=== PATIENT | male | born 1955 | race Caucasian/White ===

== ENCOUNTER → 2022-05-05 14:32 | Outpatient (BNVA) | payer OTHER, SELFPAY | PROVIDERS: Absent Provider Family Medicine; PCP Family Medicine; Visit Provider Internal Medicine | DX: I50.9 Heart failure, unspecified (principal); I25.10 Atherosclerotic heart disease of native coronary artery without angina pectoris; E78.5 Hyperlipidemia, unspecified; I25.2 Old myocardial infarction | CPT/HCPCS: 93005; 99204 ==

== ENCOUNTER → 2022-07-13 14:24 | Outpatient (BNVA) | payer OTHER, SELFPAY | PROVIDERS: PCP Family Medicine; Visit Provider Internal Medicine Cardiovascular Disease | DX: Z95.0 Presence of cardiac pacemaker (principal); I25.10 Atherosclerotic heart disease of native coronary artery without angina pectoris; I25.5 Ischemic cardiomyopathy | CPT/HCPCS: 99214 ==

== ENCOUNTER 2022-07-20 11:15 | Outpatient (CLI) | payer OTHER, SELFPAY ==
[2022-07-20 11:49] VITALS: BMI 27.5
[2022-07-20 11:49] LABS: Basophils # 0.1 10^3/uL (0.0-0.1); Basophils % 0.9 %; Eosinophils # 0.2 10^3/uL (0.0-0.8); Hematocrit 41.3 % (42.0-52.0); Hemoglobin 12.7 g/dL (11.7-16.6); Lymphocytes # 1.5 10^3/uL (0.8-4.8); Lymphocytes % 21.8 %; Mean Corpuscular HGB Conc 30.8 g/dL (30.0-36.0); Mean Corpuscular Hemoglobin 31.4 pg (28.0-34.0); Mean Corpuscular Volume 102.2 fl (80-94); Mean Platelet Volume 10.1 fL (7.4-10.4); Monocytes # 0.5 10^3/uL (0.2-0.9); Monocytes % 7.7 %; Neutrophils # 4.42 10^3/uL (1.8-7.7); Neutrophils % 66.3 %; Nucleated Red Blood Cells % 0 %; Platelet Count 165 10^3/cmm (130-400); Red Blood Count 4.04 10^6/uL (4.1-5.3); Red Cell Distribution Width 13.2 % (12.1-15.1); White Blood Count 6.7 10^3/uL (4.0-10.0)
[2022-07-20 12:00] LABS: Partial Thromboplastin Time 29.4 SECONDS (23.9-36.7)
[2022-07-20 12:07] LABS: Anion Gap 9.6 (5-19); Blood Urea Nitrogen 12 mg/dL (8-23); Calcium 10.2 mg/dL (8.5-10.5); Carbon Dioxide 29 mmol/L (22-29); Chloride 102 mmol/L (98-107); Glomerular Filtration Rate 74.3 mL/min (90-130); Glucose 105 mg/dL (65-115); Osmolality Calculated 282 mOsm/kg (285-295); Potassium 4.6 mmol/L (3.5-5.1); Sodium 136 mmol/L (136-145)
[2022-07-20 12:41] LABS: INR 0.94 (0.8-1.2)
--- NOTE | 2022-07-20 12:42 | P.HPUD_ITS ---
Surgery/Procedure H&P Update DATE OF PROCEDURE: July 20, 2022 DATE H&P PERFORMED: 07/13/22 H&P UPDATE INFORMATION: I have reviewed H&P completed within last 30 days, I have examined patient prior to procedure and No changes to prior documentation PREOP DIAGNOSIS: FÁTIMA of the BANKING PARALEGAL-D PRIMARY INDICATION FOR PROCEDURE: As above PLANNED PROCEDURE: Operation Date: 07/20/22 12:30 Proposed Procedures p gen change out 3324,Z45.010(Not Applicable) - Narciso Frederick MD PATIENT REASSESSED PRIOR TO SEDATION, WITH NO CHANGE NOTED: Yes PHYSICAL EXAM: alert, oriented x 3 and clear to auscultation bilaterally AIRWAY EVAL/ANESTHESIA PLAN: normal airway, see other exam findings, ASA I, ASA III, Monitored Anesthesia, Local Anesthesia, Risks, benefits & alternatives of sedation and/or procedure discussed and Patient agrees to continue as planned
[2022-07-20 14:00] VITALS: PULSE 70
--- NOTE | 2022-07-20 14:03 | PM.OP ---
Operative Report Date of procedure: July 20, 2022 Pre-op diagnosis: Preop Diagnosis FÁTIMA of the LIFE MANAGEMENT TEACHER-D Procedure: PROCEDURE: ICD REVISION PREOPERATIVE DIAGNOSIS: LIFE MANAGEMENT TEACHER-D elective replacement indication. POSTOPERATIVE DIAGNOSIS: LIFE MANAGEMENT TEACHER-D elective replacement indication. ESTIMATED BLOOD LOSS: None COMPLICATIONS: None. BRIEF HISTORY: The patient is 66-year-old white male who had a LIFE MANAGEMENT TEACHER-D implantation for heart failure /primary prophylaxis . He also is known to have complete heart block. The patient was found to have elective replacement indication, during routine office followup evaluation. For further management of patient's condition and for the symptomatic bradycardia/complete heart block, the patient required an LIFE MANAGEMENT TEACHER-D revision. Patient has a history of atherosclerotic heart disease, myocardial infarction, congestive heart failure with severe LV systolic dysfunction and complete heart block. The procedure was explained to the patient and his in detail with the risks and benefits. The risks of bleeding, hematoma, vascular injury, infection and other concomitant complications were explained in detail, which the patient understood well and consented to proceed. PROCEDURES PERFORMED: 1. Explantation of the old LIFE MANAGEMENT TEACHER-D device . 2. Implantation of the new LIFE MANAGEMENT TEACHER-D device The patient brought to the Cardiac Informatics Physician Liaison. The left side of the neck and the subclavian area were cleaned and draped in a sterile fashion. 1% Xylocaine was used for local anesthetic agent. A 2 inch long incision was made just below the previous pacemaker scar. By sharp and blunt dissection, the ICD pocket was accessed. The old generator was delivered from the pocket. The generator was detached from the lead s. The new generator was attached to the leads. The ICD pocket was copiously irrigated with vancomycin solution. Complete hemostasis was achieved. The lead was positioned behind the generator and the generator was attached to the pectoralis fascia by suturing with 0 Surgilon. Sponge counts were confirmed. The LIFE MANAGEMENT TEACHER-D pocket was closed in layers. Skin was approximated using 4-0 Vicryl. EXPLANTED DEVICE: LIFE MANAGEMENT TEACHER-D device: Date of implant 01/11/2016 Brand: Medtronic. Model number: VIVA CRTD Serial number: [id number]. IMPLANTED DEVICES: Ventricular Lead: Date of implantation: 01/11/2016 Model number: [id number] Serial number: [id number] Make: Medtronic. Atrial Lead Date of implantation 10/24/2015 Model number satrox S Serial number-[id number] Make: Biotronik LV lead Date of implant: 10/24/2015 Model: Corox Serial number: [id number] Make: [employer]oy[employer]ronik Implanted Generator: Date of implantation: 07/20/2022 Brand: [employer] LIFE MANAGEMENT TEACHER-D [email or web address] Model number: [id number]. Serial number: [id number] Stimulation Threshold: Through the Device--the ventricular sensing was not updated because of the dependency Lead impedance was 342 ohms and the pacing threshold was 1.0 volts at 0.4 milliseconds. The atrial sensing was 2.3 millivolts. The lead impedance was 551 ohms and the pacing threshold was 0.75 volts at 0.4 ms. The LV lead impedance was 551 ohms with a pacing threshold of 1.75 and pulse width of 0.4 ms the HV lead impedance was 69 ohms The pacemaker was set for DDDR mode with an upper rate of 130 and a lower rate of 60. The DFT testing was not done Ventricular tachycardia detection rate was set at 171 bpm The ventricular fibrillation detection rate was set at 200 bpm A pressure dressing was applied over the ICD site. The patient was transferred back to medical floor in stable condition.
[2022-07-20 19:10] VITALS: BP 127/86; PULSE 66; RESP 15
[2022-07-20] MEDS: mirtazapine 15 mg Tablet PO (19:57)
[2022-07-20] MEDS: quetiapine 25 mg Tablet 75 MG PO (19:57)
[2022-07-20] MEDS: lithium carbonate 300 mg Capsule PO (19:58)
[2022-07-20] MEDS: ceFAZolin 2,000 MG in sodium chloride 0.9% (plus) 50 ML 100 MG IV (19:59)
[2022-07-20 22:00] VITALS: PULSE 70
[2022-07-20] MEDS: HYDROcodone-acetaminophen 5-325 mg Tablet 1 TAB PO (22:10)
[2022-07-21] MEDS: HYDROcodone-acetaminophen 5-325 mg Tablet 1 TAB PO ×2 (02:15→10:23)
[2022-07-21] MEDS: ceFAZolin 2,000 MG in sodium chloride 0.9% (plus) 50 ML 100 MG IV ×2 (04:16→10:27)
[2022-07-21 04:55] VITALS: PULSE 71
--- NOTE | 2022-07-21 05:19 | ECG_ITS ---
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 Measurements Intervals [place] Rate: 70 P: 64 [place]: 104 QRS: 248 QRSD: 203 T: 101 QT: 471 QTc: 509 Interpretive Statements ELECTRONIC VENTRICULAR PACEMAKER ABNORMAL RHYTHM ECG No previous ECG available for comparison Electronically Signed On 07-21-2022 22:27:33 BILLING AND INSURANCE COORDINATOR by Narciso Frederick M.D. [id number]
[2022-07-21 07:25] VITALS: BP 136/67; PULSE 66; RESP 12; TEMP 37.1; O2SAT 93
[2022-07-21 08:00] VITALS: PULSE 77; RESP 16; O2SAT 95
[2022-07-21] MEDS: FUROsemide 20 mg Tablet PO (08:30)
[2022-07-21] MEDS: atorvastatin 40 mg Tablet 80 MG PO (08:30)
[2022-07-21] MEDS: doxazosin 4 mg Tablet 8 MG PO (08:30)
[2022-07-21] MEDS: lamoTRIgine 100 mg Tablet 200 MG PO (08:30)
[2022-07-21] MEDS: pantoprazole DR 40 mg Tablet PO (08:31)
[2022-07-21] MEDS: aspirin 81 mg EC Tablet PO (08:31)
[2022-07-21] MEDS: carvedilol 12.5 mg Tablet PO (08:31)
[2022-07-21] MEDS: gabapentin 300 mg Capsule PO (08:36)
--- NOTE | 2022-07-21 09:49 | P.PN_ITS ---
Subjective Subjective: This patient was admitted to the hospital following the CUTTING MACHINE FIXER-D revision for IV antibiotics and monitoring. Patient has been remaining stable with no specific complaints. No hematoma bleeding at the device insertion site. Vital signs are stable. Medications: Medication Review Details: Current Medications Hydrocodone Bitart/Acetaminophen (Hydrocodone-Acetaminophen 5-325 Mg Tablet) 1 tab PO Q4H PRN PRN Reason: MODERATE PAIN Last Admin: 07/21/22 02:15 Dose: 1 tab Albuterol Sulfate (Albuterol 2.5 Mg/3 Ml Neb) 2.5 mg INHALATION Q4H PRN PRN Reason: SOB/WHEEZING Aspirin (Aspirin 81 Mg Ec Tablet) 81 mg PO DAILY [facility] Last Admin: 07/21/22 08:31 Dose: 81 mg Atorvastatin Calcium (Atorvastatin 40 Mg Tablet) 80 mg PO DAILY [facility] Last Admin: 07/21/22 08:30 Dose: 80 mg Carvedilol (Carvedilol 12.5 Mg Tablet) 12.5 mg PO DAILY [facility] Last Admin: 07/21/22 08:31 Dose: 12.5 mg Doxazosin Mesylate (Doxazosin 4 Mg Tablet) 8 mg PO DAILY [facility] Last Admin: 07/21/22 08:30 Dose: 8 mg Furosemide (Furosemide 20 Mg Tablet) 20 mg PO DAILY [facility] Last Admin: 07/21/22 08:30 Dose: 20 mg Gabapentin (Gabapentin 300 Mg Capsule) 300 mg PO DAILY [facility] Last Admin: 07/21/22 08:36 Dose: 300 mg Sodium Chloride (Sodium Chloride 0.9%) 1,000 mls @ 75 mls/hr IV .[id number] [facility] Last Admin: 07/21/22 02:08 Dose: Not Given Cefazolin Sodium 2,000 mg/ (Sodium Chloride) 50 mls @ 100 mls/hr IV Q8H [facility]; Protocol Stop: 07/21/22 11:59 Last Infusion: 07/21/22 04:55 Dose: Infused Lamotrigine (Lamotrigine 100 Mg Tablet) 200 mg PO DAILY [facility] Last Admin: 07/21/22 08:30 Dose: 200 mg Lisinopril (Lisinopril 20 Mg Tablet) 20 mg PO DAILY [facility] Caban Carbonate (Caban Carbonate 300 Mg Capsule) 300 mg PO BID@0900,2100 SC H Last Admin: 07/21/22 08:36 Dose: Not Given Methocarbamol (Methocarbamol 500 Mg Tablet) 500 mg PO DAILY [facility] Last Admin: 07/21/22 08:33 Dose: Not Given Mirtazapine (Mirtazapine 15 Mg Tablet) 15 mg PO BEDTIME [facility] Last Admin: 07/20/22 19:57 Dose: 15 mg Pantoprazole Sodium (Pantoprazole Dr 40 Mg Tablet) 40 mg PO DAILY [facility] Last Admin: 07/21/22 08:31 Dose: 40 mg Quetiapine Fumarate (Quetiapine 25 Mg Tablet) 75 mg PO BEDTIME [facility] Last Admin: 07/20/22 19:57 Dose: 75 mg Vitals/I&O/Wt Last Vital Signs Temp 98.7 F 07/21/22 07:25 Pulse 77 07/21/22 08:00 Resp 16 07/21/22 08:00 BP 136/67 07/21/22 07:25 Pulse Ox 95 07/21/22 08:00 O2 Del Method 07/21/22 08:00 07/20/22 07/21/22 07/21/22 22:59 06:59 14:59 Intake Total 530 / 530 50 / 580 480 / 480 Balance 530 / 530 50 / 580 480 / 480 Weight last 48 hrs Weight 181 lb Physical Exam Narrative: GENERAL: The patient is alert and oriented times three. Not in any acute distress. HEENT: No significant pallor, icterus or lymphadenopathy.Oral cavity: There are no mucous membrane lesions. NECK: Trachea appears to be central. No masses noted. No JVD or thyromegaly appreciated. RESPIRATORY: Chest is symmetrical. No intercostals muscle retraction or any accessory muscle activation. No hematoma or bleeding at the device insertion site. There is no chest wall tenderness. Breath sounds are heard bilaterally. No rales or rhonchi heard. No evidence of any consolidation. BREASTS: Deferred. HEART: The heart sounds are normal. No S3 or S4. No significant murmurs. No pericardial rub ABDOMEN: No vessel pulsations or distention. No tenderness. No organomegaly appreciated. Bowel sounds are normally heard. : Deferred. RECTAL: Deferred. LYMPHATIC: No lymphadenopathy noted in the neck. EXTREMITIES: No edema or cyanosis. No clubbing. MUSCULOSKELETAL: No acute joint deformities or swelling SKIN: There are no significant rashes or ecchymosis NEUROPSYCHIATRIC: The patient is alert and oriented x3. Appears to be in a good mood. No tremors or rigidity noted. Data 07/20/22 11:35 07/20/22 11:35 Other Labs: Laboratory Last Values WBC 6.7 10^3/uL (4.0-10.0) 07/20/22 11:35 RBC 4.04 10^6/uL (4.1-5.3) L 07/20/22 11:35 Hgb 12.7 g/dL (11.7-16.6) 07/20/22 11:35 Hct 41.3 % (42.0-52.0) L 07/20/22 11:35 MCV 102.2 fl (80-94) H 07/20/22 11:35 MCH 31.4 pg (28.0-34.0) 07/20/22 11:35 MCHC 30.8 g/dL (30.0-36.0) 07/20/22 11:35 RDW 13.2 % (12.1-15.1) 07/20/22 11:35 Plt Count 165 10^3/cmm (130-400) 07/20/22 11:35 MPV 10.1 fL (7.4-10.4) 07/20/22 11:35 Neut % (Auto) 66.3 % 07/20/22 11:35 Lymph % (Auto) 21.8 % 07/20/22 11:35 Ector % (Auto) 7.7 % 07/20/22 11:35 Eos % (Auto) 3.0 % 07/20/22 11:35 Baso % (Auto) 0.9 % 07/20/22 11:35 Neut # (Auto) 4.42 10^3/uL (1.8-7.7) 07/20/22 11:35 Lymph # (Auto) 1.5 10^3/uL (0.8-4.8) 07/20/22 11:35 Ector # (Auto) 0.5 10^3/uL (0.2-0.9) 07/20/22 11:35 Eos # (Auto) 0.2 10^3/uL (0.0-0.8) 07/20/22 11:35 Baso # (Auto) 0.1 10^3/uL (0.0-0.1) 07/20/22 11:35 Nucleated RBC % (auto) 0 % 07/20/22 11:35 Nucleated RBCs # 0.0 /100WBC 07/20/22 11:35 PT 12.80 SECONDS (12.1-14.9) 07/20/22 11:35 INR 0.94 (0.8-1.2) 07/20/22 11:35 APTT 29.4 SECONDS (23.9-36.7) 07/20/22 11:35 Sodium 136 mmol/L (136-145) 07/20/22 11:35 Potassium 4.6 mmol/L (3.5-5.1) 07/20/22 11:35 Chloride 102 mmol/L (98-107) 07/20/22 11:35 Carbon Dioxide 29 mmol/L (22-29) 07/20/22 11:35 Anion Gap 9.6 (5-19) 07/20/22 11:35 BUN 12 mg/dL (8-23) 07/20/22 11:35 Creatinine 1.0 mg/dL (0.7-1.2) 07/20/22 11:35 GFR Calculation 74.3 mL/min (90-130) L 07/20/22 11:35 Glucose 105 mg/dL (65-115) 07/20/22 11:35 Calculated Osmolality 282 mOsm/kg (285-295) L 07/20/22 11:35 Calcium 10.2 mg/dL (8.5-10.5) 07/20/22 11:35 A&P Assessment and plan (1) Pacemaker at end of battery life: Patient had the revision of the CUTTING MACHINE FIXER-D yesterday. Currently remaining stable. No postprocedure complications. Finished the course of IV antibiotics. (2) Ischemic cardiomyopathy: No evidence of decompensation. May continue on the current medication. (3) Atherosclerosis of coronary artery of [place] heart without angina pectoris: Patient has no specific symptoms of coronary insufficiency. We will continue on the current medications. (4) Hyperlipidemia, unspecified: Continue on the current treatment. Plan The patient remains stable with no new symptoms, he is being discharged home today. Will be going home with a p.o. antibiotic for 5 days. He also may take multivitamins daily for 2 weeks. Appointment at the [facility] next we ek for a wound check and device check. Attestations Medical Necessity Statement*: Patient is going home today Coding Level of Care Code Acute Code for Chg Fwd Diagnoses Pacemaker at end of battery life Z45.010 Ischemic cardiomyopathy I25.5 Atherosclerosis of coronary artery of [place] heart without angina pectoris I25.10 Hyperlipidemia, unspecified E78.5
[2022-07-21 11:43] VITALS: BP 126/82; PULSE 66; RESP 16; TEMP 36.9; O2SAT 95
== END 2022-07-21 12:15 | disposition home or self-care (01) ==
LOC: CCL 11:18 → CSU 15:46
PROVIDERS: PCP Family Medicine; Visit Provider Internal Medicine Cardiovascular Disease
DX: Z45.02 Encounter for adjustment and management of automatic implantable cardiac defibrillator (principal); I25.5 Ischemic cardiomyopathy; I25.10 Atherosclerotic heart disease of native coronary artery without angina pectoris; E78.5 Hyperlipidemia, unspecified
CPT/HCPCS: 33241; 33264; 36415; 80048; 85025; 85610; 85730; 93005; 96361; 96365; 96367; 97165; 99152; 99153; C1769; C1882; J0690; J1200; J2250; J3010; J3370; J7030; J7050

== ENCOUNTER → 2022-08-01 09:00 | Outpatient (BNVA) | payer OTHER, SELFPAY | PROVIDERS: PCP Family Medicine; Visit Provider Nurse Practitioner Family | DX: Z95.810 Presence of automatic (implantable) cardiac defibrillator (principal) | CPT/HCPCS: 93289; 99024; 99213 ==

== ENCOUNTER 2022-10-04 15:22 | Outpatient (CLI) | payer OTHER, SELFPAY ==
--- NOTE | 2022-10-04 14:45 | USCV_ITS ---
Jim Carney Age: 67 Gender: M : 1955 Exam Date: 10/04/2022 16:04 Ordering Phys: Narciso Frederick MD ([email or web address]) Technologist: CT Exam Location: [facility] [place] Indication: BP: 110 / 60 HR: 65 Rhythm: Sinus Technical Quality: Adequate MEASUREMENTS (Male / Female) Normal Values 2D ECHO LVOT Diameter 2.3 cm LV Ejection Fraction MOD 2C 48.7 % LV Ejection Fraction 2C AL 47.5 % LA Diameter 5.0 cm IVC Diameter 1.7 cm M-MODE Aortic Annulus Diameter 4.0 cm LA Ao Ratio MM 1.4 MV E Point Septal Separation 2.4 cm DOPPLER AV Peak Velocity 163.0 cm/s LVOT Peak Velocity 83.3 cm/s AV Area Cont Eq vti 2.5 cm squared AV Area Cont Eq pk 2.1 cm squared MV Peak Velocity 97.0 cm/s MV Area PHT 5.0 cm squared Mitral E to A Ratio 0.7 MV E' Velocity 27.0 cm/s Mitral E to MV E' Ratio 6.2 Mitral E to LV E' Lateral Ratio 4.5 Mitral E to LV E' Septal Ratio 10.1 TR Peak Velocity 370.4 cm/s TR Peak Gradient 54.9 mmHg TR Mean Velocity 307.0 cm/s TR Mean Gradient 43.3 mmHg TR Velocity Time Integral 180.4 cm TV Peak E Velocity 76.0 cm/s Right Atrial Pressure 3.0 mmHg Pulmonary Artery Systolic Pressu 57.9 mmHg PV Peak Velocity 108.0 cm/s FINDINGS Left Ventricle Diffuse hypokinesia of the left ventricular ejection fraction of 43%. Moderately dilated LV cavity Right Ventricle Normal right ventricular size and systolic function. Right Atrium The right atrium is normal in size. Left Atrium Mildly increased left atrial size. Mitral Valve Thickened mitral valve. Mild mitral valve regurgitation. Aortic Valve Thickened aortic valve. Tricuspid Valve No gross abnormalities noted Pulmonic Valve No gross abnormalities noted Pericardium Normal pericardium without effusion. Aorta Normal ascending aorta dimension. IVC The inferior vena cava appears normal. CONCLUSIONS Diffuse hypokinesia of the left ventricular ejection fraction of 43%. Moderately dilated LV cavity. Mildly increased left atrial size. Thickened mitral valve. Mild mitral valve regurgitation. Thickened aortic valve. There is no pericardial effusion. There are no intracardiac masses. No similar previous studies are available for comparison Dr Narciso Frederick MD [facility] (Electronically Signed) Final Date: 06 Oct 2022 09:49 S
== END 2022-10-04 15:23 | disposition home or self-care (01) ==
LOC: RAD 15:24
PROVIDERS: PCP Family Medicine; Visit Provider Internal Medicine Cardiovascular Disease
DX: I42.9 Cardiomyopathy, unspecified (principal)
CPT/HCPCS: 93306

== ENCOUNTER 2022-11-01 15:20 | Emergency (ER) | payer OTHER, SELFPAY ==
--- NOTE | 2022-11-01 15:24 | XRR_ITS ---
PROCEDURE INFORMATION: Exam: XR Chest Exam date and time: 11/01/2022 3:33 PM Age: 67 years old Clinical indication: Pain; Cough; Angina pectoris; Prior surgery; Surgery date: 6+ months; Surgery type: Pacemaker; Additional info: Chest pain TECHNIQUE: Imaging protocol: Radiologic exam of the chest. Views: 1 view. COMPARISON: No relevant prior studies available. FINDINGS: Lungs: There is patchy indistinct left basilar infiltrate possibly secondary to pneumonia. Remaining lung aguayo are clear. Pleural spaces: Unremarkable. No pleural effusion. No pneumothorax. Heart/Mediastinum: Heart is enlarged. There are pacemaker wires in ICD monitors extending to the right atrium and right ventricle. Bones/joints: Unremarkable for age. XR/XR chest 1V portable [id number] IMPRESSION: Cardiomegaly with patchy left basilar infiltrate, possible pneumonia.
--- NOTE | 2022-11-01 15:24 | ECG_ITS ---
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 Measurements Intervals [place] Rate: 78 P: -28 [place]: 186 QRS: -88 QRSD: 145 T: 87 QT: 392 QTc: 448 Interpretive Statements ELECTRONIC VENTRICULAR PACEMAKER ABNORMAL RHYTHM ECG Compared to ECG 07/21/2022 05:19:22 No significant changes Electronically Signed On 11-01-2022 16:52:13 CDT by Layla Shepherd M.D. [email or web address] centerYUPPTVoh[email or web address].[employer]/store/[id number]
[2022-11-01 15:52] LABS: Basophils % 0.5 %; Eosinophils # 0.1 10^3/uL (0.0-0.8); Eosinophils % 1.5 %; Hematocrit 42.5 % (42.0-52.0); Hemoglobin 12.9 g/dL (11.7-16.6); Lymphocytes # 1.1 10^3/uL (0.8-4.8); Lymphocytes % 14.8 %; Mean Corpuscular HGB Conc 30.4 g/dL (30.0-36.0); Mean Corpuscular Hemoglobin 31.8 pg (28.0-34.0); Mean Corpuscular Volume 104.7 fl (80-94); Mean Platelet Volume 10.1 fL (7.4-10.4); Monocytes # 0.6 10^3/uL (0.2-0.9); Monocytes % 7.7 %; Neutrophils # 5.58 10^3/uL (1.8-7.7); Neutrophils % 75.4 %; Nucleated Red Blood Cells % 0 %; Platelet Count 206 10^3/cmm (130-400); Red Blood Count 4.06 10^6/uL (4.1-5.3); Red Cell Distribution Width 13.9 % (12.1-15.1); White Blood Count 7.4 10^3/uL (4.0-10.0)
[2022-11-01 16:01] VITALS: BP 144/88; PULSE 78; RESP 18; TEMP 37.1; O2SAT 94; BMI 28.1
[2022-11-01 16:47] LABS: Troponin(5th) Baseline 81 ng/L (0-15)
[2022-11-01 16:57] LABS: Alanine Aminotransferase 11 U/L (0-41); Albumin Level 4.2 g/dL (3.5-5.2); Alkaline Phosphatase 104 U/L (40-130); Aspartate Amino Transferase 15 U/L (0-40); Blood Urea Nitrogen 8 mg/dL (8-23); Calcium 9.9 mg/dL (8.5-10.5); Carbon Dioxide 30 mmol/L (22-29); Chloride 104 mmol/L (98-107); Globulin 2.4 g/dL (1.3-4.6); Glomerular Filtration Rate 111.8 mL/min (90-130); Glucose 102 mg/dL (65-115); NT Pro B Type Natriuretic Pept 1017 pg/mL (0-125); Osmolality Calculated 289 mOsm/kg (285-295); Sodium 140 mmol/L (136-145); Total Bilirubin 0.4 mg/dL (0.15-1.2); Total Protein 6.6 g/dL (6.6-8.7)
[2022-11-01 16:59] LABS: Anion Gap 10.1 (5-19); Potassium 4.1 mmol/L (3.5-5.1)
--- NOTE | 2022-11-01 17:08 | ED_ITS ---
HPI - SOB/Dyspnea General: Chief Complaint: Shortness of Breath/Dyspnea Stated Complaint: fluid in chest, sent by Jessu Time Seen by Provider: 11/01/22 16:31 History of Present Illness: HPI Narrative: Patient presents to the ER with complaints of shortness of breath. Patient says he has CHF which has been worsening swelling is been worsening and he went to the [facility] yesterday where he had a chest x-ray that showed a pleural effusion and he was sent home on oxygen. Patient feels worse today. MD elicited complaint: shortness of breath Pertinent past history: congestive heart failure Onset (ago): week(s) (Going downhill for weeks) Timing: constant and progressively worsening Severity: mild Relieving factors: oxygen, bronchodilators and medication Known history of: congestive heart failure Associated symptoms: Reports cough Review of Systems General: Reports: 10 or more systems reviewed and unremarkable except in HPI and below PFSH ED PFSH: Medical History Abdominal aortic aneurysm (AAA) without rupture Cardiac resynchronization therapy defibrillator (HAIRSPRING VIBRATOR-D) in place Hyperlipidemia, unspecified Physical Exam Const: COMMON NORMALS: no acute distress, average body habitus, patient oriented x3, no limitations, healthy appearing, alert and well nourished HENMT: COMMON NORMALS: normocephalic, atraumatic, hearing grossly normal bilaterally, external ears normal, Normal external nose present and moist oral mucous membranes HEAD & SCALP: normocephalic and atraumatic NOSE: Normal external nose present EXTERNAL EAR: Yes external ears normal Eye: COMMON NORMALS: Equal, round and reactive pupils present, EOMs intact bilaterally, conjunctivae normal and no scleral icterus CONJUNCTIVA: Yes conjunctivae normal PUPIL: Yes Equal, round and reactive pupils present Neck/C-Spine: COMMON NORMALS: full ROM, no lymphadenopathy, supple, no meningeal signs, no JVD and Thyroid normal THYROID: Thyroid normal Lymph: LYMPHATIC: no lymphadenopathy noted Chest: COMMONS NORMALS: normal inspection of the chest and normal palpation of entire chest wall Resp: EFFORT & INSPECTION: Yes able to speak in complete sentences AUSCULTATION: diminished lung sounds bilateral and diffuse Cardio: COMMON NORMALS: no JVD, regular rate, regular rhythm, S1 normal heart sound present, S2 normal heart sound present, No gallops present (Cardio), No cl icks present (Cardio) and No murmurs present (Cardio) RATE: regular rate RHYTHM: regular rhythm HEART SOUNDS: S1 normal heart sound present and S2 normal heart sound present GI: COMMON NORMALS: Normal to inspection, nondistended, normoactive bowel sounds present, Soft to palpation, non-tender, No hepatosplenomegaly present and no masses PALPATION: Yes Soft to palpation and Yes No hepatosplenomegaly present : COMMON NORMALS: Yes no CVA tenderness BLADDER/KIDNEY EXAM: Yes no CVA tenderness Back/Pelvis: COMMON NORMALS: no CVA tenderness Extremity: NARRATIVE EXTREMITY EXAM: 1-2+ pitting edema bilateral lower extremities Neuro: COMMON NORMALS: patient oriented x3 SENSORIUM/ORIENTATION: Yes alert MENINGEAL SIGNS: Yes no meningeal signs Course Vital Signs: Vital signs: Vital Signs Temperature 98.8 F 11/01/22 16:01 Pulse Rate 78 11/01/22 16:01 Respiratory Rate 18 11/01/22 16:01 Blood Pressure 144/88 11/01/22 16:01 Pulse Oximetry 94 11/01/22 16:01 Oxygen Delivery Me thod Room Air 11/01/22 16:01 MDM - SOB/Dyspnea Medical Decision Making Patient presents to the ER with complaints of shortness of breath secondary to CHF. [facility] here for further work-up. Patient had labs drawn that showed is a had a normal white count of 7.4 normal hemoglobin hematocrit 12.9 42.5 and slightly elevated BNP of about 1000. Chest x-ray was performed which showed cardiomegaly with a patchy left basilar infiltrate possible pneumonia. Patient was given antibiotics of Rocephin 1 g in his IV. Patient remained on room air and continued to keep his O2 sats approximately 92 to 94% or better. Patient will be discharged on Augmentin 875 1 p.o. twice daily and Lasix an additional 20 mg a day for the next 5 days. Patient should follow back up with his PCP in approximately 1 week for further evaluation and work-up. Medical Records I reviewed the patient's medical records. Lab Data I reviewed the patient's lab results. 11/01/22 15:37 11/01/22 15:37 Labs/Radiology: Radiology Impressions Chest X-Ray 11/01/22 15:24 IMPRESSION: Cardiomegaly with patchy left basilar infiltrate, possible pneumonia. Laboratory Results WBC 7.4 10^3/uL (4.0-10.0) 11/01/22 15:37 RBC 4.06 10^6/uL (4.1-5.3) L 11/01/22 15:37 Hgb 12.9 g/dL (11.7-16.6) 11/01/22 15:37 Hct 42.5 % (42.0-52.0) 11/01/22 15:37 MCV 104.7 fl (80-94) H 11/01/22 15:37 MCH 31.8 pg (28.0-34.0) 11/01/22 15:37 MCHC 30.4 g/dL (30.0-36.0) 11/01/22 15:37 RDW 13.9 % (12.1-15.1) 11/01/22 15:37 Plt Count 206 10^3/cmm (130-400) 11/01/22 15:37 MPV 10.1 fL (7.4-10.4) 11/01/22 15:37 Neut % (Auto) 75.4 % 11/01/22 15:37 Lymph % (Auto) 14.8 % 11/01/22 15:37 [place] % (Auto) 7.7 % 11/01/22 15:37 Eos % (Auto) 1.5 % 11/01/22 15:37 Baso % (Auto) 0.5 % 11/01/22 15:37 Neut # (Auto) 5.58 10^3/uL (1.8-7.7) 11/01/22 15:37 Lymph # (Auto) 1.1 10^3/uL (0.8-4.8) 11/01/22 15:37 [place] # (Auto) 0.6 10^3/uL (0.2-0.9) 11/01/22 15:37 Eos # (Auto) 0.1 10^3/uL (0.0-0.8) 11/01/22 15:37 Baso # (Auto) 0.0 10^3/uL (0.0-0.1) 11/01/22 15:37 Nucleated RBC % (auto) 0 % 11/01/22 15:37 Nucleated RBCs # 0.0 /100WBC 11/01/22 15:37 Sodium 140 mmol/L (136-145) 11/01/22 15:37 Potassium 4.1 mmol/L (3.5-5.1) 11/01/22 15:37 Chloride 104 mmol/L (98-107) 11/01/22 15:37 Carbon Dioxide 30 mmol/L (22-29) H 11/01/22 15:37 Anion Gap 10.1 (5-19) 11/01/22 15:37 BUN 8 mg/dL (8-23) 11/01/22 15:37 Creatinine 0.7 mg/dL (0.7-1.2) 11/01/22 15:37 GFR Calculation 111.8 mL/min (90-130) 11/01/22 15:37 Glucose 102 mg/dL (65-115) 11/01/22 15:37 Calculated Osmolality 289 mOsm/kg (285-295) 11/01/22 15:37 Calcium 9.9 mg/dL (8.5-10.5) 11/01/22 15:37 Total Bilirubin 0.4 mg/dL (0.15-1.2) 11/01/22 15:37 AST 15 U/L (0-40) 11/01/22 15:37 ALT 11 U/L (0-41) 11/01/22 15:37 Alkaline Phosphatase 104 U/L (40-130) 11/01/22 15:37 Troponin T Baseline 81 ng/L (0-15) H 11/01/22 15:37 Troponin T 120 Minute 81.82 ng/L (0-15) H 11/01/22 16:46 Delta Troponin T 0.82 ABS# (0-10) 11/01/22 16:46 NT-Pro-B Natriuret Pep 1017 pg/mL (0-125) H 11/01/22 15:37 Total Protein 6.6 g/dL (6.6-8.7) 11/01/22 15:37 Albumin 4.2 g/dL (3.5-5.2) 11/01/22 15:37 Globulin 2.4 g/dL (1.3-4.6) 11/01/22 15:37 EKG Data EKG 1: I personally reviewed and interpreted this EKG as follows: EKG Interpretation Date: 11/01/22 EKG interpretation time: 15:24 Prior EKG tracings: not available for review Interpretation: EKG showed rate of 78 bpm, [place] interval 186, QRS 145, QTc 448, electronic ventricular pacemaker. EKG 2: I personally reviewed and interpreted this EKG as follows: EKG Interpretation Date: 11/01/22 EKG interpretation time: 17:35 Interpretation: EKG showed ventricular rate of 77 bpm, [place] interval 152, QRS duration 187, QTc 487, electrical ventricular pacemaker Discharge Plan Discharge Patient Disposition: Home Clinical Impression: Community acquired pneumonia Qualifiers: Laterality: left Lung location: lower lobe of lung Qualified Code(s): J18.9 - Pneumonia, unspecified organism Congestive heart failure Qualifiers: Heart failure type: unspecified Heart failure chronicity: acute on chronic Qualified Code(s): I50.9 - Heart failure, unspecified Condition: Stable Prescriptions: New amoxicillin-pot clavulanate 875-125 mg tablet 1 tab PO Q12H Qty: 20 0RF Lasix 20 mg tablet 20 mg PO DAILY Qty: 5 0RF No Action lamotrigine 200 mg tablet 200 mg PO DAILY mirtazapine 15 mg tablet 15 mg PO DAILY quetiapine 25 mg tablet 75 mg PO BEDTIME pantoprazole 40 mg tablet,delayed release (DR/EC) 40 mg PO DAILY albuterol 90 mcg/actuation aerosol 1 mcg inhalation DIRECTED doxazosin 8 mg tablet 8 mg PO DAILY lisinopril 20 mg tablet 5 mg PO QPM atorvastatin 80 mg tablet 80 mg PO DAILY gabapentin 300 mg capsule 300 mg PO DAILY furosemide 20 mg tablet 5 mg PO DAILY methocarbamol 500 mg tablet 500 mg PO DAILY aspirin [Adult Low Dose Aspirin] 81 mg tablet,delayed release (DR/EC) 81 mg PO DAILY Qty: 90 3RF carvedilol 25 mg tablet 12.5 mg PO DAILY Rx Instructions: must administer with a meal/food lithium carbonate 300 mg capsule 300 mg PO DAILY Discharge Orders: Discharge ED (Routine); Ordered 11/01/22 Ordered By: Chauncey Chaparro Referrals: Chanell Lee MD [Primary Care Provider] - 1 week Patient Instructions: Heart Failure (ED), Pneumonia (ED) Activity Restrictions/Additional Instructions: Please take all your medicine as directed this includes your new antibiotic for the next 10 days and the additional Lasix for the next 5 days. Please follow-up with your primary care doctor in the next 7 to 10 days as needed or return to the ER for further evaluation and treatment if your symptoms worsen. 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
--- NOTE | 2022-11-01 17:35 | ECG_ITS ---
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 Measurements Intervals [place] Rate: 77 P: 5 MD: 152 QRS: 137 QRSD: 197 T: -49 QT: 455 QTc: 517 Interpretive Statements ELECTRONIC VENTRICULAR PACEMAKER ABNORMAL RHYTHM ECG Compared to ECG 11/01/2022 15:57:43 No significant changes Electronically Signed On 11-02-2022 6:23:40 CDT by Layla Shepherd M.D. [email or web address]
[2022-11-01 17:41] LABS: Troponin 5 2HR 81.82 ng/L (0-15)
[2022-11-01 17:42] LABS: Troponin 5 2HR Delta 0.82 ABS# (0-10)
[2022-11-01] MEDS: cefTRIAXone 1,000 MG in sodium chloride 0.9% (plus) 50 ML 100 MG IV (18:00)
== END 2022-11-01 19:05 | disposition home or self-care (01) ==
PROVIDERS: Physician Assistant; Emergency Provider Emergency Medicine; PCP Family Medicine
DX: J18.9 Pneumonia, unspecified organism (principal); I50.9 Heart failure, unspecified
CPT/HCPCS: 36415; 71045; 80053; 83880; 84484; 85025; 87040; 93005; 96365; 99285; J0696

== ENCOUNTER → 2022-11-10 15:02 | Outpatient (BNVA) | payer OTHER, SELFPAY | PROVIDERS: PCP Family Medicine; Visit Provider Internal Medicine | DX: I50.9 Heart failure, unspecified (principal); I25.10 Atherosclerotic heart disease of native coronary artery without angina pectoris; I25.5 Ischemic cardiomyopathy; E78.5 Hyperlipidemia, unspecified | CPT/HCPCS: 80048; 83880; 99214 ==

== ENCOUNTER 2023-01-02 07:34 | Outpatient (CLI) | payer OTHER, SELFPAY ==
--- NOTE | 2023-01-02 07:43 | CT_ITS ---
WS: [id number] CT chest w con* [id number] HISTORY: Persistent LEFT PLEURAL EFFUSION TECHNIQUE: Axial imaging performed through the thorax. Coronal and sagittal reformats are submitted. All CT scans at [facility] use at least one of these dose optimization techniques: automated exposure control; mA and/or kV adjustment per patient size (includes targeted exams where dose is mat ched to clinical indication); or iterative reconstruction. CONTRAST: Omnipaque 350; 100 mL IV. DLP: 330.37 mGy.cm COMPARISON: Chest radiograph 11/01/2022 Lungs and central airway: Mild hyperinflation. Mild interstitial thickening along the superior RIGHT major fissure. Linear areas of consolidation at the lung bases. Pleura: Small layering LEFT pleural effusion. Throughout the LEFT thorax there is mild nodularity of the pleura. This is very minimal nodularity but is asymmetric to the RIGHT. Heart and pericardium: Marked enlargement of the heart. Greatest involvement of the LEFT heart chambe rs. Dual lead LEFT subclavian pacer. Mediastinum and minesh: No mediastinum or hilar adenopathy. Vessels: Mild diffuse atherosclerosis aorta. Pulmonary artery is top normal size. Chest wall and lower neck: No soft tissue masses. Upper abdomen: Suprarenal moderate atherosclerotic plaque in aorta. No adrenal mass. Small hiatal her anna. Osseous structures: Schmorl's nodes in the thoracic vertebral bodies at multiple levels. No destructi ve bone lesion. CT/CT chest w con* [id number] IMPRESSION: 1. Small LEFT pleural effusion. There is very mild LEFT pleural nodularity whi ch is asymmetric to the RIGHT. Suggest short-term chest CT follow-up. Recommend chest CT with IV contrast in 3 months to reevaluate the mildly pleural nodular ity. 2. Marked enlargement of the heart. 3. Bibasilar areas of atelectasis. 4. No pneumonia.
--- NOTE | 2023-01-02 07:43 | CT_ITS ---
WS: [id number] CT LUMBAR SPINE TECHNIQUE: Noncontrast CT of the lumbar spine with coronal and sagittal reformatted images. CLINICAL INFORMATION: LUMBAR RADICULOPATHY COMPARISON: None. DLP: 1175.[address] scans at [facility] use at least one of these dose optimization techniques: automated e xposure control; mA and/or kV adjustment per patient size (includes targeted exams where dose is matc hed to clinical indication); or iterative reconstruction. FINDINGS: Osteopenia. Slight anterolisthesis L3 on L4 and L4 on L5. Partially visualized aortic endograft with biiliac extension. Small LEFT pleural effusion. Tiny RIGHT pleural effusion. Adrenal glands are kaye l L1-L2: Mild disc bulging with osteophytic ridging. Mild facet arthropathy. Spinal canal and foramen a re patent. L2-L3: Mild disc osteophyte complex with endplate ridging. Moderate central canal stenosis. Narrowing of the subarticular recess bilaterally. Mild LEFT greater than RIGHT foraminal narrowing. Moderate f acet arthropathy. L3-L4: Slight anterolisthesis L3 on L4. Moderate central canal stenosis. Moderate bilateral foraminal narrowing RIGHT greater than LEFT. Moderate to advanced facet arthropathy. L4-L5: Slight anterolisthesis L4 on L5. Pedicle screw fixation L4-L5 with laminectomy defects interbo dy fusion. Spinal canal and foramen are patent. L5-S1: Slight retrolisthesis L5 on S1. Slight effacement of the ventral thecal sac with contact of th e traversing LEFT greater than RIGHT S1 nerve roots. Foramen are patent. Moderate facet arthropathy. Visualized pelvic bony structures: Normal. Paravertebral soft tissues: Normal. CT/CT lumbar spine wo con* [id number] IMPRESSION: 1. Prior postoperative changes pedicle screw fixation L4-L5 with interbody fus ion. No evidence of pedicle screw loosening. Hardware appears intact. 2. Moderate central canal stenosis L2-L3 due to disc bulging in combination wi th facet arthropathy and ligamentum flavum hypertrophy. Narrowing of the subart icular recess bilaterally. 3. Mild residual central canal stenosis L3-L4 with remote laminectomy defects. 4. Spinal canal and foramen are patent at the L4-L5 and L5-S1 fusion levels. 5. Mild disc bulging L5-S1 with slight contact of the LEFT greater than RIGHT S1 nerve roots. 6. Moderate bilateral L3-L4 foraminal narrowing. Mild bilateral L2-L3 foramina l narrowing. 7. Small LEFT pleural effusion. Tiny RIGHT pleural effusion. 8. Partially visualized aortic endograft with biiliac extension. This can be f urther evaluated with CTA. Excluded aneurysm sac only partially visualized
[2023-01-02] MEDS: iohexol 350 mg/mL 500 mL Btl (per mL) IV (08:07)
== END 2023-01-02 07:35 | disposition home or self-care (01) ==
LOC: RAD 07:37
PROVIDERS: PCP Family Medicine; Visit Provider Family Medicine
DX: J90 Pleural effusion, not elsewhere classified (principal); J98.11 Atelectasis; R91.8 Other nonspecific abnormal finding of lung field; M54.16 Radiculopathy, lumbar region; Z98.1 Arthrodesis status; M48.061 Spinal stenosis, lumbar region without neurogenic claudication; M51.37 Other intervertebral disc degeneration, lumbosacral region; M47.817 Spondylosis without myelopathy or radiculopathy, lumbosacral region
CPT/HCPCS: 71260; 72131; Q9967

== ENCOUNTER → 2023-05-02 11:23 | Outpatient (BNVA) | payer OTHER, SELFPAY | PROVIDERS: PCP Family Medicine; Visit Provider Anesthesiology Pain Medicine | DX: M51.16 Intervertebral disc disorders with radiculopathy, lumbar region; M47.816 Spondylosis without myelopathy or radiculopathy, lumbar region | CPT/HCPCS: 99204 ==

== ENCOUNTER → 2023-05-15 14:48 | Outpatient (BNVA) | payer OTHER, SELFPAY | PROVIDERS: PCP Family Medicine; Visit Provider Anesthesiology Pain Medicine | DX: M54.16 Radiculopathy, lumbar region (principal) | CPT/HCPCS: 62323; J1040 ==

== ENCOUNTER 2023-12-20 09:21 | Outpatient (CLI) | payer OTHER, SELFPAY ==
--- NOTE | 2023-12-20 09:44 | XR_ITS ---
WS: [id number] XR lumbar spine min 4V [id number] REASON FOR EXAM: DDD LUMBAR FINDINGS: Posterior decompression with pedicle screws and interconnecting rods L4-L5. Interbody fusion device L 4-L5. Surgical appliances are intact and in proper position and alignment. Mild dextroscoliosis. Mild exaggeration of the normal lordosis of the lumbar spine. No focal vertebral body abnormality. Mild to moderate narrowing of the disc spaces L1-L4. Significant narrowing of the disc space at L5-S1 . Aortoiliac vascular stents. XR/XR lumbar spine min 4V [id number] IMPRESSION: Posterior lumbar fusion L4-L5. Degenerative spondylosis as above.
== END 2023-12-20 09:22 | disposition home or self-care (01) ==
PROVIDERS: PCP Family Medicine
DX: M51.36 Other intervertebral disc degeneration, lumbar region (principal); M41.86 Other forms of scoliosis, lumbar region; M48.061 Spinal stenosis, lumbar region without neurogenic claudication; M48.07 Spinal stenosis, lumbosacral region
CPT/HCPCS: 72110

== ENCOUNTER 2024-02-15 09:48 | Outpatient (CLI) | payer OTHER, SELFPAY ==
--- NOTE | 2024-02-15 09:52 | CT_ITS ---
WS: [id number] CT THORACIC SPINE HISTORY: FAILED BACK SYNDROME OF LUMBAR SPINE TECHNIQUE: Contiguous 2.0 mm axial images are reviewed to thoracic spine. Images are reformatted in s agittal and coronal planes. All CT scans at [facility] use at least one of these dose optimiz ation techniques: automated exposure control; mA and/or kV adjustment per patient size (includes targ eted exams where dose is matched to clinical indication); or iterative reconstruction. DLP: 696.31 mGy.cm COMPARISON: Chest CT 01/02/2023 LEFT subclavian pacer/defibrillator. Fusion hardware in the lower lumbar spine. Bones are osteopenic. Mild increase in thoracic kyphosis with mild LEFT curvature of the spine. Disc spaces are all moderately narrowed. There are large RIGHT lateral clawlike bridging osteophytes begin deepa at T4-T12. Very mild anterior wedging of T6, T7 and T8. T1-2: Mild bilateral facet joint arthritis and foraminal narrowing. T2-3: Mild annular disc bulging. Mild foraminal narrowing. T3-4: Moderate facet joint arthritis with mild central and foraminal narrowing. T4-5: Facet joint arthritis with mild foraminal narrowing. T5-6: Facet joint arthritis with mild foraminal and central stenosis. T6-7: Facet joint arthritis with minimal foraminal narrowing. T7-8: Normal. T8-9: Facet joint arthritis with mild foraminal narrowing. T9-10: Mild annular disc bulging with mild central and moderate foraminal stenosis. T10-11: Mild annular disc bulging with facet arthritis. T11-12: Normal. Small to moderate layering LEFT pleural effusion is chronic and has been described on prior studies. There is a very tiny RIGHT pleural effusion. RIGHT basilar atelectasis. Mild atherosclerosis thoracic aorta. Mildly prominent pulmonary artery. CT/CT thoracic spin wo con* [id number] IMPRESSION: 1. Large clawlike osteophytes along the RIGHT lateral thoracic spine from T4-T 12. 2. Osteopenia with disc space narrowing and facet arthritis. 3. No high-grade central stenosis. Multilevel areas of facet and mild central stenosis throughout the thoracic spine. 4. Mild central with moderate bilateral foraminal stenosis at T9-10 is most si gnificant. 5. Chronic small to moderate LEFT pleural effusion and very small RIGHT pleura l effusion.
== END 2024-02-15 09:49 | disposition home or self-care (01) ==
LOC: RAD 09:49
PROVIDERS: PCP Family Medicine; Visit Provider General Practice
DX: M47.27 Other spondylosis with radiculopathy, lumbosacral region (principal); M96.1 Postlaminectomy syndrome, not elsewhere classified; M25.78 Osteophyte, vertebrae; M46.94 Unspecified inflammatory spondylopathy, thoracic region; M85.88 Other specified disorders of bone density and structure, other site; M99.62 Osseous and subluxation stenosis of intervertebral foramina of thoracic region; J90 Pleural effusion, not elsewhere classified; M43.26 Fusion of spine, lumbar region
CPT/HCPCS: 72128

== ENCOUNTER 2024-05-21 10:48 | Inpatient (IN) | payer OTHER, MEDICARE, SELFPAY ==
[2024-05-21] VITALS (15 sets, daily range): BP systolic 108–143; BP diastolic 65–94; PULSE 82–101; RESP 17–22; TEMP 37.1–37.4; O2SAT 92–96; BMI 30.4
--- NOTE | 2024-05-21 11:01 | XRR_ITS ---
PROCEDURE INFORMATION: Exam: XR Chest Exam date and time: 05/21/2024 11:09 AM Age: 68 years old Clinical indication: Cough; Prior surgery; Surgery date: 6+ months; Surgery type: Pacer; Additional info: Dyspnea/cough TECHNIQUE: Imaging protocol: Radiologic exam of the chest. Views: 1 view. COMPARISON: CT chest w con* [id number] 01/02/2023 8:05 AM FINDINGS: Tubes, catheters and devices: Multi lead electronic cardiac device projects over the left chest. Lungs: Focal hazy airspace opacity in the left lower lung. Pleural spaces: No distinct pneumothorax. Probable left pleural effusion. Heart/Mediastinum: Cardiomediastinal silhouette is midline and enlarged. Bones/joints: No distinct acute osseous findings. XR/XR chest 1V portable [id number] IMPRESSION: 1. Focal hazy airspace opacity in the left lower lung. This may represent infiltrate, atelectasis, edema, and/or effusion. 2. Probable left pleural effusion. 3. Cardiomediastinal silhouette is midline and enlarged.
[2024-05-21] MEDS: methylPREDNISolone sod succ 125 mg/2 mL INJ IVP (11:07)
[2024-05-21 11:08] LABS: Basophils % 0.1 %; Eosinophils % 0.1 %; Hematocrit 35.3 % (37-53); Lymphocytes % 9.6 %; Mean Corpuscular HGB Conc 31.4 g/dL (30-55); Mean Corpuscular Hemoglobin 32.4 pg (27-33); Mean Corpuscular Volume 102.9 fl (82-101); Mean Platelet Volume 10.3 fL (7.4-10.4); Monocytes # 1.1 10^3/uL (0.2-0.9); Monocytes % 9.8 %; Neutrophils # 8.69 10^3/uL (1.8-7.7); Neutrophils % 79.8 %; Nucleated Red Blood Cells % 0 %; Platelet Count 147 10^3/cmm (157-399); Red Blood Count 3.43 10^6/uL (3.85-5.65); Red Cell Distribution Width 13.3 % (12.1-15.1); White Blood Count 10.87 10^3/uL (3.29-11.43)
--- NOTE | 2024-05-21 11:19 | ECG_ITS ---
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 Measurements Intervals [place] Rate: 101 P: 62 [place]: 160 QRS: 249 QRSD: 187 T: 81 QT: 399 QTc: 518 Interpretive Statements ELECTRONIC VENTRICULAR PACEMAKER ABNORMAL RHYTHM ECG Compared to ECG 11/01/2022 17:35:14 No significant changes Electronically Signed On 05-21-2024 21:43:11 DIRECTOR WORKFORCE MANAGEMENT by Narciso Frederick M.D. [email or web address]
[2024-05-21 11:24] LABS: Alanine Aminotransferase 9 U/L (0-41); Alkaline Phosphatase 91 U/L (40-130); Anion Gap 11.7 (5-19); Aspartate Amino Transferase 14 U/L (0-40); Blood Urea Nitrogen 31 mg/dL (8-23); Calcium 10.2 mg/dL (8.5-10.5); Carbon Dioxide 38 mmol/L (22-29); Chloride 95 mmol/L (98-107); Creatinine Clr Calc Pharmacy 41.7662; Globulin 2.3 g/dL (1.3-4.6); Glomerular Filtration Rate 37.5 mL/min (90-130); Glucose 100 mg/dL (65-115); Osmolality Calculated 297 mOsm/kg (285-295); Potassium 4.7 mmol/L (3.5-5.1); Sodium 140 mmol/L (136-145); Total Bilirubin 0.6 mg/dL (0.15-1.2); Total Protein 6.3 g/dL (6.6-8.7)
--- NOTE | 2024-05-21 11:27 | W.ED.SOB ---
HPI - SOB/Dyspnea General: Chief Complaint: Shortness of Breath/Dyspnea Stated Complaint: SOB, COPD Time Seen by Provider: 05/21/24 11:00 History of Present Illness: HPI Narrative: 68-year-old male presents emergency room complaining of shortness of breath began overnight. He usually is on 3 L of oxygen stated reported overnight his oxygen saturations were low they kept titrating him up after several hours reported his sats dropped 94% he has had a nonproductive cough no chest pain. Some mild myalgias and headache no vomiting or diarrhea. Associated symptoms: Deny abdominal pain, chest pain or fever(s) Related Data Home Medications Medication Instructions Recorded Confirmed atorvastatin 80 mg tablet 80 mg PO DAILY 05/05/22 05/21/24 doxazosin 8 mg tablet 4 mg PO DAILY 05/05/22 05/21/24 gabapentin 300 mg capsule 300 mg PO TID 05/05/22 05/21/24 lamotrigine 200 mg tablet 200 mg PO DAILY 05/05/22 05/21/24 mirtazapine 15 mg tablet 15 mg PO BEDTIME 05/05/22 05/21/24 pantoprazole 40 mg tablet,delayed 40 mg PO DAILY 05/05/22 05/21/24 release quetiapine 25 mg tablet 25 - 72 mg PO BEDTIME 05/05/22 05/21/24 carvedilol 25 mg tablet 12.5 mg PO DAILY 07/13/22 05/21/24 lithium carbonate 300 mg capsule 300 mg PO DAILY 08/01/22 05/21/24 guaifenesin 600 mg tablet, 600 mg PO BID 05/21/24 05/21/24 extended release 12 hr (Mucinex) methocarbamol 500 mg tablet 500 mg PO Q12H PRN muscle spasms 05/21/24 05/21/24 Previous Rx's Medication Instructions Recorded aspirin 81 mg tablet,delayed 81 mg PO DAILY #90 tabs 05/05/22 release (Adult Low Dose Aspirin) albuterol sulfate 90 mcg/actuation 2 puff inhalation Q6H PRN 05/24/24 aerosol inhaler Shortness Of Breath 30 days #30 grams furosemide 40 mg tablet 40 mg PO DAILY 30 days #30 tabs 05/24/24 pantoprazole 40 mg tablet,delayed 40 mg PO DAILY 30 days #30 tabs 05/24/24 release sacubitril 24 mg-valsartan 26 mg 1 tab PO BID 30 days #60 tabs 05/24/24 tablet (Entresto) Allergies Allergy/AdvReac Type Severity Reaction Status Date / Time No Known Allergies Allergy Verified 05/15/23 15:22 Review of Systems Const: Denies: fever(s) or chills Card: Denies: chest pain Resp: Denies: dyspnea GI: Denies: abdominal pain : Denies: dysuria, urinary frequency or urinary urgency Musc: Denies: neck pain or back pain Skin/Breast: Denies: rash PFSH ED PFSH: Medical History Abdominal aortic aneurysm (AAA) without rupture Cardiac resynchronization therapy defibrillator ([employer]-D) in place Hyperlipidemia, unspecified Physical Exam Const: GENERAL APPEARANCE: cooperative ORIENTATION/CONSCIOUSNESS: Yes awake, Yes oriented to person, Yes oriented to place and Yes oriented to time HENMT: COMMON NORMALS: normocephalic, atraumatic and hearing grossly normal bilaterally HEAD & SCALP: normocephalic and atraumatic Resp: EFFORT & INSPECTION: Yes tachypneic AUSCULTATION: wheezes Cardio: COMMON NORMALS: regular rate, regular rhythm and No murmurs present (Cardio) RATE: regular rate RHYTHM: regular rhythm GI: COMMON NORMALS: Soft to palpation and No hepatosplenomegaly present AUSCULTATION: Yes normoactive bowel sounds PALPATION: Yes Soft to palpation, No Tenderness to palpation present (GI), No Guarding due to palpation present (GI) and Yes No hepatosplenomegaly present Extremity: COMMON NORMALS: normal to inspection, capillary refill normal, no clubbing, cyanosis or edema, no calf tenderness and no pedal edema Neuro: SENSORIUM/ORIENTATION: Yes oriented to person, Yes oriented to place and Yes oriented to time Skin: COMMON NORMALS: no rashes or lesions noted GENERAL SKIN EXAM: no rashes or lesions noted Course Vital Signs: Vital signs: Vital Signs Temperature 98.3 F 05/24/24 16:00 Pulse Rate 60 05/24/24 16:44 Respiratory Rate 15 05/24/24 16:00 Blood Pressure 123/81 05/24/24 16:44 Pulse Oximetry 95 05/24/24 16:44 Oxygen Delivery Me thod Nasal Cannula 05/24/24 16:00 Oxygen Flow Rate 3 05/24/24 13:22 MDM - SOB/Dyspnea Medical Decision Making Initial troponin 137 with elevated BNP at 5000 discussed with hospitalist will admit history of ischemic cardiomyopathy. Now requiring oxygen supplementation. His lactic acid is 4.4. Suspect this is more from his heart failure he has no leukocytosis. There is a questionable infiltrate at the left lower base we did start antibiotics. Given his ischemic cardiomyopathy and concern for heart failure did not bolus any fluids. Patient did not have significant hypotension. Discussed with hospitalist Dr. Rosa hollingsworth orders written Lab Data 05/24/24 05:00 05/24/24 05:00 Labs/Radiology: Radiology Impressions Chest X-Ray 05/21/24 11:01 IMPRESSION: 1. Focal hazy airspace opacity in the left lower lung. This may represent infiltrate, atelectasis, edema, and/or effusion. 2. Probable left pleural effusion. 3. Cardiomediastinal silhouette is midline and enlarged. Venous Duplex 05/22/24 10:32 IMPRESSION: No evidence of deep vein thrombosis in the lower extremities bilaterally. Laboratory Results WBC 10.87 10^3/uL (3.29-11.43) 05/21/24 11:01 RBC 3.43 10^6/uL (3.85-5.65) L 05/21/24 11:01 Hgb 11.10 g/dL (11.27-16.99) L 05/21/24 11:01 Hct 35.3 % (37-53) L 05/21/24 11:01 MCV 102.9 fl (82-101) H 05/21/24 11:01 MCH 32.4 pg (27-33) 05/21/24 11:01 MCHC 31.4 g/dL (30-55) 05/21/24 11:01 RDW 13.3 % (12.1-15.1) 05/21/24 11:01 Plt Count 147 10^3/cmm (157-399) L 05/21/24 11:01 MPV 10.3 fL (7.4-10.4) 05/21/24 11:01 Neut % (Auto) 79.8 % 05/21/24 11:01 Lymph % (Auto) 9.6 % 05/21/24 11:01 [place] % (Auto) 9.8 % 05/21/24 11:01 Eos % (Auto) 0.1 % 05/21/24 11:01 Baso % (Auto) 0.1 % 05/21/24 11:01 Neut # (Auto) 8.69 10^3/uL (1.8-7.7) H 05/21/24 11:01 Lymph # (Auto) 1.0 10^3/uL (0.8-4.8) 05/21/24 11:01 [place] # (Auto) 1.1 10^3/uL (0.2-0.9) H 05/21/24 11:01 Eos # (Auto) 0.0 10^3/uL (0.0-0.8) 05/21/24 11:01 Baso # (Auto) 0.0 10^3/uL (0.0-0.1) 05/21/24 11:01 Nucleated RBC % (auto) 0 % 05/21/24 11:01 Nucleated RBCs # 0.0 /100WBC 05/21/24 11:01 D-Dimer 2.25 ug/mLFEU (0-0.59) H 05/21/24 11:01 Specimen Type Arterial 05/21/24 12:15 Sample Site Radial, right 05/21/24 12:15 ABG pH 7.45 (7.35-7.45) 05/21/24 12:15 ABG pCO2 55.9 mmHg (35-45) H 05/21/24 12:15 ABG pO2 65.7 mmHg (80.0-100.0) L 05/21/24 12:15 ABG PO2/FiO2 Ratio 182 05/21/24 12:15 ABG HCO3 38.7 mmol/L (22-26) H 05/21/24 12:15 ABG O2 Saturation 95.9 05/21/24 12:15 ABG Base Excess 12.6 mmol/L (-2.0-2.0) H 05/21/24 12:15 Obed Test Pos 05/21/24 12:15 A-a O2 Gradient 16.2 mmHg (5-10) H 05/21/24 12:15 Hematocrit 36.0 % (42-52) L 05/21/24 12:15 Hgb O2 Saturation 93.4 % (95-100) L 05/21/24 12:15 Carboxyhemoglobin 1.7 %THgb (0.4-20.1) 05/21/24 12:15 Methemoglobin 1.0 % (0.4-1.5) 05/21/24 12:15 Total Hemoglobin 11.8 g/dL (14-18) L 05/21/24 12:15 Sodium 141.0 mmol/L (131-143) 05/21/24 12:15 Potassium 4.6 mmol/L (3.5-5.0) 05/21/24 12:15 Glucose 113.0 mg/dL (70-115) 05/21/24 12:15 Ionized Calcium 1.3 mmol/L (1.1-1.4) 05/21/24 12:15 O2 Delivery Device Nc 05/21/24 12:15 O2 Liters/Min 4.0 % 05/21/24 12:15 FiO2 36.0 % 05/21/24 12:15 Human Resources Team Member ID Ah 05/21/24 12:15 Sodium 140 mmol/L (136-145) 05/21/24 11:01 Potassium 4.7 mmol/L (3.5-5.1) 05/21/24 11:01 Chloride 95 mmol/L (98-107) L 05/21/24 11:01 Carbon Dioxide 38 mmol/L (22-29) H 05/21/24 11:01 Anion Gap 11.7 (5-19) 05/21/24 11:01 BUN 31 mg/dL (8-23) H 05/21/24 11:01 Creatinine 1.8 mg/dL (0.7-1.2) H 05/21/24 11:01 GFR Calculation 37.5 mL/min (90-130) L 05/21/24 11:01 Glucose 100 mg/dL (65-115) 05/21/24 11:01 Calculated Osmolality 297 mOsm/kg (285-295) H 05/21/24 11:01 Lactic Acid 2.8 mmol/L (0.5-2.2) H 05/21/24 13:35 Lactic Acid (Sepsis) 4.4 mmol/L (0.5-2.2) H* 05/21/24 16:02 Calcium 10.2 mg/dL (8.5-10.5) 05/21/24 11:01 Total Bilirubin 0.6 mg/dL (0.15-1.2) 05/21/24 11:01 AST 14 U/L (0-40) 05/21/24 11:01 ALT 9 U/L (0-41) 05/21/24 11:01 Alkaline Phosphatase 91 U/L (40-130) 05/21/24 11:01 Troponin T Baseline 137 ng/L (0-15) H* 05/21/24 11:01 NT-Pro-B Natriuret Pep 5023 pg/mL (0-125) H 05/21/24 11:01 Total Protein 6.3 g/dL (6.6-8.7) L 05/21/24 11:01 Albumin 4.0 g/dL (3.5-5.2) 05/21/24 11:01 Globulin 2.3 g/dL (1.3-4.6) 05/21/24 11:01 [place] 0.8 mmol/L (0.6-1.2) 05/21/24 11:01 Coronavirus (PCR) Negative (Negative) 05/21/24 13:30 Influenza A (PCR) Negative (Negative) 05/21/24 13:30 Influenza Type B (PCR) Negative (Negative) 05/21/24 13:30 RSV (PCR) Negative (Negative) 05/21/24 13:30 All radiology interpretation(s) finalized by discharge Discharge Plan Discharge Patient Disposition: Admitted As Inpatient Admit Provider: Nitza Lee Clinical Impression: Ischemic cardiomyopathy, Elevated troponin, Pneumonia Condition: Stable Discharge Diet: Usual diet Discharge Activity: Limit activity as instructed Coding Level of Care Code ED 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
[2024-05-21] MEDS: ipratropium-albuterol 3 mL Neb INHALATION ×3 (11:35→22:04)
--- NOTE | 2024-05-21 12:01 | PC.PHAR ---
Pt is [facility] today but spouse can verify pt medications.
[2024-05-21 12:30] LABS: ABG PCO2 55.9 mmHg (35-45); ABG PH Result 7.45 (7.35-7.45); Alveolar-Arterial Oxygen Gradi 16.2 mmHg (5-10); Base Excess ABG 12.6 mmol/L (-2.0-2.0); Blood Gas Allen Test Pos; Blood Gas Operator Identificat AH; Blood Gas Sample Site Radial, right; Blood Gas Sample Type Arterial; Carboxyhemoglobin 1.7 %THgb (0.4-20.1); HCO3 ABG 38.7 mmol/L (22-26); HGB O2 Sat 93.4 % (95-100); Ionized Calcium Level - ABG 1.3 mmol/L (1.1-1.4); Oxygen Device NC; Oxygen Saturation ABG 95.9; PO2 ABG 65.7 mmHg (80.0-100.0); PO2 FiO2 Ratio Arterial Blood 182; Potassium Level - ABG 4.6 mmol/L (3.5-5.0); Total Hemoglobin 11.8 g/dL (14-18)
[2024-05-21] MEDS: levofloxacin-dextrose 5 % 500 MG/100 ML PREMIX 100 MG IV (14:08)
[2024-05-21 14:09] LABS: Lactic Sepsis W/Reflex 2.8 mmol/L (0.5-2.2)
[2024-05-21 14:13] LABS: Covid PCR NEGATIVE (Negative); Influenza A NEGATIVE (Negative); Influenza B NEGATIVE (Negative); Respiratory Syncytial Virus Ce NEGATIVE (Negative)
[2024-05-21 15:35] LABS: Reflex Lactate Order REFLEX LACTIC ORDERD
--- NOTE | 2024-05-21 16:04 | PM.HP ---
Providers/Chief Complaint Admitting Physician: Nitza Lee MD Primary Care Provider: Chanell Lee MD Chief Complaint: SOB, COPD History of Present Illness Jim Carney is a 68 year old male with past medical history of CAD with NM in 2016, congestive heart failure defibrillator in place, presenting to the hospital today with worsening shortness of breath. Patient states he was feeling poorly for the last 2 to 3 days, just some generalized weakness, some relatives have been sick around him. Last night his noted that he was hypoxic on his usual 3 L/min chronic O2. Turned up the oxygen to 4 L/min. Today he felt very weak and came into the emergency room. Chest x-ray here is showing left lower lobe effusion versus atelectasis versus infiltrate. He denies any cough, expectoration. Denies any chest pain. He has lower extremity edema which she states has been increasing recently. No fever. Review of Systems General: Reports: 10 or more systems reviewed and unremarkable except in HPI and below Const: Denies: fever(s), chills or body aches Eyes: Denies: change in vision, blurry vision or photophobia ENMT: Reports: hoarseness; Denies: throat pain, enlarged tonsils, odynophagia or nasal congestion Card: Denies: chest pain, palpitations, irregular heart rhythm, edema, swelling of feet/ankles, lightheadedness, pre-syncope, dyspnea on exertion or orthopnea Resp: Denies: dyspnea, productive cough, non-productive cough, wheezing, stridor, pain on inspiration, change in phlegm color, hemoptysis or chest congestion GI: Denies: abdominal pain, nausea, vomiting, hematemesis, coffee ground emesis, dysphagia, heartburn, diarrhea, constipation, GI cramping, change in stool character, hematochezia or melena : Denies: flank pain, dysuria, urinary frequency, urinary urgency, urinary hesitancy or hematuria Musc: Denies: neck pain, back pain, extremity pain, joint swelling, joint warmth or deformity Neuro: Denies: headache(s), numbness in extremities, weakness in extremities, sensory changes, difficulty walking, frequent falls, dizziness, vertigo, behavioral changes, Slurred speech present or seizure-like activity Psych: Denies: anxiety, depression, suicidal ideation or homicidal ideation Endo: Denies: polyuria, polydipsia, tired all the time, cold intolerance or hot flashes Sukhi/Lymph: Denies: easy bruising or easy bleeding Medications/Allergies Home Medications Medication Instructions Recorded Confirmed Last Taken Type aspirin 81 mg tablet,delayed 81 mg PO DAILY #90 tabs 05/05/22 05/21/24 05/20/24 Rx release (Adult Low Dose Aspirin) atorvastatin 80 mg tablet 80 mg PO DAILY 05/05/22 05/21/24 05/20/24 History doxazosin 8 mg tablet 4 mg PO DAILY 05/05/22 05/21/24 05/20/24 History gabapentin 300 mg capsule 300 mg PO TID 05/05/22 05/21/24 05/20/24 History lamotrigine 200 mg tablet 200 mg PO DAILY 05/05/22 05/21/24 05/20/24 History mirtazapine 15 mg tablet 15 mg PO BEDTIME 05/05/22 05/21/24 05/20/24 History pantoprazole 40 mg tablet,delayed 40 mg PO DAILY 05/05/22 05/21/24 05/20/24 History release quetiapine 25 mg tablet 25 - 72 mg PO BEDTIME 05/05/22 05/21/24 05/20/24 History carvedilol 25 mg tablet 12.5 mg PO DAILY 07/13/22 05/21/24 05/20/24 History lithium carbonate 300 mg capsule 300 mg PO DAILY 08/01/22 05/21/24 05/20/24 History albuterol sulfate 90 mcg/actuation 2 puff inhalation Q6H PRN 05/21/24 05/21/24 Unknown History aerosol inhaler Shortness Of Breath furosemide 20 mg tablet 20 mg PO DAILY 05/21/24 05/21/24 05/21/24 History guaifenesin 600 mg tablet, 600 mg PO BID 05/21/24 05/21/24 05/21/24 History extended release 12 hr (Mucinex) lisinopril 10 mg tablet 5 mg PO DAILY 05/21/24 05/21/24 05/20/24 History methocarbamol 500 mg tablet 500 mg PO Q12H PRN muscle spasms 05/21/24 05/21/24 Unknown History Allergies Allergy/AdvReac Type Severity Reaction Status Date / Time No Known Allergies Allergy Verified 05/15/23 15:22 PFSH Acute PFSH: Medical History Abdominal aortic aneurysm (AAA) without rupture Cardiac resynchronization therapy defibrillator ([employer]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 Hyperlipidemia, unspecified Vitals/I&O/Wt Last Vital Signs Temp 99.4 F 05/21/24 10:49 Pulse 86 05/21/24 15:00 Resp 20 H 05/21/24 14:04 BP 141/94 05/21/24 13:30 Pulse Ox 94 05/21/24 15:00 O2 Del Method Nasal Cannula 05/21/24 15:00 O2 Flow Rate 4 05/21/24 15:00 05/21/24 05/21/24 05/21/24 06:59 14:59 22:59 Intake Total 0 / 0 Balance 0 / 0 Weight last 48 hrs Weight 90.718 kg Physical Exam Narrative: General: No acute distress, AO x3 HEENT: PERRLA, pupils bilaterally equal and reactive, pallors not present Chest: Normal vesicular breath sounds, no added sounds, equal good air entry bilaterally CVS: S1-S2 regular, no murmurs, no tachycardia, no gallops, no rubs Abdomen: Soft, nontender, no organomegaly, bowel sounds present Neuro: No focal deficits, no facial deformity, AO x3, power 5/5 in all limbs Extremities: LE pitting edema 3+ Data 05/21/24 11:01 05/21/24 11:01 Micro: Microbiology 05/21/24 13:39 Blood Culture - Preliminary Blood SPECIMEN COLLECTED 05/21/24 13:35 Blood Culture - Preliminary Blood SPECIMEN COLLECTED A&P Assessment and plan (1) Acute on chronic hypoxic respiratory failure: Acute on chronic hypoxic respiratory failure likely related to CHF exacerbation and possible pneumonia. screen ing d dimer (2) Acute on chronic systolic CHF (congestive heart failure), NYHA class 4: Acute on chronic systolic CHF exacerbation patient has bilateral lower extremity 3+ pitting edema. Typically takes Lasix every day. Last echocardiogram from September 2022 with diffuse hypokinesia of the left ventricle, ejection fraction of 43%. Moderately dilated LV cavity. Start Lasix 40 mg IV every 12 hours Cunningham catheter Closely monitor I&O and kidney function with diuresis. check trop and EKG series (3) Ischemic cardiomyopathy: (4) Pneumonia: LLL infiltrate, possible pneumonia versus atelectasis versus pleural effusion Start ceftriaxone 1 g IV every 24 hours and azithromycin 500 mg p.o. daily for 3 days. Respiratory panel negative for COVID influenza RSV. Plan h/o COPD: DuoNeb every 6 hour and budesonide 0.5 mg twice daily Attestations Medical Necessity Statement*: Reason 2 midnight stay is anticipated Coding Level of Care Code Acute Code for [facility] Diagnoses Acute on chronic hypoxic respiratory failure J96.21 Acute on chronic systolic CHF (congestive heart failure), NYHA class 4 I50.23 Ischemic cardiomyopathy I25.5 Pneumonia J18.9
--- NOTE | 2024-05-21 16:07 | ECG_ITS ---
[facility] Test Date: 2024-05-21 Pat Name: Jim Carney Department: Room: 276 Gender: Male [place]: : 1955 Requested By: Nitza Lee Order Number: [id number] Estelita MD: Narciso Frederick M.D. Measurements Intervals [place] Rate: 103 P: 66 ND: 139 QRS: 249 QRSD: 191 T: 84 QT: 427 QTc: 560 Interpretive Statements ELECTRONIC VENTRICULAR PACEMAKER ABNORMAL RHYTHM ECG Compared to ECG 05/21/2024 11:19:38 No significant changes Electronically Signed On 05-21-2024 21:43:15 CRUSHER by Narciso Frederick M.D. [email or web address]
[2024-05-21 16:26] LABS: Lactic Acid level (Lactate) 4.4 mmol/L (0.5-2.2)
--- NOTE | 2024-05-21 16:29 | PC.NURSE ---
report called to [place] [facility] at 1628.
[2024-05-21 16:39] LABS: D Dimer 2.25 ug/mLFEU (0-0.59)
[2024-05-21 17:28] LABS: Troponin(5th) Baseline 137 ng/L (0-15)
[2024-05-21 17:36] LABS: NT Pro B Type Natriuretic Pept 5023 pg/mL (0-125)
[2024-05-21] MEDS: FUROsemide 10 mg/mL SDV 2mL 40 MG IVP (17:40)
[2024-05-21] MEDS: heparin 5,000 unit/mL INJ 1 mL 5000 UNIT SUBCUT (17:48)
[2024-05-21] MEDS: cefTRIAXone 1,000 mg SDV 1000 MG IVP (17:48)
[2024-05-21 17:55] LABS: Troponin 5 6HR 99.77 ng/L (0-15); Troponin 5 6HR Delta -37.23 ng/L (0-12)
[2024-05-21 19:21] LABS: Lithium 0.8 mmol/L (0.6-1.2)
[2024-05-21] MEDS: gabapentin 300 mg Capsule PO (20:35)
[2024-05-21] MEDS: mirtazapine 15 mg Tablet PO (20:35)
[2024-05-21] MEDS: quetiapine 25 mg Tablet PO (20:35)
--- NOTE | 2024-05-21 22:02 | ECG_ITS ---
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 Measurements Intervals [place] Rate: 99 P: 80 CT: 112 QRS: -85 QRSD: 190 T: 119 QT: 430 QTc: 554 Interpretive Statements ELECTRONIC VENTRICULAR PACEMAKER ABNORMAL RHYTHM ECG Compared to ECG 05/21/2024 16:07:27 No significant changes Electronically Signed On 05-21-2024 22:09:26 R D INTERN by Narciso Frederick M.D. [email or web address]
[2024-05-21] MEDS: budesonide 0.5 mg/2 mL Neb INHALATION (22:04)
[2024-05-22] VITALS (12 sets, daily range): BP systolic 131–145; BP diastolic 83–100; PULSE 86–107; RESP 17–22; TEMP 36.8–37.6; O2SAT 93–97
[2024-05-22] MEDS: ipratropium-albuterol 3 mL Neb INHALATION ×3 (03:17→13:35)
[2024-05-22] MEDS: FUROsemide 10 mg/mL SDV 2mL 40 MG IVP ×2 (04:44→16:07)
[2024-05-22] MEDS: heparin 5,000 unit/mL INJ 1 mL 5000 UNIT SUBCUT (04:44)
[2024-05-22 05:41] LABS: Basophils % 0.1 %; Hematocrit 38.4 % (37-53); Lymphocytes # 0.5 10^3/uL (0.8-4.8); Lymphocytes % 5.4 %; Mean Corpuscular HGB Conc 30.5 g/dL (30-55); Mean Corpuscular Hemoglobin 31.4 pg (27-33); Mean Corpuscular Volume 102.9 fl (82-101); Mean Platelet Volume 10.7 fL (7.4-10.4); Monocytes # 0.4 10^3/uL (0.2-0.9); Monocytes % 4.1 %; Neutrophils # 7.92 10^3/uL (1.8-7.7); Neutrophils % 89.6 %; Nucleated Red Blood Cells % 0 %; Platelet Count 154 10^3/cmm (157-399); Red Blood Count 3.73 10^6/uL (3.85-5.65); Red Cell Distribution Width 13.3 % (12.1-15.1); White Blood Count 8.84 10^3/uL (3.29-11.43)
[2024-05-22 06:07] LABS: Alanine Aminotransferase 10 U/L (0-41); Albumin Level 4.1 g/dL (3.5-5.2); Alkaline Phosphatase 94 U/L (40-130); Anion Gap 12.4 (5-19); Aspartate Amino Transferase 16 U/L (0-40); Blood Urea Nitrogen 29 mg/dL (8-23); Calcium 10.4 mg/dL (8.5-10.5); Carbon Dioxide 38 mmol/L (22-29); Chloride 95 mmol/L (98-107); Creatinine Clr Calc Pharmacy 61.7924; Globulin 2.3 g/dL (1.3-4.6); Glomerular Filtration Rate 54.6 mL/min (90-130); Glucose 203 mg/dL (65-115); Osmolality Calculated 304 mOsm/kg (285-295); Potassium 4.4 mmol/L (3.5-5.1); Sodium 141 mmol/L (136-145); Total Bilirubin 0.5 mg/dL (0.15-1.2); Total Protein 6.4 g/dL (6.6-8.7)
[2024-05-22] MEDS: budesonide 0.5 mg/2 mL Neb INHALATION (08:14)
[2024-05-22] MEDS: carvedilol 25 mg Tablet 12.5 MG PO (08:44)
[2024-05-22] MEDS: atorvastatin 40 mg Tablet 80 MG PO (08:44)
[2024-05-22] MEDS: aspirin 81 mg EC Tablet PO (08:45)
[2024-05-22] MEDS: lamoTRIgine 100 mg Tablet 200 MG PO (08:45)
[2024-05-22] MEDS: gabapentin 300 mg Capsule PO ×3 (08:45→20:26)
[2024-05-22] MEDS: lithium carbonate 300 mg Capsule PO (08:45)
[2024-05-22] MEDS: pantoprazole DR 40 mg Tablet PO (08:45)
--- NOTE | 2024-05-22 09:37 | PC.CHAP ---
Pastoral Care Encounter/Spiritual Assessment Type of Contact [] Declined elevators inspector visit [] Patient/Family/Request visit [] Outpatient visit [] Follow-up visit [] Physician referral [] Code/Alert [x] Routine visit [] Staff referral [] Actively dying [] Patient sleeping [] Family support [] [] Out of room [] Palliative care [] [] Receiving care in room [] Pre-surgical visit [] Trauma [] Long length of stay [] ICU visit [] Other: Relational/Emotional Strength [x] Patient feels connected with others/family/visitors/staff [] Distress [] Loneliness/isolation [] Abandonment Spirituality of Patient [] Person of Xiomy [] Attends Buddhism of their Xiomy [] Believes in Prayer [] Reads Bible or Latter-Day materials [x] There are Spiritual issues to be addressed Adaptive Physical Education Teacher Interventions [] Prayer [] Active listening [x] Non-anxious presence [x] Spiritual/emotional support [] Crisis/trauma care [] Spiritual counseling [] Bereavement support [] Provided bereavement packet [] Provided Bible/devotional materials [] Provided toy/stuffed animal, coloring book to patient or family member [] Provided Communion [] Anointing/Viola [] Salvation [x] Completed spiritual assessment [] Other: Impact on Illness or Injury [] Angry [] Fearful [] Anxious [] Often cries [] Exhaustion [] Unable to work [] Unable to attend restorationism [] Unable to walk/stand [] Unable to read [] Unable to drive [] Unable to eat/drink [] Unable to sleep [] Unable to be with family [] Patient intubated [] Other: Summary Time spent with patient 5 min
--- NOTE | 2024-05-22 10:32 | USCV_ITS ---
Jim Carney Age: 68 Gender: M : 1955 Exam Date: 05/22/2024 16:40 Ordering Phys: Nitza Lee MD Technologist: Hemanth Colón [place]am Location[place] [facility] [place]ication: NSTEMI BP: 145 / 83 HR: 84 Rhythm: Sinus Technical Quality: Adequate MEASUREMENTS (Male / Female) Normal Values 2D ECHO LVOT Diameter 2.0 cm LV Ejection Fraction MOD 4C 25.0 % LV Ejection Fraction MOD 2C 22.1 % LV Ejection Fraction 2C AL 21.3 % LA Diameter 4.9 cm RA Systolic Volume 4C AL 88.9 ml RA Systolic Volume 4C MOD 86.3 ml LA Sys Volume AL 77.3 cm cubed LA Sys Volume Index AL 34.0 cm cubed/m squared Aorta at Sinotubular Diameter 2.2 cm IVC Diameter 1.9 cm M-MODE LA Ao Ratio MM 1.3 AV Cusp Separation MM 1.3 cm DOPPLER AV Peak Velocity 146.0 cm/s LVOT Peak Velocity 70.0 cm/s AV Area Cont Eq vti 1.2 cm squared AV Area Cont Eq pk 1.5 cm squared MV Peak Velocity 111.0 cm/s TV Peak Velocity 203.0 cm/s TR Peak Velocity 203.0 cm/s TR Peak Gradient 16.5 mmHg TR Mean Velocity 164.0 cm/s TR Mean Gradient 11.3 mmHg TR Velocity Time Integral 71.6 cm FINDINGS Left Ventricle Technically limited quality echocardiogram because of very poor ultrasonic windows. Grossly LV systolic function appears severely reduced. Right Ventricle Grossly normal Right Atrium Normal in size Left Atrium Normal in size Mitral Valve Grossly normal. Mild mitral regurgitation Aortic Valve Grossly normal. No significant stenosis Tricuspid Valve Insufficient TR jet to calculate RVSP Pulmonic Valve Not well visualized Pericardium Normal Aorta Not well visualized IVC Grossly normal CONCLUSIONS Technically limited quality echocardiogram because of poor ultrasonic windows Grossly LV systolic function is severely reduced Mild mitral regurgitation Accurate comparison with prior echocardiogram not possible because of poor ultrasonic windows. Terry Jean MD (Electronically Signed) Final Date: 22 May 2024 19:13 S
--- NOTE | 2024-05-22 10:32 | USR_ITS ---
PROCEDURE INFORMATION: Exam: US Duplex Lower Extremity Veins, Bilateral Exam date and time: 05/22/2024 4:11 PM Age: 68 years old Clinical indication: Screening exam; Assess for dvt; Additional info: Assess for dvt, elevated d dimer, le edema TECHNIQUE: Imaging protocol: Real-time duplex ultrasound of the bilateral extremities with 2-D estes scale, color Doppler flow and spectral waveform analysis including responses to compression and other maneuvers (when performed) with image documentation. Complete exam focused on the lower extremity veins. COMPARISON: l spine FINDINGS: Right deep veins: The right common femoral, femoral, proximal profunda femoral, popliteal, peroneal and posterior tibial veins are patent without thrombus. Normal Doppler waveforms. Normal compressibility and/or augmentation response. Left deep veins: The left common femoral, femoral, proximal profunda femoral, popliteal, peroneal and posterior tibial veins are patent without thrombus. Normal Doppler waveforms. Normal compressibility and/or augmentation response. Superficial veins: Greater saphenous veins at the saphenofemoral junctions are patent bilaterally without thrombus. Soft tissues: Unremarkable. US/CV venous duplex [facility] [id number] IMPRESSION: No evidence of deep vein thrombosis in the lower extremities bilaterally.
[2024-05-22 11:40] LABS: Procalcitonin 0.09 ng/mL (0-0.5)
[2024-05-22] MEDS: enoxaparin 100 mg/mL Syringe SUBCUT (16:06)
[2024-05-22] MEDS: cefTRIAXone 1,000 mg SDV 1000 MG IVP (16:06)
--- NOTE | 2024-05-22 16:19 | P.PN_ITS ---
Subjective 2 Subjective: urine output not charted, patient urinating in bedside commode. states he feels better. reports that he has brendan out of lasix for the past 5 days and has had a 12 pound weight gain Medications: Reviewed: Yes Vitals/I&O/Wt Last Vital Signs Temp 99.7 F H 05/22/24 11:03 Pulse 88 05/22/24 14:00 Resp 18 05/22/24 13:35 BP 142/91 05/22/24 11:03 Pulse Ox 93 05/22/24 13:35 O2 Del Method Nasal Cannula 05/22/24 13:35 O2 Flow Rate 3 05/22/24 13:35 Weight last 48 hrs Weight 103.963 kg Weight 90.718 kg Weight 90.718 kg Physical Exam 2 Narrative: General: No acute distress, AO x3 HEENT: PERRLA, pupils bilaterally equal and reactive, pallors not present Chest: Normal vesicular breath sounds, no added sounds, equal good air entry bilaterally CVS: S1-S2 regular, no murmurs, no tachycardia, no gallops, no rubs Abdomen: Soft, nontender, no organomegaly, bowel sounds present Neuro: No focal deficits, no facial deformity, AO x3, power 5/5 in all limbs Extremities: LE pitting edema 3+ Data 05/22/24 05:14 05/22/24 05:14 Micro: Microbiology 05/21/24 13:39 Blood Culture - Preliminary Blood NEGATIVE TO DATE 05/21/24 13:35 Blood Culture - Preliminary Blood NEGATIVE TO DATE A&P Assessment and plan (1) Acute on chronic hypoxic respiratory failure: Acute on chronic hypoxic respiratory failure likely related to CHF exacerbation and possible pneumonia. screen ing d dimer (2) Acute on chronic systolic CHF (congestive heart failure), NYHA class 4: Acute on chronic systolic CHF exacerbation patient has bilateral lower extremity 3+ pitting edema. Typically takes Lasix every day. Last echocardiogram from September 2022 with diffuse hypokinesia of the left ventricle, ejection fraction of 43%. Moderately dilated LV cavity. Start Lasix 40 mg IV every 12 hours Cunningham catheter Closely monitor I&O and kidney function with diuresis. check trop and EKG series (3) Ischemic cardiomyopathy: (4) Pneumonia: LLL infiltrate, possible pneumonia versus atelectasis versus pleural effusion Start ceftriaxone 1 g IV every 24 hours and azithromycin 500 mg p.o. daily for 3 days. Respiratory panel negative for COVID influenza RSV. Plan h/o COPD: DuoNeb every 6 hour and budesonide 0.5 mg twice daily 05/22/24: elevated bnp, d dimer and troponin. trop 103>> 99, negative delta, paced rhythm on ekg. may be related to chf vs type 2 mi. echo ordered to assess for new rwmas, ef. continue lasix 40mg iv q12h. monitor I/o and renal fxn closely. elevated d dimer , cannot get cta right now due to sujit. cr better at 1.3, if improves more, then cta chest to assess for PE. in the interim start lovenox 1mg/kg sc bid for possible nstemi, possible pe. LE doppler to assess for dvt Attestations 2 Medical Necessity Statement*: chf exacerbation, need for iv diuresis, echo Coding Level of Care Code Acute Code for Chg Fwd Diagnoses Acute on chronic hypoxic respiratory failure J96.21 Acute on chronic systolic CHF (congestive heart failure), NYHA class 4 I50.23 Ischemic cardiomyopathy I25.5 Pneumonia J18.9
[2024-05-22] MEDS: quetiapine 25 mg Tablet PO (20:26)
[2024-05-22] MEDS: mirtazapine 15 mg Tablet PO (20:26)
[2024-05-23] VITALS (12 sets, daily range): BP systolic 115–142; BP diastolic 67–100; PULSE 60–89; RESP 16–20; TEMP 36.6–36.9; O2SAT 94–98
[2024-05-23] MEDS: hyDRALAzine 20 mg/mL INJ 1 mL 5 MG IVP (01:21)
[2024-05-23] MEDS: ipratropium-albuterol 3 mL Neb INHALATION ×4 (02:26→20:36)
[2024-05-23] MEDS: FUROsemide 10 mg/mL SDV 2mL 40 MG IVP ×2 (04:40→16:57)
[2024-05-23] MEDS: enoxaparin 100 mg/mL Syringe SUBCUT ×2 (04:41→16:56)
[2024-05-23] MEDS: budesonide 0.5 mg/2 mL Neb INHALATION ×2 (08:03→20:36)
[2024-05-23] MEDS: aspirin 81 mg EC Tablet PO (08:31)
[2024-05-23] MEDS: lithium carbonate 300 mg Capsule PO (08:31)
[2024-05-23] MEDS: atorvastatin 40 mg Tablet 80 MG PO (08:31)
[2024-05-23] MEDS: pantoprazole DR 40 mg Tablet PO (08:32)
[2024-05-23] MEDS: carvedilol 25 mg Tablet 12.5 MG PO (08:32)
[2024-05-23] MEDS: lamoTRIgine 100 mg Tablet 200 MG PO (08:32)
[2024-05-23] MEDS: gabapentin 300 mg Capsule PO ×3 (08:33→20:48)
[2024-05-23 12:27] LABS: Basophils % 0.1 %; Eosinophils % 0.2 %; Hematocrit 43.3 % (37-53); Lymphocytes # 1.7 10^3/uL (0.8-4.8); Lymphocytes % 12.1 %; Mean Corpuscular HGB Conc 30.3 g/dL (30-55); Mean Corpuscular Hemoglobin 32.1 pg (27-33); Mean Corpuscular Volume 106.1 fl (82-101); Mean Platelet Volume 10.7 fL (7.4-10.4); Monocytes # 1.3 10^3/uL (0.2-0.9); Monocytes % 9.3 %; Neutrophils # 10.65 10^3/uL (1.8-7.7); Neutrophils % 77.9 %; Nucleated Red Blood Cells % 0 %; Platelet Count 154 10^3/cmm (157-399); Red Blood Count 4.08 10^6/uL (3.85-5.65); Red Cell Distribution Width 13.4 % (12.1-15.1); White Blood Count 13.69 10^3/uL (3.29-11.43)
[2024-05-23 13:45] LABS: Alanine Aminotransferase 17 U/L (0-41); Alkaline Phosphatase 94 U/L (40-130); Aspartate Amino Transferase 22 U/L (0-40); Blood Urea Nitrogen 25 mg/dL (8-23); Calcium 10.7 mg/dL (8.5-10.5); Chloride 92 mmol/L (98-107); Creatinine Clr Calc Pharmacy 66.6919; Globulin 2.4 g/dL (1.3-4.6); Glomerular Filtration Rate 59.9 mL/min (90-130); Glucose 169 mg/dL (65-115); Osmolality Calculated 296 mOsm/kg (285-295); Sodium 139 mmol/L (136-145); Total Bilirubin 0.6 mg/dL (0.15-1.2); Total Protein 6.4 g/dL (6.6-8.7)
[2024-05-23 13:49] LABS: Anion Gap 9.7 (5-19); Carbon Dioxide 41 mmol/L (22-29); Potassium 3.7 mmol/L (3.5-5.1)
[2024-05-23] MEDS: cefTRIAXone 1,000 mg SDV 1000 MG IVP (16:24)
--- NOTE | 2024-05-23 17:43 | P.PN_ITS ---
Subjective 2 Subjective: Patient states his breathing is much better today. Lower extremity edema is additionally improving. He is net -3.7 L last 24 hours. Medications: Reviewed: Yes Vitals/I&O/Wt Last Vital Signs Temp 98.1 F 05/23/24 15:39 Pulse 61 05/23/24 15:39 Resp 17 05/23/24 15:39 BP 115/70 05/23/24 15:39 Pulse Ox 97 05/23/24 15:39 O2 Del Method Nasal Cannula 05/23/24 15:39 O2 Flow Rate 3 05/23/24 15:39 05/23/24 05/23/24 05/23/24 06:59 14:59 22:59 Intake Total 480 / 700 Output Total 300 / 2400 1999 Balance 180 / -1700 -1999 Weight last 48 hrs Weight 103.192 kg Weight 103.963 kg Physical Exam 2 Narrative: General: No acute distress, AO x3 HEENT: PERRLA, pupils bilaterally equal and reactive, pallors not present Chest: Normal vesicular breath sounds, no added sounds, equal good air entry bilaterally CVS: S1-S2 regular, no murmurs, no tachycardia, no gallops, no rubs Abdomen: Soft, nontender, no organomegaly, bowel sounds present Neuro: No focal deficits, no facial deformity, AO x3, power 5/5 in all limbs Extremities: LE pitting edema improved compared to yesterday's exam. Data 05/23/24 12:15 05/23/24 13:21 Micro: Microbiology 05/21/24 13:39 Blood Culture - Preliminary Blood NEGATIVE TO DATE 05/21/24 13:35 Blood Culture - Preliminary Blood NEGATIVE TO DATE A&P Assessment and plan (1) Acute on chronic hypoxic respiratory failure: Acute on chronic hypoxic respiratory failure likely related to CHF exacerbation and possible pneumonia. screen ing d dimer (2) Acute on chronic systolic CHF (congestive heart failure), NYHA class 4: Acute on chronic systolic CHF exacerbation patient has bilateral lower extremity 3+ pitting edema. Typically takes Lasix every day. Last echocardiogram from September 2022 with diffuse hypokinesia of the left ventricle, ejection fraction of 43%. Moderately dilated LV cavity. Start Lasix 40 mg IV every 12 hours Cunningham catheter Closely monitor I&O and kidney function with diuresis. check trop and EKG series (3) Ischemic cardiomyopathy: (4) Pneumonia: LLL infiltrate, possible pneumonia versus atelectasis versus pleural effusion Start ceftriaxone 1 g IV every 24 hours and azithromycin 500 mg p.o. daily for 3 days. Respiratory panel negative for COVID influenza RSV. Plan h/o COPD: DuoNeb every 6 hour and budesonide 0.5 mg twice daily 05/22/24: elevated bnp, d dimer and troponin. trop 103>> 99, negative delta, paced rhythm on ekg. may be related to chf vs type 2 mi. echo ordered to assess for new rwmas, ef. continue lasix 40mg iv q12h. monitor I/o and renal fxn closely. elevated d dimer , cannot get cta right now due to rocky. cr better at 1.3, if improves more, then cta chest to assess for PE. in the interim start lovenox 1mg/kg sc bid for possible nstemi, possible pe. LE doppler to assess for dvt 05/23/2024 Patient is feeling significantly better today. He is net -3.7 L since yesterday. Lower extremity swelling is improving. Echocardiogram with poor ultrasonic windows therefore limited quality. Grossly LV systolic function was noted to be severely reduced. Comparison with prior echocardiogram was not possible due to poor windows. Previously from September 2022 EF was at 43%. Per patient and his the 43% was an improvement over 15% previously. Will plan to do stress test tomorrow. Renal function is improving, creatinine down down to 1.2. Robust urine output. Likely cardiorenal syndrome that led to ROCKY upon admission.change lasix from 40mg iv q12h to po lasix 40mg BID. Attestations 2 Medical Necessity Statement*: planned stress test Coding Level of Care Code Acute Code for Chg Fwd High MDM includes number and complexity of problems actively addressed during encounter, amount and/or complexity of data reviewed/ordered and described risk of complication, morbidity or mortality of management as documented Diagnoses Acute on chronic hypoxic respiratory failure J96.21 Acute on chronic systolic CHF (congestive heart failure), NYHA class 4 I50.23 Ischemic cardiomyopathy I25.5 Pneumonia J18.9
[2024-05-23] MEDS: mirtazapine 15 mg Tablet PO (20:48)
[2024-05-23] MEDS: quetiapine 25 mg Tablet PO (20:48)
[2024-05-24] VITALS (7 sets, daily range): BP systolic 123–149; BP diastolic 67–92; PULSE 60–82; RESP 15–18; TEMP 36.7–36.9; O2SAT 94–96
[2024-05-24] MEDS: enoxaparin 100 mg/mL Syringe SUBCUT (04:33)
[2024-05-24 05:28] LABS: Basophils % 0.3 %; Eosinophils # 0.1 10^3/uL (0.0-0.8); Eosinophils % 0.6 %; Hematocrit 42.9 % (37-53); Lymphocytes # 2.2 10^3/uL (0.8-4.8); Lymphocytes % 17.7 %; Mean Corpuscular Hemoglobin 31.6 pg (27-33); Mean Corpuscular Volume 101.9 fl (82-101); Mean Platelet Volume 10.4 fL (7.4-10.4); Monocytes # 1.1 10^3/uL (0.2-0.9); Monocytes % 9.1 %; Neutrophils # 8.73 10^3/uL (1.8-7.7); Neutrophils % 71.8 %; Nucleated Red Blood Cells % 0 %; Platelet Count 191 10^3/cmm (157-399); Red Blood Count 4.21 10^6/uL (3.85-5.65); Red Cell Distribution Width 13.2 % (12.1-15.1); White Blood Count 12.15 10^3/uL (3.29-11.43)
[2024-05-24 05:55] LABS: Alanine Aminotransferase 17 U/L (0-41); Alkaline Phosphatase 105 U/L (40-130); Aspartate Amino Transferase 18 U/L (0-40); Blood Urea Nitrogen 24 mg/dL (8-23); Calcium 10.6 mg/dL (8.5-10.5); Carbon Dioxide 38 mmol/L (22-29); Chloride 93 mmol/L (98-107); Creatinine Clr Calc Pharmacy 72.7547; Globulin 2.5 g/dL (1.3-4.6); Glomerular Filtration Rate 66.2 mL/min (90-130); Glucose 163 mg/dL (65-115); Osmolality Calculated 298 mOsm/kg (285-295); Sodium 140 mmol/L (136-145); Total Bilirubin 0.5 mg/dL (0.15-1.2); Total Protein 6.5 g/dL (6.6-8.7)
[2024-05-24 05:58] LABS: Anion Gap 12.4 (5-19); Potassium 3.4 mmol/L (3.5-5.1)
[2024-05-24] MEDS: regadenoson 0.4 Mg/5 ml Syringe IVP (07:30)
[2024-05-24] MEDS: atorvastatin 40 mg Tablet 80 MG PO (08:52)
[2024-05-24] MEDS: pantoprazole DR 40 mg Tablet PO (08:52)
[2024-05-24] MEDS: carvedilol 25 mg Tablet 12.5 MG PO (08:52)
[2024-05-24] MEDS: lithium carbonate 300 mg Capsule PO (08:53)
[2024-05-24] MEDS: gabapentin 300 mg Capsule PO ×2 (08:53→14:56)
[2024-05-24] MEDS: FUROsemide 40 mg Tablet PO (08:53)
[2024-05-24] MEDS: aspirin 81 mg EC Tablet PO (08:53)
[2024-05-24] MEDS: lamoTRIgine 100 mg Tablet 200 MG PO (08:53)
[2024-05-24] MEDS: azithromycin 250 mg Tablet 500 MG PO (09:14)
--- NOTE | 2024-05-24 09:14 | PC.SOCIAL ---
IMM Update Pg. 2 of IMM updated and reviewed with patient, who verbalized understanding. Copy provided.
[2024-05-24] MEDS: ipratropium-albuterol 3 mL Neb INHALATION (13:22)
--- NOTE | 2024-05-24 14:27 | PM.DCS ---
Discharge Providers Date of Admission: 05/21/24 16:02 Date of Discharge: May 24, 2024 Attending Provider at Admission: Nitza Lee MD Attending Provider at Discharge: Nitza Lee MD Primary Care Provider: Chanell Lee MD Diagnoses at Discharge Discharge Diagnosis (1) Acute on chronic hypoxic respiratory failure: Status: Acute (2) Acute on chronic systolic CHF (congestive heart failure), NYHA class 4: Status: Acute (3) Ischemic cardiomyopathy: Status: Acute (4) Pneumonia: Status: Acute Reason for Visit Reason for Visit: SOB, COPD Hospital Course Hospital Course Jim Carney is a 68 year old male with past medical history of CAD with MA in 2016, congestive heart failure last known EF 40%, defibrillator in place, presenting to the hospital with worsening shortness of breath. He had been out of his lasix for the past 4-5 days, had gained 12 pounds and developed LE edema. Typically patient wears 3 L/min supplemental O2, however needed to go up to 4 L/min. He had reported some weight URI type symptoms and generalized weakness additionally. He underwent chest x-ray which showed focal hazy opacities in the left lower lung manufacturer representative of edema versus atelectasis. Per personal interpretation patient had hazy bilateral opacities most compatible with pulmonary edema. Additionally had lower extremity swelling and elevated BNP are compatible with acute on chronic systolic CHF exacerbation. An echocardiogram was attempted to be obtained however had poor ultrasonic windows therefore limited rate. Patient had elevated troponins, baseline at 137, trending down to 99 with a negative delta. He had no active chest pain. EKG was with a paced rhythm. He underwent a stress test which showed fixed perfusion defects in apical anterior inferior and apical lateral ortiz consistent with prior infarct in all 3 coronary artery distributions. No evidence of significant current ischemia. Patient has a history of ischemic cardiomyopathy with his EF being 15% several years ago. Last year it had improved to 40%, however based on the annual stress test his EF is estimated to be 17%. Heart failure medications were optimized. Carvedilol was continued. Lisinopril was discontinued. 48 hours after discontinuation of lisinopril patient has been instructed to start Entresto 1 tab p.o. twice daily with aim to uptitrate as outpatient. Patient and are instructed to keep a blood pressure chart at home and bring it to cardiology appointment in 7 to 10 days. Patient had ROCKY upon admission with creatinine at 1.8. Suspecting cardiorenal syndrome. He received IV diuresis with Lasix during course of the admission and creatinine improved to 1.1. He is being discharged with Lasix 40 mg p.o. daily with instructions to titrate to 40 mg p.o. twice daily if he gains more than 5 pounds in 3 days. Patient and acknowledged understanding of all instructions and will be coming back further follow-ups as instructed. Patient is an established patient with Dr. Frederick previously. He already has an AICD in place Patient feels significantly better since day of admission. His lower extremity edema is nearly resolved. He has diuresed well and is net negative 5L at time of discharge Physical Exam Narrative: General: No acute distress, AO x3 HEENT: PERRLA, pupils bilaterally equal and reactive, pallors not present Chest: Normal vesicular breath sounds, no added sounds, equal good air entry bilaterally CVS: S1-S2 regular, no murmurs, no tachycardia, no gallops, no rubs Abdomen: Soft, nontender, no organomegaly, bowel sounds present Neuro: No focal deficits, no facial deformity, AO x3, power 5/5 in all limbs Discharge Data Studies Completed and Pending Completed Studies During Hospitalization Category Date Time Status XR chest 1V portable [id number] Stat Exams 05/21/24 11:01 Completed NM john perf SPECT r/s* [id number] Routine Nuc Med 05/24/24 17:42 [place] [id number] Routine Ultrasound 05/22/24 10:32 Completed CV. echo complete* [id number] Routine Ultrasound 05/22/24 10:32 Completed Pending at discharge Category Date Time Status Cardiac Stress Test MIBI [Sestamibi Stress Test Request Exams 05/23/24 17:41 Ordered ] Routine Blood Culture Stat Lab 05/21/24 13:39 Results Radiology Impressions Chest X-Ray 05/21/24 11:01 IMPRESSION: 1. Focal hazy airspace opacity in the left lower lung. This may represent infiltrate, atelectasis, edema, and/or effusion. 2. Probable left pleural effusion. 3. Cardiomediastinal silhouette is midline and enlarged. Venous Duplex 05/22/24 10:32 IMPRESSION: No evidence of deep vein thrombosis in the lower extremities bilaterally. Laboratory Results WBC 12.15 10^3/uL (3.29-11.43) H 05/24/24 05:00 RBC 4.21 10^6/uL (3.85-5.65) 05/24/24 05:00 Hgb 13.30 g/dL (11.27-16.99) 05/24/24 05:00 Hct 42.9 % (37-53) 05/24/24 05:00 MCV 101.9 fl (82-101) H 05/24/24 05:00 MCH 31.6 pg (27-33) 05/24/24 05:00 MCHC 31.0 g/dL (30-55) 05/24/24 05:00 RDW 13.2 % (12.1-15.1) 05/24/24 05:00 Plt Count 191 10^3/cmm (157-399) 05/24/24 05:00 MPV 10.4 fL (7.4-10.4) 05/24/24 05:00 Neut % (Auto) 71.8 % 05/24/24 05:00 Lymph % (Auto) 17.7 % 05/24/24 05:00 Wolfe % (Auto) 9.1 % 05/24/24 05:00 Eos % (Auto) 0.6 % 05/24/24 05:00 Baso % (Auto) 0.3 % 05/24/24 05:00 Neut # (Auto) 8.73 10^3/uL (1.8-7.7) H 05/24/24 05:00 Lymph # (Auto) 2.2 10^3/uL (0.8-4.8) 05/24/24 05:00 Wolfe # (Auto) 1.1 10^3/uL (0.2-0.9) H 05/24/24 05:00 Eos # (Auto) 0.1 10^3/uL (0.0-0.8) 05/24/24 05:00 Baso # (Auto) 0.0 10^3/uL (0.0-0.1) 05/24/24 05:00 Nucleated RBC % (auto) 0 % 05/24/24 05:00 Nucleated RBCs # 0.0 /100WBC 05/24/24 05:00 D-Dimer 2.25 ug/mLFEU (0-0.59) H 05/21/24 11:01 Specimen Type Arterial 05/21/24 12:15 Sample Site Radial, right 05/21/24 12:15 ABG pH 7.45 (7.35-7.45) 05/21/24 12:15 ABG pCO2 55.9 mmHg (35-45) H 05/21/24 12:15 ABG pO2 65.7 mmHg (80.0-100.0) L 05/21/24 12:15 ABG PO2/FiO2 Ratio 182 05/21/24 12:15 ABG HCO3 38.7 mmol/L (22-26) H 05/21/24 12:15 ABG O2 Saturation 95.9 05/21/24 12:15 ABG Base Excess 12.6 mmol/L (-2.0-2.0) H 05/21/24 12:15 Obed Test Pos 05/21/24 12:15 A-a O2 Gradient 16.2 mmHg (5-10) H 05/21/24 12:15 Hematocrit 36.0 % (42-52) L 05/21/24 12:15 Hgb O2 Saturation 93.4 % (95-100) L 05/21/24 12:15 Carboxyhemoglobin 1.7 %THgb (0.4-20.1) 05/21/24 12:15 Methemoglobin 1.0 % (0.4-1.5) 05/21/24 12:15 Total Hemoglobin 11.8 g/dL (14-18) L 05/21/24 12:15 Sodium 141.0 mmol/L (131-143) 05/21/24 12:15 Potassium 4.6 mmol/L (3.5-5.0) 05/21/24 12:15 Glucose 113.0 mg/dL (70-115) 05/21/24 12:15 Ionized Calcium 1.3 mmol/L (1.1-1.4) 05/21/24 12:15 O2 Delivery Device Nc 05/21/24 12:15 O2 Liters/Min 4.0 % 05/21/24 12:15 FiO2 36.0 % 05/21/24 12:15 Asphalt Surface Heater Operator ID Ah 05/21/24 12:15 Sodium 140 mmol/L (136-145) 05/24/24 05:00 Potassium 3.4 mmol/L (3.5-5.1) L 05/24/24 05:00 Chloride 93 mmol/L (98-107) L 05/24/24 05:00 Carbon Dioxide 38 mmol/L (22-29) H 05/24/24 05:00 Anion Gap 12.4 (5-19) 05/24/24 05:00 BUN 24 mg/dL (8-23) H 05/24/24 05:00 Creatinine 1.1 mg/dL (0.7-1.2) 05/24/24 05:00 GFR Calculation 66.2 mL/min (90-130) L 05/24/24 05:00 Glucose 163 mg/dL (65-115) H 05/24/24 05:00 Calculated Osmolality 298 mOsm/kg (285-295) H 05/24/24 05:00 Lactic Acid 2.8 mmol/L (0.5-2.2) H 05/21/24 13:35 Lactic Acid (Sepsis) 4.4 mmol/L (0.5-2.2) H* 05/21/24 16:02 Calcium 10.6 mg/dL (8.5-10.5) H 05/24/24 05:00 Total Bilirubin 0.5 mg/dL (0.15-1.2) 05/24/24 05:00 AST 18 U/L (0-40) 05/24/24 05:00 ALT 17 U/L (0-41) 05/24/24 05:00 Alkaline Phosphatase 105 U/L (40-130) 05/24/24 05:00 Troponin T Baseline 137 ng/L (0-15) H* 05/21/24 11:01 Troponin T Hi Sens 6Hr 99.77 ng/L (0-15) H 05/21/24 17:15 Troponin T Hi Sens 6Hr Delta -37.23 ng/L (0-12) L 05/21/24 17:15 NT-Pro-B Natriuret Pep 5023 pg/mL (0-125) H 05/21/24 11:01 Total Protein 6.5 g/dL (6.6-8.7) L 05/24/24 05:00 Albumin 4.0 g/dL (3.5-5.2) 05/24/24 05:00 Globulin 2.5 g/dL (1.3-4.6) 05/24/24 05:00 Procalcitonin 0.09 ng/mL (0-0.5) 05/22/24 05:15 [place] 0.8 mmol/L (0.6-1.2) 05/21/24 11:01 Coronavirus (PCR) Negative (Negative) 05/21/24 13:30 Influenza A (PCR) Negative (Negative) 05/21/24 13:30 Influenza Type B (PCR) Negative (Negative) 05/21/24 13:30 RSV (PCR) Negative (Negative) 05/21/24 13:30 Vitals Last Vital Signs Temp 98.4 F 05/24/24 12:00 Pulse 82 05/24/24 13:22 Resp 18 05/24/24 13:22 BP 149/67 05/24/24 12:00 Pulse Ox 96 05/24/24 13:22 O2 Del Method Nasal Cannula 05/24/24 13:22 O2 Flow Rate 3 05/24/24 13:22 Discharge Plan Discharge Patient Disposition: Home Condition: Stable Prescriptions: New furosemide 40 mg Tablet 40 mg PO DAILY 30 Days Qty: 30 0RF pantoprazole 40 mg Tablet,Delayed Release (Dr/Ec) 40 mg PO DAILY 30 Days Qty: 30 0RF sacubitril-valsartan [Entresto] 24-26 mg tablet 1 tab PO BID 30 Days Qty: 60 0RF Continued lamotrigine 200 mg tablet 200 mg PO DAILY mirtazapine 15 mg tablet 15 mg PO BEDTIME quetiapine 25 mg tablet 25 - 72 mg PO BEDTIME pantoprazole 40 mg tablet,delayed release (DR/EC) 40 mg PO DAILY doxazosin 8 mg tablet 4 mg PO DAILY atorvastatin 80 mg tablet 80 mg PO DAILY gabapentin 300 mg capsule 300 mg PO TID aspirin [Adult Low Dose Aspirin] 81 mg tablet,delayed release (DR/EC) 81 mg PO DAILY Qty: 90 3RF carvedilol 25 mg tablet 12.5 mg PO DAILY Rx Instructions: must administer with a meal/food lithium carbonate 300 mg capsule 300 mg PO DAILY methocarbamol 500 mg Tablet 500 mg PO Q12H PRN (Reason: muscle spasms) guaifenesin [Mucinex] 600 mg Tablet Extended Release 12hr 600 mg PO BID albuterol sulfate 90 mcg/actuation HFA aerosol inhaler 2 puff INHALATION Q6H PRN (Reason: Shortness Of Breath) 30 Days Qty: 30 0RF Discontinued lisinopril 10 mg tablet 5 mg PO DAILY furosemide 20 mg tablet 20 mg PO DAILY Discharge Orders: Discharge Order (Routine); Ordered 05/24/24 Ordered By: Nitza Lee Other Ambulatory Orders: Comprehensive Metabolic Panel (Routine) Timeframe: 20240530 Facility: [facility] - Location: Lab - Main Lab Ordered By: Nitza Lee Referrals: Chanell Lee MD [Primary Care Provider] - 4-7 days (starting entresto , check CMP in one week ) Narciso Frederick MD [Physician] - 2 weeks Laila Armando FNP [Nurse Practitioner] - 7-10 days (worsening heart failure ) Discharge Diet: Usual diet Discharge Activity: Limit activity as instructed Patient Instructions: Opioid Safety, Pain Management Activity Restrictions/Additional Instructions: Thank you for choosing [facility] for your healthcare needs today. It is very important that you follow up as instructed or that you return to the Emergency Department should you have concerns or if your condition changes or worsens in any way. Stop lisinopril. Wait 2 days. Start Entresto after waiting for 2 days. Please maintain a blood pressure chart by checking your blood pressure twice a day every day. From the chart to your next cardiology appointment for review as doses need to be adjusted. Take Lasix 40 mg p.o. daily every day. If you notice that your weight has increased by more than 5 pounds in 2 days, increase the dose of Lasix to 40 mg p.o. twice daily and alert your last dipper with primary care doctor. Discharge Attestations Time Spent in Discharge Care*: greater than 30 min Quality Metrics Clinical Quality Measures [ No reported AMI, CVA or VTE this stay] Coding Level of Care Code Acute Code for [facility] Fwd Diagnoses Acute on chronic hypoxic respiratory failure J96.21 Acute on chronic systolic CHF (congestive heart failure), NYHA class 4 I50.23 Ischemic cardiomyopathy I25.5 Pneumonia J18.9
[2024-05-24] MEDS: potassium chloride ER 20 mEq Tablet PO (14:56)
--- NOTE | 2024-05-24 16:38 | PC.NURSE ---
Patient sitting on edge of bed with visitors at bedside. IV already removed. Belongings gathered. This nurse went over discharge paperwork with patient and . All questions were answered.
--- NOTE | 2024-05-24 16:41 | PC.NURSE ---
Patient exited facility via wheelchair, escorted by CEASAR Mera, at [id number].
--- NOTE | 2024-05-24 17:42 | NMCV_ITS ---
NM john perf SPECT r/s* [id number] Jim Carney Age: 68 Gender: M : 1955 Exam Date: 05/24/2024 07:05 Ordering Phys: Nitza Lee MD Technologist: PADMAJA Foote Exam Location: [facility] Indications: CP STRESS TEST [facility] IMAGE PROTOCOL Rest/Stress 1 Lexiscan Day Radiopharmaceutical Dose (mCi) Administration Site Administered by Rest: Tc-99m 11 IV Barbie Arellano, CHESTNUT TANNER Sestamibi Stress:Tc-99m 33 IV Barbie Teegle, CHESTNUT TANNER Sestamibi Rest: 24-May-2024 60 Discovery 630 Stress: 24-May-2024 30 Discovery 630 0.4mg Lexiscan. Supine position only as patient was unable to lay prone. SPECT RESULTS Technical Quality: Good Raw Data Analysis: Normal Image Corrections: No attenuation or motion correction applied Summed Stress Score: 41 Summed Rest Score: 40 Summed Difference Score: 1 PERFUSION FINDINGS Large sized areas of fixed perfusion defects seen in apical, anterior, inferior and apical lateral ortiz. This is consistent with large sized area of prior infarct in all 3 coronary artery distributions with no significant ischemia FUNCTIONAL RESULTS (calculated via Gated SPECT) Stress Image LV EF (%): 17 Stress EDV (mL):383 TID: 1.13 Stress ESV (mL):317 FUNCTIONAL FINDINGS: LV systolic function is severely reduced with EF of 17% IMPRESSIONS 1. Abnormal myocardial perfusion imaging with large areas of prior infarcts seen in the distribution of all 3 coronary arteries. No significant ischemia. LV systolic function is severely reduced with EF of 17%. Terry Jean MD (Electronically Signed) Final Date: 24 May 2024 11:09 S
== END 2024-05-24 16:45 | disposition home or self-care (01) | DRG 291 ==
LOC: ER 13:19 → MEDSURG 16:02
PROVIDERS: Admitting Provider Student in an Organized Health Care Education/Training Program; Emergency Provider Family Medicine; PCP Family Medicine; Visit Provider Student in an Organized Health Care Education/Training Program
DX: I50.23 Acute on chronic systolic (congestive) heart failure (principal); J96.21 Acute and chronic respiratory failure with hypoxia; N17.9 Acute kidney failure, unspecified; I25.5 Ischemic cardiomyopathy; I25.10 Atherosclerotic heart disease of native coronary artery without angina pectoris; T50.1X6A Underdosing of loop [high-ceiling] diuretics, initial encounter; R79.89 Other specified abnormal findings of blood chemistry; E78.5 Hyperlipidemia, unspecified; I25.2 Old myocardial infarction; Z95.810 Presence of automatic (implantable) cardiac defibrillator; Z99.81 Dependence on supplemental oxygen; Z79.82 Long term (current) use of aspirin
CPT/HCPCS: 0241U; 36415; 36600; 71045; 78452; 80051; 80053; 80178; 82330; 82805; 83605; 83880; 84145; 84484; 85025; 85378; 87040; 93005; 93017; 93306; 93970; 94640; 96372; 96375; A9500; J0360; J0696; J1644; J1650; J1940; J1956; J2785; J2919; J7626; Q0144

== ENCOUNTER → 2024-06-18 13:30 | Outpatient (BNVA) | payer OTHER, SELFPAY | PROVIDERS: PCP Family Medicine; Visit Provider Internal Medicine | DX: I25.10 Atherosclerotic heart disease of native coronary artery without angina pectoris (principal); E78.5 Hyperlipidemia, unspecified; I25.5 Ischemic cardiomyopathy; Z95.810 Presence of automatic (implantable) cardiac defibrillator; I50.23 Acute on chronic systolic (congestive) heart failure; Z87.891 Personal history of nicotine dependence | CPT/HCPCS: 99214 ==

== ENCOUNTER 2024-06-23 21:42 | Inpatient (IN) | payer OTHER, SELFPAY ==
[2024-06-23 21:44] VITALS: BP 124/66; PULSE 78; RESP 18; TEMP 36.4; O2SAT 97; BMI 38.0
--- NOTE | 2024-06-23 21:53 | CTR_ITS ---
PROCEDURE INFORMATION: Exam: CT Head Without Contrast Exam date and time: 06/23/2024 10:12 PM Age: 68 years old Clinical indication: Altered mental status/memory loss; Patient HX: EMS arrival from home for worsening confusion over last three weeks. ; Additional info: AMS TECHNIQUE: Imaging protocol: Computed tomography of the head without contrast. Radiation optimization: All CT scans at this facility use at least one of these dose optimization techniques: automated exposure control; mA and/or kV adjustment per patient size (includes targeted exams where dose is matched to clinical indication); or iterative reconstruction. COMPARISON: No relevant prior studies available. RADIATION DOSE METRICS: Total DLP (mGy-cm): 814.68 FINDINGS: Brain: Age-related chronic ischemic microvascular change. Subtle foci of possible hypodensity left more than right frontal lobe and right lateral cerebellum possibly related to remote ischemic events. No definite acute or subacute infarction. Cerebral ventricles: No ventriculomegaly. Paranasal sinuses: Visualized sinuses are unremarkable. No fluid levels. Mastoid air cells: Visualized mastoid air cells are well aerated. Bones: Unremarkable. No acute fracture. Soft tissues: Unremarkable. CT/CT head wo con* [id number] IMPRESSION: Chronic findings as described.
--- NOTE | 2024-06-23 21:53 | XRR_ITS ---
PROCEDURE INFORMATION: Exam: XR Chest Exam date and time: 06/23/2024 10:02 PM Age: 68 years old Clinical indication: Shortness of breath; Prior surgery; Surgery date: 6+ months; Surgery type: Defibrillator; Patient HX: EMS arrival from home for worsening confusion over last three weeks. History of chf. TECHNIQUE: Imaging protocol: Radiologic exam of the chest. Views: 1 view. COMPARISON: CR XR chest 1V portable [id number] 05/21/2024 11:09 AM FINDINGS: Tubes, catheters and devices: Left subclavian pacemaker. Lungs: Infiltrate left lung base versus layering effusion. Heart/Mediastinum: Cardiomegaly. Bones/joints: Unremarkable. Other findings: XR/XR chest 1V portable [id number] IMPRESSION: Stable examination compared to 05/21/2024 with suspected subtle infiltrate left lung base versus layering effusion.
--- NOTE | 2024-06-23 21:54 | W.ED.AMS ---
Documented by User: NAJMA Laguna 06/23/24 23:44 HPI - Altered Mental Status General: Chief Complaint: ER Hold Stated Complaint: AMS Time Seen by Provider: 06/23/24 21:49 History of Present Illness: 68-year-old male patient was brought in by EMS for concerns of altered mental status. It was reported patient has been having some worsening symptoms of mentation. Patient has known history of coronary artery disease, end-stage CHF, patient has a pacemaker and defibrillator in place. Review of the record noted a recent discharge from hospital at the end of April. Patient is a very poor historian. Patient stated that his wanted him to come to the emergency department. Patient has some mild shortness of breath but is able to speak in full sentences. Related Data Home Medications Medication Instructions Recorded Confirmed atorvastatin 80 mg tablet 80 mg PO DAILY 05/05/22 06/18/24 doxazosin 8 mg tablet 4 mg PO DAILY 05/05/22 06/18/24 gabapentin 300 mg capsule 300 mg PO TID 05/05/22 06/18/24 lamotrigine 200 mg tablet 200 mg PO DAILY 05/05/22 06/18/24 mirtazapine 15 mg tablet 15 mg PO BEDTIME 05/05/22 06/18/24 pantoprazole 40 mg tablet,delayed 40 mg PO DAILY 05/05/22 06/18/24 release quetiapine 25 mg tablet 25 - 72 mg PO BEDTIME 05/05/22 06/18/24 carvedilol 25 mg tablet 12.5 mg PO DAILY 07/13/22 06/18/24 lithium carbonate 300 mg capsule 300 mg PO DAILY 08/01/22 06/18/24 guaifenesin 600 mg tablet, 600 mg PO BID 05/21/24 06/18/24 extended release 12 hr (Mucinex) methocarbamol 500 mg tablet 500 mg PO Q12H PRN muscle spasms 05/21/24 06/18/24 cholecalciferol (vitamin D3) 50 50 mcg PO DAILY 06/18/24 06/18/24 mcg (2,000 unit) capsule mecobalamin (vitamin B12) 1,000 1,000 mcg PO DAILY 06/18/24 06/18/24 mcg chewable tablet melatonin 10 mg capsule 10 mg PO DAILY 06/18/24 06/18/24 Previous Rx's Medication Instructions Recorded aspirin 81 mg tablet,delayed 81 mg PO DAILY #90 tabs 05/05/22 release (Adult Low Dose Aspirin) albuterol sulfate 90 mcg/actuation 2 puff inhalation Q6H PRN 05/24/24 aerosol inhaler Shortness Of Breath 30 days #30 grams furosemide 40 mg tablet 40 mg PO DIRECTED #135 tabs 06/18/24 Allergies Allergy/AdvReac Type Severity Reaction Status Date / Time No Known Allergies Allergy Verified 06/23/24 21:48 Review of Systems General: Reports: 10 or more systems reviewed and unremarkable except in HPI and below Neuro: Reports: confusion [facility] ED PFSH: Medical History Abdominal aortic aneurysm (AAA) without rupture Cardiac resynchronization therapy defibrillator (HOTEL ASSOCIATE-D) in place Hyperlipidemia, unspecified Social History Smoking and tobacco/nicotine status: former use of tobacco/nicotine Physical Exam Const: COMMON NORMALS: alert HENMT: COMMON NORMALS: normocephalic HEAD & SCALP: normocephalic Neck/C-Spine: COMMON NORMALS: full ROM Resp: COMMON NORMALS: normal respiratory effort AUSCULTATION: diminished lung sounds Cardio: COMMON NORMALS: regular rate and regular rhythm RATE: regular rate RHYTHM: regular rhythm GI: OTHER: Rotund abdomen Extremity: NARRATIVE EXTREMITY EXAM: +2 pitting edema lower bilateral lower extremities Neuro: SENSORIUM/ORIENTATION: Yes alert Skin: COMMON NORMALS: turgor normal GENERAL SKIN EXAM: turgor normal Course Vital Signs: Vital signs: Vital Signs Temperature 97.6 F 06/23/24 21:44 Pulse Rate 98 06/24/24 00:07 Respiratory Rate 24 H 06/24/24 00:07 Blood Pressure 114/82 06/24/24 00:07 Pulse Oximetry 92 06/24/24 00:07 Oxygen Delivery Me thod BiPAP 06/24/24 00:07 Oxygen Flow Rate 3 06/23/24 23:01 Fraction of Inspir ed Oxygen 28 06/24/24 00:07 MDM - Altered Mental Status Medical Decision Making Patient comes in today for worsening confusion. Patient has CHF and is chronic. Patient's ejection fraction was last done was in the hospital last month was 17% but has been as low as 13%. Patient had medications adjusted at that time. Patient appears in mild shortness of breath but is able to complete sentences. Patient has oxygen in place and has saturation 97%. Patient has +2 pitting lower extremity edema. Patient has diminished lung sounds. Vital signs are normal. Differential diagnosis includes but not limited to exacerbation of CHF, electrolyte imbalance, ROCKY, dementia, UTI, CVA unlikely. 2255, spouse arrived to the ER. Talk with spouse about the reasoning for her to have the patient be brought to the emergency department. Spouse reports that patient went to bed last night and seemed normal for self. But throughout the day he has been drowsy and confused most of the day. This has been abnormal for patient. Patient does also have a history of COPD and patient utilizes oxygen 3 LPM at home. 2330. Patient was found to have a CO2 level of 102 on the ABG. Patient was acidotic at 7.16. Patient was placed on BiPAP and to titrate as needed. We will admit patient for monitoring and further evaluation. Talked with Dr. Lai who graciously accepted patient for admit to ICU. We will plan for recheck of ABG in 2 hours and may need to intubate if no significant improvement is noted. Lab Data 06/23/24 22:04 06/23/24 22:04 Radiology Impressions Chest X-Ray 06/23/24:53 IMPRESSION: Stable examination compared to 05/21/2024 with suspected subtle infiltrate left lung base versus layering effusion. Head CT 06/23/24 21:53 IMPRESSION: Chronic findings as described. Laboratory Results WBC 7.38 10^3/uL (3.29-11.43) 06/23/24 22:04 RBC 3.80 10^6/uL (3.85-5.65) L 06/23/24 22:04 Hgb 11.80 g/dL (11.27-16.99) 06/23/24 22:04 Hct 41.0 % (37-53) 06/23/24 22:04 MCV 107.9 fl (82-101) H 06/23/24 22:04 MCH 31.1 pg (27-33) 06/23/24 22:04 MCHC 28.8 g/dL (30-55) L 06/23/24 22:04 RDW 13.3 % (12.1-15.1) 06/23/24 22:04 Plt Count 148 10^3/cmm (157-399) L 06/23/24 22:04 MPV 10.9 fL (7.4-10.4) H 06/23/24 22:04 Neut % (Auto) 79.0 % 06/23/24 22:04 Lymph % (Auto) 13.3 % 06/23/24 22:04 Mobile % (Auto) 5.8 % 06/23/24 22:04 Eos % (Auto) 1.1 % 06/23/24 22:04 Baso % (Auto) 0.3 % 06/23/24 22:04 Neut # (Auto) 5.83 10^3/uL (1.8-7.7) 06/23/24 22:04 Lymph # (Auto) 1.0 10^3/uL (0.8-4.8) 06/23/24 22:04 Mobile # (Auto) 0.4 10^3/uL (0.2-0.9) 06/23/24 22:04 Eos # (Auto) 0.1 10^3/uL (0.0-0.8) 06/23/24 22:04 Baso # (Auto) 0.0 10^3/uL (0.0-0.1) 06/23/24 22:04 Nucleated RBC % (auto) 0 % 06/23/24 22:04 Nucleated RBCs # 0.0 /100WBC 06/23/24 22:04 Specimen Type Arterial 06/23/24 23:03 Sample Site Brachial, left 06/23/24 23:03 ABG pH 7.16 (7.35-7.45) L* 06/23/24 23:03 ABG pCO2 > 102.0 mmHg (35-45) H* 06/23/24 23:03 ABG pO2 91.8 mmHg (80.0-100.0) 06/23/24 23:03 ABG HCO3 44.0 mmol/L (22-26) H 06/23/24 23:03 ABG Base Excess 11.3 mmol/L (-2.0-2.0) H 06/23/24 23:03 Obed Test N/a 06/23/24 23:03 Hematocrit 35.1 % (42-52) L 06/23/24 23:03 O2 Delivery Device Nc 06/23/24 23:03 O2 Liters/Min 2.0 % 06/23/24 23:03 Certified Medical Technician ID Jag 06/23/24 23:03 Sodium 139 mmol/L (136-145) 06/23/24 22:04 Potassium 4.5 mmol/L (3.5-5.1) 06/23/24 22:04 Chloride 93 mmol/L (98-107) L 06/23/24 22:04 Carbon Dioxide 41 mmol/L (22-29) H 06/23/24 22:04 Anion Gap 9.5 (5-19) 06/23/24 22:04 BUN 30 mg/dL (8-23) H 06/23/24 22:04 Creatinine 2.2 mg/dL (0.7-1.2) H 06/23/24 22:04 GFR Calculation 29.7 mL/min (90-130) L 06/23/24 22:04 Glucose 146 mg/dL (65-115) H 06/23/24 22:04 Calculated Osmolality 297 mOsm/kg (285-295) H 06/23/24 22:04 Lactic Acid 0.6 mmol/L (0.5-2.2) 06/23/24 22:04 Calcium 10.6 mg/dL (8.5-10.5) H 06/23/24 22:04 Phosphorus 4.5 mg/dL (2.5-4.5) 06/23/24 22:04 Magnesium 2.1 mg/dL (1.7-2.3) 06/23/24 22:04 Total Bilirubin 0.3 mg/dL (0.15-1.2) 06/23/24 22:04 AST 16 U/L (0-40) 06/23/24 22:04 ALT 8 U/L (0-41) 06/23/24 22:04 Alkaline Phosphatase 103 U/L (40-130) 06/23/24 22:04 NT-Pro-B Natriuret Pep 1225 pg/mL (0-125) H 06/23/24 22:04 Total Protein 6.7 g/dL (6.6-8.7) 06/23/24 22:04 Albumin 3.9 g/dL (3.5-5.2) 06/23/24 22:04 Globulin 2.8 g/dL (1.3-4.6) 06/23/24 22:04 TSH 0.93 uIU/mL (0.27-4.20) 06/23/24 22:04 Urine Color Yellow (Yellow) 06/23/24 22:36 Urine Appearance Clear (CLEAR) 06/23/24 22:36 Urine pH 5.0 (5-7) 06/23/24 22:36 Ur Specific [place] 1.019 (1.005-1.030) 06/23/24 22:36 Urine Protein Trace (Negative) A 06/23/24 22:36 Urine Glucose (UA) Negative (Normal) 06/23/24 22:36 Urine Ketones Negative (Negative) 06/23/24 22:36 Urine Blood Negative (Negative) 06/23/24 22:36 Urine Nitrate Negative (Negative) 06/23/24 22:36 Urine Bilirubin Negative (Negative) 06/23/24 22:36 Urine Urobilinogen 0.2 mg/dL (Negative) 06/23/24 22:36 Ur Leukocyte Esterase Trace (Negative) A 06/23/24 22:36 Urine RBC 0-2 /hpf (0-2) 06/23/24 22:36 Urine WBC 0-5 /hpf (0-5) 06/23/24 22:36 Ur Squamous Epith Cells 0-5 /hpf (0-5) 06/23/24 22:36 Amorphous Sediment Not Reportable 06/23/24 22:36 Urine Bacteria None seen /hpf (NONE) 06/23/24 22:36 Hyaline Casts 36.80 /lpf 06/23/24 22:36 All radiology interpretation(s) finalized by discharge Discharge Plan Discharge Patient Disposition: Admitted As Inpatient Admit Provider: Sophie Marks Clinical Impression: Hypercapnia, Delirium due to general medical condition Condition: Stable 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[employer] Documented by User: Kyle Doty, 06/24/24 00:32 HPI - Altered Mental Status General: Chief Complaint: ER Hold Stated Complaint: AMS Time Seen by Provider: 06/23/24 21:49 Related Data Home Medications Medication Instructions Recorded Confirmed atorvastatin 80 mg tablet 80 mg PO DAILY 05/05/22 06/18/24 doxazosin 8 mg tablet 4 mg PO DAILY 05/05/22 06/18/24 gabapentin 300 mg capsule 300 mg PO TID 05/05/22 06/18/24 lamotrigine 200 mg tablet 200 mg PO DAILY 05/05/22 06/18/24 mirtazapine 15 mg tablet 15 mg PO BEDTIME 05/05/22 06/18/24 pantoprazole 40 mg tablet,delayed 40 mg PO DAILY 05/05/22 06/18/24 release quetiapine 25 mg tablet 25 - 72 mg PO BEDTIME 05/05/22 06/18/24 carvedilol 25 mg tablet 12.5 mg PO DAILY 07/13/22 06/18/24 lithium carbonate 300 mg capsule 300 mg PO DAILY 08/01/22 06/18/24 guaifenesin 600 mg tablet, 600 mg PO BID 05/21/24 06/18/24 extended release 12 hr (Mucinex) methocarbamol 500 mg tablet 500 mg PO Q12H PRN muscle spasms 05/21/24 06/18/24 cholecalciferol (vitamin D3) 50 50 mcg PO DAILY 06/18/24 06/18/24 mcg (2,000 unit) capsule mecobalamin (vitamin B12) 1,000 1,000 mcg PO DAILY 06/18/24 06/18/24 mcg chewable tablet melatonin 10 mg capsule 10 mg PO DAILY 06/18/24 06/18/24 Previous Rx's Medication Instructions Recorded aspirin 81 mg tablet,delayed 81 mg PO DAILY #90 tabs 05/05/22 release (Adult Low Dose Aspirin) albuterol sulfate 90 mcg/actuation 2 puff inhalation Q6H PRN 05/24/24 aerosol inhaler Shortness Of Breath 30 days #30 grams furosemide 40 mg tablet 40 mg PO DIRECTED #135 tabs 06/18/24 Allergies Allergy/AdvReac Type Severity Reaction Status Date / Time No Known Allergies Allergy Verified 06/23/24 21:48 [facility] ED PFS: Medical History Abdominal aortic aneurysm (AAA) without rupture Cardiac resynchronization therapy defibrillator (HOTEL ASSOCIATE-D) in place Hyperlipidemia, unspecified Social History Smoking and tobacco/nicotine status: former use of tobacco/nicotine Course Vital Signs: Vital signs: Vital Signs Temperature 97.6 F 06/23/24 21:44 Pulse Rate 98 06/24/24 00:07 Respiratory Rate 24 H 06/24/24 00:07 Blood Pressure 114/82 06/24/24 00:07 Pulse Oximetry 92 06/24/24 00:07 Oxygen Delivery Me thod BiPAP 06/24/24 00:07 Oxygen Flow Rate 3 06/23/24 23:01 Fraction of Inspir ed Oxygen 28 06/24/24 00:07 MDM - Altered Mental Status Medical Decision Making Patient comes in today for worsening confusion. Patient has CHF and is chronic. Patient's ejection fraction was last done was in the hospital last month was 17% but has been as low as 13%. Patient had medications adjusted at that time. Patient appears in mild shortness of breath but is able to complete sentences. Patient has oxygen in place and has saturation 97%. Patient has +2 pitting lower extremity edema. Patient has diminished lung sounds. Vital signs are normal. Differential diagnosis includes but not limited to exacerbation of CHF, electrolyte imbalance, ROCKY, dementia, UTI, CVA unlikely. 2254, spouse arrived to the ER. Talk with spouse about the reasoning for her to have the patient be brought to the emergency department. Spouse reports that patient went to bed last night and seemed normal for self. But throughout the day he has been drowsy and confused most of the day. This has been abnormal for patient. Patient does also have a history of COPD and patient utilizes oxygen 3 LPM at home. 2330. Patient was found to have a CO2 level of 102 on the ABG. Patient was acidotic at 7.16. Patient was placed on BiPAP and to titrate as needed. We will admit patient for monitoring and further evaluation. Talked with Dr. Lai who graciously accepted patient for admit to ICU. We will plan for recheck of ABG in 2 hours and may need to intubate if no significant improvement is noted. This patient was originally seen by NAJMA Higginbotham.? I agree with his history, evaluation, and treatment. Lab Data 06/23/24 22:04 06/23/24 22:04 Radiology Impressions Chest X-Ray 06/23/24:53 IMPRESSION: Stable examination compared to 05/21/2024 with suspected subtle infiltrate left lung base versus layering effusion. Head CT 06/23/24:53 IMPRESSION: Chronic findings as described. Laboratory Results WBC 7.38 10^3/uL (3.29-11.43) 06/23/24 22:04 RBC 3.80 10^6/uL (3.85-5.65) L 06/23/24 22:04 Hgb 11.80 g/dL (11.27-16.99) 06/23/24 22:04 Hct 41.0 % (37-53) 06/23/24 22:04 MCV 107.9 fl (82-101) H 06/23/24 22:04 MCH 31.1 pg (27-33) 06/23/24 22:04 MCHC 28.8 g/dL (30-55) L 06/23/24 22:04 RDW 13.3 % (12.1-15.1) 06/23/24 22:04 Plt Count 148 10^3/cmm (157-399) L 06/23/24 22:04 MPV 10.9 fL (7.4-10.4) H 06/23/24 22:04 Neut % (Auto) 79.0 % 06/23/24 22:04 Lymph % (Auto) 13.3 % 06/23/24 22:04 Mobile % (Auto) 5.8 % 06/23/24 22:04 Eos % (Auto) 1.1 % 06/23/24 22:04 Baso % (Auto) 0.3 % 06/23/24 22:04 Neut # (Auto) 5.83 10^3/uL (1.8-7.7) 06/23/24 22:04 Lymph # (Auto) 1.0 10^3/uL (0.8-4.8) 06/23/24 22:04 Mobile # (Auto) 0.4 10^3/uL (0.2-0.9) 06/23/24 22:04 Eos # (Auto) 0.1 10^3/uL (0.0-0.8) 06/23/24 22:04 Baso # (Auto) 0.0 10^3/uL (0.0-0.1) 06/23/24 22:04 Nucleated RBC % (auto) 0 % 06/23/24 22:04 Nucleated RBCs # 0.0 /100WBC 06/23/24 22:04 Specimen Type Arterial 06/23/24 23:03 Sample Site Brachial, left 06/23/24 23:03 ABG pH 7.16 (7.35-7.45) L* 06/23/24 23:03 ABG pCO2 > 102.0 mmHg (35-45) H* 06/23/24 23:03 ABG pO2 91.8 mmHg (80.0-100.0) 06/23/24 23:03 ABG HCO3 44.0 mmol/L (22-26) H 06/23/24 23:03 ABG Base Excess 11.3 mmol/L (-2.0-2.0) H 06/23/24 23:03 Obed Test N/a 06/23/24 23:03 Hematocrit 35.1 % (42-52) L 06/23/24 23:03 O2 Delivery Device Nc 06/23/24 23:03 O2 Liters/Min 2.0 % 06/23/24 23:03 Certified Medical Technician ID Jag 06/23/24 23:03 Sodium 139 mmol/L (136-145) 06/23/24 22:04 Potassium 4.5 mmol/L (3.5-5.1) 06/23/24 22:04 Chloride 93 mmol/L (98-107) L 06/23/24 22:04 Carbon Dioxide 41 mmol/L (22-29) H 06/23/24 22:04 Anion Gap 9.5 (5-19) 06/23/24 22:04 BUN 30 mg/dL (8-23) H 06/23/24 22:04 Creatinine 2.2 mg/dL (0.7-1.2) H 06/23/24 22:04 GFR Calculation 29.7 mL/min (90-130) L 06/23/24 22:04 Glucose 146 mg/dL (65-115) H 06/23/24 22:04 Calculated Osmolality 297 mOsm/kg (285-295) H 06/23/24 22:04 Lactic Acid 0.6 mmol/L (0.5-2.2) 06/23/24 22:04 Calcium 10.6 mg/dL (8.5-10.5) H 06/23/24 22:04 Phosphorus 4.5 mg/dL (2.5-4.5) 06/23/24 22:04 Magnesium 2.1 mg/dL (1.7-2.3) 06/23/24 22:04 Total Bilirubin 0.3 mg/dL (0.15-1.2) 06/23/24 22:04 AST 16 U/L (0-40) 06/23/24 22:04 ALT 8 U/L (0-41) 06/23/24 22:04 Alkaline Phosphatase 103 U/L (40-130) 06/23/24 22:04 NT-Pro-B Natriuret Pep 1225 pg/mL (0-125) H 06/23/24 22:04 Total Protein 6.7 g/dL (6.6-8.7) 06/23/24 22:04 Albumin 3.9 g/dL (3.5-5.2) 06/23/24 22:04 Globulin 2.8 g/dL (1.3-4.6) 06/23/24 22:04 TSH 0.93 uIU/mL (0.27-4.20) 06/23/24 22:04 Urine Color Yellow (Yellow) 06/23/24:36 Urine Appearance Clear (CLEAR) 06/23/24 22:36 Urine pH 5.0 (5-7) 06/23/24 22:36 Ur Specific [place] 1.019 (1.005-1.030) 06/23/24 22:36 Urine Protein Trace (Negative) A 06/23/24:36 Urine Glucose (UA) Negative (Normal) 06/23/24 22:36 Urine Ketones Negative (Negative) 06/23/24 22:36 Urine Blood Negative (Negative) 06/23/24: Urine Nitrate Negative (Negative) 06/23/24 22: Urine Bilirubin Negative (Negative) 06/23/24 22:36 Urine Urobilinogen 0.2 mg/dL (Negative) 06/23/24 22:36 Ur Leukocyte Esterase Trace (Negative) A 06/23/24 22:36 Urine RBC 0-2 /hpf (0-2) 06/23/24 22:36 Urine WBC 0-5 /hpf (0-5) 06/23/24 22:36 Ur Squamous Epith Cells 0-5 /hpf (0-5) 06/23/24 22:36 Amorphous Sediment Not Reportable 06/23/24 22:36 Urine Bacteria None seen /hpf (NONE) 06/23/24 22:36 Hyaline Casts 36.80 /lpf 06/23/24 22:36 Discharge Plan Discharge Patient Disposition: Admitted As Inpatient Admit Provider: Sophie Marks Clinical Impression: Hypercapnia, Delirium due to general medical condition Condition: Stable 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
[2024-06-23 22:17] LABS: Basophils % 0.3 %; Eosinophils # 0.1 10^3/uL (0.0-0.8); Eosinophils % 1.1 %; Lymphocytes % 13.3 %; Mean Corpuscular HGB Conc 28.8 g/dL (30-55); Mean Corpuscular Hemoglobin 31.1 pg (27-33); Mean Corpuscular Volume 107.9 fl (82-101); Mean Platelet Volume 10.9 fL (7.4-10.4); Monocytes # 0.4 10^3/uL (0.2-0.9); Monocytes % 5.8 %; Neutrophils # 5.83 10^3/uL (1.8-7.7); Nucleated Red Blood Cells % 0 %; Platelet Count 148 10^3/cmm (157-399); Red Cell Distribution Width 13.3 % (12.1-15.1); White Blood Count 7.38 10^3/uL (3.29-11.43)
[2024-06-23 22:21] VITALS: BP 122/58; PULSE 66; RESP 18; O2SAT 100
[2024-06-23 22:36] LABS: Lactic Sepsis W/Reflex 0.6 mmol/L (0.5-2.2)
[2024-06-23 22:41] LABS: Bilirubin Urine Negative (Negative); Blood Urine Negative (Negative); Glucose Urine UA Negative (Normal); Ketones Urine Negative (Negative); Leukocyte Esterase Urine Trace (Negative); Nitrate Urine Negative (Negative); Protein Urine Trace (Negative); Specific Gravity, Urine 1.019 (1.005-1.030); Urine Appearance Clear (CLEAR); Urine Color Yellow (Yellow); Urobilinogen Urine 0.2 mg/dL (Negative)
[2024-06-23 22:45] LABS: Alanine Aminotransferase 8 U/L (0-41); Albumin Level 3.9 g/dL (3.5-5.2); Alkaline Phosphatase 103 U/L (40-130); Anion Gap 9.5 (5-19); Aspartate Amino Transferase 16 U/L (0-40); Blood Urea Nitrogen 30 mg/dL (8-23); Calcium 10.6 mg/dL (8.5-10.5); Chloride 93 mmol/L (98-107); Creatinine Clr Calc Pharmacy 38.1815; Globulin 2.8 g/dL (1.3-4.6); Glomerular Filtration Rate 29.7 mL/min (90-130); Glucose 146 mg/dL (65-115); Magnesium 2.1 mg/dL (1.7-2.3); NT Pro B Type Natriuretic Pept 1225 pg/mL (0-125); Osmolality Calculated 297 mOsm/kg (285-295); Phosphorus 4.5 mg/dL (2.5-4.5); Potassium 4.5 mmol/L (3.5-5.1); Sodium 139 mmol/L (136-145); Thyroid Stimulating Hormone 0.93 uIU/mL (0.27-4.20); Total Bilirubin 0.3 mg/dL (0.15-1.2); Total Protein 6.7 g/dL (6.6-8.7)
[2024-06-23 22:46] LABS: Add Urine Microscopic? YES; Bacteria Urine None Seen /hpf; RBC Urine 0-2 /hpf (0-2); Squamous Epithelial Cell Urine 0-5 /hpf (0-5); Universal Test for UA Present (0); WBC Urine 0-5 /hpf (0-5)
[2024-06-23 22:55] LABS: Carbon Dioxide 41 mmol/L (22-29)
[2024-06-23 23:01] VITALS: BP 94/63; PULSE 64; RESP 22; O2SAT 96
[2024-06-23 23:15] LABS: Arterial Blood Gas Hematocrit 35.1 % (42-52); Base Excess ABG 11.3 mmol/L (-2.0-2.0); Blood Gas Operator Identificat SAM; Blood Gas Sample Site Brachial, left; Blood Gas Sample Type Arterial; Oxygen Device NC; PO2 ABG 91.8 mmHg (80.0-100.0)
[2024-06-23 23:16] LABS: ABG PCO2 > 102.0 mmHg (35-45); ABG PH Result 7.16 (7.35-7.45)
--- NOTE | 2024-06-23 23:18 | ECG_ITS ---
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 Measurements Intervals [place] Rate: 60 P: 0 TX: 0 QRS: -75 QRSD: 215 T: 118 QT: 495 QTc: 495 Interpretive Statements ELECTRONIC VENTRICULAR PACEMAKER Compared to ECG 05/21/2024 17:55:37 No significant changes Electronically Signed On 06-29-2024 13:22:47 [employer] by Terry Jean M.D. [email or web address]
--- NOTE | 2024-06-23 23:25 | PM.HP ---
Providers/Chief Complaint Admitting Physician: William Marks MD Primary Care Provider: Chanell Lee MD Chief Complaint: AMS History of Present Illness The patient's was at bedside and provided the history. The patient was able to answer the review of system questions. Jim Carney is a 68yo, [place], with CAD, [place] in 2016, ischemic Cardiomyopathy, chronic HFrEF (EF <30%) s/p PPM/ICD, chronic hypoxic respiratory failure on continuous 3L, COPD, Bipolar I disorder, who presented to the ED on 06/23/2024 w/ Altered Mental Status. The states that he went to the ED on Monday, for his f/u post hospitalization visit and th fact that he has been having increasing pedal edema. The [facility] recommended adding Lasix 20mg in the afternoon to his daily Lasix 40mg po taken in the morning. According to the , the patient was tired all day long. He woke up around 2am and said that he did not have good balance. He ate and then slept all day long. WHen she woke him up at 8pm, he was very confused and kept asking about the daughter, who was in front of him. According to the , he seemed more sedated, so she called EMS. Per , when he went to the [facility], they said that he had a temp of 100F. He denies fever or chills, but has been very cold lately. In the ED, his vitals were significant for episodes of tachypnea. He has no leukocytosis, but his labs are significant for ROCKY Cr of 1.2 (baseline Cr of 06/23/2024). His ABG was ABG 7.16/>102/60.4. He was placed on BiPAP and admitted. B/c there were limited beds, he remained in the ED under hospitalist service. After about 2.5hr of BiPAP, ABG was repeated, and it showed 7.33/83/60.4. BiPAP was d/c'ed and he was placed on 3-4LNC. Review of Systems Const: Reports: change in appetite (poor), fatigue and change in sleep pattern (very sleepy); Denies: fever(s) or chills Eyes: Denies: change in vision ENMT: Reports: nasal discharge (chronic ) and nasal congestion (chronic ); Denies: odynophagia, ear or mastoid pain or ear discharge Card: Reports: edema and swelling of feet/ankles; Denies: chest pain, palpitations or lightheadedness Resp: Denies: dyspnea or wheezing GI: Denies: abdominal pain, nausea, vomiting, diarrhea, constipation, hematochezia or melena : Reports: urinary frequency (chronic ) and urinary urgency (chronic ); Denies: difficulty urinating, dysuria or hematuria Musc: Denies: joint pain Skin/Breast: Denies: rash or new lesions Neuro: Reports: other (no syncope); Denies: headache(s) Psych: Denies: depression, suicidal ideation or homicidal ideation Endo: Reports: cold intolerance; Denies: heat intolerance Sukhi/Lymph: Reports: easy bruising and easy bleeding Medications/Allergies Home Medications Medication Instructions Recorded Confirmed Last Taken Type aspirin 81 mg tablet,delayed 81 mg PO DAILY #90 tabs 05/05/22 06/18/24 05/20/24 Rx release (Adult Low Dose Aspirin) atorvastatin 80 mg tablet 80 mg PO DAILY 05/05/22 06/18/24 05/20/24 History doxazosin 8 mg tablet 4 mg PO DAILY 05/05/22 06/18/24 05/20/24 History gabapentin 300 mg capsule 300 mg PO TID 05/05/22 06/18/24 05/20/24 History lamotrigine 200 mg tablet 200 mg PO DAILY 05/05/22 06/18/24 05/20/24 History mirtazapine 15 mg tablet 15 mg PO BEDTIME 05/05/22 06/18/24 05/20/24 History pantoprazole 40 mg tablet,delayed 40 mg PO DAILY 05/05/22 06/18/24 05/20/24 History release quetiapine 25 mg tablet 25 - 72 mg PO BEDTIME 05/05/22 06/18/24 05/20/24 History carvedilol 25 mg tablet 12.5 mg PO DAILY 07/13/22 06/18/24 05/20/24 History lithium carbonate 300 mg capsule 300 mg PO DAILY 08/01/22 06/18/24 05/20/24 History guaifenesin 600 mg tablet, 600 mg PO BID 1206/18/24 05/21/24 History extended release 12 hr (Mucinex) methocarbamol 500 mg tablet 500 mg PO Q12H PRN muscle spasms 05/21/24 06/18/24 Unknown History albuterol sulfate 90 mcg/actuation 2 puff inhalation Q6H PRN 05/24/24 06/18/24 Unknown Rx aerosol inhaler Shortness Of Breath 30 days #30 grams cholecalciferol (vitamin D3) 50 50 mcg PO DAILY 06/18/24 06/18/24 Unknown History mcg (2,000 unit) capsule furosemide 40 mg tablet 40 mg PO DIRECTED #135 tabs 06/18/24 06/18/24 Unknown Rx mecobalamin (vitamin B12) 1,000 1,000 mcg PO DAILY 06/18/24 06/18/24 Unknown History mcg chewable tablet melatonin 10 mg capsule 10 mg PO DAILY 06/18/24 06/18/24 Unknown History Allergies Allergy/AdvReac Type Severity Reaction Status Date / Time No Known Allergies Allergy Verified 06/23/24 21:48 PFSH Acute PFSH: Medical History (Updated 06/24/24 @ 08:13 by Sophie Marks MD) Hyperparathyroidism s/p parathyroid tumor removal Depression Bipolar 1 disorder Gastrointestinal stromal tumor s/p surgery in 2019 in [place]. No chemo or radiation needed. Hypertension Ischemic cardiomyopathy CAD (coronary artery disease) s/p 1 stent in 2015 Cardiac resynchronization therapy defibrillator ([employer]D) in place Hyperlipidemia, unspecified Surgical History (Updated 06/24/24 @ 06:47 by Sophie Marks MD) History of lumbar laminectomy in 2013 in [place] Abdominal aortic aneurysm (AAA) without rupture s/p surgery in 2018 or 2019 in [place] Family History (Updated 06/24/24 @ 06:48 by Sophie Marks MD) Father Heart attack Social History (Updated 06/24/24 @ 06:47 by Sophie Marks MD) Smoking and tobacco/nicotine status: former use of tobacco/nicotine Alcohol intake: never Substance/Drug Use: current Substance/Drug use type: Marijuana Vitals/I&O/Wt Last Vital Signs Temp 97.6 F 06/23/24 21:44 Pulse 64 06/23/24 23:01 Resp 22 H 06/23/24 23:01 BP 94/63 06/23/24 23:01 Pulse Ox 96 06/23/24 23:01 O2 Del Method Nasal Cannula 06/23/24 23:01 O2 Flow Rate 3 06/23/24 23:01 06/23/24 06/23/24 06/24/24 14:59 22:59 06:59 Intake Total 0 / 0 Balance 0 / 0 Weight last 48 hrs Weight 113.398 kg Physical Exam Const: GENERAL APPEARANCE: cooperative and comfortable ORIENTATION/CONSCIOUSNESS: Yes awake, Yes oriented to person, Yes oriented to place and Yes oriented to time HENMT: HEAD & SCALP: normal to inspection, normocephalic and atraumatic NOSE: Normal external nose present EXTERNAL EAR: Yes external ears normal MOUTH: Normal oral and palatal mucosa present THROAT: posterior oropharynx normal Eye: OTHER: PERRL, EOMI, normal conjunctiva bilaterally Neck/C-Spine: GENERAL: Yes normal visual inspection and Yes trachea midline THYROID: Thyroid normal CAROTIDS: No bruit CERVICAL SPINE: Yes cervical ROM normal Lymph: OTHER: No cervical or supraclavicular LAD Resp: OTHER: Crackles and diminishing breath sounds from the bilateral middle to lower lung aguayo. Cardio: OTHER: RRR, no m/r/g or clicks. 2+ DP and radial pulses. No carotid bruits. GI: OTHER: BS+, NT, ND, no guarding, no rigidity, no rebound tenderness, no hepatosplenomegaly. Extremity: GENERAL: No clubbing, No cyanosis and No edema Neuro: SENSORIUM/ORIENTATION: Yes alert, Yes oriented to person, Yes oriented to place and Yes oriented to time CRANIAL NERVES: Yes CN normal except as noted SPEECH: speech normal SENSORY EXAM: No sensory level loss detected MOTOR EXAM: 5/5 motor strength present throughout Psych: APPEARANCE: Yes grossly normal ATTITUDE: Yes calm and Yes engaged ACTIVITY/MOTOR BEHAVIOR: Yes appropriate eye contact SPEECH: Yes normal speech MOOD & AFFECT: Yes euthymic mood THOUGHT PROCESS: Normal thought process present THOUGHT CONTENT: Yes Normal thought content present ATTENTION/CONCENTRATION: Yes attention grossly intact MEMORY/COGNITION: Yes memory grossly intact Skin: GENERAL SKIN EXAM: no rashes or lesions noted Data 06/23/24 22:04 06/23/24 22:04 A&P Assessment and plan (1) Encephalopathy acute: (2) Acute on chronic respiratory failure with hypoxia and hypercapnia: Plan Jim Carney is a 68yo, [place], with CAD, [place] in 2016, ischemic Cardiomyopathy, chronic HFrEF (EF <30%) s/p PPM/ICD, chronic hypoxic respiratory failure on continuous 3L, COPD, Bipolar I disorder, who presented to the ED on 06/23/2024 w/ altered mental status. He was admitted for #AMS: due to #Hypoxic/Hypercapneic encephalopathy -F/u COVID/flu AB/RSV pcr -Continue to monitor. #Acute on chronic hypoxic hypercapneic respiratory failure #Acute on chronic HFrEF #Moderate L. pleural effusion and small R. pleural effusion - Started Midodrine scheduled. Lasix q12h + daily acetazolamide. Gave albumin w/ Lasix this AM. Strict Is & Os. - Kept NPO except for important meds and ordered thoracentesis. #Ischemic Cardiomyopathy s/p PPM/ICD - Continue Telemetry monitoring. #ROCKY: As suspected in last hospitalization, this may be #Cardiorenal syndrome - Will start diuresis, monitor renal function and strict I's and O's. #COPD: not in exacerbation. Duonebs prn. #CAD, [place] in 2016 #HLD - Held other meds #GERD - IV PPI #Bipolar I disorder - Resumed Lamictal and [place]. #Depression - Held meds. DVT ppx: Lovenox ordered to start tonight. GI ppx: PPI IV Attestations Medical Necessity Statement*: Patient needs to be hospitalized for greater than 2 midnights for his hypoxic/hypercapnic encephalopathy, acute on chronic hypoxic/hypercapnic respiratory failure, acute on chronic HFrEF, pleural effusions and ROCKY. Time Spent in Patient Care: >70mins was spent on patient and his interview/patient physical exam, lab/image review, formulation of plan and coordination of care. Coding Level of Care Code 21655 Other Coding Information Focused coding review requested Diagnoses Encephalopathy acute G93.40 Acute on chronic respiratory failure with hypoxia and hypercapnia J96.21; J96.22
[2024-06-23 23:34] VITALS: PULSE 63; RESP 22; O2SAT 93
[2024-06-24] VITALS (28 sets, daily range): BP systolic 84–138; BP diastolic 49–82; PULSE 60–99; RESP 10–26; TEMP 36.9–37.1; O2SAT 90–99
--- NOTE | 2024-06-24 00:31 | CTR_ITS ---
PROCEDURE INFORMATION: Exam: CT Chest Without Contrast; Diagnostic Exam date and time: 06/24/2024 12:45 AM Age: 68 years old Clinical indication: Shortness of breath; Patient HX: SOB with hypoxia; Additional info: Evaluate cxr infiltrate vs pleural effusion TECHNIQUE: Imaging protocol: Diagnostic computed tomography of the chest without contrast. Radiation optimization: All CT scans at this facility use at least one of these dose optimization techniques: automated exposure control; mA and/or kV adjustment per patient size (includes targeted exams where dose is matched to clinical indication); or iterative reconstruction. COMPARISON: CT chest w con* [id number] 01/02/2023 8:05 AM RADIATION DOSE METRICS: Total DLP (mGy-cm): 471.66 FINDINGS: Lungs: Mild bilateral scarring lungs. Pleural spaces: Moderate left effusion. Small right effusion. Heart: Prominent cardiomegaly. Pacemaker. Lymph nodes: Unremarkable. No enlarged lymph nodes. Vasculature: Unremarkable. No aortic aneurysm. Bones/joints: Unremarkable. No acute fracture. Soft tissues: Unremarkable. CT/CT chest con [id number] IMPRESSION: Moderate left effusion. Small right effusion.
[2024-06-24 00:44] LABS: Amphetamines Screen Urine Negative (Negative); Barbiturates Screen Urine Negative (Negative); Benzodiazepines Screen Urine Negative (Negative); Cocaine Screen Urine Negative (Negative); Opiate Screen Urine Negative (Negative); PCP Screen Urine Negative (Negative); THC Screen Urine Positive (Negative)
[2024-06-24 02:06] LABS: ABG PH Result 7.33 (7.35-7.45); Arterial Blood Gas Hematocrit 33.4 % (42-52); Base Excess ABG 14.5 mmol/L (-2.0-2.0); Blood Gas Allen Test Pos; Blood Gas Sample Site Radial, right; Blood Gas Sample Type Arterial; HCO3 ABG 43.6 mmol/L (22-26); PO2 ABG 60.4 mmHg (80.0-100.0)
[2024-06-24 02:07] LABS: Blood Gas Operator Identificat jlb; Oxygen Device BIPAP; PO2 FiO2 Ratio Arterial Blood 215
--- NOTE | 2024-06-24 04:41 | PC.NURSE ---
ER NURSE COMPLETED ASSESSMENT TO THE BEST OF HER ABILITY. NURSE RELAYED MESSAGE TO ICU NURSES.
[2024-06-24] MEDS: HYDROcodone-acetaminophen 5-325 mg Tablet 1 TAB PO (05:37)
[2024-06-24] MEDS: pantoprazole 40 mg SDV IVP (05:40)
[2024-06-24 08:26] LABS: Glucose Point of Care 119 mg/dL (70-110)
[2024-06-24 08:31] LABS: Alanine Aminotransferase 7 U/L (0-41); Albumin Level 3.4 g/dL (3.5-5.2); Alkaline Phosphatase 82 U/L (40-130); Anion Gap 6.2 (5-19); Aspartate Amino Transferase 15 U/L (0-40); Blood Urea Nitrogen 31 mg/dL (8-23); Calcium 10.3 mg/dL (8.5-10.5); Chloride 95 mmol/L (98-107); Creatinine Clr Calc Pharmacy 46.6662; Globulin 2.4 g/dL (1.3-4.6); Glomerular Filtration Rate 37.5 mL/min (90-130); Glucose 99 mg/dL (65-115); Magnesium 1.9 mg/dL (1.7-2.3); Osmolality Calculated 297 mOsm/kg (285-295); Potassium 4.2 mmol/L (3.5-5.1); Sodium 140 mmol/L (136-145); Total Bilirubin 0.3 mg/dL (0.15-1.2); Total Protein 5.8 g/dL (6.6-8.7)
[2024-06-24 08:32] LABS: Lactate Dehydrogenase 149 U/L (135-225)
[2024-06-24] MEDS: albumin 25 G/100 ML BAG 60 G IV (08:37)
[2024-06-24] MEDS: acetaZOLAMIDE 250 mg Tablet 500 MG PO (08:37)
[2024-06-24] MEDS: midodrine 5 mg TABLET 10 MG PO ×3 (08:38→20:24)
[2024-06-24] MEDS: ipratropium-albuterol 3 mL Neb INHALATION ×3 (08:42→19:44)
[2024-06-24] MEDS: budesonide 0.5 mg/2 mL Neb INHALATION ×2 (08:42→19:44)
[2024-06-24 08:43] LABS: INR 0.94 (0.8-1.2)
[2024-06-24] MEDS: lamoTRIgine 100 mg Tablet 200 MG PO (08:43)
[2024-06-24] MEDS: docusate sodium 100 mg Capsule 200 MG PO (08:43)
[2024-06-24] MEDS: lithium carbonate 300 mg Capsule PO (08:43)
[2024-06-24] MEDS: sennosides 8.6 mg Tablet 17.2 MG PO (08:43)
[2024-06-24 08:44] LABS: Partial Thromboplastin Time 25.9 SECONDS (23.9-36.7)
[2024-06-24 08:47] LABS: Carbon Dioxide 43 mmol/L (22-29)
--- NOTE | 2024-06-24 09:02 | P.PN_ITS ---
Subjective 2 Subjective: He is overall feeling better. He does not have cough, no phlegm production. He is now awake and alert. Lucid. He is hungry and requests to eat. Vitals/I&O/Wt Last Vital Signs Temp 97.6 F 06/23/24 21:44 Pulse 60 06/24/24 08:42 Resp 18 06/24/24 08:42 BP 92/65 06/24/24 06:30 Pulse Ox 95 06/24/24 08:42 O2 Del Method Nasal Cannula 06/24/24 08:42 O2 Flow Rate 3 06/24/24 08:42 FiO2 28 06/24/24 02:26 06/23/24 06/24/24 06/24/24 22:59 06:59 14:59 Intake Total 0 / 0 0 / 0 Balance 0 / 0 0 / 0 Weight last 48 hrs Weight 113.398 kg Weight 113.398 kg Weight 113.398 kg Physical Exam 2 Narrative: Accompanied by his Const: COMMON NORMALS: patient oriented x3 and alert GENERAL APPEARANCE: c ooperative ORIENTATION/CONSCIOUSNESS: Yes awake HENMT: COMMON NORMALS: oropharynx normal Neck/C-Spine: COMMON NORMALS: no JVD Resp: AUSCULTATION: wheezes and diminished lung sounds Cardio: COMMON NORMALS: no JVD, regular rhythm, S1 normal heart sound present, S2 normal heart sound present and No murmurs present (Cardio) RHYTHM: regular rhythm HEART SOUNDS: S1 normal heart sound present and S2 normal heart sound present GI: COMMON NORMALS: Normal to inspection, nondistended, normoactive bowel sounds present, Soft to palpation and non-tender PALPATION: Yes Soft to palpation Extremity: COMMON NORMALS: no joint enlargement and no pedal edema Neuro: COMMON NORMALS: patient oriented x3 and moves all extremities S ENSORIUM/ORIENTATION: Yes alert Skin: COMMON NORMALS: no rashes or lesions noted GENERAL SKIN EXAM: no rashes or lesions noted Data 06/23/24 22:04 06/24/24 07:49 Micro: Microbiology 06/23/24 00:00 Blood Culture - Preliminary Blood SPECIMEN COLLECTED 06/23/24 00:00 Blood Culture - Preliminary Blood SPECIMEN COLLECTED A&P Assessment and plan (1) Acute on chronic respiratory failure with hypoxia and hypercapnia: Reviewed repeat ABG, reviewed vitals, CBC, chemistry. He is not awake and alert. On nasal cannula. Undergoing breathing treatment with respiratory therapy. As per discussion, he is not having cough or sputum production. Still wheezing with diminished air entry. He is also having lower extremity edema. As per discussion with nursing, flu/COVID/RSV swab collected. Continue oxygen support. Continue breathing treatments and add IV steroid with Solu-Medrol 30 mg every 8 hours. Monitor for risk of hypertension, hyperglycemia, return/worsening encephalopathy, gastritis. Continue PPI. Reviewed blood glucose. Additionally continue with IV Lasix, albumin, for treatment of acutely decompensated diastolic CHF. Will require continued hospitalization for diuresis with IV diuretics over the next couple of days. Discussed with assistant case manager. Transfer out of ICU. Discussed with nursing. (2) Encephalopathy acute: With improvement with improvement of hypercapnic respiratory acidosis. Weaned off BiPAP. BiPAP onset but as needed. Continue treatment of respiratory failure as above. He awake and alert and reports that he is hungry. Resume oral diet. Plan Jim Carney is a 68yo, [place], with CAD, [place] in 2016, ischemic Cardiomyopathy, chronic HFrEF (EF <30%) s/p PPM/ICD, chronic hypoxic respiratory failure on continuous 3L, COPD, Bipolar I disorder, who presented to the ED on 06/23/2024 w/ altered mental status. He was admitted for #Acute on chronic hypoxic hypercapneic respiratory failure #Acute on chronic HFrEF #Moderate L. pleural effusion and small R. pleural effusion - Started Midodrine scheduled. Lasix q12h + daily acetazolamide. Gave albumin w/ Lasix this AM. Strict Is & Os. Discussed with him and his . He does have significant lower extremity edema, pleural effusion, with decompensated CHF. Treated with IV Lasix, for now would like to proceed with diuresis. Holding off on thoracentesis. With acetazolamide. Monitor for risk of electrolyte imbalance, significant hypokalemia, arrhythmia. Monitor on telemetry. Reassess chemistry. Resume oral diet. #Ischemic Cardiomyopathy s/p PPM/ICD. With decompensated CHF, as above. - Continue Telemetry monitoring. #ROCKY: As suspected in last hospitalization, this may be #Cardiorenal syndrome - Will start diuresis, monitor renal function and strict I's and O's. #COPD: not in exacerbation. Duonebs prn. #CAD, [place] in 2016 #HLD - Held other meds #GERD - IV PPI #Bipolar I disorder - Resumed Lamictal and [place]. #Depression - Held meds. DVT ppx: Lovenox ordered to start tonight. GI ppx: PPI IV Attestations 2 Medical Necessity Statement*: Continue admission for assessment and management of respiratory failure with hypoxia, decompensated diastolic CHF with edema and pleural effusion. and High MDM includes amount and/or complexity of data reviewed/ordered [ resulted lab(s)/test(s), ordered lab(s)/test(s) and other healthcare professional discussion] and described risk of complication, morbidity or mortality of management as documented Diagnoses Acute on chronic respiratory failure with hypoxia and hypercapnia J96.21; J96.22 Encephalopathy acute G93.40
[2024-06-24 10:32] LABS: Basophils % 0.3 %; Eosinophils # 0.1 10^3/uL (0.0-0.8); Hematocrit 34.2 % (37-53); Lymphocytes % 14.9 %; Mean Corpuscular HGB Conc 29.5 g/dL (30-55); Mean Corpuscular Hemoglobin 31.5 pg (27-33); Mean Corpuscular Volume 106.5 fl (82-101); Mean Platelet Volume 11.8 fL (7.4-10.4); Monocytes # 0.6 10^3/uL (0.2-0.9); Monocytes % 8.2 %; Neutrophils # 5.04 10^3/uL (1.8-7.7); Neutrophils % 75.2 %; Nucleated Red Blood Cells % 0 %; Platelet Count 133 10^3/cmm (157-399); Red Blood Count 3.21 10^6/uL (3.85-5.65); Red Cell Distribution Width 13.2 % (12.1-15.1); White Blood Count 6.71 10^3/uL (3.29-11.43)
[2024-06-24 10:58] LABS: Influenza A NEGATIVE (Negative); Influenza B NEGATIVE (Negative); Respiratory Syncytial Virus Ce NEGATIVE (Negative); SARS-CoV-2 PCR NEGATIVE (Negative)
[2024-06-24] MEDS: methylPREDNISolone sod succ 40 mg/mL INJ 30 MG IVP ×2 (11:23→16:26)
[2024-06-24] MEDS: aspirin 81 mg EC Tablet PO (11:24)
--- NOTE | 2024-06-24 18:16 | PC.NURSE ---
Pt unsure if he has had the pneumonia vaccine in the last 5 years. will look at her records this evening and let staff know prior to discharge.
[2024-06-24] MEDS: mirtazapine 30 mg Tablet PO (20:24)
[2024-06-24] MEDS: enoxaparin 40 mg/0.4 mL Syringe SUBCUT (20:25)
[2024-06-24] MEDS: FUROsemide 10 mg/mL SDV 10mL 60 MG IVP (20:25)
[2024-06-25] VITALS (32 sets, daily range): BP systolic 94–143; BP diastolic 63–78; PULSE 59–95; RESP 17–31; TEMP 36.6–36.9; O2SAT 90–98
[2024-06-25] MEDS: ipratropium-albuterol 3 mL Neb INHALATION ×4 (01:42→19:57)
[2024-06-25] MEDS: methylPREDNISolone sod succ 40 mg/mL INJ 30 MG IVP ×2 (03:35→09:10)
--- NOTE | 2024-06-25 03:48 | PC.NURSE ---
Urine output Unable to accurately measure urine output. Patient's emptied urinal once, patient emptied urinal once.
[2024-06-25 04:16] LABS: Hematocrit 34.4 % (37-53); Lymphocytes # 0.5 10^3/uL (0.8-4.8); Lymphocytes % 8.8 %; Mean Corpuscular HGB Conc 29.9 g/dL (30-55); Mean Corpuscular Hemoglobin 31.6 pg (27-33); Mean Corpuscular Volume 105.5 fl (82-101); Mean Platelet Volume 11.5 fL (7.4-10.4); Monocytes # 0.1 10^3/uL (0.2-0.9); Monocytes % 2.3 %; Neutrophils # 5.03 10^3/uL (1.8-7.7); Neutrophils % 88.5 %; Nucleated Red Blood Cells % 0 %; Platelet Count 145 10^3/cmm (157-399); Red Blood Count 3.26 10^6/uL (3.85-5.65); Red Cell Distribution Width 13.2 % (12.1-15.1); White Blood Count 5.68 10^3/uL (3.29-11.43)
[2024-06-25 04:34] LABS: Anion Gap 8.3 (5-19); Blood Urea Nitrogen 32 mg/dL (8-23); Calcium 10.6 mg/dL (8.5-10.5); Chloride 96 mmol/L (98-107); Creatinine Clr Calc Pharmacy 55.9995; Glomerular Filtration Rate 46.3 mL/min (90-130); Glucose 231 mg/dL (65-115); Osmolality Calculated 306 mOsm/kg (285-295); Potassium 4.3 mmol/L (3.5-5.1); Sodium 141 mmol/L (136-145)
[2024-06-25 04:43] LABS: Magnesium 1.8 mg/dL (1.7-2.3)
[2024-06-25 04:49] LABS: Carbon Dioxide 41 mmol/L (22-29)
[2024-06-25] MEDS: pantoprazole 40 mg SDV IVP (06:03)
[2024-06-25] MEDS: budesonide 0.5 mg/2 mL Neb INHALATION ×2 (08:58→19:57)
[2024-06-25] MEDS: FUROsemide 10 mg/mL SDV 10mL 60 MG IVP ×2 (09:10→21:04)
[2024-06-25] MEDS: acetaZOLAMIDE 250 mg Tablet 500 MG PO (09:11)
[2024-06-25] MEDS: aspirin 81 mg EC Tablet PO (09:11)
[2024-06-25] MEDS: atorvastatin 40 mg Tablet PO (09:11)
[2024-06-25] MEDS: doxazosin 4 mg Tablet PO (09:11)
[2024-06-25] MEDS: midodrine 5 mg TABLET 10 MG PO ×3 (09:11→21:03)
[2024-06-25] MEDS: lamoTRIgine 100 mg Tablet 200 MG PO (09:11)
[2024-06-25] MEDS: lithium carbonate 300 mg Capsule PO (09:11)
[2024-06-25] MEDS: sennosides 8.6 mg Tablet 17.2 MG PO (09:11)
[2024-06-25] MEDS: docusate sodium 100 mg Capsule 200 MG PO (09:11)
--- NOTE | 2024-06-25 16:00 | P.PN_ITS ---
Subjective 2 Subjective: He is overall gradually improving. Edema lower extremities is gradually subsiding. Vitals/I&O/Wt Last Vital Signs Temp 98.4 F 06/25/24 10:00 Pulse 63 06/25/24 14:00 Resp 25 H 06/25/24 14:00 BP 116/66 06/25/24 14:00 Pulse Ox 90 06/25/24 14:00 O2 Del Method Nasal Cannula 06/25/24 14:00 O2 Flow Rate 3 06/25/24 14:00 FiO2 28 06/24/24 02:26 06/25/24 06/25/24 06/25/24 06:59 14:59 22:59 Output Total 200 / 1900 700 / 700 Balance -200 / -1500 -700 / -700 Weight last 48 hrs Weight 105.551 kg Weight 113.398 kg Weight 113.398 kg Weight 113.398 kg Physical Exam 2 Narrative: Accompanied by his Const: COMMON NORMALS: patient oriented x3 and alert GENERAL APPEARANCE: c ooperative ORIENTATION/CONSCIOUSNESS: Yes awake HENMT: COMMON NORMALS: oropharynx normal Neck/C-Spine: COMMON NORMALS: no JVD Resp: AUSCULTATION: wheezes and diminished lung sounds Cardio: COMMON NORMALS: no JVD, regular rhythm, S1 normal heart sound present, S2 normal heart sound present and No murmurs present (Cardio) RHYTHM: regular rhythm HEART SOUNDS: S1 normal heart sound present and S2 normal heart sound present GI: COMMON NORMALS: Normal to inspection, nondistended, normoactive bowel sounds present, Soft to palpation and non-tender PALPATION: Yes Soft to palpation Extremity: COMMON NORMALS: no joint enlargement and no pedal edema Neuro: COMMON NORMALS: patient oriented x3 and moves all extremities S ENSORIUM/ORIENTATION: Yes alert Skin: COMMON NORMALS: no rashes or lesions noted GENERAL SKIN EXAM: no rashes or lesions noted Data 06/25/24 03:23 06/25/24 03:23 Micro: Microbiology 06/23/24 00:00 Blood Culture - Preliminary Blood NEGATIVE TO DATE 06/23/24 00:00 Blood Culture - Preliminary Blood NEGATIVE TO DATE A&P Assessment and plan (1) Acute on chronic respiratory failure with hypoxia and hypercapnia: He is gradually improving. He is becoming less dyspneic. Edema is gradually improving. Reviewed vitals, intake and output, he is in negative balance. Reviewed chemistry, potassium, BUN, creatinine, bicarb. Renal function showing improvement. He is maintaining potassium. Magnesium soft at 1.8, requested replacement. Continue diuresis for decompensated CHF. Decrease IV steroid to 15 mg. Continue breathing treatments. Continue oxygen support, wean down as tolerating. Transferred to CCU. Discussed with watch case polisher. He already has oxygen at home. Nursing Review flu/COVID/RSV swab collected. Continue oxygen support. Continue breathing treatments and add IV steroid with Solu-Medrol 30 mg every 8 hours. Monitor for risk of hypertension, hyperglycemia, return/worsening encephalopathy, gastritis. Continue PPI. Reviewed blood glucose. Additionally continue with IV Lasix, albumin, for treatment of acutely decompensated diastolic CHF. Will require continued hospitalization for diuresis with IV diuretics over the next 1-2 days. Discussed with watch case polisher. Transfer out of ICU. (2) Encephalopathy acute: Encephalopathy resolved. With improvement with improvement of hypercapnic respiratory acidosis. Weaned off BiPAP. BiPAP onset but as needed. Continue treatment of respiratory failure as above. He awake and alert and reports that he is hungry. Resume oral diet. Plan Jim Carney is a 68yo, [place], with CAD, [place] in 2016, ischemic Cardiomyopathy, chronic HFrEF (EF <30%) s/p PPM/ICD, chronic hypoxic respiratory failure on continuous 3L, COPD, Bipolar I disorder, who presented to the ED on 06/23/2024 w/ altered mental status. He was admitted for #Acute on chronic hypoxic hypercapneic respiratory failure #Acute on chronic HFrEF #Moderate L. pleural effusion and small R. pleural effusion Reassess chest x-ray in 1-2 days. Continue IV diuresis. Monitor for risk of electro deficiency, ROCKY, volume depletion with IV diuretic. Reassess chemistry. Midodrine scheduled. Lasix q12h + daily acetazolamide. I & Os. Discussed with him and his . He does have significant lower extremity edema, pleural effusion, with decompensated CHF. Treated with IV Lasix, for now would like to proceed with diuresis. Holding off on thoracentesis. With acetazolamide. Monitor for risk of electrolyte imbalance, significant hypokalemia, arrhythmia. Monitor on telemetry. Reassess chemistry. #Ischemic Cardiomyopathy s/p PPM/ICD. With decompensated CHF, as above. - Continue Telemetry monitoring. #ROCKY: As suspected in last hospitalization, this may be #Cardiorenal syndrome - Will start diuresis, monitor renal function and strict I's and O's. #COPD: not in exacerbation. Duonebs prn. #CAD, [place] in 2016 #HLD - Held other meds #GERD - IV PPI #Bipolar I disorder - Resumed Lamictal and [place]. #Depression - Held meds. DVT ppx: Lovenox ordered to start tonight. GI ppx: PPI IV Attestations 2 Medical Necessity Statement*: Continue admission for assessment management of decompensated CHF. and High MDM includes amount and/or complexity of data reviewed/ordered [ resulted lab(s)/test(s), ordered lab(s)/test(s) and other healthcare professional discussion] and described risk of complication, morbidity or mortality of management as documented Diagnoses Acute on chronic respiratory failure with hypoxia and hypercapnia J96.21; J96.22 Encephalopathy acute G93.40
[2024-06-25] MEDS: methylPREDNISolone sod succ 40 mg/mL INJ 15 MG IVP (16:55)
[2024-06-25] MEDS: magnesium sulfate premix 1 GM/100 ML PIGGYBACK IV (16:55)
[2024-06-25] MEDS: zolpidem 5 mg Tablet PO (21:02)
[2024-06-25] MEDS: mirtazapine 30 mg Tablet PO (21:03)
[2024-06-25] MEDS: enoxaparin 40 mg/0.4 mL Syringe SUBCUT (21:04)
--- NOTE | 2024-06-25 23:28 | PC.NURSE ---
Bed alarm Patient provided with education to use his call light if he needs to stand and use the urinal. Patient continues to stand on his own and remove monitoring equipment. Bed alarm placed on patient so that nursing staff can better assist him.
--- NOTE | 2024-06-25 23:29 | PC.NURSE ---
Urine output Patient attempted to use urinal by himself. When trying to place urinal back on bedside table, patient spilled the contents on the floor and cleaned it up with blankets. Unable to accurately measure urine output due to this.
[2024-06-26] VITALS (44 sets, daily range): BP systolic 121–160; BP diastolic 66–93; PULSE 60–117; RESP 16–31; TEMP 36.7–37.7; O2SAT 91–97
[2024-06-26] MEDS: methylPREDNISolone sod succ 40 mg/mL INJ 15 MG IVP ×3 (01:14→17:10)
[2024-06-26 05:55] LABS: Hematocrit 34.8 % (37-53); Lymphocytes # 0.5 10^3/uL (0.8-4.8); Lymphocytes % 5.1 %; Mean Corpuscular HGB Conc 30.2 g/dL (30-55); Mean Corpuscular Hemoglobin 31.8 pg (27-33); Mean Corpuscular Volume 105.5 fl (82-101); Mean Platelet Volume 11.5 fL (7.4-10.4); Monocytes # 0.4 10^3/uL (0.2-0.9); Monocytes % 4.8 %; Neutrophils # 8.17 10^3/uL (1.8-7.7); Neutrophils % 89.4 %; Nucleated Red Blood Cells % 0 %; Platelet Count 166 10^3/cmm (157-399); Red Cell Distribution Width 13.2 % (12.1-15.1); White Blood Count 9.14 10^3/uL (3.29-11.43)
[2024-06-26 06:10] LABS: Anion Gap 7.9 (5-19); Blood Urea Nitrogen 29 mg/dL (8-23); Calcium 10.7 mg/dL (8.5-10.5); Carbon Dioxide 39 mmol/L (22-29); Chloride 96 mmol/L (98-107); Creatinine Clr Calc Pharmacy 62.2674; Glomerular Filtration Rate 54.6 mL/min (90-130); Glucose 207 mg/dL (65-115); Osmolality Calculated 300 mOsm/kg (285-295); Potassium 3.9 mmol/L (3.5-5.1); Sodium 139 mmol/L (136-145)
[2024-06-26] MEDS: pantoprazole 40 mg SDV IVP (06:19)
[2024-06-26 06:22] LABS: Magnesium 2.1 mg/dL (1.7-2.3)
[2024-06-26] MEDS: budesonide 0.5 mg/2 mL Neb INHALATION ×2 (08:18→19:50)
[2024-06-26] MEDS: ipratropium-albuterol 3 mL Neb INHALATION ×3 (08:18→19:50)
[2024-06-26] MEDS: aspirin 81 mg EC Tablet PO (08:50)
[2024-06-26] MEDS: atorvastatin 40 mg Tablet PO (08:50)
[2024-06-26] MEDS: docusate sodium 100 mg Capsule 200 MG PO (08:50)
[2024-06-26] MEDS: sennosides 8.6 mg Tablet 17.2 MG PO (08:50)
[2024-06-26] MEDS: FUROsemide 10 mg/mL SDV 10mL 60 MG IVP ×2 (08:51→20:03)
[2024-06-26] MEDS: lamoTRIgine 100 mg Tablet 200 MG PO (08:51)
[2024-06-26] MEDS: lithium carbonate 300 mg Capsule PO (08:51)
[2024-06-26] MEDS: midodrine 5 mg TABLET 10 MG PO ×2 (08:51→14:05)
[2024-06-26] MEDS: doxazosin 4 mg Tablet PO (08:51)
[2024-06-26] MEDS: acetaZOLAMIDE 250 mg Tablet 500 MG PO (08:51)
--- NOTE | 2024-06-26 08:53 | XR_ITS ---
WS: [id number] Exam: XR chest 1V portable [id number] Date/Time of Exam: 06/26/2024 9:54 AM Reason For Exam: reassess pleural effusions Comparison 06/23/2024. Again noted is mild infiltrate in the LEFT lung base and small LEFT pleural effusion. Very little wayne nge. The heart remains enlarged but unchanged in size. The lungs are fully expanded. Remaining lung f ields are clear. Permanent cardiac pacer superimposes the LEFT chest. The mediastinum is normal in co ntour. Degenerative changes in both shoulders. XR/XR chest 1V portable [id number] IMPRESSION: 1. Mild infiltrate in the LEFT lower lung zone and small LEFT pleural effusion. Very little change since last exam. 2. Cardiac enlargement.
--- NOTE | 2024-06-26 12:35 | PC.SOCIAL ---
IMM Updated Updated pt on IMM. No questions voiced. Provided pt a copy. Initialed, dated, & timed a copy & placed in chart.
[2024-06-26] MEDS: metOLazone 5 MG Tablet PO ×2 (12:45→19:13)
--- NOTE | 2024-06-26 13:11 | P.PN_ITS ---
Documented by User: HERON Cm [email or web address] 06/26/24 15:31 Subjective 2 Subjective: Examined patient at bedside this morning. No acute events overnight. On my exam this morning he is A&O x 4, was moved to a chair. Vitals have been stable. Fasting blood glucose overnight mildly elevated at 207. He is currently on 3 L O2 which is his baseline. Net negative fluid balance 1.0 L. Vitals/I&O/Wt Last Vital Signs Temp 99.6 F 06/26/24 08:00 Pulse 60 06/26/24 12:00 Resp 16 06/26/24 12:00 BP 137/72 06/26/24 12:00 Pulse Ox 94 06/26/24 12:00 O2 Del Method Nasal Cannula 06/26/24 12:00 O2 Flow Rate 3 06/26/24 12:00 FiO2 28 06/24/24 02:26 06/25/24 06/26/24 06/26/24 22:59 06:59 14:59 Intake Total 100 / 100 Output Total 200 / 1325 425 / 1325 1150 / 1150 Balance -100 / -1225 -425 / -1225 -1150 / -1150 Weight last 48 hrs Weight 105.551 kg Weight 105.551 kg Physical Exam 2 Const: COMMON NORMALS: no acute distress and patient oriented x3 Chest: CHEST: Yes Symmetrical chest wall rise Resp: COMMON NORMALS: normal respiratory effort EFFORT & INSPECTION: Yes able to speak in complete sentences AUSCULTATION: crackles Laterality: bilateral and no wheezes Cardio: COMMON NORMALS: regular rate, regular rhythm, S1 normal heart sound present and S2 normal heart sound present RATE: regular rate RHYTHM: r egular rhythm HEART SOUNDS: S1 normal heart sound present and S2 normal heart sound present GI: COMMON NORMALS: Soft to palpation and non-tender INSPECTION: Yes abdominal distension (mild distention ) PALPATION: Yes Soft to palpation Extremity: NARRATIVE EXTREMITY EXAM: 1+ pitting edema over lower extremities up to knees Neuro: COMMON NORMALS: patient oriented x3 Data 06/27/24 04:14 06/27/24 04:14 A&P Assessment and plan (1) Acute on chronic systolic CHF (congestive heart failure), NYHA class 4: Plan #Acute on chronic hypoxic hypercapnic respiratory failure #Ischemic Cardiomyopathy s/p PPM/ICD. With decompensated CHF, as above Today pt is improving but continues to be fluid overloaded with net negative fluid balance of 1L, although suspect less than this given amount of PO fluids at bedside - flu/covid/RSV negative - Continue Lasix 60mg q12 and acetazolamide 500mg daily - Start metolazone 5mg daily - Start 1L fluid restriction - Discontinue midodrine - Cont. solu-medrol 15mg q8 - Will continue to hold off on thoracentesis pending further diuresis - resume entresto at 1/2 tab BID today - consider restarting carvedilol in future, consider Jardiance for GDMT Will monitor for risk of electrolyte imbalance, significant hypokalemia, arrhythmia. Monitor on telemetry. Reassess chemistry. #Moderate L. pleural effusion and small R. pleural effusion - Repeat CXR today without significant improvement. Will continue aggressive diuresis and repeat chest x-ray tomorrow #Acute encephalopathy secondary to hypercapnic respiratory acidosis - resolved - cont. oral diet - continue to monitor #ROCKY - improving - Continue diuresis, monitor renal function and strict I's and O's. #COPD: not in exacerbation. Duonebs prn. #CAD, [place] in 2016 #HLD - Held other meds #GERD - IV PPI #Bipolar I disorder - Resumed Lamictal and [place]. #Depression - Held meds. DVT ppx: Lovenox GI ppx: PPI IV Coding Level of Care Code 37160 Diagnoses Acute on chronic systolic CHF (congestive heart failure), NYHA class 4 I50.23 Documented by User: Garrison Sierra MD 06/27/24 10:53 Data 06/27/24 04:14 06/27/24 04:14 A&P Assessment and plan (1) Acute on chronic systolic CHF (congestive heart failure), NYHA class 4: Attestations 2 Medical Necessity Statement*: Continue admission for assessment and management of decompensated systolic CHF. Other Attestations: Patient independently seen and examined. Agree with findings, assessment and plan as found by Dr. Perera. He is diuresing and gradually losing water weight. In negative balance about 1.7 L last 24 hours. Reviewed vitals, CBC, BMP, magnesium, intake and output. Potassium supplementation as requested. Renal function has shown gradual improvement. Discussed with him we will intensify diuresis at metolazone 2 Lasix. Monitor for risk of electro deficiency, risk of renal dysfunction, hypovolemia. Reassess chemistry, monitor in telemetry. Reassess volume status. Resume Entresto at lower dose, monitor for risk of worsening ROCKY, reassess renal function. As overflow in ICU, continue care on [facility] when bed is available. Discussed with wrapper caser. Discussed with nursing. Additionally reviewed chest x-ray, there is persistence of small left pleural effusion with some reported infiltrate, although he remains without leukocytosis, subjectively feeling well. Afebrile. Will reassess CBC, vitals. Add incentive spirometer. In case of fever, leukocytosis or other suggestions of pneumonia consider addition of antibiotic, thoracentesis. Due to insomnia he request to increase his Ambien dose, increase to 10 mg. Monitor for risk of encephalopathy. and High MDM includes amount and/or complexity of data reviewed/ordered [ resulted lab(s)/test(s), ordered lab(s)/test(s) and other healthcare professional discussion] and described risk of complication, morbidity or mortality of management as documented Diagnoses Acute on chronic systolic CHF (congestive heart failure), NYHA class 4 I50.23
--- NOTE | 2024-06-26 16:58 | SUR.OPER ---
Patient asked this nurse if the doctor could increase their ambien since they could not sleep at night. Doctor was notified.
[2024-06-26] MEDS: sacubitril/valsartan 24-26 mg Tablet 0.5 EACH PO (17:10)
[2024-06-26] MEDS: potassium chloride ER 20 mEq Tablet PO (19:13)
[2024-06-26] MEDS: zolpidem 5 mg Tablet 10 MG PO (20:03)
[2024-06-26] MEDS: mirtazapine 30 mg Tablet PO (20:03)
[2024-06-26] MEDS: enoxaparin 40 mg/0.4 mL Syringe SUBCUT (20:03)
[2024-06-27] VITALS (33 sets, daily range): BP systolic 104–152; BP diastolic 59–94; PULSE 60–97; RESP 6–34; TEMP 36.2–36.7; O2SAT 90–96; BMI 34.0
[2024-06-27 04:41] LABS: Basophils % 0.1 %; Hematocrit 39.2 % (37-53); Lymphocytes # 0.8 10^3/uL (0.8-4.8); Lymphocytes % 7.6 %; Mean Corpuscular HGB Conc 30.4 g/dL (30-55); Mean Corpuscular Hemoglobin 31.1 pg (27-33); Mean Corpuscular Volume 102.3 fl (82-101); Mean Platelet Volume 10.8 fL (7.4-10.4); Monocytes # 1.1 10^3/uL (0.2-0.9); Neutrophils # 8.76 10^3/uL (1.8-7.7); Neutrophils % 81.6 %; Nucleated Red Blood Cells % 0 %; Platelet Count 193 10^3/cmm (157-399); Red Blood Count 3.83 10^6/uL (3.85-5.65); Red Cell Distribution Width 13.2 % (12.1-15.1); White Blood Count 10.73 10^3/uL (3.29-11.43)
[2024-06-27 05:13] LABS: Anion Gap 8.9 (5-19); Blood Urea Nitrogen 30 mg/dL (8-23); Calcium 11.7 mg/dL (8.5-10.5); Carbon Dioxide 40 mmol/L (22-29); Chloride 94 mmol/L (98-107); Creatinine Clr Calc Pharmacy 52.8684; Glomerular Filtration Rate 46.3 mL/min (90-130); Glucose 176 mg/dL (65-115); Magnesium 2.1 mg/dL (1.7-2.3); Osmolality Calculated 298 mOsm/kg (285-295); Potassium 3.9 mmol/L (3.5-5.1); Sodium 139 mmol/L (136-145)
[2024-06-27] MEDS: pantoprazole 40 mg SDV IVP (05:28)
--- NOTE | 2024-06-27 05:30 | PC.NURSE ---
Inaccurate I&Os: Patient was advised to ask nursing staff for assistance when using urinal, patient continued to use urinal on his own resulting in urine on the floor and inaccurate measurement of I&Os.
[2024-06-27] MEDS: metOLazone 5 MG Tablet PO (07:55)
[2024-06-27] MEDS: ipratropium-albuterol 3 mL Neb INHALATION ×2 (07:59→13:21)
[2024-06-27] MEDS: budesonide 0.5 mg/2 mL Neb INHALATION (07:59)
[2024-06-27] MEDS: aspirin 81 mg EC Tablet PO (08:10)
[2024-06-27] MEDS: sacubitril/valsartan 24-26 mg Tablet 0.5 EACH PO ×2 (08:10→17:43)
[2024-06-27] MEDS: docusate sodium 100 mg Capsule 200 MG PO (08:10)
[2024-06-27] MEDS: acetaZOLAMIDE 250 mg Tablet 500 MG PO (08:10)
[2024-06-27] MEDS: FUROsemide 10 mg/mL SDV 10mL 60 MG IVP ×2 (08:10→21:29)
[2024-06-27] MEDS: atorvastatin 40 mg Tablet PO (08:10)
[2024-06-27] MEDS: lamoTRIgine 100 mg Tablet 200 MG PO (08:10)
[2024-06-27] MEDS: sennosides 8.6 mg Tablet 17.2 MG PO (08:10)
[2024-06-27] MEDS: doxazosin 4 mg Tablet PO (08:10)
[2024-06-27] MEDS: lithium carbonate 300 mg Capsule PO (08:10)
--- NOTE | 2024-06-27 14:12 | P.PN_ITS ---
Documented by User: HERON Cm [email or web address] 06/27/24 14:37 Subjective 2 Subjective: No acute events overnight. Negative fluid balance 3.2 L. Currently on baseline O2. Telemetry reviewed and unremarkable. Did did have 3 bowel movements yesterday per patient report. He does not have any concerns today. Vitals/I&O/Wt Last Vital Signs Temp 98.0 F 06/27/24 04:00 Pulse 61 06/27/24 14:00 Resp 29 H 06/27/24 14:00 BP 104/59 06/27/24 14:00 Pulse Ox 95 06/27/24 14:00 O2 Del Method Nasal Cannula 06/27/24 14:00 O2 Flow Rate 3 06/27/24 14:00 FiO2 28 06/24/24 02:26 06/26/24 06/27/24 06/27/24 22:59 06:59 14:59 Intake Total 600 / 600 720 / 720 Output Total 950 / 3825 1375 / 3825 1200 / 1200 Balance -950 / -3225 -775 / -3225 -480 / -480 Weight last 48 hrs Weight 101.321 kg Weight 105.551 kg Physical Exam 2 Const: COMMON NORMALS: no acute distress and patient oriented x3 HENMT: COMMON NORMALS: atraumatic HEAD & SCALP: atraumatic Eye: COMMON NORMALS: EOMs intact bilaterally and conjunctivae normal C ONJUNCTIVA: Yes conjunctivae normal Resp: COMMON NORMALS: normal respiratory effort AUSCULTATION: wheezes (Right sided ) Cardio: COMMON NORMALS: regular rate, regular rhythm, S1 normal heart sound present, S2 normal heart sound present and No murmurs present (Cardio) RATE: regular rate RHYTHM: regular rhythm HEART SOUNDS: S1 normal heart sound present, S2 normal heart sound present and no murmurs GI: COMMON NORMALS: Normal to inspection, nondistended, normoactive bowel sounds present, Soft to palpation and non-tender PALPATION: Yes Soft to palpation and No Tenderness to palpation present (GI) OTHER: Distention improved today Extremity: NARRATIVE EXTREMITY EXAM: Lower extremity edema improved, 1+ pitting edema to mid-calf Neuro: COMMON NORMALS: patient oriented x3 Data 06/27/24 04:14 06/27/24 04:14 A&P Assessment and plan (1) Acute on chronic systolic CHF (congestive heart failure), NYHA class 4: Plan Assessment Patient doing well and achieving good diuresis over the past day, net -3.2 L. Will continue to monitor given his pleural effusions and repeat imaging tomorrow to see if they have improved with diuresis. Okay to move to floor status. Plan #Acute on chronic hypoxic hypercapnic respiratory failure #Ischemic Cardiomyopathy s/p PPM/ICD. With decompensated CHF, as above - flu/covid/RSV negative - Continue Lasix 60mg q12 and acetazolamide 500mg daily -Continue metolazone 5mg daily -Continue 1L fluid restriction - solu-medrol discontinued, respiratory status improving, currently on baseline O2 - Will continue to hold off on thoracentesis pending further diuresis -Continue entresto at 1/2 tab BID today - consider restarting carvedilol in future, consider Jardiance for GDMT Will monitor for risk of electrolyte imbalance, significant hypokalemia, arrhythmia. Monitor on telemetry. Reassess chemistry. #Moderate L. pleural effusion and small R. pleural effusion - Repeat CXR on 06/26 without significant improvement. Will continue aggressive diuresis and repeat chest x-ray tomorrow #Acute encephalopathy secondary to hypercapnic respiratory acidosis - resolved - cont. oral diet - continue to monitor #ROCKY - improving - Continue diuresis, monitor renal function and strict I's and O's. #COPD: not in exacerbation. Duonebs prn. #CAD, [place] in 2016 #HLD - Held other meds #GERD - IV PPI #Bipolar I disorder - Resumed Lamictal and [place]. #Depression - Held meds. DVT ppx: Lovenox GI ppx: PPI IV Coding Level of Care Code 68701 Diagnoses Acute on chronic systolic CHF (congestive heart failure), NYHA class 4 I50.23 Documented by User: Garrison Sierra MD 06/27/24 15:16 Data 06/27/24 04:14 06/27/24 04:14 A&P Assessment and plan (1) Acute on chronic systolic CHF (congestive heart failure), NYHA class 4: Attestations 2 Medical Necessity Statement*: Continue admission for assessment and management of decompensated systolic CHF. Other Attestations: Patient seen and examined by myself, we discussed his condition and plan of care. Findings will assessment and plan by Dr. Perera. He is overall gradually improving with treatment from acutely decompensated systolic CHF. Reviewed vitals, intake and output, CBC, BMP, magnesium. He is in negative balance and had a good response to diuresis with addition of metolazone. Discussed with him he did have slight worsening of renal function today, BUN up to 30, creatinine up to 1.5. Magnesium is doing okay. Will supplement additional potassium. He still has significant bilateral lower extremity diuresis. On review of x-ray history of still persistent pleural effusion. He remains afebrile and without leukocytosis. As per discussion with him we will continue with IV diuresis today, reassess renal function, electrolytes in the morning repeat chemistry monitor for risk of electro depletion, ROCKY. Repeat magnesium. Reassess volume status. Continue to monitor oxygenation. Monitor vitals for any occurrence of fever. Reassess CBC. Will repeat chest x-ray in morning, as per discussion with him in case of still persistent pleural effusion we will pursue thoracentesis. Discussed with disability case manager. Transfer pending out of ICU, as overflow in the unit with lack of beds on [facility]. Nursing. and High MDM includes amount and/or complexity of data reviewed/ordered [ resulted lab(s)/test(s), ordered lab(s)/test(s) and other healthcare professional discussion] and described risk of complication, morbidity or mortality of management as documented Diagnoses Acute on chronic systolic CHF (congestive heart failure), NYHA class 4 I50.23
--- NOTE | 2024-06-27 14:53 | PC.NURSE ---
Report was called to VAISHALI Garcia in C[facility]. Patient was transferred successfully with all belongings.
--- NOTE | 2024-06-27 15:21 | PC.NURSE ---
received from icu at 1445 in to room 108.report received.pt is alert and awake and oriented x 4.denies pain at present.v-paced on monitor.no edema noted.large ascitic abd noted.o2 2l/nc on.vss.oriented to room environment.instructed to notify staff for any pain,sob,or for any concerns at all.pt verb understanding of instructions.
[2024-06-27] MEDS: potassium chloride ER 20 mEq Tablet PO (16:45)
[2024-06-27] MEDS: HYDROcodone-acetaminophen 5-325 mg Tablet 1 TAB PO (19:58)
[2024-06-27] MEDS: enoxaparin 40 mg/0.4 mL Syringe SUBCUT (21:28)
[2024-06-27] MEDS: mirtazapine 30 mg Tablet PO (21:29)
[2024-06-27] MEDS: zolpidem 5 mg Tablet 10 MG PO (21:29)
[2024-06-28] VITALS (81 sets, daily range): BP systolic 62–127; BP diastolic 33–88; PULSE 60–91; RESP 0–34; TEMP 36.4–37; O2SAT 73–98
--- NOTE | 2024-06-28 04:30 | PC.NURSE ---
Educated patient numerous time on importance of using urinal to measure output. Patient is still voiding in toilet or flushes urinal after using it. Educated patient again on voiding in urinal and letting nurse know so that this nurse can measure output as he his getting diuretics and needs to be monitored. Also educated patient numerous times to not pull of telemtry monitor and SPo2 cables but patient is still taking them off frequently.
[2024-06-28 05:40] LABS: Basophils % 0.1 %; Eosinophils # 0.1 10^3/uL (0.0-0.8); Eosinophils % 0.5 %; Hematocrit 43.2 % (37-53); Lymphocytes # 1.7 10^3/uL (0.8-4.8); Lymphocytes % 15.4 %; Mean Corpuscular Hemoglobin 31.5 pg (27-33); Mean Corpuscular Volume 101.6 fl (82-101); Mean Platelet Volume 11.1 fL (7.4-10.4); Monocytes # 1.4 10^3/uL (0.2-0.9); Monocytes % 12.4 %; Neutrophils # 7.76 10^3/uL (1.8-7.7); Neutrophils % 71.1 %; Nucleated Red Blood Cells % 0 %; Platelet Count 221 10^3/cmm (157-399); Red Blood Count 4.25 10^6/uL (3.85-5.65); Red Cell Distribution Width 13.3 % (12.1-15.1); White Blood Count 10.91 10^3/uL (3.29-11.43)
--- NOTE | 2024-06-28 06:00 | XRR_ITS ---
PROCEDURE INFORMATION: Exam: XR Chest Exam date and time: 06/28/2024 4:08 AM Age: 68 years old Clinical indication: Cough and shortness of breath; Prior surgery; Surgery date: 6+ months; Surgery type: Pacemaker; Additional info: Reassess effusion TECHNIQUE: Imaging protocol: Radiologic exam of the chest. Views: 1 view. COMPARISON: CR XR chest 1V portable [id number] 06/26/2024 9:57 AM FINDINGS: Tubes, catheters and devices: Three lead cardiac pacer device is seen, stable. Lungs: Interval improvement in the bilateral lung base aeration with residual left basilar atelectasis. Pleural spaces: Stable to slightly improved left pleural effusion. Heart/Mediastinum: Cardiomegaly. Bones/joints: Diffuse degenerative change of the visualized osseous structures. XR/XR chest 1V portable [id number] IMPRESSION: Interval improvement in aeration of the bilateral lung bases with residual yet slightly improved left pleural effusion and left basilar atelectasis.
[2024-06-28] MEDS: pantoprazole 40 mg SDV IVP (06:47)
--- NOTE | 2024-06-28 07:34 | US_ITS ---
WS: [id number] Ultrasound chest, bilateral. HISTORY: Evaluate for pleural effusions. HISTORY: Possible pleural effusions. Both pleural spaces are evaluated by ultrasound. No pleural fluid is identified on either side. US/US chest [id number] IMPRESSION: No bilateral pleural effusions.
[2024-06-28] MEDS: budesonide 0.5 mg/2 mL Neb INHALATION ×2 (07:57→20:32)
[2024-06-28] MEDS: ipratropium-albuterol 3 mL Neb INHALATION ×2 (07:57→20:32)
[2024-06-28] MEDS: doxazosin 4 mg Tablet PO (08:07)
[2024-06-28] MEDS: sennosides 8.6 mg Tablet 17.2 MG PO (08:07)
[2024-06-28] MEDS: acetaZOLAMIDE 250 mg Tablet 500 MG PO (08:07)
[2024-06-28] MEDS: metOLazone 5 MG Tablet PO (08:07)
[2024-06-28] MEDS: atorvastatin 40 mg Tablet PO (08:07)
[2024-06-28] MEDS: lamoTRIgine 100 mg Tablet 200 MG PO (08:07)
[2024-06-28] MEDS: aspirin 81 mg EC Tablet PO (08:07)
[2024-06-28] MEDS: sacubitril/valsartan 24-26 mg Tablet 0.5 EACH PO (08:07)
[2024-06-28] MEDS: lithium carbonate 300 mg Capsule PO (08:07)
[2024-06-28] MEDS: docusate sodium 100 mg Capsule 200 MG PO (08:08)
[2024-06-28] MEDS: FUROsemide 10 mg/mL SDV 10mL 60 MG IVP (08:08)
[2024-06-28] MEDS: ondansetron 4 MG Tablet PO (09:50)
--- NOTE | 2024-06-28 10:46 | PM.DCS ---
Discharge Providers Date of Admission: 06/24/24 00:09 Date of Discharge: June 28, 2024 Attending Provider at Admission: Sophie Marks MD Attending Provider at Discharge: Garrison Sierra Primary Care Provider: Chanell Lee MD Diagnoses at Discharge Discharge Diagnosis (1) Acute on chronic systolic CHF (congestive heart failure), NYHA class 4: Status: Acute Reason for Visit Reason for Visit: AMS Hospital Course Hospital Course Jim Carney is a 68yo, [place], with CAD, [place] in 2016, ischemic Cardiomyopathy, chronic HFrEF (EF <30%) s/p PPM/ICD, chronic hypoxic respiratory failure on continuous 3L, COPD, Bipolar I disorder, who presented to the ED on 06/23/2024 w/ altered mental status. He was admitted for acute on chronic hypoxic hypercapneic respiratory failure, acute on chronic HFrEF, and moderate L. pleural effusion and small R. pleural effusion.Patient was diuresed with IV Lasix and metolazone with good urine output and resolution of his respiratory symptoms. He is now back to his baseline O2 requirement of 3 L. Discharge Data Studies Completed and Pending Completed Studies During Hospitalization Category Date Time Status CT chest wo con [id number] Stat Cat Scan 06/24/24 00:[address] head wo con* [id number] Stat Cat Scan 06/23/24 21:53 Completed XR chest 1V portable [id number] Routine Exams 06/26/24 08:53 Completed XR chest 1V portable [id number] Routine Exams 06/28/24 06:00 Completed XR chest 1V portable [id number] Stat Exams 06/23/24 21:53 [place] chest [id number] Routine Ultrasound 06/28/24 07:34 Completed Pending at discharge Category Date Time Status Blood Culture Stat Lab 06/23/24 23:27 Results Complete Blood Count w/Auto AM LABS Lab 06/29/24 04:00 Ordered Radiology Impressions Head CT 06/23/24 21:53 IMPRESSION: Chronic findings as described. Chest CT 06/24/24 00:31 IMPRESSION: Moderate left effusion. Small right effusion. Chest X-Ray 06/28/24 06:00 IMPRESSION: Interval improvement in aeration of the bilateral lung bases with residual yet slightly improved left pleural effusion and left basilar atelectasis. Chest Ultrasound 06/28/24 07:34 IMPRESSION: No bilateral pleural effusions. Laboratory Results WBC 10.91 10^3/uL (3.29-11.43) 06/28/24 04:22 RBC 4.25 10^6/uL (3.85-5.65) 06/28/24 04:22 Hgb 13.40 g/dL (11.27-16.99) 06/28/24 04:22 Hct 43.2 % (37-53) 06/28/24 04:22 MCV 101.6 fl (82-101) H 06/28/24 04:22 MCH 31.5 pg (27-33) 06/28/24 04:22 MCHC 31.0 g/dL (30-55) 06/28/24 04:22 RDW 13.3 % (12.1-15.1) 06/28/24 04:22 Plt Count 221 10^3/cmm (157-399) 06/28/24 04:22 MPV 11.1 fL (7.4-10.4) H 06/28/24 04:22 Neut % (Auto) 71.1 % 06/28/24 04:22 Lymph % (Auto) 15.4 % 06/28/24 04:22 [place] % (Auto) 12.4 % 06/28/24 04:22 Eos % (Auto) 0.5 % 06/28/24 04:22 Baso % (Auto) 0.1 % 06/28/24 04:22 Neut # (Auto) 7.76 10^3/uL (1.8-7.7) H 06/28/24 04:22 Lymph # (Auto) 1.7 10^3/uL (0.8-4.8) 06/28/24 04:22 [place] # (Auto) 1.4 10^3/uL (0.2-0.9) H 06/28/24 04:22 Eos # (Auto) 0.1 10^3/uL (0.0-0.8) 06/28/24 04:22 Baso # (Auto) 0.0 10^3/uL (0.0-0.1) 06/28/24 04:22 Nucleated RBC % (auto) 0 % 06/28/24 04:22 Nucleated RBCs # 0.0 /100WBC 06/28/24 04:22 PT 13.30 SECONDS (12.1-14.9) 06/24/24 07:49 INR 0.94 (0.8-1.2) 06/24/24 07:49 APTT 25.9 SECONDS (23.9-36.7) 06/24/24 07:49 Specimen Type Arterial 06/24/24 02:00 Sample Site Radial, right 06/24/24 02:00 ABG pH 7.33 (7.35-7.45) L 06/24/24 02:00 ABG pCO2 83.0 mmHg (35-45) H* 06/24/24 02:00 ABG pO2 60.4 mmHg (80.0-100.0) L 06/24/24 02:00 ABG PO2/FiO2 Ratio 215 06/24/24 02:00 ABG HCO3 43.6 mmol/L (22-26) H 06/24/24 02:00 ABG Base Excess 14.5 mmol/L (-2.0-2.0) H 06/24/24 02:00 Obed Test Pos 06/24/24 02:00 Hematocrit 33.4 % (42-52) L 06/24/24 02:00 O2 Delivery Device Bipap 06/24/24 02:00 O2 Liters/Min 2.0 % 06/23/24 23:03 FiO2 28.0 % 06/24/24 02:00 Consumer Insights Intern ID [email or web address] 06/24/24 02:00 Sodium 139 mmol/L (136-145) 06/27/24 04:14 Potassium 3.9 mmol/L (3.5-5.1) 06/27/24 04:14 Chloride 94 mmol/L (98-107) L 06/27/24 04:14 Carbon Dioxide 40 mmol/L (22-29) H 06/27/24 04:14 Anion Gap 8.9 (5-19) 06/27/24 04:14 BUN 30 mg/dL (8-23) H 06/27/24 04:14 Creatinine 1.5 mg/dL (0.7-1.2) H 06/27/24 04:14 GFR Calculation 46.3 mL/min (90-130) L 06/27/24 04:14 Glucose 176 mg/dL (65-115) H 06/27/24 04:14 POC Glucose 119 mg/dL (70-110) H 06/24/24 07:57 Calculated Osmolality 298 mOsm/kg (285-295) H 06/27/24 04:14 Lactic Acid 0.6 mmol/L (0.5-2.2) 06/23/24 22:04 Calcium 11.7 mg/dL (8.5-10.5) H 06/27/24 04:14 Phosphorus 4.5 mg/dL (2.5-4.5) 06/23/24 22:04 Magnesium 2.1 mg/dL (1.7-2.3) 06/27/24 04:14 Total Bilirubin 0.3 mg/dL (0.15-1.2) 06/24/24 07:49 AST 15 U/L (0-40) 06/24/24 07:49 ALT 7 U/L (0-41) 06/24/24 07:49 Alkaline Phosphatase 82 U/L (40-130) 06/24/24 07:49 Lactate Dehydrogenase 149 U/L (135-225) 06/24/24 07:49 NT-Pro-B Natriuret Pep 1225 pg/mL (0-125) H 06/23/24 22:04 Total Protein 5.8 g/dL (6.6-8.7) L 06/24/24 07:49 Albumin 3.4 g/dL (3.5-5.2) L 06/24/24 07:49 Globulin 2.4 g/dL (1.3-4.6) 06/24/24 07:49 TSH 0.93 uIU/mL (0.27-4.20) 06/23/24 22:04 Urine Color Yellow (Yellow) 06/23/24 22:36 Urine Appearance Clear (CLEAR) 06/23/24 22:36 Urine pH 5.0 (5-7) 06/23/24 22:36 Ur Specific [place] 1.019 (1.005-1.030) 06/23/24 22:36 Urine Protein Trace (Negative) A 06/23/24 22:36 Urine Glucose (UA) Negative (Normal) 06/23/24 22:36 Urine Ketones Negative (Negative) 06/23/24 22:36 Urine Blood Negative (Negative) 06/23/24 22:36 Urine Nitrate Negative (Negative) 06/23/24 22:36 Urine Bilirubin Negative (Negative) 06/23/24 22:36 Urine Urobilinogen 0.2 mg/dL (Negative) 06/23/24 22:36 Ur Leukocyte Esterase Trace (Negative) A 06/23/24 22:36 Urine RBC 0-2 /hpf (0-2) 06/23/24 22:36 Urine WBC 0-5 /hpf (0-5) 06/23/24 22:36 Ur Squamous Epith Cells 0-5 /hpf (0-5) 06/23/24 22:36 Amorphous Sediment Not Reportable 06/23/24 22:36 Urine Bacteria None seen /hpf (NONE) 06/23/24 22:36 Hyaline Casts 36.80 /lpf 06/23/24 22:36 Urine Opiates Screen Negative ng/mL (Negative) 06/23/24 22:36 Ur Barbiturates Screen Negative ng/mL (Negative) 06/23/24 22:36 Ur Phencyclidine Scrn Negative ng/mL (Negative) 06/23/24 22:36 Ur Amphetamines Screen Negative ng/mL (Negative) 06/23/24 22:36 U Benzodiazepines Scrn Negative ng/mL (Negative) 06/23/24 22:36 Urine Cocaine Screen Negative ng/mL (Negative) 06/23/24 22:36 U Marijuana (THC) Screen Positive ng/mL (Negative) H 06/23/24 22:36 Coronavirus (PCR) Negative (Negative) 06/24/24 08:30 Influenza A (PCR) Negative (Negative) 06/24/24 08:30 Influenza Type B (PCR) Negative (Negative) 06/24/24 08:30 RSV (PCR) Negative (Negative) 06/24/24 08:30 Vitals Last Vital Signs Temp 97.7 F 06/28/24 07:46 Pulse 60 06/28/24 08:00 Resp 16 06/28/24 08:00 BP 102/70 06/28/24 07:46 Pulse Ox 96 06/28/24 07:59 O2 Del Method Nasal Cannula 06/28/24 07:59 O2 Flow Rate 3 06/28/24 07:59 FiO2 28 06/24/24 02:26 Discharge Plan Discharge Patient Disposition: Home Condition: Stable Prescriptions: Continued lamotrigine 200 mg tablet 200 mg PO DAILY pantoprazole 40 mg tablet,delayed release (DR/EC) 40 mg PO DAILY doxazosin 8 mg tablet 4 mg PO DAILY atorvastatin 80 mg tablet 80 mg PO DAILY gabapentin 300 mg capsule 300 mg PO TID aspirin [Adult Low Dose Aspirin] 81 mg tablet,delayed release (DR/EC) 81 mg PO DAILY Qty: 90 3RF carvedilol 25 mg tablet 12.5 mg PO DAILY Rx Instructions: must administer with a meal/food lithium carbonate 300 mg capsule 300 mg PO DAILY mecobalamin (vitamin B12) 1,000 mcg tablet,chewable 1,000 mcg PO DAILY cholecalciferol (vitamin D3) 50 mcg (2,000 unit) capsule 50 mcg PO DAILY melatonin 10 mg capsule 10 mg PO DAILY furosemide 40 mg tablet 40 mg PO DIRECTED Qty: 135 3RF Rx Instructions: Take 40mg (1tab) in the AM and 20mg (1/2 tab) in the afternoon methocarbamol 500 mg Tablet 500 mg PO Q12H PRN (Reason: muscle spasms) guaifenesin [Mucinex] 600 mg Tablet Extended Release 12hr 600 mg PO BID albuterol sulfate 90 mcg/actuation HFA aerosol inhaler 2 puff INHALATION Q6H PRN (Reason: Shortness Of Breath) 30 Days Qty: 30 0RF sacubitril-valsartan [Entresto] 24-26 mg tablet 1 tab PO BID acetaminophen [Tylenol Extra Strength] 500 mg Tablet 1,000 mg PO Q6H PRN (Reason: Fever Or Pain) quetiapine 100 mg Tablet 50 - 100 mg PO BEDTIME PRN (Reason: DEPRESSION) mirtazapine 30 mg Tablet 30 mg PO BEDTIME Discontinued ibuprofen [Advil] 200 mg Tablet 800 mg PO Q6H PRN (Reason: Fever Or Pain) Discharge Orders: Discharge Order (Routine); Ordered 06/28/24 Ordered By: Garrison Sierra Referrals: Chanell Lee MD [Primary Care Provider] - 07/02/24 9:30 am Laila Armando FNP [Nurse Practitioner] - 07/08/24 2:30 pm (CHF) Discharge Diet: Usual diet Discharge Activity: Resume usual activity and Oxygen as instructed Patient Instructions: Altered Mental Status (ED), Chronic Respiratory Failure (DC), CHF Stoplight, Opioid Safety Activity Restrictions/Additional Instructions: Please follow up with your primary care doctor in 4-7 days to make sure your breathing and fluid in your lungs are still stable. Coding Level of Care Code Acute Code for Chg Fwd Diagnoses Acute on chronic systolic CHF (congestive heart failure), NYHA class 4 I50.23
[2024-06-28] MEDS: albumin 50 G/200 ML BAG 60 G IV ×2 (12:03→16:04)
[2024-06-28] MEDS: sodium chloride 0.9% 500 ML 999 ML IV (15:28)
--- NOTE | 2024-06-28 15:55 | PC.SOCIAL ---
IMM updated IMM dated and initialed and placed in chart and copy given to patient
--- NOTE | 2024-06-28 16:16 | P.PN_ITS ---
Documented by User: Traci Donaldjose manuelHERON STDNT 06/28/24 16:21 Subjective 2 Subjective: No acute events overnight. Net -1.2 L. 1 bowel movement. Vitals have been stable until he developed hypotension this afternoon. He does not have any concerns and has been asymptomatic. Denies pain, lightheadedness. Eager to go home. Vitals/I&O/Wt Last Vital Signs Temp 97.5 F L 06/28/24 12:00 Pulse 72 06/28/24 12:00 Resp 16 06/28/24 08:00 BP 76/52 06/28/24 12:00 Pulse Ox 96 06/28/24 07:59 O2 Del Method Nasal Cannula 06/28/24 07:59 O2 Flow Rate 3 06/28/24 07:59 FiO2 28 06/24/24 02:26 06/28/24 06/28/24 06/28/24 06:59 14:59 22:59 Intake Total 250 / 1210 120 / 820 700 / 820 Output Total 150 / 2425 Balance 100 / -1215 120 / 820 700 / 820 Weight last 48 hrs Weight 97.5 kg Weight 101.321 kg Physical Exam 2 Const: COMMON NORMALS: no acute distress, patient oriented x3 and alert G ENERAL APPEARANCE: cooperative and comfortable HENMT: COMMON NORMALS: normocephalic and atraumatic HEAD & SCALP: n ormocephalic and atraumatic Eye: COMMON NORMALS: EOMs intact bilaterally and conjunctivae normal C ONJUNCTIVA: Yes conjunctivae normal Resp: COMMON NORMALS: normal respiratory effort and clear to auscultation bilaterally EFFORT & INSPECTION: Yes able to speak in complete sentences A USCULTATION: clear to auscultation bilaterally, no crackles, no wheezes and lung sounds not diminished Cardio: COMMON NORMALS: regular rate, regular rhythm, S1 normal heart sound present, S2 normal heart sound present and No murmurs present (Cardio) RATE: regular rate RHYTHM: regular rhythm HEART SOUNDS: S1 normal heart sound present and S2 normal heart sound present OTHER: Trace edema present over the lower extremities. Neuro: COMMON NORMALS: patient oriented x3 SENSORIUM/ORIENTATION: Yes alert Data 06/28/24 04:22 06/27/24 04:14 A&P Assessment and plan (1) Acute on chronic systolic CHF (congestive heart failure), NYHA class 4: (2) Shock: Plan Assessment Patient with excellent diuresis over the past day. However the patient developed hypotension this afternoon after receiving his medications including Entresto. Patient given 2 doses of albumin and 500 cc bolus with persistently low BPs with MAPs in 50s so he was moved back to the ICU for closer monitoring. Most likely secondary to his diuresis and intolerance to his GDMT. Lung ultrasound completed today showed no pleural effusions. Plan #Acute on chronic hypoxic hypercapnic respiratory failure #Ischemic Cardiomyopathy s/p PPM/ICD. With decompensated CHF, as above - flu/covid/RSV negative - solu-medrol discontinued, respiratory status improving, currently on baseline O2 ?Holding diuresis and Entresto Will monitor for risk of electrolyte imbalance, significant hypokalemia, arrhythmia. Monitor on telemetry. Reassess chemistry. #Moderate L. pleural effusion and small R. pleural effusion?now resolved #Acute encephalopathy secondary to hypercapnic respiratory acidosis - resolved - cont. oral diet - continue to monitor #ROCKY - improving -Will continue to monitor renal function and strict I's and O's. #COPD: not in exacerbation. Duonebs prn. #CAD, CT in 2016 #HLD - Held other meds #GERD - IV PPI #Bipolar I disorder - Resumed Lamictal and Milfay. #Depression - Held meds. DVT ppx: Lovenox GI ppx: PPI IV Coding Level of Care Code 15339 Diagnoses Acute on chronic systolic CHF (congestive heart failure), NYHA class 4 I50.23 Shock R57.9 Documented by User: Garrison Sierra MD 06/28/24 17:04 Data 06/28/24 04:22 06/27/24 04:14 A&P Assessment and plan (1) Acute on chronic systolic CHF (congestive heart failure), NYHA class 4: (2) Shock: Attestations 2 Medical Necessity Statement*: Continue admission for assessment management of CHF, shock initially with underlying severe cardiomyopathy. Other Attestations: Patient seen and examined independently and findings and assessment and plan also discussed with medical program specialist Dr. Perera. This morning he was doing well, feeling much better, maintaining oxygenation at or slightly below baseline oxygen requirement, with significant improvement in lower extremity edema. In negative balance. Chest ultrasound obtained and pleural effusion reported resolved. Feeling ready to return home. Discharge was being prepared, however, in the afternoon blood pressure is noted decreasing, with MAP dipping down to the 50s. Otherwise asymptomatic, without chest pain pressure, shortness of breath, or other new developments. Given albumin 25%, 50 g, small bolus 500 mL NS for hypovolemic shock. Albumin repeated with response on reassessment. Reassessed for risk of fluid overload. But blood pressure still with fluctuation, currently MAP 63, although just before blood pressure down as low as 60/40. Transfer placed to intensive care unit. Completing additional albumin infusion, requesting Levophed and NICOM assessment to assess responsiveness to further fluid resuscitation. Reviewed vitals, intake, CBC. Repeat chemistry and blood counts. Received half dose Entresto earlier today. Holding medication entirely at current time. Also hold doxazosin, diuretics. Diagnoses Acute on chronic systolic CHF (congestive heart failure), NYHA class 4 I50.23 Shock R57.9
[2024-06-28] MEDS: norepinephrine 4 MG/250 ML BAG 7.5 MG IV (17:05)
--- NOTE | 2024-06-28 17:08 | PC.NURSE ---
Patient was ready for discharge. Blood pressure was checked and patient was found to be hypotensive, asymptomatic. Physician notified. Orders received. Patient continued to remain hypotensive despite albumin 50g and 500cc fluid bolus. Patient has become more lethargic throughout the day. Still arousable but very tired. Physician aware. Patient will be transferred to ICU pending bed assignment. Orders received to initiate Levophed, orders completed nurse will continue to monitor patient until transferred.
--- NOTE | 2024-06-28 20:29 | PC.NURSE ---
2020- Report given to Romy TOM and patient transfered to ICU on levophed drip at 14 mcg/min. All belongings sent with patient and .
[2024-06-28] MEDS: zolpidem 5 mg Tablet 10 MG PO (21:34)
[2024-06-28] MEDS: enoxaparin 40 mg/0.4 mL Syringe SUBCUT (21:34)
[2024-06-28] MEDS: mirtazapine 30 mg Tablet PO (21:34)
[2024-06-28] MEDS: norepinephrine 4 MG/250 ML BAG 52.5 MG IV (22:45)
[2024-06-29] VITALS (105 sets, daily range): BP systolic 74–136; BP diastolic 37–93; PULSE 59–105; RESP 0–66; TEMP 36.3–37.2; O2SAT 87–100
[2024-06-29] MEDS: norepinephrine 4 MG/250 ML BAG 67.5 MG IV ×4 (02:31→13:03)
[2024-06-29] MEDS: ipratropium-albuterol 3 mL Neb INHALATION ×4 (03:10→20:17)
[2024-06-29] MEDS: pantoprazole 40 mg SDV IVP (05:16)
[2024-06-29 05:37] LABS: Basophils % 0.2 %; Eosinophils # 0.2 10^3/uL (0.0-0.8); Eosinophils % 1.6 %; Hematocrit 43.1 % (37-53); Lymphocytes # 1.7 10^3/uL (0.8-4.8); Lymphocytes % 14.7 %; Mean Corpuscular HGB Conc 29.9 g/dL (30-55); Mean Corpuscular Hemoglobin 31.9 pg (27-33); Mean Corpuscular Volume 106.7 fl (82-101); Mean Platelet Volume 10.4 fL (7.4-10.4); Monocytes # 1.2 10^3/uL (0.2-0.9); Monocytes % 10.6 %; Neutrophils # 8.27 10^3/uL (1.8-7.7); Neutrophils % 72.3 %; Nucleated Red Blood Cells % 0 %; Platelet Count 224 10^3/cmm (157-399); Red Blood Count 4.04 10^6/uL (3.85-5.65); Red Cell Distribution Width 13.4 % (12.1-15.1); White Blood Count 11.43 10^3/uL (3.29-11.43)
[2024-06-29 05:51] LABS: Alanine Aminotransferase 10 U/L (0-41); Albumin Level 4.5 g/dL (3.5-5.2); Alkaline Phosphatase 78 U/L (40-130); Anion Gap 9.4 (5-19); Aspartate Amino Transferase 12 U/L (0-40); Blood Urea Nitrogen 41 mg/dL (8-23); Calcium 10.7 mg/dL (8.5-10.5); Carbon Dioxide 39 mmol/L (22-29); Chloride 87 mmol/L (98-107); Creatinine Clr Calc Pharmacy 25.1022; Globulin 1.9 g/dL (1.3-4.6); Glucose 222 mg/dL (65-115); Osmolality Calculated 291 mOsm/kg (285-295); Potassium 3.4 mmol/L (3.5-5.1); Sodium 132 mmol/L (136-145); Total Bilirubin 0.8 mg/dL (0.15-1.2); Total Protein 6.4 g/dL (6.6-8.7)
[2024-06-29] MEDS: budesonide 0.5 mg/2 mL Neb INHALATION ×2 (08:57→20:17)
--- NOTE | 2024-06-29 09:13 | USR_ITS ---
PROCEDURE INFORMATION: Exam: US Retroperitoneal, Complete, Kidneys and Bladder Exam date and time: 06/29/2024 4:36 PM Age: 68 years old Clinical indication: Condition or disease; Other: Jass TECHNIQUE: Imaging protocol: Real-time ultrasound of the retroperitoneum with image documentation. Complete exam focused on the bilateral kidneys and urinary bladder. COMPARISON[place] [id number] 06/29/2024 11:33 AM FINDINGS: Right kidney: Normal. No stones. No hydronephrosis. Simple 1.6 centimeters anechoic inter pole cyst. Left kidney: Normal. No stones. No hydronephrosis. Urinary bladder: A balloon bladder catheter is present. US/US renal BI* [id number] IMPRESSION: 1. Bilateral kidney cysts. 2. No hydronephrosis.
[2024-06-29] MEDS: atorvastatin 40 mg Tablet PO (09:22)
[2024-06-29] MEDS: aspirin 81 mg EC Tablet PO (09:22)
[2024-06-29] MEDS: lithium carbonate 300 mg Capsule PO (09:22)
[2024-06-29] MEDS: lamoTRIgine 100 mg Tablet 200 MG PO (09:22)
[2024-06-29] MEDS: docusate sodium 100 mg Capsule 200 MG PO (09:22)
[2024-06-29] MEDS: sennosides 8.6 mg Tablet 17.2 MG PO (09:22)
--- NOTE | 2024-06-29 09:59 | ECG_ITS ---
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 Measurements Intervals [place] Rate: 59 P: 0 [place]: 0 QRS: 218 QRSD: 213 T: 85 QT: 465 QTc: 464 Interpretive Statements ELECTRONIC VENTRICULAR PACEMAKER Compared to ECG 06/23/2024 23:18:38 No significant changes Electronically Signed On 06-29-2024 13:16:39 CENTRAL OFFICE REPAIRER by Terry Jean M.D. [email or web address]
--- NOTE | 2024-06-29 10:08 | USCV_ITS ---
Jim Carney Age: 68 Gender: M : 1955 Exam Date: 06/29/2024 16:50 Ordering Phys: Neptali Dsouza MD Technologist: Hemanth Colón Exam Location: [facility] [place] Indication: nstemi BP: 114 / 62 HR: 60 Rhythm: Sinus Technical Quality: Adequate MEASUREMENTS (Male / Female) Normal Values 2D ECHO LV Diastolic Diameter PLAX 6.9 cm 4.2 - 5.9 / 3.9 - 5.3 cm IVS Diastolic Thickness 1.1 cm 0.6 - 1.0 / 0.6 - 0.9 cm IVS Systolic Thickness 1.3 cm LVPW Diastolic Thickness 1.7 cm 0.6 - 1.0 / 0.6 - 0.9 cm LVPW Systolic Thickness 1.8 cm LVOT Diameter 2.1 cm LV Ejection Fraction 2D Teich 28.9 % LV Ejection Fraction MOD 4C 31.4 % LV Ejection Fraction MOD 2C 31.0 % LV Ejection Fraction 2C AL 29.4 % LA Diameter 4.6 cm RA Systolic Volume 4C AL 47.9 ml RA Systolic Volume 4C MOD 49.4 ml LA Sys Volume AL 89.9 cm cubed LA Sys Volume Index AL 41.0 cm cubed/m squared Aorta at Sinotubular Diameter 2.3 cm IVC Diameter 1.6 cm M-MODE LA Ao Ratio MM 1.4 AV Cusp Separation MM 2.0 cm DOPPLER AV Peak Velocity 227.7 cm/s LVOT Peak Velocity 90.0 cm/s AV Area Cont Eq vti 1.1 cm squared AV Area Cont Eq pk 1.3 cm squared MV Peak Velocity 104.0 cm/s MV Area PHT 3.9 cm squared Mitral E to A Ratio 1.4 TV Peak Velocity 241.5 cm/s TR Peak Velocity 321.0 cm/s TR Peak Gradient 41.2 mmHg TR Mean Velocity 264.0 cm/s TR Mean Gradient 29.9 mmHg TR Velocity Time Integral 57.6 cm PV Peak Velocity 153.0 cm/s RV Ejection Time 0.2 s FINDINGS Left Ventricle Left ventricle is severely dilated. LV systolic function is severely reduced with EF of 25-30%. Severe global hypokinesis. Right Ventricle Normal in size and function Right Atrium Normal in size Left Atrium Normal in size Mitral Valve Mild mitral annular calcification. Mild mitral regurgitation. Aortic Valve Grossly normal. Mild aortic stenosis with BELEN of 1.15 cm2 and maen gradient across valve of 9mmHg Tricuspid Valve Mild tricuspid regurgitation. RVSP is 40-45mmHg. This is consistent with mild pulmonic hypertension Pulmonic Valve Not well visualized Pericardium Normal Aorta Normal in size IVC Appears to be normal CONCLUSIONS LV systolic function is severely reduced with EF of 25-30%. Mild mitral regurgitation. Mild aortic stenosis Mild tricuspid regurgitation. Mild pulmonic hypertension Terry Jean MD (Electronically Signed) Final Date: 29 June 2024 22:03 S
--- NOTE | 2024-06-29 10:12 | CTR_ITS ---
PROCEDURE INFORMATION: Exam: CT Chest Without Contrast; Diagnostic Exam date and time: 06/29/2024 11:33 AM Age: 68 years old Clinical indication: Other: Shock TECHNIQUE: Imaging protocol: Diagnostic computed tomography of the chest without contrast. Radiation optimization: All CT scans at this facility use at least one of these dose optimization techniques: automated exposure control; mA and/or kV adjustment per patient size (includes targeted exams where dose is matched to clinical indication); or iterative reconstruction. COMPARISON: CT chest [facility] [id number] 06/24/2024 12:45 AM RADIATION DOSE METRICS: Total DLP (mGy-cm): 1208.28 FINDINGS: Tubes, catheters and devices: Left anterior chest wall pacemaker. Lungs: Moderate left-sided pleural effusion with compressive atelectasis of the left lower lung. Pleural spaces: Small right-sided pleural effusion with mild compressive atelectasis of the right lower lobe. Heart: Cardiomegaly. Trace of pericardial effusion. Lymph nodes: Unremarkable. No enlarged lymph nodes. Vasculature: Unremarkable. No aortic aneurysm. Bones/joints: Unremarkable. No acute fracture. Soft tissues: Unremarkable. PROCEDURE INFORMATION: Exam: CT Abdomen And Pelvis Without Contrast Exam date and time: 06/29/2024 11:33 AM Age: 68 years old Clinical indication: Other: Shock TECHNIQUE: Imaging protocol: Computed tomography of the abdomen and pelvis without contrast. Radiation optimization: All CT scans at this facility use at least one of these dose optimization techniques: automated exposure control; mA and/or kV adjustment per patient size (includes targeted exams where dose is matched to clinical indication); or iterative reconstruction. COMPARISON: CT chest [facility] [id number] 06/24/2024 12:45 AM RADIATION DOSE METRICS: Total DLP (mGy-cm): 1208.28 FINDINGS: Liver: Normal. No mass. Gallbladder and biliary ducts: Normal. No calcified stones. No ductal dilation. Pancreas: Normal. No ductal dilation. Spleen: Normal. No splenomegaly. Adrenal glands: Normal. No mass. Kidneys and ureters: No hydronephrosis or nephrolithiasis. Ureters are normal. Bilateral renal low attenuating renal cysts. Stomach and bowel: Stomach, small bowel, and large bowel are nondilated. Scattered colonic diverticula without any evidence of acute diverticulitis. Appendix: No evidence of appendicitis. Intraperitoneal space: Unremarkable. No free air. No significant fluid collection. Vasculature: Aorto bi-iliac stent is present. Lymph nodes: Unremarkable. No enlarged lymph nodes. Urinary bladder: Unremarkable as visualized. Reproductive: Prostatic calcifications. Enlarged prostate with nodular indentation of the bladder base. Bones/joints: L5-S1 posterior lumbar fusion. Soft tissues: Ventral abdominal hernia that contains several loops of small bowel, no mechanical bowel obstruction. CT/[place] [id number] IMPRESSION: 1. Bilateral pleural effusions with compressive atelectasis moderate on the left lower lung, small on the right lower lung. 2. Marked cardiomegaly and trace of pericardial effusion. IMPRESSION: 1. No acute intra-abdominal findings. 2. Diverticulosis without any evidence of acute diverticulitis. 3. Prostatomegaly with nodular indentation of the bladder base. Defer to clinical and laboratory assessment/PSA levels. COMMENTS: Consistent with the [employer]'s Incidental Findings Committee white paper (J Am Elvis Radiol 2018): Any incidental renal lesion less than 1 cm or classified as too small to characterize, or any incidental cystic renal lesion characterized as simple-appearing, is likely benign. No follow-up imaging is recommended for these lesions per consensus recommendations based on imaging criteria.
[2024-06-29] MEDS: DOPamine drip 400 MG/250 ML PREMIX 18.24 MG IV ×2 (10:47→23:32)
[2024-06-29] MEDS: albumin 25 G/100 ML BAG 60 G IV (10:49)
[2024-06-29 11:19] LABS: ABG PH Result 7.23 (7.35-7.45); Arterial Blood Gas Hematocrit 39.2 % (42-52); Base Excess ABG 7.3 mmol/L (-2.0-2.0); Blood Gas Allen Test Pos; Blood Gas Operator Identificat GD; Blood Gas Sample Site Radial, right; Blood Gas Sample Type Arterial; Oxygen Device NC; PO2 ABG 53.9 mmHg (80.0-100.0); PO2 FiO2 Ratio Arterial Blood 149
--- NOTE | 2024-06-29 11:19 | PHA.VACGOAL ---
Vancomycin Goal - Goal Vancomycin Goal:: 15-20 mg/L Vancomycin Indication:: Pneumonia - Therapy Day of therpy:: Day []of [] . Actual body weight (kg): 214 lb 8 oz - Data Labs: WBC 11.43 10^3/uL (3.29-11.43) 06/29/24 05:25 RBC 4.04 10^6/uL (3.85-5.65) 06/29/24 05:25 Hgb 12.90 g/dL (11.27-16.99) 06/29/24 05:25 Hct 43.1 % (37-53) 06/29/24 05:25 MCV 106.7 fl (82-101) H 06/29/24 05:25 MCH 31.9 pg (27-33) 06/29/24 05:25 MCHC 29.9 g/dL (30-55) L 06/29/24 05:25 RDW 13.4 % (12.1-15.1) 06/29/24 05:25 Sodium 132 mmol/L (136-145) L 06/29/24 05:25 Potassium 3.4 mmol/L (3.5-5.1) L 06/29/24 05:25 Chloride 87 mmol/L (98-107) L 06/29/24 05:25 Carbon Dioxide 39 mmol/L (22-29) H 06/29/24 05:25 Anion Gap 9.4 (5-19) 06/29/24 05:25 BUN 41 mg/dL (8-23) H 06/29/24 05:25 Creatinine 3.1 mg/dL (0.7-1.2) H 06/29/24 05:25 GFR Calculation 20.0 mL/min (90-130) L 06/29/24 05:25 Treatment plan:: new consult Regimen:: 1500 mg now followed by PULSE DOSING TROUGH IN 24 HOURS TO DETERMINE NEXT DOSE
--- NOTE | 2024-06-29 11:47 | XRR_ITS ---
PROCEDURE INFORMATION: Exam: XR Chest Exam date and time: 06/29/2024 12:22 PM Age: 68 years old Clinical indication: Device placement; Picc; Additional info: Picc confirmation TECHNIQUE: Imaging protocol: Radiologic exam of the chest. Views: 1 view. COMPARISON: CT chest [place] [id number] 06/29/2024 11:33 AM FINDINGS: Tubes, catheters and devices: Dual-chamber AICD. Right upper extremity central line with its tip overlying the right atrium. Lungs: Blunting of the left costophrenic angle and compressive atelectasis of the left lower lung. Pleural spaces: Cardiomegaly. No pleural effusion. No pneumothorax. Heart/Mediastinum: Enlarged cardiac silhouette. Bones/joints: Unremarkable. XR/XR chest 1V portable [id number] IMPRESSION: 1. Right upper extremity central line with its tip overlying the right atrium. No pneumothorax. 2. Marked cardiomegaly 3. Left pleural effusion with compressive atelectasis.
[2024-06-29] MEDS: vancomycin 1,500 MG/300 ML PIGGYBACK 200 MG IV (11:57)
--- NOTE | 2024-06-29 12:09 | PM.CONSULT ---
Providers/Reason For Consult Consulting Physician/Specialty*: Terry Jean MD/ Cardiology Reason for Consult*: Shock Requesting Physician: Dr Dsouza Attending Physician: Neptali Dsouza MD Primary Care Provider: Chanell Lee MD History of Present Illness History of Present Illness Jim Carney is a 68 year old male with past medical history of coronary artery disease, HFrEF, ICD in place who was admitted to hospital several days ago with altered mental status. He was also found with volume overload. Cardiology was consulted as patient developed hypotension and is requiring pressor support. Denies chest pain. Troponin is mildly elevated but no significant uptrend. EKG shows paced rhythm. Currently on BiPAP. Has some shortness of breath. Creatinine is elevated. Review of Systems General: Reports: 10 or more systems reviewed and unremarkable except in HPI and below Card: Reports: swelling of feet/ankles and dyspnea on exertion; Denies: chest pain, palpitations, irregular heart rhythm, edema, syncope or leg pain with exertion Resp: Denies: dyspnea, productive cough or non-productive cough Musc: Denies: extremity pain or extremity swelling Medications/Allergies Home Medications Medication Instructions Recorded Confirmed Last Taken Type aspirin 81 mg tablet,delayed 81 mg PO DAILY #90 tabs 05/05/22 06/24/24 06/22/24 19:00 Rx release (Adult Low Dose Aspirin) atorvastatin 80 mg tablet 80 mg PO DAILY 05/05/22 06/24/24 06/22/24 20:00 History doxazosin 8 mg tablet 4 mg PO DAILY 05/05/22 06/24/24 06/22/24 18:00 History gabapentin 300 mg capsule 300 mg PO TID 05/05/22 06/24/24 06/22/24 20:00 History lamotrigine 200 mg tablet 200 mg PO DAILY 05/05/22 06/24/24 06/22/24 20:00 History pantoprazole 40 mg tablet,delayed 40 mg PO DAILY 05/05/22 06/24/24 06/23/24 08:00 History release carvedilol 25 mg tablet 12.5 mg PO DAILY 07/13/22 06/24/24 06/22/24 17:00 History lithium carbonate 300 mg capsule 300 mg PO DAILY 08/01/22 06/24/24 05/20/24 History guaifenesin 600 mg tablet, 600 mg PO BID 05/21/24 06/24/24 05/21/24 History extended release 12 hr (Mucinex) methocarbamol 500 mg tablet 500 mg PO Q12H PRN muscle spasms 05/21/24 06/24/24 Unknown History albuterol sulfate 90 mcg/actuation 2 puff inhalation Q6H PRN 05/24/24 06/24/24 Unknown Rx aerosol inhaler Shortness Of Breath 30 days #30 grams cholecalciferol (vitamin D3) 50 50 mcg PO DAILY 06/18/24 06/24/24 06/22/24 18:00 History mcg (2,000 unit) capsule furosemide 40 mg tablet 40 mg PO DIRECTED #135 tabs 06/18/24 06/24/24 06/23/24 Rx mecobalamin (vitamin B12) 1,000 1,000 mcg PO DAILY 06/18/24 06/24/24 06/22/24 19:00 History mcg chewable tablet melatonin 10 mg capsule 10 mg PO DAILY 06/18/24 06/24/24 06/22/24 20:00 History acetaminophen 500 mg tablet 1,000 mg PO Q6H PRN Fever Or Pain 06/24/24 06/24/24 Unknown History (Tylenol Extra Strength) mirtazapine 30 mg tablet 30 mg PO BEDTIME 06/24/24 06/24/24 06/22/24 20:00 History quetiapine 100 mg tablet 50 - 100 mg PO BEDTIME PRN 06/24/24 06/24/24 Unknown History DEPRESSION sacubitril 24 mg-valsartan 26 mg 1 tab PO BID 06/24/24 06/24/24 06/23/24 07:00 History tablet (Entresto) Allergies Allergy/AdvReac Type Severity Reaction Status Date / Time No Known Allergies Allergy Verified 06/23/24 21:48 Current Medications Generic Name Dose Route Start Last Admin Trade Name Freq PRN Reason Stop Dose Admin Hydrocodone Bitart/Acetaminophen 1 tab 06/24/24 05:25 06/27/24 19:58 Hydrocodone-Acetaminophen 5-325 Mg Tablet PO 1 tab Q4H PRN Administration MODERATE PAIN Albuterol/Ipratropium 3 ml 06/24/24 08:00 06/29/24 08:57 Ipratropium-Albuterol 3 Ml Neb INHALATION 3 ml Q6H.RESP MARYANN Administration Aspirin 81 mg 06/24/24 09:45 06/29/24 09:22 Aspirin 81 Mg Ec Tablet PO 81 mg DAILY MARYANN Administration Atorvastatin Calcium 40 mg 06/25/24 09:00 06/29/24 09:22 Atorvastatin 40 Mg Tablet PO 40 mg DAILY MARYANN Administration Budesonide 0.5 mg 06/24/24 08:00 06/29/24 08:57 Budesonide 0.5 Mg/2 Ml Neb INHALATION 0.5 mg BID.RESPIRATORY MARYANN Administration Docusate Sodium 200 mg 06/24/24 09:00 06/29/24 09:22 Docusate Sodium 100 Mg Capsule PO 200 mg DAILY MARYANN Administration Doxazosin Mesylate 4 mg 06/25/24 09:00 06/28/24 08:07 Doxazosin 4 Mg Tablet PO 4 mg DAILY MARYANN Administration Enoxaparin Sodium 40 mg 06/24/24 21:00 06/28/24 21:34 Enoxaparin 40 Mg/0.4 Ml Syringe SUBCUT 40 mg Q24H MARYANN Administration Norepinephrine Bitartrate 4 mg in 250 mls @ 0 mls/hr 06/28/24 17:00 06/29/24 09:21 Levophed IV 18 mcg/min .Q0M MARYANN 67.5 mls/hr Administration Protocol Per Protocol Dopamine HCl/Dextrose 400 mg in 250 mls @ 18.243 mls/hr 06/29/24 10:15 06/29/24 10:47 Intropin Drip IV 5 mcg/kg/min CONT MARYANN 18.24 mls/hr Administration Protocol 5 MCG/KG/MIN Albumin Human 25 g in 100 mls @ 60 mls/hr 06/29/24 10:15 06/29/24 10:49 Albumin IV 60 mls/hr Q8H MARYANN Administration Lamotrigine 200 mg 06/24/24 09:00 06/29/24 09:22 Lamotrigine 100 Mg Tablet PO 200 mg DAILY MARYANN Administration [place] Carbonate 300 mg 06/24/24 09:00 06/29/24 09:22 [place] Carbonate 300 Mg Capsule PO 300 mg DAILY MARYANN Administration Mirtazapine 30 mg 06/24/24 21:00 06/28/24 21:34 Mirtazapine 30 Mg Tablet PO 30 mg BEDTIME MARYANN Administration Ondansetron HCl 4 mg 06/24/24 00:05 06/28/24 09:50 Ondansetron 4 Mg Tablet PO 4 mg Q6H PRN Administration NAUSEA Pantoprazole Sodium 40 mg 06/24/24 06:00 06/29/24 05:16 Pantoprazole 40 Mg Sdv IVP 40 mg Q24H MARYANN Administration Senna 17.2 mg 06/24/24 09:00 06/29/24 09:22 Sennosides 8.6 Mg Tablet PO 17.2 mg DAILY MARYANN Administration Zolpidem Tartrate 10 mg 06/26/24 12:50 06/28/24 21:34 Zolpidem 5 Mg Tablet PO 10 mg BEDTIME PRN Administration INSOMNIA PFSH Acute PFSH: Medical History Osteoporosis without pathological fracture Bipolar disorder, unspecified Benign prostatic hyperplasia without lower urinary tract symptoms Gastritis, unspecified, without bleeding Gastrointestinal stromal tumor of stomach Low back pain, unspecified Umbilical hernia without obstruction or gangrene Hyperparathyroidism s/p parathyroid tumor removal Depression Bipolar 1 disorder Gastrointestinal stromal tumor s/p surgery in 2019 in [place]. No chemo or radiation needed. Hypertension Ischemic cardiomyopathy CAD (coronary artery disease) s/p 1 stent in 2015 Cardiac resynchronization therapy defibrillator (FLEXIBLE MACHINING SYSTEM MACHINIST-D) in place Hyperlipidemia, unspecified Surgical History History of lumbar laminectomy in 2013 in [place] Abdominal aortic aneurysm (AAA) without rupture s/p surgery in 2018 or 2019 in [place] Family History Father Heart attack Social History Smoking and tobacco/nicotine status: former use of tobacco/nicotine Alcohol intake: never Substance/Drug Use: current Vitals/I&O/Wt Last Vital Signs Temp 98.6 F 06/29/24 09:15 Pulse 64 06/29/24 12:00 Resp 12 06/29/24 12:00 BP 86/68 06/29/24 12:00 Pulse Ox 93 06/29/24 12:00 O2 Del Method BiPAP 06/29/24 12:00 O2 Flow Rate 3 06/29/24 09:15 FiO2 40 06/29/24 11:48 06/28/24 06/29/24 06/29/24 22:59 06:59 14:59 Intake Total 1237.500 / 1357.500 433.875 / 7724.353 1372.625 / 1361.625 Output Total 200 / 200 150 / 350 Balance 1037.500 / 1157.500 283.875 / 8301.290 5275.625 / 1361.625 Weight last 48 hrs Weight 214 lb 8 oz Weight 214 lb 15.211 oz Physical Exam Narrative: GENERAL: Patient is alert, awake . On bipap NECK: No jugular vein distension. [] HEENT: No cyanosis. No icterus. No pallor. [] HEART: Regular S1 and S2. Grade 2/6 systolic murmur LUNGS: Diminished air entry bilaterally CENTRAL NERVOUS SYSTEM: Grossly nonfocal. []Pulses palpable in the lower extremities, both dorsalis pedis and posterior tibial. [] Data 06/30/24 03:20 06/30/24 03:20 Micro: Microbiology 06/23/24 00:00 Blood Culture - Final Blood NO GROWTH AFTER 5 DAYS 06/23/24 00:00 Blood Culture - Final Blood NO GROWTH AFTER 5 DAYS A&P Assessment and plan (1) Shock: (2) Elevated troponin: (3) Hyperlipidemia, unspecified: (4) Cardiac resynchronization therapy defibrillator (FLEXIBLE MACHINING SYSTEM MACHINIST-D) in place: Plan Possible cardiac shock however extremities are warm. Continue pressor support for now. Obtain echocardiogram. May require dobutamine drip if shows worsening shock. Lactic acid level obtained and is normal. Supportive therapy for now Monitor renal function and close I and Os. Gentle diuresis Thank you for involving us with care of this patient. We will continue to follow. Please call with questions. Consult Attestations Medical Necessity Statement: Care expected to cross 2 midnights. Coding Level of Care Code Acute Code for Chg Fwd Diagnoses Shock R57.9 Elevated troponin R79.89 Hyperlipidemia, unspecified E78.5 Cardiac resynchronization therapy defibrillator (FLEXIBLE MACHINING SYSTEM MACHINIST-D) in place Z95.810
[2024-06-29] MEDS: piperacillin-tazobactam 3.375 GM in sodium chloride 0.9% (plus) 50 ML IV ×2 (13:04→20:33)
--- NOTE | 2024-06-29 13:06 | XRR_ITS ---
PROCEDURE INFORMATION: Exam: XR Chest Exam date and time: 06/29/2024 1:09 PM Age: 68 years old Clinical indication: Device placement; Prior surgery; Surgery date: 6+ months; Surgery type: Picc line placement TECHNIQUE: Imaging protocol: Radiologic exam of the chest. Views: 1 view. COMPARISON: CR XR chest 1V portable [id number] 06/29/2024 12:22 PM FINDINGS: Tubes, catheters and devices: Left anterior chest wall transvenous biventricular ICD with leads overlying the right atrium, right ventricle and left ventricle/coronary sinus. Right upper extremity PICC line with its tip overlying the superior SVC. Lungs: Unremarkable. No consolidation. Pleural spaces: Unremarkable. No pleural effusion. No pneumothorax. Heart/Mediastinum: Enlarged cardiac silhouette, unchanged. Bones/joints: Unremarkable. XR/XR chest 1V portable [id number] IMPRESSION: 1. No acute findings. 2. Right upper extremity PICC line with its tip overlying the superior SVC. No pneumothorax.
[2024-06-29 13:07] LABS: Erythrocyte Sedimentation Rate < 1 mm/hr (0-10)
[2024-06-29 13:08] LABS: Glucose Point of Care 227 mg/dL (70-110)
[2024-06-29] MEDS: insulin lispro 100 unit/1 mL SUBCUT (13:08)
[2024-06-29 13:17] LABS: Lactic Sepsis W/Reflex 0.7 mmol/L (0.5-2.2)
[2024-06-29 13:21] LABS: Troponin(5th) Baseline 186 ng/L (0-15)
[2024-06-29 13:24] LABS: Estmated Average Glucose 128; Hemoglobin A1C 6.1 % (4.0-6.0)
[2024-06-29 13:25] LABS: Cortisol Random 19.08 ug/dL (2.47-19.5); NT Pro B Type Natriuretic Pept 1840 pg/mL (0-125)
[2024-06-29 13:27] LABS: NT Pro B Type Natriuretic Pept 1837 pg/mL (0-125); Procalcitonin 0.31 ng/mL (0-0.5)
[2024-06-29 13:38] LABS: C Reactive Protein 3.3 mg/L (0.0-4.9)
[2024-06-29 14:11] LABS: Creatine Phosphokinase 58 U/L (39-308)
[2024-06-29] MEDS: heparin 5,000 unit/mL INJ 1 mL IVP ×2 (14:14→21:32)
[2024-06-29] MEDS: heparin drip 25,000 UNIT/500 ML PREMIX 22 UNIT IV (14:14)
[2024-06-29 14:33] LABS: ABG PCO2 90.4 mmHg (35-45)
[2024-06-29 14:41] LABS: Bilirubin Urine 1+ (Negative); Blood Urine Negative (Negative); Glucose Urine UA Negative (Normal); Ketones Urine Trace (Negative); Leukocyte Esterase Urine Trace (Negative); Nitrate Urine Negative (Negative); Protein Urine 2+ (Negative); Specific Gravity, Urine 1.019 (1.005-1.030); Urine Appearance Clear (CLEAR); Urine Color Dark Yellow (Yellow)
[2024-06-29 14:45] LABS: Add Urine Microscopic? YES; Hyaline Casts Urine 20.27 /lpf; RBC Urine 0-2 /hpf (0-2); Squamous Epithelial Cell Urine 0-5 /hpf (0-5); WBC Urine 0-5 /hpf (0-5)
[2024-06-29 15:03] LABS: Bacteria Urine 1+ /hpf; UA Slide Review UA Slide Review Perf
--- NOTE | 2024-06-29 15:33 | P.PN_ITS ---
Subjective 2 Subjective: -Overnight events noted - Patient was examined this morning, he is alert to person, to place, not to time he follows commands he is quite drowsy this morning he denies any chest pain, palpitations, shortness of breath no abdominal pain, no fevers, no chills, no lightheadedness, no dizziness -We discussed his shock, currently he is on 18 of Levophed, urine output 350 cc, maps at 65, currently on 3 L -Discussed that he is in shock, likely c ardiogenic shock, but will have to do an other investigation in terms of causes -Discussed morbidity and mortality assoc polanco with his cardiogenic shock now with his acute renal failure, will consult cardiology, nephrology -CT chest abdomen pelvis ordered to find infectious cause lactic acid ordered CRP, Pro-Kye for now placed patient on broad-spectrum antibiotic therapy -ABG ordered -Troponin series ordered -Repeat cardiac echo, venous ultrasound -Discussed with the nursing staff place patient on dopamine -Order for PICC line placed -Patient was monitored throughout the mo rning -Held off on diuresis due to shock -Obtained blood cultures -CT chest abdomen pelvis, no significant infectious source found however does have bilateral pleural effusions with compressive atelectasis, could be underlying pneumonia continue IV antibiotics -No evidence hemorrhagic shock on CT imer st abdomen pelvis, hemoglobin stable -Troponin series ordered baseline tropon in 185 started on heparin drip -ABG shows hypercarbic respiratory failu re with a pH of 7.32, pCO2 over 90, started on BiPAP therapy -PICC line placed -IV antibiotics vancomycin, Zosyn -Spoke to cardiology about concerns for cardiogenic shock concerns, will consult -Consulted nephrology about acute renal failure -Spoke to cardiology, plan on continuing pressor therapy, will consider dobutamine consider diuresis -Patient was reexamined this afternoon, is at bedside he is resting comfortably on BiPAP, can follow commands, discussed concerns for cardiogenic shock, cardiology consulted with acute renal failure nephrology consulted will watch him closely currently on 2 pressors, work currently requiring BiPAP, discussed status is critical, prognosis guarded, will monitor him closely Vitals/I&O/Wt Last Vital Signs Temp 98.6 F 06/29/24 09:15 Pulse 60 06/29/24 15:08 Resp 18 06/29/24 15:00 BP 114/62 06/29/24 15:00 Pulse Ox 98 06/29/24 15:00 O2 Del Method BiPAP 06/29/24 15:00 O2 Flow Rate 3 06/29/24 09:15 FiO2 40 06/29/24 14:49 06/29/24 06/29/24 06/29/24 06:59 14:59 22:59 Intake Total 433.875 / 9530.114 3183.125 / 2135.125 39 / 2174.125 Output Total 150 / 350 Balance 283.875 / 8734.657 7959.125 / 2135.125 39 / 2174.125 Weight last 48 hrs Weight 97.296 kg Weight 97.5 kg Physical Exam 2 Const: COMMON NORMALS: no acute distress ORIENTATION/CONSCIOUSNESS: Yes awake, Yes oriented to person and Yes oriented to place Eye: COMMON NORMALS: Equal, round and reactive pupils present PUPIL: Yes Equal, round and reactive pupils present Resp: COMMON NORMALS: normal respiratory effort, No retractions and No use of accessory muscles OTHER: Crackles bilateral lung bases Cardio: COMMON NORMALS: regular rate, regular rhythm, S1 normal heart sound present and S2 normal heart sound present RATE: regular rate RHYTHM: r egular rhythm HEART SOUNDS: S1 normal heart sound present and S2 normal heart sound present GI: OTHER: Abdomen soft, distended, good bowel sounds, no guarding, rebound, rigidity Neuro: SENSORIUM/ORIENTATION: Yes oriented to person and Yes oriented to place Psych: COMMON NORMALS: mental status grossly normal Urinary Catheter Management: Cunningham: Cath Placed During This Visit: yes Urinary Catheter Date of Insertion: 06/29/24 Urinary Catheter Time of Insertion: 13:59 Sepsis: Is patient septic: Yes Focused sepsis exam performed: Yes F ocused sepsis exam: DP PT pulses palpable, cap refill greater than 2 seconds, mild mottling bilateral extremity Date exam was performed: 06/29/24 Time exam was performed: 09:00 Data 06/29/24 05:25 06/29/24 05:25 Micro: Microbiology 06/29/24 13:42 Blood Culture - Preliminary Blood SPECIMEN COLLECTED 06/29/24 13:40 Blood Culture - Preliminary Blood SPECIMEN COLLECTED 06/23/24 00:00 Blood Culture - Final Blood NO GROWTH AFTER 5 DAYS 06/23/24 00:00 Blood Culture - Final Blood NO GROWTH AFTER 5 DAYS A&P Assessment and plan (1) Shock: (2) Cardiogenic shock: (3) NSTEMI (non-ST elevated myocardial infarction): (4) Acute hypoxic on chronic hypercapnic respiratory failure: (5) Acute renal failure: (6) Encephalopathy acute: (7) Acute on chronic systolic CHF (congestive heart failure), NYHA class 4: (8) Sepsis: Plan Acute hypoxic hypercarbic respiratory failure -Likely secondary to bilateral pleural effusions -Acute on chronic systolic CHF -Possibility of pneumonia Plan -Continue BiPAP therapy -Monitor in the ICU closely -Will consider diuresis based on clinical progress -Vancomycin -Zosyn -Blood cultures -Sputum cultures Shock -Likely cardiogenic shock -Concerns for possible septic shock Plan -Maintain MAP in 65 -Levophed currently at 10 -On dopamine -Will consider dopamine based on clinical progress -Follow clinical status closely Acute on chronic systolic CHF -History of ischemic cardiomyopathy, -CAD with [place] 2015 -History of EF less than 15% -Defibrillator in place -Plan -Cardiology consulted -IV diuresis on hold -On pressors as above -Cardiac echo as above -Aspirin, statin Acute renal failure -Could be from diuresis, shock -Component of cardiorenal syndrome -Component of sepsis Plan -CT scan no obstructive uropathy -Renal ultrasound -Nephrology consulted -Stopped IV fluids due to concerns for fluid overload -Patient might require dialysis -Will consider Lasix therapy based on clinical progress NSTEMI -No chest pain complaints -Type I versus type II -Troponins, serial EKGs, telemetry monitoring -Cardiac echo -Heparin drip -Aspirin, statin Sepsis -Sepsis features met, given shock, respiratory failure, as above Acute encephalopathy -Neurochecks -Aspiration precautions -NIH stroke scale Hyperglycemia, A1c 6.1, low-dose sliding scale Full code Heparin drip for DVT prophylaxis Status critical, prognosis guarded Attestations 2 Medical Necessity Statement*: Patient requires hospitalization, for acute shock, likely cardiogenic shock, concern for sepsis, acute renal failure, acute encephalopathy acute hypoxic hypercarbic respiratory failure fluid overload, CHF, possible pneumonia Coding Level of Care Code Critical Care >/= 30 minutes Critical care time (in minutes): 55 The high probability of a clinically significant, sudden or life threatening deterioration, as referenced in this documentation, required my full and direct attention, intervention and personal management. The critical care time shown is in addition to time spent performing any reported separately billable procedures and includes the following: [x] Data and vital sign review and interpretation [x ] Patient assessment, examination and intervention [x] Medication orders and management [x] Patient/Family updates as able [x] Care Coordination and Documentation. Diagnoses Shock R57.9 Cardiogenic shock R57.0 NSTEMI (non-ST elevated myocardial infarction) I21.4 Acute hypoxic on chronic hypercapnic respiratory failure J96.01; J96.12 Acute renal failure N17.9 Encephalopathy acute G93.40 Acute on chronic systolic CHF (congestive heart failure), NYHA class 4 I50.23 Sepsis A41.9
--- NOTE | 2024-06-29 15:35 | PC.NURSE ---
Educated patient and Family on not using electric blanket due to risk of spark and oxygen use. Patient to take electric blanket home. Patient provided with warm blankets from blanket warmer.
[2024-06-29 16:07] LABS: ABG PCO2 47.8 mmHg (35-45); ABG PH Result 7.47 (7.35-7.45); Arterial Blood Gas Hematocrit 37.5 % (42-52); Base Excess ABG 9.5 mmol/L (-2.0-2.0); Blood Gas Allen Test Pos; Blood Gas Operator Identificat GD; Blood Gas Sample Site Radial, right; Blood Gas Sample Type Arterial; Carboxyhemoglobin 1.4 %THgb (0.4-20.1); HCO3 ABG 34.5 mmol/L (22-26); HGB O2 Sat 92.5 % (95-100); Ionized Calcium Level - ABG 1.3 mmol/L (1.1-1.4); Oxygen Device BIPAP; Oxygen Saturation ABG 94.7; PO2 ABG 55.9 mmHg (80.0-100.0); PO2 FiO2 Ratio Arterial Blood 186; Potassium Level - ABG 3.3 mmol/L (3.5-5.0); Total Hemoglobin 12.2 g/dL (14-18)
--- NOTE | 2024-06-29 16:33 | PM.CONSULT ---
Providers/Reason For Consult Consulting Physician/Specialty*: [facility]/NEPHROLOGY Reason for Consult*: ROCKY Attending Physician: Neptali Dsouza MD Primary Care Provider: Chanell Lee MD History of Present Illness History of Present Illness Jim Carney is a 68 year old male Patient is a 68-year-old male with past medical history of coronary artery disease with ischemic cardiomyopathy and ejection fraction less than 30%, history of pacemaker chronic hypoxic respiratory failure on 3 L O2 continuously, bipolar disorder was admitted to the hospital on 06/23/2024 due to altered mental status. Creatinine was 1.2 was placed on BiPAP. Patient currently admitted to ICU. Patient's blood pressures remained low and currently patient is on 18 mcg of LevophedPatientRemained low and currently patient is on 18Micrograms of Luciano, during the course patient's renal function has further gotten worse patient is oliguric currentlyCome on during the course patient's renal function has further got worse patient is all good currently, on 3 L O2 currently., 3 L Review of Systems Narrative: negative Medications/Allergies Home Medications Medication Instructions Recorded Confirmed Last Taken Type aspirin 81 mg tablet,delayed 81 mg PO DAILY #90 tabs 05/05/22 06/24/24 06/22/24 19:00 Rx release (Adult Low Dose Aspirin) atorvastatin 80 mg tablet 80 mg PO DAILY 05/05/22 06/24/24 06/22/24 20:00 History doxazosin 8 mg tablet 4 mg PO DAILY 05/05/22 06/24/24 06/22/24 18:00 History gabapentin 300 mg capsule 300 mg PO TID 05/05/22 06/24/24 06/22/24 20:00 History lamotrigine 200 mg tablet 200 mg PO DAILY 05/05/22 06/24/24 06/22/24 20:00 History pantoprazole 40 mg tablet,delayed 40 mg PO DAILY 05/05/22 06/24/24 06/23/24 08:00 History release carvedilol 25 mg tablet 12.5 mg PO DAILY 07/13/22 06/24/24 06/22/24 17:00 History lithium carbonate 300 mg capsule 300 mg PO DAILY 08/01/22 06/24/24 05/20/24 History guaifenesin 600 mg tablet, 600 mg PO BID 05/21/24 06/24/2424 History extended release 12 hr (Mucinex) methocarbamol 500 mg tablet 500 mg PO Q12H PRN muscle spasms 05/21/24 06/24/24 Unknown History albuterol sulfate 90 mcg/actuation 2 puff inhalation Q6H PRN 05/24/24 06/24/24 Unknown Rx aerosol inhaler Shortness Of Breath 30 days #30 grams cholecalciferol (vitamin D3) 50 50 mcg PO DAILY 06/18/24 06/24/24 06/22/24 18:00 History mcg (2,000 unit) capsule furosemide 40 mg tablet 40 mg PO DIRECTED #135 tabs 06/18/24 06/24/24 06/23/24 Rx mecobalamin (vitamin B12) 1,000 1,000 mcg PO DAILY 06/18/24 06/24/24 06/22/24 19:00 History mcg chewable tablet melatonin 10 mg capsule 10 mg PO DAILY 06/18/24 06/24/24 06/22/24 20:00 History acetaminophen 500 mg tablet 1,000 mg PO Q6H PRN Fever Or Pain 06/24/24 06/24/24 Unknown History (Tylenol Extra Strength) mirtazapine 30 mg tablet 30 mg PO BEDTIME 06/24/24 06/24/24 06/22/24 20:00 History quetiapine 100 mg tablet 50 - 100 mg PO BEDTIME PRN 06/24/24 06/24/24 Unknown History DEPRESSION sacubitril 24 mg-valsartan 26 mg 1 tab PO BID 06/24/24 06/24/24 06/23/24 07:00 History tablet (Entresto) Allergies Allergy/AdvReac Type Severity Reaction Status Date / Time No Known Allergies Allergy Verified 06/23/24 21:48 Current Medications Generic Name Dose Route Start Last Admin Trade Name Freq PRN Reason Stop Dose Admin Hydrocodone Bitart/Acetaminophen 1 tab 06/24/24 05:25 06/27/24 19:58 Hydrocodone-Acetaminophen 5-325 Mg Tablet PO 1 tab Q4H PRN Administration MODERATE PAIN Albuterol/Ipratropium 3 ml 06/24/24 08:00 06/29/24 14:46 Ipratropium-Albuterol 3 Ml Neb INHALATION 3 ml Q6H.RESP MARYANN Administration Aspirin 81 mg 06/24/24 09:45 06/29/24 09:22 Aspirin 81 Mg Ec Tablet PO 81 mg DAILY MARYANN Administration Atorvastatin Calcium 40 mg 06/25/24 09:00 06/29/24 09:22 Atorvastatin 40 Mg Tablet PO 40 mg DAILY MARYANN Administration Budesonide 0.5 mg 06/24/24 08:00 06/29/24 08:57 Budesonide 0.5 Mg/2 Ml Neb INHALATION 0.5 mg BID.RESPIRATORY MARYANN Administration Docusate Sodium 200 mg 06/24/24 09:00 06/29/24 09:22 Docusate Sodium 100 Mg Capsule PO 200 mg DAILY MARYANN Administration Doxazosin Mesylate 4 mg 06/25/24 09:00 06/28/24 08:07 Doxazosin 4 Mg Tablet PO 4 mg DAILY MARYANN Administration Heparin Sodium (Porcine) 0 unit 06/29/24 13:32 06/29/24 14:14 Heparin 5,000 Unit/Ml Inj 1 Ml IVP 4,000 unit PRN PRN Administration Heparin Weight Based Protocol -Subsequent Bolus Protocol Norepinephrine Bitartrate 4 mg in 250 mls @ 0 mls/hr 06/28/24 17:00 06/29/24 16:03 Levophed IV 12 mcg/min .Q0M MARYANN 45 mls/hr Titration Protocol Per Protocol Dopamine HCl/Dextrose 400 mg in 250 mls @ 18.243 mls/hr 06/29/24 10:15 06/29/24 10:47 Intropin Drip IV 5 mcg/kg/min CONT MARYANN 18.24 mls/hr Administration Protocol 5 MCG/KG/MIN Piperacillin Sod/Tazobactam 50 mls @ 12.5 mls/hr 06/29/24 12:30 06/29/24 13:04 Sod 3.375 gm/ Sodium Chloride IV 12.5 mls/hr Q8H [facility] Administration Protocol Heparin Sodium/Sodium Chloride 25,000 unit in 500 mls @ 0 mls/hr 06/29/24 13:45 06/29/24 14:14 Heparin Drip IV 11.31 unit/kg/hr CONT MARYANN 22 mls/hr Administration Protocol Per Protocol Insulin Human Lispro 0 unit 06/29/24 12:00 06/29/24 13:08 Insulin Lispro 100 Unit/1 Ml SUBCUT 8 unit TIDWM [facility] Administration Protocol Lamotrigine 200 mg 06/24/24 09:00 06/29/24 09:22 Lamotrigine 100 Mg Tablet PO 200 mg DAILY MARYANN Administration [place] Carbonate 300 mg 06/24/24 09:00 06/29/24 09:22 [place] Carbonate 300 Mg Capsule PO 300 mg DAILY MARYANN Administration Mirtazapine 30 mg 06/24/24 21:00 06/28/24 21:34 Mirtazapine 30 Mg Tablet PO 30 mg BEDTIME MARYANN Administration Pantoprazole Sodium 40 mg 06/24/24 06:00 06/29/24 05:16 Pantoprazole 40 Mg Sdv IVP 40 mg Q24H MARYANN Administration Senna 17.2 mg 06/24/24 09:00 06/29/24 09:22 Sennosides 8.6 Mg Tablet PO 17.2 mg DAILY MARYANN Administration Zolpidem Tartrate 10 mg 06/26/24 12:50 06/28/24 21:34 Zolpidem 5 Mg Tablet PO 10 mg BEDTIME PRN Administration INSOMNIA PFSH Acute PFSH: Medical History (Updated 06/29/24 @ 15:43 by Neptali Dsouza MD) Osteoporosis without pathological fracture Bipolar disorder, unspecified Benign prostatic hyperplasia without lower urinary tract symptoms Gastritis, unspecified, without bleeding Gastrointestinal stromal tumor of stomach Low back pain, unspecified Umbilical hernia without obstruction or gangrene Hyperparathyroidism s/p parathyroid tumor removal Depression Bipolar 1 disorder Gastrointestinal stromal tumor s/p surgery in 2019 in [place]. No chemo or radiation needed. Hypertension Ischemic cardiomyopathy CAD (coronary artery disease) s/p 1 stent in 2015 Cardiac resynchronization therapy defibrillator ([employer] CONSULTANT-D) in place Hyperlipidemia, unspecified Surgical History (Updated 06/24/24 @ 06:47 by Sophie Marks MD) History of lumbar laminectomy in 2013 in [place] Abdominal aortic aneurysm (AAA) without rupture s/p surgery in 2018 or 2019 in [place] Family History (Updated 06/24/24 @ 06:48 by Sophie Marks MD) Father Heart attack Social History (Updated 06/24/24 @ 06:47 by Sophie Marks MD) Smoking and tobacco/nicotine status: former use of tobacco/nicotine Alcohol intake: never Substance/Drug Use: current Vitals/I&O/Wt Last Vital Signs Temp 99.0 F 06/29/24 15:35 Pulse 69 06/29/24 16:00 Resp 18 06/29/24 16:00 BP 129/72 06/29/24 16:00 Pulse Ox 95 06/29/24 16:00 O2 Del Method BiPAP 06/29/24 16:00 O2 Flow Rate 3 06/29/24 09:15 FiO2 30 06/29/24 15:49 06/29/24 06/29/24 06/29/24 06:59 14:59 22:59 Intake Total 433.875 / 1027.544 5045.125 / 2135.125 66.125 / 2201.250 Output Total 150 / 350 Balance 283.875 / 1704.875 9062.125 / 2135.125 66.125 / 2201.250 Weight last 48 hrs Weight 97.296 kg Weight 97.5 kg Physical Exam Narrative: No distress Decreased BS joseph per report S1S2 RRR per report + LE edema Urinary Catheter Management: Cunningham: Cath Placed During This Visit: yes Urinary Catheter Date of Insertion: 06/29/24 Urinary Catheter Time of Insertion: 13:59 Data 06/30/24 03:20 06/30/24 03:20 Micro: Microbiology 06/29/24 13:42 Blood Culture - Preliminary Blood SPECIMEN COLLECTED 06/29/24 13:40 Blood Culture - Preliminary Blood SPECIMEN COLLECTED 06/23/24 00:00 Blood Culture - Final Blood NO GROWTH AFTER 5 DAYS 06/23/24 00:00 Blood Culture - Final Blood NO GROWTH AFTER 5 DAYS A&P Assessment and plan (1) Acute renal failure: 1. Acute kidney injury: In the setting of possibly cardiogenic shock, hypotension patient currently on dopamine and Levophed. Baseline creatinine was 1.1 in April 2024., Patient now has a creatinine of 3.1, oliguric. Watch closely for another 24 hours, if no improvement will attempt CRRT. 2. Shock, likely cardiogenic, on Levophed and dopamine currently 3. Coronary previous disease with NSTEMI, on heparin drip 4. Acute on chronic respiratory failure patient evaluated using audiovisual cart. Time spent 40 minutes. Consult Attestations Medical Necessity Statement: per [facility] team Coding Level of Care Code Acute Code for [facility] Fwd Diagnoses Acute renal failure N17.9
[2024-06-29 16:55] LABS: Glucose Point of Care 109 mg/dL (70-110)
[2024-06-29 17:15] LABS: Troponin 5 2HR 167.9 ng/L (0-15); Troponin 5 2HR Delta -18.1 ABS# (0-10)
[2024-06-29] MEDS: norepinephrine 4 MG/250 ML BAG 45 MG IV (17:35)
[2024-06-29 20:30] LABS: Troponin 5 6HR Delta -15.5 ng/L (0-12)
[2024-06-29 20:32] LABS: Troponin 5 6HR 170.5 ng/L (0-15)
[2024-06-29] MEDS: mirtazapine 30 mg Tablet PO (20:34)
[2024-06-29] MEDS: zolpidem 5 mg Tablet 10 MG PO (20:36)
[2024-06-29 21:12] LABS: Partial Thromboplastin Time 36.1 SECONDS (23.9-36.7)
[2024-06-29] MEDS: norepinephrine 4 MG/250 ML BAG 52.5 MG IV (21:59)
[2024-06-29 23:02] LABS: Glucose Point of Care 190 mg/dL (70-110)
[2024-06-30] VITALS (108 sets, daily range): BP systolic 62–148; BP diastolic 40–87; PULSE 57–138; RESP 0–73; TEMP 36.6–37.2; O2SAT 83–100
[2024-06-30] MEDS: ipratropium-albuterol 3 mL Neb INHALATION ×4 (02:10→20:37)
[2024-06-30] MEDS: norepinephrine 4 MG/250 ML BAG 52.5 MG IV ×2 (02:56→07:26)
[2024-06-30 03:49] LABS: Basophils % 0.2 %; Eosinophils # 0.2 10^3/uL (0.0-0.8); Eosinophils % 1.4 %; Hematocrit 33.8 % (37-53); Lymphocytes # 1.3 10^3/uL (0.8-4.8); Lymphocytes % 11.8 %; Mean Corpuscular HGB Conc 30.8 g/dL (30-55); Mean Corpuscular Hemoglobin 31.5 pg (27-33); Mean Corpuscular Volume 102.4 fl (82-101); Mean Platelet Volume 10.7 fL (7.4-10.4); Monocytes # 1.1 10^3/uL (0.2-0.9); Monocytes % 9.7 %; Neutrophils # 8.49 10^3/uL (1.8-7.7); Neutrophils % 76.4 %; Nucleated Red Blood Cells % 0 %; Platelet Count 159 10^3/cmm (157-399); Red Cell Distribution Width 13.3 % (12.1-15.1); White Blood Count 11.11 10^3/uL (3.29-11.43)
[2024-06-30 04:13] LABS: Lactate (Lactic Acid level) 0.5 mmol/L (0.5-2.2)
[2024-06-30 04:20] LABS: NT Pro B Type Natriuretic Pept 1055 pg/mL (0-125); Procalcitonin 0.24 ng/mL (0-0.5)
[2024-06-30 04:32] LABS: Creatine Phosphokinase 38 U/L (39-308)
[2024-06-30 04:44] LABS: INR 1.09 (0.8-1.2)
[2024-06-30 04:45] LABS: Partial Thromboplastin Time 59.9 SECONDS (23.9-36.7)
[2024-06-30 04:46] LABS: Albumin Level 3.8 g/dL (3.5-5.2); Alkaline Phosphatase 62 U/L (40-130); Blood Urea Nitrogen 41 mg/dL (8-23); C Reactive Protein 11.8 mg/L (0.0-4.9); Calcium 9.7 mg/dL (8.5-10.5); Carbon Dioxide 30 mmol/L (22-29); Chloride 92 mmol/L (98-107); Creatinine Clr Calc Pharmacy 32.3906; Globulin 1.3 g/dL (1.3-4.6); Glomerular Filtration Rate 26.9 mL/min (90-130); Glucose 214 mg/dL (65-115); Magnesium 1.7 mg/dL (1.7-2.3); Osmolality Calculated 293 mOsm/kg (285-295); Phosphorus 2.4 mg/dL (2.5-4.5); Sodium 133 mmol/L (136-145); Total Bilirubin 0.9 mg/dL (0.15-1.2); Total Protein 5.1 g/dL (6.6-8.7)
[2024-06-30 04:48] LABS: Anion Gap 14.5 (5-19); Potassium 3.5 mmol/L (3.5-5.1)
[2024-06-30 04:49] LABS: Alanine Aminotransferase 7 U/L (0-41); Aspartate Amino Transferase 11 U/L (0-40)
[2024-06-30] MEDS: piperacillin-tazobactam 3.375 GM in sodium chloride 0.9% (plus) 50 ML IV ×3 (05:13→19:51)
[2024-06-30] MEDS: pantoprazole 40 mg SDV IVP (05:25)
[2024-06-30 05:44] LABS: ABG PH Result 7.33 (7.35-7.45); Arterial Blood Gas Hematocrit 38.5 % (42-52); Base Excess ABG 5.8 mmol/L (-2.0-2.0); Blood Gas Allen Test Pos; Blood Gas Operator Identificat JDB; Blood Gas Sample Site Radial, right; Blood Gas Sample Type Arterial; HCO3 ABG 33.5 mmol/L (22-26); Oxygen Device NC; PO2 ABG 97.3 mmHg (80.0-100.0)
[2024-06-30 05:55] LABS: ABG PCO2 63.1 mmHg (35-45)
--- NOTE | 2024-06-30 07:00 | XRR_ITS ---
PROCEDURE INFORMATION: Exam: XR Chest Exam date and time: 06/30/2024 11:43 AM Age: 68 years old Clinical indication: Shortness of breath; Additional info: SOB TECHNIQUE: Imaging protocol: Radiologic exam of the chest. Views: 1 view. COMPARISON: CR (CHEST, ) 06/29/2024 1:09 PM FINDINGS: Tubes, catheters and devices: PICC line is seen on the right with its tip overlying the proximal SVC. Multi lead AICD device is noted on the left. Lungs: There is opacity at the left lung base obscuring the left hemidiaphragm. This may be related to layering pleural fluid, atelectasis, or a combination. Pleural spaces: Suspect pleural effusion on the left. No definite pneumothorax is identified. Heart/Mediastinum: The heart is enlarged. Bones/joints: Unremarkable. XR/XR chest 1V portable [id number] IMPRESSION: 1. Cardiomegaly. 2. Left basilar opacity not significantly changed.
[2024-06-30] MEDS: iohexol 350 mg/mL 500 mL Btl (per mL) IV (07:03)
[2024-06-30 07:46] LABS: Glucose Point of Care 181 mg/dL (70-110)
[2024-06-30] MEDS: budesonide 0.5 mg/2 mL Neb INHALATION ×2 (08:15→20:37)
[2024-06-30] MEDS: atorvastatin 40 mg Tablet PO (08:34)
[2024-06-30] MEDS: lamoTRIgine 100 mg Tablet 200 MG PO (08:34)
[2024-06-30] MEDS: aspirin 81 mg EC Tablet PO (08:34)
[2024-06-30] MEDS: docusate sodium 100 mg Capsule 200 MG PO (08:34)
[2024-06-30] MEDS: sennosides 8.6 mg Tablet 17.2 MG PO (08:34)
[2024-06-30] MEDS: lithium carbonate 300 mg Capsule PO (08:34)
[2024-06-30] MEDS: insulin lispro 100 unit/1 mL SUBCUT ×3 (08:35→18:14)
--- NOTE | 2024-06-30 08:39 | PM.PN ---
Subjective Subjective: Patient appears comfortable. No chest pain. Vitals/I&O/Wt Last Vital Signs Temp 98.6 F 06/30/24 07:45 Pulse 64 06/30/24 08:15 Resp 15 06/30/24 08:15 BP 115/54 06/30/24 07:45 Pulse Ox 96 06/30/24 08:15 O2 Del Method Nasal Cannula 06/30/24 08:15 O2 Flow Rate 4 06/30/24 08:15 FiO2 30 06/30/24 02:11 06/29/24 06/30/24 06/30/24 22:59 06:59 14:59 Intake Total 744.742 / 2879.867 728.427 / 3608.294 430.358 / 430.358 Output Total 100 / 100 2200 / 2300 Balance 644.742 / 2779.867 -1471.573 / 1308.294 430.358 / 430.358 Weight last 48 hrs Weight 220 lb 7.396 oz Weight 214 lb 8 oz Physical Exam Narrative: GENERAL: Patient is alert, awake . NECK: No jugular vein distension. [] HEENT: No cyanosis. No icterus. No pallor. [] HEART: Regular S1 and S2. Grade 2/6 systolic murmur LUNGS: Diminished air entry bilaterally CENTRAL NERVOUS SYSTEM: Grossly nonfocal. EXTREMITIES: 1+ edema Urinary Catheter Management: Cunningham: Cath Placed During This Visit: yes Reason for Continuing Indwelling Catheter: Accurate Measurement of Urinary Output in Critically Ill Patients Urinary Catheter Date of Insertion: 06/29/24 Urinary Catheter Time of Insertion: 13:59 Data 07/01/24 04:34 07/01/24 04:34 Micro: Microbiology 06/29/24 13:42 Blood Culture - Preliminary Blood SPECIMEN COLLECTED 06/29/24 13:40 Blood Culture - Preliminary Blood SPECIMEN COLLECTED A&P Assessment and plan (1) Shock: (2) Elevated troponin: (3) Hyperlipidemia, unspecified: (4) Cardiac resynchronization therapy defibrillator ([employer] A[employer]LYST-D) in place: Plan LV systolic function on echo appears slightly improved from before. IVC was not dilated on echocardiogram. Likely was over diuresed and developed hypotension secondary to that in setting of low LV systolic function. Pressor requirement is coming down. Lactate is normal. Creatinine improving. Monitor renal function and close I and Os. Thank you for involving us with care of this patient. We will continue to follow. Please call with questions. Attestations Medical Necessity Statement*: Care expected to cross 2 midnights. Coding Level of Care Code Acute Code for [facility] Fwd Diagnoses Shock R57.9 Elevated troponin R79.89 Hyperlipidemia, unspecified E78.5 Cardiac resynchronization therapy defibrillator ([employer] FIN[employer]CIAL ANALYST-D) in place Z95.810
[2024-06-30 10:34] LABS: Partial Thromboplastin Time 37.6 SECONDS (23.9-36.7)
[2024-06-30 10:42] LABS: Vancomycin Trough 10.4 ug/mL (10-15)
[2024-06-30] MEDS: DOPamine drip 400 MG/250 ML PREMIX 27.37 MG IV ×2 (11:38→20:33)
[2024-06-30 12:40] LABS: Glucose Point of Care 192 mg/dL (70-110)
--- NOTE | 2024-06-30 13:47 | P.PN_ITS ---
Subjective 2 Subjective: Patient was seen this morning, he is resting comfortably, alert oriented x 3, following all commands, no nausea, vomiting, chest pain no abdominal pain remains on 10 of Levophed, remains on dopamine, urine output has improved, spoke to cardiology, spoke to nursing staff Vitals/I&O/Wt Last Vital Signs Temp 98.9 F 06/30/24 13:00 Pulse 60 06/30/24 13:44 Resp 18 06/30/24 13:27 BP 124/78 06/30/24 13:00 Pulse Ox 98 06/30/24 13:29 O2 Del Method BiPAP 06/30/24 13:27 O2 Flow Rate 4 06/30/24 13:00 FiO2 30 06/30/24 13:29 06/29/24 06/30/24 06/30/24 22:59 06:59 14:59 Intake Total 744.742 / 2879.867 728.427 / 3608.294 1095.942 / 1095.942 Output Total 100 / 100 2200 / 2300 Balance 644.742 / 2779.867 -1471.573 / 9786.279 5029.942 / 1095.942 Weight last 48 hrs Weight 100 kg Weight 97.296 kg Physical Exam 2 Const: COMMON NORMALS: no acute distress and patient oriented x3 Resp: COMMON NORMALS: normal respiratory effort, No retractions, No use of accessory muscles and clear to auscultation bilaterally AUSCULTATION: clear to auscultation bilaterally Cardio: COMMON NORMALS: regular rate, regular rhythm, S1 normal heart sound present and S2 normal heart sound present RATE: regular rate RHYTHM: r egular rhythm HEART SOUNDS: S1 normal heart sound present and S2 normal heart sound present GI: COMMON NORMALS: Normal to inspection, nondistended, normoactive bowel sounds present and non-tender Extremity: COMMON NORMALS: no pedal edema Neuro: COMMON NORMALS: patient oriented x3 Psych: COMMON NORMALS: mental status grossly normal Urinary Catheter Management: Cunningham: Cath Placed During This Visit: yes Reason for Continuing Indwelling Catheter: Accurate Measurement of Urinary Output in Critically Ill Patients Urinary Catheter Date of Insertion: 06/29/24 Urinary Catheter Time of Insertion: 13:59 Sepsis: Is patient septic: Yes Focused sepsis exam performed: Yes F ocused sepsis exam: Cap refill less than 2 seconds, DP PT pulses palpable, warm bilateral extremities no mottling Date exam was performed: 06/30/24 Time exam was performed: 09:30 Data 06/30/24 03:20 06/30/24 03:20 Micro: Microbiology 06/29/24 13:42 Blood Culture - Preliminary Blood SPECIMEN COLLECTED 06/29/24 13:40 Blood Culture - Preliminary Blood SPECIMEN COLLECTED A&P Assessment and plan (1) Shock: (2) Cardiogenic shock: (3) NSTEMI (non-ST elevated myocardial infarction): (4) Acute hypoxic on chronic hypercapnic respiratory failure: (5) Acute renal failure: (6) Encephalopathy acute: (7) Acute on chronic systolic CHF (congestive heart failure), NYHA class 4: (8) Sepsis: Plan Acute hypoxic hypercarbic respiratory failure -Likely secondary to bilateral pleural effusions -Acute on chronic systolic CHF -Possibility of pneumonia Plan -Continue BiPAP therapy -Monitor in the ICU closely -Will consider diuresis based on clinical progress -Vancomycin -Zosyn -Blood cultures -Sputum cultures Shock -Likely cardiogenic shock -Concerns for possible septic shock Plan -Maintain MAP in 65 -Levophed currently at 10 -On dopamine -Will consider dopamine based on clinical progress -Follow clinical status closely Acute on chronic systolic CHF -History of ischemic cardiomyopathy, -CAD with NH 2016 -History of EF less than 15% -Defibrillator in place -Plan -Cardiology consulted -IV diuresis on hold -On pressors as above -Cardiac echo as above -Aspirin, statin Acute renal failure -Could be from diuresis, shock -Component of cardiorenal syndrome -Component of sepsis Plan -CT scan no obstructive uropathy -Renal ultrasound -Nephrology consulted -Stopped IV fluids due to concerns for fluid overload -Patient might require dialysis -Will consider Lasix therapy based on clinical progress NSTEMI -No chest pain complaints -Type I versus type II -Troponins, serial EKGs, telemetry monitoring -Cardiac echo -Heparin drip -Aspirin, statin Sepsis -Sepsis features met, given shock, respiratory failure, as above Acute encephalopathy -Neurochecks -Aspiration precautions -NIH stroke scale Hyperglycemia, A1c 6.1, low-dose sliding scale Full code Heparin drip for DVT prophylaxis Plan for today, continue to monitor respiratory status continue BiPAP currently on 10 of Levophed on dopamine drip, continue to monitor urine output improving spoke to cardiology spoke to nursing staff Attestations 2 Medical Necessity Statement*: Patient requires hospitalization for shock, multifactorial, NSTEMI, CHF, respiratory failure Coding Level of Care Code Critical Care >/= 30 minutes Critical care time (in minutes): 35 The high probability of a clinically significant, sudden or life threatening deterioration, as referenced in this documentation, required my full and direct attention, intervention and personal management. The critical care time shown is in addition to time spent performing any reported separately billable procedures and includes the following: [x] Data and vital sign review and interpretation [x ] Patient assessment, examination and intervention [x] Medication orders and management [x] Patient/Family updates as able [x] Care Coordination and Documentation. Diagnoses Shock R57.9 Cardiogenic shock R57.0 NSTEMI (non-ST elevated myocardial infarction) I21.4 Acute hypoxic on chronic hypercapnic respiratory failure J96.01; J96.12 Acute renal failure N17.9 Encephalopathy acute G93.40 Acute on chronic systolic CHF (congestive heart failure), NYHA class 4 I50.23 Sepsis A41.9
[2024-06-30] MEDS: norepinephrine 4 MG/250 ML BAG 22.5 MG IV (13:58)
[2024-06-30] MEDS: vancomycin 1,500 MG/300 ML PIGGYBACK 200 MG IV (14:46)
--- NOTE | 2024-06-30 15:27 | P.PN_ITS ---
Subjective 2 Subjective: no new c/o uop PICKED UP Medications: Reviewed: Yes Vitals/I&O/Wt Last Vital Signs Temp 98.0 F 06/30/24 15:15 Pulse 61 06/30/24 15:15 Resp 15 06/30/24 15:15 BP 113/67 06/30/24 15:00 Pulse Ox 95 06/30/24 15:15 O2 Del Method BiPAP 06/30/24 15:15 O2 Flow Rate 4 06/30/24 13:00 FiO2 30 06/30/24 13:29 06/30/24 06/30/24 06/30/24 06:59 14:59 22:59 Intake Total 728.427 / 3608.294 1340.442 / 1340.442 Output Total 2200 / 2300 1100 / 1100 Balance -1471.573 / 1308.294 240.442 / 240.442 Weight last 48 hrs Weight 100 kg Weight 97.296 kg Physical Exam 2 Narrative: No distress Decreased BS joseph per report S1S2 RRR per report + LE edema Urinary Catheter Management: Cunningham: Cath Placed During This Visit: yes Reason for Continuing Indwelling Catheter: Accurate Measurement of Urinary Output in Critically Ill Patients Urinary Catheter Date of Insertion: 06/29/24 Urinary Catheter Time of Insertion: 13:59 Data 06/30/24 03:20 06/30/24 03:20 Micro: Microbiology 06/29/24 13:42 Blood Culture - Preliminary Blood NEGATIVE TO DATE 06/29/24 13:40 Blood Culture - Preliminary Blood NEGATIVE TO DATE A&P Assessment and plan (1) Acute renal failure: 1. Acute kidney injury: In the setting of possibly cardiogenic shock, hypotension patient currently on dopamine and Levophed. Baseline creatinine was 1.1 in April 2024., cR peaked @ 3.1, improved to 2.4 today UOP picked up 2. Shock, likely cardiogenic, on Levophed and dopamine currently 3. Coronary previous disease with NSTEMI, on heparin drip 4. Acute on chronic respiratory failure patient evaluated using audiovisual cart. Time spent 40 minutes. Attestations 2 Medical Necessity Statement*: per medicne Coding Level of Care Code Acute Code for [facility] Fwd Diagnoses Acute renal failure N17.9
[2024-06-30 18:17] LABS: Glucose Point of Care 219 mg/dL (70-110)
[2024-06-30] MEDS: zolpidem 5 mg Tablet 10 MG PO (20:16)
[2024-06-30] MEDS: heparin 5,000 unit/mL INJ 1 mL 5000 UNIT SUBCUT (21:28)
[2024-06-30] MEDS: mirtazapine 30 mg Tablet PO (21:28)
[2024-06-30 21:35] LABS: Glucose Point of Care 159 mg/dL (70-110)
[2024-07-01] VITALS (87 sets, daily range): BP systolic 95–160; BP diastolic 48–102; PULSE 60–95; RESP 12–31; TEMP 36.6–36.9; O2SAT 82–100; BMI 33.2
[2024-07-01] MEDS: ipratropium-albuterol 3 mL Neb INHALATION ×4 (03:14→20:52)
[2024-07-01 03:42] LABS: ABG PCO2 53.6 mmHg (35-45); Arterial Blood Gas Hematocrit 34.1 % (42-52); Base Excess ABG 6.8 mmol/L (-2.0-2.0); Blood Gas Allen Test Pos; Blood Gas Operator Identificat SAM; Blood Gas Sample Site Radial, right; Blood Gas Sample Type Arterial; HCO3 ABG 32.9 mmol/L (22-26); Oxygen Device BIPAP; PO2 ABG 67.6 mmHg (80.0-100.0); PO2 FiO2 Ratio Arterial Blood 225
[2024-07-01 05:08] LABS: Basophils % 0.2 %; Eosinophils # 0.1 10^3/uL (0.0-0.8); Eosinophils % 1.5 %; Hematocrit 33.6 % (37-53); Lymphocytes # 1.2 10^3/uL (0.8-4.8); Lymphocytes % 13.6 %; Mean Corpuscular Hemoglobin 31.1 pg (27-33); Mean Corpuscular Volume 100.6 fl (82-101); Mean Platelet Volume 10.6 fL (7.4-10.4); Monocytes # 0.8 10^3/uL (0.2-0.9); Monocytes % 8.9 %; Neutrophils # 6.84 10^3/uL (1.8-7.7); Neutrophils % 75.4 %; Nucleated Red Blood Cells % 0 %; Platelet Count 141 10^3/cmm (157-399); Red Blood Count 3.34 10^6/uL (3.85-5.65); Red Cell Distribution Width 13.4 % (12.1-15.1); White Blood Count 9.09 10^3/uL (3.29-11.43)
[2024-07-01] MEDS: piperacillin-tazobactam 3.375 GM in sodium chloride 0.9% (plus) 50 ML IV ×3 (05:20→20:13)
[2024-07-01] MEDS: pantoprazole 40 mg SDV IVP (05:21)
[2024-07-01 05:26] LABS: INR 0.97 (0.8-1.2)
[2024-07-01 05:37] LABS: Albumin Level 3.9 g/dL (3.5-5.2); Alkaline Phosphatase 69 U/L (40-130); Blood Urea Nitrogen 32 mg/dL (8-23); C Reactive Protein 17.4 mg/L (0.0-4.9); Calcium 11.1 mg/dL (8.5-10.5); Carbon Dioxide 31 mmol/L (22-29); Chloride 96 mmol/L (98-107); Creatinine Clr Calc Pharmacy 60.6068; Globulin 1.9 g/dL (1.3-4.6); Glomerular Filtration Rate 54.6 mL/min (90-130); Glucose 155 mg/dL (65-115); Magnesium 1.8 mg/dL (1.7-2.3); Osmolality Calculated 292 mOsm/kg (285-295); Phosphorus 1.9 mg/dL (2.5-4.5); Sodium 136 mmol/L (136-145); Total Bilirubin 0.8 mg/dL (0.15-1.2); Total Protein 5.8 g/dL (6.6-8.7)
[2024-07-01 05:38] LABS: Alanine Aminotransferase 8 U/L (0-41); Aspartate Amino Transferase 13 U/L (0-40)
[2024-07-01 05:45] LABS: NT Pro B Type Natriuretic Pept 811 pg/mL (0-125); Procalcitonin 0.15 ng/mL (0-0.5)
[2024-07-01 05:56] LABS: Creatine Phosphokinase 35 U/L (39-308)
--- NOTE | 2024-07-01 07:17 | P.PN_ITS ---
Subjective 2 Subjective: uop PICKED UP Cr better Medications: Reviewed: Yes Vitals/I&O/Wt Last Vital Signs Temp 98.5 F 07/01/24 05:00 Pulse 67 07/01/24 07:00 Resp 24 H 07/01/24 07:00 BP 106/61 07/01/24 07:00 Pulse Ox 96 07/01/24 07:00 O2 Del Method Nasal Cannula 07/01/24 05:30 O2 Flow Rate 3 07/01/24 05:30 FiO2 30 07/01/24 03:15 06/30/24 07/01/24 07/01/24 22:59 06:59 14:59 Intake Total 995.331 / 2335.773 437.625 / 2773.398 Output Total 700 / 1800 1200 / 3000 Balance 295.331 / 535.773 -762.375 / -226.602 Weight last 48 hrs Weight 99 kg Weight 100 kg Physical Exam 2 Narrative: No distress , on 4L nc Decreased BS joseph per report S1S2 RRR per report + LE edema Urinary Catheter Management: Cunningham: Cath Placed During This Visit: yes Reason for Continuing Indwelling Catheter: Accurate Measurement of Urinary Output in Critically Ill Patients Urinary Catheter Date of Insertion: 06/29/24 Urinary Catheter Time of Insertion: 13:59 Data 07/01/24 04:34 07/01/24 04:34 Micro: Microbiology 06/29/24 13:42 Blood Culture - Preliminary Blood NEGATIVE TO DATE 06/29/24 13:40 Blood Culture - Preliminary Blood NEGATIVE TO DATE A&P Assessment and plan (1) Acute renal failure: 1. Acute kidney injury: In the setting of possibly cardiogenic shock, hypotension patient currently on dopamine and Levophed. Baseline creatinine was 1.1 in April 2024., cR peaked @ 3.1, improved to 2.3 today UOP picked up Monitor 2. Shock, likely cardiogenic, on Levophed and dopamine currently 3. Coronary previous disease with NSTEMI, on heparin drip 4. Acute on chronic respiratory failure patient evaluated using audiovisual cart. Time spent 40 minutes. Attestations 2 Medical Necessity Statement*: per medicine team Coding Level of Care Code Acute Code for [facility] Fwd Diagnoses Acute renal failure N17.9
[2024-07-01] MEDS: budesonide 0.5 mg/2 mL Neb INHALATION ×2 (07:49→20:52)
[2024-07-01 07:51] LABS: Glucose Point of Care 147 mg/dL (70-110)
[2024-07-01] MEDS: sennosides 8.6 mg Tablet 17.2 MG PO (08:41)
[2024-07-01] MEDS: VANCOMYCIN ADD-Vantage 1,000 MG in 0.9% NaCl ADD-Vantage 250 ML 250 MG IV ×2 (08:41→20:10)
[2024-07-01] MEDS: aspirin 81 mg EC Tablet PO (08:41)
[2024-07-01] MEDS: docusate sodium 100 mg Capsule 200 MG PO (08:41)
[2024-07-01] MEDS: lamoTRIgine 100 mg Tablet 200 MG PO (08:41)
[2024-07-01] MEDS: lithium carbonate 300 mg Capsule PO (08:41)
[2024-07-01] MEDS: atorvastatin 40 mg Tablet PO (08:42)
[2024-07-01] MEDS: insulin lispro 100 unit/1 mL SUBCUT ×3 (08:42→17:48)
[2024-07-01] MEDS: heparin 5,000 unit/mL INJ 1 mL 5000 UNIT SUBCUT ×2 (10:07→21:00)
--- NOTE | 2024-07-01 11:09 | P.PN_ITS ---
<Statement entered by Terry Jean M.D - 07/02/24 00:28> Patient was evaluated and cared for in conjunction with an advanced practice practitioner. I personally examined the patient and reviewed the chart and all pertinent data including imaging, telemetry, and laboratory results. I discussed the patient in detail with the advanced practice practitioner. Please see their note for complete progress note, results and agreed upon plan of care for the patient. Patient is feeling well. No chest pain. GENERAL: Patient is alert and oriented x 3. HEART: Regular S1 and S2 LUNGS: Diminished air entry bilaterally EXTREMITIES: Lower extremities with no edema Patient's pressor requirement is minimal now. Likely developed hypotension secondary to overdiuresis and low EF. Improving overall. Thank you for involving us with care of this patient. Please call with questions. Subjective 2 Subjective: This is a very pleasant gentleman who we are treating for cardiogenic shock. Currently he is off of Levophed and on dopamine and this is getting weaned. Blood pressure stable 116/76 heart rate of send 67. He appears euvolemic. Creatinine is stable at 1.3. EF is 25 to 30% which is improved from previous echo. EKG shows paced rhythm. Overall he has no complaints. He states he has no difficulty breathing as well at this time Vitals/I&O/Wt Last Vital Signs Temp 98.3 F 07/01/24 07:45 Pulse 67 07/01/24 11:00 Resp 28 H 07/01/24 11:00 BP 116/76 07/01/24 11:00 Pulse Ox 98 07/01/24 11:00 O2 Del Method Nasal Cannula 07/01/24 11:00 O2 Flow Rate 3 07/01/24 07:49 FiO2 30 07/01/24 03:15 06/30/24 07/01/24 07/01/24 22:59 06:59 14:59 Intake Total 995.331 / 2335.773 437.625 / 2773.398 746.419 / 746.419 Output Total 700 / 1800 1200 / 3000 Balance 295.331 / 535.773 -762.375 / -226.602 746.419 / 746.419 Weight last 48 hrs Weight 218 lb 4.122 oz Weight 220 lb 7.396 oz Physical Exam 2 Narrative: General: No apparent distress, healthy appearing, well nourished HENMT: normoceophalic Muskuloskeletal: Full ROM Lymphatic: no lymphedema noted Respiratory: Normal respiratory effort, clear to auscultation bilaterally throughout all lung aguayo, no use of accessory muscles Cardio: No JVD, regular rate, regular rhythm, S1 S2 normal, no murmurs, peripheral pulses 2+ radial palpated bilaterally GI: Normal to inspection, nondistended Extremities: Full ROM, normal, normal capillary refill, no cyanosis or edema Neuro: Alert and oriented x4, no focal motor deficits Psych: Affect normal, denies suicidal ideation, mental status grossly normal Skin: No rashes or lesions noted, no wounds Urinary Catheter Management: Cunningham: Cath Placed During This Visit: yes Reason for Continuing Indwelling Catheter: Accurate Measurement of Urinary Output in Critically Ill Patients Urinary Catheter Date of Insertion: 06/29/24 Urinary Catheter Time of Insertion: 13:59 Data 07/01/24 04:34 07/01/24 04:34 Micro: Microbiology 06/29/24 13:42 Blood Culture - Preliminary Blood NEGATIVE TO DATE 06/29/24 13:40 Blood Culture - Preliminary Blood NEGATIVE TO DATE A&P Assessment and plan (1) Shock: (2) Elevated troponin: (3) Hyperlipidemia, unspecified: (4) Cardiac resynchronization therapy defibrillator (ARRT TECHNOLOGIST-D) in place: Plan The plan for this gentleman is to continue weaning off of dopamine. Patient has been off of Levophed. Creatinine has improved to 1.3. Continue aspirin 81 mg. Continue atorvastatin 40 mg. In the future will add goal-directed medical therapy as blood pressure and creatinine allows. For now patient still requiring some pressure support, but overall improving. Attestations 2 Medical Necessity Statement*: Patient's stay expected to cross 2 midnights due to acute CHF exacerbation requiring diuresis and pressure support. Coding Level of Care Code Acute Code for Chg Fwd Diagnoses Shock R57.9 Elevated troponin R79.89 Hyperlipidemia, unspecified E78.5 Cardiac resynchronization therapy defibrillator (ARRT TECHNOLOGIST-D) in place Z95.810
[2024-07-01 12:43] LABS: Glucose Point of Care 151 mg/dL (70-110)
--- NOTE | 2024-07-01 14:01 | PC.SOCIAL ---
IMM Updated Updated pt on IMM. No questions voiced. Provided pt a copy. Initialed, dated, & timed copy in chart.
--- NOTE | 2024-07-01 14:54 | P.PN_ITS ---
Vitals/I&O/Wt Last Vital Signs Temp 98.3 F 07/01/24 07:45 Pulse 64 07/01/24 14:00 Resp 18 07/01/24 13:48 BP 128/79 07/01/24 14:00 Pulse Ox 99 07/01/24 14:00 O2 Del Method Nasal Cannula 07/01/24 14:00 O2 Flow Rate 3 07/01/24 13:48 FiO2 30 07/01/24 03:15 06/30/24 07/01/24 07/01/24 22:59 06:59 14:59 Intake Total 995.331 / 2335.773 437.625 / 2773.398 968.419 / 968.419 Output Total 700 / 1800 1200 / 3000 800 / 800 Balance 295.331 / 535.773 -762.375 / -226.602 168.419 / 168.419 Weight last 48 hrs Weight 99 kg Weight 100 kg Physical Exam 2 Const: COMMON NORMALS: no acute distress and patient oriented x3 Resp: COMMON NORMALS: normal respiratory effort, No retractions, No use of accessory muscles and clear to auscultation bilaterally AUSCULTATION: clear to auscultation bilaterally Cardio: COMMON NORMALS: regular rate, regular rhythm, S1 normal heart sound present and S2 normal heart sound present RATE: regular rate RHYTHM: r egular rhythm HEART SOUNDS: S1 normal heart sound present and S2 normal heart sound present GI: COMMON NORMALS: Normal to inspection, nondistended, normoactive bowel sounds present and non-tender Extremity: COMMON NORMALS: no pedal edema Neuro: COMMON NORMALS: patient oriented x3 Psych: COMMON NORMALS: mental status grossly normal Urinary Catheter Management: Cunningham: Cath Placed During This Visit: yes Reason for Continuing Indwelling Catheter: Accurate Measurement of Urinary Output in Critically Ill Patients Urinary Catheter Date of Insertion: 06/29/24 Urinary Catheter Time of Insertion: 13:59 Data 07/01/24 04:34 07/01/24 04:34 Micro: Microbiology 06/29/24 13:42 Blood Culture - Preliminary Blood NEGATIVE TO DATE 06/29/24 13:40 Blood Culture - Preliminary Blood NEGATIVE TO DATE A&P Assessment and plan (1) Shock: (2) Cardiogenic shock: (3) NSTEMI (non-ST elevated myocardial infarction): (4) Acute hypoxic on chronic hypercapnic respiratory failure: (5) Acute renal failure: (6) Encephalopathy acute: (7) Acute on chronic systolic CHF (congestive heart failure), NYHA class 4: (8) Sepsis: Plan Acute hypoxic hypercarbic respiratory failure -Likely secondary to bilateral pleural effusions -Acute on chronic systolic CHF -Possibility of pneumonia? Plan -Continue BiPAP therapy -Monitor in the ICU closely -Will consider diuresis based on clinical progress -Vancomycin -Zosyn -Blood cultures -Sputum cultures Shock -Likely cardiogenic shock -Concerns for possible septic shock Plan -Maintain MAP in 65 -Levophed currently at 10 -On dopamine -Will consider dopamine based on clinical progress -Follow clinical status closely Acute on chronic systolic CHF -History of ischemic cardiomyopathy, -CAD with LA 2015 -History of EF less than 15% -Defibrillator in place -Plan -Cardiology consulted -IV diuresis on hold -On pressors as above -Cardiac echo as above -Aspirin, statin Acute renal failure -Could be from diuresis, shock -Component of cardiorenal syndrome -Component of sepsis Plan -CT scan no obstructive uropathy -Renal ultrasound -Nephrology consulted -Stopped IV fluids due to concerns for fluid overload -Patient might require dialysis -Will consider Lasix therapy based on clinical progress NSTEMI -No chest pain complaints -Type I versus type II -Troponins, serial EKGs, telemetry monitoring -Cardiac echo -Heparin drip discontinued currently on subcu heparin -Aspirin, statin Sepsis, resolving -Sepsis features met, given shock, respiratory failure, as above Acute encephalopathy -Neurochecks -Aspiration precautions -NIH stroke scale Hyperglycemia, A1c 6.1, low-dose sliding scale Full code Heparin drip for DVT prophylaxis Plan for today, patient remains on dopamine at 5, wean off dopamine, will have patient get up to the side of the bed with physical therapy, check orthostats, continue to monitor closely, Attestations 2 Medical Necessity Statement*: Patient requires hospitalization for shock, likely cardiogenic shock, NSTEMI, Diagnoses Shock R57.9 Cardiogenic shock R57.0 NSTEMI (non-ST elevated myocardial infarction) I21.4 Acute hypoxic on chronic hypercapnic respiratory failure J96.01; J96.12 Acute renal failure N17.9 Encephalopathy acute G93.40 Acute on chronic systolic CHF (congestive heart failure), NYHA class 4 I50.23 Sepsis A41.9
[2024-07-01 17:43] LABS: Glucose Point of Care 156 mg/dL (70-110)
[2024-07-01 20:38] LABS: Glucose Point of Care 148 mg/dL (70-110)
[2024-07-01] MEDS: zolpidem 5 mg Tablet 10 MG PO (20:59)
[2024-07-01] MEDS: mirtazapine 30 mg Tablet PO (20:59)
[2024-07-02] VITALS (25 sets, daily range): BP systolic 97–163; BP diastolic 68–94; PULSE 60–96; RESP 14–28; TEMP 36.6–36.9; O2SAT 95–99
[2024-07-02] MEDS: ipratropium-albuterol 3 mL Neb INHALATION ×3 (02:17→14:16)
[2024-07-02] MEDS: piperacillin-tazobactam 3.375 GM in sodium chloride 0.9% (plus) 50 ML IV ×3 (04:30→19:52)
[2024-07-02 05:28] LABS: Basophils % 0.3 %; Eosinophils # 0.1 10^3/uL (0.0-0.8); Eosinophils % 1.3 %; Hematocrit 33.7 % (37-53); Lymphocytes # 1.4 10^3/uL (0.8-4.8); Lymphocytes % 14.6 %; Mean Corpuscular HGB Conc 31.2 g/dL (30-55); Mean Corpuscular Hemoglobin 31.9 pg (27-33); Mean Corpuscular Volume 102.4 fl (82-101); Mean Platelet Volume 11.2 fL (7.4-10.4); Monocytes # 0.9 10^3/uL (0.2-0.9); Monocytes % 9.3 %; Neutrophils # 6.86 10^3/uL (1.8-7.7); Nucleated Red Blood Cells % 0 %; Platelet Count 144 10^3/cmm (157-399); Red Blood Count 3.29 10^6/uL (3.85-5.65); Red Cell Distribution Width 13.5 % (12.1-15.1); White Blood Count 9.27 10^3/uL (3.29-11.43)
--- OUTSIDE RECORDS SUMMARY | 2024-07-02 05:37 | XMS_ITS | Continuity of Care Document ---
Author Organization [facility] Address [address] [place] [address] Phone Care Team Providers Care Tester Compressed Gases Name Role Phone SANDOVAL ORDONEZ PA-C Unavailable Unavailable Allergies, Adverse Reactions, Alerts Substance Reaction Status Criticality No Known Allergies Active No Inform ation Medications Medication Instructions Dosage Effective Dates (start - stop) Status Comments lisinopril 10 mg tablet take 1 tablet by oral route every day 10 MG - Active atorvastatin 80 mg tablet take 1 tablet by oral route every day 80 MG - Active omeprazole 20 mg tablet,delayed release take 1 by Oral route once 1 - Active Vitamin D3 1,000 unit capsule - Active divalproex 500 mg tablet,delayed release take 1 tablet by oral route 2 times every day 500 MG - Active lithium carbonate 300 mg tablet take 1 tablet by oral route 3 times every day 300 MG - Active ibuprofen 800 mg tablet take 1 tablet by oral route 3 times every day with food 800 MG - Active Robaxin 500 mg tablet take 1 Tablet by o ral route 2 times every day 500 MG - Active [place] 5 mg-325 mg tablet take 1 tablet by oral route every 4 - 6 hours as needed for pain - Active Problems Condition Type Effective Dates (start - stop) Clini kes[facility]wn Status Comments No Known Problems Procedures Procedure Date OFFICE/OUTPATIENT VISIT, NEW Advance Directives Directive Yes / No Effective Date File Name No Information Encounters Encounter Description Practice Location Reason(s) For Visit Diagnoses Date Provider Providers Copied on Encounter [facility] , [address], [place], [place], [id number], [place] tel:[phone] [place] No Information JOSÉ LUIS NICK. [address], [place], [id number], [place]. tel:[phone] OFFICE/OUTPAT IENT VISIT, [facility] , [address] [place] [address], [place], [place], [id number], [place] tel:[phone] [place] back pain (chief complaint) Chronic pain No Information Family History Family Member Type Diagnosis Age At Onset No Information Payers Payer name Insurance type Covered alliance party ID Rola harris(s) [employer] CI [id number] [facility] Medicare Complete CI [id number] Social History Type Description Quantity Date Captured Comments Alcohol Use Details Unknown Caffeine Use Details Unknown Tobacco Use Status No Information Smoking Status No Information Sex Male Chief Complaint And Reason For Visit No Information Reason For Referral Reason For Referral No Information History Of Present Illness Encounter Date Complaint History Of Prese nt Illness back pain (comments) NPT HERE TO EST WITH CHRONIC PAIN, WAS SEEING PAIN [facility] BUT WAS TOLD NO LONGER ACCEPT HIS INSUR. BEEN OUT OF PAIN MED FOR OVER A MONTH AND HERE BASICALLY WANT TO GET PAIN MED. CUT ME OFF IN THE MIDDLE OF INTRODUCTION AND ASK STRAIGHT UP FOR PAIN MED. I ADVICE I DO NOT DO PAIN [facility], ESPECIALLY ON FIRST VISIT. WILL NEED EVAL AND EXAM AND IF NEEDED, REFER TO PAIN [facility]. HE GOT STAND UP AND WALKED OUT. NO EXAM WAS DONE. back pain Onset: 20 years ago. Severity level is 10. The problem is fluctuating. It occurs persistently. Location of pain is lower back. Pain is radiated to the right arm and RIGHT HIP. Functional Status Date Functional Assessmen t No Information Instructions Date Instruction Additional Infor mation No Information Assessments Type Assessment Date No Information Patient Care Teams Name Effective Dates (start - stop) Status Members No Information
--- OUTSIDE RECORDS SUMMARY | 2024-07-02 05:38 | XMS_ITS | Data Portability ---
Author Organization [place] - [employer], [facility] Address [address] [place] [address] Assessment No assessment recorded. Plan of Treatment Reminders Order Date Submit Date Provider Last Modified By Organization Details Last Modified Time Details Appointments None recorded. Lab None recorded. Referral None recorded. Procedures None recorded. Surgeries None recorded. Imaging None recorded. Medication Orders Roseville 10 mg-325 mg tablet 2019 020 [facility] #[id number], [address] [place], [place], [id number], 0 15:52:16 gabapentin 600 mg tablet 2019 020 [facility] #[id number], [address] [place], [place], [id number], 0 15:51:52 Roseville 10 mg-325 mg tablet 2019 020 [facility] #[id number], [address] [place], [place], [id number], 0 03:04:05 gabapentin 600 mg tablet 2019 020 [facility] #[id number], [address] [place], [place], [id number], 0 12:24:29 Patient TargetsNo targets recorded. Patient Instructions Encounter Date Encounter Id Patient Instructions Last Modified By Organization Details Last Modified Time 10/01/2019 [id number] CHRONIC PAIN SYNDROME: Treatment and management discussed, natural progression and history of disease discussed with patient. Patient is aware of rationale of pain management plan, discussed clinic policy on controlled substance. Opioid medication Medication management as discussed with patient. Risks of medication have been discussed which includes but not limited to medication dependance, hyperalgesia (increased pain due to opioid medication) tolerance, discussed how tolerance can limit the effectiveness of opioids for skilled nursing pain management. Other side effects may include but not limited to nausea/vomiting, rash, pruritus, dry mouth, respiratory depression, sedation, depression, accidental overdose, suicide, confusion, changes in cognition, hormonal imbalance. Specific risks discussed with the patient including not to operate vehicle while taking opioids while driving because of increased risks of accidents. They have been told not to drink Alcohol while using the medications. I advised patient to discuss side effects, contraindications and interactions with their pharmacist as well. Patient in agreement with the contract. Pain contract reiterated and reviewed, all questions and concerns were answered to patient's full satisfaction. Patient advised not to drive while on medications and not to use alcohol while on the above medications. The patient has been informed that [facility] Pain management conforms to all the bylaws of [place] medical board. Patient understands that they will not receive any pain related medication from any other source/provider. [place] WORKPLACE RELATIONS ADVISER/ Pharmacy profile was reviewed. No aberrant behavior or sign of abuse noted. Patient will follow up with her PCP for all symptoms that are not related to pain. Non pharmacological measures such as heat, ice, interventional procedures, physical therapy, patient care representative, deep tissue massage, acupuncture, TENS units and exercise and rest have all been strongly encouraged. I had a long discussion with the patient that the therapeutic activities services worker use of opioid medications will only decrease the body? s tolerance for and natural ability to fight pain. These medications eventually lead to opioid-induced hyperalgesia in which the pain experienced is severely worse than that which a normal body would perceive. To alleviate pain we must work on weaning down on these medications in order to slowly re-establish the body? s tolerance for pain and decrease reliance. I also explained that a combination of benzodiazepines and opioids is dangerous and can lead to accidental overdose. Patient was also advised that if they are taking any kind of benzodiazepines, sleeping aids or any kind of central nervous system depressant drugs that can cause drowsiness they should talk to their prescribing physicians to start tapering them off those as there is reported increased incidence of accidental overdose and when these medications are combined with opioids. At this time I would like to get the x-ray of his lumbar spine to see his the hardware position and see if he might be a candidate for lumbar facet denervation. At this time we will continue with the medication management but will increase his gabapentin to 600 mg twice a day and increase it up to three times a day as tolerated. Will continue with his Roseville 10/325 Q6 hours PRN severe pain. Medication management: 1) Rose[place] 10/325 to be used on a PRN basis for severe pain. 2) Gabapentin 600 mg twice a day and increase it up to three times a day as tolerated. Follow up in 1 month. ntung Not available 10/07/2019 19:22:05 10/30/2019 [id number] CHRONIC PAIN SYNDROME: Treatment and management discussed, natural progression and history of disease discussed with patient. Patient is aware of rationale of pain management plan, discussed clinic policy on controlled substance. Opioid medication Medication management as discussed with patient. Risks of medication have been discussed which includes but not limited to medication dependance, hyperalgesia (increased pain due to opioid medication) tolerance, discussed how tolerance can limit the effectiveness of opioids for therapeutic activities services worker pain management. Other side effects may include but not limited to nausea/vomiting, rash, pruritus, dry mouth, respiratory depression, sedation, depression, accidental overdose, suicide, confusion, changes in cognition, hormonal imbalance. Specific risks discussed with the patient including not to operate vehicle while taking opioids while driving because of increased risks of accidents. They have been told not to drink Alcohol while using the medications. I advised patient to discuss side effects, contraindications and interactions with their pharmacist as well. Patient in agreement with the contract. Pain contract reiterated and reviewed, all questions and concerns were answered to patient's full satisfaction. Patient advised not to drive while on medications and not to use alcohol while on the above medications. The patient has been informed that [facility] conforms to all the bylaws of [place] medical board. Patient understands that they will not receive any pain related medication from any other source/provider. [place] WORKPLACE RELATIONS ADVISER/ Pharmacy profile was reviewed. No aberrant behavior or sign of abuse noted. Patient will follow up with her PCP for all symptoms that are not related to pain. Non pharmacological measures such as heat, ice, interventional procedures, physical therapy, patient care representative, deep tissue massage, acupuncture, TENS units and exercise and rest have all been strongly encouraged. I had a long discussion with the patient that the therapeutic activities services worker use of opioid medications will only decrease the body? s tolerance for and natural ability to fight pain. These medications eventually lead to opioid-induced hyperalgesia in which the pain experienced is severely worse than that which a normal body would perceive. To alleviate pain we must work on weaning down on these medications in order to slowly re-establish the body? s tolerance for pain and decrease reliance. I also explained that a combination of benzodiazepines and opioids is dangerous and can lead to accidental overdose. Patient was also advised that if they are taking any kind of benzodiazepines, sleeping aids or any kind of central nervous system depressant drugs that can cause drowsiness they should talk to their prescribing physicians to start tapering them off those as there is reported increased incidence of accidental overdose and when these medications are combined with opioids. Patient's urine drug screen was the discussed with him. Explain to the patient that his urine drug screen was positive for fentanyl, oxycodone and marijuana. Patient states that he has a marijuana card. Explain to the patient that he did not mention that at his the intake paperwork that he had a marijuana card otherwise I would have told him at that very time that I will not be able to prescribe him opioids. Explain to the patient that as he is using marijuana at this time I will not be able to prescribe him any opioids at this time but we can continue with the other treatment plans like doing interventional procedures. Patient was given the option that if he wants to continue with the other treatment plan he can make a follow up appointment otherwise he will have to go back to his primary care physician for further management. Medication management: 1) One last prescription for Roseville 10 325 was given to the patient. 2) Gabapentin 600 mg twice a day and increase it up to three times a day as tolerated. Follow up PRN. Total time spent about 15 minutes on encounter including review of previous records, H&P, Pharmacy profile and talking to patient and counseling and coordination of care and addressing concerns. Counseling included low impact exercise and stretching techniques, healthy diet, conservative treatment for chronic pain, and appropriate use and side effects of medication. ntung Not available 10/30/2019 12:28:11 Reason for Referral None Reported. Results Created Date Observation Date Name Description Value Unit Range Abnormal Flag Note LastModifiedBy Organization Detail LastModifiedTime Result Notes None recorded. Procedures Surgical History Date Name Laterality Status Provider Name and Address Organization Details Recorded Time 05/08/2014 Anes hrna rpr lmbr&vnt&/ dehs completed Not Available [facility] 01/30/2018 11:41:10 Imaging Results None recorded. Procedure Notes None recorded. Medical Equipment None Reported. Medications Name Sig Start Date Stop Date Status Note LastModified by Organization Details LastModified Time hydroco/apap tab 10-325mg active Not Available Not Available Not Available gabapentin 600 mg tabs active Not Available Not Available Not Available atorvastatin calcium 80 mg tabs active Not Available Not Available Not Available gabapentin 600 mg tablet TAKE 1 TABLET BY MOUTH THREE TIMES DAILY DIRECTED active Not Available Not Available No t Available pantoprazole 40 mg tablet,delayed release active Not Available Not Available Not Available lisinopril 10 mg tablet active Not Available Not Available No t Available gabapentin 300 mg capsule active Not Available Not Available N ot Available doxazosin 4 mg tablet active Not Available Not Available Not Available Roseville 10 mg-325 mg tablet Take 1 tablet every 8 hours by oral route as needed for 30 days. 2019 active Not Available Not Available Not Avai lable Vitals None Recorded Social History Question Answer Notes LastModified by Organizat ion Details LastModified Time Tobacco Smoking Status Current Every Day Smoker Not Available Critical [facility] hospital 02/02/2018 13:38:54 What Was The Date Of Your Most Recent Tobacco Screening? 02/02/2018 Information n ot available 12/20/2018 Sex: Unknown Functional Status None recorded. Mental Status None recorded. Family History Relationship Description Onset Age of this Age Resolved Age Notes LastModified by Organization Details LastModified Time Father Family history of Myocardial infarction [email or web address] Not available 10/2017 02:12:52 Father Family history of diabetes mellitus [email or web address] Not available 10/2017 02:12:52 Mother Family history of Depression [email or web address] Not available 10/2017 02:12:52 Mother Family history of Arthritis [email or web address] Not available 10/2017 02:12:52 Mother Family history of malignant neoplasm [email or web address] Not available 10/2017 02:12:52 Medical History No medical history recorded. Past Encounters Encounter ID Performer Location Encounter Start Date Encounter Closed Date Diagnosis/Indication Diagnosis SNOMED-CT Code Diagnosis ICD10 Code Diagnosis Note [id number] Areli Gomez MD [facility] [address] [place] [address] 10/01/2019 13:58:19 10/01/2019 14:59:05 Lumbar spondylosis 910865455 M47.896 Degenerati on of lumbar intervertebral disc 58340323 M51.36 History of lumbar fusion 0709936472 9106 Z98.1 Chronic low back pain 27 6138403 M54.5 [id number] MD [facility] [address],[place] [id number] [place] [address] 10/30/2019 11:50:50 10/30/2019 14:41:25 Lumbar spondylosis 932759302 M47.896 Degenerati on of lumbar intervertebral disc 30372153 M51.36 History of lumbar fusion 0174503306 9106 Z98.1 Chronic low back pain 27 4698151 M54.5 Health Concerns Section Related Observation LastModified by Organization Detai ls LastModified Time None Recorded Concern Status LastModified by Organization Details LastModified Time None Recorded Advance Directives Directive None Recorded Payers Encounter Date Sequence Insurance Name Policy Number Policy Ferro Covered Member ID Ferro Member ID Guarantor Name 10/01/2019 1 [facility] [place] - MEDICARE COMPLETE (MEDICARE REPLACEMENT HMO[id number] Estefan[facility] [id number] Jim Estefanía 10/30/2019 1 [facility] [place] - MEDICARE COMPLETE (MEDICARE REPLACEMENT HMO) [facility] Jim Le [id number] Jim Le Notes Date Note Type Note Provider Name and Address Organization Details Recorded Time 10/01/2019 text/html This is a 63 yea r old Gentlemen who presents to the office for evaluation of the above symptoms which are chronic low back pain with radiation to legs and chronic neck pain. Patient is accompanied by his . Patient states that he has been having these symptoms for many years and over time they have been getting worse. Denies any history of injury or trauma. Patient gives a history of lumbar fusion in 2015. Patient states that the surgery did help with his pain but he still has pain in his lower back. Patient states that pain is worse in the Lower back and he does C/O pain mid back and neck also. Patient rates their symptoms as 8/10 Patient states that the pain is present all the time and describes the pain as Sharp dull aching throbbing and burning in nature.. Other associated symptoms include Numbness and tingling, locking stiffness instability and weakness. Patient states that Pain is worse at night time. Coughing and sneezing does make the symptoms worse. Walking for long distance can make the pain worse and she can walk more than 3 blocks before her pain gets worse. Resting the legs or bending forward has no effect on her symptoms. Patient denies any bowel or bladder incontinence problem. None of the activities including sitting, standing, walking, laying down, raising from chair or physical activity makes any changes in his symptoms. Patient has tried some injections in the past without any improvement. Patients lumbar spine surgery was done by Dr. Patsy Gomez MD [address], [place], [address], [facility] - [employer] 10/07/2019 19:22:16 10/30/2019 text/html This is a 63 yea r old Gentlemen who presents to the office for followup evaluation of the above symptoms which are chronic low back pain with radiation to legs and chronic neck pain. Patient states that he's doing pretty well with the medication management. Patient denies any side effects or complications from the medication management. Patient did not get his x-ray done. INITIAL HPI: Patient states that he has been having these symptoms for many years and over time they have been getting worse. Denies any history of injury or trauma. Patient gives a history of lumbar fusion in 2015. Patient states that the surgery did help with his pain but he still has pain in his lower back. Patient states that pain is worse in the Lower back and he does C/O pain mid back and neck also. Patient rates their symptoms as 8/10 Patient states that the pain is present all the time and describes the pain as Sharp dull aching throbbing and burning in nature.. Other associated symptoms include Numbness and tingling, locking stiffness instability and weakness. Patient states that Pain is worse at night time. Coughing and sneezing does make the symptoms worse. Walking for long distance can make the pain worse and she can walk more than 3 blocks before her pain gets worse. Resting the legs or bending forward has no effect on her symptoms. Patient denies any bowel or bladder incontinence problem. None of the activities including sitting, standing, walking, laying down, raising from chair or physical activity makes any changes in his symptoms. Patient has tried some injections in the past without any improvement. Patients lumbar spine surgery was done by Dr. Patsy Gomez MD [address], [place], [address], [facility] - [facility] 10/30/2019 12:28:31
--- OUTSIDE RECORDS SUMMARY | 2024-07-02 05:38 | XMS_ITS | Continuity of Care Document ---
Author Name [facility] Organization [facility] Care Team Providers [employer] Sc[employer] Coordinator Name Role Phone [facility] Unavailable Unavailable Problems Combined list of problems from Department of Defense and Veterans Affairs facilities. It does not include entries that were removed or entered in error. Problem Status Onset Date Problem Type Date of Resolution Comments Source Abdominal aortic aneurysm Active Condition May 04, 2018 Entered By: ODALYS GAMBLE Comment: 5.8cm pending surgery 04/2018 [facility] Abdominal aortic aneurysm Active Condition Nov 03, 2021 Entered By: CHERRY GRAY Comment: s/p stent placement [place] [facility] Benign essential hypertension (SNOMED CT 6479243) Active Condition [facility] Benign prostatic hyperplasia Active Condition [place] [facility] Bipolar disorder Active Condition [place] [facility] Bipolar disorder (SNOMED CT 13628458) Active Condition [facility] CAD - Coronary Artery Disease ([facility] 01413295) Active Condition [place] [facility] CHF - Congestive Heart Failure ([facility] 19733913) Active Condition Nov 03, 2021 Entered By: CHERRY GRAY Comment: pacemaker/def implantJun 2022 Entered By: CHERRY GRAY Comment: EF 45% with markedly dilated LV on echocardiogram 09/2022 [place] [facility] Chronic hypoxemic respiratory failure Active Condition [place] [facility] Chronic low back pain Active Condition [place] [facility] Chronic low back pain (SNOMED CT 386271691) [facility] Chronic obstructive lung disease Active Condition [place] [facility] Colonic Polyps (ICD-9-CM 211.3) Active Condition Aug 17 3 Entered By: EFRAIN ALVARADO Comment: c-scope done 07/2011, repeat due in 5 years. [facility] Exposure to potentially hazardous substance Active Condition [facility] Gastritis Active Condition [place] [facility] Gastrointestinal stromal tumor Active Condition [place] [facility] GERD - Gastro-esophageal reflux disease Active Condition [facility] H/O: attempted suicide Active Condition [facility] Hematuria * (ICD-9-CM 599.7) Active Condition [facility] HLD - Hyperlipidemia (SNOMED CT 24378419) Active Condition [facility] Hypercalcemia * (ICD-9-CM 275.42) Active Condition [facility] Hyperlipidemia (SCT 53671518) Active Condition [place] [facility] Hyperparathyroidism Active Condition [place] [facility] Neck pain Active Condition [facility] Obesity * (ICD-9-CM 278.00) Active Condition [facility] Osteopenia * (ICD-9-CM 733.90) Active Condition [facility] Osteoporosis Active Condition [place] [facility] Osteoporosis (SNOMED CT 16211896) Active Condition [facility] Primary HYPERPARATHYROIDISM (ICD-9-CM 252.01) Active Condition [facility] Suicidal behavior Active Condition [facility] Tobacco use (SNOMED CT 084210995) Active Condition [facility] Umbilical hernia Active Condition [place] [facility] Umbilical hernia * (ICD-9-CM 553.1) Active Condition [facility] Major Depressive Disorder, Single Episode (ICD-9-CM 296.20) Inactive Condition 02/28/2011 [facility] Diagnosis: ICD-10-CM J44.9 Chronic obstructive pulmonary disease, unspecified Active Diagnosis [facility] Diagnosis: ICD-10-CM F31.76 Bipolar disorder, in full remis, most recent episode depress Active Diagnosis [facility] Diagnosis: ICD-10-CM F31.9 Bipolar disorder, unspecified Active Diagnosis [place] [facility] Diagnosis: ICD-10-CM H25.13 Age-related nuclear cataract, bilateral Active Diagnosis [place] [facility] Diagnosis: ICD-10-CM J44.89 Other specified chronic obstructive pulmonary disease Active Diagnosis [place] [facility] Diagnosis: ICD-10-CM J18.8 Other pneumonia, unspecified organism Active Diagnosis [facility] Diagnosis: ICD-10-CM I50.9 Heart failure, unspecified Active Diagnosis [facility] Diagnosis: ICD-10-CM I50.30 Unspecified diastolic (congestive) heart failure Active Diagnosis [place] [facility] Diagnosis: ICD-10-CM R93.89 Abnormal findings on dx imaging of oth body structures Active Diagnosis [facility] Diagnosis: ICD-10-CM R06.00 Dyspnea, unspecified Active Diagnosis [facility] Diagnosis: ICD-10-CM T16.1XXA Foreign body in right ear, initial encounter Active Diagnosis [facility] Diagnosis: ICD-10-CM Z46.1 Encounter for fitting and adjustment of hearing aid Active Diagnosis [facility] Medications Combined list of outpatient medications from Department of Defense and Veterans Affairs facilities.Medications provided include 1) outpatient medications from the last 15 months, and 2) patient-reported medications. Medication Details Route Status Patient Instructions Prescription Expires Prescription Number Last Dispense Date Ordering Provider Order Date Order Qty Source ALBUTEROL SO4 3MG/IPRATRO PIUM BR 0.5MG/3ML INHL,3ML INHALE 1 VIAL (3ML) BY NEBULIZA TION EVERY 4 HOURS NEEDED FOR COPD NEBULI ZATION DISCONT INUED 05/24/2024 [id number] 3 [facility] 2022 540 [facility] ALBUTEROL SO4 90MCG/ACTUA T (CFC-F) INHL,ORAL,8 .5GM INHALE 2 PUFFS ORAL INHALATI ON EVERY 4 HOURS NEEDED FOR COPD SHAKE WELL. RINSE MOUTHPIE CE FREQUENT LY TO PREVENT CLOGGING . RESPIR ATORY (INHAL ATION) ACTIVE 09/18/2024 [id number] 4 [facility] 2023 3 [facility] ALBUTEROL SO4 90MCG/ACTUA T (CFC-F) INHL,ORAL,8 .5GM INHALE 2 PUFFS ORAL INHALATI ON EVERY 4 HOURS NEEDED FOR COPD SHAKE WELL. RINSE MOUTHPIE CE FREQUENT LY TO PREVENT CLOGGING . RESPIR ATORY (INHAL ATION) DISCONT INUED 06/23/2024 [id number] 4 [facility] 2023 3 [facility] ATORVASTATI N CA 80MG TAB TAKE ONE TABLET BY MOUTH EVERY EVENING FOR HIGH CHOLESTE ROL ORAL 05/24/2024 [id number] 4 CHERRY GRAY 2022 90 [facility] CARVEDILOL 25MG TAB TAKE ONE-HALF TABLET BY MOUTH TWICE A DAY FOR HIGH BLOOD PRESSURE TAKE WITH FOOD. ORAL 05/24/2024 [id number] 4 CHERRY GRAY 2022 90 [facility] CHOLECALCIF JOHNNY 50MCG (2,000UNIT) TAB TAKE TWO TABLETS BY MOUTH ONCE A DAY FOR VITAMIN D DEFICIEN CY ORAL 05/26/2024 [id number] 4 CHERRY GRAY 2022 200 [facility] CYANOCOBALA MIN 1000MCG TAB TAKE ONE TABLET BY MOUTH ONCE A DAY FOR VITAMIN B12 SUPPLEME NTATION ORAL 05/26/2024 [id number] 4 CHERRY GRAY 2022 100 [facility] DOXAZOSIN MESYLATE 8MG TAB TAKE ONE-HALF TABLET BY MOUTH AT BEDTIME FOR BENIGN PROSTATI C HYPERPLA JAILYN ORAL 05/24/2024 [id number] 3 CHERRY GRAY 2022 45 [facility] FUROSEMIDE 20MG TAB TAKE ONE TABLET BY MOUTH EVERY MORNING ORAL DISCONT INUED BY PROVIDE R 05/24/2024 [id number] 4 CHERRY GRAY [address] [place] [address] [facility] FUROSEMIDE 40MG TAB TAKE ONE TABLET BY MOUTH EVERY DAY FOR FLUID RETENTIO N (EDEMA) MAY TAKE 2 TABLETS IF INCREASE D EDEMA OR GREATER THAN 2 POUND WEIGHT GAIN ORAL ACTIVE 06/04/2025 [id number] 5 CHERRY GRAY 2024 90 [facility] GABAPENTIN 300MG CAP TAKE THREE CAPSULES BY MOUTH AT BEDTIME FOR NERVE PAIN ORAL 05/25/2024 [id number] 4 CHERRY GRAY 2022 270 [facility] GUAIFENESIN /EPHEDRINE TAB TAKE 10MG BY MOUTH AT BEDTIME NEEDED ORAL ACTIVE CHERRY GRAY 2021 [facility] LAMOTRIGINE 200MG TAB TAKE ONE TABLET BY MOUTH AT BEDTIME FOR BIPOLAR DISORDER ORAL 05/24/2024 [id number] 4 ISAAC CHERRY 2022 90 [facility] LISINOPRIL 20MG TAB TAKE ONE-HALF TABLET BY MOUTH ONCE A DAY FOR HEART FAILURE ORAL DISCONT INUED BY PROVIDE R 05/24/2024 [id number] 3 ISAAC CHERRY 2022 45 [facility] LITHIUM CARBONATE 300MG CAP TAKE ONE CAPSULE BY MOUTH TWICE A DAY FOR BIPOLAR DISORDER ORAL 05/24/2024 [id number] 4 ISAAC, CHERRY 2022 180 [facility] MIRTAZAPINE 30MG TAB TAKE ONE TABLET BY MOUTH AT BEDTIME FOR DEPRESSI ON ORAL ACTIVE 05/11/2025 [id number] 4 RADHA BARNEY 2023 90 [facility] MIRTAZAPINE 30MG TAB TAKE ONE-HALF TABLET BY MOUTH AT BEDTIME FOR DEPRESSI ON ORAL DISCONT INUED (EDIT) 05/24/2024 [id number] 4 ISAAC CHERRY 2022 45 [facility] OLODATEROL 2.5MCG/TIOT ROPIUM 2.5MCG/ACTU AT INHL,ORAL,6 0D,4GM INHALE 2 PUFFS BY ORAL INHALATI ON ONCE A DAY FOR COPD ADMINIST ER AT SAME TIME EACH DAY RESPIR ATORY (INHAL ATION) ACTIVE 12/07/2024 [id number] 4 ISAAC CHERRY 2023 3 [facility] OLODATEROL 2.5MCG/TIOT ROPIUM 2.5MCG/ACTU AT INHL,ORAL,6 0D,4GM INHALE 2 PUFFS BY ORAL INHALATI ON ONCE A DAY FOR COPD ADMINIST ER AT SAME TIME EACH DAY RESPIR ATORY (INHAL ATION) DISCONT INUED 11/11/2023 [id number] 4 ISAAC CHERRY 2022 3 [facility] PANTOPRAZOL E NA 40MG TAB,EC TAKE ONE TABLET BY MOUTH EVERY MORNING BEFORE A MEAL FOR GASTROES OPHAGEAL REFLUX DISEASE TAKE 30 MINUTES BEFORE MEAL(S) ORAL 05/24/2024 [id number] 4 ISAAC, CHERRY 2022 90 [facility] PANTOPRAZOL E NA 40MG TAB,EC TAKE ONE TABLET BY MOUTH EVERY MORNING ORAL ACTIVE ODALYS POND 2017 [facility] QUETIAPINE FUMARATE 100MG TAB TAKE ONE-HALF TABLET BY MOUTH AT BEDTIME NEEDED ORAL ACTIVE ISAAC, CHERRY 2022 [facility] SACUBITRIL 24MG/VALSAR FOX 26MG TAB TAKE 1 TABLET BY MOUTH TWICE A DAY FOR HEART FAILURE ORAL ACTIVE 06/04/2025 [id number] 5 ISAAC, CHERRY 2024 180 [facility] SUCRALFATE 1GM TAB TAKE ONE TABLET BY MOUTH FOUR TIMES A DAY ORAL ACTIVE ODALYS POND 2017 [facility] Allergies, Adverse Reactions, Alerts Combined list of allergies from Department of Defense and Veterans Affairs facilities. It does not include entries that were removed or entered in error. Substance Category Reaction Severity Reaction type Status Date Reported Comments Source ALENDRONATE Propensity to adverse reactions to drug (finding) Abdominal pain active 1 [facility] Immunizations Combined list of available immunizations from the Department of Defense and Veterans Affairs facilities. Immunization Series Date Given Administered By Site Reaction Lot Number CVX Code Drug [place] Reo Status Comments Source INFLUENZA, HIGH-DOSE, TRIVALENT, PF 2024 MARCIA GIL LEFT DELTO ID [id number] 135 complet ed [facility] INFLUENZA, INJECTABLE, QUADRIVALENT, PRESERVATIVE FREE 2022 BRITTANEY AWAN R RIGHT DELTO ID [id number] A 150 complet ed [facility] PNEUMOCOCCAL CONJUGATE PCV20, POLYSACCHARID E [id number] CONJUGATE, ADJUVANT, PF 2022 BRITTANEY AWAN R LEFT DELTO ID [id number] 216 complet ed [facility] TDAP 2021 115 complet ed [place] [facility] ZOSTER RECOMBINANT 1 2021 187 complet ed [facility] COVID-19 (PFIZER), MRNA, LNP-S, PF, 30 MCG/0.3 ML DOSE 2 2020 208 complet ed PFR; [id number]; 1 [facility] COVID-19 (PFIZER), MRNA, LNP-S, PF, 30 MCG/0.3 ML DOSE 1 2020 208 complet ed PFR; [id number]; 1 [facility] INFLUENZA, UNSPECIFIED FORMULATION 2015 88 complet ed [facility] PNEUMOCOCCAL POLYSACCHARID E PPV23 2015 33 complet ed y [facility] INFLUENZA, UNSPECIFIED FORMULATION 2011 88 complet ed [facility] INFLUENZA, UNSPECIFIED FORMULATION 2011 NONE 88 complet ed SANOFI PASTEUR/U [id number] NE30,2011 [facility] TD(ADULT) UNSPECIFIED FORMULATION 2010 139 complet ed [facility] INFLUENZA, UNSPECIFIED FORMULATION 2009 88 complet ed [facility] NOVEL INFLUENZA-H1N 1-09, ALL FORMULATIONS 2009 128 complet ed Sanofi Pasteur,e xp. [facility] INFLUENZA, UNSPECIFIED FORMULATION 2008 NONE 88 complet ed Fluvirin/ Novartis, [id number],exp .jn.2008 [facility] TD(ADULT) UNSPECIFIED FORMULATION 2002 139 complet ed [facility] Results Combined list of recent chemistry, hematology and other laboratory results from Department of Defense and Veterans Affairs, ranging from 15 months to all on record, depending upon the facility. Order Name Results Value Reference Range Date Interpretation Specimen Comments Source COMPREHENSI VE METABOLIC PANEL CREATININE [MASS/VOLUME] IN SERUM OR PLASMA 1.13 mg/dL 0.7 - 1.3 06/03 Specimen Type: PLASMA No comment entered. Ordering Provider: CHERRY GRAY Report Released Date/Time : May 24, 2023 02:19 PM Reporting Lab: [place] [facility] [address] [place] [id number] Performin g Lab: [place] [facility] [address] [place] [address] [place] [facility] COMPREHENSI VE METABOLIC PANEL UREA NITROGEN [MASS/VOLUME] IN SERUM OR PLASMA 15 mg/dL 9 - 25 06/03 Specimen Type: PLASMA No comment entered. Ordering Provider: CHERRY GRAY Report Released Date/Time : May 24, 2023 02:19 PM Reporting Lab: [place] [facility] [address] [place] [address] Performin g Lab: [place] [facility] [address] [place] [address] [facility] COMPREHENSI VE METABOLIC PANEL GLUCOSE [MASS/VOLUME] IN SERUM OR PLASMA 158 mg/dL 72 - 99 06/03 H Specimen Type: PLASMA No comment entered. Ordering Provider: CHERRY GRAY Report Released Date/Time : May 24, 2023 02:19 PM Reporting Lab: [place] [facility] [address] [place] [address] Performin g Lab: [place] [facility] [address] [place] [address] [facility] COMPREHENSI VE METABOLIC PANEL SODIUM [MOLES/VOLUME ] IN SERUM OR PLASMA 143 meq/L 136 - 145 06/03 Specimen Type: PLASMA No comment entered. Ordering Provider: CHERRY GRAY Report Released Date/Time : May 24, 2023 02:19 PM Reporting Lab: [place] [facility] [address] [place] [address] Performin g Lab: [place] [facility] [address] [place] [address] [facility] COMPREHENSI VE METABOLIC PANEL POTASSIUM [MOLES/VOLUME ] IN SERUM OR PLASMA 3.9 meq/L 3.5 - 5 06/03 Specimen Type: PLASMA No comment entered. Ordering Provider: CHERRY GRAY Report Released Date/Time : May 24, 2023 02:19 PM Reporting Lab: [place] [facility] [address] [place] [address] Performin g Lab: [place] [facility] [address] [place] [address] [facility] COMPREHENSI VE METABOLIC PANEL CHLORIDE [MOLES/VOLUME ] IN SERUM OR PLASMA 95 meq/L 98 - 107 06/03 L Specimen Type: PLASMA No comment entered. Ordering Provider: CHERRY GRAY Report Released Date/Time : May 24, 2023 02:19 PM Reporting Lab: [place] [facility] [address] [place] [address] Performin g Lab: [place] [facility] [address] [place] [address] [facility] COMPREHENSI VE METABOLIC PANEL CARBON DIOXIDE, TOTAL [MOLES/VOLUME ] IN SERUM OR PLASMA 37 meq/L 22 - 31 06/03 H Specimen Type: PLASMA No comment entered. Ordering Provider: CHERRY GRAY Report Released Date/Time : May 24, 2023 02:19 PM Reporting Lab: [place] [facility] [address] [place] [address] Performin g Lab: [place] [facility] [address] [place] [address] [facility] COMPREHENSI VE METABOLIC PANEL CALCIUM [MASS/VOLUME] IN SERUM OR PLASMA 11.0 mg/dL 8.4 - 10.4 06/03 H Specimen Type: PLASMA No comment entered. Ordering Provider: CHERRY GRAY Report Released Date/Time : May 24, 2023 02:19 PM Reporting Lab: [place] [facility] [address] [place] [address] Performin g Lab: [place] [facility] [address] [place] [address] 8 [facility] COMPREHENSI VE METABOLIC PANEL PROTEIN [MASS/VOLUME] IN SERUM OR PLASMA 6.9 g/dL 6 - 8.6 06/03 Specimen Type: PLASMA No comment entered. Ordering Provider: CHERRY GRAY Report Released Date/Time : May 24, 2023 02:19 PM Reporting Lab: [place] [facility] [address] [place] [address] Performin g Lab: [place] [facility] [address] [place] [address] [facility] COMPREHENSI VE METABOLIC PANEL ALBUMIN [MASS/VOLUME] IN SERUM OR PLASMA 4.1 g/dL 3.4 - 5 06/03 Specimen Type: PLASMA No comment entered. Ordering Provider: CHERRY GRAY Report Released Date/Time : May 24, 2023 02:19 PM Reporting Lab: [place] [facility] [address] [place] [address] Performin g Lab: [place] [facility] [address] [place] [address] [facility] COMPREHENSI VE METABOLIC PANEL BILIRUBIN.TOT AL [MASS/VOLUME] IN SERUM OR PLASMA 0.5 mg/dL 0.2 - 1.2 06/03 Specimen Type: PLASMA No comment entered. Ordering Provider: CHERRY GRAY Report Released Date/Time : May 24, 2023 02:19 PM Reporting Lab: [place] [facility] [address] [place] [address] Performin g Lab: [place] [facility] [address] [place] [address] [facility] COMPREHENSI VE METABOLIC PANEL ALKALINE PHOSPHATASE [ENZYMATIC ACTIVITY/VOLU ME] IN SERUM OR PLASMA 81 U/L 40 - 150 06/03 Specimen Type: PLASMA No comment entered. Ordering Provider: CHERRY GRAY Report Released Date/Time : May 24, 2023 02:19 PM Reporting Lab: [place] [facility] [address] [place] [address] Performin g Lab: [place] [facility] [address] [place] [address] [facility] COMPREHENSI VE METABOLIC PANEL ASPARTATE AMINOTRANSFER ASE [ENZYMATIC ACTIVITY/VOLU ME] IN SERUM OR PLASMA 16 U/L 5 - 34 06/03 Specimen Type: PLASMA No comment entered. Ordering Provider: CHERRY GRAY Report Released Date/Time : May 24, 2023 02:19 PM Reporting Lab: [place] [facility] [address] [place] [address] Performin g Lab: [place] [facility] [address] [place] [address] [facility] COMPREHENSI VE METABOLIC PANEL ALANINE AMINOTRANSFER ASE [ENZYMATIC ACTIVITY/VOLU ME] IN SERUM OR PLASMA 13 U/L 8 - 40 06/03 Specimen Type: PLASMA No comment entered. Ordering Provider: CHERRY GRAY Report Released Date/Time : May 24, 2023 02:19 PM Reporting Lab: [place] [facility] [address] [place] [address] 8 Performin g Lab: [place] [facility] [address] [place] [address] [facility] COMPREHENSI VE METABOLIC PANEL GLOMERULAR FILTRATION RATE/1.73 SQ M.PREDICTED [VOLUME RATE/AREA] IN SERUM, PLASMA OR BLOOD BY CREATININE-BA SED FORMULA (CKD-EPI 2020) 70 06/03 Specimen Type: PLASMA No comment entered. Ordering Provider: CHERRY GRAY Report Released Date/Time : May 24, 2023 02:19 PM Reporting Lab: [place] [facility] [address] [place] [address] Performin g Lab: [place] [facility] [address] [place] [address] [facility] HGA1C HEMOGLOBIN A1C/HEMOGLOBI N.TOTAL IN BLOOD 5.9 4.0 - 6.0 06/03 Specimen Type: BLOOD No comment entered. Ordering Provider: CHERRY GRAY Report Released Date/Time : May 24, 2023 02:19 PM Reporting Lab: [place] [facility] [address] [place] [address] Performin g Lab: [place] [facility] [address] [place] [address] [facility] CHOLESTEROL PANEL (PB) CHOLESTEROL [MASS/VOLUME] IN SERUM OR PLASMA 205 mg/dL 0 - 200 06/03 H Specimen Type: PLASMA No comment entered. Ordering Provider: CHERRY GRAY Report Released Date/Time : May 24, 2023 02:19 PM Reporting Lab: [place] [facility] [address] [place] [address] Performin g Lab: [place] [facility] [address] [place] [address] [facility] CHOLESTEROL PANEL (PB) TRIGLYCERIDE [MASS/VOLUME] IN SERUM OR PLASMA 235 mg/dL 0 - 150 06/03 H Specimen Type: PLASMA No comment entered. Ordering Provider: CHERRY GRAY Report Released Date/Time : May 24, 2023 02:19 PM Reporting Lab: [place] [facility] [address] [place] [address] 8 Performin g Lab: [place] [facility] [address] [place] [address] [facility] CHOLESTEROL PANEL (PB) CHOLESTEROL IN LDL [MASS/VOLUME] IN SERUM OR PLASMA BY CALCULATION 104.8 mg/dL 06/03 Specimen Type: PLASMA No comment entered. Ordering Provider: CHERRY GRAY Report Released Date/Time : May 24, 2023 02:19 PM Reporting Lab: [place] [facility] [address] [place] [address] Performin g Lab: [place] [facility] [address] [place] [address] [facility] CHOLESTEROL PANEL (PB) CHOLESTEROL IN HDL [MASS/VOLUME] IN SERUM OR PLASMA 53.2 mg/dL 40 06/03 H Specimen Type: PLASMA No comment entered. Ordering Provider: CHERRY GRAY Report Released Date/Time : May 24, 2023 02:19 PM Reporting Lab: [place] [facility] [address] [place] [address] Performin g Lab: [place] [facility] [address] [place] [address] 8 [facility] CHOLESTEROL PANEL (PB) CHOLESTEROL IN HDL/CHOLESTER OL.TOTAL [MASS RATIO] IN SERUM OR PLASMA 26.0 25 06/03 Specimen Type: PLASMA No comment entered. Ordering Provider: CHERRY GRAY Report Released Date/Time : May 24, 2023 02:19 PM Reporting Lab: [place] [facility] [address] [place] [address] Performin g Lab: [place] [facility] [address] [place] [address] [facility] TSH (MA-PB) THYROTROPIN [UNITS/VOLUME ] IN SERUM OR PLASMA 1.672 u[IU]/ mL 0.47 - 5 06/03 Specimen Type: SERUM No comment entered. Ordering Provider: CHERRY GRAY Report Released Date/Time : May 24, 2023 02:19 PM Reporting Lab: [place] [facility] [address] [place] [address] Performin g Lab: [place] [facility] [address] [place] [address] [facility] PROST. SPECIFIC AG.(PB-STL) PROSTATE SPECIFIC AG [MASS/VOLUME] IN SERUM OR PLASMA 2.55 ng/mL 0 - 4 06/03 Specimen Type: SERUM No comment entered. Ordering Provider: CHERRY GRAY Report Released Date/Time : May 24, 2023 02:19 PM Reporting Lab: [place] [facility] [address] [place] [id number] Performin g Lab: [place] [facility] [address] [place] [id number] [facility] CBC LEUKOCYTES [#/VOLUME] IN BLOOD BY AUTOMATED COUNT 6.9 10*3/u L 3.6 - 11.2 06/03 Specimen Type: BLOOD No comment entered. Ordering Provider: CHERRY GRAY Report Released Date/Time : May 24, 2023 02:19 PM Reporting Lab: [place] [facility] [address] [place] [id number] Performin g Lab: [place] [facility] [address] [place] [id number] [facility] CBC ERYTHROCYTES [#/VOLUME] IN BLOOD BY AUTOMATED COUNT 4.03 10*6/u L 4.10 - 5.70 06/03 L Specimen Type: BLOOD No comment entered. Ordering Provider: CHERRY GRAY Report Released Date/Time : May 24, 2023 02:19 PM Reporting Lab: [place] [facility] [address] [place] [address] Performin g Lab: [place] [facility] [address] [place] [address] [facility] CBC HEMOGLOBIN [MASS/VOLUME] IN BLOOD 12.7 g/dL 13.1 - 16.8 06/03 L Specimen Type: BLOOD No comment entered. Ordering Provider: CHERRY GRAY Report Released Date/Time : May 24, 2023 02:19 PM Reporting Lab: [place] [facility] [address] [place] [address] 8 Performin g Lab: [place] [facility] [address] [place] [address] 8 [facility] CBC HEMATOCRIT [VOLUME FRACTION] OF BLOOD 41.6 38.2 - 48.4 06/03 Specimen Type: BLOOD No comment entered. Ordering Provider: CHERRY GRAY Report Released Date/Time : May 24, 2023 02:19 PM Reporting Lab: [place] [facility] [address] [place] [address] 8 Performin g Lab: [place] [facility] [address] [place] [id number] 8 [facility] CBC MCV [ENTITIC VOLUME] BY AUTOMATED COUNT 103.2 fL 80.0 - 100.0 06/03 H Specimen Type: BLOOD No comment entered. Ordering Provider: CHERRY GRAY Report Released Date/Time : May 24, 2023 02:19 PM Reporting Lab: [place] [facility] [address] [place] [address] Performin g Lab: [place] [facility] [address] [place] [address] 8 [facility] CBC MCH [ENTITIC MASS] BY AUTOMATED COUNT 31.5 pg 27.0 - 34.0 06/03 Specimen Type: BLOOD No comment entered. Ordering Provider: CHERRY GRAY Report Released Date/Time : May 24, 2023 02:19 PM Reporting Lab: [place] [facility] [address] [place] [address] Performin g Lab: [place] [facility] [address] [place] [address] 8 [facility] CBC MCHC [MASS/VOLUME] BY AUTOMATED COUNT 30.5 g/dL 33.0 - 36.0 06/03 L Specimen Type: BLOOD No comment entered. Ordering Provider: CHERRY GRAY Report Released Date/Time : May 24, 2023 02:19 PM Reporting Lab: [place] [facility] [address] [place] [address] 8 Performin g Lab: [place] [facility] [address] [place] [address] 8 [facility] CBC PLATELETS [#/VOLUME] IN BLOOD BY AUTOMATED COUNT 193 10*3/u L 150 - 400 06/03 Specimen Type: BLOOD No comment entered. Ordering Provider: CHERRY GRAY Report Released Date/Time : May 24, 2023 02:19 PM Reporting Lab: [place] [facility] [address] [place] [address] 8 Performin g Lab: [place] [facility] [address] [place] [address] 8 [facility] CBC PLATELET MEAN VOLUME [ENTITIC VOLUME] IN BLOOD BY AUTOMATED COUNT 11.2 fL 7.5 - 11.2 06/03 Specimen Type: BLOOD No comment entered. Ordering Provider: CHERRY GRAY Report Released Date/Time : May 24, 2023 02:19 PM Reporting Lab: [place] [facility] [address] [place] [address] 8 Performin g Lab: [place] [facility] [address] [place] [address] 8 [facility] CBC ERYTHROCYTE DISTRIBUTION WIDTH [RATIO] BY AUTOMATED COUNT 13.1 11.8 - 15.1 06/03 Specimen Type: BLOOD No comment entered. Ordering Provider: CHERRY GRAY Report Released Date/Time : May 24, 2023 02:19 PM Reporting Lab: [place] [facility] [address] [place] [address] 8 Performin g Lab: [place] [facility] [address] [place] [address] 8 [facility] CBC LYMPHOCYTES/1 00 LEUKOCYTES IN BLOOD BY AUTOMATED COUNT 18.3 06/03 Specimen Type: BLOOD No comment entered. Ordering Provider: CHERRY GRAY Report Released Date/Time : May 24, 2023 02:19 PM Reporting Lab: [place] [facility] [address] [place] [address] 8 Performin g Lab: [place] [facility] [address] [place] [address] 8 [facility] CBC MONOCYTES/100 LEUKOCYTES IN BLOOD BY AUTOMATED COUNT 6.3 06/03 Specimen Type: BLOOD No comment entered. Ordering Provider: CHERRY GRAY Report Released Date/Time : May 24, 2023 02:19 PM Reporting Lab: [place] [facility] [address] [place] [address] 8 Performin g Lab: [place] [facility] [address] [place] [address] 8 [facility] CBC NEUTROPHILS/1 00 LEUKOCYTES IN BLOOD BY AUTOMATED COUNT 74.3 06/03 Specimen Type: BLOOD No comment entered. Ordering Provider: CHERRY GRAY Report Released Date/Time : May 24, 2023 02:19 PM Reporting Lab: [place] [facility] [address] [place] [address] 8 Performin g Lab: [place] [facility] [address] [place] [address] 8 [facility] CBC EOSINOPHILS/1 00 LEUKOCYTES IN BLOOD BY AUTOMATED COUNT 0.4 06/03 Specimen Type: BLOOD No comment entered. Ordering Provider: CHERRY GRAY Report Released Date/Time : May 24, 2023 02:19 PM Reporting Lab: [place] [facility] [address] [place] [address] 8 Performin g Lab: [place] [facility] [address] [place] [address] 8 [facility] CBC BASOPHILS/100 LEUKOCYTES IN BLOOD BY AUTOMATED COUNT 0.4 06/03 Specimen Type: BLOOD No comment entered. Ordering Provider: CHERRY GRAY Report Released Date/Time : May 24, 2023 02:19 PM Reporting Lab: [place] [facility] [address] [place] [address] 8 Performin g Lab: [place] [facility] [address] [place] [address] 8 [facility] CBC LYMPHOCYTES [#/VOLUME] IN BLOOD BY AUTOMATED COUNT 1.27 10*3/u L 0.77 - 4.50 06/03 Specimen Type: BLOOD No comment entered. Ordering Provider: CHERRY GRAY Report Released Date/Time : May 24, 2023 02:19 PM Reporting Lab: [place] [facility] [address] [place] [address] 8 Performin g Lab: [place] [facility] [address] [place] [address] 8 [facility] CBC MONOCYTES [#/VOLUME] IN BLOOD BY AUTOMATED COUNT 0.44 10*3/u L 0.19 - 0.8 06/03 Specimen Type: BLOOD No comment entered. Ordering Provider: CHERRY GRAY Report Released Date/Time : May 24, 2023 02:19 PM Reporting Lab: [place] [facility] [address] [place] [address] 8 Performin g Lab: [place] [facility] [address] [place] [address] 8 [facility] CBC NEUTROPHILS [#/VOLUME] IN BLOOD BY AUTOMATED COUNT 5.14 10*3/u L 2.10 - 8.00 06/03 Specimen Type: BLOOD No comment entered. Ordering Provider: CHERRY GRAY Report Released Date/Time : May 24, 2023 02:19 PM Reporting Lab: [place] [facility] [address] [place] [address] 8 Performin g Lab: [place] [facility] [address] [place] [address] 8 [facility] CBC EOSINOPHILS [#/VOLUME] IN BLOOD BY AUTOMATED COUNT 0.03 10*3/u L 0.00 - 0.60 06/03 Specimen Type: BLOOD No comment entered. Ordering Provider: CHERRY GRAY Report Released Date/Time : May 24, 2023 02:19 PM Reporting Lab: [place] [facility] [address] [place] [address] 8 Performin g Lab: [place] [facility] [address] [place] [address] 8 [facility] CBC BASOPHILS [#/VOLUME] IN BLOOD BY AUTOMATED COUNT 0.03 10*3/u L 0.00 - 0.20 06/03 Specimen Type: BLOOD No comment entered. Ordering Provider: CHERRY GRAY Report Released Date/Time : May 24, 2023 02:19 PM Reporting Lab: [place] [facility] [address] [place] [address] 8 Performin g Lab: [place] [facility] [address] [place] [address] [facility] CBC IMMATURE GRANULOCYTES/ 100 LEUKOCYTES IN BLOOD BY AUTOMATED COUNT 0.3 06/03 Specimen Type: BLOOD No comment entered. Ordering Provider: CHERRY GRAY Report Released Date/Time : May 24, 2023 02:19 PM Reporting Lab: [place] [facility] [address] [place] [address] Performin g Lab: [place] [facility] [address] [place] [address] 8 [facility] CBC IMMATURE GRANULOCYTES [#/VOLUME] IN BLOOD BY AUTOMATED COUNT 0.02 10*3/u L 0.00 - 0.05 06/03 Specimen Type: BLOOD No comment entered. Ordering Provider: CHERRY GRAY Report Released Date/Time : May 24, 2023 02:19 PM Reporting Lab: [place] [facility] [address] [place] [address] 8 Performin g Lab: [place] [facility] [address] [place] [address] 8 [facility] LITHIUM LITHIUM [MOLES/VOLUME ] IN SERUM OR PLASMA 0.90 meq/L 0.6 - 1.2 06/03 Specimen Type: SERUM No comment entered. Ordering Provider: CHERRY GRAY Report Released Date/Time : May 24, 2023 02:19 PM Reporting Lab: [place] [facility] [address] [place] [address] 8 Performin g Lab: [place] [facility] [address] [place] [address] 8 [facility] B12 COBALAMIN (VITAMIN B12) [MASS/VOLUME] IN SERUM OR PLASMA 811 pg/mL 213 - 816 11/07 Specimen Type: SERUM No comment entered. Ordering Provider: CHERRY GRAY Report Released Date/Time : October 19, 2023 12:45 PM Reporting Lab: [place] [facility] [address] [place] [address] 8 Performin g Lab: [place] [facility] [address] [place] [address] [facility] MAGNESIUM MAGNESIUM [MASS/VOLUME] IN SERUM OR PLASMA 1.66 mg/dL 1.6 - 2.6 11/07 Specimen Type: PLASMA No comment entered. Ordering Provider: CHERRY GRAY Report Released Date/Time : October 19, 2023 12:45 PM Reporting Lab: [place] [facility] [address] [place] [address] Performin g Lab: [place] [facility] [address] [place] [address] [facility] VITAMIN D, 25-HYDROXY 25-HYDROXYVIT DIAZ D3 [MASS/VOLUME] IN SERUM OR PLASMA 36.6 ng/mL 30 - 96 11/07 Specimen Type: SERUM No comment entered. Ordering Provider: CHERRY GRAY Report Released Date/Time : October 19, 2023 12:45 PM Reporting Lab: [place] [facility] [address] [place] [address] Performin g Lab: [place] [facility] [address] [place] [address] [facility] Vital Signs Combined list of inpatient and outpatient Vital Signs from Department of Defense and Veterans Affairs, ranging from 12 months to all on record, depending upon the facility. Vital Sign Value Date Comments Source SYSTOLIC BLOOD PRESSURE 113 06/03/2024 11:51:00 [facility] DIASTOLIC BLOOD PRESSURE 72 06/03/2024 11:51:00 [place] [facility] PULSE OXIMETRY 92 06/03/2024 11:51:00 [facility] [place] [facility] WEIGHT 225.0 06/03/2024 11:51:00 [place] [facility] BMI 34kg/m2 06/03/2024 11:51:00 [place] [facility] HEIGHT 68.0 06/03/2024 11:51:00 [place] [facility] TEMPERATURE 97.9 06/03/2024 11:51:00 [place] [facility] PULSE 71 06/03/2024 11:51:00 [place] [facility] RESPIRATION 20 06/03/2024 11:51:00 [place] [facility] SYSTOLIC BLOOD PRESSURE 112 11/08/2023 11:45:00 [facility] DIASTOLIC BLOOD PRESSURE 71 11/08/2023 11:45:00 [facility] PULSE OXIMETRY 91 11/08/2023 11:45:00 [facility] TEMPERATURE 98.8 11/08/2023 11:45:00 [facility] PULSE 84 11/08/2023 11:45:00 [facility] RESPIRATION 20 11/08/2023 11:45:00 [facility] SYSTOLIC BLOOD PRESSURE 118 08/15/2023 13:22:04 [place] [facility] DIASTOLIC BLOOD PRESSURE 80 08/15/2023 13:22:04 [place] [facility] PULSE OXIMETRY 96 08/15/2023 13:22:04 [facility] [place] [facility] WEIGHT 197.3 08/15/2023 13:22:04 [place] [facility] BMI 30kg/m2 08/15/2023 13:22:04 [place] [facility] PAIN 8 08/15/2023 13:22:04 [place] [facility] HEIGHT 68 08/15/2023 13:22:04 [place] [facility] TEMPERATURE 98.1 08/15/2023 13:22:04 [place] [facility] PULSE 74 08/15/2023 13:22:04 [place] [facility] RESPIRATION 18 08/15/2023 13:22:04 [place] [facility] Encounters Combined list of: 1) Encounters from Department of Veterans Affairs facilities going back up to thelast 18 months. 2) Encounters from the Department of Defense facilities going back up to 280 months. Location Location Details Encounter Type Encounter Number Reason For Visit Attending Provider ADM Date DC Date Status Disposition Source [facility] Outpatient Encounter [id number] 01/02 [facility] Outpatient Encounter [id number] 01/07 [facility] CONFORMITY EVALUATION [id number] Diagnos is: ICD-10- CM Z46.1 Encount er for fitting and adjustm ent of hearing aid<br/ > DARYA ELISE 01/09 [facility] FAC[facility] FEE [id number] Diagnos is: ICD-10- CM Z46.1 Encount er for fitting and adjustm ent of hearing aid<br/ > ARIS OMER 01/09 [facility] CLEAR OUTER EAR CANAL [id number] Diagnos is: ICD-10- CM T16.1XX A Foreign body in right ear, initial encount er
Arleen GRAY 01/09 [facility] Outpatient Encounter [id number] 01/11 [facility] Outpatient Encounter [id number] 01[facility]12 [facility] X REQ PHY/QHP [id number] Diagnos is: ICD-10- CM R06.00 Dyspnea , unspeci fied
BRADEN AWAN 01/16 [facility] HC PRO PHONE CALL 5-10 MIN [id number] Diagnos is: ICD-10- CM R93.89 Abnorma l finding s on dx imaging of oth body structu res<br/ > BRADEN AWAN 01/19 [facility] Outpatient Encounter [id number] 01/23 [facility] Outpatient Encounter [id number] 02/03 [facility] Outpatient Encounter [id number] 03/01 [facility] Outpatient Encounter [id number] 03/[address] [facility] PT EVAL LOW COMPLEX 20 MIN [id number] Diagnos is: ICD-10- CM I50.30 Unspeci fied diastol ic (conges tive) heart failure
ENRRIQUE ERICKSON IE L 03/23 [facility] Outpatient Encounter [id number] 03/23 [facility] Outpatient Encounter [id number] 05/02 [facility] Outpatient Encounter [id number] 05/15 [facility] Outpatient Encounter [id number] 05/15 [facility] Outpatient Encounter [id number] 05/17 [facility] [place] [facility] Outpatient Encounter [id number] 05/18 [place] [facility] Outpatient Encounter [id number] 05/24 [facility] OFFICE O/P EST MOD 30-39 MIN [id number] Diagnos is: ICD-10- CM I50.9 Heart failure , unspeci fied
Arleen GRAY 05/24 [facility] Outpatient Encounter [id number] 05/26 [facility] Outpatient Encounter [id number] 06/02 [facility] [place] [facility] Outpatient Encounter [id number] 06/22 [place] [facility] [place] [facility] Outpatient Encounter [id number] 06/28 [place] [facility] Outpatient Encounter [id number] 06/28 [facility] Outpatient Encounter [id number] 06/30 [facility] [place] [facility] Outpatient Encounter [id number] 07/26 [place] [facility] Outpatient Encounter [id number] 07/27 [facility] [place] [facility] Outpatient Encounter [id number] 08/01 [place] [facility] [place] [facility] Outpatient Encounter [id number] 08/13 [place] [facility] [place] [facility] Outpatient Encounter [id number] NEEL,ANNALISA AMELIA A 08/13 [place] [facility] OFFICE O/P EST MOD 30 MIN [id number] Diagnos is: ICD-10- CM J18.8 Other pneumon ia, unspeci fied organis m
Arleen GRAY 08/14 [facility] Outpatient Encounter [id number] 08/24 [facility] [place] [facility] Outpatient Encounter [id number] 09/12 [place] [facility] [place] [facility] Outpatient Encounter [id number] 10/16 [place] [facility] Outpatient Encounter [id number] 10/25 [facility] Outpatient Encounter [id number] IBIS MCKEON 11/07 [facility] OFF/OP EST MAY X REQ PHY/QHP [id number] Diagnos is: ICD-10- CM J44.89 Other specifi ed chronic obstruc tive pulmona ry disease
BRADEN AWAN 11/07 [facility] Outpatient Encounter [id number] 11/23 [facility] [place] [facility] Outpatient Encounter [id number] 11/26 [place] [facility] [place] [facility] MEASURE BLOOD OXYGEN LEVEL [id number] Diagnos is: ICD-10- CM J44.89 Other specifi ed chronic obstruc tive pulmona ry disease
POYNOR,LISA HELLE B 12/13 [place] [facility] [place] [facility] SELF-MGMT EDUC & TRAIN 1 [place] [id number] Diagnos is: ICD-10- CM J44.89 Other specifi ed chronic obstruc tive pulmona ry disease
POYNOR,LISA HELLE B 12/13 [place] [facility] Outpatient Encounter [id number] 12/19 [facility] [place] [facility] Outpatient Encounter [id number] 01/10 [place] [facility] Outpatient Encounter [id number] BRADEN AWAN 01/14 [facility] Outpatient Encounter [id number] 01/16 [facility] Outpatient Encounter [id number] 01/16 [facility] Outpatient Encounter [id number] 01/18 [facility] [place] [facility] COMPRE OPH EXAM NEW PT 1/> [id number] Diagnos is: ICD-10- CM H25.13 Age-rel ated nuclear catarac t, bilater al
PAN GARNER LA S 01/21 [facility] Outpatient Encounter [id number] 01/22 [facility] Outpatient Encounter [id number] 01/30 [facility] [id number] Diagnos is: ICD-10- CM F31.9 Bipolar disorde r, unspeci fied
Ifrah MAHAJAN 02/04 [facility] DIAGNOSTIC EVALUATION [id number] Diagnos is: ICD-10- CM F31.9 Bipolar disorde r, unspeci fied
Ifrah MAHAJAN 02/04 [facility] Outpatient Encounter [id number] 02[facility]05 [facility] En[facility] [id number] 02/06 [facility] Out[facility] Encounter [id number] 02/13 [facility] Outpatient Encounter [id number] 02/14 [facility] N [facility] Outpatient Encounter [id number] 02/14 [facility] N [facility] Outpatient Encounter [id number] 02[facility]22 [facility] [place] [facility] Outpatient Encounter [id number] 02/25 [place] [facility] Outpatient Encounter [id number] 02/26 [facility] Outpatient Encounter [id number] 03/13 [facility] OFFICE O/P NEW LOW 30 MIN [id number] Diagnos is: ICD-10- CM F31.76 Bipolar disorde r, in full remis, most recent episode depress
MYKE BARNEY 03/14 [facility] [place] [facility] Outpatient Encounter [id number] 04/29 [place] [facility] Outpatient Encounter [id number] 05/01 [facility] [place] [facility] Outpatient Encounter [id number] 05/01 [place] [facility] Outpatient Encounter [id number] 05/09 [facility] [place] [facility] Outpatient Encounter [id number] 05/14 [place] [facility] Outpatient Encounter [id number] 05/16 [facility] [place] [facility] Outpatient Encounter [id number] 05/16 [place] [facility] [place] [facility] Outpatient Encounter [id number] 05/21 [place] [facility] Outpatient Encounter [id number] MELANIE ANDERSON FERNY Ling 05/23 [facility] [place] [facility] Outpatient Encounter [id number] 05/24 [place] [facility] Outpatient Encounter [id number] 06/03 [facility] OFFICE O/P EST MOD 30 MIN [id number] Diagnos is: ICD-10- CM J44.9 Chronic obstruc tive pulmona ry disease , unspeci fied
Arleen GRAY 06/03 [facility] Outpatient Encounter [id number] 06/05 [facility] Outpatient Encounter [id number] 06/07 [facility] [place] [facility] Outpatient Encounter [id number] 06/10 [place] [facility] [place] [facility] Outpatient Encounter [id number] 06/10 [place] [facility] [place] [facility] Outpatient Encounter [id number] 06/10 [place] [facility] Outpatient Encounter [id number] 06/12 [facility] Outpatient Encounter [id number] 06/12 [facility] [place] [facility] Outpatient Encounter [id number] 06/12 [place] [facility] Outpatient Encounter [id number] 06/14 [facility] [place] [facility] Outpatient Encounter [id number] 06/23 [place] [facility] En[facility] [id number] [place],AP RIL L 06/24 [facility] Out[facility] Encounter [id number] 06/26 [facility] Outpatient Encounter [id number] 06/28 [facility] Social History Combined list of available smoking, tobacco, and other social history from Department of Defense and Veterans Affairs facilities. Social History Type Response Date Comment Source Tobacco smoking status [facility] FORMER USER 03/14/2024 [facility] History of tobacco use [place]-TOBACCO QUIT 5 TO < 15 YRS 03/14/2024 [facility] History of tobacco use [place]-TOBACCO FORMER USER 10/31/2022 [facility] of [facility] 5 [facility]/03/2021 [facility] History of tobacco use [place]-TOBACCO FORMER USER 04/27/2018 [facility] History of tobacco use LIFETIME NON-USER OF TOBACCO 11/08/2016 QUIT SMOKING @ ONE YEAR. [facility] History of tobacco use CURRENT TOBACCO USER 09/09/2015 [facility] History of tobacco use CURRENT TOBACCO USER 12/29/2014 [facility] History of tobacco use CURRENT TOBACCO USER 01/14/2014 [facility] History of tobacco use CURRENT TOBACCO USER 08/17/2012 [facility] History of tobacco use CURRENT NON-SMOKER 05/16/2011 [facility] History of tobacco use CURRENT TOBACCO USER 06/01/2010 [facility] History of tobacco use CURRENT TOBACCO USER 05/12/2009 [facility] History of tobacco use CURRENT TOBACCO USER 06/04/2008 [facility] History of tobacco use TOBACCO QUESTIONNAIRE COMPLETED 07/18/2007 [facility] History of tobacco use CURRENT TOBACCO USER 01/02/2007 Pt states one pack per day. [facility] History of tobacco use SMOKING CESSATION REFUSED 03/16/2004 [facility] History of tobacco use SMOKING CESSATION REFUSED 02/11/2004 [facility] History of tobacco use SMOKING CESSATION REFUSED 01/31/2003 [facility] Plan of Care List of future care activities from Department of [facility] facilities. Additional future care activities may be listed in the Assessment and Plan section. Date/Time Care Activity Care Activity Detail Facili ty 07/03/2024 AMBULATORY - MEDICINE AMBULATORY - [facility]ICI [facility] 07/05/2024 AMBULATORY - MEDICINE AM[facility]ULATORY - MEDICI [facility] 07/05/2024 AMBULATORY - MEDICINE AMBULATORY - MEDICI [facility] 07/05/2024 AMBULATORY - MEDICINE AMBULATORY - MEDICI [facility] 05/28/2024 Consult Order [facility] [id number] [facility] 06/07/2024 Consult Order [facility] AIN [id number] [facility]
[2024-07-02] MEDS: pantoprazole 40 mg SDV IVP (05:50)
[2024-07-02 07:37] LABS: Lactate (Lactic Acid level) 0.8 mmol/L (0.5-2.2)
[2024-07-02 07:47] LABS: NT Pro B Type Natriuretic Pept 1283 pg/mL (0-125)
[2024-07-02 07:58] LABS: Alanine Aminotransferase 9 U/L (0-41); Alkaline Phosphatase 59 U/L (40-130); Anion Gap 12.8 (5-19); Aspartate Amino Transferase 11 U/L (0-40); Blood Urea Nitrogen 19 mg/dL (8-23); C Reactive Protein 9.1 mg/L (0.0-4.9); Calcium 11.9 mg/dL (8.5-10.5); Carbon Dioxide 27 mmol/L (22-29); Chloride 102 mmol/L (98-107); Creatinine Clr Calc Pharmacy 78.1783; Globulin 2.3 g/dL (1.3-4.6); Glomerular Filtration Rate 73.9 mL/min (90-130); Glucose 124 mg/dL (65-115); Magnesium 1.6 mg/dL (1.7-2.3); Osmolality Calculated 290 mOsm/kg (285-295); Phosphorus 1.4 mg/dL (2.5-4.5); Potassium 3.8 mmol/L (3.5-5.1); Sodium 138 mmol/L (136-145); Total Protein 6.3 g/dL (6.6-8.7)
[2024-07-02 08:00] LABS: Glucose Point of Care 140 mg/dL (70-110)
[2024-07-02] MEDS: budesonide 0.5 mg/2 mL Neb INHALATION (08:04)
[2024-07-02] MEDS: VANCOMYCIN ADD-Vantage 1,000 MG in 0.9% NaCl ADD-Vantage 250 ML 250 MG IV (08:18)
[2024-07-02] MEDS: lithium carbonate 300 mg Capsule PO (08:19)
[2024-07-02] MEDS: docusate sodium 100 mg Capsule 200 MG PO (08:19)
[2024-07-02] MEDS: atorvastatin 40 mg Tablet PO (08:19)
[2024-07-02] MEDS: sennosides 8.6 mg Tablet 17.2 MG PO (08:19)
[2024-07-02] MEDS: aspirin 81 mg EC Tablet PO (08:19)
[2024-07-02] MEDS: lamoTRIgine 100 mg Tablet 200 MG PO (08:19)
--- NOTE | 2024-07-02 08:36 | XRR_ITS ---
PROCEDURE INFORMATION: Exam: XR Chest Exam date and time: 07/02/2024 9:09 AM Age: 68 years old Clinical indication: Shortness of breath; Additional info: SOB TECHNIQUE: Imaging protocol: Radiologic exam of the chest. Views: 1 view. COMPARISON: CR (CHEST, ) 06/30/2024 11:43 AM FINDINGS: Tubes, catheters and devices: A cardiac pacer/defibrillator device is again noted entering via a left subclavian approach. A right PICC line remains in place with its tip overlying the proximal superior vena cava. Lungs: There is unchanged left retrocardiac consolidation. Pleural spaces: There is a small left pleural effusion. No pneumothorax. Heart/Mediastinum: There is unchanged cardiomegaly. Bones/joints: Unremarkable. XR/XR chest 1V portable [id number] IMPRESSION: Unchanged small left pleural effusion and left lower lobe consolidation which may reflect pneumonia versus atelectasis
--- NOTE | 2024-07-02 10:53 | P.PN_ITS ---
Subjective 2 Subjective: no new complaints Medications: Reviewed: Yes Vitals/I&O/Wt Last Vital Signs Temp 97.8 F 07/02/24 04:00 Pulse 88 07/02/24 09:00 Resp 16 07/02/24 08:00 BP 141/68 07/02/24 10:00 Pulse Ox 98 07/02/24 10:00 O2 Del Method Nasal Cannula 07/02/24 08:00 O2 Flow Rate 3 07/02/24 08:00 FiO2 30 07/02/24 02:52 07/01/24 07/02/24 07/02/24 22:59 06:59 14:59 Intake Total 722 / 1690.419 250 / 1940.419 120 / 120 Output Total 1350 / 2150 800 / 2950 Balance -628 / -459.581 -550 / -1009.581 120 / 120 Weight last 48 hrs Weight 98.43 kg Weight 99 kg Physical Exam 2 Narrative: No distress , on RA Decreased BS joseph per report S1S2 RRR per report + LE edema Urinary Catheter Management: Cunningham: Cath Placed During This Visit: yes Reason for Continuing Indwelling Catheter: Accurate Measurement of Urinary Output in Critically Ill Patients Urinary Catheter Date of Insertion: 06/29/24 Urinary Catheter Time of Insertion: 13:59 Data 07/02/24 04:06 07/02/24 07:05 A&P Assessment and plan (1) Acute renal failure: 1. Acute kidney injury: In the setting of possibly cardiogenic shock, hypotension patient currently on dopamine and Levophed. Baseline creatinine was 1.1 in April 2024., cR peaked @ 3.1, improved to 1.0 today UOP picked up Monitor 2. Shock, likely cardiogenic, on Levophed and dopamine currently 3. Coronary previous disease with NSTEMI, on heparin drip 4. Acute on chronic respiratory failure patient evaluated using audiovisual cart. Time spent 40 minutes. PDMP PDMP Reviewed: Not Reviewed Attestations 2 Medical Necessity Statement*: per palma Coding Level of Care Code Acute Code for Chg Fwd Diagnoses Acute renal failure N17.9
--- NOTE | 2024-07-02 11:00 | P.PN_ITS ---
<Statement entered by Remington Pringle MD - 07/02/24 21:58> Patient was evaluated and cared for in conjunction with an advanced practice practitioner. I personally examined the patient and reviewed the chart and all pertinent data including imaging, telemetry, and laboratory results. I discussed the patient in detail with the advanced practice practitioner. Please see their note for complete H&P testing result and agreed upon plan of care for the patient. Patient feeling well and sitting on the chair heart rate is under GENERAL: Patient is alert, awake and oriented x3. HEART: Regular S1 and S2. No murmur, rub or gallop. LUNGS: Decreased breath bilaterally. CENTRAL NERVOUS SYSTEM: Grossly nonfocal. EXTREMITIES: Lower extremities with out edema bilaterally. Assessment and plan Acute decompensated systolic heart failure Cardiogenic shock Elevated troponin Atrial fibrillation Patient appeared to be near euvolemia Will switch to p.o. Lasix Will add Entresto May can move out of the room Subjective 2 Subjective: Patient is doing well today. He has been weaned off of his dopamine drip. Currently off all pressors. Blood pressures in the 140s currently. Rate is controlled. Overall appears euvolemic. No signs of fluid overload. Creatinine stable at 1. Vitals/I&O/Wt Last Vital Signs Temp 97.8 F 07/02/24 04:00 Pulse 88 07/02/24 09:00 Resp 16 07/02/24 08:00 BP 141/68 07/02/24 10:00 Pulse Ox 98 07/02/24 10:00 O2 Del Method Nasal Cannula 07/02/24 08:00 O2 Flow Rate 3 07/02/24 08:00 FiO2 30 07/02/24 02:52 07/01/24 07/02/24 07/02/24 22:59 06:59 14:59 Intake Total 722 / 1690.419 250 / 1940.419 120 / 120 Output Total 1350 / 2150 800 / 2950 Balance -628 / -459.581 -550 / -1009.581 120 / 120 Weight last 48 hrs Weight 217 lb Weight 218 lb 4.122 oz Physical Exam 2 Narrative: General: No apparent distress, healthy appearing, well nourished HENMT: normoceophalic Neck: No carotid bruit bilaterally Muskuloskeletal: Full ROM Lymphatic: no lymphedema noted Respiratory: Normal respiratory effort, clear to auscultation bilaterally throughout all lung aguayo, no use of accessory muscles Cardio: No JVD, regular rate, regular rhythm, S1 S2 normal, no murmurs, peripheral pulses 2+ radial palpated bilaterally GI: Normal to inspection, nondistended Extremities: Full ROM, normal, normal capillary refill, no cyanosis or edema Neuro: Alert and oriented x4, no focal motor deficits Psych: Affect normal, denies suicidal ideation, mental status grossly normal Skin: No rashes or lesions noted, no wounds Urinary Catheter Management: Cunningham: Cath Placed During This Visit: yes Reason for Continuing Indwelling Catheter: Accurate Measurement of Urinary Output in Critically Ill Patients Urinary Catheter Date of Insertion: 06/29/24 Urinary Catheter Time of Insertion: 13:59 Data 07/02/24 04:06 07/02/24 07:05 A&P Assessment and plan (1) Shock: (2) Elevated troponin: (3) Hyperlipidemia, unspecified: (4) Cardiac resynchronization therapy defibrillator (ROSS FURNACE OPERATOR-D) in place: Plan The plan for this gentleman is to start Entresto and see how his blood pressure tolerates. Patient has been off of Levophed and dopamine. Creatinine has improved to 1. Continue aspirin 81 mg. Continue atorvastatin 40 mg. In the future will add goal-directed medical therapy as blood pressure and creatinine allows. Possibly home tomorrow. May be transferred to stepdown from cardiology standpoint. PDMP PDMP Reviewed: Not Reviewed Attestations 2 Medical Necessity Statement*: deferred to primary Coding Level of Care Code Acute Code for Chg Fwd Diagnoses Shock R57.9 Elevated troponin R79.89 Hyperlipidemia, unspecified E78.5 Cardiac resynchronization therapy defibrillator (ROSS FURNACE OPERATOR-D) in place Z95.810
[2024-07-02 11:22] LABS: Glucose Point of Care 217 mg/dL (70-110)
[2024-07-02] MEDS: heparin 5,000 unit/mL INJ 1 mL 5000 UNIT SUBCUT ×2 (11:24→21:08)
[2024-07-02] MEDS: insulin lispro 100 unit/1 mL SUBCUT (11:25)
[2024-07-02 17:00] LABS: Glucose Point of Care 135 mg/dL (70-110)
[2024-07-02] MEDS: sacubitril/valsartan 24-26 mg Tablet 1 EACH PO (17:15)
--- NOTE | 2024-07-02 18:16 | P.PN_ITS ---
Subjective 2 Subjective: Patient was seen this morning he remains off dopamine, Levophed, sitting up to the side of the bed, was able to sit in a chair, denies any chest pain, no palpitation, no lightheadedness, no dizziness Vitals/I&O/Wt Last Vital Signs Temp 98.5 F 07/02/24 18:00 Pulse 76 07/02/24 18:00 Resp 22 H 07/02/24 14:16 BP 163/94 07/02/24 18:00 Pulse Ox 95 07/02/24 18:00 O2 Del Method Nasal Cannula 07/02/24 14:16 O2 Flow Rate 3 07/02/24 14:16 FiO2 30 07/02/24 02:52 07/02/24 07/02/24 07/02/24 06:59 14:59 22:59 Intake Total 250 / 1940.419 170 / 170 Output Total 800 / 2950 900 / 900 Balance -550 / -1009.581 170 / 170 -900 / -730 Weight last 48 hrs Weight 98.43 kg Weight 99 kg Physical Exam 2 Const: COMMON NORMALS: no acute distress and patient oriented x3 Resp: COMMON NORMALS: normal respiratory effort, No retractions, No use of accessory muscles and clear to auscultation bilaterally AUSCULTATION: clear to auscultation bilaterally Cardio: COMMON NORMALS: regular rate, regular rhythm, S1 normal heart sound present and S2 normal heart sound present RATE: regular rate RHYTHM: r egular rhythm HEART SOUNDS: S1 normal heart sound present and S2 normal heart sound present GI: COMMON NORMALS: Normal to inspection, nondistended, normoactive bowel sounds present and non-tender Extremity: COMMON NORMALS: no pedal edema Neuro: COMMON NORMALS: patient oriented x3 Psych: COMMON NORMALS: mental status grossly normal Urinary Catheter Management: Cunningham: Cath Placed During This Visit: yes Reason for Continuing Indwelling Catheter: Accurate Measurement of Urinary Output in Critically Ill Patients Urinary Catheter Date of Insertion: 06/29/24 Urinary Catheter Time of Insertion: 13:59 Data 07/02/24 04:06 07/02/24 07:05 A&P Assessment and plan (1) Shock: (2) Cardiogenic shock: (3) NSTEMI (non-ST elevated myocardial infarction): (4) Acute hypoxic on chronic hypercapnic respiratory failure: (5) Acute renal failure: (6) Encephalopathy acute: (7) Acute on chronic systolic CHF (congestive heart failure), NYHA class 4: (8) Sepsis: Plan Acute hypoxic hypercarbic respiratory failure -Likely secondary to bilateral pleural effusions -Acute on chronic systolic CHF -Possibility of pneumonia? Plan -Continue BiPAP therapy -Can moved to CSU -Will consider diuresis based on clinical progress -Vancomycin, discontinued -Zosyn -Blood cultures -Sputum cultures Shock, resolved -Likely cardiogenic shock -Concerns for possible septic shock Plan -Maintain MAP in 65 -Levophed currently at 10 -On dopamine -Will consider dopamine based on clinical progress -Follow clinical status closely Acute on chronic systolic CHF -History of ischemic cardiomyopathy, -CAD with [facility] 2016 -History of EF less than 15% -Defibrillator in place -Plan -Cardiology consulted -IV diuresis on hold -off pressors as above -Cardiac echo as above -Aspirin, statin Acute renal failure -Could be from diuresis, shock -Component of cardiorenal syndrome -Component of sepsis Plan -CT scan no obstructive uropathy -Renal ultrasound -Nephrology consulted -Stopped IV fluids due to concerns for fluid overload -Patient might require dialysis -Will consider Lasix therapy based on clinical progress NSTEMI -No chest pain complaints -Type I versus type II -Troponins, serial EKGs, telemetry monitoring -Cardiac echo -Heparin drip discontinued currently on subcu heparin -Aspirin, statin Sepsis, resolving -Sepsis features met, given shock, respiratory failure, as above Acute encephalopathy -Neurochecks -Aspiration precautions -NIH stroke scale Hyperglycemia, A1c 6.1, low-dose sliding scale Full code Heparin drip for DVT prophylaxis Plan for today, off pressors, PT OT, starting on Entresto PDMP PDMP Reviewed: Not Reviewed Attestations 2 Medical Necessity Statement*: Patient requires hospitalization for, CHF, acute renal failure, NSTEMI Diagnoses Shock R57.9 Cardiogenic shock R57.0 NSTEMI (non-ST elevated myocardial infarction) I21.4 Acute hypoxic on chronic hypercapnic respiratory failure J96.01; J96.12 Acute renal failure N17.9 Encephalopathy acute G93.40 Acute on chronic systolic CHF (congestive heart failure), NYHA class 4 I50.23 Sepsis A41.9
--- NOTE | 2024-07-02 20:47 | PC.NURSE ---
Addendum entered by Romy London RN 07/02/24 20:48: Moved to new room at 1915 Original Note: Report given to Norman, patient transported via bed to room 105.
[2024-07-02] MEDS: zolpidem 5 mg Tablet 10 MG PO (20:51)
[2024-07-02] MEDS: mirtazapine 30 mg Tablet PO (20:52)
[2024-07-02] MEDS: HYDROcodone-acetaminophen 5-325 mg Tablet 1 TAB PO (20:52)
[2024-07-02 21:13] LABS: Glucose Point of Care 216 mg/dL (70-110)
[2024-07-03] VITALS (13 sets, daily range): BP systolic 116–122; BP diastolic 65–78; PULSE 60–76; RESP 16–28; TEMP 36.7–37.1; O2SAT 92–99
[2024-07-03] MEDS: ipratropium-albuterol 3 mL Neb INHALATION ×3 (01:44→14:27)
[2024-07-03] MEDS: piperacillin-tazobactam 3.375 GM in sodium chloride 0.9% (plus) 50 ML IV ×2 (03:34→12:18)
[2024-07-03 03:44] LABS: Basophils % 0.4 %; Eosinophils # 0.1 10^3/uL (0.0-0.8); Hematocrit 35.5 % (37-53); Lymphocytes # 1.7 10^3/uL (0.8-4.8); Lymphocytes % 18.6 %; Mean Corpuscular Hemoglobin 32.1 pg (27-33); Mean Corpuscular Volume 103.5 fl (82-101); Mean Platelet Volume 11.4 fL (7.4-10.4); Monocytes # 0.8 10^3/uL (0.2-0.9); Monocytes % 8.9 %; Neutrophils # 6.55 10^3/uL (1.8-7.7); Neutrophils % 70.6 %; Nucleated Red Blood Cells % 0 %; Platelet Count 149 10^3/cmm (157-399); Red Blood Count 3.43 10^6/uL (3.85-5.65); Red Cell Distribution Width 13.7 % (12.1-15.1); White Blood Count 9.29 10^3/uL (3.29-11.43)
[2024-07-03] MEDS: pantoprazole 40 mg SDV IVP (05:01)
[2024-07-03 06:25] LABS: Glucose Point of Care 127 mg/dL (70-110)
[2024-07-03 07:13] LABS: Alanine Aminotransferase 10 U/L (0-41); Albumin Level 3.9 g/dL (3.5-5.2); Alkaline Phosphatase 65 U/L (40-130); Blood Urea Nitrogen 15 mg/dL (8-23); C Reactive Protein 4.6 mg/L (0.0-4.9); Calcium 11.7 mg/dL (8.5-10.5); Carbon Dioxide 28 mmol/L (22-29); Chloride 102 mmol/L (98-107); Creatinine Clr Calc Pharmacy 97.7229; Globulin 2.1 g/dL (1.3-4.6); Glomerular Filtration Rate 95.6 mL/min (90-130); Glucose 128 mg/dL (65-115); Magnesium 1.5 mg/dL (1.7-2.3); NT Pro B Type Natriuretic Pept 2025 pg/mL (0-125); Osmolality Calculated 286 mOsm/kg (285-295); Phosphorus 2.2 mg/dL (2.5-4.5); Sodium 137 mmol/L (136-145); Total Bilirubin 0.7 mg/dL (0.15-1.2)
[2024-07-03 07:15] LABS: Anion Gap 11.3 (5-19); Aspartate Amino Transferase 16 U/L (0-40); Potassium 4.3 mmol/L (3.5-5.1)
[2024-07-03] MEDS: budesonide 0.5 mg/2 mL Neb INHALATION (08:10)
[2024-07-03] MEDS: sacubitril/valsartan 24-26 mg Tablet 1 EACH PO (08:34)
[2024-07-03] MEDS: aspirin 81 mg EC Tablet PO (08:34)
[2024-07-03] MEDS: lithium carbonate 300 mg Capsule PO (08:35)
[2024-07-03] MEDS: lamoTRIgine 100 mg Tablet 200 MG PO (08:35)
[2024-07-03] MEDS: HYDROcodone-acetaminophen 5-325 mg Tablet 1 TAB PO (08:35)
[2024-07-03] MEDS: atorvastatin 40 mg Tablet PO (08:35)
[2024-07-03] MEDS: heparin 5,000 unit/mL INJ 1 mL 5000 UNIT SUBCUT (08:37)
--- NOTE | 2024-07-03 09:58 | P.PN_ITS ---
Subjective 2 Subjective: no complaints Medications: Reviewed: Yes Vitals/I&O/Wt Last Vital Signs Temp 98.2 F 07/03/24 07:55 Pulse 67 07/03/24 08:22 Resp 18 07/03/24 08:10 BP 118/78 07/03/24 07:55 Pulse Ox 99 07/03/24 08:12 O2 Del Method Nasal Cannula 07/03/24 08:12 O2 Flow Rate 3 07/03/24 08:12 FiO2 30 07/02/24 02:52 07/02/24 07/03/24 07/03/24 22:59 06:59 14:59 Intake Total 250 / 420 640 / 1060 120 / 120 Output Total 900 / 900 1200 / 2100 Balance -650 / -480 -560 / -1040 120 / 120 Weight last 48 hrs Weight 98.43 kg Weight 98.43 kg Physical Exam 2 Narrative: No distress , on RA Decreased BS joseph per report S1S2 RRR per report + LE edema Urinary Catheter Management: Cunningham: Cath Placed During This Visit: yes Reason for Continuing Indwelling Catheter: Accurate Measurement of Urinary Output in Critically Ill Patients Urinary Catheter Date of Insertion: 06/29/24 Urinary Catheter Time of Insertion: 13:59 Data 07/03/24 03:00 07/03/24 06:39 A&P Assessment and plan (1) Acute renal failure: 1. Acute kidney injury: In the setting of possibly cardiogenic shock, hypotension patient currently on dopamine and Levophed. Baseline creatinine was 1.1 in April 2024., cR peaked @ 3.1, improved to 1.0 today UOP picked up Monitor 2. Shock, likely cardiogenic, on Levophed and dopamine currently 3. Coronary previous disease with NSTEMI, on heparin drip 4. Acute on chronic respiratory failure will sign off , pls call with questions patient evaluated using audiovisual cart. Time spent 40 minutes. PDMP PDMP Reviewed: Not Reviewed Attestations 2 Medical Necessity Statement*: per palma Coding Level of Care Code Acute Code for Chg Fwd Diagnoses Acute renal failure N17.9
--- NOTE | 2024-07-03 11:28 | P.DS_ITS ---
Discharge Providers Date of Admission: 06/24/24 00:09 Date of Discharge: July 03, 2024 Attending Provider at Admission: Sophie Marks MD Attending Provider at Discharge: Neptali Dsouza MD Primary Care Provider: Chanell Lee MD Diagnoses at Discharge Discharge Diagnosis (1) Acute renal failure: Status: Acute Reason for Visit Reason for Visit: AMS Hospital Course Hospital Course Jim Carney is a 68yo, [place], with CAD, [place] in 2016, ischemic Cardiomyopathy, chronic HFrEF (EF <30%) s/p PPM/ICD, chronic hypoxic respiratory failure on continuous 3L, COPD, Bipolar I disorder, who presented to the ED on 06/23/2024 w/ altered mental status, acute on chronic hypoxic hypercapneic respiratory failure, Patient had a prolonged hospitalization please look at my last progress note for further detail Patient was admitted to [facility] for acute on chronic hypoxic hypercapnic respiratory failure secondary to ischemic cardiomyopathy and systolic CHF, received IV diuresis, overall respiratory status improved Acute encephalopathy secondary to hypercapnic respiratory failure, resolved with BiPAP therapy, diuresis Patient hospitalization was complicated by shock, multifactorial from cardiogenic shock, possible septic shock received broad-spectrum diuretic therapy, managed on multiple pressors, requiring ICU admission, cardiology consultation, acute renal failure, NSTEMI, nephrology consultation. Overall patient's clinical condition improved, weaned off pressors, renal function improved, urine output improved, respiratory status improved, ambulating without significant symptomatology or hypotension. Overall he is -6.5 L, on 3 L nasal cannula, normotensive, no recurrent episodes of hypotension. patient will be discharged with a close follow-up with cardiology as outpatient, discharged on Entresto, diuretic therapy with close follow-up primary care and cardiology Physical Exam Const: COMMON NORMALS: no acute distress and patient oriented x3 Resp: COMMON NORMALS: normal respiratory effort, No retractions, No use of accessory muscles and clear to auscultation bilaterally AUSCULTATION: clear to auscultation bilaterally Cardio: COMMON NORMALS: regular rate, regular rhythm, S1 normal heart sound present and S2 normal heart sound present RATE: regular rate RHYTHM: regular rhythm HEART SOUNDS: S1 normal heart sound present and S2 normal heart sound present GI: COMMON NORMALS: Normal to inspection, nondistended, normoactive bowel sounds present and non-tender Extremity: COMMON NORMALS: no pedal edema Neuro: COMMON NORMALS: patient oriented x3 Psych: COMMON NORMALS: mental status grossly normal Urinary Catheter Management: Cunningham: Cath Placed During This Visit: yes Reason for Continuing Indwelling Catheter: Accurate Measurement of Urinary Output in Critically Ill Patients Urinary Catheter Date of Insertion: 06/29/24 Urinary Catheter Time of Insertion: 13:59 Discharge Data Studies Completed and Pending Completed Studies During Hospitalization Category Date Time Status CT chest abdomen pelvis [[place] [id number] Cat Scan 06/29/24 10:12 Completed ] Routine CT chest wo con [id number] Stat Cat Scan 06/24/24 00:[address] head wo con* [id number] Stat Cat Scan 06/23/24 21:53 Completed CXRP [XR chest 1V portable [id number]] Routine Exams 06/29/24 11:47 Completed XR chest 1V portable [id number] Routine Exams 06/26/24 08:53 Completed XR chest 1V portable [id number] Routine Exams 06/28/24 06:00 Completed XR chest 1V portable [id number] Routine Exams 06/30/24 07:00 Completed XR chest 1V portable [id number] Stat Exams 06/23/24 21:53 Completed XR chest 1V portable [id number] Stat Exams 06/29/24 13:06 Completed XR chest 1V portable [id number] Stat Exams 07/02/24 08:36 Completed CV. echo complete* [id number] Routine Ultrasound 06/29/24 10:08 [place] chest [id number] Routine Ultrasound 06/28/24 07:34 Completed US renal BI* [id number] Routine Ultrasound 06/29/24 09:13 Completed Pending at discharge Category Date Time Status Blood Culture Stat Lab 06/29/24 13:42 Results C Reactive Protein AM LABS Lab 07/04/24 04:00 Ordered C Reactive Protein AM LABS Lab 07/05/24 04:00 Ordered Complete Blood Count w/Auto AM LABS Lab 07/04/24 04:00 Ordered Complete Blood Count w/Auto AM LABS Lab 07/05/24 04:00 Ordered Comprehensive Metabolic Panel AM LABS Lab 07/04/24 04:00 Ordered Comprehensive Metabolic Panel AM LABS Lab 07/05/24 04:00 Ordered Magnesium AM LABS Lab 07/04/24 04:00 Ordered Magnesium AM LABS Lab 07/05/24 04:00 Ordered NT Pro B Type Natriuretic Pept QAM Lab 07/04/24 06:00 Ordered NT Pro B Type Natriuretic Pept QAM Lab 07/05/24 06:00 Ordered Phosphorus AM LABS Lab 07/04/24 04:00 Ordered Phosphorus AM LABS Lab 07/05/24 04:00 Ordered Sputum Culture and Gram Stain Stat Lab 06/29/24 09:15 Uncollected Radiology Impressions Head CT 06/23/24 21:53 IMPRESSION: Chronic findings as described. Chest CT 06/24/24 00:31 IMPRESSION: Moderate left effusion. Small right effusion. Chest Ultrasound 06/28/24 07:34 IMPRESSION: No bilateral pleural effusions. Renal Ultrasound 06/29/24 09:13 IMPRESSION: 1. Bilateral kidney cysts. 2. No hydronephrosis. Chest/Abdomen/Pelvis CT 06/29/24 10:12 IMPRESSION: 1. Bilateral pleural effusions with compressive atelectasis moderate on the left lower lung, small on the right lower lung. 2. Marked cardiomegaly and trace of pericardial effusion. IMPRESSION: 1. No acute intra-abdominal findings. 2. Diverticulosis without any evidence of acute diverticulitis. 3. Prostatomegaly with nodular indentation of the bladder base. Defer to clinical and laboratory assessment/PSA levels. COMMENTS: Consistent with the [employer]'s Incidental Findings Committee white paper (J Am Elvis Radiol 2018): Any incidental renal lesion less than 1 cm or classified as too small to characterize, or any incidental cystic renal lesion characterized as simple-appearing, is likely benign. No follow-up imaging is recommended for these lesions per consensus recommendations based on imaging criteria. Chest X-Ray 07/02/24 08:36 IMPRESSION: Unchanged small left pleural effusion and left lower lobe consolidation which may reflect pneumonia versus atelectasis Laboratory Results WBC 9.29 10^3/uL (3.29-11.43) 07/03/24 03:00 RBC 3.43 10^6/uL (3.85-5.65) L 07/03/24 03:00 Hgb 11.00 g/dL (11.27-16.99) L 07/03/24 03:00 Hct 35.5 % (37-53) L 07/03/24 03:00 MCV 103.5 fl (82-101) H 07/03/24 03:00 MCH 32.1 pg (27-33) 07/03/24 03:00 MCHC 31.0 g/dL (30-55) 07/03/24 03:00 RDW 13.7 % (12.1-15.1) 07/03/24 03:00 Plt Count 149 10^3/cmm (157-399) L 07/03/24 03:00 MPV 11.4 fL (7.4-10.4) H 07/03/24 03:00 Neut % (Auto) 70.6 % 07/03/24 03:00 Lymph % (Auto) 18.6 % 07/03/24 03:00 [place] % (Auto) 8.9 % 07/03/24 03:00 Eos % (Auto) 1.0 % 07/03/24 03:00 Baso % (Auto) 0.4 % 07/03/24 03:00 Neut # (Auto) 6.55 10^3/uL (1.8-7.7) 07/03/24 03:00 Lymph # (Auto) 1.7 10^3/uL (0.8-4.8) 07/03/24 03:00 [place] # (Auto) 0.8 10^3/uL (0.2-0.9) 07/03/24 03:00 Eos # (Auto) 0.1 10^3/uL (0.0-0.8) 07/03/24 03:00 Baso # (Auto) 0.0 10^3/uL (0.0-0.1) 07/03/24 03:00 Nucleated RBC % (auto) 0 % 07/03/24 03:00 Nucleated RBCs # 0.0 /100WBC 07/03/24 03:00 ESR < 1 mm/hr (0-10) 06/29/24 12:42 PT 13.60 SECONDS (12.1-14.9) 07/01/24 04:34 INR 0.97 (0.8-1.2) 07/01/24 04:34 APTT 37.6 SECONDS (23.9-36.7) H 06/30/24 10:05 Specimen Type Arterial 07/01/24 03:31 Sample Site Radial, right 07/01/24 03:31 ABG pH 7.40 (7.35-7.45) 07/01/24 03:31 ABG pCO2 53.6 mmHg (35-45) H 07/01/24 03:31 ABG pO2 67.6 mmHg (80.0-100.0) L 07/01/24 03:31 ABG PO2/FiO2 Ratio 225 07/01/24 03:31 ABG HCO3 32.9 mmol/L (22-26) H 07/01/24 03:31 ABG O2 Saturation 94.7 06/29/24 15:53 ABG Base Excess 6.8 mmol/L (-2.0-2.0) H 07/01/24 03:31 Obed Test Pos 07/01/24 03:31 A-a O2 Gradient 13.0 mmHg (5-10) H 06/29/24 15:53 Hematocrit 34.1 % (42-52) L 07/01/24 03:31 Hgb O2 Saturation 92.5 % (95-100) L 06/29/24 15:53 Carboxyhemoglobin 1.4 %THgb (0.4-20.1) 06/29/24 15:53 Methemoglobin 1.0 % (0.4-1.5) 06/29/24 15:53 Total Hemoglobin 12.2 g/dL (14-18) L 06/29/24 15:53 Sodium 135.0 mmol/L (131-143) 06/29/24 15:53 Potassium 3.3 mmol/L (3.5-5.0) L 06/29/24 15:53 Glucose 123.0 mg/dL (70-115) H 06/29/24 15:53 Ionized Calcium 1.3 mmol/L (1.1-1.4) 06/29/24 15:53 O2 Delivery Device Bipap 07/01/24 03:31 O2 Liters/Min 4.0 % 06/30/24 05:10 FiO2 30.0 % 07/01/24 03:31 Waste Transportation Technician ID Jag 07/01/24 03:31 Sodium 137 mmol/L (136-145) 07/03/24 06:39 Potassium 4.3 mmol/L (3.5-5.1) 07/03/24 06:39 Chloride 102 mmol/L (98-107) 07/03/24 06:39 Carbon Dioxide 28 mmol/L (22-29) 07/03/24 06:39 Anion Gap 11.3 (5-19) 07/03/24 06:39 BUN 15 mg/dL (8-23) 07/03/24 06:39 Creatinine 0.8 mg/dL (0.7-1.2) 07/03/24 06:39 GFR Calculation 95.6 mL/min (90-130) 07/03/24 06:39 Glucose 128 mg/dL (65-115) H 07/03/24 06:39 POC Glucose 127 mg/dL (70-110) H 07/03/24 06:17 Estimat Average Glucose 128 06/29/24 12:42 Hemoglobin A1c 6.1 % (4.0-6.0) H 06/29/24 12:42 Calculated Osmolality 286 mOsm/kg (285-295) 07/03/24 06:39 Lactic Acid 0.7 mmol/L (0.5-2.2) 06/29/24 12:42 Lactate 0.8 mmol/L (0.5-2.2) 07/02/24 07:05 Calcium 11.7 mg/dL (8.5-10.5) H 07/03/24 06:39 Phosphorus 2.2 mg/dL (2.5-4.5) L D 07/03/24 06:39 Magnesium 1.5 mg/dL (1.7-2.3) L 07/03/24 06:39 Total Bilirubin 0.7 mg/dL (0.15-1.2) 07/03/24 06:39 AST 16 U/L (0-40) 07/03/24 06:39 ALT 10 U/L (0-41) 07/03/24 06:39 Alkaline Phosphatase 65 U/L (40-130) 07/03/24 06:39 Lactate Dehydrogenase 149 U/L (135-225) 06/24/24 07:49 Creatine Kinase 35 U/L (39-308) L 07/01/24 04:34 Troponin T Baseline 186 ng/L (0-15) H* 06/29/24 12:42 Troponin T 120 Minute 167.9 ng/L (0-15) H 06/29/24 15:21 Delta Troponin T -18.1 ABS# (0-10) L 06/29/24 15:21 Troponin T Hi Sens 6Hr 170.5 ng/L (0-15) H 06/29/24 18:50 Troponin T Hi Sens 6Hr Delta -15.5 ng/L (0-12) L 06/29/24 18:50 C-Reactive Protein 4.6 mg/L (0.0-4.9) 07/03/24 06:39 NT-Pro-B Natriuret Pep 2025 pg/mL (0-125) H 07/03/24 06:39 Total Protein 6.0 g/dL (6.6-8.7) L 07/03/24 06:39 Albumin 3.9 g/dL (3.5-5.2) 07/03/24 06:39 Globulin 2.1 g/dL (1.3-4.6) 07/03/24 06:39 Procalcitonin 0.10 ng/mL (0-0.5) 07/02/24 07:05 TSH 0.93 uIU/mL (0.27-4.20) 06/23/24 22:04 Random Cortisol 19.08 ug/dL (2.47-19.5) 06/29/24 12:42 Urine Color Dark yellow (Yellow) A 06/29/24 14:28 Urine Appearance Clear (CLEAR) 06/29/24 14:28 Urine pH 5.0 (5-7) 06/29/24 14:28 Ur Specific [place] 1.019 (1.005-1.030) 06/29/24 14:28 Urine Protein 2+ (Negative) A 06/29/24 14:28 Urine Glucose (UA) Negative (Normal) 06/29/24 14:28 Urine Ketones Trace (Negative) 06/29/24 14:28 Urine Blood Negative (Negative) 06/29/24 14:28 Urine Nitrate Negative (Negative) 06/29/24 14:28 Urine Bilirubin 1+ (Negative) H 06/29/24 14:28 Urine Urobilinogen 1.0 mg/dL (Negative) 06/29/24 14:28 Ur Leukocyte Esterase Trace (Negative) A 06/29/24 14:28 Urine RBC 0-2 /hpf (0-2) 06/29/24 14:28 Urine WBC 0-5 /hpf (0-5) 06/29/24 14:28 Ur Squamous Epith Cells 0-5 /hpf (0-5) 06/29/24 14:28 Amorphous Sediment Not Reportable 06/29/24 14:28 Urine Bacteria 1+ /hpf (NONE) H 06/29/24 14:28 Hyaline Casts 20.27 /lpf 06/29/24 14:28 Vancomycin Trough 10.4 ug/mL (10-15) 06/30/24 10:05 Urine Opiates Screen Negative ng/mL (Negative) 06/23/24 22:36 Ur Barbiturates Screen Negative ng/mL (Negative) 06/23/24 22:36 Ur Phencyclidine Scrn Negative ng/mL (Negative) 06/23/24 22:36 Ur Amphetamines Screen Negative ng/mL (Negative) 06/23/24 22:36 U Benzodiazepines Scrn Negative ng/mL (Negative) 06/23/24 22:36 Urine Cocaine Screen Negative ng/mL (Negative) 06/23/24 22:36 U Marijuana (THC) Screen Positive ng/mL (Negative) H 06/23/24 22:36 Coronavirus (PCR) Negative (Negative) 06/24/24 08:30 Influenza A (PCR) Negative (Negative) 06/24/24 08:30 Influenza Type B (PCR) Negative (Negative) 06/24/24 08:30 RSV (PCR) Negative (Negative) 06/24/24 08:30 Vitals Last Vital Signs Temp 98.2 F 07/03/24 07:55 Pulse 67 07/03/24 08:22 Resp 18 07/03/24 08:10 BP 118/78 07/03/24 07:55 Pulse Ox 99 07/03/24 08:12 O2 Del Method Nasal Cannula 07/03/24 08:12 O2 Flow Rate 3 07/03/24 08:12 FiO2 30 07/02/24 02:52 Discharge Plan Discharge Patient Disposition: Home Health Service Condition: Stable Prescriptions: New amoxicillin-pot clavulanate 875-125 mg tablet 1 tab PO BID 3 Days Qty: 6 0RF Continued lamotrigine 200 mg tablet 200 mg PO DAILY pantoprazole 40 mg tablet,delayed release (DR/EC) 40 mg PO DAILY atorvastatin 80 mg tablet 80 mg PO DAILY gabapentin 300 mg capsule 300 mg PO TID aspirin [Adult Low Dose Aspirin] 81 mg tablet,delayed release (DR/EC) 81 mg PO DAILY Qty: 90 3RF lithium carbonate 300 mg capsule 300 mg PO DAILY mecobalamin (vitamin B12) 1,000 mcg tablet,chewable 1,000 mcg PO DAILY cholecalciferol (vitamin D3) 50 mcg (2,000 unit) capsule 50 mcg PO DAILY melatonin 10 mg capsule 10 mg PO DAILY methocarbamol 500 mg Tablet 500 mg PO Q12H PRN (Reason: muscle spasms) guaifenesin [Mucinex] 600 mg Tablet Extended Release 12hr 600 mg PO BID albuterol sulfate 90 mcg/actuation HFA aerosol inhaler 2 puff INHALATION Q6H PRN (Reason: Shortness Of Breath) 30 Days Qty: 30 0RF sacubitril-valsartan [Entresto] 24-26 mg tablet 1 tab PO BID acetaminophen [Tylenol Extra Strength] 500 mg Tablet 1,000 mg PO Q6H PRN (Reason: Fever Or Pain) quetiapine 100 mg Tablet 50 - 100 mg PO BEDTIME PRN (Reason: DEPRESSION) mirtazapine 30 mg Tablet 30 mg PO BEDTIME Held furosemide 40 mg tablet 40 mg PO DIRECTED Qty: 135 3RF Hold Instructions: Resume on 07/10/24. Rx Instructions: Take 40mg (1tab) in the AM and 20mg (1/2 tab) in the afternoon Discontinued doxazosin 8 mg tablet 4 mg PO DAILY carvedilol 25 mg tablet 12.5 mg PO DAILY Rx Instructions: must administer with a meal/food ibuprofen [Advil] 200 mg Tablet 800 mg PO Q6H PRN (Reason: Fever Or Pain) Discharge Orders: Discharge Order (Routine); Ordered 07/03/24 Ordered By: Neptali Dsouza Referrals: [facility] [Outside] Chanell Lee MD [Primary Care Provider] - 07/10/24 2:30 pm Laila Armando FNP [Nurse Practitioner] - 07/08/24 2:30 pm (CHF) Discharge Diet: Usual diet Discharge Activity: Resume usual activity and Oxygen as instructed Patient Instructions: Amoxicillin/Clavulanate Potassium (By mouth) (Augmentin, Augmentin..., Altered Mental Status (ED), Chronic Respiratory Failure (DC), CHF Stoplight, Opioid Safety Activity Restrictions/Additional Instructions: Please follow up with your primary care doctor in 4-7 days to make sure your breathing and fluid in your lungs are still stable. Discharge Attestations Time Spent in Discharge Care*: greater than 30 min Quality Metrics Clinical Quality Measures [ No reported AMI, CVA or VTE this stay] Coding Level of Care Code 67065 Total time (in minutes) for Discharge: 45 Diagnoses Acute renal failure N17.9
[2024-07-03 11:38] LABS: Glucose Point of Care 419 mg/dL (70-110)
--- NOTE | 2024-07-03 11:50 | PC.SOCIAL ---
IMM Updated Updated pt on IMM. No questions voiced. Provided pt a copy. Initialed, dated, & timed copy in chart.
[2024-07-03] MEDS: insulin lispro 100 unit/1 mL SUBCUT (12:19)
--- NOTE | 2024-07-03 14:53 | P.PN_ITS ---
<Statement entered by Remington Pringle MD - 07/04/24 00:30> Patient was evaluated and cared for in conjunction with an advanced practice practitioner. I personally examined the patient and reviewed the chart and all pertinent data including imaging, telemetry, and laboratory results. I discussed the patient in detail with the advanced practice practitioner. Please see their note for complete H&P testing result and agreed upon plan of care for the patient. Denies any complaint GENERAL: Patient is alert, awake and oriented x3. HEART: Regular S1 and S2. No murmur, rub or gallop. LUNGS: Clear to auscultate bilaterally. CENTRAL NERVOUS SYSTEM: Grossly nonfocal. EXTREMITIES: Lower extremities with out edema bilaterally. Assessment and plan Systolic heart failure now compensated Cardiomyopathy Appear to be euvolemic Continue plan as below Subjective 2 Subjective: Patient doing well overall with no complaints. Lung sounds are clear throughout. He appears euvolemic. He was started on Entresto yesterday and he has tolerated this well. Vitals/I&O/Wt Last Vital Signs Temp 98.8 F 07/03/24 12:00 Pulse 60 07/03/24 14:27 Resp 20 H 07/03/24 14:27 BP 121/77 07/03/24 12:00 Pulse Ox 97 07/03/24 14:27 O2 Del Method Nasal Cannula 07/03/24 14:27 O2 Flow Rate 3 07/03/24 14:27 FiO2 30 07/02/24 02:52 07/02/24 07/03/24 07/03/24 22:59 06:59 14:59 Intake Total 250 / 420 640 / 1060 170 / 170 Output Total 900 / 900 1200 / 2100 700 / 700 Balance -650 / -480 -560 / -1040 -530 / -530 Weight last 48 hrs Weight 217 lb Weight 217 lb Physical Exam 2 Narrative: General: No apparent distress, healthy appearing, well nourished HENMT: normoceophalic Neck: No carotid bruit bilaterally Muskuloskeletal: Full ROM Lymphatic: no lymphedema noted Respiratory: Normal respiratory effort, clear to auscultation bilaterally throughout all lung aguayo, no use of accessory muscles Cardio: No JVD, regular rate, regular rhythm, S1 S2 normal, no murmurs, peripheral pulses 2+ radial palpated bilaterally GI: Normal to inspection, nondistended Extremities: Full ROM, normal, normal capillary refill, no cyanosis or edema Neuro: Alert and oriented x4, no focal motor deficits Psych: Affect normal, denies suicidal ideation, mental status grossly normal Skin: No rashes or lesions noted, no wounds Urinary Catheter Management: Cunningham: Cath Placed During This Visit: yes, but has since been removed by the nurse Reason for Continuing Indwelling Catheter: Accurate Measurement of Urinary Output in Critically Ill Patients Urinary Catheter Date of Insertion: 06/29/24 Urinary Catheter Time of Insertion: 13:59 Date Urinary Catheter Removed: 07/03/24 Time Urinary Catheter Discontinued: 13:00 Data 07/03/24 03:00 07/03/24 06:39 A&P Assessment and plan (1) Shock: (2) Elevated troponin: (3) Hyperlipidemia, unspecified: (4) Cardiac resynchronization therapy 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 Patient may increase and take extra as needed weight gain of 3 pounds in a day or 5 pounds in a week or worsening edema. From a cardiology standpoint he may be discharged. We will see him on an outpatient basis PDMP PDMP Reviewed: Not Reviewed Attestations 2 Medical Necessity Statement*: From a cardiology standpoint patient may be discharged Coding Level of Care Code Acute Code for Chg Fwd Diagnoses Shock R57.9 Elevated troponin R79.89 Hyperlipidemia, unspecified E78.5 Cardiac resynchronization therapy defibrillator (MANAGER DISH-D) in place Z95.810
--- NOTE | 2024-07-03 16:53 | PC.NURSE ---
discharge instructions given and explained.pt and spouse verb understanding of instructions.discharged via w/c to exit at this time.spouse to drive pt home
[2024-07-03 17:05] LABS: Glucose Point of Care 98 mg/dL (70-110)
--- NOTE | 2024-07-04 18:20 | PC.NURSE ---
Patient's called today saying that [facility] pharmacy only had one of the medications that were called in. The other two medications were sent to the hospital pharmacy. [facility] pharmacy is called with the coreg and potassium per patient's .
== END 2024-07-03 16:55 | disposition home health service (06) | DRG 280 ==
LOC: ER 23:34 → ER IP 06-24 00:22 → ICU 06-24 07:23 → ER IP 06-24 10:09 → CSU 06-27 14:28 → ICU 06-28 20:18 → CSU 07-02 19:34
PROVIDERS: Internal Medicine; Admitting Provider Internal Medicine; Emergency Provider Nurse Practitioner Family; PCP Family Medicine; Visit Provider Family Medicine
DX: I50.23 Acute on chronic systolic (congestive) heart failure (principal); A41.9 Sepsis, unspecified organism; I21.4 Non-ST elevation (NSTEMI) myocardial infarction; J96.21 Acute and chronic respiratory failure with hypoxia; J96.22 Acute and chronic respiratory failure with hypercapnia; R57.0 Cardiogenic shock; R65.20 Severe sepsis without septic shock; N17.9 Acute kidney failure, unspecified; G93.40 Encephalopathy, unspecified; I25.10 Atherosclerotic heart disease of native coronary artery without angina pectoris; J44.9 Chronic obstructive pulmonary disease, unspecified; F31.9 Bipolar disorder, unspecified; I25.5 Ischemic cardiomyopathy; E78.5 Hyperlipidemia, unspecified; K21.9 Gastro-esophageal reflux disease without esophagitis; N40.0 Benign prostatic hyperplasia without lower urinary tract symptoms; R73.9 Hyperglycemia, unspecified; I25.2 Old myocardial infarction; Z95.0 Presence of cardiac pacemaker; Z99.81 Dependence on supplemental oxygen; Z87.891 Personal history of nicotine dependence; Z79.82 Long term (current) use of aspirin; Z79.02 Long term (current) use of antithrombotics/antiplatelets
CPT/HCPCS: 36415; 36416; 36573; 36592; 36600; 51702; 70450; 71045; 71250; 74176; 76604; 76770; 80048; 80051; 80053; 80202; 80306; 81001; 82330; 82533; 82550; 82803; 82805; 82962; 83036; 83605; 83615; 83735; 83880; 84100; 84145; 84443; 84484; 85025; 85610; 85651; 85730; 86140; 87040; 87637; 93005; 93306; 94640; 94660; 94664; 96372; 96376; 97110; 97116; 97161; 97165; 99291; C1751; J1265; J1644; J1650; J1815; J1940; J2470; J2543; J2919; J3370; J3475; J7030; J7040; J7050; J7626; P9046; Q0162; Q3014

== ENCOUNTER → 2024-07-08 14:43 | Outpatient (BNVA) | payer OTHER, SELFPAY | PROVIDERS: PCP Family Medicine; Visit Provider Nurse Practitioner Family | DX: I11.0 Hypertensive heart disease with heart failure (principal); I50.9 Heart failure, unspecified; R06.83 Snoring; J96.21 Acute and chronic respiratory failure with hypoxia; I50.23 Acute on chronic systolic (congestive) heart failure; I25.2 Old myocardial infarction; N28.9 Disorder of kidney and ureter, unspecified; E87.70 Fluid overload, unspecified; E87.29 Other acidosis; G47.30 Sleep apnea, unspecified; Z87.891 Personal history of nicotine dependence | CPT/HCPCS: 36415; 80048; 83880; 99214 ==

== ENCOUNTER 2024-08-21 08:34 | Inpatient (IN) | payer OTHER, SELFPAY ==
[2024-08-21] VITALS (72 sets, daily range): BP systolic 62–165; BP diastolic 41–110; PULSE 14–98; RESP 12–60; TEMP 36.3–37.6; O2SAT 84–100; BMI 39.5; BMI 35.2
[2024-08-21] MEDS: midazolam hcl 100 MG/100 ML BAG IV (08:40)
[2024-08-21] MEDS: fentaNYL 1,000 MCG/100 ML BAG 2.5 MCG IV (08:40)
[2024-08-21] MEDS: succinylcholine 20 mg/mL SDV 10mL 100 MG IVP (08:43)
[2024-08-21] MEDS: etomidate 2 mg/mL INJ SDV 10 mL 20 MG IVP (08:43)
--- NOTE | 2024-08-21 08:47 | XR_ITS ---
WS: [id number] Exam: XR chest 1V portable [id number] Date/Time of Exam: 08/21/2024 8:57 AM Reason For Exam: dyspnea/cough Comparison 07/02/2024. ET tube in satisfactory position ending about 6 cm above the severo. An enteric tube is noted in the midline and the tip is out of the [id number] however the sideport of the tube is probably at the gastroesophageal junction. Permanent cardiac pacer overlies the LEFT chest. There is consolidation in the LEFT lower lobe. Increasing left-sided pleural effusion since the last exam. The RIGHT lung is clear and fully inflated. The heart is enlarged but unchanged in size. The mediastinum is normal in contour. Bony structures are intact. XR/XR chest 1V portable [id number] IMPRESSION: 1. LEFT lower lobe consolidation and increasing LEFT pleural effusion since the prior study. 2. Cardiac enlargement unchanged. 3. ET tube in satisfactory location. 4. Enteric tube in place with the sideport of the tube probably at the GE junct ion. The tip of the tube is out of the [id number].
--- NOTE | 2024-08-21 08:50 | W.ED.GENADLT ---
HPI - General Adult General: Chief complaint: Shortness of Breath/Dyspnea Stated complaint: SOB, COPD, CHF Time Seen by Provider: 08/21/24 08:47 History of Present Illness: 68-year-old male with a history of known coronary disease and a severe ischemic cardiomyopathy presents emergency room via EMS and is pending respiratory failure respiratory rate approaching 40 he is nonresponsive his sats however are maintaining good at 98 to 99% on 15 L by nonrebreather. Only history is per the medics the family had noticed he was having worsening difficulty with breathing beginning last night. They were unable to convince him to come to the emergency room. They have a pulse oximeter at home and had checked his oxygen at home found to be 60 and 70% per the report so they can call 911. Patient was in enough respiratory distress when EMS first encountered and they applied oxygen immediately did not have a baseline O2 sat from the scene. He did respond to the oxygen on arrival here his sats were 98 to 99% on the nonrebreather as above. Reviewing the chart he had a stress test in late April that showed an ejection fraction of 17% global hypokinesis but there was no reversible ischemic areas. Related Data Home Medications ?Medication ?Instructions ?Recorded ?Confirmed gabapentin 300 mg capsule 900 mg PO BEDTIME 05/05/22 08/21/24 lamotrigine 200 mg tablet 200 mg PO BEDTIME 05/05/22 08/21/24 pantoprazole 40 mg tablet,delayed 40 mg PO QAM 05/05/22 08/21/24 release guaifenesin 600 mg tablet, 600 mg PO BID 05/21/24 08/21/24 extended release 12 hr (Mucinex) methocarbamol 500 mg tablet 500 mg PO Q12H PRN muscle spasms 05/21/24 08/21/24 mecobalamin (vitamin B12) 1,000 1,000 mcg PO DAILY 06/18/24 08/21/24 mcg chewable tablet melatonin 10 mg capsule 10 mg PO DAILY 06/18/24 08/21/24 acetaminophen 500 mg tablet 1,000 mg PO Q6H PRN Fever Or Pain 06/24/24 08/21/24 (Tylenol Extra Strength) mirtazapine 30 mg tablet 30 mg PO BEDTIME 06/24/24 08/21/24 quetiapine 100 mg tablet 100 mg PO BEDTIME PRN DEPRESSION 06/24/24 08/21/24 sacubitril 24 mg-valsartan 26 mg 1 tab PO BID 06/24/24 08/21/24 tablet (Entresto) albuterol sulfate 90 mcg/actuation 2 puff inhalation QID PRN copd 08/21/24 08/21/24 aerosol inhaler atorvastatin 80 mg tablet 80 mg PO QPM 08/21/24 08/21/24 carvedilol 6.25 mg tablet 3.125 mg PO BID 08/21/24 08/21/24 chlorthalidone 25 mg tablet 25 mg PO DAILY 08/21/24 08/21/24 cholecalciferol (vitamin D3) 50 50 mcg PO DAILY 08/21/24 08/21/24 mcg (2,000 unit) tablet (Vitamin D3) cyanocobalamin (vitamin B-12) 1,000 mcg PO DAILY 08/21/24 08/21/24 1,000 mcg tablet fluticasone 250 mcg-salmeterol 50 1 inh inhalation BID 08/21/24 08/21/24 mcg/dose blistr powdr for inhalation (Advair Diskus) lisinopril 10 mg tablet 10 mg PO DAILY 08/21/24 08/21/24 lithium carbonate 300 mg capsule 300 mg PO BID 08/21/24 08/21/24 metformin 500 mg tablet,extended 500 mg PO DAILY 08/21/24 08/21/24 release 24 hr montelukast 10 mg tablet 10 mg PO QPM 08/21/24 08/21/24 (Singulair) potassium chloride 10 mEq 10 meq PO DAILY 08/21/24 08/21/24 tablet,extended release(part/cryst) tiotropium 2.5 mcg-olodaterol 2.5 2 inh inhalation DAILY 08/21/24 08/21/24 mcg/actuation mist for inhalation (Stiolto Respimat) Previous Rx's ?Medication ?Instructions ?Recorded aspirin 81 mg tablet,delayed 81 mg PO DAILY #90 tabs 05/05/22 release (Adult Low Dose Aspirin) furosemide 40 mg tablet 40 mg PO DAILY 30 days #30 tabs 07/03/24 Allergies Allergy/AdvReac Type Severity Reaction Status Date / Time No Known Allergies Allergy Verified 07/08/24 15:01 Review of Systems General: Reports: ROS unobtainable due to endotracheal tube PFSH ED PFSH: Medical History Osteoporosis without pathological fracture Bipolar disorder, unspecified Benign prostatic hyperplasia without lower urinary tract symptoms Gastritis, unspecified, without bleeding Gastrointestinal stromal tumor of stomach Low back pain, unspecified Umbilical hernia without obstruction or gangrene Hyperparathyroidism s/p parathyroid tumor removal Depression Bipolar 1 disorder Gastrointestinal stromal tumor s/p surgery in 2019 in [place]. No chemo or radiation needed. Hypertension Ischemic cardiomyopathy CAD (coronary artery disease) s/p 1 stent in 2016 Cardiac resynchronization therapy defibrillator (GEOGRAPHIC INFORMATION SYSTEMS ANALYST-D) in place Hyperlipidemia, unspecified Surgical History History of lumbar laminectomy in 2013 in [place] Abdominal aortic aneurysm (AAA) without rupture s/p surgery in 2018 or 2019 in [place] Family History Father Heart attack Social History Smoking and tobacco/nicotine status: former use of tobacco/nicotine (2022) Alcohol intake: never Substance/Drug Use: current Physical Exam HENMT: COMMON NORMALS: normocephalic, atraumatic and hearing grossly normal bilaterally HEAD & SCALP: normocephalic and atraumatic Cardio: COMMON NORMALS: regular rate, regular rhythm and No murmurs present (Cardio) RATE: regular rate RHYTHM: regular rhythm GI: COMMON NORMALS: Soft to palpation and No hepatosplenomegaly present AUSCULTATION: Yes normoactive bowel sounds PALPATION: Yes Soft to palpation, No Tenderness to palpation present (GI), No Guarding due to palpation present (GI) and Yes No hepatosplenomegaly present Extremity: COMMON NORMALS: normal to inspection, capillary refill normal and no calf tenderness Skin: COMMON NORMALS: no rashes or lesions noted GENERAL SKIN EXAM: no rashes or lesions noted Procedures Intubation sedative: Etomidate Mg Given: 20 paralytic: Succinylcholine Mg Given: 100 Laryngoscope: fiber optic video scope ET Tube Size: 8 ET Tube Uncuffed: No Tube Secured Depth (cm): 22 Tube Secured Location: teeth Tube Placement Confirmation: visualized tube passing through cords, equal breath sounds bilaterally, no breath sounds over epigastrium and confirmation by capnometry Patient Tolerated Procedure: well Intubation Complications: none Course Vital Signs: Vital signs: Vital Signs Temperature 98.2 F 08/21/24 16:44 Pulse Rate 60 08/21/24 16:44 Respiratory Rate 14 08/21/24 16:44 Blood Pressure 109/60 08/21/24 16:44 Pulse Oximetry 96 08/21/24 16:44 Oxygen Delivery Me thod Mechanical Ventil ation 08/21/24 16:44 Oxygen Flow Rate 15 08/21/24 08:45 Fraction of Inspir ed Oxygen 35 08/21/24 15:40 MDM - General Adult Medical Decision Making Initial troponin 82-hour troponin did not show significant delta patient is an EF of 17%. There is also question of pneumonia with a pleural effusion on the left. Cover with antibiotics. His hypercapnia began to improve after he was intubated. Discussed with she said he is actually been sick for several days. Discussed with hospitalist orders written for ICU. Medical Records I reviewed the patient's medical records. Lab Data I reviewed the patient's lab results. 08/21/24 07:40 08/21/24 09:17 Radiology Impressions Chest Ultrasound 08/21/24 10:28 IMPRESSION: Moderate LEFT pleural effusion. Thoracentesis Ultrasound 08/21/24 10:30 IMPRESSION: 1. LEFT thoracentesis yielding 1000 cc of fluid. 2. Chest radiograph to follow to evaluate for pneumothorax. Chest X-Ray 08/21/24 14:33 IMPRESSION: 1. No pneumothorax status post LEFT thoracentesis. Laboratory Results WBC 14.05 10^3/uL (3.29-11.43) H 08/21/24 07:40 RBC 4.22 10^6/uL (3.85-5.65) 08/21/24 07:40 Hgb 13.00 g/dL (11.27-16.99) 08/21/24 07:40 Hct 43.6 % (37-53) 08/21/24 07:40 MCV 103.3 fl (82-101) H 08/21/24 07:40 MCH 30.8 pg (27-33) 08/21/24 07:40 MCHC 29.8 g/dL (30-55) L 08/21/24 07:40 RDW 13.3 % (12.1-15.1) 08/21/24 07:40 Plt Count 314 10^3/cmm (157-399) 08/21/24 07:40 MPV 11.0 fL (7.4-10.4) H 08/21/24 07:40 Neut % (Auto) 79.4 % 08/21/24 07:40 Lymph % (Auto) 12.8 % 08/21/24 07:40 [place] % (Auto) 6.5 % 08/21/24 07:40 Eos % (Auto) 0.0 % 08/21/24 07:40 Baso % (Auto) 0.6 % 08/21/24 07:40 Neut # (Auto) 11.16 10^3/uL (1.8-7.7) H 08/21/24 07:40 Lymph # (Auto) 1.8 10^3/uL (0.8-4.8) 08/21/24 07:40 [place] # (Auto) 0.9 10^3/uL (0.2-0.9) 08/21/24 07:40 Eos # (Auto) 0.0 10^3/uL (0.0-0.8) 08/21/24 07:40 Baso # (Auto) 0.1 10^3/uL (0.0-0.1) 08/21/24 07:40 Nucleated RBC % (auto) 0 % 08/21/24 07:40 Nucleated RBCs # 0.0 /100WBC 08/21/24 07:40 Specimen Type Arterial 08/21/24 10:12 Sample Site Brachial, right 08/21/24 10:12 ABG pH 7.46 (7.35-7.45) H 08/21/24 10:12 ABG pCO2 62.4 mmHg (35-45) H* 08/21/24 10:12 ABG pO2 136.0 mmHg (80.0-100.0) H 08/21/24 10:12 ABG PO2/FiO2 Ratio 272 08/21/24 10:12 ABG HCO3 44.3 mmol/L (22-26) H 08/21/24 10:12 ABG O2 Saturation > 99.1 08/21/24 10:12 ABG Base Excess 17.6 mmol/L (-2.0-2.0) H 08/21/24 10:12 Obed Test N/a 08/21/24 10:12 A-a O2 Gradient 19.2 mmHg (5-10) H 08/21/24 10:12 Hematocrit 34.4 % (42-52) L 08/21/24 10:12 Hgb O2 Saturation 98.1 % (95-100) 08/21/24 10:12 Carboxyhemoglobin 1.7 %THgb (0.4-20.1) 08/21/24 10:12 Methemoglobin 0.3 % (0.4-1.5) L 08/21/24 10:12 Total Hemoglobin 11.2 g/dL (14-18) L 08/21/24 10:12 Sodium 138.0 mmol/L (131-143) 08/21/24 10:12 Potassium 3.8 mmol/L (3.5-5.0) 08/21/24 10:12 Glucose 217.0 mg/dL (70-115) H 08/21/24 10:12 Ionized Calcium 1.4 mmol/L (1.1-1.4) 08/21/24 10:12 O2 Delivery Device Vent 08/21/24 10:12 FiO2 50.0 % 08/21/24 10:12 Tidal Volume 0.50 08/21/24 10:12 PEEP 8.0 cmH20 08/21/24 10:12 Lawyer Criminal ID [place] 08/21/24 10:12 Sodium 137 mmol/L (136-145) 08/21/24 09:17 Potassium 4.6 mmol/L (3.5-5.1) 08/21/24 09:17 Chloride 92 mmol/L (98-107) L 08/21/24 09:17 Carbon Dioxide 41 mmol/L (22-29) H 08/21/24 09:17 Anion Gap 8.6 (5-19) 08/21/24 09:17 BUN 12 mg/dL (8-23) 08/21/24 09:17 Creatinine 0.9 mg/dL (0.7-1.2) 08/21/24 09:17 GFR Calculation 83.4 mL/min (90-130) L 08/21/24 09:17 Glucose 245 mg/dL (65-115) H 08/21/24 09:17 Calculated Osmolality 292 mOsm/kg (285-295) 08/21/24 09:17 Lactic Acid 0.9 mmol/L (0.5-2.2) 08/21/24 07:40 Calcium 11.1 mg/dL (8.5-10.5) H 08/21/24 09:17 Magnesium 1.8 mg/dL (1.7-2.3) 08/21/24 09:17 Total Bilirubin 0.5 mg/dL (0.15-1.2) 08/21/24 09:17 AST 13 U/L (0-40) 08/21/24 09:17 ALT 7 U/L (0-41) 08/21/24 09:17 Alkaline Phosphatase 104 U/L (40-130) 08/21/24 09:17 Creatine Kinase 65 U/L (39-308) 08/21/24 09:17 Troponin T Baseline 83 ng/L (0-15) H 08/21/24 07:40 Troponin T 120 Minute 83.25 ng/L (0-15) H 08/21/24 09:17 Delta Troponin T 0.25 ABS# (0-10) 08/21/24 09:17 NT-Pro-B Natriuret Pep 3184 pg/mL (0-125) H 08/21/24 09:17 Total Protein 6.3 g/dL (6.6-8.7) L 08/21/24 09:17 Albumin 4.1 g/dL (3.5-5.2) 08/21/24 09:17 Globulin 2.2 g/dL (1.3-4.6) 08/21/24 09:17 Lipase 13 U/L (13-60) 08/21/24 09:17 Urine Color Yellow (Yellow) 08/21/24 09:23 Urine Appearance Clear (CLEAR) 08/21/24 09:23 Urine pH 5.5 (5-7) 08/21/24 09:23 Ur Specific [place] 1.021 (1.005-1.030) 08/21/24 09:23 Urine Protein 4+ (Negative) A 08/21/24 09:23 Urine Glucose (UA) Trace (Normal) H 08/21/24 09:23 Urine Ketones Negative (Negative) 08/21/24 09:23 Urine Blood 1+ (Negative) A 08/21/24 09:23 Urine Nitrate Negative (Negative) 08/21/24 09:23 Urine Bilirubin Negative (Negative) 08/21/24 09:23 Urine Urobilinogen 0.2 mg/dL (Negative) 08/21/24 09:23 Ur Leukocyte Esterase Negative (Negative) 08/21/24 09:23 Urine RBC 3-5 /hpf (0-2) 08/21/24 09:23 Urine WBC 0-5 /hpf (0-5) 08/21/24 09:23 Ur Squamous Epith Cells 0-5 /hpf (0-5) 08/21/24 09:23 Amorphous Sediment Not Reportable 08/21/24 09:23 Urine Bacteria None seen /hpf (NONE) 08/21/24 09:23 Hyaline Casts 11.97 /lpf 08/21/24 09:23 [place] 0.8 mmol/L (0.6-1.2) 08/21/24 09:17 Serum Ketones Negative (Negative) 08/21/24 09:17 Influenza A (PCR) Negative (Negative) 08/21/24 09:19 Influenza Type B (PCR) Negative (Negative) 08/21/24 09:19 RSV (PCR) Negative (Negative) 08/21/24 09:19 SARS-CoV-2 (PCR) Negative (Negative) 08/21/24 09:19 All radiology interpretation(s) finalized by discharge Critical Care Time Critical Care Time: Critical Care Time: Yes Total Critical Care Time: 40 Attestation: The high probability of a clinically significant, sudden or life threatening deterioration of the patient's cardiovascular respiratory system(s) required my full and direct attention, intervention and personal management. The critical care time is as shown. This time is in addition to time spent performing any reported procedures but includes the following: [x] Data and vital sign review and interpretation [x] Patient assessment, examination and intervention [x] Documentation [x] Medication orders and management Discharge Plan Discharge Patient Disposition: Admitted As Inpatient Admit Provider: Garrison Sierra Clinical Impression: Acute and chronic respiratory failure with hypercapnia, Acute on chronic systolic CHF (congestive heart failure), NYHA class 4, Pneumonia, Acute on chronic hypoxic respiratory failure, Cardiac resynchronization therapy defibrillator (GEOGRAPHIC INFORMATION SYSTEMS ANALYST-D) in place Condition: Stable Coding Level of Care Code ED 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
[2024-08-21 08:57] LABS: Basophils # 0.1 10^3/uL (0.0-0.1); Basophils % 0.6 %; Hematocrit 43.6 % (37-53); Lymphocytes # 1.8 10^3/uL (0.8-4.8); Lymphocytes % 12.8 %; Mean Corpuscular HGB Conc 29.8 g/dL (30-55); Mean Corpuscular Hemoglobin 30.8 pg (27-33); Mean Corpuscular Volume 103.3 fl (82-101); Monocytes # 0.9 10^3/uL (0.2-0.9); Monocytes % 6.5 %; Neutrophils # 11.16 10^3/uL (1.8-7.7); Neutrophils % 79.4 %; Nucleated Red Blood Cells % 0 %; Platelet Count 314 10^3/cmm (157-399); Red Blood Count 4.22 10^6/uL (3.85-5.65); Red Cell Distribution Width 13.3 % (12.1-15.1); White Blood Count 14.05 10^3/uL (3.29-11.43)
[2024-08-21] MEDS: ketamine 100 mg/mL Inj 5 mL 200 MG IVP ×2 (09:00→12:41)
[2024-08-21] MEDS: ipratropium-albuterol 3 mL Neb INHALATION ×5 (09:02→20:08)
[2024-08-21 09:06] LABS: ABG PH Result 7.28 (7.35-7.45); Alveolar-Arterial Oxygen Gradi 36.1 mmHg (5-10); Arterial Blood Gas Hematocrit 38.3 % (42-52); Base Excess ABG 14.3 mmol/L (-2.0-2.0); Blood Gas Allen Test Pos; Blood Gas Operator Identificat CAK; Blood Gas Sample Site Radial, left; Blood Gas Sample Type Arterial; Carboxyhemoglobin 1.6 %THgb (0.4-20.1); HGB O2 Sat 97.8 % (95-100); Ionized Calcium Level - ABG 1.5 mmol/L (1.1-1.4); Oxygen Device VENT; Oxygen Saturation ABG > 99.1; PO2 FiO2 Ratio Arterial Blood 328; Potassium Level - ABG 4.6 mmol/L (3.5-5.0); Total Hemoglobin 12.5 g/dL (14-18)
[2024-08-21 09:14] LABS: Lactic Sepsis W/Reflex 0.9 mmol/L (0.5-2.2)
--- NOTE | 2024-08-21 09:14 | ECG_ITS ---
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 Measurements Intervals [place] Rate: 66 P: 0 [place]: 0 QRS: 256 QRSD: 193 T: 90 QT: 512 QTc: 539 Interpretive Statements ELECTRONIC VENTRICULAR PACEMAKER ABNORMAL RHYTHM ECG INTERPRETATION BASED ON A DEFAULT AGE OF 40 YEARS Compared to ECG 06/29/2024 09:59:12 No significant changes Electronically Signed On 08-21-2024 12:29:06 CDT by Narciso Frederick M.D. [email or web address]
[2024-08-21 09:19] LABS: Troponin(5th) Baseline 83 ng/L (0-15)
--- NOTE | 2024-08-21 09:35 | PC.PHAR ---
[facility] is [facility] 08/21/24 9:30am
[2024-08-21] MEDS: aspirin 81 mg Chew Tablet 324 MG OG-TUBE (09:36)
--- NOTE | 2024-08-21 09:39 | PC.NURSE ---
PATIENT INTUBATED AT 0845, TUBE 22 AT TEETH. WASTED 100 MG SUCC AND 200 MG PROPOFOL WITH DAYAN Mcmahan RN.
--- NOTE | 2024-08-21 09:43 | PC.NURSE ---
PATIENT INTUBATED AT 0845, TUBE 22 AT TEETH. WASTED 100 MG SUCC AND 150 MG PROPOFOL WITH DAYAN Mcmahan RN.
[2024-08-21] MEDS: propofol 10 mg/mL SDV 20 mL 50 MG IVP (09:45)
[2024-08-21 09:46] LABS: Ketone (Acetest) Serum Negative (Negative)
[2024-08-21 09:49] LABS: Bilirubin Urine Negative (Negative); Blood Urine 1+ (Negative); Glucose Urine UA Trace (Normal); Ketones Urine Negative (Negative); Leukocyte Esterase Urine Negative (Negative); Nitrate Urine Negative (Negative); Protein Urine 4+ (Negative); Specific Gravity, Urine 1.021 (1.005-1.030); Urine Appearance Clear (CLEAR); Urine Color Yellow (Yellow); Urobilinogen Urine 0.2 mg/dL (Negative); pH Urine 5.5 (5-7)
[2024-08-21 09:51] LABS: Add Urine Microscopic? YES; Bacteria Urine None Seen /hpf; Hyaline Casts Urine 11.97 /lpf; Squamous Epithelial Cell Urine 0-5 /hpf (0-5); WBC Urine 0-5 /hpf (0-5)
[2024-08-21 09:54] LABS: Troponin 5 2HR 83.25 ng/L (0-15); Troponin 5 2HR Delta 0.25 ABS# (0-10)
[2024-08-21 09:55] LABS: Lithium 0.8 mmol/L (0.6-1.2)
[2024-08-21 10:01] LABS: Alanine Aminotransferase 7 U/L (0-41); Albumin Level 4.1 g/dL (3.5-5.2); Alkaline Phosphatase 104 U/L (40-130); Aspartate Amino Transferase 13 U/L (0-40); Blood Urea Nitrogen 12 mg/dL (8-23); Calcium 11.1 mg/dL (8.5-10.5); Chloride 92 mmol/L (98-107); Creatine Phosphokinase 65 U/L (39-308); Creatinine Clr Calc Pharmacy 95.2925; Globulin 2.2 g/dL (1.3-4.6); Glomerular Filtration Rate 83.4 mL/min (90-130); Glucose 245 mg/dL (65-115); Lipase 13 U/L (13-60); Magnesium 1.8 mg/dL (1.7-2.3); NT Pro B Type Natriuretic Pept 3184 pg/mL (0-125); Osmolality Calculated 292 mOsm/kg (285-295); Sodium 137 mmol/L (136-145); Total Bilirubin 0.5 mg/dL (0.15-1.2); Total Protein 6.3 g/dL (6.6-8.7)
[2024-08-21] MEDS: methylPREDNISolone sod succ 125 mg/2 mL INJ IVP (10:11)
[2024-08-21] MEDS: piperacillin-tazobactam 3.375 GM in sodium chloride 0.9% (plus) 50 ML IV ×2 (10:16→17:47)
[2024-08-21 10:22] LABS: ABG PH Result 7.46 (7.35-7.45); Arterial Blood Gas Hematocrit 34.4 % (42-52); Base Excess ABG 17.6 mmol/L (-2.0-2.0); Blood Gas Sample Type Arterial; Carboxyhemoglobin 1.7 %THgb (0.4-20.1); HCO3 ABG 44.3 mmol/L (22-26); HGB O2 Sat 98.1 % (95-100); Ionized Calcium Level - ABG 1.4 mmol/L (1.1-1.4); Methemoglobin 0.3 % (0.4-1.5); Oxygen Saturation ABG > 99.1; Potassium Level - ABG 3.8 mmol/L (3.5-5.0); Total Hemoglobin 11.2 g/dL (14-18)
[2024-08-21 10:22] LABS: Carbon Dioxide 41 mmol/L (22-29)
[2024-08-21 10:23] LABS: Anion Gap 8.6 (5-19); Potassium 4.6 mmol/L (3.5-5.1)
[2024-08-21 10:25] LABS: UA Slide Review UA Slide Review Perf
[2024-08-21 10:25] LABS: Influenza A NEGATIVE (Negative); Influenza B NEGATIVE (Negative); Respiratory Syncytial Virus Ce NEGATIVE (Negative); SARS-CoV-2 PCR NEGATIVE (Negative)
[2024-08-21 10:25] LABS: ABG PCO2 62.4 mmHg (35-45); Alveolar-Arterial Oxygen Gradi 19.2 mmHg (5-10); Blood Gas Operator Identificat MONRO; Blood Gas Sample Site Brachial, right; Oxygen Device VENT; PO2 FiO2 Ratio Arterial Blood 272
--- NOTE | 2024-08-21 10:26 | ECG_ITS ---
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 Measurements Intervals [place] Rate: 60 P: 0 NM: 0 QRS: 263 QRSD: 212 T: 103 QT: 498 QTc: 498 Interpretive Statements ELECTRONIC VENTRICULAR PACEMAKER ABNORMAL RHYTHM ECG Compared to ECG 08/21/2024 09:14:32 No significant changes Electronically Signed On 08-21-2024 19:31:28 CDT by Narciso Frederick M.D. [email or web address]
[2024-08-21 10:27] LABS: Add Urine Culture? No
--- NOTE | 2024-08-21 10:28 | US_ITS ---
WS: [id number] Ultrasound chest, limited. HISTORY: Evaluate for effusion. Limited ultrasound of the LEFT chest demonstrates a moderate pleural effusion. No loculations are evident. US/US chest [id number] IMPRESSION: Moderate LEFT pleural effusion.
--- NOTE | 2024-08-21 10:30 | US_ITS ---
WS: [id number] ULTRASOUND-GUIDED THORACENTESIS, LEFT HISTORY: diagnostic, LLL Procedure, risks, and complications were explained to the patient. With the patient in an upright position, the skin over the LEFT posterior thorax was cleansed with ChloraPrep and anesthetized with 1% buffered lidocaine. A 5 Uzbek Yueh needle is inserted into the pleural fluid without complication. A pproximately 1000 cc of clear pleural fluid is removed without difficulty. / thoracentesis [id number] IMPRESSION: 1. LEFT thoracentesis yielding 1000 cc of fluid. 2. Chest radiograph to follow to evaluate for pneumothorax.
[2024-08-21] MEDS: DOBUTamine drip 500 MG/250 ML PREMIX 17.69 MG IV (10:58)
--- NOTE | 2024-08-21 11:15 | PC.PHAR ---
Addendum entered by Olive Acharya 08/21/24 11:43: Second updated list faxed and changes were made to pt chart. 08/21/24 Original Note: [facility]ts[facility] is [facility]. We also used pts' hospital and pharmacy med list.
--- NOTE | 2024-08-21 13:04 | PM.HP ---
Providers/Chief Complaint Admitting Physician: Garrison Sierra Primary Care Provider: Chanell Lee MD Chief Complaint: SOB, COPD, CHF History of Present Illness 68-year-old gentleman with history of chronic congestive heart failure with reduced ejection fraction, ischemic cardiomyopathy, status post PPM/ICD, chronic hypoxic respiratory failure, normally on 3 L nasal cannula, COPD, bipolar disorder recently hospitalized, discharged 07/03/2024 after acute on chronic hypoxic and hypercapnic respiratory failure, ischemic cardiomyopathy, CHF, acute encephalopathy, has not been feeling well over the last week, last night was feeling significantly worse, with tachypnea, generally weak, recently has been having progressive swelling in his legs, yesterday also having cough. He was initially reluctant coming to the hospital, as he said he would be kept for treatment , however, his family have found that his oxygen saturations were down into the 60s and 70s, and called EMS at which point he did not protest coming into the hospital. Upon arrival in ER he was found with altered mental status, lethargic, hypoxic, and respiratory failure, with acute on chronic hypoxic respiratory failure. Intubated in ER and placed on mechanical ventilatory support. Chest x-ray with finding of left lower lobe consolidation and increasing left pleural effusion since prior study. Cardiac enlargement unchanged. There is a suspicion of pneumonia in the left lung. Mr. Carney has a history of congestive heart failure with a low EF and a defibrillator in place. He is prone to fluid retention and exacerbation of heart failure. He has been experiencing fast breathing for about four days and has had trouble sleeping for a month, often sleeping only four hours a night upright in a chair. He started coughing last night and has been nauseous but has not vomited. He denies fever, chest pain, abdominal pain, diarrhea, or blood in the stool. He has been experiencing swelling in his legs, which has worsened, and he takes diuretics once a day. Review of Systems General: Reports: ROS unobtainable due to medical condition (Limited ROS obtained from his ) Const: Reports: malaise Card: Reports: edema and swelling of feet/ankles; Denies: chest pain Resp: Reports: dyspnea and productive cough GI: Reports: nausea; Denies: abdominal pain, vomiting, diarrhea, hematochezia or melena : Denies: difficulty urinating Medications/Allergies Home Medications ?Medication ?Instructions ?Recorded ?Confirmed ?Last Taken ?Type aspirin 81 mg tablet,delayed 81 mg PO DAILY #90 tabs 05/05/22 08/21/24 06/22/24 19:00 Rx release (Adult Low Dose Aspirin) gabapentin 300 mg capsule 900 mg PO BEDTIME 05/05/22 08/21/24 06/22/24 20:00 History lamotrigine 200 mg tablet 200 mg PO BEDTIME 05/05/22 08/21/24 06/22/24 20:00 History pantoprazole 40 mg tablet,delayed 40 mg PO QAM 05/05/22 08/21/24 06/23/24 08:00 History release guaifenesin 600 mg tablet, 600 mg PO BID 05/21/24 08/21/24 05/21/24 History extended release 12 hr (Mucinex) methocarbamol 500 mg tablet 500 mg PO Q12H PRN muscle spasms 05/21/24 08/21/24 Unknown History mecobalamin (vitamin B12) 1,000 1,000 mcg PO DAILY 06/18/24 08/21/24 08/21/24 History mcg chewable tablet melatonin 10 mg capsule 10 mg PO DAILY 06/18/24 08/21/24 06/22/24 20:00 History acetaminophen 500 mg tablet 1,000 mg PO Q6H PRN Fever Or Pain 06/24/24 08/21/24 Unknown History (Tylenol Extra Strength) mirtazapine 30 mg tablet 30 mg PO BEDTIME 06/24/24 08/21/24 06/22/24 20:00 History quetiapine 100 mg tablet 100 mg PO BEDTIME PRN DEPRESSION 06/24/24 08/21/24 Unknown History sacubitril 24 mg-valsartan 26 mg 1 tab PO BID 06/24/24 08/21/24 06/23/24 07:00 History tablet (Entresto) furosemide 40 mg tablet 40 mg PO DAILY 30 days #30 tabs 07/03/24 08/21/24 06/23/24 Rx albuterol sulfate 90 mcg/actuation 2 puff inhalation QID PRN copd 08/21/24 08/21/24 Unknown History aerosol inhaler atorvastatin 80 mg tablet 80 mg PO QPM 08/21/24 08/21/24 Unknown History carvedilol 6.25 mg tablet 3.125 mg PO BID 08/21/24 08/21/24 Unknown History chlorthalidone 25 mg tablet 25 mg PO DAILY 08/21/24 08/21/24 Unknown History cholecalciferol (vitamin D3) 50 50 mcg PO DAILY 08/21/24 08/21/24 Unknown History mcg (2,000 unit) tablet (Vitamin D3) cyanocobalamin (vitamin B-12) 1,000 mcg PO DAILY 08/21/24 08/21/24 Unknown History 1,000 mcg tablet fluticasone 250 mcg-salmeterol 50 1 inh inhalation BID 08/21/24 08/21/24 Unknown History mcg/dose blistr powdr for inhalation (Advair Diskus) lisinopril 10 mg tablet 10 mg PO DAILY 08/21/24 08/21/24 Unknown History lithium carbonate 300 mg capsule 300 mg PO BID 08/21/24 08/21/24 Unknown History metformin 500 mg tablet,extended 500 mg PO DAILY 08/21/24 08/21/24 Unknown History release 24 hr montelukast 10 mg tablet 10 mg PO QPM 08/21/24 08/21/24 Unknown History (Singulair) potassium chloride 10 mEq 10 meq PO DAILY 08/21/24 08/21/24 Unknown History tablet,extended release(part/cryst) tiotropium 2.5 mcg-olodaterol 2.5 2 inh inhalation DAILY 08/21/24 08/21/24 Unknown History mcg/actuation mist for inhalation (Stiolto Respimat) Allergies Allergy/AdvReac Type Severity Reaction Status Date / Time No Known Allergies Allergy Verified 07/08/24 15:01 PFSH Acute PFSH: Medical History Osteoporosis without pathological fracture Bipolar disorder, unspecified Benign prostatic hyperplasia without lower urinary tract symptoms Gastritis, unspecified, without bleeding Gastrointestinal stromal tumor of stomach Low back pain, unspecified Umbilical hernia without obstruction or gangrene Hyperparathyroidism s/p parathyroid tumor removal Depression Bipolar 1 disorder Gastrointestinal stromal tumor s/p surgery in 2019 in [place]. No chemo or radiation needed. Hypertension Ischemic cardiomyopathy CAD (coronary artery disease) s/p 1 stent in 2015 Cardiac resynchronization therapy defibrillator ([employer]-D) in place Hyperlipidemia, unspecified Surgical History History of lumbar laminectomy in 2014 in [place] Abdominal aortic aneurysm (AAA) without rupture s/p surgery in 2018 or 2019 in [place] Family History Father Heart attack Social History Smoking and tobacco/nicotine status: former use of tobacco/nicotine (2022) Alcohol intake: never Substance/Drug Use: current Vitals/I&O/Wt Last Vital Signs Temp 98.0 F 08/21/24 08:45 Pulse 60 08/21/24 13:01 Resp 14 08/21/24 12:30 BP 109/60 08/21/24 13:01 Pulse Ox 98 08/21/24 13:01 O2 Del Method Mechanical Ventilation 08/21/24 12:54 O2 Flow Rate 15 08/21/24 08:45 FiO2 35 08/21/24 11:23 08/20/24 08/21/24 08/21/24 22:59 06:59 14:59 Intake Total 86.550 / 86.550 Balance 86.550 / 86.550 Weight last 48 hrs Weight 102 kg Weight 117.934 kg Physical Exam Narrative: Accompanied by his . HENMT: COMMON NORMALS: oropharynx normal Neck/C-Spine: COMMON NORMALS: no JVD Resp: COMMON NORMALS: normal respiratory effort and clear to auscultation bilaterally AUSCULTATION: crackles Laterality: left (lower) and diminished lung sounds on the left in the lower lung aguayo Cardio: COMMON NORMALS: no JVD, regular rhythm, S1 normal heart sound present, S2 normal heart sound present and No murmurs present (Cardio) RHYTHM: regular rhythm HEART SOUNDS: S1 normal heart sound present and S2 normal heart sound present GI: COMMON NORMALS: Normal to inspection, nondistended, normoactive bowel sounds present, Soft to palpation and non-tender PALPATION: Yes Soft to palpation Extremity: COMMON NORMALS: no joint enlargement GENERAL: Yes edema Urinary Catheter Management: Cunningham: Cath Placed During This Visit: yes Urinary Catheter Date of Insertion: 08/21/24 Urinary Catheter Time of Insertion: 09:46 Data 08/21/24 07:40 08/21/24 09:17 Micro: Microbiology 08/21/24 08:05 Gram Stain - Final Sputum - Endotracheal Tube Aspirate 08/21/24 09:22 Blood Culture - Preliminary Blood SPECIMEN COLLECTED 08/21/24 09:17 Blood Culture - Preliminary Blood SPECIMEN COLLECTED A&P Assessment and plan (1) Acute on chronic hypoxic respiratory failure: Acute on chronic hypoxic respiratory failure, with hypoxemia on ABG, hypoxia on saturation down to 60s to 70s found at home by his family on pulse oximetry. Initially reluctant to come to hospital, but not objective subsequently, condition progressively deteriorating, require intubation mechanical ventilation to be started in ER. Suspected secondary to underlying pneumonia superimposed also on acute systolic congestive heart failure with progressive decompensation, as well as underlying COPD. Normally on 3 L of nasal cannula oxygen. Reviewed vitals, CBC,, CMP, lactic acid, baseline interval troponin, NT proBNP, UA, influenza, RSV, COVID PCR, chest x-ray, ER provider note, discussed with ER provider. Received Zosyn on presentation. Will broaden with Linezolid for now with possible hospital-acquired pneumonia. Obtain MRSA PCR. Obtain sputum culture. Continue mechanical ventilatory sedation. Weaning trial in the morning, wean sedation reassessment of status, breathing trial. For now sedation with fentanyl, was started on Versed as well, although currently maintaining blood pressure better. Systolic blood pressure 115, will stop Versed, give trial of propofol as hopefully he will not stay on the ventilator for too long. However, as discussed with nursing staff in case becoming hypotensive with propofol may have to stop propofol and go back to Versed. (2) Pneumonia: Left lower lobe consolidation on chest x-ray. With pleural effusion, assess for possible parapneumonic effusion, although does have full effusions on prior CT. With presentation with respiratory failure, leukocytosis, hypotension, assess for possible empyema, discussed with patient's , ER provider, radiology. Requested chest ultrasound, diagnostic thoracentesis. Requested lab work including body fluid analysis, Gram stain culture, pH, LDH, albumin. Follow-up. Antibiotic treatment as above for pneumonia. Check MRSA PCR with recent hospitalization with possible hospital-acquired pneumonia. (3) Acute on chronic systolic CHF (congestive heart failure), NYHA class 4: Acute systolic congestive heart failure with respiratory failure, lower extremity edema, underlying low ejection fraction, 25-30%. Status post AICD. Has been getting progressively dyspneic at home, unable to sleep at night, and sleep in the chair, able to sleep only for few hours. Does not have a CPAP at. Has not missed any of his diuretic doses at home. Transition to IV diuretics for now. Monitor intake and output, monitor for risk of electrolyte deficiency, renal dysfunction, ROCKY. Reassess chemistry. Replace hypomagnesemia. Complete troponin EKG series. Monitor telemetry. Plan Acute metabolic encephalopathy with hypoxic respiratory failure on presentation with hypoxemia on presentation. Reviewed lithium level. Hypomagnesemia: Replace, recheck magnesium level. Chronic respiratory failure: Chronically on 3 L nasal cannula oxygen, with underlying congestive heart failure, COPD. COPD: Will give IV Solu-Medrol currently, monitor for risk of hyperglycemia, hypertension, encephalopathy with IV steroid. Antibiotic coverage as above. Anxiety: Consider benzodiazepine as needed for anxiety/air hunger. History of gastritis: PPI CAD: Continue aspirin, statin, hold beta-carol for now due to hypotension PDMP PDMP Reviewed: Not Reviewed Attestations Medical Necessity Statement*: Admission over 2 midnights anticipated for assessment management of acute on chronic respiratory failure with hypoxia, pneumonia, assessment of possible complicated pneumonia, acute systolic congestive heart failure, and a gentleman with underlying heart failure with low ejection fraction, COPD, additional colitides as above. Coding Level of Care Code Critical Care >/= 30 minutes Critical care time (in minutes): 50 The high probability of a clinically significant, sudden or life threatening deterioration, as referenced in this documentation, required my full and direct attention, intervention and personal management. The critical care time shown is in addition to time spent performing any reported separately billable procedures and includes the following: [x] Data and vital sign review and interpretation [x] Patient assessment, examination and intervention [x] Medication orders and management [x] Patient/Family updates as able [x] Care Coordination and Documentation. Diagnoses Acute on chronic hypoxic respiratory failure J96.21 Pneumonia J18.9 Acute on chronic systolic CHF (congestive heart failure), NYHA class 4 I50.23
--- NOTE | 2024-08-21 13:24 | XR_ITS ---
WS: [id number] Exam: XR chest 1V portable [id number] Date/Time of Exam: 08/21/2024 1:24 PM Reason For Exam: Post PICC insertion Comparison the previous exam performed on the same day at 9:03 a.m. A right-sided PICC line has been placed and ends in the lower one third of the SVC. The heart remains enlarged. Again noted is prominent left-sided pleural effusion. ET tube remains in good position. NG tube extends below the diaphragm but the tip is not visible. Left-sided cardiac pacer again noted. The RIGHT lung is clear and fully expanded. XR/XR chest 1V portable [id number] IMPRESSION: 1. Right-sided PICC line appearing to end in the lower one third of the SVC. 2. Cardiac enlargement, prominent LEFT basal pleural effusion. 3. ET tube remaining in satisfactory location. Enteric tube extending below the diaphragm but the tip is not visible.
--- NOTE | 2024-08-21 13:55 | PICC.NOTE ---
Triple lumen PICC placed to right basilic vein. Referred to vascular access nurse for PICC placement due to dobutamine gtt. Risks and benefits discussed and informed consent obtained from pt , Ch[place]. Right arm assessed with right basilic vein measuring 4.1 mm, straight, and apparent best choice for placement. Using sterile technique and MST, right basilic vein accessed x 1 stick. Mid-arm circumference measured 10 cm from right AC 31 cm. Trimmed cath 42 cm with 0 cm external length noted. CXR shows tip in distal SVC, in good position for use per radiologist. Line secured with stat-lock. Insertion site covered with Biopatch and TSM. Report given to bedside nurse, VAISHALI Winter.
[2024-08-21] MEDS: pantoprazole 40 mg SDV IVP (14:14)
[2024-08-21] MEDS: enoxaparin 40 mg/0.4 mL Syringe SUBCUT (14:14)
--- NOTE | 2024-08-21 14:20 | PC.NURSE ---
Dr. Perdue at bedside to perform left thoracentesis. Time out performed. VSS. Approx 1000 mL clear shadi fluid removed. Thora fluid sent to lab. Bandaid applied to left flank following procedure. Pt tolerated well.
--- NOTE | 2024-08-21 14:33 | XR_ITS ---
WS: [id number] PORTABLE CHEST HISTORY: Post thoracentesis, LEFT COMPARISON: 08/21/2024 Endotracheal tube and nasogastric tubes are identified. Patient has a right- sided PICC line in good position. LEFT subclavian pacer/defibrillator. No pneumothorax status post LEFT thoracentesis. Much better aeration of the LEFT lung. No pleural effusion or pneumothorax. Cardiac size: Mildly enlarged cardiac silhouette. Mediastinum/Aorta: Mild widening the mediastinum due to ectasia of the aorta. No osseous abnormality seen. XR/XR chest 1V portable [id number] IMPRESSION: 1. No pneumothorax status post LEFT thoracentesis.
--- NOTE | 2024-08-21 14:38 | PC.NURSE ---
Patient arrived to ICU 11 at 1242. Patient belongings sent with as his clothing had been cut in ED. Patient on a vent.
--- NOTE | 2024-08-21 14:48 | ECG_ITS ---
[employer] Test Date: 2024-08-21 Pat Name: Jim Carney Department: Room: ICU11 Gender: Male Client Business Manager: : 1955 Requested By: Dawson Ling Order Number: [id number] Estelita MD: Narciso Frederick M.D. Measurements Intervals [place] Rate: 60 P: 0 LA: 0 QRS: 206 QRSD: 189 T: 62 QT: 496 QTc: 496 Interpretive Statements ELECTRONIC VENTRICULAR PACEMAKER ABNORMAL RHYTHM ECG Compared to ECG 08/21/2024 10:26:13 No significant changes Electronically Signed On 08-21-2024 19:29:11 CDT by Narciso Frederick M.D. [email or web address]
[2024-08-21 14:52] LABS: Troponin 5 6HR 110.2 ng/L (0-15); Troponin 5 6HR Delta 27.2 ng/L (0-12)
[2024-08-21 15:11] LABS: Body Fluid Polynuclear #Cells 0.034; Body Fluid WBC 464 /uL
[2024-08-21 15:14] LABS: Apprearance, Body Fluid CLOUDY; Color, Body Fluid PALE YELLOW; Cyto Order Verification Order Verified
[2024-08-21 15:15] LABS: Fluid Laterality LEFT PLEURAL FLUID; PATH Referral YES
[2024-08-21] MEDS: fentaNYL 1,000 MCG/100 ML BAG 15 MCG IV (15:31)
[2024-08-21] MEDS: propofol 1,000 MG/100 ML INJ 3.06 MG IV (15:38)
[2024-08-21 15:48] LABS: Albumin Body Fluid 2.1 g/dL; LDH Body Fluid 188 U/L; Total Protein Pleural Fluid 2.8 g/dL
[2024-08-21] MEDS: methylPREDNISolone sod succ 40 mg/mL INJ 30 MG IVP ×2 (15:48→23:46)
[2024-08-21] MEDS: magnesium sulfate premix 1 GM/100 ML PIGGYBACK IV (15:49)
[2024-08-21] MEDS: linezolid premix 600 MG/300 ML PREMIX 300 MG IV (15:50)
--- NOTE | 2024-08-21 18:30 | PC.NURSE ---
During thoracentesis patient became vent non complaint due to positioning, received verbal order from Dr. Perdue for 2mg Versed.
[2024-08-21 20:11] LABS: Glucose Point of Care 253 mg/dL (70-110)
--- NOTE | 2024-08-21 20:15 | PC.NURSE ---
Insulin/D-Dimer Upon assessment, patient's right leg more edematous than left leg. Additionally, patient's glucose level 253. Dr. Hobbs contacted; orders received to check a d-dimer and to start medium sliding scale insulin Q6H subq.
[2024-08-21] MEDS: insulin lispro 100 unit/1 mL SUBCUT (20:34)
[2024-08-21 21:36] LABS: D Dimer 1.81 ug/mLFEU (0-0.59)
[2024-08-21] MEDS: fentaNYL 1,000 MCG/100 ML BAG 17.5 MCG IV (21:59)
[2024-08-21 22:36] LABS: MRSA PCR OZH (swab) NOT DETECTED (Negative)
[2024-08-21] MEDS: DOBUTamine drip 500 MG/250 ML PREMIX 53.07 MG IV (22:43)
--- NOTE | 2024-08-21 23:00 | PC.NURSE ---
Versed Patient's blood pressure staying low, propofol titrated down. As propofol administration decreases, patient becomes restless and agitated. Dr. Hobbs contacted; order received for versed.
[2024-08-22] VITALS (105 sets, daily range): BP systolic 80–152; BP diastolic 43–81; PULSE 60–115; RESP 14–21; TEMP 36.7–37.4; O2SAT 87–98
--- NOTE | 2024-08-22 00:18 | USCV_ITS ---
Jim Carney Age: 68 Gender: M : 1955 Exam Date: 08/22/2024 00:46 Ordering Phys: Remington Hobbs MD Technologist: MICAH Exam Location: [facility] [place] Indication: leg edema Patient is on ventilator in ICU-11 HISTORY: leg edema Patient is on ventilator in ICU-11 PROCEDURES: Venous duplex imaging was performed in only the right lower extremity. The following venous structures were evaluated: common femoral vein, profunda vein, proximal portion of the greater saphenous vein, superficial femoral vein, and the popliteal vein. In addition, the posterior tibial veins were evaluated. Serial compression, augmentation maneuvers, and spectral Doppler flow evaluation were performed, which were normal. CONCLUSIONS No evidence of right lower extremity DVT. Km Marie MD (Electronically Signed) Final Date: 22 August 2024 10:22 Amended: 23 August 2024 14:53 C
--- NOTE | 2024-08-22 00:20 | PC.NURSE ---
Venous Doppler Dr. Hobbs notified of elevated d-dimer and larger right leg than left. Order received for venous doppler scan.
[2024-08-22] MEDS: ipratropium-albuterol 3 mL Neb INHALATION ×6 (00:52→20:43)
[2024-08-22] MEDS: pantoprazole 40 mg SDV IVP ×2 (01:37→13:32)
[2024-08-22] MEDS: piperacillin-tazobactam 3.375 GM in sodium chloride 0.9% (plus) 50 ML IV ×3 (01:37→17:16)
[2024-08-22] MEDS: DOBUTamine drip 500 MG/250 ML PREMIX 70.76 MG IV ×3 (02:23→10:08)
[2024-08-22] MEDS: insulin lispro 100 unit/1 mL SUBCUT ×3 (02:31→21:26)
[2024-08-22] MEDS: linezolid premix 600 MG/300 ML PREMIX 300 MG IV ×2 (02:32→15:14)
--- NOTE | 2024-08-22 03:00 | PC.NURSE ---
Levophed Patient's blood pressure remaining low despite decreased titrations of sedation and dobutamine remaining at maximum infusion rate. Dr. Hobbs notified; order received for levophed drip.
[2024-08-22] MEDS: norepinephrine 4 MG/250 ML BAG 7.5 MG IV (03:03)
[2024-08-22 03:50] LABS: Basophils % 0.2 %; Hematocrit 33.4 % (37-53); Lymphocytes # 0.5 10^3/uL (0.8-4.8); Lymphocytes % 4.5 %; Mean Corpuscular HGB Conc 30.8 g/dL (30-55); Mean Corpuscular Hemoglobin 30.9 pg (27-33); Mean Corpuscular Volume 100.3 fl (82-101); Mean Platelet Volume 11.7 fL (7.4-10.4); Monocytes # 0.4 10^3/uL (0.2-0.9); Monocytes % 3.9 %; Neutrophils # 9.89 10^3/uL (1.8-7.7); Neutrophils % 90.9 %; Nucleated Red Blood Cells % 0 %; Platelet Count 168 10^3/cmm (157-399); Red Blood Count 3.33 10^6/uL (3.85-5.65); Red Cell Distribution Width 12.9 % (12.1-15.1); White Blood Count 10.87 10^3/uL (3.29-11.43)
[2024-08-22 04:16] LABS: Alanine Aminotransferase 6 U/L (0-41); Albumin Level 3.4 g/dL (3.5-5.2); Alkaline Phosphatase 78 U/L (40-130); Aspartate Amino Transferase 15 U/L (0-40); Blood Urea Nitrogen 22 mg/dL (8-23); Calcium 10.7 mg/dL (8.5-10.5); Carbon Dioxide 37 mmol/L (22-29); Chloride 90 mmol/L (98-107); Creatinine Clr Calc Pharmacy 46.0147; Glucose 237 mg/dL (65-115); Osmolality Calculated 293 mOsm/kg (285-295); Sodium 136 mmol/L (136-145); Total Bilirubin 0.9 mg/dL (0.15-1.2); Total Protein 5.4 g/dL (6.6-8.7)
[2024-08-22 04:17] LABS: Magnesium 1.9 mg/dL (1.7-2.3)
[2024-08-22] MEDS: fentaNYL 1,000 MCG/100 ML BAG 10 MCG IV (05:00)
[2024-08-22] MEDS: FUROsemide 10 mg/mL SDV 4mL 40 MG IVP ×2 (05:40→17:15)
[2024-08-22 08:03] LABS: Glucose Point of Care 203 mg/dL (70-110)
--- NOTE | 2024-08-22 10:01 | PM.PN ---
Subjective Subjective: Intubated, sedated, overnight restless. Hypotensive, had to be switched off of propofol, Levophed to be started. Vitals/I&O/Wt Last Vital Signs Temp 99.4 F 08/22/24 04:45 Pulse 63 08/22/24 07:59 Resp 14 08/22/24 09:58 BP 122/57 08/22/24 07:30 Pulse Ox 96 08/22/24 09:58 O2 Del Method Mechanical Ventilation 08/22/24 07:41 O2 Flow Rate 15 08/21/24 08:45 FiO2 35 08/22/24 09:58 08/21/24 08/22/24 08/22/24 22:59 06:59 14:59 Intake Total 929.778 / 1016.328 687.523 / 1703.851 Output Total 300 / 1300 Balance 929.778 / 16.328 387.523 / 403.851 Weight last 48 hrs Weight 103 kg Weight 102 kg Weight 117.934 kg Physical Exam Const: GENERAL APPEARANCE: patient mechanically ventilated HENMT: COMMON NORMALS: oropharynx normal Neck/C-Spine: COMMON NORMALS: no JVD Resp: COMMON NORMALS: normal respiratory effort and clear to auscultation bilaterally AUSCULTATION: clear to auscultation bilaterally, crackles Laterality: left (lower) and diminished lung sounds on the left in the lower lung aguayo Cardio: COMMON NORMALS: no JVD, regular rhythm, S1 normal heart sound present, S2 normal heart sound present and No murmurs present (Cardio) RHYTHM: regular rhythm HEART SOUNDS: S1 normal heart sound present and S2 normal heart sound present GI: COMMON NORMALS: Normal to inspection, nondistended, normoactive bowel sounds present, Soft to palpation and non-tender PALPATION: Yes Soft to palpation Extremity: COMMON NORMALS: no joint enlargement GENERAL: Yes edema (2+ BLLE) Urinary Catheter Management: Cunningham: Cath Placed During This Visit: yes Reason for Continuing Indwelling Catheter: Accurate Measurement of Urinary Output in Critically Ill Patients Urinary Catheter Date of Insertion: 08/21/24 Urinary Catheter Time of Insertion: 09:46 Data 08/22/24 03:00 08/22/24 03:00 Micro: Microbiology 08/21/24 09:22 Blood Culture - Preliminary Blood NEGATIVE TO DATE 08/21/24 09:17 Blood Culture - Preliminary Blood NEGATIVE TO DATE 08/21/24 08:05 Gram Stain - Final Sputum - Endotracheal Tube Aspirate A&P Assessment and plan (1) Acute on chronic hypoxic respiratory failure: Overnight restless, hypotensive, to be switched off of propofol, Versed had to be started. Levophed had to be started. Continues with mechanical ventilatory support. Continue sedation. Acute on chronic hypoxic respiratory failure, with hypoxemia on ABG, hypoxia on saturation down to 60s to 70s found at home by his family on pulse oximetry. Initially reluctant to come to hospital, but not objective subsequently, condition progressively deteriorating, require intubation mechanical ventilation to be started in ER. Suspected secondary to underlying pneumonia superimposed also on acute systolic congestive heart failure with progressive decompensation, as well as underlying COPD. Normally on 3 L of nasal cannula oxygen. Reviewed vitals, CBC,, CMP, lactic acid, baseline interval troponin, NT proBNP, UA, influenza, RSV, COVID PCR, chest x-ray, ER provider note, discussed with ER provider. Received Zosyn on presentation. Will broaden with Linezolid for now with possible hospital-acquired pneumonia. Obtain MRSA PCR. Obtain sputum culture. Continue mechanical ventilatory support and sedation. Reviewed ventilator settings. Chest x-ray. Weaning trial in the morning, wean sedation reassessment of status, breathing trial. For now sedation with fentanyl, was started on Versed as well, although currently maintaining blood pressure better. Systolic blood pressure 115, will stop Versed, give trial of propofol as hopefully he will not stay on the ventilator for too long. However, as discussed with nursing staff in case becoming hypotensive with propofol may have to stop propofol and go back to Versed. (2) Pneumonia: With parapneumonic effusion, reviewed pleural studies, pH is 7.2, LDH is below 200, cloudy solution. Try to reach his on the phone but could not get in touch with her to discuss possible empyema. Without appearance of empyema, additionally requested glucose analysis. He does appear to have had mostly drained with 1 L drained by thoracentesis yesterday. Pleural fluid glucose 220. Overall not suggestive of empyema although it is a complicated pneumonia with parapneumonic effusion. Continue IV antibiotic treatment. Consider reassessment of imaging in 1-2 days or sooner in case of worsening condition. Continue hemodynamic support. Very restless overnight, required additional sedation. Will reassess in the morning with breathing trial. Discussed with nursing, respiratory therapist. Discussed with human services case manager. Left lower lobe consolidation on chest x-ray. With pleural effusion, assess for possible parapneumonic effusion, although does have full effusions on prior CT. With presentation with respiratory failure, leukocytosis, hypotension, assess for possible empyema, discussed with patient's , ER provider, radiology. Requested chest ultrasound, diagnostic thoracentesis. Requested lab work including body fluid analysis, Gram stain culture, pH, LDH, albumin. Follow-up. Antibiotic treatment as above for pneumonia. Check MRSA PCR with recent hospitalization with possible hospital-acquired pneumonia. (3) Acute on chronic systolic CHF (congestive heart failure), NYHA class 4: Noted worsening renal function with ROCKY, creatinine 1.7. Did have some hypotension overnight. Will give diuretic challenge, reassess renal function. Reassess electrolytes. Monitor oxygenation. Acute systolic congestive heart failure with respiratory failure, lower extremity edema, underlying low ejection fraction, 25-30%. Status post AICD. Has been getting progressively dyspneic at home, unable to sleep at night, and sleep in the chair, able to sleep only for few hours. Does not have a CPAP at. Has not missed any of his diuretic doses at home. Transition to IV diuretics for now. Monitor intake and output, monitor for risk of electrolyte deficiency, renal dysfunction, ROCKY. Reassess chemistry. Replace hypomagnesemia. Complete troponin EKG series. Monitor telemetry. Plan ROCKY: BUN 22, creatinine noted up to 1.7. Will obtain kidney ultrasound. Obtain urine urea, creatinine. Elevated D-dimer: Mildly elevated 1.81. Venous duplex reviewed, negative for DVT. May be secondary to ROCKY, creatinine noted with rise up to 1.7. Not tachycardic, although has been also maintained off of beta-carol, may become tachycardic in case of withdrawal. Maintaining oxygenation on minimal ventilator settings. Acute metabolic encephalopathy with hypoxic respiratory failure on presentation with hypoxemia on presentation. Reviewed lithium level. Hypomagnesemia: Replace, recheck magnesium level. Chronic respiratory failure: Chronically on 3 L nasal cannula oxygen, with underlying congestive heart failure, COPD. COPD: Will give IV Solu-Medrol currently, monitor for risk of hyperglycemia, hypertension, encephalopathy with IV steroid. Antibiotic coverage as above. Anxiety: Consider benzodiazepine as needed for anxiety/air hunger. History of gastritis: PPI CAD: Continue aspirin, statin, hold beta-carol for now due to hypotension PDMP PDMP Reviewed: Not Reviewed Attestations Medical Necessity Statement*: Continue admission for assessment management of acute on chronic hypoxic respiratory failure, complicated pneumonia, decompensated congestive heart failure, ROCKY Coding Level of Care Code Critical Care >/= 30 minutes Critical care time (in minutes): 45 The high probability of a clinically significant, sudden or life threatening deterioration, as referenced in this documentation, required my full and direct attention, intervention and personal management. The critical care time shown is in addition to time spent performing any reported separately billable procedures and includes the following: [x] Data and vital sign review and interpretation [x] Patient assessment, examination and intervention [x] Medication orders and management [x] Patient/Family updates as able [x] Care Coordination and Documentation. Diagnoses Acute on chronic hypoxic respiratory failure J96.21 Pneumonia J18.9 Acute on chronic systolic CHF (congestive heart failure), NYHA class 4 I50.23
[2024-08-22] MEDS: methylPREDNISolone sod succ 40 mg/mL INJ 30 MG IVP ×2 (10:21→15:14)
--- NOTE | 2024-08-22 10:40 | PC.NURSE ---
Pt sat straight up in bed attempting to grab ETT with left had. Medical restraints retied. Pt reassured about his saftey and please relax. Fentanyl and versed gtt increased for his comfort.
[2024-08-22] MEDS: fentaNYL 2,500 MCG/250 ML BAG 15 MCG IV (11:18)
[2024-08-22] MEDS: midazolam hcl 100 MG/100 ML BAG IV (11:20)
[2024-08-22 12:43] LABS: Glucose Point of Care 241 mg/dL (70-110)
[2024-08-22 12:43] LABS: Glucose Point of Care 259 mg/dL (70-110)
[2024-08-22 12:51] LABS: Glucose Point of Care 237 mg/dL (70-110)
[2024-08-22] MEDS: enoxaparin 40 mg/0.4 mL Syringe SUBCUT (13:51)
[2024-08-22] MEDS: DOBUTamine drip 500 MG/250 ML PREMIX 53.07 MG IV (13:56)
[2024-08-22] MEDS: norepinephrine 4 MG/250 ML BAG 22.5 MG IV (15:14)
--- NOTE | 2024-08-22 15:40 | US_ITS ---
WS: [id number] RENAL ULTRASOUND HISTORY: ROCKY, assess for obstructive uropathy COMPARISON: 06/29/2024 TECHNIQUE: 2-D and color Doppler imaging of the kidney submitted. Right kidney: 10.4 cm x 5.1 cm x 5.1 cm. Cortex: 1.2 cm Normal size kidney with no hydronephrosis. Cortical cyst mid kidney measures 1.9 x 1.7 x 1.8 cm. Left kidney: 11.2 cm x 5.1 cm x 5.2 cm. Cortex: 1.4 cm Normal size kidney with normal echogenicity. No mass. Aorta: Normal. Urinary Bladder: Cunningham catheter present in a nondistended urinary bladder. US/US renal BI* [id number] IMPRESSION: 1. No interval change renal ultrasound since 06/29/2024. 2. No hydronephrosis. 3. RIGHT renal cyst.
[2024-08-22 18:30] LABS: Urine Creatinine 61 mg/dL (39-259)
--- NOTE | 2024-08-22 19:20 | PC.NURSE ---
Shift summary: Pt remains intubated and sedated. Attempted to wean sedation this am, pt starting /trembling bouncing in the bed with agitation. Pt unable to respond command appropriately. Sedation restarted/increased. Versed at 4 mg/Hr and Fentanyl at 150mcg/hr. Dobutamine gtt decreased from 20 to 10 mcg/kg/min and and Levophed from 6 to 5mcg/min this shift. No changes in vent settings, he remains on FIO2 at 35% with a peep of 8. V paced rhythm noted on monitor. Afebrile. Urine output of 500ml this sift. NO Bm noted. provided updates via phone and in evening when she was at bedside.
[2024-08-22] MEDS: DOBUTamine drip 500 MG/250 ML PREMIX 35.38 MG IV (19:41)
[2024-08-22 19:49] LABS: Urea Nitrogen,Urine Random 267 mg/dL
[2024-08-22] MEDS: dexmedeTOMIDine 0.9 % NaCL 400 MCG/100 ML PREMIX IV (20:55)
--- NOTE | 2024-08-22 21:00 | PC.NURSE ---
Precedex Patient very anxious, arms and legs noted to be shaking while patient attempting to reach ET tube. Dr. Hobbs contacted; order received for precedex drip.
[2024-08-22 21:38] LABS: Glucose Point of Care 211 mg/dL (70-110)
[2024-08-23] VITALS (99 sets, daily range): BP systolic 103–176; BP diastolic 66–137; PULSE 60–102; RESP 1–29; TEMP 36.2–37; O2SAT 87–100
[2024-08-23] MEDS: methylPREDNISolone sod succ 40 mg/mL INJ 30 MG IVP ×4 (00:03→23:10)
[2024-08-23] MEDS: piperacillin-tazobactam 3.375 GM in sodium chloride 0.9% (plus) 50 ML IV ×3 (00:59→17:15)
[2024-08-23] MEDS: pantoprazole 40 mg SDV IVP ×2 (00:59→13:32)
[2024-08-23] MEDS: ipratropium-albuterol 3 mL Neb INHALATION ×7 (01:08→23:13)
[2024-08-23] MEDS: chlorhexidine gluconate 4% Btl 118 mL 1 APPLIC TOPICAL (01:49)
[2024-08-23] MEDS: fentaNYL 2,500 MCG/250 ML BAG 20 MCG IV (01:52)
[2024-08-23 02:42] LABS: Glucose Point of Care 178 mg/dL (70-110)
[2024-08-23] MEDS: insulin lispro 100 unit/1 mL SUBCUT ×4 (02:45→20:48)
[2024-08-23] MEDS: linezolid premix 600 MG/300 ML PREMIX 300 MG IV ×2 (03:00→15:26)
[2024-08-23] MEDS: FUROsemide 10 mg/mL SDV 4mL 40 MG IVP ×2 (03:22→15:28)
[2024-08-23] MEDS: dexmedeTOMIDine 0.9 % NaCL 400 MCG/100 ML PREMIX 10.3 MCG IV (03:52)
[2024-08-23 03:59] LABS: Basophils % 0.1 %; Lymphocytes # 0.4 10^3/uL (0.8-4.8); Lymphocytes % 3.5 %; Mean Corpuscular HGB Conc 31.8 g/dL (30-55); Mean Corpuscular Hemoglobin 31.5 pg (27-33); Mean Corpuscular Volume 99.1 fl (82-101); Mean Platelet Volume 10.9 fL (7.4-10.4); Monocytes # 0.5 10^3/uL (0.2-0.9); Monocytes % 4.5 %; Neutrophils # 9.74 10^3/uL (1.8-7.7); Neutrophils % 91.5 %; Nucleated Red Blood Cells % 0 %; Platelet Count 151 10^3/cmm (157-399); Red Blood Count 3.43 10^6/uL (3.85-5.65); Red Cell Distribution Width 13.2 % (12.1-15.1); White Blood Count 10.64 10^3/uL (3.29-11.43)
[2024-08-23 04:22] LABS: Alanine Aminotransferase < 5 U/L (0-41); Albumin Level 3.5 g/dL (3.5-5.2); Alkaline Phosphatase 69 U/L (40-130); Anion Gap 12.6 (5-19); Aspartate Amino Transferase 10 U/L (0-40); Blood Urea Nitrogen 28 mg/dL (8-23); Calcium 10.5 mg/dL (8.5-10.5); Carbon Dioxide 37 mmol/L (22-29); Chloride 90 mmol/L (98-107); Creatinine Clr Calc Pharmacy 46.2435; Globulin 2.1 g/dL (1.3-4.6); Glucose 213 mg/dL (65-115); Osmolality Calculated 294 mOsm/kg (285-295); Potassium 3.6 mmol/L (3.5-5.1); Sodium 136 mmol/L (136-145); Total Bilirubin 0.6 mg/dL (0.15-1.2); Total Protein 5.6 g/dL (6.6-8.7)
[2024-08-23 08:13] LABS: Glucose Point of Care 199 mg/dL (70-110)
--- NOTE | 2024-08-23 09:00 | PC.NURSE ---
Weaned down sedation medication for spontaneous breathing trial. Pt, at first, was able to nod head yes/no to questions. Then he started refusing to answer. He then went wild thrashing in the bed and aiming his kicking at staff. Precedex gtt increased, Versed back on at 1mg/mg, Fentanyl back on at 200mcg/hr. Dr Tripp notified. Discussed starting Propofol to wean off Versed. Dr Sierra approved. Propofol started.
[2024-08-23] MEDS: dexmedeTOMIDine 0.9 % NaCL 400 MCG/100 ML PREMIX 30.9 MCG IV ×4 (09:21→23:13)
--- NOTE | 2024-08-23 09:47 | PC.SOCIAL ---
IMM Update pg 2 of IMM Updated and reviewed w/ patients via phone. Copy provided and copy dated, initialed and placed in chart.
[2024-08-23] MEDS: propofol 1,000 MG/100 ML INJ 3.06 MG IV (10:11)
--- NOTE | 2024-08-23 12:00 | PC.NURSE ---
Propofol titrated up to 45/kg/hr. Versed gtt off . Fentanyl gtt at 100mcg/hr. PRecedex maxed at 1.2. Pt calm. Resp even, no vent alarms.
[2024-08-23 13:15] LABS: Glucose Point of Care 203 mg/dL (70-110)
[2024-08-23] MEDS: enoxaparin 40 mg/0.4 mL Syringe SUBCUT (13:31)
--- NOTE | 2024-08-23 15:09 | P.PN_ITS ---
Subjective 2 Subjective: Intubated, sedated this morning. Vitals/I&O/Wt Last Vital Signs Temp 98.6 F 08/23/24 12:45 Pulse 63 08/23/24 14:00 Resp 14 08/23/24 14:00 BP 146/91 08/23/24 14:00 Pulse Ox 100 08/23/24 13:45 O2 Del Method Mechanical Ventilation 08/23/24 14:00 O2 Flow Rate 15 08/21/24 08:45 FiO2 35 08/23/24 14:00 08/23/24 08/23/24 08/23/24 06:59 14:59 22:59 Intake Total 757.071 / 2777.297 410.213 / 410.213 Output Total 1650 / 3150 Balance -892.929 / -372.703 410.213 / 410.213 Weight last 48 hrs Weight 102.5 kg Weight 103 kg Physical Exam 2 Const: GENERAL APPEARANCE: patient mechanically ventilated HENMT: COMMON NORMALS: oropharynx normal Neck/C-Spine: COMMON NORMALS: no JVD Resp: COMMON NORMALS: normal respiratory effort and clear to auscultation bilaterally AUSCULTATION: clear to auscultation bilaterally, crackles Laterality: left (lower) and diminished lung sounds on the left in the lower lung aguayo Cardio: COMMON NORMALS: no JVD, regular rhythm, S1 normal heart sound present, S2 normal heart sound present and No murmurs present (Cardio) RHYTHM: regular rhythm HEART SOUNDS: S1 normal heart sound present and S2 normal heart sound present GI: COMMON NORMALS: Normal to inspection, nondistended, normoactive bowel sounds present, Soft to palpation and non-tender PALPATION: Yes Soft to palpation Extremity: COMMON NORMALS: no joint enlargement and no pedal edema GENERAL: Yes edema (2+ BLLE) Urinary Catheter Management: Cunningham: Cath Placed During This Visit: yes Reason for Continuing Indwelling Catheter: Accurate Measurement of Urinary Output in Critically Ill Patients Urinary Catheter Date of Insertion: 08/21/24 Urinary Catheter Time of Insertion: 09:46 Data 08/23/24 03:36 08/23/24 03:36 Micro: Microbiology 08/21/24 14:30 Fungal Smear - Preliminary Pleural Fluid 08/21/24 14:30 Gram Stain - Final Pleural Fluid Anaerobic Culture - Preliminary Body Fluid Culture - Preliminary 08/21/24 08:05 Gram Stain - Final Sputum - Endotracheal Tube Aspirate Sputum Culture - Preliminary A&P Assessment and plan (1) Acute on chronic hypoxic respiratory failure: Overnight started on Precedex, sedation attempted to be weaned, but he became very anxious, had to be turned back on on Versed and fentanyl. Subsequently lethargic, could not wake up enough in the morning to reassess for possible extubation. Discussed with nurse, respiratory therapy. Discussed with his . With further weaning of sedation, wake up. did do well with breathing trial, subsequently waking up, extubated to nasal cannula. Acute on chronic hypoxic respiratory failure, with hypoxemia on ABG, hypoxia on saturation down to 60s to 70s found at home by his family on pulse oximetry. Initially reluctant to come to hospital, but not objective subsequently, condition progressively deteriorating, require intubation mechanical ventilation to be started in ER. Suspected secondary to underlying pneumonia superimposed also on acute systolic congestive heart failure with progressive decompensation, as well as underlying COPD. Normally on 3 L of nasal cannula oxygen. Reviewed vitals, CBC,, CMP, lactic acid, baseline interval troponin, NT proBNP, UA, influenza, RSV, COVID PCR, chest x-ray, ER provider note, discussed with ER provider. Received Zosyn on presentation. Will broaden with Linezolid for now with possible hospital-acquired pneumonia. Obtain MRSA PCR. Obtain sputum culture. Continue mechanical ventilatory support and sedation. Reviewed ventilator settings. Chest x-ray. Weaning trial in the morning, wean sedation reassessment of status, breathing trial. For now sedation with fentanyl, was started on Versed as well, although currently maintaining blood pressure better. Systolic blood pressure 115, will stop Versed, give trial of propofol as hopefully he will not stay on the ventilator for too long. However, as discussed with nursing staff in case becoming hypotensive with propofol may have to stop propofol and go back to Versed. (2) Encephalopathy acute: Becoming very anxious, restless with weaning sedation over the prior 2 nights, was [place] subsequently in the afternoon today with weaning sedation, waking up, extubated to nasal cannula, continuing on Precedex for now. Resumed his home medications including lamotrigine, gabapentin, reduced gabapentin dose with ROCKY. Resume lithium, will check lithium level. Seroquel at bedtime. Methocarbamol as needed. (3) Pneumonia: Continue oxygen support, continue IV antibiotics, wean down as tolerating. Leukocytosis has resolved. Remaining afebrile. Reviewed CBC, chemistry, reviewed pleural aspirate culture, so far without growth. Heavy normal antolin in sputum culture. With parapneumonic effusion, reviewed pleural studies, pH is 7.2, LDH is below 200, cloudy solution. Try to reach his on the phone but could not get in touch with her to discuss possible empyema. Without appearance of empyema, additionally requested glucose analysis. He does appear to have had mostly drained with 1 L drained by thoracentesis yesterday. Pleural fluid glucose 220. Overall not suggestive of empyema although it is a complicated pneumonia with parapneumonic effusion. Continue IV antibiotic treatment. Consider reassessment of imaging in 1-2 days or sooner in case of worsening condition. Continue hemodynamic support. Very restless overnight, required additional sedation. Will reassess in the morning with breathing trial. Discussed with nursing, respiratory therapist. Discussed with case management manager. Left lower lobe consolidation on chest x-ray. With pleural effusion, assess for possible parapneumonic effusion, although does have full effusions on prior CT. With presentation with respiratory failure, leukocytosis, hypotension, assess for possible empyema, discussed with patient's , ER provider, radiology. Requested chest ultrasound, diagnostic thoracentesis. Requested lab work including body fluid analysis, Gram stain culture, pH, LDH, albumin. Follow-up. Antibiotic treatment as above for pneumonia. Check MRSA PCR with recent hospitalization with possible hospital-acquired pneumonia. (4) Acute on chronic systolic CHF (congestive heart failure), NYHA class 4: With persistent ROKCY, appears to be prerenal, will hold off further diuretic for now pending reassessment of renal function and volume status. Noted worsening renal function with ROCKY, creatinine 1.7. Did have some hypotension overnight. Reassess electrolytes. Monitor oxygenation. Acute systolic congestive heart failure with respiratory failure, lower extremity edema, underlying low ejection fraction, 25-30%. Status post AICD. Has been getting progressively dyspneic at home, unable to sleep at night, and sleep in the chair, able to sleep only for few hours. Does not have a CPAP at. Has not missed any of his diuretic doses at home. Transition to IV diuretics for now. Monitor intake and output, monitor for risk of electrolyte deficiency, renal dysfunction, ROCKY. Reassess chemistry. Replace hypomagnesemia. Complete troponin EKG series. Monitor telemetry. Plan ROCKY: Reviewed BUN, creatinine, BUN 28, creatinine noted up to 1.7. Based on FE urea appears to be prerenal ROCKY. Will hold further diuretics. Consider resumption depending on reassessment of renal function, volume status. He is producing urine. Edematous in lower extremities on presentation. In negative balance. Reviewed kidney ultrasound. No hydronephrosis. Elevated D-dimer: Mildly elevated 1.81. Venous duplex reviewed, negative for DVT. May be secondary to ROCKY, creatinine noted with rise up to 1.7. Not tachycardic, although has been also maintained off of beta-carol, may become tachycardic in case of withdrawal. Maintaining oxygenation on minimal ventilator settings. Acute metabolic encephalopathy with hypoxic respiratory failure on presentation with hypoxemia on presentation. Reviewed lithium level. Hypomagnesemia: Replace, recheck magnesium level. Chronic respiratory failure: Chronically on 3 L nasal cannula oxygen, with underlying congestive heart failure, COPD. COPD: Will give IV Solu-Medrol currently, monitor for risk of hyperglycemia, hypertension, encephalopathy with IV steroid. Antibiotic coverage as above. Anxiety: Consider benzodiazepine as needed for anxiety/air hunger. History of gastritis: PPI CAD: Continue aspirin, statin, hold beta-carol for now due to hypotension PDMP PDMP Reviewed: Not Reviewed Attestations 2 Medical Necessity Statement*: Continue admission for assessment and management of respiratory failure, pneumonia, acute encephalopathy, ROCKY, CHF. Coding Level of Care Code Critical Care >/= 30 minutes Critical care time (in minutes): 50 The high probability of a clinically significant, sudden or life threatening deterioration, as referenced in this documentation, required my full and direct attention, intervention and personal management. The critical care time shown is in addition to time spent performing any reported separately billable procedures and includes the following: [x] Data and vital sign review and interpretation [x ] Patient assessment, examination and intervention [x] Medication orders and management [x] Patient/Family updates as able [x] Care Coordination and Documentation. Diagnoses Acute on chronic hypoxic respiratory failure J96.21 Encephalopathy acute G93.40 Pneumonia J18.9 Acute on chronic systolic CHF (congestive heart failure), NYHA class 4 I50.23
--- NOTE | 2024-08-23 16:03 | PC.NURSE ---
Pt extubated. OG removed. OXygen at 4lpm/NC applied. Restraints off. PRecedex gtt decreased. His , Chata, notified via telephone of extubation. Dr Sierra aware.
--- NOTE | 2024-08-23 16:25 | PC.NURSE ---
Addendum entered by Rehana Hsieh RN 08/23/24 17:43: witnessed waste Original Note: Wasted Fentanyl, propofol and versed. See MAR for exact amounts. Witnessed by Rehana Hsieh RN, CCRN.
--- NOTE | 2024-08-23 19:01 | PC.NURSE ---
Shift summary: Sedation medications titrated to optimize reduction of anxiety this am. Pt was calm and follow commands enough to extubated shortly before 1600. He is utilizing oxygen at 4lpm/NC at this time. Pt is still slightly confused and impulsive. He keeps trying to quickly get out of bed to urinate, he has been reminded and shown he has a mcclelland repeatedly. He will lay his bed back and start resting with his eyes closed then he just jerks awake and sits straight up in the bed. Pt has been reassured repeatedly that he is breathing well and is safe, we are making sure of it. Precedex remains infusing at 0.8mcg/kg/hr. He had only 450 ml of dark yellow urine output. He stated he needed to BM, was assisted onto bedpan, then he promptly fell asleep. at bedside at tis time.
[2024-08-23] MEDS: dexmedeTOMIDine 0.9 % NaCL 400 MCG/100 ML PREMIX 20.6 MCG IV (19:54)
--- NOTE | 2024-08-23 19:54 | PC.NURSE ---
Precedex running at 0.8 upon patient report
[2024-08-23] MEDS: ondansetron 2 mg/ML SDV 2 mL 4 MG IVP (20:11)
[2024-08-23 20:45] LABS: Glucose Point of Care 153 mg/dL (70-110)
[2024-08-23] MEDS: mirtazapine 30 mg Tablet PO (20:48)
[2024-08-23] MEDS: lamoTRIgine 100 mg Tablet 200 MG PO (20:48)
[2024-08-23] MEDS: gabapentin 300 mg Capsule 600 MG PO (20:48)
--- NOTE | 2024-08-23 22:14 | XRR_ITS ---
PROCEDURE INFORMATION: Exam: XR Chest Exam date and time: 08/23/2024 9:36 PM Age: 68 years old Clinical indication: Shortness of breath; Prior surgery; Surgery date: <1 month; Surgery type: Pacer; Worsening hypoxia and mentation since extubation at 1600 hours yesterday. ; Additional info: Worsening mental status post extubation TECHNIQUE: Imaging protocol: Radiologic exam of the chest. Views: 1 view. COMPARISON: CR XR chest 1V portable [id number] 08/21/2024 2:04 PM FINDINGS: Tubes, catheters and devices: Right PICC line is in place with its tip in the superior vena cava. There is transvenous AICD in place with leads in appropriate position. Lungs: Visualized portions of the lungs are clear. There is no pulmonary venous congestion. Pleural spaces: Unremarkable. No pleural effusion. No pneumothorax. Heart/Mediastinum: The heart is mildly enlarged. Bones/joints: Unremarkable. XR/XR chest 1V portable [id number] IMPRESSION: 1. Cardiomegaly unchanged. 2. No acute infiltrate.
[2024-08-23 22:31] LABS: ABG PH Result 7.33 (7.35-7.45); Arterial Blood Gas Hematocrit 36.3 % (42-52); Base Excess ABG 12.3 mmol/L (-2.0-2.0); Blood Gas Allen Test Pos; Blood Gas Operator Identificat SAM; Blood Gas Sample Site Brachial, left; Blood Gas Sample Type Arterial; Carboxyhemoglobin 1.2 %THgb (0.4-20.1); HCO3 ABG 41.4 mmol/L (22-26); HGB O2 Sat 85.3 % (95-100); Ionized Calcium Level - ABG 1.4 mmol/L (1.1-1.4); Methemoglobin 0.4 % (0.4-1.5); Oxygen Device NC; Oxygen Saturation ABG 86.8; PO2 ABG 58.1 mmHg (80.0-100.0); Potassium Level - ABG 3.5 mmol/L (3.5-5.0); Total Hemoglobin 11.8 g/dL (14-18)
[2024-08-23 22:32] LABS: ABG PCO2 78.8 mmHg (35-45)
[2024-08-23 22:56] LABS: Lithium 0.1 mmol/L (0.6-1.2)
[2024-08-23 23:01] LABS: Lactate (Lactic Acid level) 1.7 mmol/L (0.5-2.2)
[2024-08-23] MEDS: FUROsemide 10 mg/mL SDV 10mL 80 MG IVP (23:09)
[2024-08-23] MEDS: albumin 25 G/100 ML BAG 60 G IV (23:09)
--- NOTE | 2024-08-23 23:09 | P.MISC_ITS ---
Miscellaneous Note Note: Was called by the patient's ICU night nurse that the patient was combative and confused, such that security was required. Per the night ICU nurse, the patient was extubated around 4pm to 4L NC. Since extubation, his O2 requirements kept increasing. His O2 sat levels this evening was as low as 79%, so he was placed on 15L hiflo, with improvement 89-90%. He then desatted back to 81%. An ABG was done on the L. wrist that showed 7.33/79/58. A CXR was ordered and pending. On exam, he is confused and keeps trying to sit up and get out of bed. He has b/l expiratory wheezes and inspiratory crackles from the b/l mid to lower lung aguayo. Although there is concern for an ROCKY, will give a dose of 50g of albumin x1, 80mg Furosemide x 1, and 500mg Acetazolamide x 1, in addition to continuing duoneb treatment in an attempt to diminish his chances of re- intubation. Will increase his Methylprednisolone to 60mg IV q12h from 30mg q8h. Will schedule daily acetazolamide.
[2024-08-23] MEDS: budesonide 0.5 mg/2 mL Neb INHALATION (23:13)
[2024-08-23] MEDS: acetaZOLAMIDE 250 mg Tablet 500 MG PO (23:35)
[2024-08-24] VITALS (63 sets, daily range): BP systolic 93–162; BP diastolic 54–94; PULSE 60–83; RESP 0–22; TEMP 36.1; O2SAT 92–100
[2024-08-24] MEDS: piperacillin-tazobactam 3.375 GM in sodium chloride 0.9% (plus) 50 ML IV ×3 (00:58→17:21)
[2024-08-24] MEDS: albumin 25 G/100 ML BAG 60 G IV (00:59)
[2024-08-24] MEDS: pantoprazole 40 mg SDV IVP ×2 (00:59→13:10)
[2024-08-24] MEDS: dexmedeTOMIDine 0.9 % NaCL 400 MCG/100 ML PREMIX 30.9 MCG IV ×2 (02:16→05:09)
[2024-08-24 02:54] LABS: Glucose Point of Care 113 mg/dL (70-110)
[2024-08-24] MEDS: ipratropium-albuterol 3 mL Neb INHALATION ×6 (03:14→23:21)
[2024-08-24 03:31] LABS: ABG PH Result 7.42 (7.35-7.45); Alveolar-Arterial Oxygen Gradi 9.4 mmHg (5-10); Arterial Blood Gas Hematocrit 35.5 % (42-52); Base Excess ABG 12.6 mmol/L (-2.0-2.0); Blood Gas Allen Test Pos; Blood Gas Operator Identificat SAM; Blood Gas Sample Site Brachial, left; Blood Gas Sample Type Arterial; HCO3 ABG 39.4 mmol/L (22-26); HGB O2 Sat 98.2 % (95-100); Ionized Calcium Level - ABG 1.3 mmol/L (1.1-1.4); Methemoglobin 0.4 % (0.4-1.5); Oxygen Device BIPAP; Oxygen Saturation ABG > 99.1; PO2 FiO2 Ratio Arterial Blood 342; Potassium Level - ABG 3.6 mmol/L (3.5-5.0); Total Hemoglobin 11.6 g/dL (14-18)
[2024-08-24 03:32] LABS: ABG PCO2 60.5 mmHg (35-45)
[2024-08-24] MEDS: linezolid premix 600 MG/300 ML PREMIX 300 MG IV ×2 (03:38→15:31)
[2024-08-24 04:50] LABS: Basophils % 0.1 %; Hematocrit 34.6 % (37-53); Lymphocytes # 0.4 10^3/uL (0.8-4.8); Lymphocytes % 3.5 %; Mean Corpuscular HGB Conc 31.2 g/dL (30-55); Mean Corpuscular Hemoglobin 31.2 pg (27-33); Monocytes # 0.5 10^3/uL (0.2-0.9); Monocytes % 4.7 %; Neutrophils # 8.99 10^3/uL (1.8-7.7); Neutrophils % 91.2 %; Nucleated Red Blood Cells % 0 %; Platelet Count 150 10^3/cmm (157-399); Red Blood Count 3.46 10^6/uL (3.85-5.65); Red Cell Distribution Width 13.2 % (12.1-15.1); White Blood Count 9.86 10^3/uL (3.29-11.43)
[2024-08-24 05:09] LABS: Alanine Aminotransferase < 5 U/L (0-41); Albumin Level 4.1 g/dL (3.5-5.2); Alkaline Phosphatase 58 U/L (40-130); Anion Gap 11.6 (5-19); Aspartate Amino Transferase 10 U/L (0-40); Blood Urea Nitrogen 41 mg/dL (8-23); Calcium 10.3 mg/dL (8.5-10.5); Carbon Dioxide 38 mmol/L (22-29); Chloride 92 mmol/L (98-107); Creatinine Clr Calc Pharmacy 52.2796; Globulin 1.9 g/dL (1.3-4.6); Glomerular Filtration Rate 46.3 mL/min (90-130); Glucose 109 mg/dL (65-115); Osmolality Calculated 297 mOsm/kg (285-295); Potassium 3.6 mmol/L (3.5-5.1); Sodium 138 mmol/L (136-145); Total Bilirubin 0.7 mg/dL (0.15-1.2)
--- NOTE | 2024-08-24 05:49 | PC.NURSE ---
Patient became very agitated and combative during shift. Very altered mentally. Security called and doctor notified. Patients oxygen saturation kept lowering. Doctor also notified and ordered ABG's.Determined patient needed to be placed on BiPap and gave precedex on board to keep patient comfortable and non combative.
[2024-08-24] MEDS: budesonide 0.5 mg/2 mL Neb INHALATION ×2 (07:20→19:34)
[2024-08-24 07:32] LABS: Glucose Point of Care 172 mg/dL (70-110)
[2024-08-24] MEDS: methylPREDNISolone sod succ 40 mg/mL INJ 30 MG IVP ×3 (07:40→23:19)
[2024-08-24] MEDS: insulin lispro 100 unit/1 mL SUBCUT ×2 (07:41→13:10)
[2024-08-24] MEDS: dexmedeTOMIDine 0.9 % NaCL 400 MCG/100 ML PREMIX 25.75 MCG IV (08:48)
--- NOTE | 2024-08-24 08:54 | XRR_ITS ---
PROCEDURE INFORMATION: Exam: XR Chest Exam date and time: 08/24/2024 9:00 AM Age: 68 years old Clinical indication: Shortness of breath; Additional info: SOB TECHNIQUE: Imaging protocol: Radiologic exam of the chest. Views: 1 view. COMPARISON: CR (CHEST, ) 08/23/2024 9:36 PM FINDINGS: Tubes, catheters and devices: Stable intact pacemaker/AICD hardware. Unchanged PICC. Lungs: Unremarkable. No consolidation. Pleural spaces: Unremarkable. No pleural effusion. No pneumothorax. Heart/Mediastinum: Stable cardiomegaly. Bones/joints: No acute findings. XR/XR chest 1V portable [id number] IMPRESSION: Unchanged chest x-ray. No acute findings.
[2024-08-24 09:18] LABS: NT Pro B Type Natriuretic Pept 6523 pg/mL (0-125); Procalcitonin 0.12 ng/mL (0-0.5)
[2024-08-24] MEDS: FUROsemide 10 mg/mL SDV 4mL 40 MG IVP ×2 (11:31→20:08)
[2024-08-24] MEDS: lithium carbonate 300 mg Capsule PO ×2 (11:59→17:22)
[2024-08-24] MEDS: aspirin 81 mg EC Tablet PO (11:59)
[2024-08-24] MEDS: carvedilol 6.25 mg Tablet 3.125 MG PO ×2 (12:00→17:22)
[2024-08-24] MEDS: guaiFENesin 600 mg Tablet PO ×2 (12:00→17:21)
[2024-08-24] MEDS: enoxaparin 40 mg/0.4 mL Syringe SUBCUT (13:10)
--- NOTE | 2024-08-24 13:43 | PC.NURSE ---
more awake weaned down precedex at this time off bipap and to o2 nc at this time weaned down to 4l assisted up in chair with assist of 2 noon meal served with good appititie no difficultly swallowing at this time
--- NOTE | 2024-08-24 15:28 | P.PN_ITS ---
Subjective 2 Subjective: Patient was seen this morning, currently on BiPAP, he does awaken, but easily falls back asleep, currently on BiPAP therapy, resting comfortably, does report feeling short of breath, Vitals/I&O/Wt Last Vital Signs Temp 97 F L 08/24/24 10:00 Pulse 65 08/24/24 15:10 Resp 18 08/24/24 15:10 BP 113/68 08/24/24 13:00 Pulse Ox 100 08/24/24 15:10 O2 Del Method Nasal Cannula 08/24/24 15:10 O2 Flow Rate 2 08/23/24 20:00 FiO2 4 08/24/24 15:10 08/24/24 08/24/24 08/24/24 06:59 14:59 22:59 Intake Total 878.745 / 2121.162 652.959 / 652.959 8.931 / 661.890 Output Total 1000 / 1000 Balance 878.745 / 1271.162 652.959 / 652.959 -991.069 / -338.110 Weight last 48 hrs Weight 99 kg Weight 102.5 kg Physical Exam 2 Const: COMMON NORMALS: no acute distress ORIENTATION/CONSCIOUSNESS: Yes awake and Yes oriented to person Eye: COMMON NORMALS: Equal, round and reactive pupils present PUPIL: Yes Equal, round and reactive pupils present Resp: COMMON NORMALS: normal respiratory effort, No retractions and No use of accessory muscles AUSCULTATION: crackles and wheezes Cardio: COMMON NORMALS: regular rate, regular rhythm, S1 normal heart sound present and S2 normal heart sound present RATE: regular rate RHYTHM: r egular rhythm HEART SOUNDS: S1 normal heart sound present and S2 normal heart sound present GI: COMMON NORMALS: Normal to inspection, nondistended, normoactive bowel sounds present and non-tender OTHER: Umbilical hernia Extremity: COMMON NORMALS: no pedal edema Neuro: SENSORIUM/ORIENTATION: Yes oriented to person Urinary Catheter Management: Cunningham: Cath Placed During This Visit: yes Reason for Continuing Indwelling Catheter: Accurate Measurement of Urinary Output in Critically Ill Patients Urinary Catheter Date of Insertion: 08/21/24 Urinary Catheter Time of Insertion: 09:46 Data 08/24/24 03:42 08/24/24 03:42 Micro: Microbiology 08/21/24 14:30 Gram Stain - Final Pleural Fluid Anaerobic Culture - Preliminary Body Fluid Culture - Preliminary 08/21/24 08:05 Gram Stain - Final Sputum - Endotracheal Tube Aspirate Sputum Culture - Final A&P Assessment and plan (1) Acute on chronic hypoxic respiratory failure: -Secondary to healthcare associated pneumonia with parapneumonic effusion -Systolic CHF, fluid overload -COPD exacerbation -Extubated 08/23/2024 -Currently on BiPAP Plan -Continued BiPAP during the day, can switch to as needed during the day, scheduled during the night -Lasix 40 IV twice daily -Continue Zyvox -Continue Zosyn -Continue Solu-Medrol 30 mg IV every 8 hours -Monitor respiratory status closely -DuoNeb -Budesonide -Full code -Lovenox for DVT prophylaxis (2) Encephalopathy acute: - Monitor mentation closely -Currently on Precedex (3) Pneumonia: -Parapneumonic effusion -1 L drained by thoracentesis -Culture or so far no growth -Gram stain no organisms, no white blood cells -Blood cultures so far negative -Pathology so far showing histiocytes, reactive mesothelial cells -pH 7.2, LDH is 200, glucose is 220 -Overall not suggestive of empyema -Will consider repeat imaging based on clinical progress (4) Acute on chronic systolic CHF (congestive heart failure), NYHA class 4: -History of EF 25 to 30% Plan ROCKY: Monitor creatinine Hypomagnesemia: Monitor Chronic respiratory failure: Chronically on 3 L nasal cannula oxygen, with underlying congestive heart failure, COPD. COPD: As above Anxiety: Consider benzodiazepine as needed for anxiety/air hunger. History of gastritis: PPI CAD: Continue aspirin, statin, hold beta-carol for now due to hypotension PDMP PDMP Reviewed: Not Reviewed Attestations 2 Medical Necessity Statement*: Patient requires hospitalization for acute hypoxic respiratory failure secondary to pneumonia, healthcare associated pneumonia, parapneumonic effusion, CHF, COPD Diagnoses Acute on chronic hypoxic respiratory failure J96.21 Encephalopathy acute G93.40 Pneumonia J18.9 Acute on chronic systolic CHF (congestive heart failure), NYHA class 4 I50.23
[2024-08-24] MEDS: montelukast sodium 10 mg Tablet PO (17:21)
[2024-08-24 17:28] LABS: Glucose Point of Care 170 mg/dL (70-110)
[2024-08-24 20:00] LABS: Glucose Point of Care 89 mg/dL (70-110)
[2024-08-24] MEDS: lamoTRIgine 100 mg Tablet 200 MG PO (20:08)
[2024-08-24] MEDS: gabapentin 300 mg Capsule 600 MG PO (20:08)
[2024-08-24] MEDS: mirtazapine 30 mg Tablet PO ×2 (20:09→20:27)
[2024-08-25] VITALS (33 sets, daily range): BP systolic 104–140; BP diastolic 55–77; PULSE 60–78; RESP 12–25; TEMP 37; O2SAT 86–100
[2024-08-25] MEDS: piperacillin-tazobactam 3.375 GM in sodium chloride 0.9% (plus) 50 ML IV ×3 (02:05→17:20)
[2024-08-25] MEDS: pantoprazole 40 mg SDV IVP ×2 (02:06→13:21)
[2024-08-25 02:14] LABS: Glucose Point of Care 200 mg/dL (70-110)
[2024-08-25] MEDS: linezolid premix 600 MG/300 ML PREMIX 300 MG IV ×2 (02:17→13:21)
[2024-08-25] MEDS: insulin lispro 100 unit/1 mL SUBCUT ×4 (02:17→21:17)
[2024-08-25] MEDS: ipratropium-albuterol 3 mL Neb INHALATION ×6 (03:36→23:10)
[2024-08-25 04:21] LABS: Basophils % 0.1 %; Hematocrit 38.5 % (37-53); Lymphocytes # 0.5 10^3/uL (0.8-4.8); Lymphocytes % 3.9 %; Mean Corpuscular HGB Conc 30.9 g/dL (30-55); Mean Corpuscular Hemoglobin 32.1 pg (27-33); Mean Corpuscular Volume 103.8 fl (82-101); Mean Platelet Volume 11.5 fL (7.4-10.4); Monocytes # 0.3 10^3/uL (0.2-0.9); Monocytes % 2.5 %; Neutrophils # 12.74 10^3/uL (1.8-7.7); Neutrophils % 92.8 %; Nucleated Red Blood Cells % 0 %; Platelet Count 180 10^3/cmm (157-399); Red Blood Count 3.71 10^6/uL (3.85-5.65); Red Cell Distribution Width 13.3 % (12.1-15.1); White Blood Count 13.71 10^3/uL (3.29-11.43)
[2024-08-25 04:42] LABS: Alanine Aminotransferase 8 U/L (0-41); Albumin Level 3.9 g/dL (3.5-5.2); Alkaline Phosphatase 60 U/L (40-130); Blood Urea Nitrogen 50 mg/dL (8-23); C Reactive Protein 5.4 mg/L (0.0-4.9); Calcium 9.7 mg/dL (8.5-10.5); Carbon Dioxide 37 mmol/L (22-29); Chloride 91 mmol/L (98-107); Creatinine Clr Calc Pharmacy 45.3284; Globulin 2.2 g/dL (1.3-4.6); Glucose 216 mg/dL (65-115); Osmolality Calculated 304 mOsm/kg (285-295); Phosphorus 5.4 mg/dL (2.5-4.5); Sodium 137 mmol/L (136-145); Total Bilirubin 0.5 mg/dL (0.15-1.2); Total Protein 6.1 g/dL (6.6-8.7)
[2024-08-25 05:05] LABS: Anion Gap 12.6 (5-19); Aspartate Amino Transferase 12 U/L (0-40); Potassium 3.6 mmol/L (3.5-5.1)
[2024-08-25 05:25] LABS: NT Pro B Type Natriuretic Pept 6809 pg/mL (0-125); Procalcitonin 0.17 ng/mL (0-0.5)
[2024-08-25] MEDS: pantoprazole DR 40 mg Tablet PO (06:12)
--- NOTE | 2024-08-25 07:00 | XRR_ITS ---
PROCEDURE INFORMATION: Exam: XR Chest Exam date and time: 08/25/2024 7:58 AM Age: 68 years old Clinical indication: Shortness of breath; Additional info: SOB TECHNIQUE: Imaging protocol: Radiologic exam of the chest. Views: 1 view. COMPARISON: CR (CHEST, ) 08/24/2024 9:00 AM FINDINGS: Tubes, catheters and devices: A defibrillator device is present, and its leads are in appropriate position. Tip of the right upper extremity PICC is at the superior cavoatrial junction. Lungs: Left lower lobe atelectasis. There is no evidence of focal pulmonary consolidation. Pleural spaces: Unremarkable. No pleural effusion. No pneumothorax. Heart/Mediastinum: The heart is enlarged. Bones/joints: Mild degenerative disease of bilateral acromioclavicular joints. There are mild degenerative changes of the glenohumeral joint. The thoracic spine demonstrates moderate degenerative changes at multiple levels. XR/XR chest 1V portable [id number] IMPRESSION: Similar retrocardiac atelectasis.
[2024-08-25] MEDS: budesonide 0.5 mg/2 mL Neb INHALATION ×2 (07:50→20:51)
[2024-08-25 07:52] LABS: Glucose Point of Care 153 mg/dL (70-110)
--- NOTE | 2024-08-25 08:44 | CTR_ITS ---
PROCEDURE INFORMATION: Exam: CT Chest Without Contrast; Diagnostic Exam date and time: 08/25/2024 9:12 AM Age: 68 years old Clinical indication: Shortness of breath; Prior surgery; Surgery date: 6+ months; Surgery type: Pacer; Additional info: Pleural effusion TECHNIQUE: Imaging protocol: Diagnostic computed tomography of the chest without contrast. Radiation optimization: All CT scans at this facility use at least one of these dose optimization techniques: automated exposure control; mA and/or kV adjustment per patient size (includes targeted exams where dose is matched to clinical indication); or iterative reconstruction. COMPARISON[place] [id number] 06/29/2024 11:33 AM RADIATION DOSE METRICS: Total DLP (mGy-cm): 613.94 FINDINGS: Tubes, catheters and devices: A defibrillator device is present, and its leads are in appropriate position. Right upper extremity PICC tip is at the superior cavoatrial junction. Lungs: Bilateral lower lobe atelectasis. Pleural spaces: Small bilateral pleural effusions. Heart: The heart is enlarged. Coronary arteries: There is moderate atherosclerotic calcification of the coronary arteries. Lymph nodes: Unremarkable. No enlarged lymph nodes. Vasculature: Unremarkable. No aortic aneurysm. Intraperitoneal space: There is a small amount of free intraperitoneal fluid present. Bones/joints: The thoracic spine demonstrates mild degenerative changes at multiple levels. Mild curvature of the thoracic spine convex to the left. Soft tissues: Unremarkable. CT/CT chest wo con [id number] IMPRESSION: Bilateral pleural effusions with lower lobe atelectasis.
[2024-08-25] MEDS: methylPREDNISolone sod succ 40 mg/mL INJ 30 MG IVP (08:49)
[2024-08-25] MEDS: FUROsemide 10 mg/mL SDV 4mL 40 MG IVP ×2 (08:50→20:22)
[2024-08-25] MEDS: acetaZOLAMIDE 250 mg Tablet 500 MG PO (08:50)
[2024-08-25] MEDS: aspirin 81 mg EC Tablet PO (08:50)
[2024-08-25] MEDS: carvedilol 6.25 mg Tablet 3.125 MG PO ×2 (08:51→17:20)
[2024-08-25] MEDS: guaiFENesin 600 mg Tablet PO ×2 (08:51→17:21)
[2024-08-25] MEDS: lithium carbonate 300 mg Capsule PO ×2 (08:51→17:21)
--- NOTE | 2024-08-25 13:06 | P.PN_ITS ---
Subjective 2 Subjective: Patient was seen this morning, he is alert oriented x 3, following all commands, sitting up in a chair, enjoying his breakfast, currently on 3 L, does report shortness of breath, although improved, no chest pain, no palpitations, discussed doing a CT of his chest, continue IV diuresis, he is in agreement, Vitals/I&O/Wt Last Vital Signs Temp 97 F L 08/24/24 16:00 Pulse 68 08/25/24 12:00 Resp 15 08/25/24 12:00 BP 111/60 08/25/24 12:00 Pulse Ox 91 08/25/24 12:00 O2 Del Method Nasal Cannula 08/25/24 11:49 O2 Flow Rate 3 08/25/24 11:49 FiO2 40 08/24/24 23:27 08/24/24 08/25/24 08/25/24 22:59 06:59 14:59 Intake Total 1038.931 / 1691.890 530 / 2221.890 1200 / 1200 Output Total 1000 / 1000 600 / 1600 2600 / 2600 Balance 38.931 / 691.890 -70 / 621.890 -1400 / -1400 Weight last 48 hrs Weight 99 kg Weight 99 kg Physical Exam 2 Const: COMMON NORMALS: no acute distress and patient oriented x3 Resp: COMMON NORMALS: normal respiratory effort, No retractions and No use of accessory muscles OTHER: Crackles in all lung aguayo Cardio: COMMON NORMALS: regular rate, regular rhythm, S1 normal heart sound present and S2 normal heart sound present RATE: regular rate RHYTHM: r egular rhythm HEART SOUNDS: S1 normal heart sound present and S2 normal heart sound present GI: COMMON NORMALS: Normal to inspection, nondistended, normoactive bowel sounds present and non-tender Extremity: NARRATIVE EXTREMITY EXAM: Nonpitting edema, anasarca Neuro: COMMON NORMALS: patient oriented x3 Psych: COMMON NORMALS: mental status grossly normal Urinary Catheter Management: Cunningham: Cath Placed During This Visit: yes Reason for Continuing Indwelling Catheter: Accurate Measurement of Urinary Output in Critically Ill Patients Urinary Catheter Date of Insertion: 08/21/24 Urinary Catheter Time of Insertion: 09:46 Data 08/25/24 03:55 08/25/24 03:55 Micro: Microbiology 08/21/24 14:30 Gram Stain - Final Pleural Fluid Anaerobic Culture - Preliminary Body Fluid Culture - Final A&P Assessment and plan (1) Acute on chronic hypoxic respiratory failure: -Secondary to healthcare associated pneumonia with parapneumonic effusion -Systolic CHF, fluid overload -COPD exacerbation -Extubated 08/23/2024 -Currently on BiPAP Plan -Continued BiPAP during the day, can switch to as needed during the day, scheduled during the night -Lasix 40 IV twice daily, 1 dose metolazone today -Continue Zyvox -Continue Zosyn -Continue Solu-Medrol 30 mg IV every 8 hours, de-escalate to prednisone 40 mg daily -Monitor respiratory status closely -DuoNeb -Budesonide -Full code -Lovenox for DVT prophylaxis (2) Encephalopathy acute: - Monitor mentation closely -Currently on Precedex (3) Pneumonia: -Parapneumonic effusion -1 L drained by thoracentesis -Culture or so far no growth -Gram stain no organisms, no white blood cells -Blood cultures so far negative -Pathology so far showing histiocytes, reactive mesothelial cells -pH 7.2, LDH is 200, glucose is 220 -Overall not suggestive of empyema -Will consider repeat imaging based on clinical progress (4) Acute on chronic systolic CHF (congestive heart failure), NYHA class 4: -History of EF 25 to 30% Plan ROCKY: Monitor creatinine Hypomagnesemia: Monitor Chronic respiratory failure: Chronically on 3 L nasal cannula oxygen, with underlying congestive heart failure, COPD. COPD: As above Anxiety: Consider benzodiazepine as needed for anxiety/air hunger. History of gastritis: PPI CAD: Continue aspirin, statin, hold beta-carol for now due to hypotension Plan for today IV diuresis, CT chest, continue IV antibiotics, PDMP PDMP Reviewed: Not Reviewed Attestations 2 Medical Necessity Statement*: Patient requires hospitalization for acute hypoxic respiratory failure, acute CHF Diagnoses Acute on chronic hypoxic respiratory failure J96.21 Encephalopathy acute G93.40 Pneumonia J18.9 Acute on chronic systolic CHF (congestive heart failure), NYHA class 4 I50.23
[2024-08-25 13:19] LABS: Glucose Point of Care 198 mg/dL (70-110)
[2024-08-25] MEDS: enoxaparin 40 mg/0.4 mL Syringe SUBCUT (13:21)
[2024-08-25] MEDS: montelukast sodium 10 mg Tablet PO (17:21)
[2024-08-25] MEDS: gabapentin 300 mg Capsule 600 MG PO (20:22)
[2024-08-25] MEDS: mirtazapine 30 mg Tablet PO (20:22)
[2024-08-25] MEDS: lamoTRIgine 100 mg Tablet 200 MG PO (20:22)
[2024-08-25 20:28] LABS: Glucose Point of Care 206 mg/dL (70-110)
[2024-08-26] VITALS (21 sets, daily range): BP systolic 77–113; BP diastolic 49–83; PULSE 59–84; RESP 14–23; TEMP 36.6–37.2; O2SAT 78–100
[2024-08-26] MEDS: pantoprazole 40 mg SDV IVP ×2 (02:07→13:19)
[2024-08-26] MEDS: piperacillin-tazobactam 3.375 GM in sodium chloride 0.9% (plus) 50 ML IV ×3 (02:08→17:26)
[2024-08-26] MEDS: ipratropium-albuterol 3 mL Neb INHALATION ×5 (03:50→20:28)
[2024-08-26] MEDS: linezolid premix 600 MG/300 ML PREMIX 300 MG IV ×2 (04:13→14:30)
[2024-08-26 05:25] LABS: Basophils % 0.1 %; Hematocrit 38.4 % (37-53); Lymphocytes # 0.8 10^3/uL (0.8-4.8); Lymphocytes % 8.4 %; Mean Corpuscular HGB Conc 30.5 g/dL (30-55); Mean Corpuscular Hemoglobin 31.6 pg (27-33); Mean Corpuscular Volume 103.8 fl (82-101); Mean Platelet Volume 11.5 fL (7.4-10.4); Monocytes # 0.6 10^3/uL (0.2-0.9); Monocytes % 6.4 %; Neutrophils # 7.76 10^3/uL (1.8-7.7); Neutrophils % 84.3 %; Nucleated Red Blood Cells % 0 %; Platelet Count 149 10^3/cmm (157-399); Red Cell Distribution Width 13.2 % (12.1-15.1)
[2024-08-26 05:44] LABS: Alanine Aminotransferase 9 U/L (0-41); Albumin Level 3.5 g/dL (3.5-5.2); Alkaline Phosphatase 54 U/L (40-130); Anion Gap 10.3 (5-19); Aspartate Amino Transferase 8 U/L (0-40); Blood Urea Nitrogen 54 mg/dL (8-23); Calcium 9.7 mg/dL (8.5-10.5); Carbon Dioxide 40 mmol/L (22-29); Chloride 92 mmol/L (98-107); Creatinine Clr Calc Pharmacy 42.8102; Globulin 1.8 g/dL (1.3-4.6); Glomerular Filtration Rate 37.5 mL/min (90-130); Glucose 127 mg/dL (65-115); Magnesium 2.1 mg/dL (1.7-2.3); Osmolality Calculated 304 mOsm/kg (285-295); Phosphorus 3.8 mg/dL (2.5-4.5); Potassium 3.3 mmol/L (3.5-5.1); Sodium 139 mmol/L (136-145); Total Bilirubin 0.5 mg/dL (0.15-1.2); Total Protein 5.3 g/dL (6.6-8.7)
[2024-08-26 05:56] LABS: NT Pro B Type Natriuretic Pept 4979 pg/mL (0-125); Procalcitonin 0.17 ng/mL (0-0.5)
[2024-08-26] MEDS: pantoprazole DR 40 mg Tablet PO (06:20)
--- NOTE | 2024-08-26 06:25 | PC.NURSE ---
At beginning of shift noted that pt blood sugars and insulin was q 6 hours, but pt was eating regularly scheduled meals. Discussed same with Dr. Marks, new order received to change SS insulin and blood sugars to QID ACHS.
[2024-08-26 07:53] LABS: Glucose Point of Care 206 mg/dL (70-110)
[2024-08-26] MEDS: budesonide 0.5 mg/2 mL Neb INHALATION ×2 (08:05→20:28)
[2024-08-26] MEDS: aspirin 81 mg EC Tablet PO (08:19)
[2024-08-26] MEDS: FUROsemide 10 mg/mL SDV 4mL 40 MG IVP (08:19)
[2024-08-26] MEDS: carvedilol 6.25 mg Tablet 3.125 MG PO ×2 (08:20→17:26)
[2024-08-26] MEDS: guaiFENesin 600 mg Tablet PO ×2 (08:21→17:27)
[2024-08-26] MEDS: lithium carbonate 300 mg Capsule PO ×2 (08:21→17:27)
[2024-08-26] MEDS: acetaZOLAMIDE 250 mg Tablet 500 MG PO (08:21)
[2024-08-26] MEDS: insulin lispro 100 unit/1 mL SUBCUT ×2 (08:24→20:40)
--- NOTE | 2024-08-26 09:42 | PC.NURSE ---
Dr Dsouza gave verbal orders for 40mEq Potassium PO daily as well as PT evaluation. Orders placed
[2024-08-26 11:15] LABS: Glucose Point of Care 136 mg/dL (70-110)
--- NOTE | 2024-08-26 12:59 | PC.SOCIAL ---
IMM Update pg 2 of IMM updated and reviewed w/ patient. Copy provided and copy dated, initialed and placed in chart.
[2024-08-26] MEDS: enoxaparin 40 mg/0.4 mL Syringe SUBCUT (13:19)
[2024-08-26] MEDS: potassium chloride ER 20 mEq Tablet 40 MEQ PO (13:19)
--- NOTE | 2024-08-26 15:17 | P.PN_ITS ---
Subjective 2 Subjective: Patient was examined this morning, he is sitting up in a chair, alert oriented x 3, following all commands, denies any fevers, chills, has a mild cough shortness of breath is improving, Vitals/I&O/Wt Last Vital Signs Temp 98.4 F 08/26/24 12:01 Pulse 64 08/26/24 14:00 Resp 23 H 08/26/24 14:00 BP 110/60 08/26/24 14:00 Pulse Ox 95 08/26/24 14:00 O2 Del Method Nasal Cannula 08/26/24 14:00 O2 Flow Rate 2 08/26/24 14:00 FiO2 40 08/26/24 03:51 08/26/24 08/26/24 08/26/24 06:59 14:59 22:59 Intake Total 880 / 2550 650 / 650 Output Total 2100 / 5100 Balance -1220 / -2550 650 / 650 Weight last 48 hrs Weight 99 kg Weight 99 kg Physical Exam 2 Const: COMMON NORMALS: no acute distress and patient oriented x3 Resp: COMMON NORMALS: normal respiratory effort, No retractions and No use of accessory muscles AUSCULTATION: crackles and wheezes Cardio: COMMON NORMALS: regular rate, regular rhythm, S1 normal heart sound present and S2 normal heart sound present RATE: regular rate RHYTHM: r egular rhythm HEART SOUNDS: S1 normal heart sound present and S2 normal heart sound present GI: COMMON NORMALS: Normal to inspection, nondistended, normoactive bowel sounds present and non-tender Extremity: COMMON NORMALS: no pedal edema Neuro: COMMON NORMALS: patient oriented x3 Psych: COMMON NORMALS: mental status grossly normal Urinary Catheter Management: Cunningham: Cath Placed During This Visit: yes Reason for Continuing Indwelling Catheter: Accurate Measurement of Urinary Output in Critically Ill Patients Urinary Catheter Date of Insertion: 08/21/24 Urinary Catheter Time of Insertion: 09:46 Data 08/26/24 04:33 08/26/24 04:33 Micro: Microbiology 08/21/24 09:22 Blood Culture - Final Blood NO GROWTH AFTER 5 DAYS 08/21/24 09:17 Blood Culture - Final Blood NO GROWTH AFTER 5 DAYS 08/21/24 14:30 Gram Stain - Final Pleural Fluid Anaerobic Culture - Preliminary Body Fluid Culture - Final A&P Assessment and plan (1) Acute on chronic hypoxic respiratory failure: -Acute hypoxic hypercarbic respiratory failure, pCO2 95 -Secondary to healthcare associated pneumonia with parapneumonic effusion -Systolic CHF, fluid overload -COPD exacerbation -Extubated 08/23/2024 -Currently on BiPAP Plan -Continued BiPAP during the day, can switch to as needed during the day, scheduled during the night -Creatinine up to 1.8, -5 L yesterday, status post 1 dose Lasix today, hold further doses -Continue Zyvox -Continue Zosyn -Continue Solu-Medrol 30 mg IV every 8 hours, de-escalate to prednisone 40 mg daily -Monitor respiratory status closely -DuoNeb -Budesonide -Full code -Lovenox for DVT prophylaxis -Patient has chronic hypercarbic respiratory failure, likely multifactorial factorial from COPD, CHF, -I do the patient would clinically benefit from BiPAP, decreased risk of recurrent hospitalization, -Will order overnight pulse oximeter to see if he can qualify -But based upon his admission CO2 of 95, and CO2 improvement to 60.5, and prior admissions for hypercarbic respiratory failure he would likely benefit from BiPAP therapy at home (2) Encephalopathy acute: - Monitor mentation closely (3) Pneumonia: -Parapneumonic effusion -1 L drained by thoracentesis -Culture or so far no growth -Gram stain no organisms, no white blood cells -Blood cultures so far negative -Pathology so far showing histiocytes, reactive mesothelial cells -pH 7.2, LDH is 200, glucose is 220 -Overall not suggestive of empyema -Repeat CT chest shows bilateral pleural effusions (4) Acute on chronic systolic CHF (congestive heart failure), NYHA class 4: -History of EF 25 to 30% Plan ROCKY: Monitor creatinine Hypomagnesemia: Monitor Chronic respiratory failure: Chronically on 3 L nasal cannula oxygen, with underlying congestive heart failure, COPD. COPD: As above Anxiety: Consider benzodiazepine as needed for anxiety/air hunger. History of gastritis: PPI CAD: Continue aspirin, statin, hold beta-carol for now due to hypotension Plan for today moved to cardiac stepdown unit, continue IV antibiotics, overnight pulse ox PDMP PDMP Reviewed: Not Reviewed Attestations 2 Medical Necessity Statement*: Patient requires hospitalization for hypoxic hypercarbic respiratory failure, COPD, CHF, pneumonia Diagnoses Acute on chronic hypoxic respiratory failure J96.21 Encephalopathy acute G93.40 Pneumonia J18.9 Acute on chronic systolic CHF (congestive heart failure), NYHA class 4 I50.23
--- NOTE | 2024-08-26 15:39 | PC.NURSE ---
pt received from icu at 1515. Report given by Maggy Laughlin RN. Patient brought to the room by Maggy Laughlin and Garima Sanabria, hooked up to monitor and is sitting in chair watching tv.
--- NOTE | 2024-08-26 16:43 | PC.NURSE ---
patient found on the floor at 1635. Patient stated he was trying to reach something on the floor from his recliner and just kept sliding down. supervisor hard candy, Garima, and Maggy all responded and team was able to sit the patient up and lift him off the floor with a gait belt. Vtals are all within normal limits. Patient is not reporting any pain. Dr Dsouza notified. Order given to monitor and keep patient on bed rest.
--- NOTE | 2024-08-26 17:17 | CTR_ITS ---
PROCEDURE INFORMATION: Exam: CT Head Without Contrast Exam date and time: 08/26/2024 6:50 PM Age: 68 years old Clinical indication: Injury or trauma; Fall; Blunt trauma (contusions or hematomas); Consciousness not specified TECHNIQUE: Imaging protocol: Computed tomography of the head without contrast. Radiation optimization: All CT scans at this facility use at least one of these dose optimization techniques: automated exposure control; mA and/or kV adjustment per patient size (includes targeted exams where dose is matched to clinical indication); or iterative reconstruction. COMPARISON: CT head wo con* [id number] 06/23/2024 10:12 PM RADIATION DOSE METRICS: Total DLP (mGy-cm): 1096.69 FINDINGS: Brain: Periventricular white matter changes likely related to chronic ischemic small vessel disease. No intracranial mass, hemorrhage or recent infarct. Cerebral ventricles: No ventriculomegaly. Paranasal sinuses: Visualized sinuses are unremarkable. No fluid levels. Mastoid air cells: Visualized mastoid air cells are well aerated. Bones: Unremarkable. No acute fracture. Soft tissues: Unremarkable. CT/CT head wo con* [id number] IMPRESSION: No acute intracranial abnormality.
--- NOTE | 2024-08-26 17:17 | XRR_ITS ---
PROCEDURE INFORMATION: Exam: XR Bilateral Hips Exam date and time: 08/26/2024 6:59 PM Age: 68 years old Clinical indication: Injury or trauma; Fall; Blunt trauma (contusions or hematomas); Bilateral; Pelvic region; Prior surgery; Surgery date: <1 month; Surgery type: Lumbar TECHNIQUE: Imaging protocol: Radiologic exam of the bilateral hips. Views: 2 views of hips with pelvis when performed. COMPARISON: [place] [id number] 06/29/2024 11:33 AM FINDINGS: Bones/joints: Bilateral hip joint space narrowing present with mild subchondral sclerosis. No acute fracture. Soft tissues: Unremarkable. XR/XR hip BI 2V wo/w pel [id number] IMPRESSION: No acute findings.
--- NOTE | 2024-08-26 17:17 | XRR_ITS ---
PROCEDURE INFORMATION: Exam: XR Lumbosacral Spine Exam date and time: 08/26/2024 6:53 PM Age: 68 years old Clinical indication: Injury or trauma; Fall; Blunt trauma (contusions or hematomas); Prior surgery; Surgery date: <1 month; Surgery type: Lumbar; Additional info: Back pain, fall TECHNIQUE: Imaging protocol: Radiologic exam of the lumbosacral spine. Views: 2 or 3 views. COMPARISON: CR XR lumbar spine min 4V [id number] 12/20/2023 9:55 AM FINDINGS: Bones/joints: Postoperative changes from posterior fusion and discectomy at L4-L5. There is normal alignment of the lumbar spine without definitive acute fracture. There is mild diffuse facet arthropathy. Mild anterior and marginal osteophyte formation throughout the lumbar spine. Soft tissues: This examination is limited by patient body habitus and poor penetration on the lateral view. XR/XR lumbar spine 2-3V* [id number] IMPRESSION: No acute abnormality.
[2024-08-26] MEDS: montelukast sodium 10 mg Tablet PO (17:27)
[2024-08-26 17:48] LABS: Glucose Point of Care 118 mg/dL (70-110)
[2024-08-26] MEDS: methocarbamol 500 mg Tablet PO (19:55)
[2024-08-26] MEDS: acetaminophen 325 mg Tablet 650 MG PO (19:55)
[2024-08-26 20:27] LABS: Glucose Point of Care 186 mg/dL (70-110)
--- NOTE | 2024-08-26 20:36 | PC.RESP ---
overnight pulse ox started on patient at 2034 on patient's baseline 3lpm nc
[2024-08-26] MEDS: mirtazapine 30 mg Tablet PO (20:39)
[2024-08-26] MEDS: gabapentin 300 mg Capsule 600 MG PO (20:39)
[2024-08-26] MEDS: lamoTRIgine 100 mg Tablet 200 MG PO (20:39)
[2024-08-27] VITALS (59 sets, daily range): BP systolic 48–137; BP diastolic 37–103; PULSE 60–81; RESP 13–29; TEMP 36.6–36.9; O2SAT 82–100
[2024-08-27] MEDS: ipratropium-albuterol 3 mL Neb INHALATION ×6 (00:50→20:40)
[2024-08-27] MEDS: pantoprazole 40 mg SDV IVP ×2 (00:57→13:56)
[2024-08-27] MEDS: piperacillin-tazobactam 3.375 GM in sodium chloride 0.9% (plus) 50 ML IV ×3 (00:57→17:49)
[2024-08-27 02:43] LABS: Basophils % 0.1 %; Eosinophils % 0.4 %; Hematocrit 41.3 % (37-53); Lymphocytes # 1.6 10^3/uL (0.8-4.8); Lymphocytes % 15.5 %; Mean Corpuscular HGB Conc 29.3 g/dL (30-55); Mean Corpuscular Hemoglobin 30.7 pg (27-33); Mean Corpuscular Volume 104.8 fl (82-101); Mean Platelet Volume 10.7 fL (7.4-10.4); Monocytes # 0.8 10^3/uL (0.2-0.9); Monocytes % 7.6 %; Neutrophils # 8.07 10^3/uL (1.8-7.7); Neutrophils % 76.2 %; Nucleated Red Blood Cells % 0 %; Platelet Count 155 10^3/cmm (157-399); Red Blood Count 3.94 10^6/uL (3.85-5.65); Red Cell Distribution Width 13.2 % (12.1-15.1); White Blood Count 10.58 10^3/uL (3.29-11.43)
[2024-08-27 03:03] LABS: Alanine Aminotransferase 8 U/L (0-41); Albumin Level 3.5 g/dL (3.5-5.2); Alkaline Phosphatase 57 U/L (40-130); Anion Gap 6.9 (5-19); Aspartate Amino Transferase 10 U/L (0-40); Blood Urea Nitrogen 62 mg/dL (8-23); Calcium 9.9 mg/dL (8.5-10.5); Chloride 94 mmol/L (98-107); Creatinine Clr Calc Pharmacy 38.5292; Glomerular Filtration Rate 33.2 mL/min (90-130); Glucose 111 mg/dL (65-115); Magnesium 2.1 mg/dL (1.7-2.3); Osmolality Calculated 306 mOsm/kg (285-295); Phosphorus 3.4 mg/dL (2.5-4.5); Potassium 3.9 mmol/L (3.5-5.1); Sodium 139 mmol/L (136-145); Total Bilirubin 0.4 mg/dL (0.15-1.2); Total Protein 5.5 g/dL (6.6-8.7)
--- NOTE | 2024-08-27 03:05 | PC.RESP ---
patient placed on bipap at 0302
[2024-08-27 03:08] LABS: Carbon Dioxide 42 mmol/L (22-29)
[2024-08-27 03:14] LABS: NT Pro B Type Natriuretic Pept 2853 pg/mL (0-125); Procalcitonin 0.16 ng/mL (0-0.5)
[2024-08-27] MEDS: linezolid premix 600 MG/300 ML PREMIX 300 MG IV ×2 (04:18→14:08)
--- NOTE | 2024-08-27 04:30 | PM.MISC ---
Miscellaneous Note Note: Chen by nurse at 4:30am. Patient has BP of 54/40smmHg as a manual BP. 500cc NS bolus over 15mins ordered.
[2024-08-27] MEDS: sodium chloride 0.9% 500 ML 999 ML IV (04:40)
--- NOTE | 2024-08-27 04:56 | PC.NURSE ---
0420- BP reading low on monitor, attempted to take another BP and then switched to opposite arm still with low BP readings. Obtained a manual BP with readings 54/40's. Called Dr. Oleary and received orders for 500 ml bolus. Patient alert and able to answer orientation questions appropriately. Denies any dizziness, SOB, or pain at this time.
--- NOTE | 2024-08-27 05:13 | XRR_ITS ---
PROCEDURE INFORMATION: Exam: XR Chest Exam date and time: 08/27/2024 5:17 AM Age: 68 years old Clinical indication: Shortness of breath; Additional info: Hypotension, decreased breath sounds TECHNIQUE: Imaging protocol: Radiologic exam of the chest. Views: 1 view. COMPARISON: CT chest con [id number] 08/25/2024 9:12 AM FINDINGS: Tubes, catheters and devices: [employer] pacemaker/defibrillator. Lungs: See Heart/Mediastinum finding. Pleural spaces: Unremarkable. No pleural effusion. No pneumothorax. Heart/Mediastinum: Moderate cardiomegaly. This is accentuated by the AP positioning. Hazy density at the left lung base caused by an effusion plus adjacent atelectasis or infiltrate. It is accentuated today compared to 2 days previously due to a poor inspiratory effort. Bones/joints: Unremarkable. XR/XR chest 1V portable [id number] IMPRESSION: No significant change.
[2024-08-27 05:19] LABS: Alveolar-Arterial Oxygen Gradi 22.3 mmHg (5-10); Arterial Blood Gas Hematocrit 34.9 % (42-52); Base Excess ABG 11.5 mmol/L (-2.0-2.0); Blood Gas Sample Site Brachial, left; Blood Gas Sample Type Arterial; Carboxyhemoglobin 1.2 %THgb (0.4-20.1); HCO3 ABG 40.9 mmol/L (22-26); HGB O2 Sat 95.4 % (95-100); Ionized Calcium Level - ABG 1.3 mmol/L (1.1-1.4); Methemoglobin 0.3 % (0.4-1.5); Oxygen Device BIPAP; Oxygen Saturation ABG 96.9; PO2 ABG 85.4 mmHg (80.0-100.0); PO2 FiO2 Ratio Arterial Blood 170; Potassium Level - ABG 3.3 mmol/L (3.5-5.0); Total Hemoglobin 11.4 g/dL (14-18)
--- NOTE | 2024-08-27 05:25 | PC.NURSE ---
0501- Called Dr. Ming Navarro regarding patient BP still 73/53 post 500 cc bolus, please see vital signs. Received orders to call a rapid. 0506- Rapid Respond called due to low BP. Current BP 84/53, ordered bolus started. ICU Charge, powerhouse electrician, and rest of rapid team at bedside. Dr. Lai called by powerhouse electrician and received orders to give 500 cc bolus. 0516- Dr. Marks at bedside, received orders to traansfer to ICU and start levophed.
--- NOTE | 2024-08-27 05:35 | PC.NURSE ---
Chata Carney called to update about patient condition and let her know that patient is in ICU. No questions at this time.
--- NOTE | 2024-08-27 05:38 | PC.NURSE ---
Verbal order from Dr. Marks to not give bolus of maintenance fluids
[2024-08-27] MEDS: pantoprazole DR 40 mg Tablet PO (05:46)
--- NOTE | 2024-08-27 06:18 | PC.NURSE ---
verbal order for IV levophed given by Dr. Marks
[2024-08-27] MEDS: norepinephrine 4 MG/250 ML BAG 7.5 MG IV (06:27)
[2024-08-27] MEDS: budesonide 0.5 mg/2 mL Neb INHALATION ×2 (07:33→20:40)
--- NOTE | 2024-08-27 08:26 | USCV_ITS ---
Jim Carney Age: 68 Gender: M : 1955 Exam Date: 08/27/2024 08:54 Ordering Phys: Neptali Dsouza MD Technologist: LOIS [place] [facility] [place]: ?EF BP: 114 / 77 HR: Rhythm: Sinus Technical Quality: Adequate MEASUREMENTS (Male / Female) Normal Values 2D ECHO LV Diastolic Diameter PLAX 7.2 cm 4.2 - 5.9 / 3.9 - 5.3 cm IVS Diastolic Thickness 1.2 cm 0.6 - 1.0 / 0.6 - 0.9 cm IVS Systolic Thickness 0.9 cm LVPW Diastolic Thickness 1.2 cm 0.6 - 1.0 / 0.6 - 0.9 cm LVPW Systolic Thickness 2.1 cm LVOT Diameter 2.0 cm LV Ejection Fraction 2D Teich 31.6 % LV Ejection Fraction MOD 4C 32.3 % LV Ejection Fraction MOD 2C 43.0 % LV Ejection Fraction 2C AL 42.2 % LA Diameter 4.6 cm RA Systolic Volume 4C AL 69.9 ml RA Systolic Volume 4C MOD 68.2 ml LA Sys Volume AL 80.6 cm cubed LA Sys Volume Index AL 35.4 cm cubed/m squared Aorta at Sinotubular Diameter 2.8 cm IVC Diameter 1.9 cm M-MODE LA Ao Ratio MM 1.6 AV Cusp Separation MM 1.6 cm FINDINGS Left Ventricle Right Ventricle Right Atrium Left Atrium Mitral Valve Aortic Valve Tricuspid Valve Pulmonic Valve Pericardium Aorta IVC CONCLUSIONS Left ventricle is dilated. LV systolic function is severely reduced with EF of 25-30%. Severe global hypokinesis. No significant change in LV systolic function compared to echocardiogram from 06/29/2024. Terry Jean MD (Electronically Signed) Final Date: 27 August 2024 12:15 S
--- NOTE | 2024-08-27 08:26 | USCV_ITS ---
Jim Carney Age: 68 Gender: M : 1955 Exam Date: 08/27/2024 09:10 Ordering Phys: Neptali Dsouza MD Technologist: LOIS [place] [facility] [place]: Swelling HISTORY: Lower extremity swelling. PROCEDURES: Venous duplex imaging was performed in bilateral lower extremities. The following venous structures were evaluated: common femoral vein, profunda vein, proximal portion of the greater saphenous vein, superficial femoral vein, and the popliteal vein. In addition, the posterior tibial and peroneal trunk were evaluated. Serial compression, augmentation maneuvers, and spectral Doppler flow evaluation were performed. FINDINGS: Normal 2-D Doppler and augmentation and compressibility throughout the lower extremity venous structures. Additional imaging through the proximal calf veins also reveals no thrombus. Limited evaluation of the greater saphenous vein is patent with no thrombus. CONCLUSIONS No DVT bilateral lower extremities. Technically limited exam. Dr. Dorita Perdue DO (Electronically Signed) Final Date: 27 August 2024 10:45 S
[2024-08-27] MEDS: lithium carbonate 300 mg Capsule PO ×2 (08:56→17:50)
[2024-08-27] MEDS: potassium chloride ER 20 mEq Tablet 40 MEQ PO (08:56)
[2024-08-27] MEDS: aspirin 81 mg EC Tablet PO (08:56)
[2024-08-27] MEDS: guaiFENesin 600 mg Tablet PO ×2 (08:57→17:50)
--- NOTE | 2024-08-27 09:23 | ECG_ITS ---
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 Measurements Intervals [place] Rate: 65 P: 0 ID: 0 QRS: 259 QRSD: 197 T: 96 QT: 453 QTc: 472 Interpretive Statements ELECTRONIC VENTRICULAR PACEMAKER Compared to ECG 08/21/2024 13:05:23 No significant changes Electronically Signed On 08-31-2024 18:30:45 CDT by Terry Jean M.D. [id number]
[2024-08-27 10:05] LABS: ABG PH Result 7.33 (7.35-7.45); Alveolar-Arterial Oxygen Gradi 13.2 mmHg (5-10); Arterial Blood Gas Hematocrit 39.5 % (42-52); Blood Gas Allen Test Pos; Blood Gas Operator Identificat MONRO; Blood Gas Sample Site Radial, right; Blood Gas Sample Type Arterial; Carboxyhemoglobin 1.1 %THgb (0.4-20.1); HGB O2 Sat 95.7 % (95-100); Ionized Calcium Level - ABG 1.4 mmol/L (1.1-1.4); Methemoglobin 1.1 % (0.4-1.5); Oxygen Device BIPAP; Oxygen Saturation ABG 97.9; PO2 ABG 92.1 mmHg (80.0-100.0); PO2 FiO2 Ratio Arterial Blood 230; Potassium Level - ABG 3.7 mmol/L (3.5-5.0); Total Hemoglobin 12.9 g/dL (14-18)
[2024-08-27 10:06] LABS: ABG PCO2 76.1 mmHg (35-45)
--- NOTE | 2024-08-27 10:36 | ECG_ITS ---
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: : 1955 Requested By: Neptali Dsouza Order Number: [id number] Reading MD: ABIOLA BATISTA Measurements Intervals [place] Rate: 65 P: -32 MN: 95 QRS: -67 QRSD: 150 T: 88 QT: 408 QTc: 427 Interpretive Statements ELECTRONIC VENTRICULAR PACEMAKER ST ELEVATION, CONSIDER ANTERIOR INJURY [MARKED ST ELEVATION W/O NORMALLY INFLECTED T-WAVE IN V2-V5] ACUTE MS Compared to ECG 08/27/2024 09:23:12 ST (T wave) deviation now present Myocardial infarct finding now present Electronically Signed On 09-01-2024 21:52:14 CDT by ABIOLA BATISTA [email or web address] [id number]
--- NOTE | 2024-08-27 10:38 | ECG_ITS ---
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
[2024-08-27 10:53] LABS: Lactic Sepsis W/Reflex 1.7 mmol/L (0.5-2.2)
[2024-08-27 11:02] LABS: Troponin(5th) Baseline 55 ng/L (0-15)
--- NOTE | 2024-08-27 11:10 | ECG_ITS ---
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
[2024-08-27 11:42] LABS: Glucose Point of Care 138 mg/dL (70-110)
[2024-08-27 11:42] LABS: Glucose Point of Care 132 mg/dL (70-110)
--- NOTE | 2024-08-27 12:02 | PC.OT ---
OT TREATMENT ATTEMPTED IN A.M. PATIENT ON BIPAP; NURSING AND RT REQUEST HOLD THIS MORNING.
[2024-08-27 12:33] LABS: Blood Urea Nitrogen 54 mg/dL (8-23); Calcium 9.9 mg/dL (8.5-10.5); Carbon Dioxide 40 mmol/L (22-29); Chloride 95 mmol/L (98-107); Creatinine Clr Calc Pharmacy 46.0509; Glomerular Filtration Rate 37.5 mL/min (90-130); Glucose 144 mg/dL (65-115); Osmolality Calculated 305 mOsm/kg (285-295); Sodium 139 mmol/L (136-145)
[2024-08-27 12:38] LABS: Troponin 5 2HR 83.46 ng/L (0-15)
[2024-08-27 12:44] LABS: Troponin 5 2HR Delta 28.46 ABS# (0-10)
--- NOTE | 2024-08-27 13:52 | P.CONIM_ITS ---
<Statement entered by Terry Jean M.D - 08/28/24 11:02> Patient was evaluated and cared for in conjunction with an advanced practice practitioner.? I personally examined the patient and reviewed the chart and all pertinent data including imaging, telemetry, and laboratory results.? I discussed the patient in detail with the advanced practice practitioner.? Please see? their note for complete consult note, testing results and agreed upon plan of care for the patient. GENERAL: Patient is alert, awake and oriented x3. On Bipap HEART: Regular S1 and S2 LUNGS: Diminished air entry bilaterally CENTRAL NERVOUS SYSTEM: Grossly nonfocal. EXTREMITIES: Lower extremities with 1+ edema Providers/Reason For Consult 2 Consulting Physician/Specialty*: Dr. Jean Reason for Consult*: systolic heart failure Attending Physician: Neptali Dsouza MD Primary Care Provider: Chanell Lee MD History of Present Illness History of Present Illness Jim Carney is a 68 year old male is a patient is well-known to our service. He has a history of CAD, ischemic cardiomyopathy status post ICD placement, chronic hypoxic respiratory failure, COPD, bipolar disorder, recently hospitalized and discharged July 03, 2024 after acute on chronic hypoxic and hypercapnic respiratory failure, ischemic cardiomyopathy, and CHF. He came in with lower extremity swelling cough and shortness of breath. He was diuresed as well as a parapneumonic effusion was drained from his left lung. He was treated with antibiotics. After being diuresed, he became hypotensive and required Levophed. This is similar to what happened on last admission. His most recent ABG today showed pO2 of 92.1 with respiratory acidosis. He had some dynamic EKG changes, but denies any recent chest pain. Echo was done that showed EF of 25-30% with normal diameter of the IVC. Currently, he does not appear to be in fluid overload. He is not displaying any signs of shock. Review of Systems 2 Narrative: Consitutional: denies fever, chills, body ache Eyes: Denies changes in vision Card: Denies chest pain, palpitations, irregular heart rhythm, edema, syncope, shortness of breath, orthopnea Resp: Denies shortness of breath, denies hemoptysis, denies cough GI: denies abdominal pain, denies nausea or voimting, denies blood in stool : denies blood in urine, denies dysuria Musc: Denies extremity pain, denies limited range of motion or recent injury Skin: Denies rash, lesions, or wounds, denies changes to skin color Neuro: Denies nubmness in extremities, h/a, s/s of stroke Sukhi: Denies easy bruiding/bleeding Medications/Allergies Home Medications ?Medication ?Instructions ?Recorded ?Confirmed ?Last Taken ?Type aspirin 81 mg tablet,delayed 81 mg PO DAILY #90 tabs 1 07/06/21 08/21/24 06/22/24 19:00 Rx release (Adult Low Dose Aspirin) gabapentin 300 mg capsule 900 mg PO BEDTIME 05/05/22 0 08/21/24 06/22/24 20:00 History lamotrigine 200 mg tablet 200 mg PO BEDTIME 05/05/22 0 08/21/24 06/22/24 20:00 History pantoprazole 40 mg tablet,delayed 40 mg PO QAM 2 08/21/24 06/23/24 08:00 History release guaifenesin 600 mg tablet, 600 mg PO BID 05/21/2407/2805/21/24 History extended release 12 hr (Mucinex) methocarbamol 500 mg tablet 500 mg PO Q12H PRN muscle spasms 05/21/24 08/21/24 Unknown History mecobalamin (vitamin B12) 1,000 1,000 mcg PO DAILY 08/21/24 08/21/24 History mcg chewable tablet melatonin 10 mg capsule 10 mg PO DAILY 06/18/2407/2806/22/24 20:00 History acetaminophen 500 mg tablet 1,000 mg PO Q6H PRN Fever Or Pain 06/24/24 08/21/24 Unknown History (Tylenol Extra Strength) mirtazapine 30 mg tablet 30 mg PO BEDTIME 06/24/2406/22/24 20:00 History quetiapine 100 mg tablet 100 mg PO BEDTIME PRN DEPRES OMAR 06/24/24 08/21/24 Unknown History sacubitril 24 mg-valsartan 26 mg 1 tab PO BID 06/24/24 08/21/24 06/23/24 07:00 History tablet (Entresto) furosemide 40 mg tablet 40 mg PO DAILY 30 days #30 t abs 07/03/24 08/21/24 06/23/24 Rx albuterol sulfate 90 mcg/actuation 2 puff inhalation Q ID PRN copd 08/21/24 08/21/24 Unknown History aerosol inhaler atorvastatin 80 mg tablet 80 mg PO QPM 08/21/24 Unknown History carvedilol 6.25 mg tablet 3.125 mg PO BID 08/21/24 Unknown History chlorthalidone 25 mg tablet 25 mg PO DAILY 08/21/24 Unknown History cholecalciferol (vitamin D3) 50 50 mcg PO DAILY 08/21/24 Unknown History mcg (2,000 unit) tablet (Vitamin D3) cyanocobalamin (vitamin B-12) 1,000 mcg PO DAILY 08/2108/21/24 Unknown History 1,000 mcg tablet fluticasone 250 mcg-salmeterol 50 1 inh inhalation BID 08/21/24 08/21/24 Unknown History mcg/dose blistr powdr for inhalation (Advair Diskus) lisinopril 10 mg tablet 10 mg PO DAILY 08/21/2407/28 Unknown History lithium carbonate 300 mg capsule 300 mg PO BID 5 08/21/24 Unknown History metformin 500 mg tablet,extended 500 mg PO DAILY 08/2108/21/24 Unknown History release 24 hr montelukast 10 mg tablet 10 mg PO QPM 08/21/24 Unknown History (Singulair) potassium chloride 10 mEq 10 meq PO DAILY 08/21/24 Unknown History tablet,extended release(part/cryst) tiotropium 2.5 mcg-olodaterol 2.5 2 inh inhalation CHADD LY 08/21/24 08/21/24 Unknown History mcg/actuation mist for inhalation (Stiolto Respimat) Allergies Allergy/AdvReac Type Severity Reaction Status Date / Time No Known Allergies Allergy Verified 07/08/24 15:01 Current Medications Generic Name Dose Route Start Last Admin Trade Name Freq PRN Reason Stop Dose Admin Acetaminophen 650 mg 08/21/24 13:04 08/26/24 19:55 Acetaminophen 325 Mg Tablet PO 650 mg Q6H PRN Administration Mild/Mod Pain Or Temp >/= 101 Albuterol/Ipratropium 3 ml 08/21/24 16:00 08/27/24 11:17 Ipratropium-Albuterol 3 Ml Neb INHALATION 3 ml Q4H.RESPIRATORY MARYANN Administration Aspirin 81 mg 08/24/24 09:00 08/27/24 08:56 Aspirin 81 Mg Ec Tablet PO 81 mg DAILY MARYANN Administration Budesonide 0.5 mg 08/23/24 23:10 08/27/24 07:33 Budesonide 0.5 Mg/2 Ml Neb INHALATION 0.5 mg BID.RESPIRATORY MARYANN Administration Enoxaparin Sodium 40 mg 08/21/24 13:15 08/26/24 13:19 Enoxaparin 40 Mg/0.4 Ml Syringe SUBCUT 40 mg Q24H MARYANN Administration Gabapentin 600 mg 08/23/24 21:00 08/26/24 20:39 Gabapentin 300 Mg Capsule PO 600 mg BEDTIME MARYANN Administration Guaifenesin 600 mg 08/24/24 09:00 08/27/24 08:57 Guaifenesin 600 Mg Tablet PO 600 mg BID MARYANN Administration Piperacillin Sod/Tazobactam 50 mls @ 12.5 mls/hr 08/21/24 17:30 08/27/24 08:57 Sod 3.375 gm/ Sodium Chloride IV 12.5 mls/hr Q8H MARYANN Administration Protocol Linezolid 600 mg in 300 mls @ 300 mls/hr 08/21/24 15:15 08/27/24 06:04 Zyvox Premix IV Infused Q12H MARYANN Infusion Protocol Norepinephrine Bitartrate 4 mg in 250 mls @ 0 mls/hr 08/27/24 06:30 08/27/24 06:39 Levophed IV 4 mcg/min .Q0M MARYANN 15 mls/hr Titration Protocol Per Protocol Insulin Human Lispro 0 unit 08/25/24 21:00 08/27/24 11:34 Insulin Lispro 100 Unit/1 Ml SUBCUT Not Given WM&BEDTIME MARYANN Protocol Lamotrigine 200 mg 08/23/24 21:00 08/26/24 20:39 Lamotrigine 100 Mg Tablet PO 200 mg BEDTIME MARYANN Administration [place] Carbonate 300 mg 08/24/24 09:00 08/27/24 08:56 [place] Carbonate 300 Mg Capsule PO 300 mg BID MARYANN Administration Methocarbamol 500 mg 08/23/24 18:34 08/26/24 19:55 Methocarbamol 500 Mg Tablet PO 500 mg Q12H PRN Administration muscle spasms Mirtazapine 30 mg 08/23/24 21:00 08/26/24 20:39 Mirtazapine 30 Mg Tablet PO 30 mg BEDTIME MARYANN Administration Montelukast Sodium 10 mg 08/24/24 18:00 08/26/24 17:27 Montelukast Sodium 10 Mg Tablet PO 10 mg QPM MARYANN Administration Ondansetron HCl 4 mg 08/21/24 13:04 08/23/24 20:11 Ondansetron 2 Mg/Ml Sdv 2 Ml IVP 4 mg Q8H PRN Administration vomiting, or N/V if npo Pantoprazole Sodium 40 mg 08/21/24 13:15 08/27/24 00:57 Pantoprazole 40 Mg Sdv IVP 40 mg Q12H MARYANN Administration Pantoprazole Sodium 40 mg 08/24/24 06:00 08/27/24 05:[address] 40 Mg Tablet PO 40 mg QAM MARYANN Administration Potassium Chloride 40 meq 08/26/24 13:00 08/27/24 08:56 Potassium Chloride Er 20 Meq Tablet PO 40 meq DAILY MARYANN Administration PFSH Acute 2 PFSH: Medical History Osteoporosis without pathological fracture Bipolar disorder, unspecified Benign prostatic hyperplasia without lower urinary tract symptoms Gastritis, unspecified, without bleeding Gastrointestinal stromal tumor of stomach Low back pain, unspecified Umbilical hernia without obstruction or gangrene Hyperparathyroidism s/p parathyroid tumor removal Depression Bipolar 1 disorder Gastrointestinal stromal tumor s/p surgery in 2019 in [place]. No chemo or radiation needed. 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 Hyperlipidemia, unspecified Surgical History History of lumbar laminectomy in 2013 in [place] Abdominal aortic aneurysm (AAA) without rupture s/p surgery in 2018 or 2019 in [place] Family History Father Heart attack Social History Smoking and tobacco/nicotine status: former use of tobacco/nicotine (2022) Alcohol intake: never Substance/Drug Use: current Vitals/I&O/Wt Last Vital Signs Temp 98.5 F 08/27/24 01:08 Pulse 66 08/27/24 13:18 Resp 19 H 08/27/24 12:00 BP 116/72 08/27/24 12:00 Pulse Ox 96 08/27/24 13:18 O2 Del Method BiPAP 08/27/24 11:18 O2 Flow Rate 3 08/27/24 01:08 FiO2 35 08/27/24 13:18 08/26/24 08/27/24 08/27/24 22:59 06:59 14:59 Intake Total 540 / 1190 901.5 / 2091.5 240 / 240 Output Total 650 / 650 200 / 850 1200 / 1200 Balance -110 / 540 701.5 / 1241.5 -960 / -960 Weight last 48 hrs Weight 251 lb 5.231 oz Weight 218 lb 4.122 oz Physical Exam 2 Narrative: General: No apparent distress, healthy appearing, well nourished Muskuloskeletal: Full ROM Lymphatic: no lymphedema noted Respiratory: Normal respiratory effort, clear to auscultation bilaterally throughout all lung aguayo, no use of accessory muscles Cardio: No JVD, regular rate, regular rhythm, S1 S2 normal, no murmurs, peripheral pulses 2+ radial palpated bilaterally GI: Normal to inspection, nondistended Extremities: Full ROM, normal, normal capillary refill, no cyanosis or edema Neuro: Alert and oriented x4, no focal motor deficits Psych: Affect normal, denies suicidal ideation, mental status grossly normal Skin: No rashes or lesions noted, no wounds, lower extremities are warm with 2 second capillary refill bilaterally Urinary Catheter Management: Cunningham: Cath Placed During This Visit: yes Reason for Continuing Indwelling Catheter: Accurate Measurement of Urinary Output in Critically Ill Patients Urinary Catheter Date of Insertion: 08/21/24 Urinary Catheter Time of Insertion: 09:46 Data 08/27/24 02:32 08/27/24 12:06 Micro: Microbiology 08/21/24 09:22 Blood Culture - Final Blood NO GROWTH AFTER 5 DAYS 08/21/24 09:17 Blood Culture - Final Blood NO GROWTH AFTER 5 DAYS 08/21/24 14:30 Gram Stain - Final Pleural Fluid Anaerobic Culture - Preliminary Body Fluid Culture - Final A&P Assessment and plan (1) Acute on chronic hypoxic respiratory failure: (2) Encephalopathy acute: (3) Pneumonia: (4) Acute on chronic systolic CHF (congestive heart failure), NYHA class 4: Plan At this time, patient does not appear to be in fluid overload. Agree with holding diuretics, as he is well compensated. Hypotension most likely due to diuresis, as patient does tend to have difficulty with fluid balance and has had similar instances in the past to this, but will continue to monitor for s/s of cardiogenic shock. For now, recommend continue holding diuretics, continue levophed and wean as tolerated. Echo showed EF is close to the same. He appears well compensated. Thank you, Dr. Dsouza, for allowing us to care for this very pleasant 68 year old gentleman. PDMP PDMP Reviewed: Not Reviewed Consult Attestations 2 Medical Necessity Statement: Deferred to primary. Coding Level of Care Code Acute Code for [facility] Fwd Diagnoses Acute on chronic hypoxic respiratory failure J96.21 Encephalopathy acute G93.40 Pneumonia J18.9 Acute on chronic systolic CHF (congestive heart failure), NYHA class 4 I50.23
[2024-08-27] MEDS: enoxaparin 40 mg/0.4 mL Syringe SUBCUT (13:56)
[2024-08-27] MEDS: sodium chloride 0.9% 1,000 ML 30 ML IV (13:56)
--- NOTE | 2024-08-27 14:22 | P.PN_ITS ---
Subjective 2 Subjective: - Patient was seen this morning -He tells me that yesterday when he was in cardiac stepdown unit, his remote had fallen, so he bended over to grab it when he fell to the floor -He denies any significant pain complain ts -He denies any headache, blurry vision, no nausea, no vomiting, no chest pain, no shortness of breath -Denies feeling lightheaded or dizzy -Denies any abdominal pain, denies any f lank pain Vitals/I&O/Wt Last Vital Signs Temp 98.5 F 08/27/24 01:08 Pulse 66 08/27/24 13:18 Resp 19 H 08/27/24 12:00 BP 116/72 08/27/24 12:00 Pulse Ox 96 08/27/24 13:18 O2 Del Method BiPAP 08/27/24 11:18 O2 Flow Rate 3 08/27/24 01:08 FiO2 35 08/27/24 13:18 08/26/24 08/27/24 08/27/24 22:59 06:59 14:59 Intake Total 540 / 1190 901.5 / 2091.5 240 / 240 Output Total 650 / 650 200 / 850 1200 / 1200 Balance -110 / 540 701.5 / 1241.5 -960 / -960 Weight last 48 hrs Weight 114 kg Weight 99 kg Physical Exam 2 Const: COMMON NORMALS: no acute distress and patient oriented x3 Resp: COMMON NORMALS: normal respiratory effort, No retractions, No use of accessory muscles and clear to auscultation bilaterally AUSCULTATION: clear to auscultation bilaterally Cardio: COMMON NORMALS: regular rate, regular rhythm, S1 normal heart sound present and S2 normal heart sound present RATE: regular rate RHYTHM: r egular rhythm HEART SOUNDS: S1 normal heart sound present and S2 normal heart sound present GI: COMMON NORMALS: Normal to inspection, nondistended, normoactive bowel sounds present and non-tender Extremity: COMMON NORMALS: no pedal edema Neuro: COMMON NORMALS: patient oriented x3 Psych: COMMON NORMALS: mental status grossly normal Urinary Catheter Management: Cunningham: Cath Placed During This Visit: yes Reason for Continuing Indwelling Catheter: Accurate Measurement of Urinary Output in Critically Ill Patients Urinary Catheter Date of Insertion: 08/21/24 Urinary Catheter Time of Insertion: 09:46 Sepsis: Is patient septic: No Focused sepsis exam performed: Yes Date exam was performed: 08/27/24 Time exam was performed: 08:00 Data 08/27/24 02:32 08/27/24 12:06 Micro: Microbiology 08/21/24 09:22 Blood Culture - Final Blood NO GROWTH AFTER 5 DAYS 08/21/24 09:17 Blood Culture - Final Blood NO GROWTH AFTER 5 DAYS A&P Assessment and plan (1) Acute on chronic hypoxic respiratory failure: -Acute hypoxic hypercarbic respiratory failure, pCO2 95 -Secondary to healthcare associated pneumonia with parapneumonic effusion -Systolic CHF, fluid overload -COPD exacerbation -Extubated 08/23/2024 -Currently on BiPAP as needed during the day, scheduled during the night -Now with shock Plan -Continued BiPAP during the day, can switch to as needed during the day, scheduled during the night -Creatinine 1.8, hold diuresis due to hypotension -Continue Zyvox -Continue Zosyn -prednisone 40 mg daily -Shock requiring Levophed at 6 -Monitor respiratory status closely -DuoNeb -Budesonide -Full code -Lovenox for DVT prophylaxis -Patient has chronic hypercarbic respiratory failure, likely multifactorial factorial from COPD, CHF, -I do the patient would clinically benefit from BiPAP, decreased risk of recurrent hospitalization, -Will order overnight pulse oximeter to see if he can qualify -But based upon his admission CO2 of 95, and CO2 improvement to 60.5, and prior admissions for hypercarbic respiratory failure he would likely benefit from BiPAP therapy at home (2) Encephalopathy acute: - Monitor mentation closely, resolving (3) Pneumonia: -Parapneumonic effusion -1 L drained by thoracentesis -Culture or so far no growth -Gram stain no organisms, no white blood cells -Blood cultures so far negative -Pathology so far showing histiocytes, reactive mesothelial cells -pH 7.2, LDH is 200, glucose is 220 -Overall not suggestive of empyema -Repeat CT chest shows bilateral pleural effusions (4) Acute on chronic systolic CHF (congestive heart failure), NYHA class 4: -History of EF 25 to 30% (5) Shock: - Likely from systolic CHF -Likely from diuresis -Lactic acid 1.7, CRP and Pro-Kye within normal limits -No significant drop in hemoglobin, no abdominal pain, no bloody black stools, no significant evidence of hematoma on examination related to fall -Baseline troponin 55, no chest pain -Currently on Levophed at 6, maintain MAP around 65 -Repeat venous ultrasound -Repeat troponin series -Repeat cardiac echo Plan Fall -No loss of consciousness -Head CT, hip and lumbar x-rays no acute findings -Keep on bedrest ROCKY on CKD -Creatinine down to 1.8, good urine output 2049 -Secondary to diuresis -Secondary to hypotension -Monitor urine output, creatinine -Gentle IV hydration Hypomagnesemia: Monitor Chronic respiratory failure: Chronically on 3 L nasal cannula oxygen, with underlying congestive heart failure, COPD. COPD: As above Anxiety: Consider benzodiazepine as needed for anxiety/air hunger. History of gastritis: PPI CAD: Continue aspirin, statin, hold beta-carol for now due to hypotension Plan for today patient moved to ICU, requiring Levophed due to shock, holding IV diuresis, ROCKY, monitor clinically, given elevated troponins consult cardiology -Patient's EKG shows ST elevation in leads II 3, he was asymptomatic, no chest pain, baseline troponin 55 repeat EKG shows no signs persistent ST elevations, cardiology consulted PDMP PDMP Reviewed: Not Reviewed Attestations 2 Medical Necessity Statement*: Patient requires hospitalization for hypotension requiring Levophed, systolic CHF, ROCKY, shock, pneumonia Coding Level of Care Code Critical Care >/= 30 minutes Critical care time (in minutes): 45 The high probability of a clinically significant, sudden or life threatening deterioration, as referenced in this documentation, required my full and direct attention, intervention and personal management. The critical care time shown is in addition to time spent performing any reported separately billable procedures and includes the following: [x] Data and vital sign review and interpretation [x ] Patient assessment, examination and intervention [x] Medication orders and management [x] Patient/Family updates as able [x] Care Coordination and Documentation. Diagnoses Acute on chronic hypoxic respiratory failure J96.21 Encephalopathy acute G93.40 Pneumonia J18.9 Acute on chronic systolic CHF (congestive heart failure), NYHA class 4 I50.23 Shock R57.9
--- NOTE | 2024-08-27 14:59 | PC.OT ---
OT TREATMENT ATTEMPTED TWICE TODAY; PATIENT ON BIPAP AT BOTH TIMES AND NURING AND RT REQUEST HOLD FOR TODAY
[2024-08-27 16:51] LABS: Troponin 5 6HR 82.42 ng/L (0-15)
[2024-08-27 16:54] LABS: Troponin 5 6HR Delta 27.42 ng/L (0-12)
[2024-08-27 17:37] LABS: Glucose Point of Care 249 mg/dL (70-110)
[2024-08-27] MEDS: montelukast sodium 10 mg Tablet PO (17:50)
[2024-08-27] MEDS: insulin lispro 100 unit/1 mL SUBCUT ×2 (17:50→21:37)
[2024-08-27] MEDS: norepinephrine 4 MG/250 ML BAG 22.5 MG IV (17:54)
[2024-08-27] MEDS: gabapentin 300 mg Capsule 600 MG PO (20:11)
[2024-08-27] MEDS: lamoTRIgine 100 mg Tablet 200 MG PO (20:11)
[2024-08-27] MEDS: mirtazapine 30 mg Tablet PO (20:12)
[2024-08-27] MEDS: acetaminophen 325 mg Tablet 650 MG PO (20:12)
[2024-08-27 21:52] LABS: Glucose Point of Care 189 mg/dL (70-110)
[2024-08-28] VITALS (100 sets, daily range): BP systolic 63–173; BP diastolic 37–126; PULSE 60–96; RESP 12–28; TEMP 36.5–36.6; O2SAT 91–100
[2024-08-28] MEDS: ipratropium-albuterol 3 mL Neb INHALATION ×6 (00:30→20:21)
[2024-08-28] MEDS: piperacillin-tazobactam 3.375 GM in sodium chloride 0.9% (plus) 50 ML IV ×3 (01:23→17:23)
[2024-08-28] MEDS: pantoprazole 40 mg SDV IVP ×2 (01:23→12:50)
[2024-08-28] MEDS: linezolid premix 600 MG/300 ML PREMIX 300 MG IV (03:18)
[2024-08-28 04:47] LABS: Basophils % 0.2 %; Eosinophils # 0.2 10^3/uL (0.0-0.8); Eosinophils % 1.4 %; Hematocrit 38.2 % (37-53); Lymphocytes # 1.8 10^3/uL (0.8-4.8); Lymphocytes % 14.9 %; Mean Corpuscular HGB Conc 29.6 g/dL (30-55); Mean Corpuscular Hemoglobin 30.7 pg (27-33); Mean Corpuscular Volume 103.8 fl (82-101); Monocytes # 0.8 10^3/uL (0.2-0.9); Monocytes % 6.9 %; Neutrophils # 9.15 10^3/uL (1.8-7.7); Neutrophils % 76.2 %; Nucleated Red Blood Cells % 0 %; Platelet Count 181 10^3/cmm (157-399); Red Blood Count 3.68 10^6/uL (3.85-5.65); Red Cell Distribution Width 13.2 % (12.1-15.1); White Blood Count 12.01 10^3/uL (3.29-11.43)
[2024-08-28] MEDS: norepinephrine 4 MG/250 ML BAG 30 MG IV (05:01)
[2024-08-28 05:12] LABS: Alanine Aminotransferase 8 U/L (0-41); Albumin Level 3.3 g/dL (3.5-5.2); Alkaline Phosphatase 64 U/L (40-130); Anion Gap 9.7 (5-19); Aspartate Amino Transferase 7 U/L (0-40); Blood Urea Nitrogen 47 mg/dL (8-23); Calcium 9.9 mg/dL (8.5-10.5); Carbon Dioxide 37 mmol/L (22-29); Chloride 98 mmol/L (98-107); Creatinine Clr Calc Pharmacy 51.8073; Globulin 1.8 g/dL (1.3-4.6); Glomerular Filtration Rate 42.9 mL/min (90-130); Glucose 203 mg/dL (65-115); Magnesium 2.1 mg/dL (1.7-2.3); Osmolality Calculated 310 mOsm/kg (285-295); Potassium 3.7 mmol/L (3.5-5.1); Sodium 141 mmol/L (136-145); Total Bilirubin 0.5 mg/dL (0.15-1.2); Total Protein 5.1 g/dL (6.6-8.7)
[2024-08-28 05:13] LABS: Lactate (Lactic Acid level) 1.4 mmol/L (0.5-2.2)
[2024-08-28 05:26] LABS: NT Pro B Type Natriuretic Pept 1243 pg/mL (0-125)
[2024-08-28] MEDS: pantoprazole DR 40 mg Tablet PO (06:05)
[2024-08-28] MEDS: budesonide 0.5 mg/2 mL Neb INHALATION ×2 (07:59→20:21)
[2024-08-28 08:16] LABS: Glucose Point of Care 199 mg/dL (70-110)
[2024-08-28] MEDS: insulin lispro 100 unit/1 mL SUBCUT ×4 (09:12→21:19)
[2024-08-28] MEDS: guaiFENesin 600 mg Tablet PO ×2 (09:14→17:23)
[2024-08-28] MEDS: aspirin 81 mg EC Tablet PO (09:14)
[2024-08-28] MEDS: potassium chloride ER 20 mEq Tablet 40 MEQ PO (09:14)
[2024-08-28] MEDS: lithium carbonate 300 mg Capsule PO ×2 (09:14→17:23)
--- NOTE | 2024-08-28 11:04 | P.PN_ITS ---
<Statement entered by Terry Jean M.D - 08/29/24 12:47> Patient was cared for in conjunction with an advanced practice practitioner.? I reviewed the chart and all pertinent data including imaging, telemetry, and laboratory results.? I discussed the patient in detail with the advanced practice practitioner.? Please see their note for progress note, testing results and agreed upon plan of care for the patient. Subjective 2 Subjective: Patient states he is doing well overall without chest pain or significant shortness of breath. He appears well compensated. Creatinine has slightly improved to 1.6. They are trying to wean him off of his Levophed. Vitals/I&O/Wt Last Vital Signs Temp 97.9 F 08/28/24 06:01 Pulse 60 08/28/24 08:02 Resp 20 H 08/28/24 07:45 BP 123/67 08/28/24 06:31 Pulse Ox 99 08/28/24 07:45 O2 Del Method Nasal Cannula 08/28/24 07:45 O2 Flow Rate 3 08/28/24 07:45 FiO2 35 08/28/24 04:30 08/27/24 08/28/24 08/28/24 22:59 06:59 14:59 Intake Total 612.50 / 902.50 1414.25 / 2316.75 178.125 / 178.125 Output Total 900 / 2100 350 / 2450 Balance -287.50 / -1197.50 1064.25 / -133.25 178.125 / 178.125 Weight last 48 hrs Weight 116 lb Weight 251 lb 5.231 oz Physical Exam 2 Narrative: General: No apparent distress, healthy appearing, well nourished Muskuloskeletal: Full ROM Lymphatic: no lymphedema noted Respiratory: Normal respiratory effort, clear to auscultation bilaterally throughout all lung aguayo, no use of accessory muscles Cardio: No JVD, regular rate, regular rhythm, S1 S2 normal, no murmurs, peripheral pulses 2+ radial palpated bilaterally GI: Normal to inspection, nondistended Extremities: Full ROM, normal, normal capillary refill, no cyanosis or edema Neuro: Alert and oriented x4, no focal motor deficits Psych: Affect normal, denies suicidal ideation, mental status grossly normal Skin: No rashes or lesions noted, no wounds, lower extremities are warm with 2 second capillary refill bilaterally Urinary Catheter Management: Cunningham: Cath Placed During This Visit: yes Reason for Continuing Indwelling Catheter: Accurate Measurement of Urinary Output in Critically Ill Patients Urinary Catheter Date of Insertion: 08/21/24 Urinary Catheter Time of Insertion: 09:46 Data 08/28/24 04:18 08/28/24 04:18 Micro: Microbiology 08/21/24 14:30 Gram Stain - Final Pleural Fluid Anaerobic Culture - Preliminary Body Fluid Culture - Final A&P Assessment and plan (1) Acute on chronic hypoxic respiratory failure: (2) Encephalopathy acute: (3) Pneumonia: (4) Acute on chronic systolic CHF (congestive heart failure), NYHA class 4: Plan Patient appears well compensated. Continue trying to wean off of Levophed. From a heart failure standpoint he appears well compensated. Will continue current care and monitor I&O as well as for signs or symptoms of further decompensated heart failure. PDMP PDMP Reviewed: Not Reviewed Attestations 2 Medical Necessity Statement*: deferred to primary care Coding Level [facility] Care Code [facility] Diagnoses Acute on chronic hypoxic respiratory failure J96.21 Encephalopathy acute G93.40 Pneumonia J18.9 Acute on chronic systolic CHF (congestive heart failure), NYHA class 4 I50.23
[2024-08-28 11:20] LABS: Glucose Point of Care 219 mg/dL (70-110)
--- NOTE | 2024-08-28 12:28 | PC.NURSE ---
brought in fast food from [employer] for pt. In bedside report this am, it was reported she brought [employer] dinner for pt yesterday.
[2024-08-28] MEDS: enoxaparin 40 mg/0.4 mL Syringe SUBCUT (12:50)
[2024-08-28] MEDS: polyethylene glycol 3350 Pkt 17 gm PO (13:20)
--- NOTE | 2024-08-28 14:50 | P.PN_ITS ---
Subjective 2 Subjective: Patient was seen this morning, he is alert oriented x 3, following all commands, currently 3 L, denies any lightheadedness, no dizziness, denies any chest pain, no palpitations Vitals/I&O/Wt Last Vital Signs Temp 97.8 F 08/28/24 07:15 Pulse 60 08/28/24 13:30 Resp 17 08/28/24 11:21 BP 124/73 08/28/24 11:00 Pulse Ox 98 08/28/24 11:21 O2 Del Method Nasal Cannula 08/28/24 11:21 O2 Flow Rate 3 08/28/24 11:21 FiO2 35 08/28/24 04:30 08/27/24 08/28/24 08/28/24 22:59 06:59 14:59 Intake Total 612.50 / 902.50 1414.25 / 2316.75 1465.625 / 1465.625 Output Total 900 / 2100 350 / 2450 Balance -287.50 / -1197.50 1064.25 / -133.25 1465.625 / 1465.625 Weight last 48 hrs Weight 52.617 kg Weight 114 kg Physical Exam 2 Const: COMMON NORMALS: no acute distress and patient oriented x3 Resp: COMMON NORMALS: normal respiratory effort, No retractions, No use of accessory muscles and clear to auscultation bilaterally AUSCULTATION: clear to auscultation bilaterally Cardio: COMMON NORMALS: regular rate, regular rhythm, S1 normal heart sound present and S2 normal heart sound present RATE: regular rate RHYTHM: r egular rhythm HEART SOUNDS: S1 normal heart sound present and S2 normal heart sound present GI: COMMON NORMALS: Normal to inspection, nondistended, normoactive bowel sounds present and non-tender Extremity: COMMON NORMALS: no pedal edema Neuro: COMMON NORMALS: patient oriented x3 Psych: COMMON NORMALS: mental status grossly normal Urinary Catheter Management: Cunningham: Cath Placed During This Visit: yes Reason for Continuing Indwelling Catheter: Accurate Measurement of Urinary Output in Critically Ill Patients Urinary Catheter Date of Insertion: 08/21/24 Urinary Catheter Time of Insertion: 09:46 Data 08/28/24 04:18 08/28/24 04:18 Micro: Microbiology 08/21/24 14:30 Gram Stain - Final Pleural Fluid Anaerobic Culture - Preliminary Body Fluid Culture - Final A&P Assessment and plan (1) Acute on chronic hypoxic respiratory failure: -Acute hypoxic hypercarbic respiratory failure, pCO2 95 -Secondary to healthcare associated pneumonia with parapneumonic effusion -Systolic CHF, fluid overload -COPD exacerbation -Extubated 08/23/2024 -Currently on BiPAP as needed during the day, scheduled during the night -Now with shock Plan -Continued BiPAP during the day, can switch to as needed during the day, scheduled during the night -Creatinine 1.8, hold diuresis due to hypotension -Continue Zyvox -Continue Zosyn -prednisone 40 mg daily -Shock requiring Levophed at 6 -Monitor respiratory status closely -DuoNeb -Budesonide -Full code -Lovenox for DVT prophylaxis -Patient has chronic hypercarbic respiratory failure, likely multifactorial factorial from COPD, CHF, -I do the patient would clinically benefit from BiPAP, decreased risk of recurrent hospitalization, -Will order overnight pulse oximeter to see if he can qualify -But based upon his admission CO2 of 95, and CO2 improvement to 60.5, and prior admissions for hypercarbic respiratory failure he would likely benefit from BiPAP therapy at home (2) Encephalopathy acute: - Monitor mentation closely, resolving (3) Pneumonia: -Parapneumonic effusion -1 L drained by thoracentesis -Culture or so far no growth -Gram stain no organisms, no white blood cells -Blood cultures so far negative -Pathology so far showing histiocytes, reactive mesothelial cells -pH 7.2, LDH is 200, glucose is 220 -Overall not suggestive of empyema -Repeat CT chest shows bilateral pleural effusions (4) Acute on chronic systolic CHF (congestive heart failure), NYHA class 4: -History of EF 25 to 30% (5) Shock: - Likely from systolic CHF -Likely from diuresis -Lactic acid 1.7, CRP and Pro-Kye within normal limits -No significant drop in hemoglobin, no abdominal pain, no bloody black stools, no significant evidence of hematoma on examination related to fall -Baseline troponin 55, no chest pain -Currently on Levophed at 6, maintain MAP around 65 -Repeat venous ultrasound -Repeat troponin series -Repeat cardiac echo Plan Fall -No loss of consciousness -Head CT, hip and lumbar x-rays no acute findings -Keep on bedrest ROCKY on CKD -Creatinine down to 1.8, good urine output 2049 -Secondary to diuresis -Secondary to hypotension -Monitor urine output, creatinine -Gentle IV hydration Hypomagnesemia: Monitor Chronic respiratory failure: Chronically on 3 L nasal cannula oxygen, with underlying congestive heart failure, COPD. COPD: As above Anxiety: Consider benzodiazepine as needed for anxiety/air hunger. History of gastritis: PPI CAD: Continue aspirin, statin, hold beta-carol for now due to hypotension Plan for today continue ICU level monitoring, remains on 6 of Levophed, monitor urine output monitor creatinine, continue to hold Lasix, continue IV antibiotics PDMP PDMP Reviewed: Not Reviewed Attestations 2 Medical Necessity Statement*: Patient requires hospitalization for cardiogenic shock, requiring IV Levophed, holding Lasix holding diuresis, monitoring clinically Diagnoses Acute on chronic hypoxic respiratory failure J96.21 Encephalopathy acute G93.40 Pneumonia J18.9 Acute on chronic systolic CHF (congestive heart failure), NYHA class 4 I50.23 Shock R57.9
[2024-08-28] MEDS: linezolid premix 600 MG/300 ML PREMIX 200 MG IV (15:08)
[2024-08-28 17:09] LABS: Glucose Point of Care 156 mg/dL (70-110)
[2024-08-28] MEDS: montelukast sodium 10 mg Tablet PO (17:23)
--- NOTE | 2024-08-28 18:35 | PC.NURSE ---
brought in [facility] for pt tonight for dinner.
[2024-08-28 21:15] LABS: Glucose Point of Care 199 mg/dL (70-110)
[2024-08-28] MEDS: mirtazapine 30 mg Tablet PO (21:16)
[2024-08-28] MEDS: lamoTRIgine 100 mg Tablet 200 MG PO (21:16)
[2024-08-28] MEDS: gabapentin 300 mg Capsule 600 MG PO (21:16)
[2024-08-29] VITALS (54 sets, daily range): BP systolic 84–137; BP diastolic 57–81; PULSE 60–89; RESP 14–32; TEMP 36.6–37.1; O2SAT 90–100
[2024-08-29] MEDS: ipratropium-albuterol 3 mL Neb INHALATION ×5 (00:33→21:17)
[2024-08-29] MEDS: piperacillin-tazobactam 3.375 GM in sodium chloride 0.9% (plus) 50 ML IV ×2 (01:42→08:37)
[2024-08-29] MEDS: pantoprazole 40 mg SDV IVP ×2 (01:43→12:31)
[2024-08-29] MEDS: linezolid premix 600 MG/300 ML PREMIX 200 MG IV (03:13)
[2024-08-29 04:08] LABS: Basophils % 0.1 %; Eosinophils # 0.1 10^3/uL (0.0-0.8); Hematocrit 34.9 % (37-53); Lymphocytes # 1.8 10^3/uL (0.8-4.8); Mean Corpuscular HGB Conc 29.5 g/dL (30-55); Mean Corpuscular Hemoglobin 30.7 pg (27-33); Mean Corpuscular Volume 103.9 fl (82-101); Mean Platelet Volume 11.5 fL (7.4-10.4); Monocytes # 0.6 10^3/uL (0.2-0.9); Monocytes % 6.4 %; Neutrophils # 6.99 10^3/uL (1.8-7.7); Neutrophils % 73.2 %; Nucleated Red Blood Cells % 0 %; Platelet Count 135 10^3/cmm (157-399); Red Blood Count 3.36 10^6/uL (3.85-5.65); Red Cell Distribution Width 13.2 % (12.1-15.1); White Blood Count 9.55 10^3/uL (3.29-11.43)
[2024-08-29 04:28] LABS: Lactate (Lactic Acid level) 1.4 mmol/L (0.5-2.2)
[2024-08-29 04:35] LABS: Alanine Aminotransferase 9 U/L (0-41); Albumin Level 3.4 g/dL (3.5-5.2); Alkaline Phosphatase 53 U/L (40-130); Anion Gap 8.5 (5-19); Aspartate Amino Transferase 9 U/L (0-40); Blood Urea Nitrogen 31 mg/dL (8-23); Carbon Dioxide 35 mmol/L (22-29); Chloride 102 mmol/L (98-107); Creatinine Clr Calc Pharmacy 39.3503; Globulin 1.7 g/dL (1.3-4.6); Glomerular Filtration Rate 54.6 mL/min (90-130); Glucose 124 mg/dL (65-115); Osmolality Calculated 300 mOsm/kg (285-295); Potassium 4.5 mmol/L (3.5-5.1); Sodium 141 mmol/L (136-145); Total Bilirubin 0.5 mg/dL (0.15-1.2); Total Protein 5.1 g/dL (6.6-8.7)
[2024-08-29 04:46] LABS: NT Pro B Type Natriuretic Pept 1144 pg/mL (0-125)
[2024-08-29] MEDS: pantoprazole DR 40 mg Tablet PO (05:14)
[2024-08-29 07:35] LABS: Glucose Point of Care 119 mg/dL (70-110)
[2024-08-29] MEDS: budesonide 0.5 mg/2 mL Neb INHALATION ×2 (07:39→21:17)
[2024-08-29] MEDS: lithium carbonate 300 mg Capsule PO ×2 (08:37→17:01)
[2024-08-29] MEDS: potassium chloride ER 20 mEq Tablet 40 MEQ PO (08:37)
[2024-08-29] MEDS: aspirin 81 mg EC Tablet PO (08:37)
[2024-08-29] MEDS: guaiFENesin 600 mg Tablet PO ×2 (08:37→17:01)
[2024-08-29 12:20] LABS: Glucose Point of Care 143 mg/dL (70-110)
[2024-08-29] MEDS: enoxaparin 40 mg/0.4 mL Syringe SUBCUT (12:31)
[2024-08-29] MEDS: polyethylene glycol 3350 Pkt 17 gm PO (12:31)
[2024-08-29] MEDS: insulin lispro 100 unit/1 mL SUBCUT ×2 (12:32→21:36)
[2024-08-29] MEDS: levoFLOXacin 500 mg Tablet PO (12:32)
--- NOTE | 2024-08-29 13:30 | P.PN_ITS ---
<Statement entered by Terry Jean M.D - 08/30/24 12:39> Patient was cared for in conjunction with an advanced practice practitioner.? I reviewed the chart and all pertinent data including imaging, telemetry, and laboratory results.? I discussed the patient in detail with the advanced practice practitioner.? Please see?their note for complete progress note, testing results and agreed upon plan of care for the patient. Subjective 2 Subjective: Patient doing well today. Denies chest pain or shortness of breath. Currently he is off of Levophed. Kidney function is stable at 1.3. He does have some edema and crackles today. Apparently he ate a large fried meal last night. Vitals/I&O/Wt Last Vital Signs Temp 98 F 08/29/24 04:00 Pulse 62 08/29/24 11:00 Resp 20 H 08/29/24 11:00 BP 132/77 08/29/24 11:00 Pulse Ox 96 08/29/24 11:00 O2 Del Method Nasal Cannula 08/29/24 07:35 O2 Flow Rate 1 08/29/24 07:35 FiO2 28 08/29/24 04:00 08/28/24 08/29/24 08/29/24 22:59 06:59 14:59 Intake Total 366.313 / 1872.750 850 / 2722.750 740 / 740 Output Total 1400 / 1400 450 / 1850 1750 / 1750 Balance -1033.687 / 472.750 400 / 872.750 -1010 / -1010 Weight last 48 hrs Weight 247 lb 8 oz Weight 116 lb Physical Exam 2 Narrative: General: No apparent distress, healthy appearing, well nourished Muskuloskeletal: Full ROM Lymphatic: no lymphedema noted Respiratory: Normal respiratory effort, bilateral lower lobes fine crackles, no use of accessory muscles Cardio: No JVD, regular rate, regular rhythm, S1 S2 normal, no murmurs, peripheral pulses 2+ radial palpated bilaterally GI: Normal to inspection, nondistended Extremities: Full ROM, normal, normal capillary refill, 1+ edema bilateral lower extremities Neuro: Alert and oriented x4, no focal motor deficits Psych: Affect normal, denies suicidal ideation, mental status grossly normal Skin: No rashes or lesions noted, no wounds, lower extremities are warm with 2 second capillary refill bilaterally Urinary Catheter Management: Cunningham: Cath Placed During This Visit: yes Reason for Continuing Indwelling Catheter: Accurate Measurement of Urinary Output in Critically Ill Patients Urinary Catheter Date of Insertion: 08/21/24 Urinary Catheter Time of Insertion: 09:46 Data 08/29/24 03:17 08/29/24 03:17 Micro: Microbiology 08/21/24 14:30 Gram Stain - Final Pleural Fluid Anaerobic Culture - Final Body Fluid Culture - Final A&P Assessment and plan (1) Acute on chronic hypoxic respiratory failure: (2) Encephalopathy acute: (3) Pneumonia: (4) Acute on chronic systolic CHF (congestive heart failure), NYHA class 4: Plan Patient appears well compensated. Currently off of pressors. From a heart failure standpoint he appears well compensated. Will continue current care and monitor I&O as well as for signs or symptoms of further decompensated heart failure. Will add low dose of lasix and carefully diurese and see how patient responds. PDMP PDMP Reviewed: Not Reviewed Attestations 2 Medical Necessity Statement*: Deferred to primary. Coding Level of Care Code Acute Code for [facility] Diagnoses Acute on chronic hypoxic respiratory failure J96.21 Encephalopathy acute G93.40 Pneumonia J18.9 Acute on chronic systolic CHF (congestive heart failure), NYHA class 4 I50.23
[2024-08-29] MEDS: FUROsemide 20 mg Tablet PO (13:47)
--- NOTE | 2024-08-29 15:16 | PC.NURSE ---
report called and for transfer to room [facility]
--- NOTE | 2024-08-29 15:27 | PC.OT ---
OT TREATMENT ATTEMPTED. PATIENT REFUSES OT TREATMENT AT THIS TIME. STATES HE ALREADY DID EXERCISES (WITH P.T.) TODAY AND DECLINES TO PARTICIPATE IN ADL.
--- NOTE | 2024-08-29 15:40 | PC.NURSE ---
Patient received from ICU. Assumed care at this time. Patient requests to remain in recliner at this time. Cunningham catheter present. Patient denies pain or needs. Will continue to monitor.
[2024-08-29 16:56] LABS: Glucose Point of Care 124 mg/dL (70-110)
[2024-08-29] MEDS: montelukast sodium 10 mg Tablet PO (17:01)
[2024-08-29 20:49] LABS: Glucose Point of Care 176 mg/dL (70-110)
[2024-08-29] MEDS: mirtazapine 30 mg Tablet PO (21:36)
[2024-08-29] MEDS: lamoTRIgine 100 mg Tablet 200 MG PO (21:36)
[2024-08-29] MEDS: gabapentin 300 mg Capsule 600 MG PO (21:36)
[2024-08-30] VITALS (10 sets, daily range): BP systolic 112–166; BP diastolic 70–101; PULSE 22–90; RESP 14–77; TEMP 36.5–36.7; O2SAT 91–99
[2024-08-30] MEDS: ipratropium-albuterol 3 mL Neb INHALATION ×4 (00:15→16:04)
[2024-08-30] MEDS: pantoprazole 40 mg SDV IVP (01:56)
[2024-08-30 03:23] LABS: Basophils % 0.1 %; Eosinophils # 0.1 10^3/uL (0.0-0.8); Hematocrit 33.3 % (37-53); Lymphocytes # 1.5 10^3/uL (0.8-4.8); Lymphocytes % 17.9 %; Mean Corpuscular HGB Conc 30.6 g/dL (30-55); Mean Corpuscular Hemoglobin 31.4 pg (27-33); Mean Corpuscular Volume 102.5 fl (82-101); Monocytes # 0.7 10^3/uL (0.2-0.9); Neutrophils # 6.21 10^3/uL (1.8-7.7); Neutrophils % 72.5 %; Nucleated Red Blood Cells % 0 %; Platelet Count 127 10^3/cmm (157-399); Red Blood Count 3.25 10^6/uL (3.85-5.65); Red Cell Distribution Width 13.3 % (12.1-15.1); White Blood Count 8.58 10^3/uL (3.29-11.43)
[2024-08-30 03:45] LABS: Alanine Aminotransferase 10 U/L (0-41); Albumin Level 3.4 g/dL (3.5-5.2); Alkaline Phosphatase 57 U/L (40-130); Anion Gap 7.4 (5-19); Aspartate Amino Transferase 14 U/L (0-40); Blood Urea Nitrogen 24 mg/dL (8-23); Calcium 10.6 mg/dL (8.5-10.5); Carbon Dioxide 34 mmol/L (22-29); Chloride 103 mmol/L (98-107); Creatinine Clr Calc Pharmacy 68.5138; Globulin 1.9 g/dL (1.3-4.6); Glomerular Filtration Rate 59.9 mL/min (90-130); Glucose 132 mg/dL (65-115); Magnesium 2.1 mg/dL (1.7-2.3); Osmolality Calculated 296 mOsm/kg (285-295); Potassium 4.4 mmol/L (3.5-5.1); Sodium 140 mmol/L (136-145); Total Bilirubin 0.7 mg/dL (0.15-1.2); Total Protein 5.3 g/dL (6.6-8.7)
[2024-08-30 03:46] LABS: Lactate (Lactic Acid level) 1.4 mmol/L (0.5-2.2)
[2024-08-30 03:54] LABS: NT Pro B Type Natriuretic Pept 2250 pg/mL (0-125)
[2024-08-30 06:11] LABS: Glucose Point of Care 168 mg/dL (70-110)
[2024-08-30] MEDS: levoFLOXacin 500 mg Tablet PO (06:45)
[2024-08-30] MEDS: pantoprazole DR 40 mg Tablet PO (06:45)
[2024-08-30] MEDS: potassium chloride ER 20 mEq Tablet 40 MEQ PO (08:00)
[2024-08-30] MEDS: lithium carbonate 300 mg Capsule PO (08:00)
[2024-08-30] MEDS: aspirin 81 mg EC Tablet PO (08:00)
[2024-08-30] MEDS: insulin lispro 100 unit/1 mL SUBCUT (08:00)
[2024-08-30] MEDS: guaiFENesin 600 mg Tablet PO (08:00)
[2024-08-30] MEDS: FUROsemide 20 mg Tablet PO (08:00)
--- NOTE | 2024-08-30 08:29 | PC.SOCIAL ---
IMM Update Pg. 2 of IMM updated and reviewed with patient, who verbalized understanding. Copy provided.
[2024-08-30] MEDS: budesonide 0.5 mg/2 mL Neb INHALATION (09:05)
[2024-08-30 11:06] LABS: Glucose Point of Care 153 mg/dL (70-110)
--- NOTE | 2024-08-30 11:24 | PM.DCS ---
Discharge Providers Date of Admission: 08/21/24 11:15 Date of Discharge: August 30, 2024 Attending Provider at Admission: Garrison Sierra Attending Provider at Discharge: Neptali Dsouza MD Primary Care Provider: Chanell Lee MD Diagnoses at Discharge Discharge Diagnosis (1) Acute on chronic hypoxic respiratory failure: Status: Resolved (2) Encephalopathy acute: Status: Resolved (3) Pneumonia: Status: Resolved (4) Acute on chronic systolic CHF (congestive heart failure), NYHA class 4: Status: Resolved Reason for Visit Reason for Visit: SOB, COPD, CHF Hospital Course Hospital Course 68-year-old gentleman with history of chronic congestive heart failure with reduced ejection fraction, ischemic cardiomyopathy, status post PPM/ICD, chronic hypoxic respiratory failure, normally on 3 L nasal cannula, COPD, bipolar disorder recently hospitalized, who presents [facility] for altered mental status, shortness of breath Patient requires hospitalization for acute on chronic respiratory failure, multifactorial from healthcare associate pneumonia, parapneumonic effusion, received IV antibiotics, overall clinically improved, repeat imaging showed no radiographic evidence of empyema, remained afebrile, cultures so far no growth, was discharged on p.o. antibiotics Patient's hospitalization was complicated with systolic CHF exacerbation, requiring IV diuresis Patient's hospitalization was complicated by ROCKY, hypotension, cardiogenic shock in conjunction with his CHF exacerbation, requiring ICU admission, requiring IV pressors, cardiology consultation. Overall patient's clinical condition improved, fluid status improved, was weaned off pressors, ambulating without any significant symptomatology. ROCKY on CKD, resolving on discharge For underlying CHF, COPD, patient qualified for BiPAP, will be discharged with BiPAP therapy Acute on chronic systolic CHF exacerbation, euvolemic on discharge, discharged on p.o. diuresis Concerns for parapneumonic effusion, 1 L drained by thoracentesis, culture so far no growth Physical Exam Const: COMMON NORMALS: no acute distress and patient oriented x3 Resp: COMMON NORMALS: normal respiratory effort, No retractions, No use of accessory muscles and clear to auscultation bilaterally AUSCULTATION: clear to auscultation bilaterally Cardio: COMMON NORMALS: regular rate, regular rhythm, S1 normal heart sound present and S2 normal heart sound present RATE: regular rate RHYTHM: regular rhythm HEART SOUNDS: S1 normal heart sound present and S2 normal heart sound present GI: COMMON NORMALS: Normal to inspection, nondistended, normoactive bowel sounds present and non-tender Extremity: COMMON NORMALS: no pedal edema Neuro: COMMON NORMALS: patient oriented x3 Psych: COMMON NORMALS: mental status grossly normal Urinary Catheter Management: Cunningham: Cath Placed During This Visit: yes Reason for Continuing Indwelling Catheter: Other Urinary Catheter Date of Insertion: 08/21/24 Urinary Catheter Time of Insertion: 09:46 Discharge Data Studies Completed and Pending Completed Studies During Hospitalization Category Date Time Status CT chest wo con 63365 Routine Cat Scan 08/25/24 08:[address] head wo con* [id number] Routine Cat Scan 08/26/24 17:17 Completed CXRP [XR chest 1V portable 02118] Routine Exams 08/21/24 13:24 Completed CXRP [XR chest 1V portable 90810] Routine Exams 08/21/24 14:33 Completed CXRP [XR chest 1V portable 91455] Stat Exams 08/23/24 22:14 Completed XR chest 1V portable [id number] Routine Exams 08/25/24 07:00 Completed XR chest 1V portable 14738 Routine Exams 08/27/24 05:13 Completed XR chest 1V portable [id number] Stat Exams 08/21/24 08:47 Completed XR chest 1V portable [id number] Stat Exams 08/24/24 08:54 Completed XR hip BI 2V wo/w pel 40530 Routine Exams 08/26/24 17:17 Completed XR lumbar spine 2-3V* 40419 Routine Exams 08/26/24 17:17 Completed Cytology [PTH] Routine Pth 08/21/24 14:56 [place] [id number] Routine Ultrasound 08/27/24 08:26 Completed CV. echo limited 18102 Routine Ultrasound 08/27/24 08:26 [place] chest 30839 Stat Ultrasound 08/21/24 10:28 Completed US renal BI* [id number] Routine Ultrasound 08/22/24 15:40 Completed US thoracentesis 17592 Stat Ultrasound 08/21/24 10:30 Completed US venous duplex lower extremity RT [CV venous duplex Ultrasound 08/22/24 00:[place] [address]] Routine Pending at discharge Category Date Time Status Fungal Culture not HR/SK/BL Routine Lab 08/21/24 14:30 Results Radiology Impressions Chest Ultrasound 08/21/24 10:28 IMPRESSION: Moderate LEFT pleural effusion. Thoracentesis Ultrasound 08/21/24 10:30 IMPRESSION: 1. LEFT thoracentesis yielding 1000 cc of fluid. 2. Chest radiograph to follow to evaluate for pneumothorax. Renal Ultrasound 08/22/24 15:40 IMPRESSION: 1. No interval change renal ultrasound since 06/29/2024. 2. No hydronephrosis. 3. RIGHT renal cyst. Chest CT 08/25/24 08:44 IMPRESSION: Bilateral pleural effusions with lower lobe atelectasis. Head CT 08/26/24 17:17 IMPRESSION: No acute intracranial abnormality. Hip/Pelvis X-Ray 08/26/24 17:17 IMPRESSION: No acute findings. Lumbar Spine X-Ray 08/26/24 17:17 IMPRESSION: No acute abnormality. Chest X-Ray 08/27/24 05:13 IMPRESSION: No significant change. Laboratory Results WBC 8.58 10^3/uL (3.29-11.43) 08/30/24 03:07 RBC 3.25 10^6/uL (3.85-5.65) L 08/30/24 03:07 Hgb 10.20 g/dL (11.27-16.99) L 08/30/24 03:07 Hct 33.3 % (37-53) L 08/30/24 03:07 MCV 102.5 fl (82-101) H 08/30/24 03:07 MCH 31.4 pg (27-33) 08/30/24 03:07 MCHC 30.6 g/dL (30-55) 08/30/24 03:07 RDW 13.3 % (12.1-15.1) 08/30/24 03:07 Plt Count 127 10^3/cmm (157-399) L 08/30/24 03:07 MPV 11.0 fL (7.4-10.4) H 08/30/24 03:07 Neut % (Auto) 72.5 % 08/30/24 03:07 Lymph % (Auto) 17.9 % 08/30/24 03:07 Dickson % (Auto) 8.0 % 08/30/24 03:07 Eos % (Auto) 1.0 % 08/30/24 03:07 Baso % (Auto) 0.1 % 08/30/24 03:07 Neut # (Auto) 6.21 10^3/uL (1.8-7.7) 08/30/24 03:07 Lymph # (Auto) 1.5 10^3/uL (0.8-4.8) 08/30/24 03:07 Dickson # (Auto) 0.7 10^3/uL (0.2-0.9) 08/30/24 03:07 Eos # (Auto) 0.1 10^3/uL (0.0-0.8) 08/30/24 03:07 Baso # (Auto) 0.0 10^3/uL (0.0-0.1) 08/30/24 03:07 Nucleated RBC % (auto) 0 % 08/30/24 03:07 Nucleated RBCs # 0.0 /100WBC 08/30/24 03:07 Differential Comment Yes 08/21/24 14:30 D-Dimer 1.81 ug/mLFEU (0-0.59) H 08/21/24 20:44 Specimen Type Arterial 08/27/24 09:52 Sample Site Radial, right 08/27/24 09:52 ABG pH 7.33 (7.35-7.45) L 08/27/24 09:52 ABG pCO2 76.1 mmHg (35-45) H* 08/27/24 09:52 ABG pO2 92.1 mmHg (80.0-100.0) 08/27/24 09:52 ABG PO2/FiO2 Ratio 230 08/27/24 09:52 ABG HCO3 40.0 mmol/L (22-26) H 08/27/24 09:52 ABG O2 Saturation 97.9 08/27/24 09:52 ABG Base Excess 11.0 mmol/L (-2.0-2.0) H 08/27/24 09:52 Obed Test Pos 08/27/24 09:52 A-a O2 Gradient 13.2 mmHg (5-10) H 08/27/24 09:52 Hematocrit 39.5 % (42-52) L 08/27/24 09:52 Hgb O2 Saturation 95.7 % (95-100) 08/27/24 09:52 Carboxyhemoglobin 1.1 %THgb (0.4-20.1) 08/27/24 09:52 Methemoglobin 1.1 % (0.4-1.5) 08/27/24 09:52 Total Hemoglobin 12.9 g/dL (14-18) L 08/27/24 09:52 Sodium 138.0 mmol/L (131-143) 08/27/24 09:52 Potassium 3.7 mmol/L (3.5-5.0) 08/27/24 09:52 Glucose 146.0 mg/dL (70-115) H 08/27/24 09:52 Ionized Calcium 1.4 mmol/L (1.1-1.4) 08/27/24 09:52 O2 Delivery Device Bipap 08/27/24 09:52 O2 Liters/Min 12.0 % 08/23/24 22:20 FiO2 40.0 % 08/27/24 09:52 Tidal Volume 0.50 08/27/24 09:52 PEEP 8.0 cmH20 08/27/24 09:52 Data Migration Lead ID [place] 08/27/24 09:52 Sodium 140 mmol/L (136-145) 08/30/24 03:07 Potassium 4.4 mmol/L (3.5-5.1) 08/30/24 03:07 Chloride 103 mmol/L (98-107) 08/30/24 03:07 Carbon Dioxide 34 mmol/L (22-29) H 08/30/24 03:07 Anion Gap 7.4 (5-19) 08/30/24 03:07 BUN 24 mg/dL (8-23) H 08/30/24 03:07 Creatinine 1.2 mg/dL (0.7-1.2) 08/30/24 03:07 GFR Calculation 59.9 mL/min (90-130) L 08/30/24 03:07 Glucose 132 mg/dL (65-115) H 08/30/24 03:07 POC Glucose 153 mg/dL (70-110) H 08/30/24 10:57 Calculated Osmolality 296 mOsm/kg (285-295) H 08/30/24 03:07 Lactic Acid 1.7 mmol/L (0.5-2.2) 08/27/24 10:14 Lactate 1.4 mmol/L (0.5-2.2) 08/30/24 03:07 Calcium 10.6 mg/dL (8.5-10.5) H 08/30/24 03:07 Phosphorus 3.4 mg/dL (2.5-4.5) 08/27/24 02:32 Magnesium 2.1 mg/dL (1.7-2.3) 08/30/24 03:07 Total Bilirubin 0.7 mg/dL (0.15-1.2) 08/30/24 03:07 AST 14 U/L (0-40) 08/30/24 03:07 ALT 10 U/L (0-41) 08/30/24 03:07 Alkaline Phosphatase 57 U/L (40-130) 08/30/24 03:07 Creatine Kinase 65 U/L (39-308) 08/21/24 09:17 Troponin T Baseline 55 ng/L (0-15) H 08/27/24 10:14 Troponin T 120 Minute 83.46 ng/L (0-15) H 08/27/24 12:06 Delta Troponin T 28.46 ABS# (0-10) H* 08/27/24 12:06 Troponin T Hi Sens 6Hr 82.42 ng/L (0-15) H 08/27/24 16:08 Troponin T Hi Sens 6Hr Delta 27.42 ng/L (0-12) H* 08/27/24 16:08 C-Reactive Protein 3.0 mg/L (0.0-4.9) 08/27/24 02:32 NT-Pro-B Natriuret Pep 2250 pg/mL (0-125) H 08/30/24 03:07 Total Protein 5.3 g/dL (6.6-8.7) L 08/30/24 03:07 Albumin 3.4 g/dL (3.5-5.2) L 08/30/24 03:07 Globulin 1.9 g/dL (1.3-4.6) 08/30/24 03:07 Lipase 13 U/L (13-60) 08/21/24 09:17 Procalcitonin 0.16 ng/mL (0-0.5) 08/27/24 02:32 Urine Color Yellow (Yellow) 08/21/24 09:23 Urine Appearance Clear (CLEAR) 08/21/24 09:23 Urine pH 5.5 (5-7) 08/21/24 09:23 Ur Specific [place] 1.021 (1.005-1.030) 08/21/24 09:23 Urine Protein 4+ (Negative) A 08/21/24 09:23 Urine Glucose (UA) Trace (Normal) H 08/21/24 09:23 Urine Ketones Negative (Negative) 08/21/24 09:23 Urine Blood 1+ (Negative) A 08/21/24 09:23 Urine Nitrate Negative (Negative) 08/21/24 09:23 Urine Bilirubin Negative (Negative) 08/21/24 09:23 Urine Urobilinogen 0.2 mg/dL (Negative) 08/21/24 09:23 Ur Leukocyte Esterase Negative (Negative) 08/21/24 09:23 Urine RBC 3-5 /hpf (0-2) 08/21/24 09:23 Urine WBC 0-5 /hpf (0-5) 08/21/24 09:23 Ur Squamous Epith Cells 0-5 /hpf (0-5) 08/21/24 09:23 Amorphous Sediment Not Reportable 08/21/24 09:23 Urine Bacteria None seen /hpf (NONE) 08/21/24 09:23 Hyaline Casts 11.97 /lpf 08/21/24 09:23 Ur Random Urea Nitrogn 267 mg/dL 08/22/24 17:23 Urine Creatinine 61 mg/dL (39-259) 08/22/24 17:23 Fluid Color Pale yellow 08/21/24 14:30 Fluid Appearance Cloudy 08/21/24 14:30 Fluid pH 7.0 08/21/24 14:30 Fluid WBC 464 /uL 08/21/24 14:30 Fluid RBC 1.000 10^3/uL 08/21/24 14:30 Fld Polynuclear WBCs # 0.034 08/21/24 14:30 Fld Polynuclear WBCs % 7.300 % 08/21/24 14:30 Fl Mononucl WBCs #(Auto) 0.430 08/21/24 14:30 Fl Mononuclear % Auto 92.700 % 08/21/24 14:30 Fld Crystal Laterality Left pleural fluid 08/21/24 14:30 Fluid Albumin 2.1 g/dL 08/21/24 14:30 Fluid LDH 188 U/L 08/21/24 14:30 Pleural Total Protein 2.8 g/dL 08/21/24 14:30 Pleural Glucose 220.0 mg/dL 08/21/24 14:30 Nasal MRSA (PCR) Not detected (Negative) 08/21/24 20:46 [place] 0.1 mmol/L (0.6-1.2) L 08/23/24 19:40 Serum Ketones Negative (Negative) 08/21/24 09:17 Influenza A (PCR) Negative (Negative) 08/21/24 09:19 Influenza Type B (PCR) Negative (Negative) 08/21/24 09:19 RSV (PCR) Negative (Negative) 08/21/24 09:19 SARS-CoV-2 (PCR) Negative (Negative) 08/21/24 09:19 Vitals Last Vital Signs Temp 97.7 F 08/30/24 08:00 Pulse 60 08/30/24 09:13 Resp 16 08/30/24 09:05 BP 162/87 08/30/24 08:39 Pulse Ox 96 08/30/24 09:05 O2 Del Method Nasal Cannula 08/30/24 09:05 O2 Flow Rate 2 08/30/24 09:05 FiO2 21 08/30/24 00:00 Discharge Plan Discharge Patient Disposition: Home Health Service Condition: Stable Prescriptions: New levofloxacin 500 mg Tablet 500 mg PO DAILY@0600 5 Days Qty: 5 0RF Continued lamotrigine 200 mg tablet 200 mg PO BEDTIME pantoprazole 40 mg tablet,delayed release (DR/EC) 40 mg PO QAM gabapentin 300 mg capsule 900 mg PO BEDTIME aspirin [Adult Low Dose Aspirin] 81 mg tablet,delayed release (DR/EC) 81 mg PO DAILY Qty: 90 3RF mecobalamin (vitamin B12) 1,000 mcg tablet,chewable 1,000 mcg PO DAILY melatonin 10 mg capsule 10 mg PO DAILY methocarbamol 500 mg Tablet 500 mg PO Q12H PRN (Reason: muscle spasms) guaifenesin [Mucinex] 600 mg Tablet Extended Release 12hr 600 mg PO BID acetaminophen [Tylenol Extra Strength] 500 mg Tablet 1,000 mg PO Q6H PRN (Reason: Fever Or Pain) quetiapine 100 mg Tablet 100 mg PO BEDTIME PRN (Reason: DEPRESSION) mirtazapine 30 mg Tablet 30 mg PO BEDTIME fluticasone propion-salmeterol [Advair Diskus] 250-50 mcg/dose Blister With Device 1 inh INHALATION BID montelukast [Singulair] 10 mg Tablet 10 mg PO QPM metformin 500 mg Tablet Extended Release 24 Hr 500 mg PO DAILY potassium chloride 10 mEq tablet,ER particles/crystals 10 meq PO DAILY cholecalciferol (vitamin D3) [Vitamin D3] 50 mcg (2,000 unit) Tablet 50 mcg PO DAILY Stiolto Respimat 2.5-2.5 mcg/actuation mist 2 inh INHALATION DAILY albuterol sulfate 90 mcg/actuation HFA aerosol inhaler 2 puff INHALATION QID PRN (Reason: copd) atorvastatin 80 mg Tablet 80 mg PO QPM cyanocobalamin (vitamin B-12) 1,000 mcg Tablet 1,000 mcg PO DAILY lithium carbonate 300 mg Capsule 300 mg PO BID Changed furosemide 40 mg tablet 20 mg PO DAILY 30 Days Qty: 30 0RF Discontinued Entresto 24-26 mg tablet 1 tab PO BID chlorthalidone 25 mg Tablet 25 mg PO DAILY lisinopril 10 mg tablet 10 mg PO DAILY carvedilol 6.25 mg Tablet 3.125 mg PO BID Rx Instructions: must administer with a meal/food Discharge Orders: Discharge Order (Routine); Ordered 08/30/24 Ordered By: Neptali Dsouza Other Ambulatory Orders: DME: BIPAP (Order) Location: None Selected Ordered By: Neptali Dsouza Referrals: [facility] [Outside] Chanell Lee MD [Primary Care Provider] - 09/17/24 1:30 pm Terry Jean M.D [Physician] - 09/23/24 4:30 pm (Follow up will be with ) Discharge Diet: Cardiac Discharge Activity: Resume usual activity Patient Instructions: Levofloxacin (By mouth), Congestive Heart Failure, Heart Failure (DC), Pneumonitis (DC), Encephalopathy (DC), Acute Respiratory Failure (GEN), CHF Stoplight, Opioid Safety Discharge Attestations Time Spent in Discharge Care*: greater than 30 min Quality Metrics Clinical Quality Measures [ No reported AMI, CVA or VTE this stay] Coding Level of Care Code 87832 Total time (in minutes) for Discharge: 45 Diagnoses Acute on chronic hypoxic respiratory failure J96.21 Encephalopathy acute G93.40 Pneumonia J18.9 Acute on chronic systolic CHF (congestive heart failure), NYHA class 4 I50.23
--- NOTE | 2024-08-30 14:46 | P.PN_ITS ---
<Statement entered by Remington Pringle MD - 08/31/24 01:13> Patient was evaluated and cared for in conjunction with an advanced practice practitioner. Please note that I have not personally examined the patient but I have reviewed the chart and all pertinent data including imaging, telemetry, and laboratory results. I discussed the patient in detail with the advanced practice practitioner. Please see their note for complete H&P testing result and agreed upon plan of care for the patient. Subjective 2 Subjective: Patient doing well today. He is negative to 880 over 24 hours. Blood pressure is coming up at 149/101. Ejection fraction was last seen at 25 to 30% which is about the same as it was in June. Creatinine is stable at 1.2. He is seeing a good response from Lasix 20 mg daily. He still has some edema but overall looks good. Vitals/I&O/Wt Last Vital Signs Temp 97.7 F 08/30/24 08:00 Pulse 60 08/30/24 12:48 Resp 24 H 08/30/24 12:48 BP 112/70 08/30/24 12:48 Pulse Ox 97 08/30/24 12:48 O2 Del Method Nasal Cannula 08/30/24 09:05 O2 Flow Rate 2 08/30/24 09:05 FiO2 21 08/30/24 00:00 08/29/24 08/30/24 08/30/24 22:59 06:59 14:59 Intake Total 920 / 2010 600 / 2610 240 / 240 Output Total 3400 / 5150 1000 / 6150 200 / 200 Balance -2480 / -3140 -400 / -3540 40 / 40 Weight last 48 hrs Weight 237 lb 7.005 oz Weight 247 lb 8 oz Physical Exam 2 Narrative: General: No apparent distress, healthy appearing, well nourished Muskuloskeletal: Full ROM Lymphatic: no lymphedema noted Respiratory: Normal respiratory effort, clear throughout all lung aguayo, no use of accessory muscles Cardio: No JVD, regular rate, regular rhythm, S1 S2 normal, no murmurs, peripheral pulses 2+ radial palpated bilaterally GI: Normal to inspection, nondistended Extremities: Full ROM, normal, normal capillary refill, 1+ edema bilateral lower extremities Neuro: Alert and oriented x4, no focal motor deficits Psych: Affect normal, denies suicidal ideation, mental status grossly normal Skin: No rashes or lesions noted, no wounds, lower extremities are warm with 2 second capillary refill bilaterally Urinary Catheter Management: Cunningham: Cath Placed During This Visit: yes Reason for Continuing Indwelling Catheter: Other Urinary Catheter Date of Insertion: 08/21/24 Urinary Catheter Time of Insertion: 09:46 Data 08/30/24 03:07 08/30/24 03:07 A&P Assessment and plan (1) Acute on chronic hypoxic respiratory failure: (2) Encephalopathy acute: (3) Pneumonia: (4) Acute on chronic systolic CHF (congestive heart failure), NYHA class 4: Plan Patient appears well compensated. Currently off of pressors. From a heart failure standpoint he appears well compensated. Will continue current care and monitor I&O as well as for signs or symptoms of further decompensated heart failure. Will continue low dose of lasix and carefully diurese. Patient is going home today. Needs to have low dose Entresto and GDMT added as tolerated. Carefully watch weight, take extra dose of lasix if gains 3 pounds in a day or 5 pounds in 1 week. F/U in the clinic in 1 week. PDMP PDMP Reviewed: Not Reviewed Attestations 2 Medical Necessity Statement*: Deferred to primary. Coding Level of Care Code Acute Code for Chg Fwd Diagnoses Acute on chronic hypoxic respiratory failure J96.21 Encephalopathy acute G93.40 Pneumonia J18.9 Acute on chronic systolic CHF (congestive heart failure), NYHA class 4 I50.23
--- NOTE | 2024-08-30 16:25 | PC.NURSE ---
Patient discharged to home. Cunningham and PICC removed prior to discharge . Patient has urinated. Instruction provided to patient and spouse regarding follow up needs, disease process and medication changes. Both verbalized complete understanding. Medications provided as med-to-beds. Patient denies pain or needs. Patient taken by wheelchair to private vehicle with spouse by side.
== END 2024-08-30 16:27 | disposition home health service (06) | DRG 208 ==
LOC: ER 09:23 → ICU 11:15 → CSU 08-26 14:58 → ICU 08-27 05:29 → CSU 08-29 15:23
PROVIDERS: Internal Medicine; Admitting Provider Internal Medicine; Emergency Provider Family Medicine; PCP Family Medicine; Visit Provider Family Medicine
DX: J18.9 Pneumonia, unspecified organism (principal); J96.21 Acute and chronic respiratory failure with hypoxia; I50.23 Acute on chronic systolic (congestive) heart failure; R57.0 Cardiogenic shock; G93.41 Metabolic encephalopathy; J44.0 Chronic obstructive pulmonary disease with (acute) lower respiratory infection; J44.1 Chronic obstructive pulmonary disease with (acute) exacerbation; I13.0 Hypertensive heart and chronic kidney disease with heart failure and stage 1 through stage 4 chronic kidney disease, or unspecified chronic kidney disease; N17.9 Acute kidney failure, unspecified; Y95 Nosocomial condition; I25.5 Ischemic cardiomyopathy; N18.9 Chronic kidney disease, unspecified; Z79.82 Long term (current) use of aspirin; M81.0 Age-related osteoporosis without current pathological fracture; F31.9 Bipolar disorder, unspecified; N40.0 Benign prostatic hyperplasia without lower urinary tract symptoms; E89.2 Postprocedural hypoparathyroidism; I25.10 Atherosclerotic heart disease of native coronary artery without angina pectoris; Z95.5 Presence of coronary angioplasty implant and graft; Z95.810 Presence of automatic (implantable) cardiac defibrillator; E78.5 Hyperlipidemia, unspecified; Z98.1 Arthrodesis status; Z87.891 Personal history of nicotine dependence; W18.39XA Other fall on same level, initial encounter; Y92.230 Patient room in hospital as the place of occurrence of the external cause; I95.9 Hypotension, unspecified; F41.9 Anxiety disorder, unspecified; E83.42 Hypomagnesemia; Z99.81 Dependence on supplemental oxygen
CPT/HCPCS: 32555; 36415; 36416; 36573; 36592; 36600; 51702; 70450; 71045; 71250; 72100; 73521; 76604; 76770; 80048; 80051; 80053; 80178; 80503; 81001; 82009; 82042; 82330; 82550; 82570; 82805; 82945; 82962; 83605; 83615; 83690; 83735; 83880; 83986; 84100; 84145; 84157; 84484; 84540; 85025; 85378; 86140; 87040; 87070; 87075; 87102; 87205; 87206; 87637; 88112; 88305; 89050; 92523; 92526; 92610; 93005; 93308; 93970; 93971; 94003; 94640; 94660; 94664; 94762; 94799; 96365; 96366; 96367; 96372; 96374; 96375; 96376; 97110; 97116; 97161; 97165; 97530; 99291; 99292; A4570; C1751; J0330; J1250; J1650; J1815; J1940; J2020; J2250; J2405; J2470; J2543; J2704; J2919; J3010; J3475; J3490; J7030; J7040; J7626; J9999; P9046

== ENCOUNTER 2024-09-03 08:59 | Inpatient (IN) | payer OTHER, SELFPAY ==
[2024-09-03] VITALS (54 sets, daily range): BP systolic 94–183; BP diastolic 56–100; PULSE 60–133; RESP 16–42; TEMP 36.4–37.3; O2SAT 92–100; BMI 36.2
--- NOTE | 2024-09-03 09:04 | XRR_ITS ---
PROCEDURE INFORMATION: Exam: XR Chest Exam date and time: 09/03/2024 9:52 AM Age: 68 years old Clinical indication: Cough and dyspnea; Additional info: Dyspnea/cough TECHNIQUE: Imaging protocol: Radiologic exam of the chest. Views: 1 view. COMPARISON: CR (CHEST, ) 08/27/2024 5:17 AM FINDINGS: Tubes, catheters and devices: ETT is 2.7 cm above the severo. NG tube in the stomach. Left chest AICD Lungs: Mild central pulmonary edema. Pleural spaces: Small left-sided pleural effusion. Heart/Mediastinum: Cardiomegaly is seen. Bones/joints: Unremarkable. XR/XR chest 1V portable [id number] IMPRESSION: 1. ETT is 2.7 cm above the severo. 2. NG tube in the stomach. 3. Mild central pulmonary edema. 4. Small left-sided pleural effusion. 5. Cardiomegaly.
--- NOTE | 2024-09-03 09:05 | ECG_ITS ---
[facility] Test Date: 2024-09-03 Pat Name: Jim Carney Department: Room: Gender: Male Proj Engineer: : [id number] Requested By: Dawson Ling Order Number: [id number] Estelita MD: Narciso Frederick M.D. Measurements Intervals [place] Rate: 83 P: 0 [place]: 0 QRS: -84 QRSD: 184 T: 101 QT: 390 QTc: 461 Interpretive Statements ELECTRONIC VENTRICULAR PACEMAKER ABNORMAL RHYTHM ECG Compared to ECG 08/27/2024 11:10:02 No significant changes Electronically Signed On 09-03-2024 18:50:24 CDT by Narciso Frederick M.D. [email or web address]
[2024-09-03 09:12] LABS: ABG PCO2 51.9 mmHg (35-45); ABG PH Result 7.34 (7.35-7.45); Alveolar-Arterial Oxygen Gradi 17.9 mmHg (5-10); Arterial Blood Gas Hematocrit 32.4 % (42-52); Base Excess ABG 1.3 mmol/L (-2.0-2.0); Blood Gas Allen Test Pos; Blood Gas Operator Identificat AMH; Blood Gas Sample Site Radial, right; Blood Gas Sample Type Arterial; Carboxyhemoglobin 1.5 %THgb (0.4-20.1); HCO3 ABG 27.8 mmol/L (22-26); Ionized Calcium Level - ABG 1.6 mmol/L (1.1-1.4); Methemoglobin 0.2 % (0.4-1.5); Oxygen Device NC; Oxygen Saturation ABG 89.5; PO2 ABG 57.8 mmHg (80.0-100.0); PO2 FiO2 Ratio Arterial Blood 160; Total Hemoglobin 10.6 g/dL (14-18)
[2024-09-03] MEDS: vecuronium 10 mg SDV IVP (09:20)
[2024-09-03] MEDS: etomidate 2 mg/mL INJ SDV 10 mL 20 MG IVP (09:20)
[2024-09-03] MEDS: propofol 1,000 MG/100 ML INJ 2.68 MG IV (09:22)
--- NOTE | 2024-09-03 09:22 | PC.PHAR ---
negar discharged 4 days ago, current meds are up to date and patients getting intubated so unable to answer if meds were taken today.
[2024-09-03] MEDS: methylPREDNISolone sod succ 125 mg/2 mL INJ IVP (09:23)
[2024-09-03 09:37] LABS: Basophils # 0.1 10^3/uL (0.0-0.1); Basophils % 0.3 %; Hematocrit 34.1 % (37-53); Lymphocytes # 1.6 10^3/uL (0.8-4.8); Lymphocytes % 6.2 %; Mean Corpuscular HGB Conc 30.2 g/dL (30-55); Mean Corpuscular Hemoglobin 30.7 pg (27-33); Mean Corpuscular Volume 101.8 fl (82-101); Mean Platelet Volume 12.4 fL (7.4-10.4); Monocytes # 2.8 10^3/uL (0.2-0.9); Monocytes % 10.6 %; Neutrophils # 21.61 10^3/uL (1.8-7.7); Neutrophils % 81.5 %; Nucleated Red Blood Cells % 0.1 %; Platelet Count 124 10^3/cmm (157-399); Red Blood Count 3.35 10^6/uL (3.85-5.65); Red Cell Distribution Width 13.2 % (12.1-15.1); White Blood Count 26.53 10^3/uL (3.29-11.43)
[2024-09-03] MEDS: ipratropium-albuterol 3 mL Neb INHALATION ×3 (09:41→20:14)
[2024-09-03 09:50] LABS: Bacteria Urine None Seen /hpf; Hyaline Casts Urine 44.25 /lpf; WBC Urine 21-50 /hpf (0-5)
[2024-09-03 09:53] LABS: Troponin(5th) Baseline 97 ng/L (0-15)
[2024-09-03 09:59] LABS: Alanine Aminotransferase 17 U/L (0-41); Alkaline Phosphatase 93 U/L (40-130); Aspartate Amino Transferase 17 U/L (0-40); Blood Urea Nitrogen 14 mg/dL (8-23); Carbon Dioxide 26 mmol/L (22-29); Chloride 98 mmol/L (98-107); Creatinine Clr Calc Pharmacy 80.3643; Globulin 2.3 g/dL (1.3-4.6); Glomerular Filtration Rate 73.9 mL/min (90-130); Glucose 380 mg/dL (65-115); Osmolality Calculated 294 mOsm/kg (285-295); Sodium 134 mmol/L (136-145); Total Bilirubin 0.6 mg/dL (0.15-1.2); Total Protein 6.3 g/dL (6.6-8.7)
[2024-09-03 10:00] LABS: Anion Gap 15.1 (5-19); Potassium 5.1 mmol/L (3.5-5.1)
[2024-09-03 10:01] LABS: Lactic Sepsis W/Reflex 3.6 mmol/L (0.5-2.2)
[2024-09-03] MEDS: piperacillin-tazobactam 3.375 GM in sodium chloride 0.9% (plus) 50 ML IV ×2 (10:17→17:08)
[2024-09-03] MEDS: levofloxacin-dextrose 5 % 750 MG/150 ML PREMIX 100 MG IV (10:17)
[2024-09-03 10:23] LABS: Influenza A NEGATIVE (Negative); Influenza B NEGATIVE (Negative); Respiratory Syncytial Virus Ce NEGATIVE (Negative); SARS-CoV-2 PCR NEGATIVE (Negative)
[2024-09-03] MEDS: linezolid premix 600 MG/300 ML PREMIX 300 MG IV ×2 (10:33→21:30)
[2024-09-03] MEDS: propofol 10 mg/mL SDV 20 mL 50 MG IVP (10:35)
--- NOTE | 2024-09-03 10:38 | PC.NURSE ---
INCREASE PROPOFOL PER DR. SPANN VERBAL ORDER
--- NOTE | 2024-09-03 10:39 | W.ED.SOB ---
HPI - SOB/Dyspnea General: Chief Complaint: Shortness of Breath/Dyspnea Stated Complaint: resp distress Time Seen by Provider: 09/03/24 09:00 History of Present Illness: HPI Narrative: 68-year-old male presents emergency room by EMS with impending respiratory arrest. Patient denies chest pain patient is tachypneic with very shallow breaths respiratory rate approaching 60. He is able to tell us that he has been progressively worsening since he was discharged from the hospital 4 days ago. He is usually on 3 L he was 85% on 3 L at the time of discharge. No family members present at the time of arrival patient does wish to be intubated. Given his impending respiratory arrest patient was intubated by RSI see note below Associated symptoms: Reports chest congestion; Deny chest pain Related Data Home Medications ?Medication ?Instructions ?Recorded ?Confirmed gabapentin 300 mg capsule 900 mg PO BEDTIME 05/05/22 09/03/24 lamotrigine 200 mg tablet 200 mg PO BEDTIME 05/05/22 09/03/24 pantoprazole 40 mg tablet,delayed 40 mg PO QAM 05/05/22 09/03/24 release guaifenesin 600 mg tablet, 600 mg PO BID 05/21/24 09/03/24 extended release 12 hr (Mucinex) methocarbamol 500 mg tablet 500 mg PO Q12H PRN muscle spasms 05/21/24 09/03/24 mecobalamin (vitamin B12) 1,000 1,000 mcg PO DAILY 06/18/24 09/03/24 mcg chewable tablet melatonin 10 mg capsule 10 mg PO DAILY 06/18/24 09/03/24 acetaminophen 500 mg tablet 1,000 mg PO Q6H PRN Fever Or Pain 06/24/24 09/03/24 (Tylenol Extra Strength) mirtazapine 30 mg tablet 30 mg PO BEDTIME 06/24/24 09/03/24 quetiapine 100 mg tablet 100 mg PO BEDTIME PRN DEPRESSION 06/24/24 09/03/24 albuterol sulfate 90 mcg/actuation 2 puff inhalation QID PRN copd 08/21/24 09/03/24 aerosol inhaler atorvastatin 80 mg tablet 80 mg PO QPM 08/21/24 09/03/24 cholecalciferol (vitamin D3) 50 50 mcg PO DAILY 08/21/24 09/03/24 mcg (2,000 unit) tablet (Vitamin D3) cyanocobalamin (vitamin B-12) 1,000 mcg PO DAILY 08/21/24 09/03/24 1,000 mcg tablet fluticasone 250 mcg-salmeterol 50 1 inh inhalation BID 08/21/24 09/03/24 mcg/dose blistr powdr for inhalation (Advair Diskus) lithium carbonate 300 mg capsule 300 mg PO BID 08/21/24 09/03/24 metformin 500 mg tablet,extended 500 mg PO DAILY 08/21/24 09/03/24 release 24 hr montelukast 10 mg tablet 10 mg PO QPM 08/21/24 09/03/24 (Singulair) potassium chloride 10 mEq 10 meq PO DAILY 08/21/24 09/03/24 tablet,extended release(part/cryst) tiotropium 2.5 mcg-olodaterol 2.5 2 inh inhalation DAILY 08/21/24 09/03/24 mcg/actuation mist for inhalation (Stiolto Respimat) Previous Rx's ?Medication ?Instructions ?Recorded aspirin 81 mg tablet,delayed 81 mg PO DAILY #90 tabs 05/05/22 release (Adult Low Dose Aspirin) furosemide 40 mg tablet 20 mg (1/2 x 40 mg) PO DAILY 30 08/30/24 days #30 tabs levofloxacin 500 mg tablet 500 mg PO DAILY@0600 5 days #5 tabs 08/30/24 Allergies Allergy/AdvReac Type Severity Reaction Status Date / Time No Known Allergies Allergy Verified 07/08/24 15:01 Review of Systems Card: Denies: chest pain Resp: Reports: dyspnea, productive cough, wheezing and chest congestion [facility] ED PFSH: Medical History (Updated 09/03/24 @ 12:39 by Dawson Foster DO) Anxiety Osteoporosis without pathological fracture Bipolar disorder, unspecified Benign prostatic hyperplasia without lower urinary tract symptoms Gastritis, unspecified, without bleeding Gastrointestinal stromal tumor of stomach Low back pain, unspecified Umbilical hernia without obstruction or gangrene Hyperparathyroidism s/p parathyroid tumor removal Depression Bipolar 1 disorder Gastrointestinal stromal tumor s/p surgery in 2019 in [place]. No chemo or radiation needed. Hypertension Ischemic cardiomyopathy CAD (coronary artery disease) s/p 1 stent in 2015 Cardiac resynchronization therapy defibrillator ([employer]-D) in place Hyperlipidemia, unspecified Surgical History History of lumbar laminectomy in 2014 in [place] Abdominal aortic aneurysm (AAA) without rupture s/p surgery in 2018 or 2019 in [place] Family History Father Heart attack Social History Smoking and tobacco/nicotine status: former use of tobacco/nicotine (2022) Alcohol intake: never Substance/Drug Use: current Physical Exam Const: GENERAL APPEARANCE: cooperative ORIENTATION/CONSCIOUSNESS: Yes awake, Yes oriented to person, Yes oriented to place and Yes oriented to time HENMT: COMMON NORMALS: normocephalic, atraumatic and hearing grossly normal bilaterally HEAD & SCALP: normocephalic and atraumatic Resp: EFFORT & INSPECTION: No able to speak in complete sentences, Yes tachypneic, Yes respiratory distress, Yes labored, Yes uses accessory muscles and Yes audible wheezes AUSCULTATION: rhonchi and wheezes GI: COMMON NORMALS: Soft to palpation and No hepatosplenomegaly present AUSCULTATION: Yes normoactive bowel sounds PALPATION: Yes Soft to palpation, No Tenderness to palpation present (GI), No Guarding due to palpation present (GI) and Yes No hepatosplenomegaly present Extremity: COMMON NORMALS: normal to inspection, capillary refill normal, no clubbing, cyanosis or edema, no calf tenderness and no pedal edema Neuro: SENSORIUM/ORIENTATION: Yes oriented to person, Yes oriented to place and Yes oriented to time Skin: COMMON NORMALS: no rashes or lesions noted GENERAL SKIN EXAM: no rashes or lesions noted Procedures Intubation sedative: Etomidate Mg Given: 20 paralytic: Vecuronium Mg Given: 10 Assist Device Used: fiber optic device ET Tube Size: 8 ET Tube Uncuffed: No Tube Secured Depth (cm): 22 Tube Secured Location: teeth Tube Placement Confirmation: visualized tube passing through cords, equal breath sounds bilaterally, no breath sounds over epigastrium and confirmation by capnometry Patient Tolerated Procedure: well Intubation Complications: none Course Vital Signs: Vital signs: Vital Signs Temperature 97.7 F 09/03/24 09:00 Pulse Rate 74 09/03/24 11:38 Respiratory Rate 16 09/03/24 12:08 Blood Pressure 128/66 09/03/24 11:38 Pulse Oximetry 95 09/03/24 12:08 Oxygen Delivery Me thod Mechanical Ventil ation 09/03/24 12:07 Oxygen Flow Rate 4 09/03/24 09:00 Fraction of Inspir ed Oxygen 50 09/03/24 12:08 MDM - SOB/Dyspnea Medical Decision Making Patient presents with impending respiratory arrest with patient presents with impending respiratory arrest with respiratory rate at 50-60 with hypoxia. He has significant leukocytosis though some of this may be due to steroids he was just released from the hospital. There is no clear infiltrate on the chest x-ray. Patient was intubated prior to the chest x-ray ET tube placement is appropriate as it is NG. Start patient on broad-spectrum antibiotics admit to ICU for acute respiratory failure with hypoxemia. Discussed with hospitalist. Orders written. Family arrived later reviewed findings and plan with them. Medical Records I reviewed the patient's medical records. Lab Data I reviewed the patient's lab results. 09/03/24 09:16 09/03/24 09:16 Labs/Radiology: Radiology Impressions Chest X-Ray 09/03/24 09:04 IMPRESSION: 1. ETT is 2.7 cm above the severo. 2. NG tube in the stomach. 3. Mild central pulmonary edema. 4. Small left-sided pleural effusion. 5. Cardiomegaly. Laboratory Results WBC 26.53 10^3/uL (3.29-11.43) H 09/03/24 09:16 RBC 3.35 10^6/uL (3.85-5.65) L 09/03/24 09:16 Hgb 10.30 g/dL (11.27-16.99) L 09/03/24 09:16 Hct 34.1 % (37-53) L 09/03/24 09:16 MCV 101.8 fl (82-101) H 09/03/24 09:16 MCH 30.7 pg (27-33) 09/03/24 09:16 MCHC 30.2 g/dL (30-55) 09/03/24 09:16 RDW 13.2 % (12.1-15.1) 09/03/24 09:16 Plt Count 124 10^3/cmm (157-399) L 09/03/24 09:16 MPV 12.4 fL (7.4-10.4) H 09/03/24 09:16 Neut % (Auto) 81.5 % 09/03/24 09:16 Lymph % (Auto) 6.2 % 09/03/24 09:16 Walsh % (Auto) 10.6 % 09/03/24 09:16 Eos % (Auto) 0.0 % 09/03/24 09:16 Baso % (Auto) 0.3 % 09/03/24 09:16 Neut # (Auto) 21.61 10^3/uL (1.8-7.7) H 09/03/24 09:16 Lymph # (Auto) 1.6 10^3/uL (0.8-4.8) 09/03/24 09:16 Walsh # (Auto) 2.8 10^3/uL (0.2-0.9) H 09/03/24 09:16 Eos # (Auto) 0.0 10^3/uL (0.0-0.8) 09/03/24 09:16 Baso # (Auto) 0.1 10^3/uL (0.0-0.1) 09/03/24 09:16 Nucleated RBC % (auto) 0.1 % 09/03/24 09:16 Nucleated RBCs # 0.0 /100WBC 09/03/24 09:16 Specimen Type Arterial 09/03/24 09:00 Sample Site Radial, right 09/03/24 09:00 ABG pH 7.34 (7.35-7.45) L 09/03/24 09:00 ABG pCO2 51.9 mmHg (35-45) H 09/03/24 09:00 ABG pO2 57.8 mmHg (80.0-100.0) L 09/03/24 09:00 ABG PO2/FiO2 Ratio 160 09/03/24 09:00 ABG HCO3 27.8 mmol/L (22-26) H 09/03/24 09:00 ABG O2 Saturation 89.5 09/03/24 09:00 ABG Base Excess 1.3 mmol/L (-2.0-2.0) 09/03/24 09:00 Obed Test Pos 09/03/24 09:00 A-a O2 Gradient 17.9 mmHg (5-10) H 09/03/24 09:00 Hematocrit 32.4 % (42-52) L 09/03/24 09:00 Hgb O2 Saturation 88.0 % (95-100) L 09/03/24 09:00 Carboxyhemoglobin 1.5 %THgb (0.4-20.1) 09/03/24 09:00 Methemoglobin 0.2 % (0.4-1.5) L 09/03/24 09:00 Total Hemoglobin 10.6 g/dL (14-18) L 09/03/24 09:00 Sodium 135.0 mmol/L (131-143) 09/03/24 09:00 Potassium 5.0 mmol/L (3.5-5.0) 09/03/24 09:00 Glucose 315.0 mg/dL (70-115) H 09/03/24 09:00 Ionized Calcium 1.6 mmol/L (1.1-1.4) H 09/03/24 09:00 O2 Delivery Device Nc 09/03/24 09:00 O2 Liters/Min 4.0 % 09/03/24 09:00 FiO2 36.0 % 09/03/24 09:00 Bilingual Trainer ID Amh 09/03/24 09:00 Sodium 134 mmol/L (136-145) L 09/03/24 09:16 Potassium 5.1 mmol/L (3.5-5.1) 09/03/24 09:16 Chloride 98 mmol/L (98-107) 09/03/24 09:16 Carbon Dioxide 26 mmol/L (22-29) 09/03/24 09:16 Anion Gap 15.1 (5-19) 09/03/24 09:16 BUN 14 mg/dL (8-23) 09/03/24 09:16 Creatinine 1.0 mg/dL (0.7-1.2) 09/03/24 09:16 GFR Calculation 73.9 mL/min (90-130) L 09/03/24 09:16 Glucose 380 mg/dL (65-115) H 09/03/24 09:16 Calculated Osmolality 294 mOsm/kg (285-295) 09/03/24 09:16 Lactic Acid 3.6 mmol/L (0.5-2.2) H 09/03/24 09:16 Calcium 11.0 mg/dL (8.5-10.5) H 09/03/24 09:16 Total Bilirubin 0.6 mg/dL (0.15-1.2) 09/03/24 09:16 AST 17 U/L (0-40) 09/03/24 09:16 ALT 17 U/L (0-41) 09/03/24 09:16 Alkaline Phosphatase 93 U/L (40-130) 09/03/24 09:16 Troponin T Baseline 97 ng/L (0-15) H 09/03/24 09:16 Total Protein 6.3 g/dL (6.6-8.7) L 09/03/24 09:16 Albumin 4.0 g/dL (3.5-5.2) 09/03/24 09:16 Globulin 2.3 g/dL (1.3-4.6) 09/03/24 09:16 Urine Color Yellow (Yellow) 09/03/24 09:35 Urine Appearance Slightly cloudy (CLEAR) 09/03/24 09:35 Urine pH 5 (5-7) 09/03/24 09:35 Ur Specific [place] 1.020 (1.005-1.030) 09/03/24 09:35 Urine Protein 3+ (Negative) A 09/03/24 09:35 Urine Glucose (UA) 2+ (Normal) H 09/03/24 09:35 Urine Ketones Negative (Negative) 09/03/24 09:35 Urine Blood 2+ (Negative) A 09/03/24 09:35 Urine Nitrate Negative (Negative) 09/03/24 09:35 Urine Bilirubin Neg (Negative) 09/03/24 09:35 Urine Urobilinogen Norm mg/dL (Negative) 09/03/24 09:35 Ur Leukocyte Esterase Trace (Negative) A 09/03/24 09:35 Urine RBC 11-20 /hpf (0-2) H 09/03/24 09:35 Urine WBC 21-50 /hpf (0-5) H 09/03/24 09:35 Ur Squamous Epith Cells 6-10 /hpf (0-5) 09/03/24 09:35 Amorphous Sediment Trace /hpf 09/03/24 09:35 Urine Bacteria None seen /hpf (NONE) 09/03/24 09:35 Hyaline Casts 44.25 /lpf 09/03/24 09:35 Fine Granular Casts 0-4 /lpf H 09/03/24 09:35 Influenza A (PCR) Negative (Negative) 09/03/24 09:36 Influenza Type B (PCR) Negative (Negative) 09/03/24 09:36 RSV (PCR) Negative (Negative) 09/03/24 09:36 SARS-CoV-2 (PCR) Negative (Negative) 09/03/24 09:36 All radiology interpretation(s) finalized by discharge Critical Care Time Critical Care Time: Critical Care Time: Yes Total Critical Care Time: 35 Attestation: The high probability of a clinically significant, sudden or life threatening deterioration of the patient's cardiovascular respiratory system(s) required my full and direct attention, intervention and personal management. The critical care time is as shown. This time is in addition to time spent performing any reported procedures but includes the following: [x] Data and vital sign review and interpretation [x] Patient assessment, examination and intervention [x] Documentation [x] Medication orders and management Discharge Plan Discharge Patient Disposition: Admitted As Inpatient Admit Provider: Garrison Sierra Clinical Impression: Acute and chronic respiratory failure with hypercapnia, COPD exacerbation Condition: Stable Coding Level of Care Code ED Medical Research Tech for [place]
[2024-09-03 10:43] LABS: Add Urine Microscopic? YES; Bilirubin Urine Neg (Negative); Blood Urine 2+ (Negative); Glucose Urine UA 2+ (Normal); Ketones Urine Negative (Negative); Leukocyte Esterase Urine Trace (Negative); Nitrate Urine Negative (Negative); Protein Urine 3+ (Negative); UA Slide Review UA Slide Review Perf; Urine Appearance Slightly Cloudy (CLEAR); Urine Color Yellow (Yellow); Urobilinogen Urine Norm (Negative); pH Urine 5 (5-7)
[2024-09-03 10:46] LABS: Fine Granular Casts Urine 0-4 /lpf
[2024-09-03 10:47] LABS: Add Urine Culture? Yes; Amorphous Sediment Urine TRACE /hpf
--- NOTE | 2024-09-03 11:04 | ECG_ITS ---
[facility] Date: 2024-[facility]-03 Pat Name: Jim Carney Department: Room: ICU12 Gender: Male Regional Guide: : 1955 Requested By: Dawson Ling Order Number: [id number] Estelita MD: Narciso Frederick M.D. Measurements Intervals [place] Rate: 59 P: 0 AR: 0 QRS: 259 QRSD: 188 T: 105 QT: 488 QTc: 487 Interpretive Statements ELECTRONIC VENTRICULAR PACEMAKER ABNORMAL RHYTHM ECG Compared to ECG 09/03/2024 09:05:48 No significant changes Electronically Signed On 09-03-2024 19:00:14 CDT by Narciso Frederick M.D. [id number]
[2024-09-03 11:18] LABS: Reflex Lactate Order REFLEX LACTIC ORDERD
[2024-09-03 11:26] LABS: ABG PCO2 52.5 mmHg (35-45); ABG PH Result 7.34 (7.35-7.45); Arterial Blood Gas Hematocrit 29.2 % (42-52); Base Excess ABG 2.1 mmol/L (-2.0-2.0); Blood Gas Allen Test Pos; Blood Gas Operator Identificat GD; Blood Gas Sample Site Radial, left; Blood Gas Sample Type Arterial; Blood Gas Tidal Volume 0.45; HCO3 ABG 28.5 mmol/L (22-26); Oxygen Device VENT; PO2 FiO2 Ratio Arterial Blood 236
[2024-09-03 11:30] LABS: Troponin 5 2HR 74.24 ng/L (0-15)
[2024-09-03 11:31] LABS: Troponin 5 2HR Delta -22.76 ABS# (0-10)
--- NOTE | 2024-09-03 12:20 | PM.HP ---
Providers/Chief Complaint Admitting Physician: Garrison Sierra Primary Care Provider: Chanell Lee MD Chief Complaint: resp distress History of Present Illness The patient presents with a recent episode of shortness of breath and rapid breathing that was severe enough to necessitate endotracheal tube placement and initiation of ventilator support. Oxygenation was noted to be borderline with lower oxygen levels and slightly elevated carbon dioxide, raising concerns for respiratory fatigue and potential arrest. Over the past few days, the patient has experienced significant sleep disturbance ? sleeping only 2 hours on Monday, 3 hours on Monday, and none last night. The poor fit of the Bi-PAP mask, which has been leaking and causing a claustrophobic sensation, appears to be contributing to both the sleep disruption and the patient?s anxiety. His reports he did not have a fever but was feeling cold with a measured temperature of 96.8?F, and there is mention of progressive swelling with +3 pitting edema in the feet along with additional swelling noted elsewhere. Review of Systems General: Reports: ROS unobtainable due to medical condition Medications/Allergies Home Medications ?Medication ?Instructions ?Recorded ?Confirmed ?Last Taken ?Type aspirin 81 mg tablet,delayed 81 mg PO DAILY #90 tabs 05/05/22 09/03/24 06/22/24 19:00 Rx release (Adult Low Dose Aspirin) gabapentin 300 mg capsule 900 mg PO BEDTIME 05/05/22 09/03/24 06/22/24 20:00 History lamotrigine 200 mg tablet 200 mg PO BEDTIME 05/05/22 09/03/24 06/22/24 20:00 History pantoprazole 40 mg tablet,delayed 40 mg PO QAM 05/05/22 09/03/24 06/23/24 08:00 History release guaifenesin 600 mg tablet, 600 mg PO BID 05/21/24 09/03/24 05/21/24 History extended release 12 hr (Mucinex) methocarbamol 500 mg tablet 500 mg PO Q12H PRN muscle spasms 05/21/24 09/03/24 Unknown History mecobalamin (vitamin B12) 1,000 1,000 mcg PO DAILY 06/18/24 09/03/24 08/21/24 History mcg chewable tablet melatonin 10 mg capsule 10 mg PO DAILY 06/18/24 09/03/24 06/22/24 20:00 History acetaminophen 500 mg tablet 1,000 mg PO Q6H PRN Fever Or Pain 06/24/24 09/03/24 Unknown History (Tylenol Extra Strength) mirtazapine 30 mg tablet 30 mg PO BEDTIME 06/24/24 09/03/24 06/22/24 20:00 History quetiapine 100 mg tablet 100 mg PO BEDTIME PRN DEPRESSION 06/24/24 09/03/24 Unknown History albuterol sulfate 90 mcg/actuation 2 puff inhalation QID PRN copd 08/21/24 09/03/24 Unknown History aerosol inhaler atorvastatin 80 mg tablet 80 mg PO QPM 08/21/24 09/03/24 Unknown History cholecalciferol (vitamin D3) 50 50 mcg PO DAILY 08/21/24 09/03/24 Unknown History mcg (2,000 unit) tablet (Vitamin D3) cyanocobalamin (vitamin B-12) 1,000 mcg PO DAILY 08/21/24 09/03/24 Unknown History 1,000 mcg tablet fluticasone 250 mcg-salmeterol 50 1 inh inhalation BID 08/21/24 09/03/24 Unknown History mcg/dose blistr powdr for inhalation (Advair Diskus) lithium carbonate 300 mg capsule 300 mg PO BID 08/21/24 09/03/24 Unknown History metformin 500 mg tablet,extended 500 mg PO DAILY 08/21/24 09/03/24 Unknown History release 24 hr montelukast 10 mg tablet 10 mg PO QPM 08/21/24 09/03/24 Unknown History (Singulair) potassium chloride 10 mEq 10 meq PO DAILY 08/21/24 09/03/24 Unknown History tablet,extended release(part/cryst) tiotropium 2.5 mcg-olodaterol 2.5 2 inh inhalation DAILY 08/21/24 09/03/24 Unknown History mcg/actuation mist for inhalation (Stiolto Respimat) furosemide 40 mg tablet 20 mg (1/2 x 40 mg) PO DAILY 30 08/30/24 09/03/24 06/23/24 Rx days #30 tabs levofloxacin 500 mg tablet 500 mg PO DAILY@0600 5 days #5 tabs 08/30/24 09/03/24 Unknown Rx Allergies Allergy/AdvReac Type Severity Reaction Status Date / Time No Known Allergies Allergy Verified 07/08/24 15:01 PFSH Acute PFSH: Medical History (Updated 09/03/24 @ 12:39 by Dawson Foster DO) Anxiety Osteoporosis without pathological fracture Bipolar disorder, unspecified Benign prostatic hyperplasia without lower urinary tract symptoms Gastritis, unspecified, without bleeding Gastrointestinal stromal tumor of stomach Low back pain, unspecified Umbilical hernia without obstruction or gangrene Hyperparathyroidism s/p parathyroid tumor removal Depression Bipolar 1 disorder Gastrointestinal stromal tumor s/p surgery in 2019 in [place]. No chemo or radiation needed. Hypertension Ischemic cardiomyopathy CAD (coronary artery disease) s/p 1 stent in 2015 Cardiac resynchronization therapy defibrillator ([employer]-D) in place Hyperlipidemia, unspecified Surgical History History of lumbar laminectomy in 2013 in [place] Abdominal aortic aneurysm (AAA) without rupture s/p surgery in 2018 or 2019 in [place] Family History Father Heart attack Social History Smoking and tobacco/nicotine status: former use of tobacco/nicotine (2022) Alcohol intake: never Substance/Drug Use: current Vitals/I&O/Wt Last Vital Signs Temp 97.7 F 09/03/24 09:00 Pulse 74 09/03/24 11:38 Resp 16 09/03/24 12:08 BP 128/66 09/03/24 11:38 Pulse Ox 95 09/03/24 12:08 O2 Del Method Mechanical Ventilation 09/03/24 10:30 O2 Flow Rate 4 09/03/24 09:00 FiO2 50 09/03/24 12:08 09/02/24 09/03/24 09/03/24 22:59 06:59 14:59 Intake Total 79.748 / 79.748 Balance 79.748 / 79.748 Weight last 48 hrs Weight 105 kg Weight 107.501 kg Weight 89.358 kg Physical Exam Narrative: Accompanied by his Const: GENERAL APPEARANCE: patient mechanically ventilated HENMT: COMMON NORMALS: oropharynx normal Neck/C-Spine: COMMON NORMALS: no JVD Resp: AUSCULTATION: diminished lung sounds Cardio: COMMON NORMALS: no JVD, regular rhythm, S1 normal heart sound present, S2 normal heart sound present and No murmurs present (Cardio) RHYTHM: regular rhythm HEART SOUNDS: S1 normal heart sound present and S2 normal heart sound present GI: COMMON NORMALS: Normal to inspection, nondistended, normoactive bowel sounds present, Soft to palpation and non-tender PALPATION: Yes Soft to palpation Extremity: COMMON NORMALS: no joint enlargement GENERAL: Yes edema (3+ BLLE) Urinary Catheter Management: Cunningham: Cath Placed During This Visit: yes Urinary Catheter Date of Insertion: 09/03/24 Urinary Catheter Time of Insertion: 09:34 Data 09/03/24 09:16 09/03/24 09:16 Micro: Microbiology 09/03/24 09:27 Blood Culture - Preliminary Blood SPECIMEN COLLECTED 09/03/24 09:20 Blood Culture - Preliminary Blood SPECIMEN COLLECTED A&P Assessment and plan (1) Acute respiratory failure with hypoxia and hypercapnia: With respiratory distress on presentation with tachypnea, hypoxemia, hypercapnia, respiratory acidosis, normally on 3 L nasal cannula oxygen. With respiratory distress decision was made between him and ER provider for intubation and mechanical ventilatory support. He also received a dose of Solu-Medrol 125 mg, Levaquin, Zosyn and linezolid. Continues on mechanical ventilation, with sedation with propofol, but is starting to become restless. Fentanyl is being added at this time. Will continue treatment of CHF exacerbation with diuresis, COPD exacerbation with IV Solu-Medrol, breathing treatments, empiric antibiotic coverage. Monitor for risk of hyperglycemia, hypertension, gastritis, encephalopathy with IV steroid. Follow-up sputum culture, blood culture. Check MRSA PCR With severe underlying anxiety with weaning of sedation tomorrow impression for breathing trial, will likely need Precedex infusion to assist with control of severe anxiety periextubation. Discussed with nursing, respiratory therapist. Reviewed vitals, CBC, ABG, CMP, UA, influenza, COVID, RSV PCR, chest x-ray, EKG ER provider note, discussed with ER provider. (2) CHF exacerbation: With acute systolic and diastolic congestive heart failure with respiratory failure, fluid overload with pulmonary edema, lower extremity edema, will treat with IV diuresis with Lasix IV twice daily 40 mg, monitor intake and output, reassess electrolytes with risk of electrolyte deficiency with IV steroids, risk of ROCKY. Complete troponin EKG series to assess for ischemia. Monitor on telemetry. (3) COPD exacerbation: COPD exacerbation with respiratory distress respiratory failure as above. His reports diminished air entry over the preceding several days. Will continue treatment with IV steroid with Solu-Medrol as above, monitor for risk of complications. Continue IV antibiotic empiric coverage. Breathing treatments. Mechanical ventilatory support, RT assessment and treatment, wean sedation in the morning, breathing trial in the morning. Complicated by severe anxiety. (4) Anxiety: Severe underlying Teodoro making extubation difficulty and preceding hospitalization. Discussed possible need of Precedex drip periextubation. Additionally with anxiety and severe claustrophobia with BiPAP at home with his usual mask. His will be working with respiratory, equipment supplier to see if a different type of mask can be procured for him. Plan Intolerance of BiPAP mask: His will be working with respiratory therapy and equipment supplier to see if there is a different mask that may work better for him without feeling of severe claustrophobia. Ischemic cardiomyopathy: History of EF 25-30%. CAD status post stenting: Continue aspirin, statin, CKD History of gastritis: Continue PPI PDMP PDMP Reviewed: Not Reviewed Attestations Medical Necessity Statement*: Admission over 2 midnights anticipated for assessment management of respiratory failure with hypoxia and hypercapnia, CHF exacerbation, COPD exacerbation. Coding Level of Care Code Critical Care >/= 30 minutes Critical care time (in minutes): 35 The high probability of a clinically significant, sudden or life threatening deterioration, as referenced in this documentation, required my full and direct attention, intervention and personal management. The critical care time shown is in addition to time spent performing any reported separately billable procedures and includes the following: [x] Data and vital sign review and interpretation [x] Patient assessment, examination and intervention [x] Medication orders and management [x] Patient/Family updates as able [x] Care Coordination and Documentation. Diagnoses Acute respiratory failure with hypoxia and hypercapnia J96.01; J96.02 CHF exacerbation I50.9 COPD exacerbation J44.1 Anxiety F41.9
[2024-09-03 12:36] LABS: Lactic Acid level (Lactate) 1.6 mmol/L (0.5-2.2)
[2024-09-03] MEDS: fentaNYL 1,000 MCG/100 ML BAG 2.5 MCG IV (12:49)
[2024-09-03] MEDS: FUROsemide 10 mg/mL SDV 4mL 40 MG IVP (12:49)
[2024-09-03] MEDS: aspirin 81 mg EC Tablet PO (12:59)
[2024-09-03 14:20] LABS: MRSA PCR OZH (swab) NOT DETECTED (Negative)
[2024-09-03] MEDS: propofol 1,000 MG/100 ML INJ 16.08 MG IV ×2 (14:56→19:18)
--- NOTE | 2024-09-03 15:04 | ECG_ITS ---
[facility] Date: 2024-[facility]-03 Pat Name: Jim Carney Department: Room: ICU12 Gender: Male Access Services Assistant: : 1955 Requested By: Dawson Ling Order Number: [id number] Estelita MD: Narciso Frederick M.D. Measurements Intervals [place] Rate: 59 P: 0 MO: 0 QRS: 251 QRSD: 181 T: 103 QT: 511 QTc: 510 Interpretive Statements ELECTRONIC VENTRICULAR PACEMAKER ABNORMAL RHYTHM ECG Compared to ECG 09/03/2024 11:11:53 No significant changes Electronically Signed On 09-03-2024 18:53:55 CDT by Narciso Frederick M.D. [email or web address] [id number]
[2024-09-03 15:12] LABS: Troponin 5 6HR 93.81 ng/L (0-15)
[2024-09-03 15:17] LABS: Troponin 5 6HR Delta -3.19 ng/L (0-12)
[2024-09-03 16:39] LABS: ABG PCO2 47.5 mmHg (35-45); Alveolar-Arterial Oxygen Gradi 20.7 mmHg (5-10); Arterial Blood Gas Hematocrit 26.6 % (42-52); Base Excess ABG 3.7 mmol/L (-2.0-2.0); Blood Gas Allen Test Pos; Blood Gas Operator Identificat AMH; Blood Gas Sample Site Radial, left; Blood Gas Sample Type Arterial; Blood Gas Tidal Volume 0.45; Carboxyhemoglobin 1.4 %THgb (0.4-20.1); HCO3 ABG 29.1 mmol/L (22-26); HGB O2 Sat 93.3 % (95-100); Ionized Calcium Level - ABG 1.5 mmol/L (1.1-1.4); Methemoglobin 0.6 % (0.4-1.5); Oxygen Device VENT; Oxygen Saturation ABG 95.1; PO2 ABG 68.7 mmHg (80.0-100.0); PO2 FiO2 Ratio Arterial Blood 171; Potassium Level - ABG 4.9 mmol/L (3.5-5.0); Total Hemoglobin 8.7 g/dL (14-18)
[2024-09-03] MEDS: enoxaparin 40 mg/0.4 mL Syringe SUBCUT (16:39)
[2024-09-03] MEDS: pantoprazole 40 mg SDV IVP (16:39)
[2024-09-03] MEDS: nystatin cream 30 gm 1 APPLIC TOPICAL (16:40)
[2024-09-03] MEDS: methylPREDNISolone sod succ 40 mg/mL INJ IVP (16:41)
[2024-09-03] MEDS: montelukast sodium 10 mg Tablet PO (17:08)
[2024-09-03] MEDS: lithium carbonate 300 mg Capsule PO (17:08)
[2024-09-03] MEDS: atorvastatin 40 mg Tablet PO (17:08)
[2024-09-04] VITALS (86 sets, daily range): BP systolic 97–138; BP diastolic 57–107; PULSE 60–99; RESP 15–19; TEMP 36.6; O2SAT 94–100
[2024-09-04] MEDS: methylPREDNISolone sod succ 40 mg/mL INJ IVP ×3 (00:07→16:18)
[2024-09-04] MEDS: propofol 1,000 MG/100 ML INJ 16.08 MG IV (01:20)
[2024-09-04] MEDS: piperacillin-tazobactam 3.375 GM in sodium chloride 0.9% (plus) 50 ML IV ×3 (01:21→17:16)
[2024-09-04] MEDS: ipratropium-albuterol 3 mL Neb INHALATION ×4 (03:00→20:15)
[2024-09-04] MEDS: FUROsemide 10 mg/mL SDV 4mL 40 MG IVP ×2 (03:13→16:18)
[2024-09-04 04:05] LABS: ABG PCO2 44.4 mmHg (35-45); ABG PH Result 7.43 (7.35-7.45); Alveolar-Arterial Oxygen Gradi 20.8 mmHg (5-10); Arterial Blood Gas Hematocrit 27.8 % (42-52); Base Excess ABG 4.2 mmol/L (-2.0-2.0); Blood Gas Allen Test Pos; Blood Gas Operator Identificat JDB; Blood Gas Sample Site Brachial, right; Blood Gas Sample Type Arterial; Blood Gas Tidal Volume 0.45; Carboxyhemoglobin 1.2 %THgb (0.4-20.1); HCO3 ABG 29.1 mmol/L (22-26); HGB O2 Sat 92.7 % (95-100); Ionized Calcium Level - ABG 1.4 mmol/L (1.1-1.4); Methemoglobin 1.4 % (0.4-1.5); Oxygen Device VENT; Oxygen Saturation ABG 95.2; PO2 ABG 70.8 mmHg (80.0-100.0); PO2 FiO2 Ratio Arterial Blood 177; Potassium Level - ABG 4.7 mmol/L (3.5-5.0); Total Hemoglobin 9.1 g/dL (14-18)
[2024-09-04 04:12] LABS: Basophils % 0.1 %; Hematocrit 28.1 % (37-53); Lymphocytes # 0.7 10^3/uL (0.8-4.8); Lymphocytes % 5.5 %; Mean Corpuscular Hemoglobin 31.3 pg (27-33); Mean Corpuscular Volume 101.1 fl (82-101); Monocytes # 0.4 10^3/uL (0.2-0.9); Monocytes % 3.1 %; Neutrophils # 11.36 10^3/uL (1.8-7.7); Neutrophils % 90.6 %; Nucleated Red Blood Cells % 0.2 %; Platelet Count 100 10^3/cmm (157-399); Red Blood Count 2.78 10^6/uL (3.85-5.65); Red Cell Distribution Width 12.9 % (12.1-15.1); White Blood Count 12.54 10^3/uL (3.29-11.43)
[2024-09-04 04:40] LABS: Anion Gap 15.2 (5-19); Blood Urea Nitrogen 22 mg/dL (8-23); Calcium 10.8 mg/dL (8.5-10.5); Carbon Dioxide 26 mmol/L (22-29); Chloride 98 mmol/L (98-107); Creatinine Clr Calc Pharmacy 61.0705; Glomerular Filtration Rate 54.6 mL/min (90-130); Glucose 241 mg/dL (65-115); Osmolality Calculated 289 mOsm/kg (285-295); Potassium 5.2 mmol/L (3.5-5.1); Sodium 134 mmol/L (136-145)
[2024-09-04] MEDS: chlorhexidine gluconate 4% Btl 118 mL 1 APPLIC TOPICAL (05:31)
[2024-09-04] MEDS: fentaNYL 1,000 MCG/100 ML BAG 5 MCG IV (05:32)
[2024-09-04] MEDS: propofol 1,000 MG/100 ML INJ 18.77 MG IV (05:34)
--- NOTE | 2024-09-04 05:34 | PC.NURSE ---
Addendum entered by Sam Martini RN 09/04/24 05:37: witnessed by this nurse. Original Note: Fentanyl bag changed at this time as bag empty.
[2024-09-04 08:15] LABS: Creatine Phosphokinase 15 U/L (39-308)
[2024-09-04] MEDS: linezolid premix 600 MG/300 ML PREMIX IV (09:02)
[2024-09-04] MEDS: aspirin 81 mg EC Tablet PO (09:02)
[2024-09-04] MEDS: nystatin cream 30 gm 1 APPLIC TOPICAL ×2 (09:03→18:12)
[2024-09-04] MEDS: lithium carbonate 300 mg Capsule PO ×2 (09:03→17:16)
--- NOTE | 2024-09-04 09:05 | P.PN_ITS ---
Subjective 2 Subjective: Opens eyes, looks around the room to shoulder touch. Vitals/I&O/Wt Last Vital Signs Temp 97.9 F 09/04/24 01:15 Pulse 60 09/04/24 08:04 Resp 16 09/04/24 08:04 BP 131/75 09/04/24 04:00 Pulse Ox 100 09/04/24 08:04 O2 Del Method Mechanical Ventilation 09/04/24 08:04 O2 Flow Rate 4 09/03/24 09:00 FiO2 40 09/04/24 08:04 09/03/24 09/04/24 09/04/24 22:59 06:59 14:59 Intake Total 434.424 / 1017.041 306.439 / 1323.480 32.535 / 32.535 Output Total 400 / 400 600 / 1000 Balance 34.424 / 617.041 -293.561 / 323.480 32.535 / 32.535 Weight last 48 hrs Weight 105 kg Weight 105 kg Weight 107.501 kg Weight 89.358 kg Physical Exam 2 Const: GENERAL APPEARANCE: patient mechanically ventilated HENMT: COMMON NORMALS: oropharynx normal Neck/C-Spine: COMMON NORMALS: no JVD Resp: COMMON NORMALS: clear to auscultation bilaterally AUSCULTATION: clear to auscultation bilaterally Cardio: COMMON NORMALS: no JVD, regular rhythm, S1 normal heart sound present, S2 normal heart sound present and No murmurs present (Cardio) RHYTHM: regular rhythm HEART SOUNDS: S1 normal heart sound present and S2 normal heart sound present GI: COMMON NORMALS: Normal to inspection, nondistended, normoactive bowel sounds present, Soft to palpation and non-tender PALPATION: Yes Soft to palpation Extremity: COMMON NORMALS: no joint enlargement GENERAL: Yes edema (3+ BLLE) Urinary Catheter Management: Cunningham: Cath Placed During This Visit: yes Reason for Continuing Indwelling Catheter: Accurate Measurement of Urinary Output in Critically Ill Patients Urinary Catheter Date of Insertion: 09/03/24 Urinary Catheter Time of Insertion: 09:34 Data 09/04/24 03:24 09/04/24 03:24 Micro: Microbiology 09/03/24 09:35 Urine Culture - Preliminary Urine,Clean Catch 09/03/24 09:50 Gram Stain - Final Sputum - Endotracheal Tube Aspirate 09/03/24 09:27 Blood Culture - Preliminary Blood SPECIMEN COLLECTED 09/03/24 09:20 Blood Culture - Preliminary Blood SPECIMEN COLLECTED A&P Assessment and plan (1) Acute respiratory failure with hypoxia and hypercapnia: Reviewed ventilator settings, vitals, CBC, ABG, CMP, discussed with nursing, respiratory place, respiratory parameters with improvement, tachypnea resolved, tachycardia resolved, oxygenation requirement down from 100% to 40% FiO2. Improvement in air entry with clear lung sounds. Without sign of ongoing fluid overload on lung assessment bilateral front upper as well as lower lateral chest. Does have peripheral edema. Sedation being weaned, so far waking up and is following directions. Significant difficulties with weaning sedation during prior extubation attempt, Precedex requested per protocol to assist with EMILIE extubation severe anxiety control. Continue to wean sedation, breathing trial. Will continue treatment of CHF exacerbation with diuresis, COPD exacerbation with IV Solu-Medrol, breathing treatments, empiric antibiotic coverage. Monitor for risk of hyperglycemia, hypertension, gastritis, encephalopathy with IV steroid. Follow-up sputum culture, blood culture. Reviewed MRSA PCR, negative (2) CHF exacerbation: Continue IV diuresis. Has not achieved negative balance. Continue Lasix 40 mg IV twice daily. Noted mild increase in creatinine up to 1.3 will not increase Lasix for now. Reassess renal function. With acute systolic and diastolic congestive heart failure with respiratory failure, fluid overload with pulmonary edema, lower extremity edema, will treat with IV diuresis with Lasix IV twice daily 40 mg, monitor intake and output, reassess electrolytes with risk of electrolyte deficiency with IV steroids, risk of ROCKY. Complete troponin EKG series to assess for ischemia. Monitor on telemetry. (3) COPD exacerbation: COPD exacerbation with respiratory distress respiratory failure as above. His reports diminished air entry over the preceding several days. Will continue treatment with IV steroid with Solu-Medrol as above, monitor for risk of complications. Continue IV antibiotic empiric coverage. Breathing treatments. Mechanical ventilatory support, RT assessment and treatment, wean sedation in the morning, breathing trial in the morning. Complicated by severe anxiety. (4) Anxiety: Severe underlying Teodoro making extubation difficulty and preceding hospitalization. Discussed possible need of Precedex drip periextubation. Additionally with anxiety and severe claustrophobia with BiPAP at home with his usual mask. His will be working with respiratory, equipment supplier to see if a different type of mask can be procured for him. Plan Intolerance of BiPAP mask: His will be working with respiratory therapy and equipment supplier to see if there is a different mask that may work better for him without feeling of severe claustrophobia. Ischemic cardiomyopathy: History of EF 25-30%. CAD status post stenting: Continue aspirin, statin, CKD History of gastritis: Continue PPI PDMP PDMP Reviewed: Not Reviewed Attestations 2 Medical Necessity Statement*: Continue admission for respiratory failure, CHF exacerbation, COPD exacerbation, and general with severe underlying anxiety, cardiomyopathy with EF 25 to 30%, additional comorbidities as above. Coding Level of Care Code Critical Care >/= 30 minutes Critical care time (in minutes): 40 The high probability of a clinically significant, sudden or life threatening deterioration, as referenced in this documentation, required my full and direct attention, intervention and personal management. The critical care time shown is in addition to time spent performing any reported separately billable procedures and includes the following: [x] Data and vital sign review and interpretation [x ] Patient assessment, examination and intervention [x] Medication orders and management [x] Patient/Family updates as able [x] Care Coordination and Documentation. Diagnoses Acute respiratory failure with hypoxia and hypercapnia J96.01; J96.02 CHF exacerbation I50.9 COPD exacerbation J44.1 Anxiety F41.9
[2024-09-04] MEDS: dexmedeTOMIDine 0.9 % NaCL 400 MCG/100 ML PREMIX IV (09:30)
[2024-09-04] MEDS: propofol 1,000 MG/100 ML INJ 10.72 MG IV (10:24)
[2024-09-04] MEDS: pantoprazole 40 mg SDV IVP (16:17)
[2024-09-04] MEDS: enoxaparin 40 mg/0.4 mL Syringe SUBCUT (16:17)
--- NOTE | 2024-09-04 16:41 | PC.NURSE ---
Addendum entered by Maggy Wyman RN 09/04/24 16:44: Witnessed waste Original Note: 90.933 mls of propofol and 23.709 of fentanyl were wasted by this nurse and witnessed by VAISHALI Winter.
[2024-09-04] MEDS: atorvastatin 40 mg Tablet PO (17:16)
[2024-09-04] MEDS: montelukast sodium 10 mg Tablet PO (17:16)
[2024-09-04] MEDS: dexmedeTOMIDine 0.9 % NaCL 400 MCG/100 ML PREMIX 10.5 MCG IV (17:32)
[2024-09-04] MEDS: lanolin oint 7 gm 1 APPLIC TOPICAL (18:11)
--- NOTE | 2024-09-04 18:45 | PC.NURSE ---
Patient was placed on a breathing trial by respiratory therapist per Dr. Kelly's orders. Patient was successful with their breathing trial with precedex on board for anxiety. Doctor ordered to extubate and patient was successfully extubated at 1455.
[2024-09-04] MEDS: gabapentin 300 mg Capsule 900 MG PO (21:30)
[2024-09-04] MEDS: mirtazapine 30 mg Tablet PO (21:30)
[2024-09-04] MEDS: lamoTRIgine 100 mg Tablet 200 MG PO (21:31)
[2024-09-04] MEDS: linezolid premix 600 MG/300 ML PREMIX 300 MG IV (21:31)
[2024-09-04] MEDS: quetiapine 100 mg Tablet PO (21:32)
[2024-09-05] VITALS (77 sets, daily range): BP systolic 109–166; BP diastolic 61–97; PULSE 60–82; RESP 16–20; TEMP 36.4–36.8; O2SAT 87–100
[2024-09-05] MEDS: methylPREDNISolone sod succ 40 mg/mL INJ IVP ×3 (00:49→17:29)
[2024-09-05] MEDS: piperacillin-tazobactam 3.375 GM in sodium chloride 0.9% (plus) 50 ML IV ×3 (01:02→17:29)
[2024-09-05] MEDS: ipratropium-albuterol 3 mL Neb INHALATION ×3 (01:23→12:45)
[2024-09-05] MEDS: dexmedeTOMIDine 0.9 % NaCL 400 MCG/100 ML PREMIX 10.5 MCG IV (02:16)
[2024-09-05] MEDS: FUROsemide 10 mg/mL SDV 4mL 40 MG IVP (04:14)
[2024-09-05 04:27] LABS: Basophils % 0.1 %; Hematocrit 29.1 % (37-53); Lymphocytes # 0.5 10^3/uL (0.8-4.8); Lymphocytes % 3.8 %; Mean Corpuscular HGB Conc 31.3 g/dL (30-55); Mean Corpuscular Hemoglobin 31.3 pg (27-33); Monocytes # 0.4 10^3/uL (0.2-0.9); Monocytes % 3.3 %; Neutrophils % 91.4 %; Nucleated Red Blood Cells # 0.1 /100WBC; Nucleated Red Blood Cells % 0.7 %; Platelet Count 156 10^3/cmm (157-399); Red Blood Count 2.91 10^6/uL (3.85-5.65); Red Cell Distribution Width 13.2 % (12.1-15.1); White Blood Count 13.14 10^3/uL (3.29-11.43)
[2024-09-05 04:45] LABS: Blood Urea Nitrogen 32 mg/dL (8-23); Calcium 10.5 mg/dL (8.5-10.5); Carbon Dioxide 28 mmol/L (22-29); Chloride 101 mmol/L (98-107); Creatinine Clr Calc Pharmacy 56.7083; Glomerular Filtration Rate 50.1 mL/min (90-130); Glucose 199 mg/dL (65-115); Osmolality Calculated 298 mOsm/kg (285-295); Sodium 138 mmol/L (136-145)
[2024-09-05] MEDS: aspirin 81 mg EC Tablet PO (08:45)
[2024-09-05] MEDS: linezolid premix 600 MG/300 ML PREMIX 300 MG IV ×2 (08:45→20:09)
[2024-09-05] MEDS: lithium carbonate 300 mg Capsule PO ×2 (08:45→17:29)
[2024-09-05] MEDS: nystatin cream 30 gm 1 APPLIC TOPICAL ×2 (08:45→17:29)
--- NOTE | 2024-09-05 11:12 | USCV_ITS ---
Jim Carney Age: 68 Gender: M : 1955 Exam Date: 09/05/2024 12:29 Ordering Phys: Garrison Sierra MD Technologist: LOIS Exam Location: [facility] [place] Indication: Hematoma near rt AC fossa HISTORY: Hemtoma rt elbow post IV. PROCEDURES: Limited exam of the AOI per nurse. FINDINGS: Possible small hematoma in area. ?Acute basilic V SVT CONCLUSIONS Acute SVT in the RIGHT basilic vein Km Marie MD (Electronically Signed) Final Date: 05 September 2024 14:07 S
--- NOTE | 2024-09-05 13:34 | PC.NURSE ---
Patient's arm was assessed after a peripheral IV was taken out. The arm was red and was hard to palpation. Dr. Sierra was notified and he ordered to get a venous dupplex to rule out any hematomas.
--- NOTE | 2024-09-05 13:36 | PC.NURSE ---
Patient was adamant about bringing his inhaler from home. Dr. Sierra was notified about this and he stated that it was okay to let him have his inhaler and to stop breathing treatments here.
[2024-09-05] MEDS: acetaminophen 325 mg Tablet 650 MG PO (14:15)
[2024-09-05] MEDS: pantoprazole 40 mg SDV IVP (14:16)
[2024-09-05] MEDS: enoxaparin 40 mg/0.4 mL Syringe SUBCUT (14:45)
[2024-09-05] MEDS: HYDROcodone-acetaminophen 5-325 mg Tablet 1 TAB PO ×2 (14:47→21:20)
--- NOTE | 2024-09-05 16:22 | P.PN_ITS ---
Subjective 2 Subjective: Gave close he is feeling much better, has been improving. However, with getting up becoming jittery, dyspneic with ambulation. Vitals/I&O/Wt Last Vital Signs Temp 97.9 F 09/05/24 09:15 Pulse 62 09/05/24 12:55 Resp 18 09/05/24 12:45 BP 145/71 09/05/24 12:15 Pulse Ox 96 09/05/24 12:45 O2 Del Method Nasal Cannula 09/05/24 12:45 O2 Flow Rate 3 09/05/24 12:45 FiO2 30 09/04/24 14:49 09/05/24 09/05/24 09/05/24 06:59 14:59 22:59 Intake Total 441.7 / 1223.178 313.682 / 313.682 Output Total 1500 / 1750 1050 / 1050 Balance -1058.3 / -526.822 -736.318 / -736.318 Weight last 48 hrs Weight 103.782 kg Weight 105 kg Physical Exam 2 Const: GENERAL APPEARANCE: patient mechanically ventilated HENMT: COMMON NORMALS: oropharynx normal Neck/C-Spine: COMMON NORMALS: no JVD Resp: COMMON NORMALS: clear to auscultation bilaterally AUSCULTATION: clear to auscultation bilaterally and diminished lung sounds Cardio: COMMON NORMALS: no JVD, regular rhythm, S1 normal heart sound present, S2 normal heart sound present and No murmurs present (Cardio) RHYTHM: regular rhythm HEART SOUNDS: S1 normal heart sound present and S2 normal heart sound present GI: COMMON NORMALS: Normal to inspection, nondistended, normoactive bowel sounds present, Soft to palpation and non-tender PALPATION: Yes Soft to palpation Extremity: COMMON NORMALS: no joint enlargement GENERAL: Yes edema (3+ BLLE) Urinary Catheter Management: Cunningham: Cath Placed During This Visit: yes Reason for Continuing Indwelling Catheter: Accurate Measurement of Urinary Output in Critically Ill Patients Urinary Catheter Date of Insertion: 09/03/24 Urinary Catheter Time of Insertion: 09:34 Data 09/05/24 03:50 09/05/24 03:50 Micro: Microbiology 09/03/24 09:50 Gram Stain - Final Sputum - Endotracheal Tube Aspirate Sputum Culture - Final 09/03/24 09:35 Urine Culture - Final Urine,Clean Catch A&P Assessment and plan (1) Acute respiratory failure with hypoxia and hypercapnia: On 3 L nasal cannula, reviewed vitals, CBC, BMP, subjectively he is improving. He is maintain saturation 3 L at rest, however, with exertion becoming tremulous, dyspneic, easily fatigued. PT assessment requested. Continue oxygen support. Will hold evening diuretic for now due to some worsening renal function, creatinine up to 1.4. Reassess renal function. Continue Solu-Medrol, breathing treatments, empiric antibiotic coverage. Reviewed vitals, CBC, ABG, CMP, discussed with nursing, nurse case manager, respiratory parameters with improvement, tachypnea resolved, tachycardia resolved, Improvement in air entry with clear lung sounds. Without sign of ongoing fluid overload on lung assessment bilateral front upper as well as lower lateral chest. Does have peripheral edema. Sedation being weaned, so far waking up and is following directions. Significant difficulties with weaning sedation during prior extubation attempt, Precedex requested per protocol to assist with EMILIE extubation severe anxiety control. Continue to wean sedation, breathing trial. Will continue treatment of CHF exacerbation with diuresis, COPD exacerbation with IV Solu-Medrol, breathing treatments, empiric antibiotic coverage. Monitor for risk of hyperglycemia, hypertension, gastritis, encephalopathy with IV steroid. Follow-up sputum culture, blood culture. Reviewed MRSA PCR, negative (2) CHF exacerbation: Noted worsening ROCKY, creatinine at 1.4. Hold afternoon dose of Lasix. Reassess renal function. In negative balance. Monitor for risk of electro deficiency, worsening ROCKY. Reassess renal function. With acute systolic and diastolic congestive heart failure with respiratory failure, fluid overload with pulmonary edema, lower extremity edema, will treat with IV diuresis with Lasix IV twice daily 40 mg, monitor intake and output, reassess electrolytes with risk of electrolyte deficiency with IV steroids, risk of ROCKY. Complete troponin EKG series to assess for ischemia. Monitor on telemetry. (3) COPD exacerbation: Continue IV steroids, breathing treatments. COPD exacerbation with respiratory distress respiratory failure as above. His reports diminished air entry over the preceding several days. Will continue treatment with IV steroid with Solu-Medrol as above, monitor for risk of complications. Continue IV antibiotic empiric coverage. Breathing treatments. Mechanical ventilatory support, RT assessment and treatment, wean sedation in the morning, breathing trial in the morning. Complicated by severe anxiety. (4) Anxiety: Severe underlying Teodoro making extubation difficulty and preceding hospitalization. Discussed possible need of Precedex drip periextubation. Additionally with anxiety and severe claustrophobia with BiPAP at home with his usual mask. His will be working with respiratory, equipment supplier to see if a different type of mask can be procured for him. Plan ROCKY: Creatinine up to 1.4. Hold IV diuretic in the afternoon. Reassess renal function. Hematoma right antecubital fossa incidentally noted on duplex ultrasound of right upper extremity due to some swelling. Pressure was held. Intolerance of BiPAP mask: His will be working with respiratory therapy and equipment supplier to see if there is a different mask that may work better for him without feeling of severe claustrophobia. Ischemic cardiomyopathy: History of EF 25-30%. CAD status post stenting: Continue aspirin, statin, CKD History of gastritis: Continue PPI PDMP PDMP Reviewed: Not Reviewed Attestations 2 Medical Necessity Statement*: Continue admission for respiratory failure, CHF exacerbation complicated by ROCKY, COPD exacerbation, and general with severe underlying anxiety, cardiomyopathy with EF 25 to 30%, additional comorbidities as above. and High MDM includes amount and/or complexity of data reviewed/ordered [ resulted lab(s)/test(s), ordered lab(s)/test(s) and other healthcare professional discussion] and described risk of complication, morbidity or mortality of management as documented Diagnoses Acute respiratory failure with hypoxia and hypercapnia J96.01; J96.02 CHF exacerbation I50.9 COPD exacerbation J44.1 Anxiety F41.9
[2024-09-05] MEDS: atorvastatin 40 mg Tablet PO (17:29)
[2024-09-05] MEDS: montelukast sodium 10 mg Tablet PO (17:29)
[2024-09-05] MEDS: lamoTRIgine 100 mg Tablet 200 MG PO (20:08)
[2024-09-05] MEDS: mirtazapine 30 mg Tablet PO (20:08)
[2024-09-05] MEDS: gabapentin 300 mg Capsule 900 MG PO (20:08)
[2024-09-05] MEDS: quetiapine 100 mg Tablet PO (21:20)
--- NOTE | 2024-09-05 22:38 | PC.NURSE ---
Patient transferred to room 259 bed 2 via wheelchair. Report given to Bailey ENRIQUEZ prior.
[2024-09-06] VITALS (8 sets, daily range): BP systolic 156–189; BP diastolic 76–95; PULSE 60–79; RESP 16–20; TEMP 36.3–36.8; O2SAT 90–95; BMI 35.6
[2024-09-06] MEDS: methylPREDNISolone sod succ 40 mg/mL INJ IVP ×3 (01:05→17:57)
[2024-09-06] MEDS: piperacillin-tazobactam 3.375 GM in sodium chloride 0.9% (plus) 50 ML IV ×3 (01:05→17:59)
[2024-09-06] MEDS: methocarbamol 500 mg Tablet PO (01:16)
[2024-09-06] MEDS: acetaminophen 325 mg Tablet 650 MG PO (01:16)
[2024-09-06 05:01] LABS: Basophils % 0.1 %; Hematocrit 33.7 % (37-53); Lymphocytes # 0.6 10^3/uL (0.8-4.8); Lymphocytes % 3.5 %; Mean Corpuscular HGB Conc 30.6 g/dL (30-55); Mean Corpuscular Hemoglobin 31.2 pg (27-33); Mean Corpuscular Volume 102.1 fl (82-101); Mean Platelet Volume 11.3 fL (7.4-10.4); Monocytes # 0.5 10^3/uL (0.2-0.9); Monocytes % 2.6 %; Neutrophils # 15.87 10^3/uL (1.8-7.7); Neutrophils % 91.3 %; Nucleated Red Blood Cells # 0.1 /100WBC; Nucleated Red Blood Cells % 0.7 %; Platelet Count 216 10^3/cmm (157-399); Red Cell Distribution Width 13.3 % (12.1-15.1); White Blood Count 17.37 10^3/uL (3.29-11.43)
[2024-09-06 05:13] LABS: Anion Gap 15.8 (5-19); Blood Urea Nitrogen 49 mg/dL (8-23); Carbon Dioxide 26 mmol/L (22-29); Chloride 98 mmol/L (98-107); Creatinine Clr Calc Pharmacy 43.8433; Glomerular Filtration Rate 37.5 mL/min (90-130); Glucose 249 mg/dL (65-115); Osmolality Calculated 301 mOsm/kg (285-295); Potassium 4.8 mmol/L (3.5-5.1); Sodium 135 mmol/L (136-145)
[2024-09-06] MEDS: lithium carbonate 300 mg Capsule PO ×2 (07:34→17:58)
[2024-09-06] MEDS: linezolid premix 600 MG/300 ML PREMIX 300 MG IV ×2 (07:34→20:54)
[2024-09-06] MEDS: aspirin 81 mg EC Tablet PO (07:34)
[2024-09-06] MEDS: nystatin cream 30 gm 1 APPLIC TOPICAL ×2 (07:42→18:00)
--- NOTE | 2024-09-06 10:42 | US_ITS ---
WS: [id number] ULTRASOUND RENAL TECHNIQUE: Ultrasound examination of both kidneys. CLINICAL INFORMATION: ROCKY FINDINGS: RIGHT: RIGHT simple renal cyst measuring 1.9 x 2.0 1.7 cm Right kidney is normal in size and appearance. Echogenicity: Normal. Cortical thickness: 1.0 cm; Normal. Hydronephrosis: None. Perinephric fluid: None. Right kidney measures: 9.7 cm x 4.8 cm x 4.8 cm. LEFT: LEFT upper pole renal cyst measures 1.5 x 1.3 x 1.3 cm Left kidney is normal in size and appearance. Echogenicity: Normal. Cortical thickness: 1.1 cm; Normal. Hydronephrosis: None. Perinephric fluid: None. Left kidney measures: 9.2 cm x 5.3 cm x 4.8 cm. Normal visualized aorta. US/US renal BI* [id number] IMPRESSION: 1. No hydronephrosis in either kidney. 2. Simple bilateral renal cysts described above.
--- NOTE | 2024-09-06 10:42 | PM.PN ---
Subjective Subjective: Subjectively he feels he is improving. Vitals/I&O/Wt Last Vital Signs Temp 98.2 F 09/06/24 07:12 Pulse 60 09/06/24 07:12 Resp 18 09/06/24 07:12 BP 161/79 09/06/24 07:12 Pulse Ox 94 09/06/24 07:12 O2 Del Method Nasal Cannula 09/06/24 07:12 O2 Flow Rate 3 09/06/24 07:12 FiO2 30 09/04/24 14:49 09/05/24 09/06/24 09/06/24 22:59 06:59 14:59 Intake Total 720 / 1033.682 50 / 1083.682 120 / 120 Output Total 700 / 1750 Balance 20 / -716.318 50 / -666.318 120 / 120 Weight last 48 hrs Weight 103.419 kg Weight 103.782 kg Physical Exam Const: GENERAL APPEARANCE: patient mechanically ventilated HENMT: COMMON NORMALS: oropharynx normal Neck/C-Spine: COMMON NORMALS: no JVD Resp: COMMON NORMALS: clear to auscultation bilaterally AUSCULTATION: clear to auscultation bilaterally and diminished lung sounds Cardio: COMMON NORMALS: no JVD, regular rhythm, S1 normal heart sound present, S2 normal heart sound present and No murmurs present (Cardio) RHYTHM: regular rhythm HEART SOUNDS: S1 normal heart sound present and S2 normal heart sound present GI: COMMON NORMALS: Normal to inspection, nondistended, normoactive bowel sounds present, Soft to palpation and non-tender PALPATION: Yes Soft to palpation Extremity: COMMON NORMALS: no joint enlargement GENERAL: Yes edema (2+ BLLE) Urinary Catheter Management: Cunningham: Cath Placed During This Visit: yes Reason for Continuing Indwelling Catheter: Other Urinary Catheter Date of Insertion: 09/03/24 Urinary Catheter Time of Insertion: 09:34 Data 09/06/24 04:45 09/06/24 04:45 Micro: Microbiology 09/03/24 09:50 Gram Stain - Final Sputum - Endotracheal Tube Aspirate Sputum Culture - Final 09/03/24 09:35 Urine Culture - Final Urine,Clean Catch A&P Assessment and plan (1) CHF exacerbation: ROCKY noted with some worsening again today at 1.8. Requested renal ultrasound. Hold diuretics further. Reviewed ultrasound, without hydronephrosis. Reassess chemistry: To see stabilization prior to discharge. Requesting urine urea, urine creatinine to see if may help distinguish prerenal versus renal causes. Discussed with nursing, employment evaluator/case manager. Reassess renal function. With acute systolic and diastolic congestive heart failure with respiratory failure, fluid overload with pulmonary edema, lower extremity edema, will treat with IV diuresis with Lasix IV twice daily 40 mg, monitor intake and output, reassess electrolytes with risk of electrolyte deficiency with IV steroids, risk of ROCKY. Complete troponin EKG series to assess for ischemia. Monitor on telemetry. (2) COPD exacerbation: Transition to oral corticosteroids with prednisone 40 mg daily, continue breathing treatments. COPD exacerbation with respiratory distress respiratory failure as above. His reports diminished air entry over the preceding several days. Will continue treatment with IV steroid with Solu-Medrol as above, monitor for risk of complications. Continue IV antibiotic empiric coverage. Breathing treatments. Mechanical ventilatory support, RT assessment and treatment, wean sedation in the morning, breathing trial in the morning. Complicated by severe anxiety. (3) Acute respiratory failure with hypoxia and hypercapnia: Overall some improvement in oxygenation, so far study on 3 L nasal cannula. On 3 L nasal cannula, reviewed vitals, CBC, BMP, subjectively he is improving. He is maintain saturation 3 L at rest, however, with exertion becoming tremulous, dyspneic, easily fatigued. PT assessment requested. Continue oxygen support. Will hold evening diuretic for now due to some worsening renal function, creatinine up to 1.4. Reassess renal function. Continue Solu-Medrol, breathing treatments, empiric antibiotic coverage. Reviewed vitals, CBC, ABG, CMP, discussed with nursing, employment evaluator/case manager, respiratory parameters with improvement, tachypnea resolved, tachycardia resolved, Improvement in air entry with clear lung sounds. Without sign of ongoing fluid overload on lung assessment bilateral front upper as well as lower lateral chest. Does have peripheral edema. Sedation being weaned, so far waking up and is following directions. Significant difficulties with weaning sedation during prior extubation attempt, Precedex requested per protocol to assist with EMILIE extubation severe anxiety control. Continue to wean sedation, breathing trial. Will continue treatment of CHF exacerbation with diuresis, COPD exacerbation with IV Solu-Medrol, breathing treatments, empiric antibiotic coverage. Monitor for risk of hyperglycemia, hypertension, gastritis, encephalopathy with IV steroid. Follow-up sputum culture, blood culture. Reviewed MRSA PCR, negative (4) Anxiety: Severe underlying anxiety making extubation difficulty and preceding hospitalization. Discussed possible need of Precedex drip periextubation. Additionally with anxiety and severe claustrophobia with BiPAP at home with his usual mask. His will be working with respiratory, equipment supplier to see if a different type of mask can be procured for him. (5) Herpes labialis: Add renally dosed valacyclovir (6) ROCKY (acute kidney injury): Further worsening of creatinine up to 1.8. BUN 49. Obtain urine urea, urine creatinine. Obtained and reviewed urine ultrasound, no obstructive uropathy. Hold IV diuretic in the afternoon. Reassess renal function. Plan Insomnia: Add melatonin. Right arm superficial thrombophlebitis: Basilic vein noted on venous duplex. Elevate extremity. Intolerance of BiPAP mask: New mask is ordered and should be arriving soon per discussion with employment evaluator/case manager. Ischemic cardiomyopathy: History of EF 25-30%. CAD status post stenting: Continue aspirin, statin, CKD History of gastritis: Continue PPI PDMP PDMP Reviewed: Not Reviewed Attestations Medical Necessity Statement*: Continue admission for respiratory failure, CHF exacerbation complicated by ROCKY, COPD exacerbation, and general with severe underlying anxiety, cardiomyopathy with EF 25 to 30%, additional comorbidities as above. and High MDM includes amount and/or complexity of data reviewed/ordered [ resulted lab(s)/test(s), ordered lab(s)/test(s) and other healthcare professional discussion] as documented Diagnoses CHF exacerbation I50.9 COPD exacerbation J44.1 Acute respiratory failure with hypoxia and hypercapnia J96.01; J96.02 Anxiety F41.9 Herpes labialis B00.1 ROCKY (acute kidney injury) N17.9
--- NOTE | 2024-09-06 10:46 | PC.SOCIAL ---
IMM Updated Updated pt on IMM. No questions voiced. Provided pt a copy. Initialed, dated, & timed a copy & placed in chart.
--- NOTE | 2024-09-06 11:08 | PC.NURSE ---
Dr. Sierra has concern over pt worsening ORCKY. While RN completes rounds, multiple empty protein shakes noted at the bedside. RN educates patient on effects of protein shakes without adequate water intake. Pt states he drinks them all the time because he doesn't like to eat. Notified Dr. Sierra of findings.
[2024-09-06] MEDS: HYDROcodone-acetaminophen 5-325 mg Tablet 1 TAB PO ×2 (13:03→20:47)
[2024-09-06] MEDS: enoxaparin 40 mg/0.4 mL Syringe SUBCUT (15:10)
[2024-09-06] MEDS: pantoprazole 40 mg SDV IVP (15:11)
--- NOTE | 2024-09-06 16:07 | PC.OT ---
Pt declines OT treatment services due to stating I'm going home today.
[2024-09-06] MEDS: montelukast sodium 10 mg Tablet PO (17:58)
[2024-09-06] MEDS: valACYclovir 1,000 mg Tablet 1000 MG PO (17:58)
[2024-09-06] MEDS: atorvastatin 40 mg Tablet PO (17:59)
[2024-09-06] MEDS: gabapentin 300 mg Capsule 900 MG PO (20:46)
[2024-09-06] MEDS: lamoTRIgine 100 mg Tablet 200 MG PO (20:47)
[2024-09-06] MEDS: mirtazapine 30 mg Tablet PO (20:47)
[2024-09-06] MEDS: MELATONIN 3 MG TABLET PO (20:47)
[2024-09-07] VITALS (7 sets, daily range): BP systolic 152–186; BP diastolic 76–93; PULSE 62–79; RESP 14–20; TEMP 36.4–37.2; O2SAT 90–95
[2024-09-07] MEDS: HYDROcodone-acetaminophen 5-325 mg Tablet 1 TAB PO ×3 (03:05→20:41)
[2024-09-07] MEDS: piperacillin-tazobactam 3.375 GM in sodium chloride 0.9% (plus) 50 ML IV ×3 (03:06→22:39)
[2024-09-07 03:58] LABS: Basophils % 0.2 %; Hematocrit 36.7 % (37-53); Lymphocytes # 0.8 10^3/uL (0.8-4.8); Lymphocytes % 4.5 %; Mean Corpuscular HGB Conc 30.5 g/dL (30-55); Mean Corpuscular Hemoglobin 31.2 pg (27-33); Mean Corpuscular Volume 102.2 fl (82-101); Mean Platelet Volume 11.7 fL (7.4-10.4); Monocytes # 0.8 10^3/uL (0.2-0.9); Monocytes % 4.3 %; Neutrophils # 15.49 10^3/uL (1.8-7.7); Neutrophils % 88.5 %; Nucleated Red Blood Cells # 0.1 /100WBC; Nucleated Red Blood Cells % 0.6 %; Platelet Count 338 10^3/cmm (157-399); Red Blood Count 3.59 10^6/uL (3.85-5.65); Red Cell Distribution Width 13.5 % (12.1-15.1)
[2024-09-07 04:00] LABS: Slide Review Slide Review Perform
[2024-09-07 04:16] LABS: Anion Gap 11.9 (5-19); Blood Urea Nitrogen 44 mg/dL (8-23); Calcium 11.3 mg/dL (8.5-10.5); Carbon Dioxide 32 mmol/L (22-29); Chloride 96 mmol/L (98-107); Creatinine Clr Calc Pharmacy 46.3393; Glucose 256 mg/dL (65-115); Osmolality Calculated 300 mOsm/kg (285-295); Potassium 4.9 mmol/L (3.5-5.1); Sodium 135 mmol/L (136-145)
[2024-09-07] MEDS: valACYclovir 1,000 mg Tablet 1000 MG PO (06:06)
[2024-09-07] MEDS: lithium carbonate 300 mg Capsule PO ×2 (10:11→17:05)
[2024-09-07] MEDS: aspirin 81 mg EC Tablet PO (10:12)
[2024-09-07] MEDS: linezolid premix 600 MG/300 ML PREMIX 300 MG IV ×2 (10:12→21:34)
[2024-09-07] MEDS: predniSONE 20 mg Tablet PO (10:12)
[2024-09-07] MEDS: nystatin cream 30 gm 1 APPLIC TOPICAL ×2 (10:36→17:06)
--- NOTE | 2024-09-07 12:39 | P.PN_ITS ---
Subjective 2 Subjective: Seen this morning. Patient requesting to go home. Still has shortness of breath when he exerts himself. present at bedside. Has 2-3+ pitting edema bilateral lower extremities. Crackles on lung exam. Patient was counseled regarding his ROCKY, fluid overload status. He is agreeable to stay in the hospital for further treatment at this time. On 3 L nasal cannula which is his baseline at rest. Vitals/I&O/Wt Last Vital Signs Temp 98.3 F 09/07/24 11:38 Pulse 63 09/07/24 11:38 Resp 15 09/07/24 11:38 BP 172/78 09/07/24 11:38 Pulse Ox 92 09/07/24 11:38 O2 Del Method Nasal Cannula 09/07/24 11:38 O2 Flow Rate 3 09/06/24 16:15 FiO2 30 09/04/24 14:49 09/06/24 09/07/24 09/07/24 22:59 06:59 14:59 Intake Total 706 / 1416 590 / 590 Output Total 1000 / 1000 550 / 1550 Balance -294 / 416 -550 / -134 590 / 590 Weight last 48 hrs Weight 106.866 kg Weight 103.419 kg Physical Exam 2 Narrative: General: Alert oriented x3, patient seen sitting up in bed appearing comfortable. On 3 L nasal cannula which is his baseline. HEENT: Normocephalic, atraumatic, EOMI, Cardio: Regular rate rhythm, normal S1-S2 Respiratory: Crackles at bilateral bases. GI: Abdomen soft, nontender, nondistended, bowel sounds + Extremities: 2-3+ pitting edema bilateral lower extremities. Urinary Catheter Management: Cunningham: Cath Placed During This Visit: yes Reason for Continuing Indwelling Catheter: Other Urinary Catheter Date of Insertion: 09/03/24 Urinary Catheter Time of Insertion: 09:34 Data 09/07/24 03:24 09/07/24 03:24 A&P Assessment and plan (1) CHF exacerbation: ROCKY noted with some worsening again today at 1.8. Requested renal ultrasound. Hold diuretics further. Reviewed ultrasound, without hydronephrosis. Reassess chemistry: To see stabilization prior to discharge. Requesting urine urea, urine creatinine to see if may help distinguish prerenal versus renal causes. Discussed with nursing, adult protective caseworker. Reassess renal function. With acute systolic and diastolic congestive heart failure with respiratory failure, fluid overload with pulmonary edema, lower extremity edema, will treat with IV diuresis with Lasix IV twice daily 40 mg, monitor intake and output, reassess electrolytes with risk of electrolyte deficiency with IV steroids, risk of ROCKY. Complete troponin EKG series to assess for ischemia. Monitor on telemetry. (2) COPD exacerbation: Transition to oral corticosteroids with prednisone 40 mg daily, continue breathing treatments. COPD exacerbation with respiratory distress respiratory failure as above. His reports diminished air entry over the preceding several days. Will continue treatment with IV steroid with Solu-Medrol as above, monitor for risk of complications. Continue IV antibiotic empiric coverage. Breathing treatments. Mechanical ventilatory support, RT assessment and treatment, wean sedation in the morning, breathing trial in the morning. Complicated by severe anxiety. (3) Acute respiratory failure with hypoxia and hypercapnia: Overall some improvement in oxygenation, so far study on 3 L nasal cannula. On 3 L nasal cannula, reviewed vitals, CBC, BMP, subjectively he is improving. He is maintain saturation 3 L at rest, however, with exertion becoming tremulous, dyspneic, easily fatigued. PT assessment requested. Continue oxygen support. Will hold evening diuretic for now due to some worsening renal function, creatinine up to 1.4. Reassess renal function. Continue Solu-Medrol, breathing treatments, empiric antibiotic coverage. Reviewed vitals, CBC, ABG, CMP, discussed with nursing, adult protective caseworker, respiratory parameters with improvement, tachypnea resolved, tachycardia resolved, Improvement in air entry with clear lung sounds. Without sign of ongoing fluid overload on lung assessment bilateral front upper as well as lower lateral chest. Does have peripheral edema. Sedation being weaned, so far waking up and is following directions. Significant difficulties with weaning sedation during prior extubation attempt, Precedex requested per protocol to assist with EMILIE extubation severe anxiety control. Continue to wean sedation, breathing trial. Will continue treatment of CHF exacerbation with diuresis, COPD exacerbation with IV Solu-Medrol, breathing treatments, empiric antibiotic coverage. Monitor for risk of hyperglycemia, hypertension, gastritis, encephalopathy with IV steroid. Follow-up sputum culture, blood culture. Reviewed MRSA PCR, negative (4) Anxiety: Severe underlying anxiety making extubation difficulty and preceding hospitalization. Discussed possible need of Precedex drip periextubation. Additionally with anxiety and severe claustrophobia with BiPAP at home with his usual mask. His will be working with respiratory, equipment supplier to see if a different type of mask can be procured for him. (5) Herpes labialis: Add renally dosed valacyclovir (6) ROCKY (acute kidney injury): Further worsening of creatinine up to 1.8. BUN 49. Obtain urine urea, urine creatinine. Obtained and reviewed urine ultrasound, no obstructive uropathy. Hold IV diuretic in the afternoon. Reassess renal function. Plan Insomnia: Add melatonin. Right arm superficial thrombophlebitis: Basilic vein noted on venous duplex. Elevate extremity. Intolerance of BiPAP mask: New mask is ordered and should be arriving soon per discussion with adult protective caseworker. Ischemic cardiomyopathy: History of EF 25-30%. CAD status post stenting: Continue aspirin, statin, CKD History of gastritis: Continue PPI 09/07/2024 Creatinine 1.7 today. Possibly cardiorenal syndrome. Patient appears to be fluid overloaded with crackles on exam and bilateral 2-3+ pitting edema. ? I will restart Lasix 40 IV twice daily ? Renal ultrasound reviewed. No hydronephrosis present. Will continue Lasix 40 IV twice daily. ? Consult nephrology. Renally dosed valacyclovir to be continued. ? Continue prednisone 20 daily orally. ? Continue IV Zosyn ? Leukocytosis, WBC 17,000 most likely secondary to steroid use? ? ET tube sputum culture negative. ? Blood cultures negative to date ? Will recheck chest x-ray today. ? Continue aspirin statin ? I believe patient will require greater than 48-hour inpatient stay at this time secondary to ROCKY, fluid overload status and to medically optimize him the best possible. ? Patient agreeable for further treatment. PDMP PDMP Reviewed: Not Reviewed Attestations 2 Medical Necessity Statement*: CHF exacerbation Diagnoses CHF exacerbation I50.9 COPD exacerbation J44.1 Acute respiratory failure with hypoxia and hypercapnia J96.01; J96.02 Anxiety F41.9 Herpes labialis B00.1 ROCKY (acute kidney injury) N17.9
--- NOTE | 2024-09-07 12:44 | XRR_ITS ---
PROCEDURE INFORMATION: Exam: XR Chest Exam date and time: 09/07/2024 4:33 PM Age: 68 years old Clinical indication: Other: Eval for pleural effusion, pul vasc congestion; Prior surgery; Surgery date: 6+ months; Surgery type: Pacemaker TECHNIQUE: Imaging protocol: Radiologic exam of the chest. Views: 1 view. COMPARISON: CR XR chest 1V portable [id number] 09/03/2024 9:52 AM FINDINGS: Tubes, catheters and devices: There is stable intact pacemaker/AICD hardware. Lungs: See Pleural spaces finding. Pleural spaces: There is a small pleural effusion in the left base. Can not exclude accompanying infiltrate or atelectasis. Atelectasis is also suspected in the right base. Heart/Mediastinum: There is stable cardiomegaly. Bones/joints: Unremarkable. XR/XR chest 1V portable [id number] IMPRESSION: There is a small pleural effusion in the left base. Can not exclude accompanying infiltrate or atelectasis. Atelectasis is also suspected in the right base.
[2024-09-07] MEDS: FUROsemide 10 mg/mL SDV 4mL 40 MG IVP (12:53)
[2024-09-07] MEDS: enoxaparin 40 mg/0.4 mL Syringe SUBCUT (16:15)
[2024-09-07] MEDS: pantoprazole 40 mg SDV IVP (16:15)
[2024-09-07] MEDS: atorvastatin 40 mg Tablet PO (17:05)
[2024-09-07] MEDS: montelukast sodium 10 mg Tablet PO (17:05)
--- NOTE | 2024-09-07 19:01 | PM.CONSULT ---
Providers/Reason For Consult Consulting Physician/Specialty*: maya Reason for Consult*: Nephrology Attending Physician: Therese Rodriguez MD Primary Care Provider: Chanell Lee MD History of Present Illness History of Present Illness Jim Carney is a 68 year old male Patient is a 68-year-old male with past medical history significant for hypertension, depression, ischemic cardiomyopathy coronary artery disease BPH, anxiety dyslipidemia was admitted to the hospital due to shortness of breath. Patient was thought to be in CHF exacerbation and IV diuretics were started. Also was thought to have COPD exacerbation. Ejection fraction was 25 to 30% on echocardiogram. Patient has history of CKD with a baseline creatinine in the range of 1.1-1.6 range, had prior multiple ROCKY episodes. Creatinine on admission was 1.0 progressively gotten worse with a peak creatinine of 1.8 on 09/06/2024 and creatinine has improved to 1.4 currently. Review of Systems Narrative: negative Medications/Allergies Home Medications ?Medication ?Instructions ?Recorded ?Confirmed ?Last Taken ?Type aspirin 81 mg tablet,delayed 81 mg PO DAILY #90 tabs 05/05/22 09/03/24 06/22/24 19:00 Rx release (Adult Low Dose Aspirin) gabapentin 300 mg capsule 900 mg PO BEDTIME 05/05/22 09/03/24 06/22/24 20:00 History lamotrigine 200 mg tablet 200 mg PO BEDTIME 05/05/22 09/03/24 06/22/24 20:00 History pantoprazole 40 mg tablet,delayed 40 mg PO QAM 05/05/22 09/03/24 06/23/24 08:00 History release guaifenesin 600 mg tablet, 600 mg PO BID 05/21/24 09/03/24 05/21/24 History extended release 12 hr (Mucinex) methocarbamol 500 mg tablet 500 mg PO Q12H PRN muscle spasms 05/21/24 09/03/24 Unknown History mecobalamin (vitamin B12) 1,000 1,000 mcg PO DAILY 06/18/24 09/03/24 08/21/24 History mcg chewable tablet melatonin 10 mg capsule 10 mg PO DAILY 06/18/24 09/03/24 06/22/24 20:00 History acetaminophen 500 mg tablet 1,000 mg PO Q6H PRN Fever Or Pain 06/24/24 09/03/24 Unknown History (Tylenol Extra Strength) mirtazapine 30 mg tablet 30 mg PO BEDTIME 06/24/24 09/03/24 06/22/24 20:00 History quetiapine 100 mg tablet 100 mg PO BEDTIME PRN DEPRESSION 06/24/24 09/03/24 Unknown History albuterol sulfate 90 mcg/actuation 2 puff inhalation QID PRN copd 08/21/24 09/03/24 Unknown History aerosol inhaler atorvastatin 80 mg tablet 80 mg PO QPM 08/21/24 09/03/24 Unknown History cholecalciferol (vitamin D3) 50 50 mcg PO DAILY 08/21/24 09/03/24 Unknown History mcg (2,000 unit) tablet (Vitamin D3) cyanocobalamin (vitamin B-12) 1,000 mcg PO DAILY 08/21/24 09/03/24 Unknown History 1,000 mcg tablet fluticasone 250 mcg-salmeterol 50 1 inh inhalation BID 08/21/24 09/03/24 Unknown History mcg/dose blistr powdr for inhalation (Advair Diskus) lithium carbonate 300 mg capsule 300 mg PO BID 08/21/24 09/03/24 Unknown History metformin 500 mg tablet,extended 500 mg PO DAILY 08/21/24 09/03/24 Unknown History release 24 hr montelukast 10 mg tablet 10 mg PO QPM 08/21/24 09/03/24 Unknown History (Singulair) potassium chloride 10 mEq 10 meq PO DAILY 08/21/24 09/03/24 Unknown History tablet,extended release(part/cryst) tiotropium 2.5 mcg-olodaterol 2.5 2 inh inhalation DAILY 08/21/24 09/03/24 Unknown History mcg/actuation mist for inhalation (Stiolto Respimat) furosemide 40 mg tablet 20 mg (1/2 x 40 mg) PO DAILY 30 08/30/24 09/03/24 06/23/24 Rx days #30 tabs levofloxacin 500 mg tablet 500 mg PO DAILY@0600 5 days #5 tabs 08/30/24 09/03/24 Unknown Rx Allergies Allergy/AdvReac Type Severity Reaction Status Date / Time No Known Allergies Allergy Verified 07/08/24 15:01 Current Medications Generic Name Dose Route Start Last Admin Trade Name Freq PRN Reason Stop Dose Admin Acetaminophen 650 mg 09/03/24 15:12 09/06/24 01:16 Acetaminophen 325 Mg Tablet PO 650 mg Q6H PRN Administration Mild/Mod Pain Or Temp >/= 101 Hydrocodone Bitart/Acetaminophen 1 tab 09/05/24 14:34 09/07/24 11:48 Hydrocodone-Acetaminophen 5-325 Mg Tablet PO 1 tab Q6H PRN Administration MODERATE PAIN Albuterol/Ipratropium 3 ml 09/03/24 12:31 09/05/24 12:45 Ipratropium-Albuterol 3 Ml Neb INHALATION 3 ml Q6H PRN Administration SHORTNESS OF BREATH Aspirin 81 mg 09/03/24 13:00 09/07/24 10:12 Aspirin 81 Mg Ec Tablet PO 81 mg DAILY MARYANN Administration Atorvastatin Calcium 40 mg 09/03/24 18:00 09/07/24 17:05 Atorvastatin 40 Mg Tablet PO 40 mg QPM MARYANN Administration Enoxaparin Sodium 40 mg 09/03/24 15:30 09/07/24 16:15 Enoxaparin 40 Mg/0.4 Ml Syringe SUBCUT 40 mg Q24H MARYANN Administration Gabapentin 900 mg 09/03/24 21:00 09/06/24 20:46 Gabapentin 300 Mg Capsule PO 900 mg BEDTIME MARYANN Administration Piperacillin Sod/Tazobactam 50 mls @ 12.5 mls/hr 09/03/24 18:00 09/07/24 15:38 Sod 3.375 gm/ Sodium Chloride IV Infused Q8H MARYANN Infusion Protocol Linezolid 600 mg in 300 mls @ 300 mls/hr 09/03/24 21:00 09/07/24 11:17 Zyvox Premix IV Infused Q12H MARYANN Infusion Protocol Lamotrigine 200 mg 09/03/24 21:00 09/06/24 20:47 Lamotrigine 100 Mg Tablet PO 200 mg BEDTIME MARYANN Administration Lanolin 1 applic 09/04/24 17:41 09/04/24 18:11 Lanolin Oint 7 Gm TOPICAL 1 applic PRN PRN Administration DRYNESS [place] Carbonate 300 mg 09/03/24 18:00 09/07/24 17:05 [place] Carbonate 300 Mg Capsule PO 300 mg BID MARYANN Administration Melatonin 3 mg 09/06/24 17:06 09/06/24 20:47 Melatonin 3 Mg Tablet PO 3 mg BEDTIME PRN Administration INSOMNIA Methocarbamol 500 mg 09/03/24 12:47 09/06/24 01:16 Methocarbamol 500 Mg Tablet PO 500 mg Q12H PRN Administration muscle spasms Mirtazapine 30 mg 09/03/24 21:00 09/06/24 20:47 Mirtazapine 30 Mg Tablet PO 30 mg BEDTIME MARYANN Administration Montelukast Sodium 10 mg 09/03/24 18:00 09/07/24 17:05 Montelukast Sodium 10 Mg Tablet PO 10 mg QPM MARYANN Administration Non-Formulary Medication 2 puff 09/05/24 13:44 09/05/24 19:13 Albuterol Sulfate [Albuterol Sulfate] INHALATION 2 puff QID PRN Administration copd Nystatin 1 applic 09/03/24 15:25 09/07/24 17:06 Nystatin Cream 30 Gm TOPICAL 1 applic BID MARYANN Administration Pantoprazole Sodium 40 mg 09/03/24 15:15 09/07/24 16:15 Pantoprazole 40 Mg Sdv IVP 40 mg Q24H MARYANN Administration Prednisone 20 mg 09/07/24 09:00 09/07/24 10:12 Prednisone 20 Mg Tablet PO 20 mg DAILY MARYANN Administration Quetiapine Fumarate 100 mg 09/03/24 12:47 09/05/24 21:20 Quetiapine 100 Mg Tablet PO 100 mg BEDTIME PRN Administration DEPRESSION PFSH Acute PFSH: Medical History (Updated 09/06/24 @ 21:25 by Garrison Sierra MD) Anxiety Osteoporosis without pathological fracture Bipolar disorder, unspecified Benign prostatic hyperplasia without lower urinary tract symptoms Gastritis, unspecified, without bleeding Gastrointestinal stromal tumor of stomach Low back pain, unspecified Umbilical hernia without obstruction or gangrene Hyperparathyroidism s/p parathyroid tumor removal Depression Bipolar 1 disorder Gastrointestinal stromal tumor s/p surgery in 2019 in [place]. No chemo or radiation needed. Hypertension Ischemic cardiomyopathy CAD (coronary artery disease) s/p 1 stent in 2015 Cardiac resynchronization therapy defibrillator ([employer]ICE-D) in place Hyperlipidemia, unspecified Surgical History History of lumbar laminectomy in 2013 in [place] Abdominal aortic aneurysm (AAA) without rupture s/p surgery in 2018 or 2019 in [place] Family History Father Heart attack Social History Smoking and tobacco/nicotine status: former use of tobacco/nicotine (2022) Alcohol intake: never Substance/Drug Use: current Vitals/I&O/Wt Last Vital Signs Temp 98.6 F 09/07/24 16:00 Pulse 76 09/07/24 16:00 Resp 14 09/07/24 16:00 BP 170/92 09/07/24 16:00 Pulse Ox 94 09/07/24 16:00 O2 Del Method Nasal Cannula 09/07/24 16:00 O2 Flow Rate 3 09/06/24 16:15 FiO2 30 09/04/24 14:49 09/07/24 09/07/24 09/07/24 06:59 14:59 22:59 Intake Total 710 / 710 50 / 760 Output Total 550 / 1550 1500 / 1500 Balance -550 / -134 710 / 710 -1450 / -740 Weight last 48 hrs Weight 106.866 kg Weight 103.419 kg Physical Exam Narrative: awake , alert No distress S1S2 RRR per report Lungs clear per report no edema Urinary Catheter Management: Cunningham: Cath Placed During This Visit: yes Reason for Continuing Indwelling Catheter: Other Urinary Catheter Date of Insertion: 09/03/24 Urinary Catheter Time of Insertion: 09:34 Data 09/08/24 03:46 09/08/24 03:46 A&P Assessment and plan (1) ROCKY (acute kidney injury): Plan 1. Acute on chronic kidney disease stage III: Baseline creatinine in the 1.1-1.5 range previously, creatinine was 1.1 on presentation worsened to peak 1.8 and now improved to 1.4. Status post IV diuresis due to CHF exacerbation. -Switch to oral Bumex, 2 g sodium restriction 1500 mL fluid restriction -Arrange nephrology follow-up at discharge -No hydronephrosis on ultrasound, UA shows positive protein and positive blood with microscopic hematuria but in the setting of Cunningham placement-prior UA is without any microscopic hematuria, will repeat UA for now 2. Acute on chronic respiratory failure multifactorial in the setting of CHF salvation and systolic and COPD exacerbation 3. Metabolic alkalosis, mild, in the setting of aggressive IV diuresis, monitor 4. History of CHF 5. Anemia: Check iron studies Patient evaluated using audiovisual cart. Time spent 40 minutes. PDMP PDMP Reviewed: Not Reviewed Consult Attestations Medical Necessity Statement: per [facility] team Coding Level of Care Code Acute Code for Chg Fwd Diagnoses ROCKY (acute kidney injury) N17.9
--- NOTE | 2024-09-07 19:16 | CTR_ITS ---
PROCEDURE INFORMATION: Exam: CT Chest Without Contrast; Diagnostic Exam date and time: 09/08/2024 1:44 AM Age: 68 years old Clinical indication: Abnormal findings; Abnormal diagnostic tests; Abnormal ekg; Shortness of breath; Prior surgery; Surgery date: 6+ months; Surgery type: Pacer; Worsening SOB with leukocytosis. ; Additional info: Shortness of breath, leukocytosis TECHNIQUE: Imaging protocol: Diagnostic computed tomography of the chest without contrast. Radiation optimization: All CT scans at this facility use at least one of these dose optimization techniques: automated exposure control; mA and/or kV adjustment per patient size (includes targeted exams where dose is matched to clinical indication); or iterative reconstruction. COMPARISON: CT chest wo con [id number] 08/25/2024 9:12 AM RADIATION DOSE METRICS: Total DLP (mGy-cm): 599.01 FINDINGS: Tubes, catheters and devices: Pacemaker. Lungs: Consolidation at the right lower lobe with minimal involvement at the left lower lobe. Pleural spaces: Left greater than right pleural effusion is similar to prior exam. Heart: Similar marked cardiomegaly. No significant pericardial effusion. Coronary arteries: Multivessel coronary calcification. Lymph nodes: Unremarkable. No enlarged lymph nodes. Vasculature: No aortic aneurysm. Bones/joints: No acute fracture. Soft tissues: Unremarkable. CT/CT chest con [id number] IMPRESSION: New consolidation at the right lower lobe compatible with pneumonia.
[2024-09-07] MEDS: albumin 25 G/100 ML BAG 60 G IV (20:02)
[2024-09-07] MEDS: lamoTRIgine 100 mg Tablet 200 MG PO (20:41)
[2024-09-07] MEDS: mirtazapine 30 mg Tablet PO (20:41)
[2024-09-07] MEDS: gabapentin 300 mg Capsule 900 MG PO (20:41)
[2024-09-08] VITALS (10 sets, daily range): BP systolic 146–169; BP diastolic 75–95; PULSE 60–84; RESP 15–22; TEMP 36.2–37.2; O2SAT 90–97
[2024-09-08] MEDS: FUROsemide 10 mg/mL SDV 4mL 40 MG IVP (02:00)
[2024-09-08] MEDS: MELATONIN 3 MG TABLET PO ×2 (02:00→21:24)
[2024-09-08] MEDS: quetiapine 100 mg Tablet PO ×2 (02:00→21:24)
[2024-09-08] MEDS: HYDROcodone-acetaminophen 5-325 mg Tablet 1 TAB PO ×3 (02:00→21:25)
[2024-09-08 04:04] LABS: Basophils % 0.1 %; Hematocrit 34.6 % (37-53); Lymphocytes # 0.9 10^3/uL (0.8-4.8); Lymphocytes % 7.2 %; Mean Corpuscular HGB Conc 30.1 g/dL (30-55); Mean Corpuscular Hemoglobin 30.8 pg (27-33); Mean Corpuscular Volume 102.4 fl (82-101); Mean Platelet Volume 10.5 fL (7.4-10.4); Monocytes # 0.9 10^3/uL (0.2-0.9); Neutrophils # 11.02 10^3/uL (1.8-7.7); Neutrophils % 84.2 %; Nucleated Red Blood Cells # 0.1 /100WBC; Nucleated Red Blood Cells % 0.5 %; Platelet Count 300 10^3/cmm (157-399); Red Blood Count 3.38 10^6/uL (3.85-5.65); Red Cell Distribution Width 13.7 % (12.1-15.1); White Blood Count 13.08 10^3/uL (3.29-11.43)
[2024-09-08 04:31] LABS: Anion Gap 15.2 (5-19); Blood Urea Nitrogen 39 mg/dL (8-23); Calcium 10.9 mg/dL (8.5-10.5); Carbon Dioxide 32 mmol/L (22-29); Chloride 97 mmol/L (98-107); Creatinine Clr Calc Pharmacy 57.2267; Glomerular Filtration Rate 50.1 mL/min (90-130); Glucose 280 mg/dL (65-115); Magnesium 2.1 mg/dL (1.7-2.3); Osmolality Calculated 309 mOsm/kg (285-295); Potassium 4.2 mmol/L (3.5-5.1); Sodium 140 mmol/L (136-145)
[2024-09-08] MEDS: piperacillin-tazobactam 3.375 GM in sodium chloride 0.9% (plus) 50 ML IV ×3 (06:44→22:45)
[2024-09-08] MEDS: predniSONE 20 mg Tablet PO (10:18)
[2024-09-08] MEDS: lithium carbonate 300 mg Capsule PO ×2 (10:19→18:40)
[2024-09-08] MEDS: aspirin 81 mg EC Tablet PO (10:19)
[2024-09-08] MEDS: linezolid premix 600 MG/300 ML PREMIX 300 MG IV ×2 (10:19→20:18)
[2024-09-08] MEDS: nystatin cream 30 gm 1 APPLIC TOPICAL ×2 (10:19→18:40)
[2024-09-08 12:49] LABS: Add Urine Microscopic? NO
[2024-09-08 12:53] LABS: Urine Appearance Clear (CLEAR); Urine Color Yellow (Yellow); pH Urine 5 (5-7)
[2024-09-08 12:54] LABS: Bilirubin Urine Neg (Negative); Blood Urine Trace (Negative); Charge for UA Resulting for Rev; Glucose Urine UA Norm (Normal); Ketones Urine Negative (Negative); Leukocyte Esterase Urine 2+ (Negative); Nitrate Urine Negative (Negative); Protein Urine 2+ (Negative); Specific Gravity, Urine 1.015 (1.005-1.030); Urobilinogen Urine Neg (Negative)
[2024-09-08 12:55] LABS: Bacteria Urine None Seen /hpf; Hyaline Casts Urine 22.33 /lpf; RBC Urine >100 /hpf (0-2); Squamous Epithelial Cell Urine 0-5 /hpf (0-5); WBC Urine 51-100 /hpf (0-5)
[2024-09-08 13:04] LABS: Urine Creatinine 89 mg/dL (39-259)
[2024-09-08 13:06] LABS: UA Slide Review UA Slide Review Perf
[2024-09-08 13:07] LABS: Add Urine Culture? Yes
[2024-09-08 13:20] LABS: Urea Nitrogen,Urine Random 620 mg/dL
--- NOTE | 2024-09-08 13:28 | PM.PN ---
Subjective Subjective: Seen this morning. Patient sleeping. Patient's at bedside. Creatinine improved to 1.4. She states he has stopped finally after 2 days. Subjectively was feeling better. CT chest does show new pneumonia. Vitals/I&O/Wt Last Vital Signs Temp 98.4 F 09/08/24 11:23 Pulse 69 09/08/24 11:23 Resp 17 09/08/24 11:23 BP 148/85 09/08/24 11:23 Pulse Ox 97 09/08/24 11:23 O2 Del Method Nasal Cannula 09/08/24 11:23 O2 Flow Rate 3 09/08/24 09:21 FiO2 30 09/04/24 14:49 09/07/24 09/08/24 09/08/24 22:59 06:59 14:59 Intake Total 450 / 1160 50 / 1210 470 / 470 Output Total 2800 / 2800 1300 / 4100 Balance -2350 / -1640 -1250 / -2890 470 / 470 Weight last 48 hrs Weight 101.06 kg Weight 106.866 kg Physical Exam Narrative: General: Alert oriented x3, patient seen sitting up in bed appearing comfortable. On 3 L nasal cannula which is his baseline. HEENT: Normocephalic, atraumatic, EOMI, Cardio: Regular rate rhythm, normal S1-S2 Respiratory: Lungs clear to auscultation today. GI: Abdomen soft, nontender, nondistended, bowel sounds + Extremities: 1-2+ pitting edema bilateral lower extremities. Slowly improving. Urinary Catheter Management: Cunningham: Cath Placed During This Visit: yes Reason for Continuing Indwelling Catheter: Acute Urinary Retention or Obstruction Urinary Catheter Date of Insertion: 09/03/24 Urinary Catheter Time of Insertion: 09:34 Data 09/08/24 03:46 09/08/24 03:46 Micro: Microbiology 09/03/24 09:27 Blood Culture - Final Blood NO GROWTH AFTER 5 DAYS 09/03/24 09:20 Blood Culture - Final Blood NO GROWTH AFTER 5 DAYS A&P Assessment and plan (1) CHF exacerbation: ROCKY noted with some worsening again today at 1.8. Requested renal ultrasound. Hold diuretics further. Reviewed ultrasound, without hydronephrosis. Reassess chemistry: To see stabilization prior to discharge. Requesting urine urea, urine creatinine to see if may help distinguish prerenal versus renal causes. Discussed with nursing, telephonic nurse case manager. Reassess renal function. With acute systolic and diastolic congestive heart failure with respiratory failure, fluid overload with pulmonary edema, lower extremity edema, will treat with IV diuresis with Lasix IV twice daily 40 mg, monitor intake and output, reassess electrolytes with risk of electrolyte deficiency with IV steroids, risk of ROCKY. Complete troponin EKG series to assess for ischemia. Monitor on telemetry. (2) COPD exacerbation: Transition to oral corticosteroids with prednisone 40 mg daily, continue breathing treatments. COPD exacerbation with respiratory distress respiratory failure as above. His reports diminished air entry over the preceding several days. Will continue treatment with IV steroid with Solu-Medrol as above, monitor for risk of complications. Continue IV antibiotic empiric coverage. Breathing treatments. Mechanical ventilatory support, RT assessment and treatment, wean sedation in the morning, breathing trial in the morning. Complicated by severe anxiety. (3) Acute respiratory failure with hypoxia and hypercapnia: Overall some improvement in oxygenation, so far study on 3 L nasal cannula. On 3 L nasal cannula, reviewed vitals, CBC, BMP, subjectively he is improving. He is maintain saturation 3 L at rest, however, with exertion becoming tremulous, dyspneic, easily fatigued. PT assessment requested. Continue oxygen support. Will hold evening diuretic for now due to some worsening renal function, creatinine up to 1.4. Reassess renal function. Continue Solu-Medrol, breathing treatments, empiric antibiotic coverage. Reviewed vitals, CBC, ABG, CMP, discussed with nursing, telephonic nurse case manager, respiratory parameters with improvement, tachypnea resolved, tachycardia resolved, Improvement in air entry with clear lung sounds. Without sign of ongoing fluid overload on lung assessment bilateral front upper as well as lower lateral chest. Does have peripheral edema. Sedation being weaned, so far waking up and is following directions. Significant difficulties with weaning sedation during prior extubation attempt, Precedex requested per protocol to assist with EMILIE extubation severe anxiety control. Continue to wean sedation, breathing trial. Will continue treatment of CHF exacerbation with diuresis, COPD exacerbation with IV Solu-Medrol, breathing treatments, empiric antibiotic coverage. Monitor for risk of hyperglycemia, hypertension, gastritis, encephalopathy with IV steroid. Follow-up sputum culture, blood culture. Reviewed MRSA PCR, negative (4) Anxiety: Severe underlying anxiety making extubation difficulty and preceding hospitalization. Discussed possible need of Precedex drip periextubation. Additionally with anxiety and severe claustrophobia with BiPAP at home with his usual mask. His will be working with respiratory, equipment supplier to see if a different type of mask can be procured for him. (5) Herpes labialis: Add renally dosed valacyclovir (6) ROCKY (acute kidney injury): Further worsening of creatinine up to 1.8. BUN 49. Obtain urine urea, urine creatinine. Obtained and reviewed urine ultrasound, no obstructive uropathy. Hold IV diuretic in the afternoon. Reassess renal function. Plan Insomnia: Add melatonin. Right arm superficial thrombophlebitis: Basilic vein noted on venous duplex. Elevate extremity. Intolerance of BiPAP mask: New mask is ordered and should be arriving soon per discussion with telephonic nurse case manager. Ischemic cardiomyopathy: History of EF 25-30%. CAD status post stenting: Continue aspirin, statin, CKD History of gastritis: Continue PPI 09/07/2024 Creatinine 1.7 today. Possibly cardiorenal syndrome. Patient appears to be fluid overloaded with crackles on exam and bilateral 2-3+ pitting edema. ? I will restart Lasix 40 IV twice daily ? Renal ultrasound reviewed. No hydronephrosis present. Will continue Lasix 40 IV twice daily. ? Consult nephrology. Renally dosed valacyclovir to be continued. ? Continue prednisone 20 daily orally. ? Continue IV Zosyn ? Leukocytosis, WBC 17,000 most likely secondary to steroid use? ? ET tube sputum culture negative. ? Blood cultures negative to date ? Will recheck chest x-ray today. ? Continue aspirin statin ? I believe patient will require greater than 48-hour inpatient stay at this time secondary to ROCKY, fluid overload status and to medically optimize him the best possible. ? Patient agreeable for further treatment. 09/08/2024 ROCKY improving, creatinine down to 1.4 Lower extremity edema has also improved to 1-2+ edema compared to yesterday. Continue Lasix 40 IV twice daily at this time. Continue prednisone IV Zosyn. White count down to 13,000. CT chest did not show any pneumonia. Continue aspirin and statin Continue current treatment. Potentially discharge home in next 48 to 72 hours once patient has been optimized. PDMP PDMP Reviewed: Not Reviewed Attestations Medical Necessity Statement*: ROCKY, pneumonia, fluid overload heart failure Diagnoses CHF exacerbation I50.9 COPD exacerbation J44.1 Acute respiratory failure with hypoxia and hypercapnia J96.01; J96.02 Anxiety F41.9 Herpes labialis B00.1 ROCKY (acute kidney injury) N17.9
[2024-09-08] MEDS: FUROsemide 40 mg Tablet PO (15:29)
[2024-09-08] MEDS: enoxaparin 40 mg/0.4 mL Syringe SUBCUT (15:29)
[2024-09-08] MEDS: pantoprazole 40 mg SDV IVP (15:29)
[2024-09-08] MEDS: atorvastatin 40 mg Tablet PO (18:40)
[2024-09-08] MEDS: montelukast sodium 10 mg Tablet PO (18:40)
[2024-09-08] MEDS: ondansetron 2 mg/ML SDV 2 mL 4 MG IVP (20:12)
[2024-09-08] MEDS: lamoTRIgine 100 mg Tablet 200 MG PO (20:13)
[2024-09-08] MEDS: gabapentin 300 mg Capsule 900 MG PO (20:13)
[2024-09-08] MEDS: mirtazapine 30 mg Tablet PO (20:18)
[2024-09-09] VITALS (14 sets, daily range): BP systolic 113–150; BP diastolic 58–80; PULSE 57–80; RESP 15–20; TEMP 36.6–37.4; O2SAT 91–98; BMI 34.7
[2024-09-09 04:41] LABS: Basophils % 0.1 %; Eosinophils % 0.2 %; Hematocrit 38.1 % (37-53); Lymphocytes # 0.9 10^3/uL (0.8-4.8); Lymphocytes % 7.4 %; Mean Corpuscular HGB Conc 29.1 g/dL (30-55); Mean Corpuscular Hemoglobin 30.9 pg (27-33); Mean Corpuscular Volume 106.1 fl (82-101); Monocytes # 0.6 10^3/uL (0.2-0.9); Monocytes % 5.4 %; Neutrophils # 10.15 10^3/uL (1.8-7.7); Neutrophils % 85.7 %; Nucleated Red Blood Cells # 0.1 /100WBC; Platelet Count 227 10^3/cmm (157-399); Red Blood Count 3.59 10^6/uL (3.85-5.65); Red Cell Distribution Width 13.7 % (12.1-15.1); White Blood Count 11.84 10^3/uL (3.29-11.43)
[2024-09-09 05:07] LABS: Blood Urea Nitrogen 37 mg/dL (8-23); Calcium 10.7 mg/dL (8.5-10.5); Carbon Dioxide 37 mmol/L (22-29); Chloride 97 mmol/L (98-107); Creatinine Clr Calc Pharmacy 48.6622; Glomerular Filtration Rate 42.9 mL/min (90-130); Glucose 217 mg/dL (65-115); Magnesium 2.1 mg/dL (1.7-2.3); Osmolality Calculated 305 mOsm/kg (285-295); Sodium 140 mmol/L (136-145)
[2024-09-09 05:25] LABS: Anion Gap 10.3 (5-19); Potassium 4.3 mmol/L (3.5-5.1)
[2024-09-09] MEDS: piperacillin-tazobactam 3.375 GM in sodium chloride 0.9% (plus) 50 ML IV ×2 (06:12→15:13)
[2024-09-09] MEDS: linezolid premix 600 MG/300 ML PREMIX 300 MG IV (10:43)
[2024-09-09] MEDS: predniSONE 20 mg Tablet PO (10:43)
[2024-09-09] MEDS: aspirin 81 mg EC Tablet PO (10:43)
[2024-09-09] MEDS: lithium carbonate 300 mg Capsule PO ×2 (10:43→17:24)
[2024-09-09] MEDS: FUROsemide 40 mg Tablet PO ×2 (10:43→17:24)
[2024-09-09] MEDS: nystatin cream 30 gm 1 APPLIC TOPICAL ×2 (10:43→17:25)
--- NOTE | 2024-09-09 11:39 | P.PN_ITS ---
Subjective 2 Subjective: no new complaints Medications: Reviewed: Yes Vitals/I&O/Wt Last Vital Signs Temp 98.8 F 09/09/24 11:20 Pulse 80 09/09/24 11:20 Resp 19 H 09/09/24 11:20 BP 124/73 09/09/24 11:20 Pulse Ox 91 09/09/24 11:20 O2 Del Method Nasal Cannula 09/09/24 11:20 O2 Flow Rate 3 09/09/24 09:10 FiO2 30 09/04/24 14:49 09/08/24 09/09/24 09/09/24 22:59 06:59 14:59 Intake Total 590 / 1060 790 / 1850 170 / 170 Output Total 1000 / 1000 950 / 1950 Balance -410 / 60 -160 / -100 170 / 170 Weight last 48 hrs Weight 100.698 kg Weight 101.06 kg Physical Exam 2 Narrative: somnolenr No distress S1S2 RRR per report Lungs clear per report no edema Urinary Catheter Management: Cunningham: Cath Placed During This Visit: yes Reason for Continuing Indwelling Catheter: Accurate Measurement of Urinary Output in Critically Ill Patients Urinary Catheter Date of Insertion: 09/03/24 Urinary Catheter Time of Insertion: 09:34 Data 09/10/24 04:57 09/10/24 04:57 Micro: Microbiology 09/08/24 12:34 Urine Culture - Preliminary Urine,Clean Catch Yeast species 09/03/24 09:27 Blood Culture - Final Blood NO GROWTH AFTER 5 DAYS 09/03/24 09:20 Blood Culture - Final Blood NO GROWTH AFTER 5 DAYS A&P Assessment and plan (1) ROCKY (acute kidney injury): Plan 1. Acute on chronic kidney disease stage III: Baseline creatinine in the 1.1- 1.5 range previously, creatinine was 1.1 on presentation . Status post IV diuresis due to CHF exacerbation. -Switch to oral lasix , 2 g sodium restriction 1500 mL fluid restriction -Arrange nephrology follow-up at discharge -No hydronephrosis on ultrasound, UA shows positive protein and positive blood with microscopic hematuria but in the setting of Cunningham placement-prior UA is without any microscopic hematuria, will repeat UA for now - Cr stable to 1.4-1.8 range ( likely his baseline now ) , monitor 2. Acute on chronic respiratory failure multifactorial in the setting of CHF salvation and systolic and COPD exacerbation - has hypercapneic resp failure , plan for BIPAP 3. Metabolic alkalosis, mild, in the setting of aggressive IV diuresis, monitor 4. History of CHF 5. Anemia: Check iron studies Patient evaluated using audiovisual cart. Time spent 40 minutes. PDMP PDMP Reviewed: Not Reviewed Attestations 2 Medical Necessity Statement*: per [facility] Coding Level of Care Code Acute Code for Chg Fwd Diagnoses ROCKY (acute kidney injury) N17.9
--- NOTE | 2024-09-09 11:45 | PC.SOCIAL ---
IMM Update pg 2 of IMM updated and reviewed w/ patient. Copy provided and copy dated, initialed and placed in chart.
--- NOTE | 2024-09-09 14:50 | PC.OT ---
OT TREATMENT ATTEMPTED TWICE THIS AFTERNOON. 1ST ATTEMPT: NURSING CARE; IV 2ND ATTEMPT: PATIENT SLEEPING SOUNDLY.
[2024-09-09 14:57] LABS: ABG PH Result 7.19 (7.35-7.45); Alveolar-Arterial Oxygen Gradi 2.6 mmHg (5-10); Arterial Blood Gas Hematocrit 36.2 % (42-52); Base Excess ABG 9.6 mmol/L (-2.0-2.0); Blood Gas Allen Test Pos; Blood Gas Operator Identificat GD; Blood Gas Sample Site Radial, left; Blood Gas Sample Type Arterial; Carboxyhemoglobin 1.5 %THgb (0.4-20.1); HCO3 ABG 41.6 mmol/L (22-26); Ionized Calcium Level - ABG 1.5 mmol/L (1.1-1.4); Methemoglobin 1.2 % (0.4-1.5); Oxygen Device NC; Oxygen Saturation ABG 94.5; PO2 ABG 77.8 mmHg (80.0-100.0); PO2 FiO2 Ratio Arterial Blood 243; Potassium Level - ABG 4.2 mmol/L (3.5-5.0); Total Hemoglobin 11.8 g/dL (14-18)
[2024-09-09 14:58] LABS: ABG PCO2 > 102.0 mmHg (35-45)
[2024-09-09] MEDS: pantoprazole 40 mg SDV IVP (15:12)
[2024-09-09] MEDS: enoxaparin 40 mg/0.4 mL Syringe SUBCUT (15:14)
[2024-09-09 16:47] LABS: ABG PCO2 53.7 mmHg (35-45); ABG PH Result 7.48 (7.35-7.45); Alveolar-Arterial Oxygen Gradi 7.5 mmHg (5-10); Arterial Blood Gas Hematocrit 32.6 % (42-52); Base Excess ABG 14.7 mmol/L (-2.0-2.0); Blood Gas Allen Test Pos; Blood Gas Operator Identificat D; Blood Gas Sample Site Radial, left; Blood Gas Sample Type Arterial; Blood Gas Tidal Volume 0.55; Carboxyhemoglobin 1.5 %THgb (0.4-20.1); HCO3 ABG 40.2 mmol/L (22-26); HGB O2 Sat 96.4 % (95-100); Ionized Calcium Level - ABG 1.4 mmol/L (1.1-1.4); Oxygen Device BIPAP; Oxygen Saturation ABG 98.9; PO2 ABG 89.3 mmHg (80.0-100.0); PO2 FiO2 Ratio Arterial Blood 297; Total Hemoglobin 10.6 g/dL (14-18)
--- NOTE | 2024-09-09 16:51 | P.PN_ITS ---
Subjective 2 Subjective: Patient was noted to be obtunded this afternoon. pCO2 was noted to be at 110. Evidence of severe respiratory acidosis. He was placed on AVAPS ventilation following which his pCO2 and mental status are improving. Medications: Reviewed: Yes Vitals/I&O/Wt Last Vital Signs Temp 98.5 F 09/09/24 16:00 Pulse 62 09/09/24 16:00 Resp 20 H 09/09/24 16:00 BP 119/76 09/09/24 16:00 Pulse Ox 97 09/09/24 16:00 O2 Del Method BiPAP 09/09/24 16:00 O2 Flow Rate 3 09/09/24 09:10 FiO2 40 09/09/24 15:13 09/09/24 09/09/24 09/09/24 06:59 14:59 22:59 Intake Total 790 / 1850 470 / 470 Output Total 950 / 1950 Balance -160 / -100 470 / 470 Weight last 48 hrs Weight 100.698 kg Weight 101.06 kg Physical Exam 2 Narrative: General: No acute distress, AO x2, lethargic HEENT: PERRLA, pupils bilaterally equal and reactive, pallors not present Chest: Normal vesicular breath sounds, no added sounds, equal good air entry bilaterally CVS: S1-S2 regular, no murmurs, no tachycardia, no gallops, no rubs Abdomen: Soft, nontender, no organomegaly, bowel sounds present Neuro: unable to assess due to somnolence Urinary Catheter Management: Cunningham: Cath Placed During This Visit: yes Reason for Continuing Indwelling Catheter: Accurate Measurement of Urinary Output in Critically Ill Patients Urinary Catheter Date of Insertion: 09/03/24 Urinary Catheter Time of Insertion: 09:34 Data 09/09/24 03:58 09/09/24 03:58 Micro: Microbiology 09/08/24 12:34 Urine Culture - Preliminary Urine,Clean Catch Yeast species A&P Assessment and plan (1) CHF exacerbation: ROCKY noted with some worsening again today at 1.8. Requested renal ultrasound. Hold diuretics further. Reviewed ultrasound, without hydronephrosis. Reassess chemistry: To see stabilization prior to discharge. Requesting urine urea, urine creatinine to see if may help distinguish prerenal versus renal causes. Discussed with nursing, embedded case manager. Reassess renal function. With acute systolic and diastolic congestive heart failure with respiratory failure, fluid overload with pulmonary edema, lower extremity edema, will treat with IV diuresis with Lasix IV twice daily 40 mg, monitor intake and output, reassess electrolytes with risk of electrolyte deficiency with IV steroids, risk of ROCKY. Complete troponin EKG series to assess for ischemia. Monitor on telemetry. (2) COPD exacerbation: Transition to oral corticosteroids with prednisone 40 mg daily, continue breathing treatments. COPD exacerbation with respiratory distress respiratory failure as above. His reports diminished air entry over the preceding several days. Will continue treatment with IV steroid with Solu-Medrol as above, monitor for risk of complications. Continue IV antibiotic empiric coverage. Breathing treatments. Mechanical ventilatory support, RT assessment and treatment, wean sedation in the morning, breathing trial in the morning. Complicated by severe anxiety. (3) Acute respiratory failure with hypoxia and hypercapnia: Overall some improvement in oxygenation, so far study on 3 L nasal cannula. On 3 L nasal cannula, reviewed vitals, CBC, BMP, subjectively he is improving. He is maintain saturation 3 L at rest, however, with exertion becoming tremulous, dyspneic, easily fatigued. PT assessment requested. Continue oxygen support. Will hold evening diuretic for now due to some worsening renal function, creatinine up to 1.4. Reassess renal function. Continue Solu-Medrol, breathing treatments, empiric antibiotic coverage. Reviewed vitals, CBC, ABG, CMP, discussed with nursing, embedded case manager, respiratory parameters with improvement, tachypnea resolved, tachycardia resolved, Improvement in air entry with clear lung sounds. Without sign of ongoing fluid overload on lung assessment bilateral front upper as well as lower lateral chest. Does have peripheral edema. Sedation being weaned, so far waking up and is following directions. Significant difficulties with weaning sedation during prior extubation attempt, Precedex requested per protocol to assist with EMILIE extubation severe anxiety control. Continue to wean sedation, breathing trial. Will continue treatment of CHF exacerbation with diuresis, COPD exacerbation with IV Solu-Medrol, breathing treatments, empiric antibiotic coverage. Monitor for risk of hyperglycemia, hypertension, gastritis, encephalopathy with IV steroid. Follow-up sputum culture, blood culture. Reviewed MRSA PCR, negative (4) Anxiety: Severe underlying anxiety making extubation difficulty and preceding hospitalization. Discussed possible need of Precedex drip periextubation. Additionally with anxiety and severe claustrophobia with BiPAP at home with his usual mask. His will be working with respiratory, equipment supplier to see if a different type of mask can be procured for him. (5) Herpes labialis: Add renally dosed valacyclovir (6) ROCKY (acute kidney injury): Further worsening of creatinine up to 1.8. BUN 49. Obtain urine urea, urine creatinine. Obtained and reviewed urine ultrasound, no obstructive uropathy. Hold IV diuretic in the afternoon. Reassess renal function. Plan Insomnia: Add melatonin. Right arm superficial thrombophlebitis: Basilic vein noted on venous duplex. Elevate extremity. Intolerance of BiPAP mask: New mask is ordered and should be arriving soon per discussion with embedded case manager. Ischemic cardiomyopathy: History of EF 25-30%. CAD status post stenting: Continue aspirin, statin, CKD History of gastritis: Continue PPI 09/07/2024 Creatinine 1.7 today. Possibly cardiorenal syndrome. Patient appears to be fluid overloaded with crackles on exam and bilateral 2-3+ pitting edema. ? I will restart Lasix 40 IV twice daily ? Renal ultrasound reviewed. No hydronephrosis present. Will continue Lasix 40 IV twice daily. ? Consult nephrology. Renally dosed valacyclovir to be continued. ? Continue prednisone 20 daily orally. ? Continue IV Zosyn ? Leukocytosis, WBC 17,000 most likely secondary to steroid use? ? ET tube sputum culture negative. ? Blood cultures negative to date ? Will recheck chest x-ray today. ? Continue aspirin statin ? I believe patient will require greater than 48-hour inpatient stay at this time secondary to ROCKY, fluid overload status and to medically optimize him the best possible. ? Patient agreeable for further treatment. 09/08/2024 ROCKY improving, creatinine down to 1.4 Lower extremity edema has also improved to 1-2+ edema compared to yesterday. Continue Lasix 40 IV twice daily at this time. Continue prednisone IV Zosyn. White count down to 13,000. CT chest did not show any pneumonia. Continue aspirin and statin Continue current treatment. Potentially discharge home in next 48 to 72 hours once patient has been optimized. September 09, 2024 68M with history of CAD, ischemic cardiomyopathy with last known EF 25% status post AICD placement, chronic hypoxic respiratory failure, COPD who is supposed to be on daily night time BIPAP but has not been using due to issues with ill fitting masks. He is currently admitted to the hospital since 09/03/2024 after presenting with shortness of breath and respiratory distress for which he was intubated upon admission. Overall clinical impression was that of acute on chronic systolic and diastolic congestive heart failure for which patient has been on IV diuresis. Respiratory panel was negative for COVID RSV influenza upon admission. Due to concern for COPD exacerbation contributing he received treatment with IV steroids. Patient was preferring to use his home inhalers and not opting for nebulization treatment here. Hospital course has been complicated by ROCKY, thought to be related to overdiuresis from Lasix. He was ext[facility] on September 05, 2024 [facility] Lower extremity pitting edema is improving per review of chart. This afternoon at the time of rounds he was noted to be extremely lethargic, able to answer his name, however not much else. He was extremely somnolent. ABG was performed which showed evidence of respiratory acidosis with pH of 7.19, PCO2 of 110, pO2 of 77.8, bicarb of 41.6, O2 sat of 92%. He was placed on AVAPS ventilation following which his ABG has currently improved. pCO2 down to 53.7 with respiratory alkalosis now. Adjusting settings of BiPAP. Patient has been ordered to wear BiPAP daily while he remains in the hospital at nighttime. His mental status is improved as the hypercapnia has resolved. Ordered for standing nebulization. With DuoNeb every [address] chest taken yesterday showing right lower lobe infiltrate concerning for pneumonia. Suspect patient is aspirating. Will obtain swallow evaluation. Start ceftriaxone 1 g IV empirically given his new interval development. Will encourage incentive spirometry once mental status improves further. Check lithium and lamotrigine levels in case contributing. Last lithium level checked on August 23, 2024 at 0.1. He has been receiving treatment with linezolid 600 mg every 12 hours since September 03, 2024.D/c today as completed 7 days empiric treatment. Nasal MRSA screening is negative For CHF continue lasix 40mg BID po, appreciate nephrology recommendations PDMP PDMP Reviewed: Not Reviewed Attestations 2 Medical Necessity Statement*: Hypercapneic resp acidosis today, needs Bipap , add schedule nebs, start ceftriaxone Coding Level of Care Code Acute Code for Chg Fwd Diagnoses CHF exacerbation I50.9 COPD exacerbation J44.1 Acute respiratory failure with hypoxia and hypercapnia J96.01; J96.02 Anxiety F41.9 Herpes labialis B00.1 ROCKY (acute kidney injury) N17.9
[2024-09-09] MEDS: atorvastatin 40 mg Tablet PO (17:24)
[2024-09-09] MEDS: montelukast sodium 10 mg Tablet PO (17:24)
[2024-09-09] MEDS: mirtazapine 30 mg Tablet PO (20:30)
[2024-09-09] MEDS: lamoTRIgine 100 mg Tablet 200 MG PO (20:30)
[2024-09-09] MEDS: methocarbamol 500 mg Tablet PO (20:30)
[2024-09-09] MEDS: quetiapine 100 mg Tablet PO (20:30)
[2024-09-09] MEDS: cefTRIAXone 1,000 mg SDV 1000 MG IVP (20:37)
[2024-09-09] MEDS: ipratropium-albuterol 3 mL Neb INHALATION (20:43)
[2024-09-09] MEDS: budesonide 0.5 mg/2 mL Neb INHALATION (20:43)
[2024-09-09 20:52] LABS: ABG PH Result 7.36 (7.35-7.45); Alveolar-Arterial Oxygen Gradi 3.1 mmHg (5-10); Arterial Blood Gas Hematocrit 35.2 % (42-52); Base Excess ABG 14.4 mmol/L (-2.0-2.0); Blood Gas Operator Identificat ED; Blood Gas Sample Site Brachial, left; Blood Gas Sample Type Arterial; Carboxyhemoglobin 1.5 %THgb (0.4-20.1); HCO3 ABG 42.9 mmol/L (22-26); HGB O2 Sat 97.6 % (95-100); Ionized Calcium Level - ABG 1.4 mmol/L (1.1-1.4); Methemoglobin 0.2 % (0.4-1.5); Oxygen Device NC; Oxygen Saturation ABG > 99.1; PO2 FiO2 Ratio Arterial Blood 353; Potassium Level - ABG 3.3 mmol/L (3.5-5.0); Total Hemoglobin 11.5 g/dL (14-18)
[2024-09-09 20:53] LABS: ABG PCO2 75.9 mmHg (35-45)
--- NOTE | 2024-09-09 21:36 | PC.RESP ---
Therapist entered the room around 2014 and patient was off of bipap on 3LPM NC. Nurse had taken him off of bipap to eat as patient stated. ABG was not done until patient was off of bipap for 30min. Blood gas was done and patient was placed immediately back on bipap, per abg results. Therapist explained to patient and family member the reasons why the bipap needs to be wore at this time. Nurse was then notified that patient was on bipap.
[2024-09-10] VITALS (19 sets, daily range): BP systolic 103–161; BP diastolic 65–97; PULSE 57–75; RESP 15–18; TEMP 36.7–37.2; O2SAT 92–100; BMI 34.7
[2024-09-10] MEDS: piperacillin-tazobactam 3.375 GM in sodium chloride 0.9% (plus) 50 ML IV ×2 (00:09→06:34)
[2024-09-10] MEDS: ipratropium-albuterol 3 mL Neb INHALATION ×4 (02:38→21:05)
[2024-09-10 05:18] LABS: Basophils % 0.1 %; Eosinophils # 0.1 10^3/uL (0.0-0.8); Eosinophils % 0.6 %; Hematocrit 32.9 % (37-53); Lymphocytes # 1.2 10^3/uL (0.8-4.8); Lymphocytes % 9.3 %; Mean Corpuscular HGB Conc 29.8 g/dL (30-55); Mean Corpuscular Hemoglobin 30.8 pg (27-33); Mean Corpuscular Volume 103.5 fl (82-101); Mean Platelet Volume 10.5 fL (7.4-10.4); Monocytes # 0.6 10^3/uL (0.2-0.9); Monocytes % 4.4 %; Neutrophils # 11.04 10^3/uL (1.8-7.7); Neutrophils % 84.7 %; Nucleated Red Blood Cells # 0.1 /100WBC; Nucleated Red Blood Cells % 0.4 %; Platelet Count 217 10^3/cmm (157-399); Red Blood Count 3.18 10^6/uL (3.85-5.65); Red Cell Distribution Width 13.3 % (12.1-15.1); White Blood Count 13.05 10^3/uL (3.29-11.43)
[2024-09-10 05:39] LABS: Alanine Aminotransferase 32 U/L (0-41); Albumin Level 3.3 g/dL (3.5-5.2); Alkaline Phosphatase 61 U/L (40-130); Anion Gap 13.5 (5-19); Aspartate Amino Transferase 9 U/L (0-40); Blood Urea Nitrogen 36 mg/dL (8-23); Calcium 10.5 mg/dL (8.5-10.5); Carbon Dioxide 36 mmol/L (22-29); Chloride 95 mmol/L (98-107); Creatinine Clr Calc Pharmacy 59.7836; Globulin 1.8 g/dL (1.3-4.6); Glomerular Filtration Rate 54.6 mL/min (90-130); Glucose 138 mg/dL (65-115); Osmolality Calculated 303 mOsm/kg (285-295); Potassium 3.5 mmol/L (3.5-5.1); Sodium 141 mmol/L (136-145); Total Bilirubin 0.6 mg/dL (0.15-1.2); Total Protein 5.1 g/dL (6.6-8.7)
[2024-09-10 05:43] LABS: Lithium 1.4 mmol/L (0.6-1.2)
--- NOTE | 2024-09-10 07:43 | PC.NURSE ---
Pt very upset that he cannot remove his BIPAP due to sats dropping into the 70s. Upon this nurse entering the room, pt had his BIPAP off. Sats in the 70s. Pt advised why BIPAP needs to stay on. He is very upset that he must leave it on all the time. Dr. Lee advised that pt would like to see her joon. Pt assisted in putting BIPAP back on
[2024-09-10] MEDS: budesonide 0.5 mg/2 mL Neb INHALATION ×2 (08:03→21:05)
[2024-09-10] MEDS: aspirin 81 mg EC Tablet PO (08:30)
[2024-09-10] MEDS: predniSONE 20 mg Tablet PO (08:30)
[2024-09-10] MEDS: FUROsemide 40 mg Tablet PO ×2 (08:30→14:40)
[2024-09-10] MEDS: lithium carbonate 300 mg Capsule PO (08:30)
--- NOTE | 2024-09-10 10:13 | P.PN_ITS ---
Subjective 2 Subjective: Events noted Medications: Reviewed: Yes Vitals/I&O/Wt Last Vital Signs Temp 98.9 F 09/10/24 08:00 Pulse 60 09/10/24 08:20 Resp 17 09/10/24 08:03 BP 124/74 09/10/24 08:00 Pulse Ox 98 09/10/24 08:06 O2 Del Method BiPAP 09/10/24 08:03 O2 Flow Rate 30 09/10/24 08:00 FiO2 30 09/10/24 08:06 09/09/24 09/10/24 09/10/24 22:59 06:59 14:59 Intake Total 50 / 520 1190 / 1710 110 / 110 Output Total 650 / 650 2000 / 2650 Balance -600 / -130 -810 / -940 110 / 110 Weight last 48 hrs Weight 100.698 kg Weight 100.698 kg Physical Exam 2 Narrative: No distress S1S2 RRR per report Lungs clear per report no edema Urinary Catheter Management: Cunningham: Cath Placed During This Visit: yes Reason for Continuing Indwelling Catheter: Other Urinary Catheter Date of Insertion: 09/03/24 Urinary Catheter Time of Insertion: 09:34 Data 09/10/24 04:57 09/10/24 04:57 Micro: Microbiology 09/08/24 12:34 Urine Culture - Preliminary Urine,Clean Catch Yeast species A&P Assessment and plan (1) ROCKY (acute kidney injury): Plan 1. Acute on chronic kidney disease stage III: Baseline creatinine in the 1.1- 1.5 range previously, creatinine was 1.1 on presentation . Status post IV diuresis due to CHF exacerbation. -Switch to oral lasix , 2 g sodium restriction 1500 mL fluid restriction -Arrange nephrology follow-up at discharge -No hydronephrosis on ultrasound, UA shows positive protein and positive blood with microscopic hematuria but in the setting of Cunningham placement-prior UA is without any microscopic hematuria, will repeat UA for now - Cr stable to 1.3-1.8 range ( likely his baseline now ) , monitor 2. Acute on chronic respiratory failure multifactorial in the setting of CHF salvation and systolic and COPD exacerbation - has hypercapneic resp failure , s/p BIPAP 3. Metabolic alkalosis, mild, in the setting of aggressive IV diuresis, monitor 4. History of CHF 5. Anemia: Check iron studies Patient evaluated using audiovisual cart. Time spent 40 minutes. PDMP PDMP Reviewed: Not Reviewed Attestations 2 Medical Necessity Statement*: per [facility] Coding Level of Care Code Acute Code for Chg Fwd Diagnoses ROCYK (acute kidney injury) N17.9
--- NOTE | 2024-09-10 11:08 | PC.OT ---
OT TREATMENT ATTEMPTED; PATIENT REFUSES SKILLED OT TREATMENT AT THIS TIME; STATES, SAIDA () WILL DO WHATEVER I NEED HER TO DO
[2024-09-10] MEDS: enoxaparin 40 mg/0.4 mL Syringe SUBCUT (14:40)
--- NOTE | 2024-09-10 14:40 | PM.PN ---
Subjective Subjective: Patient is awake alert and oriented today. He is able to have a full conversation. He was upset at having to wear the BiPAP this morning. He states he has noticed that he needs to be on continuous BiPAP during the daytime. However since his ABG corrected very quickly, it is only ordered for sleep time. Medications: Reviewed: Yes Vitals/I&O/Wt Last Vital Signs Temp 98.4 F 09/10/24 12:00 Pulse 67 09/10/24 14:00 Resp 18 09/10/24 13:40 BP 122/65 09/10/24 12:00 Pulse Ox 96 09/10/24 13:40 O2 Del Method Nasal Cannula 09/10/24 13:40 O2 Flow Rate 3 09/10/24 13:40 FiO2 30 09/10/24 08:06 09/09/24 09/10/24 09/10/24 22:59 06:59 14:59 Intake Total 50 / 520 1190 / 1710 110 / 110 Output Total 650 / 650 2000 / 2650 500 / 500 Balance -600 / -130 -810 / -940 -390 / -390 Weight last 48 hrs Weight 100.698 kg Weight 100.698 kg Physical Exam Narrative: General: No acute distress, AO x3, chronically ill-appearing HEENT: PERRLA, pupils bilaterally equal and reactive, pallors not present Chest: Normal vesicular breath sounds, no added sounds, equal good air entry bilaterally CVS: S1-S2 regular, no murmurs, no tachycardia, no gallops, no rubs Abdomen: Soft, nontender, no organomegaly, bowel sounds present Neuro: No focal deficits, no facial deformity, AO x3, power 5/5 in all limbs Urinary Catheter Management: Cunningham: Cath Placed During This Visit: yes, but has since been removed by the nurse Reason for Continuing Indwelling Catheter: Acute Urinary Retention or Obstruction Urinary Catheter Date of Insertion: 09/03/24 Urinary Catheter Time of Insertion: 09:34 Date Urinary Catheter Removed: 09/10/24 Time Urinary Catheter Discontinued: 12:27 Data 09/10/24 04:57 09/10/24 04:57 Micro: Microbiology 09/08/24 12:34 Urine Culture - Preliminary Urine,Clean Catch Yeast species A&P Assessment and plan (1) CHF exacerbation: ROCKY noted with some worsening again today at 1.8. Requested renal ultrasound. Hold diuretics further. Reviewed ultrasound, without hydronephrosis. Reassess chemistry: To see stabilization prior to discharge. Requesting urine urea, urine creatinine to see if may help distinguish prerenal versus renal causes. Discussed with nursing, transplant case manager. Reassess renal function. With acute systolic and diastolic congestive heart failure with respiratory failure, fluid overload with pulmonary edema, lower extremity edema, will treat with IV diuresis with Lasix IV twice daily 40 mg, monitor intake and output, reassess electrolytes with risk of electrolyte deficiency with IV steroids, risk of ROCKY. Complete troponin EKG series to assess for ischemia. Monitor on telemetry. (2) COPD exacerbation: Transition to oral corticosteroids with prednisone 40 mg daily, continue breathing treatments. COPD exacerbation with respiratory distress respiratory failure as above. His reports diminished air entry over the preceding several days. Will continue treatment with IV steroid with Solu-Medrol as above, monitor for risk of complications. Continue IV antibiotic empiric coverage. Breathing treatments. Mechanical ventilatory support, RT assessment and treatment, wean sedation in the morning, breathing trial in the morning. Complicated by severe anxiety. (3) Acute respiratory failure with hypoxia and hypercapnia: Overall some improvement in oxygenation, so far study on 3 L nasal cannula. On 3 L nasal cannula, reviewed vitals, CBC, BMP, subjectively he is improving. He is maintain saturation 3 L at rest, however, with exertion becoming tremulous, dyspneic, easily fatigued. PT assessment requested. Continue oxygen support. Will hold evening diuretic for now due to some worsening renal function, creatinine up to 1.4. Reassess renal function. Continue Solu-Medrol, breathing treatments, empiric antibiotic coverage. Reviewed vitals, CBC, ABG, CMP, discussed with nursing, transplant case manager, respiratory parameters with improvement, tachypnea resolved, tachycardia resolved, Improvement in air entry with clear lung sounds. Without sign of ongoing fluid overload on lung assessment bilateral front upper as well as lower lateral chest. Does have peripheral edema. Sedation being weaned, so far waking up and is following directions. Significant difficulties with weaning sedation during prior extubation attempt, Precedex requested per protocol to assist with EMILIE extubation severe anxiety control. Continue to wean sedation, breathing trial. Will continue treatment of CHF exacerbation with diuresis, COPD exacerbation with IV Solu-Medrol, breathing treatments, empiric antibiotic coverage. Monitor for risk of hyperglycemia, hypertension, gastritis, encephalopathy with IV steroid. Follow-up sputum culture, blood culture. Reviewed MRSA PCR, negative (4) Anxiety: Severe underlying anxiety making extubation difficulty and preceding hospitalization. Discussed possible need of Precedex drip periextubation. Additionally with anxiety and severe claustrophobia with BiPAP at home with his usual mask. His will be working with respiratory, equipment supplier to see if a different type of mask can be procured for him. (5) Herpes labialis: Add renally dosed valacyclovir (6) ROCKY (acute kidney injury): Further worsening of creatinine up to 1.8. BUN 49. Obtain urine urea, urine creatinine. Obtained and reviewed urine ultrasound, no obstructive uropathy. Hold IV diuretic in the afternoon. Reassess renal function. Plan Insomnia: Add melatonin. Right arm superficial thrombophlebitis: Basilic vein noted on venous duplex. Elevate extremity. Intolerance of BiPAP mask: New mask is ordered and should be arriving soon per discussion with transplant case manager. Ischemic cardiomyopathy: History of EF 25-30%. CAD status post stenting: Continue aspirin, statin, CKD History of gastritis: Continue PPI 09/07/2024 Creatinine 1.7 today. Possibly cardiorenal syndrome. Patient appears to be fluid overloaded with crackles on exam and bilateral 2-3+ pitting edema. ? I will restart Lasix 40 IV twice daily ? Renal ultrasound reviewed. No hydronephrosis present. Will continue Lasix 40 IV twice daily. ? Consult nephrology. Renally dosed valacyclovir to be continued. ? Continue prednisone 20 daily orally. ? Continue IV Zosyn ? Leukocytosis, WBC 17,000 most likely secondary to steroid use? ? ET tube sputum culture negative. ? Blood cultures negative to date ? Will recheck chest x-ray today. ? Continue aspirin statin ? I believe patient will require greater than 48-hour inpatient stay at this time secondary to ROCKY, fluid overload status and to medically optimize him the best possible. ? Patient agreeable for further treatment. 09/08/2024 ROCKY improving, creatinine down to 1.4 Lower extremity edema has also improved to 1-2+ edema compared to yesterday. Continue Lasix 40 IV twice daily at this time. Continue prednisone IV Zosyn. White count down to 13,000. CT chest did not show any pneumonia. Continue aspirin and statin Continue current treatment. Potentially discharge home in next 48 to 72 hours once patient has been optimized. September 09, 2024 68M with history of CAD, ischemic cardiomyopathy with last known EF 25% status post AICD placement, chronic hypoxic respiratory failure, COPD who is supposed to be on daily night time BIPAP but has not been using due to issues with ill fitting masks. He is currently admitted to the hospital since 09/03/2024 after presenting with shortness of breath and respiratory distress for which he was intubated upon admission. Overall clinical impression was that of acute on chronic systolic and diastolic congestive heart failure for which patient has been on IV diuresis. Respiratory panel was negative for COVID RSV influenza upon admission. Due to concern for COPD exacerbation contributing he received treatment with IV steroids. Patient was preferring to use his home inhalers and not opting for nebulization treatment here. Hospital course has been complicated by ROCKY, thought to be related to overdiuresis from Lasix. He was extubated on September 05, 2024 and is currently on a [facility] floor. Lower extremity pitting edema is improving per review of chart. This afternoon at the time of rounds he was noted to be extremely lethargic, able to answer his name, however not much else. He was extremely somnolent. ABG was performed which showed evidence of respiratory acidosis with pH of 7.19, PCO2 of 110, pO2 of 77.8, bicarb of 41.6, O2 sat of 92%. He was placed on AVAPS ventilation following which his ABG has currently improved. pCO2 down to 53.7 with respiratory alkalosis now. Adjusting settings of BiPAP. Patient has been ordered to wear BiPAP daily while he remains in the hospital at nighttime. His mental status is improved as the hypercapnia has resolved. Ordered for standing nebulization. With DuoNeb every [address] chest taken yesterday showing right lower lobe infiltrate concerning for pneumonia. Suspect patient is aspirating. Will obtain swallow evaluation. Start ceftriaxone 1 g IV empirically given his new interval development. Will encourage incentive spirometry once mental status improves further. Check lithium and lamotrigine levels in case contributing. Last lithium level checked on August 23, 2024 at 0.1. He has been receiving treatment with linezolid 600 mg every 12 hours since September 03, 2024.D/c today as completed 7 days empiric treatment. Nasal MRSA screening is negative For CHF continue lasix 40mg BID po, appreciate nephrology recommendations 09/10/2024. Reinforced importance of wearing sleep time BiPAP. Hypercapnic respiratory failure is improved today. encourage compliance with BiPAP. Extensively counseled that should he refuse to wear BiPAP, with risk of developing hypercapnia, remains at high risk of reintubation. He states he was unaware that BiPAP can be helpful to avoid intubation and appears to be more compliant with a the idea now. States that he has a new mask at home. Instructed his to bring in the mask so that we can teach him proper fit and use it while he is here in the hospital. Bicarb up to 42 today. Increased from 29 on September 04, 2024. May be partially contributed by his Lasix. Change Lasix to 40 mg p.o. daily. Add acetazolamide 250 mg today. [place] level noted to be elevated reduce dose to 300 daily. Holding gabapentin to reduce somnolence. Continue DuoNeb, budesonide, sleep time BiPAP today. Speech therapy consult appreciated. Level 7 mechanical diet recommended. Patient was ordered for dysphagia level 4 diet today, however he is noncompliant. He has ordered food from outside and eating burgers and fries at this time. PDMP PDMP Reviewed: Not Reviewed Attestations Medical Necessity Statement*: continued monitoring of resp status, diuresis change as above. D/c krystin, monitor next 24 hrs with above changes Coding Level of Care Code Acute Code for Chg Fwd Diagnoses CHF exacerbation I50.9 COPD exacerbation J44.1 Acute respiratory failure with hypoxia and hypercapnia J96.01; J96.02 Anxiety F41.9 Herpes labialis B00.1 ROCKY (acute kidney injury) N17.9
--- NOTE | 2024-09-10 15:24 | PC.NURSE ---
has brought in home BIPAP mask and left in pt room. Janeth from [facility], educates pt on how to put mask on and adjust fit to avoid leaks.
[2024-09-10] MEDS: acetaZOLAMIDE 250 mg Tablet PO (17:46)
[2024-09-10] MEDS: montelukast sodium 10 mg Tablet PO (17:46)
[2024-09-10] MEDS: atorvastatin 40 mg Tablet PO (17:46)
[2024-09-10] MEDS: nystatin cream 30 gm 1 APPLIC TOPICAL (17:46)
[2024-09-10] MEDS: morphine 4 mg/mL SDV 1 mL 1 MG IVP (20:33)
[2024-09-10] MEDS: quetiapine 100 mg Tablet PO (20:34)
[2024-09-10] MEDS: methocarbamol 500 mg Tablet PO (20:34)
[2024-09-10] MEDS: mirtazapine 30 mg Tablet PO (20:34)
[2024-09-10] MEDS: lamoTRIgine 100 mg Tablet 200 MG PO (20:34)
[2024-09-11] VITALS (11 sets, daily range): BP systolic 143–151; BP diastolic 68–79; PULSE 56–70; RESP 14–20; TEMP 36.5–36.8; O2SAT 60–99
[2024-09-11] MEDS: ipratropium-albuterol 3 mL Neb INHALATION ×3 (01:26→13:16)
[2024-09-11] MEDS: budesonide 0.5 mg/2 mL Neb INHALATION (07:43)
[2024-09-11] MEDS: FUROsemide 40 mg Tablet PO (08:46)
[2024-09-11] MEDS: predniSONE 20 mg Tablet PO (08:46)
[2024-09-11] MEDS: pantoprazole DR 40 mg Tablet PO (08:46)
[2024-09-11] MEDS: aspirin 81 mg EC Tablet PO (08:47)
[2024-09-11] MEDS: lithium carbonate 300 mg Capsule PO (09:12)
--- NOTE | 2024-09-11 10:02 | PC.SOCIAL ---
IMM Update pg 2 of IMM Updated and reviewed w/ patient. Copy provided and copy dated, initialed and placed in chart.
--- NOTE | 2024-09-11 10:06 | PC.SOCIAL ---
IMM Update pg 2 of IMM Updated and reviewed w/ patient. Copy provided and copy dated, initialed and placed in chart.
--- NOTE | 2024-09-11 11:38 | PC.OT ---
OT TREATMENT ATTEMPTED; PATIENT REFUSES OT TREATMENT AGAIN TODAY STATING THAT MOMMA () WI HELP HIM AT HOME. PATIENT DOES NOT WISH TO CONTINUE WITH SKILLED OT TREATMENT; D/C OT
--- NOTE | 2024-09-11 11:49 | P.PN_ITS ---
Subjective 2 Subjective: no new c/o Medications: Reviewed: Yes Vitals/I&O/Wt Last Vital Signs Temp 98.3 F 09/11/24 11:41 Pulse 70 09/11/24 11:41 Resp 17 09/11/24 11:41 BP 143/79 09/11/24 11:41 Pulse Ox 99 09/11/24 11:41 O2 Del Method Nasal Cannula 09/11/24 11:41 O2 Flow Rate 3 09/11/24 07:43 FiO2 30 09/11/24 03:18 09/10/24 09/11/24 09/11/24 22:59 06:59 14:59 Intake Total 120 / 230 Output Total 1000 / 1500 150 / 1650 800 / 800 Balance -1000 / -1390 -30 / -1420 -800 / -800 Weight last 48 hrs Weight 107.365 kg Weight 100.698 kg Physical Exam 2 Narrative: No distress S1S2 RRR per report Lungs clear per report no edema Urinary Catheter Management: Cunningham: Cath Placed During This Visit: yes, but has since been removed by the nurse Reason for Continuing Indwelling Catheter: Acute Urinary Retention or Obstruction Urinary Catheter Date of Insertion: 09/03/24 Urinary Catheter Time of Insertion: 09:34 Date Urinary Catheter Removed: 09/10/24 Time Urinary Catheter Discontinued: 12:27 Data 09/10/24 04:57 09/10/24 04:57 Micro: Microbiology 09/08/24 12:34 Urine Culture - Preliminary Urine,Clean Catch Yeast species A&P Assessment and plan (1) ROCKY (acute kidney injury): Plan 1. Acute on chronic kidney disease stage III: Baseline creatinine in the 1.1- 1.5 range previously, creatinine was 1.1 on presentation . Status post IV diuresis due to CHF exacerbation. -Switch to oral lasix , 2 g sodium restriction 1500 mL fluid restriction -Arrange nephrology follow-up at discharge -No hydronephrosis on ultrasound, UA shows positive protein and positive blood with microscopic hematuria but in the setting of Cunningham placement-prior UA is without any microscopic hematuria, will repeat UA for now - Cr stable to 1.3-1.8 range ( likely his baseline now ) , monitor 2. Acute on chronic respiratory failure multifactorial in the setting of CHF salvation and systolic and COPD exacerbation - has hypercapneic resp failure , s/p BIPAP 3. Metabolic alkalosis, mild, in the setting of aggressive IV diuresis, monitor 4. History of CHF 5. Anemia: Check iron studies Patient evaluated using audiovisual cart. Time spent 40 minutes. PDMP PDMP Reviewed: Not Reviewed Attestations 2 Medical Necessity Statement*: per medicine Coding Level of Care Code Acute Code for Chg Fwd Diagnoses ROCKY (acute kidney injury) N17.9
--- NOTE | 2024-09-11 13:31 | PC.NURSE ---
Pt still waiting on his to drive him home. This nurse speaks with on the phone. States that she will be here in minutes to warehouse picker pt and she will bring his oxygen tank.
--- NOTE | 2024-09-11 14:23 | PM.DCS ---
Discharge Providers Date of Admission: 09/03/24 10:37 Date of Discharge: September 11, 2024 Attending Provider at Admission: Garrison Sierra Attending Provider at Discharge: Nitza Lee MD Primary Care Provider: Chanell Lee MD Diagnoses at Discharge Discharge Diagnosis (1) ROCKY (acute kidney injury): Status: Acute (2) CHF exacerbation: Status: Acute (3) Acute and chronic respiratory failure with hypercapnia: Status: Acute (4) COPD exacerbation: Status: Acute Reason for Visit Reason for Visit: resp distress Hospital Course Hospital Course 68M with history of CAD, ischemic cardiomyopathy with last known EF 25% status post AICD placement, chronic hypoxic respiratory failure, COPD who is supposed to be on daily night time BIPAP but has not been using due to issues with ill fitting masks. He was admitted to the hospital since 09/03/2024 after presenting with shortness of breath and respiratory distress for which he was intubated upon admission. Overall clinical impression was that of acute on chronic systolic and diastolic congestive heart failure for which patient has been on IV diuresis. Respiratory panel was negative for COVID RSV influenza upon admission. Due to concern for COPD exacerbation contributing he received treatment with IV steroids. Patient was preferring to use his home inhalers and not opting for nebulization treatment here. Hospital course has been complicated by ROCKY, thought to be related to overdiuresis from Lasix. Now improving. C down to 1.3. He was extubated on September 05, 2024. his edema is much improved. Overall net negative 6.9L. On 09/09, he was noted to be extremely lethargic, able to answer his name, however not much else. He was extremely somnolent. ABG was performed which showed evidence of respiratory acidosis with pH of 7.19, PCO2 of 110, pO2 of 77.8, bicarb of 41.6, O2 sat of 92%. He was placed on AVAPS ventilation following which his ABG improved. pCO2 down to 53.7 . His mentation returned to baseline afterwards. Patient has been ordered to wear BiPAP daily at nighttime and during naps even at home. His was able to obtain a new mask for him. We asked him to bring the mask to the hospital and showed him proper fitting. He states that his current mask fits well and he is encouraged to use the BiPAP at home. There was concern for potential aspiration pneumonia for which he received antibiotic coverage. These have been discontinued at the time of discharge as he has completed an adequate course. Swallow evaluation was sought and mechanical 7 diet was recommended, however patient has been noncompliant with dietary restrictions even while here in the hospital. [place] level was high at 1.4, dose adjusted to 300mg daily- please follow up with your primary care physician for any further titration in the dose. For CHF continue lasix 40mg daily, instructed to take an additional dose of 20 mg/day should he gain more than 3 pounds in 2 days. F/up with cardiology . He feels improved at the time of discharge and eager to return home. Physical Exam Narrative: General: No acute distress, AO x3 HEENT: PERRLA, pupils bilaterally equal and reactive, pallors not present Chest: Normal vesicular breath sounds, no added sounds, equal good air entry bilaterally CVS: S1-S2 regular, no murmurs, no tachycardia, no gallops, no rubs Abdomen: Soft, nontender, no organomegaly, bowel sounds present Neuro: No focal deficits, no facial deformity, AO x3, power 5/5 in all limbs Urinary Catheter Management: Cunningham: Cath Placed During This Visit: yes, but has since been removed by the nurse Reason for Continuing Indwelling Catheter: Acute Urinary Retention or Obstruction Urinary Catheter Date of Insertion: 09/03/24 Urinary Catheter Time of Insertion: 09:34 Date Urinary Catheter Removed: 09/10/24 Time Urinary Catheter Discontinued: 12:27 Discharge Data Studies Completed and Pending Completed Studies During Hospitalization Category Date Time Status CT chest wo con [id number] Routine Cat Scan 09/07/24 19:16 Completed XR chest 1V portable [id number] Routine Exams 09/07/24 12:44 Completed XR chest 1V portable [id number] Stat Exams 09/03/24 09:04 Completed US renal BI* [id number] Routine Ultrasound 09/06/24 10:42 Completed US venous duplex upper extremity RT [CV venous duplex Ultrasound 09/05/24 11:12 [place] [id number]] Routine Pending at discharge Category Date Time Status Lamotrigine (Lamictal) Level AM LABS Lab 09/10/24 04:57 Received Urine Culture Routine Lab 09/08/24 12:34 Results Radiology Impressions Renal Ultrasound 09/06/24 10:42 IMPRESSION: 1. No hydronephrosis in either kidney. 2. Simple bilateral renal cysts described above. Chest X-Ray 09/07/24 12:44 IMPRESSION: There is a small pleural effusion in the left base. Can not exclude accompanying infiltrate or atelectasis. Atelectasis is also suspected in the right base. Chest CT 09/07/24 19:16 IMPRESSION: New consolidation at the right lower lobe compatible with pneumonia. Laboratory Results WBC 13.05 10^3/uL (3.29-11.43) H 09/10/24 04:57 RBC 3.18 10^6/uL (3.85-5.65) L 09/10/24 04:57 Hgb 9.80 g/dL (11.27-16.99) L 09/10/24 04:57 Hct 32.9 % (37-53) L 09/10/24 04:57 MCV 103.5 fl (82-101) H 09/10/24 04:57 MCH 30.8 pg (27-33) 09/10/24 04:57 MCHC 29.8 g/dL (30-55) L 09/10/24 04:57 RDW 13.3 % (12.1-15.1) 09/10/24 04:57 Plt Count 217 10^3/cmm (157-399) 09/10/24 04:57 MPV 10.5 fL (7.4-10.4) H 09/10/24 04:57 Neut % (Auto) 84.7 % 09/10/24 04:57 Lymph % (Auto) 9.3 % 09/10/24 04:57 Elbert % (Auto) 4.4 % 09/10/24 04:57 Eos % (Auto) 0.6 % 09/10/24 04:57 Baso % (Auto) 0.1 % 09/10/24 04:57 Neut # (Auto) 11.04 10^3/uL (1.8-7.7) H 09/10/24 04:57 Lymph # (Auto) 1.2 10^3/uL (0.8-4.8) 09/10/24 04:57 Elbert # (Auto) 0.6 10^3/uL (0.2-0.9) 09/10/24 04:57 Eos # (Auto) 0.1 10^3/uL (0.0-0.8) 09/10/24 04:57 Baso # (Auto) 0.0 10^3/uL (0.0-0.1) 09/10/24 04:57 Nucleated RBC % (auto) 0.4 % 09/10/24 04:57 Nucleated RBCs # 0.1 /100WBC 09/10/24 04:57 Specimen Type Arterial 09/09/24 20:42 Sample Site Brachial, left 09/09/24 20:42 ABG pH 7.36 (7.35-7.45) 09/09/24 20:42 ABG pCO2 75.9 mmHg (35-45) H* 09/09/24 20:42 ABG pO2 113.0 mmHg (80.0-100.0) H 09/09/24 20:42 ABG PO2/FiO2 Ratio 353 09/09/24 20:42 ABG HCO3 42.9 mmol/L (22-26) H 09/09/24 20:42 ABG O2 Saturation > 99.1 09/09/24 20:42 ABG Base Excess 14.4 mmol/L (-2.0-2.0) H 09/09/24 20:42 Obed Test N/a 09/09/24 20:42 A-a O2 Gradient 3.1 mmHg (5-10) L 09/09/24 20:42 Hematocrit 35.2 % (42-52) L 09/09/24 20:42 Hgb O2 Saturation 97.6 % (95-100) 09/09/24 20:42 Carboxyhemoglobin 1.5 %THgb (0.4-20.1) 09/09/24 20:42 Methemoglobin 0.2 % (0.4-1.5) L 09/09/24 20:42 Total Hemoglobin 11.5 g/dL (14-18) L 09/09/24 20:42 Sodium 137.0 mmol/L (131-143) 09/09/24 20:42 Potassium 3.3 mmol/L (3.5-5.0) L 09/09/24 20:42 Glucose 296.0 mg/dL (70-115) H 09/09/24 20:42 Ionized Calcium 1.4 mmol/L (1.1-1.4) 09/09/24 20:42 O2 Delivery Device Nc 09/09/24 20:42 O2 Liters/Min 3.0 % 09/09/24 20:42 FiO2 32.0 % 09/09/24 20:42 Tidal Volume 0.55 09/09/24 16:30 PEEP 12.0 cmH20 09/09/24 16:30 Provider Service Representative ID Ed 09/09/24 20:42 Sodium 141 mmol/L (136-145) 09/10/24 04:57 Potassium 3.5 mmol/L (3.5-5.1) 09/10/24 04:57 Chloride 95 mmol/L (98-107) L 09/10/24 04:57 Carbon Dioxide 36 mmol/L (22-29) H 09/10/24 04:57 Anion Gap 13.5 (5-19) 09/10/24 04:57 BUN 36 mg/dL (8-23) H 09/10/24 04:57 Creatinine 1.3 mg/dL (0.7-1.2) H 09/10/24 04:57 GFR Calculation 54.6 mL/min (90-130) L 09/10/24 04:57 Glucose 138 mg/dL (65-115) H 09/10/24 04:57 Calculated Osmolality 303 mOsm/kg (285-295) H 09/10/24 04:57 Lactic Acid 3.6 mmol/L (0.5-2.2) H 09/03/24 09:16 Lactic Acid (Sepsis) 1.6 mmol/L (0.5-2.2) 09/03/24 12:10 Calcium 10.5 mg/dL (8.5-10.5) 09/10/24 04:57 Magnesium 2.1 mg/dL (1.7-2.3) 09/09/24 03:58 Total Bilirubin 0.6 mg/dL (0.15-1.2) 09/10/24 04:57 AST 9 U/L (0-40) 09/10/24 04:57 ALT 32 U/L (0-41) 09/10/24 04:57 Alkaline Phosphatase 61 U/L (40-130) 09/10/24 04:57 Creatine Kinase 15 U/L (39-308) L 09/04/24 03:24 Troponin T Baseline 97 ng/L (0-15) H 09/03/24 09:16 Troponin T 120 Minute 74.24 ng/L (0-15) H 09/03/24 11:06 Delta Troponin T -22.76 ABS# (0-10) L 09/03/24 11:06 Troponin T Hi Sens 6Hr 93.81 ng/L (0-15) H 09/03/24 14:45 Troponin T Hi Sens 6Hr Delta -3.19 ng/L (0-12) L 09/03/24 14:45 Total Protein 5.1 g/dL (6.6-8.7) L 09/10/24 04:57 Albumin 3.3 g/dL (3.5-5.2) L 09/10/24 04:57 Globulin 1.8 g/dL (1.3-4.6) 09/10/24 04:57 Urine Color Yellow (Yellow) 09/08/24 12:34 Urine Appearance Clear (CLEAR) 09/08/24 12:34 Urine pH 5 (5-7) 09/08/24 12:34 Ur Specific [place] 1.015 (1.005-1.030) 09/08/24 12:34 Urine Protein 2+ (Negative) H 09/08/24 12:34 Urine Glucose (UA) Norm (Normal) 09/08/24 12:34 Urine Ketones Negative (Negative) 09/08/24 12:34 Urine Blood Trace (Negative) H 09/08/24 12:34 Urine Nitrate Negative (Negative) 09/08/24 12:34 Urine Bilirubin Neg (Negative) 09/08/24 12:34 Urine Urobilinogen Neg mg/dL (Negative) 09/08/24 12:34 Ur Leukocyte Esterase 2+ (Negative) H 09/08/24 12:34 Urine RBC >100 /hpf (0-2) H 09/08/24 12:34 Urine WBC 51-100 /hpf (0-5) H 09/08/24 12:34 Ur Squamous Epith Cells 0-5 /hpf (0-5) 09/08/24 12:34 Amorphous Sediment Not Reportable 09/08/24 12:34 Urine Bacteria None seen /hpf (NONE) 09/08/24 12:34 Hyaline Casts 22.33 /lpf 09/08/24 12:34 Fine Granular Casts 0-4 /lpf H 09/03/24 09:35 Urine Yeast 2+ /hpf H 09/08/24 12:34 Ur Random Urea Nitrogn 620 mg/dL 09/08/24 12:34 Urine Creatinine 89 mg/dL (39-259) 09/08/24 12:34 Nasal MRSA (PCR) Not detected (Negative) 09/03/24 12:57 [place] 1.4 mmol/L (0.6-1.2) H 09/10/24 04:57 Influenza A (PCR) Negative (Negative) 09/03/24 09:36 Influenza Type B (PCR) Negative (Negative) 09/03/24 09:36 RSV (PCR) Negative (Negative) 09/03/24 09:36 SARS-CoV-2 (PCR) Negative (Negative) 09/03/24 09:36 Vitals Last Vital Signs Temp 98.3 F 09/11/24 11:41 Pulse 68 09/11/24 13:34 Resp 18 09/11/24 13:16 BP 143/79 09/11/24 11:41 Pulse Ox 97 09/11/24 13:16 O2 Del Method Nasal Cannula 09/11/24 13:16 O2 Flow Rate 3 09/11/24 13:16 FiO2 30 09/11/24 03:18 Discharge Plan Discharge Patient Disposition: Home Condition: Stable Prescriptions: New prednisone 20 mg tablet 20 mg PO 1XD 5 Days Qty: 5 0RF Rx Instructions: 3 tab daily for 3 days, then 2 tab for 3 days, then 1 tab for 3 days, then 1/2 tab for 4 days. Continued lamotrigine 200 mg tablet 200 mg PO BEDTIME pantoprazole 40 mg tablet,delayed release (DR/EC) 40 mg PO QAM gabapentin 300 mg capsule 900 mg PO BEDTIME aspirin [Adult Low Dose Aspirin] 81 mg tablet,delayed release (DR/EC) 81 mg PO DAILY Qty: 90 3RF mecobalamin (vitamin B12) 1,000 mcg tablet,chewable 1,000 mcg PO DAILY melatonin 10 mg capsule 10 mg PO DAILY methocarbamol 500 mg Tablet 500 mg PO Q12H PRN (Reason: muscle spasms) guaifenesin [Mucinex] 600 mg Tablet Extended Release 12hr 600 mg PO BID acetaminophen [Tylenol Extra Strength] 500 mg Tablet 1,000 mg PO Q6H PRN (Reason: Fever Or Pain) quetiapine 100 mg Tablet 100 mg PO BEDTIME PRN (Reason: DEPRESSION) mirtazapine 30 mg Tablet 30 mg PO BEDTIME fluticasone propion-salmeterol [Advair Diskus] 250-50 mcg/dose Blister With Device 1 inh INHALATION BID montelukast [Singulair] 10 mg Tablet 10 mg PO QPM metformin 500 mg Tablet Extended Release 24 Hr 500 mg PO DAILY potassium chloride 10 mEq tablet,ER particles/crystals 10 meq PO DAILY Stiolto Respimat 2.5-2.5 mcg/actuation mist 2 inh INHALATION DAILY albuterol sulfate 90 mcg/actuation HFA aerosol inhaler 2 puff INHALATION QID PRN (Reason: copd) atorvastatin 80 mg Tablet 80 mg PO QPM cyanocobalamin (vitamin B-12) 1,000 mcg Tablet 1,000 mcg PO DAILY Changed furosemide 40 mg tablet 40 mg PO DAILY 30 Days Qty: 30 0RF lithium carbonate 300 mg Capsule 300 mg PO DAILY 30 Days Qty: 30 0RF Discontinued cholecalciferol (vitamin D3) [Vitamin D3] 50 mcg (2,000 unit) Tablet 50 mcg PO DAILY levofloxacin 500 mg Tablet 500 mg PO DAILY@0600 5 Days Qty: 5 0RF Discharge Orders: Discharge Order (Routine); Ordered 09/11/24 Ordered By: Nitza Lee Referrals: Chanell Lee MD [Primary Care Provider] - 09/16/24 11:30 am (hospital discharge f/up, please recheck lithium level ) Discharge Diet: Cardiac Discharge Activity: Increase activity as tolerated and Oxygen as instructed Patient Instructions: Prednisone (By mouth), Using Oxygen at Home (GEN), Hypoxia (GEN), BiPAP (GEN), COPD Stoplight, Opioid Safety Activity Restrictions/Additional Instructions: Please follow-up with your primary provider for reassessment after COPD exacerbation, CHF exacerbation with respiratory failure, adjustment of lithium dosing. Continue nightly noninvasive ventilation and switch to the new mask once you receive it. Please maintain fluid restriction of 1.5 L total liquid in a day. Weigh daily and keep a weight log. If you gain 3 pounds or more in 2 days time, take an extra Lasix tablet. Please have your primary doctor reassess your kidney function. Seek medical attention in case of any worsening or new concerning symptoms. Wear you bipap daily at nighttime and during naps Discharge Attestations Time Spent in Discharge Care*: greater than 30 min Quality Metrics Clinical Quality Measures [ No reported AMI, CVA or VTE this stay] Coding Level of Care Code Acute Code for Chg Fwd Diagnoses ROCKY (acute kidney injury) N17.9 CHF exacerbation I50.9 Acute and chronic respiratory failure with hypercapnia J96.22 COPD exacerbation J44.1
--- NOTE | 2024-09-11 14:45 | PC.NURSE ---
and son arrive. Discharge instructions provided to pt and family. All verbalize understanding. NO questions or concerns voiced at this time. To private vehicle via wheelchair with all belonings.
[2024-09-12 18:14] LABS: Lamotrigine (Lamictal) Level 3.3 mcg/mL (2.5-15.0)
== END 2024-09-11 15:07 | disposition home or self-care (01) | DRG 208 ==
LOC: ER 09:55 → ER IP 10:37 → ICU 10:39 → MEDSURG 09-05 21:54
PROVIDERS: Hospitalist; Internal Medicine; Admitting Provider Internal Medicine; Emergency Provider Family Medicine; PCP Family Medicine; Visit Provider Student in an Organized Health Care Education/Training Program
DX: J96.22 Acute and chronic respiratory failure with hypercapnia (principal); I50.43 Acute on chronic combined systolic (congestive) and diastolic (congestive) heart failure; I13.0 Hypertensive heart and chronic kidney disease with heart failure and stage 1 through stage 4 chronic kidney disease, or unspecified chronic kidney disease; J44.1 Chronic obstructive pulmonary disease with (acute) exacerbation; E87.4 Mixed disorder of acid-base balance; N17.9 Acute kidney failure, unspecified; J96.21 Acute and chronic respiratory failure with hypoxia; Z99.81 Dependence on supplemental oxygen; Z79.899 Other long term (current) drug therapy; Z79.51 Long term (current) use of inhaled steroids; Z79.84 Long term (current) use of oral hypoglycemic drugs; Z79.82 Long term (current) use of aspirin; F31.9 Bipolar disorder, unspecified; N40.0 Benign prostatic hyperplasia without lower urinary tract symptoms; I25.10 Atherosclerotic heart disease of native coronary artery without angina pectoris; E78.5 Hyperlipidemia, unspecified; Z87.891 Personal history of nicotine dependence; I25.5 Ischemic cardiomyopathy; N18.9 Chronic kidney disease, unspecified; K29.70 Gastritis, unspecified, without bleeding; F40.240 Claustrophobia; N18.30 Chronic kidney disease, stage 3 unspecified; D63.1 Anemia in chronic kidney disease; B00.1 Herpesviral vesicular dermatitis; G47.00 Insomnia, unspecified; I80.8 Phlebitis and thrombophlebitis of other sites; Z95.810 Presence of automatic (implantable) cardiac defibrillator
CPT/HCPCS: 36415; 36600; 51702; 71045; 71250; 76770; 80048; 80051; 80053; 80175; 80178; 81001; 81003; 82330; 82550; 82570; 82803; 82805; 83605; 83735; 84484; 84540; 85025; 87040; 87070; 87086; 87106; 87205; 87637; 92523; 92610; 93005; 93971; 94002; 94003; 94640; 94660; 94799; 96365; 96366; 96367; 96372; 96375; 97110; 97116; 97163; 97167; 97530; 99291; J0696; J1650; J1940; J1956; J2020; J2270; J2405; J2470; J2543; J2704; J2919; J3010; J3490; J7512; J7626; J9999; P9046; Q3014

== ENCOUNTER → 2024-09-23 16:41 | Outpatient (BNVA) | payer OTHER, SELFPAY | PROVIDERS: PCP Family Medicine; Visit Provider Internal Medicine Cardiovascular Disease | DX: I11.0 Hypertensive heart disease with heart failure (principal); I50.20 Unspecified systolic (congestive) heart failure; E78.5 Hyperlipidemia, unspecified; Z87.891 Personal history of nicotine dependence | CPT/HCPCS: 99214 ==

== ENCOUNTER 2024-10-10 10:10 | Emergency (ER) | payer OTHER, SELFPAY ==
[2024-10-10] VITALS (8 sets, daily range): BP systolic 105–140; BP diastolic 65–91; PULSE 60–81; RESP 20–24; TEMP 36.8; O2SAT 96–98; BMI 30.4
--- NOTE | 2024-10-10 10:29 | ECG_ITS ---
[facility] Test Date: 2024-10-10 Pat Name: Jim Carney Department: Room: Gender: Male [employer]acht: : 1955 Requested By: Manny Hudson Order Number: [id number] Estelita MD: ABIOLA BATISTA Measurements Intervals [place] Rate: 61 P: 0 KS: 0 QRS: -42 QRSD: 202 T: 69 QT: 480 QTc: 484 Interpretive Statements ELECTRONIC VENTRICULAR PACEMAKER MARKED ST ELEVATION, CONSIDER ANTEROLATERAL INJURY [MARKED ST ELEVATION W/O NORMALLY INFLECTED T-WAVE IN V3-V6] ACUTE IN Compared to ECG 09/03/2024 16:16:09 ST (T wave) deviation now present Myocardial infarct finding now present Electronically Signed On 10-10-2024 23:28:57 CDT by ABIOLA BATISTA [email or web address]
--- NOTE | 2024-10-10 10:55 | XR_ITS ---
WS: [id number] Exam: XR chest 1V portable [id number] Date/Time of Exam: 10/10/2024 11:15 AM Reason For Exam: SOB, hypoxia Comparison 09/07/2024. There is consolidation of the LEFT lower lobe with LEFT basal pleural effusion. The heart is enlarged. There is pulmonary vascular engorgement. The RIGHT lung is generally clear. No pneumothorax. A permanent cardiac pacer superimposes the LEFT chest. Bony structures are intact. XR/XR chest 1V portable [id number] IMPRESSION: 1. Consolidation of the LEFT lower lobe with LEFT basal pleural effusion. 2. Marked cardiac enlargement with pulmonary vascular engorgement.
[2024-10-10 11:04] LABS: ABG PH Result 7.41 (7.35-7.45); Arterial Blood Gas Hematocrit 33.8 % (42-52); Blood Gas Allen Test Pos; Blood Gas Operator Identificat WALCI; Blood Gas Sample Site Radial, left; Blood Gas Sample Type Arterial; Carboxyhemoglobin 1.8 %THgb (0.4-20.1); HCO3 ABG 45.8 mmol/L (22-26); HGB O2 Sat 95.9 % (95-100); Methemoglobin 0.3 % (0.4-1.5); Oxygen Device NC; PO2 ABG 96.7 mmHg (80.0-100.0)
[2024-10-10 11:05] LABS: ABG PCO2 71.9 mmHg (35-45)
--- NOTE | 2024-10-10 11:10 | PC.PHAR ---
Pt is [facility]spouse verifed pt medications but I have several questions about dosages. Verified per what spouse states and [facility] current [facility] for [facility].
[2024-10-10 11:23] LABS: Basophils # 0.1 10^3/uL (0.0-0.1); Basophils % 0.5 %; Lymphocytes # 1.4 10^3/uL (0.8-4.8); Lymphocytes % 13.6 %; Mean Platelet Volume 11.6 fL (7.4-10.4); Monocytes # 0.8 10^3/uL (0.2-0.9); Monocytes % 8.2 %; Neutrophils # 7.77 10^3/uL (1.8-7.7); Neutrophils % 77.3 %; Nucleated Red Blood Cells % 0 %; Platelet Count 227 10^3/cmm (157-399); Red Cell Distribution Width 14.4 % (12.1-15.1); White Blood Count 10.05 10^3/uL (3.29-11.43)
--- NOTE | 2024-10-10 11:35 | W.ED.SOB ---
HPI - SOB/Dyspnea General: Chief Complaint: Shortness of Breath/Dyspnea Stated Complaint: SOB x 2 weeks Time Seen by Provider: 10/10/24 10:13 Source: patient and family Mode of arrival: EMS Limitations: no limitations History of Present Illness: HPI Narrative: 69-year-old male interested in Semi-Don's position with significant central obesity, bilateral lower extremity edema and using mild accessory muscles. Reports has been compliant with CPAP/BiPAP at home lately. Used a good bit last night, however woke up this morning and was gasping for breath. Breathing really fast when family noticed that his O2 sat was about 78% on 2 L nasal cannula. They put up to 5 and he get to 86%. In the room he is currently 96% on 4 L. Unsure how reclined he was at home. On auscultation patient does have bilateral rales. Denies any fever. Reports that he is leg edema has popped back up over the past 24 to 40 hours. Has been much better. Reports no recent changes in medications. No recent changes in intake. No fever. Related Data Home Medications ?Medication ?Instructions ?Recorded ?Confirmed gabapentin 300 mg capsule 900 mg PO BEDTIME 05/05/22 10/10/24 lamotrigine 200 mg tablet 200 mg PO BEDTIME 05/05/22 10/10/24 pantoprazole 40 mg tablet,delayed 40 mg PO QAM 05/05/22 10/10/24 release guaifenesin 600 mg tablet, 600 mg PO BID PRN Congestion 05/21/24 10/10/24 extended release 12 hr (Mucinex) methocarbamol 500 mg tablet 500 mg PO BEDTIME PRN muscle spasms 05/21/24 10/10/24 mecobalamin (vitamin B12) 1,000 1,000 mcg PO DAILY 06/18/24 10/10/24 mcg chewable tablet melatonin 10 mg capsule 10 mg PO BEDTIME 06/18/24 10/10/24 acetaminophen 500 mg tablet 1,000 mg PO Q6H PRN Fever Or Pain 06/24/24 10/10/24 (Tylenol Extra Strength) quetiapine 100 mg tablet 50 mg PO BEDTIME PRN DEPRESSION 06/24/24 10/10/24 albuterol sulfate 90 mcg/actuation 2 puff inhalation QID PRN copd 08/21/24 10/10/24 aerosol inhaler atorvastatin 80 mg tablet 80 mg PO QPM 08/21/24 10/10/24 cyanocobalamin (vitamin B-12) 1,000 mcg PO DAILY 08/21/24 10/10/24 1,000 mcg tablet fluticasone 250 mcg-salmeterol 50 1 inh inhalation BID 08/21/24 10/10/24 mcg/dose blistr powdr for inhalation (Advair Diskus) montelukast 10 mg tablet 10 mg PO QPM 08/21/24 10/10/24 (Singulair) tiotropium 2.5 mcg-olodaterol 2.5 2 inh inhalation DAILY 08/21/24 10/10/24 mcg/actuation mist for inhalation (Stiolto Respimat) cholecalciferol (vitamin D3) 50 100 mcg PO DAILY 10/10/24 10/10/24 mcg (2,000 unit) tablet (Vitamin D3) lisinopril 10 mg tablet 5 - 10 mg PO DAILY PRN bp 10/10/24 10/10/24 lithium carbonate 300 mg capsule 300 mg PO BID 10/10/24 10/10/24 mirtazapine 15 mg tablet 15 mg PO BEDTIME PRN Sleep 10/10/24 10/10/24 potassium chloride 10 mEq 10 meq PO DAILY 10/10/24 10/10/24 tablet,extended release(part/cryst) Previous Rx's ?Medication ?Instructions ?Recorded aspirin 81 mg tablet,delayed 81 mg PO DAILY #90 tabs 05/05/22 release (Adult Low Dose Aspirin) furosemide 40 mg tablet 40 mg PO DAILY 30 days #30 tabs 09/11/24 furosemide 40 mg tablet (Lasix) 40 mg PO BID 5 days #10 tabs 10/10/24 Allergies Allergy/AdvReac Type Severity Reaction Status Date / Time No Known Allergies Allergy Verified 09/23/24 16:48 Review of Systems General: Reports: 10 or more systems reviewed and unremarkable except in HPI and below PFSH ED PFSH: Medical History (Updated 10/10/24 @ 13:29 by Manny Hudson MD) Anxiety Osteoporosis without pathological fracture Bipolar disorder, unspecified Benign prostatic hyperplasia without lower urinary tract symptoms Gastritis, unspecified, without bleeding Gastrointestinal stromal tumor of stomach Low back pain, unspecified Umbilical hernia without obstruction or gangrene Hyperparathyroidism s/p parathyroid tumor removal Depression Bipolar 1 disorder Gastrointestinal stromal tumor s/p surgery in 2020 in [place]. No chemo or radiation needed. Hypertension Ischemic cardiomyopathy CAD (coronary artery disease) s/p 1 stent in 2016 Cardiac resynchronization therapy defibrillator (STOVE BOTTOM WORKER-D) in place Hyperlipidemia, unspecified Surgical History History of lumbar laminectomy in 2013 in [place] Abdominal aortic aneurysm (AAA) without rupture s/p surgery in 2018 or 2019 in [place] Family History Father Heart attack Social History Smoking and tobacco/nicotine status: former use of tobacco/nicotine (2022) Alcohol intake: never Substance/Drug Use: current Physical Exam Const: COMMON NORMALS: no acute distress, patient oriented x3, alert and well nourished GENERAL APPEARANCE: well kempt, well developed and ill appearing (Chronically) NUTRITIONAL APPEARANCE: obese HENMT: COMMON NORMALS: normocephalic, atraumatic, external ears normal and moist oral mucous membranes HEAD & SCALP: normocephalic and atraumatic EXTERNAL EAR: Yes external ears normal Eye: COMMON NORMALS: Equal, round and reactive pupils present, EOMs intact bilaterally and conjunctivae normal CONJUNCTIVA: Yes conjunctivae normal PUPIL: Yes Equal, round and reactive pupils present Neck/C-Spine: COMMON NORMALS: full ROM, no lymphadenopathy and supple Chest: CHEST: Yes Symmetrical chest wall rise and No Surgical scars present (Chest) Resp: COMMON NORMALS: No retractions EFFORT & INSPECTION: Yes symmetric chest movement, Yes tachypneic (Mild 22), No respiratory distress, Yes labored (Mildly), No retractions and Yes uses accessory muscles AUSCULTATION: rales bilateral in the lower lung aguayo Cardio: COMMON NORMALS: regular rate, regular rhythm, S1 normal heart sound present, S2 normal heart sound present, No gallops present (Cardio), No clicks present (Cardio), No murmurs present (Cardio) and No rub (Cardio) JUGULAR VENOUS DISTENTION: JVD RATE: regular rate RHYTHM: regular rhythm HEART SOUNDS: S1 normal heart sound present, S2 normal heart sound present and no murmurs PERIPHERAL PULSES: other (Radial pulses 2+ and symmetric) GI: COMMON NORMALS: Soft to palpation, non-tender and no masses INSPECTION: No abdominal distension PALPATION: Yes Soft to palpation, No Guarding due to palpation present (GI) and No Rebound tenderness present : COMMON NORMALS: Yes no CVA tenderness BLADDER/KIDNEY EXAM: Yes no CVA tenderness Back/Pelvis: COMMON NORMALS: no CVA tenderness Extremity: COMMON NORMALS: normal to inspection, full ROM and capillary refill normal NARRATIVE EXTREMITY EXAM: Bilateral lower EXTR edema 2+ Neuro: COMMON NORMALS: patient oriented x3 SENSORIUM/ORIENTATION: Yes alert Psych: APPEARANCE: Yes well kempt Skin: COMMON NORMALS: no rashes or lesions noted, no wounds, turgor normal and no jaundice GENERAL SKIN EXAM: no rashes or lesions noted and turgor normal Course Reevaluation(s): Reevaluation #1: Patient much improved, satting 100% on 3 L which is his home O2 amount. I reviewed labs and results with patient and phone number at bedside. They are agreeable with plan. Offered observation admission with IV Lasix versus going home with increased dose of p.o. Lasix. They elect to go home. Patient will be discharged. Time: 13:28 Vital Signs: Vital signs: Vital Signs Temperature 98.3 F 10/10/24 10:16 Pulse Rate 61 10/10/24 12:00 Respiratory Rate 24 H 10/10/24 11:51 Blood Pressure 140/77 10/10/24 11:51 Pulse Oximetry 98 10/10/24 12:00 Oxygen Delivery Me thod Nasal Cannula 10/10/24 12:00 Oxygen Flow Rate 2.5 10/10/24 11:51 MDM - SOB/Dyspnea Medical Decision Making Patient with temporary hypoxia at home, improved nasal cannula. He is on nasal cannula and after ABG was cut back down to baseline settings. He is pCO2 is elevated but it is his baseline as his pH is 7.4 and he is well compensated. Patient wears home BiPAP when sleeping. He has what is read as a left lower lobe consolidation but appears to be more edema on my interpretation of the chest x-ray. Give a Pro-Kye pending. However after discussion with patient and family. Will increase his Lasix to twice a day for the next 5 days and then go back to once daily. Strict return precautions have been discussed with patient and family and advised if things or not improving or suddenly worsen to immediately return to the ER. Differential Diagnosis Likely acute exacerbation of chronic obstructive airways disease, congestive heart failure, community acquired pneumonia and pulmonary embolism Medical Records I reviewed the patient's medical records. Lab Data I reviewed the patient's lab results. 10/10/24 11:08 10/10/24 11:08 Labs/Radiology: Radiology Impressions Chest X-Ray 10/10/24 10:55 IMPRESSION: 1. Consolidation of the LEFT lower lobe with LEFT basal pleural effusion. 2. Marked cardiac enlargement with pulmonary vascular engorgement. Laboratory Results WBC 10.05 10^3/uL (3.29-11.43) 10/10/24 11:08 RBC 3.60 10^6/uL (3.85-5.65) L 10/10/24 11:08 Hgb 10.80 g/dL (11.27-16.99) L 10/10/24 11:08 Hct 36.0 % (37-53) L 10/10/24 11:08 MCV 100.0 fl (82-101) 10/10/24 11:08 MCH 30.0 pg (27-33) 10/10/24 11:08 MCHC 30.0 g/dL (30-55) 10/10/24 11:08 RDW 14.4 % (12.1-15.1) 10/10/24 11:08 Plt Count 227 10^3/cmm (157-399) 10/10/24 11:08 MPV 11.6 fL (7.4-10.4) H 10/10/24 11:08 Neut % (Auto) 77.3 % 10/10/24 11:08 Lymph % (Auto) 13.6 % 10/10/24 11:08 [place] % (Auto) 8.2 % 10/10/24 11:08 Eos % (Auto) 0.0 % 10/10/24 11:08 Baso % (Auto) 0.5 % 10/10/24 11:08 Neut # (Auto) 7.77 10^3/uL (1.8-7.7) H 10/10/24 11:08 Lymph # (Auto) 1.4 10^3/uL (0.8-4.8) 10/10/24 11:08 [place] # (Auto) 0.8 10^3/uL (0.2-0.9) 10/10/24 11:08 Eos # (Auto) 0.0 10^3/uL (0.0-0.8) 10/10/24 11:08 Baso # (Auto) 0.1 10^3/uL (0.0-0.1) 10/10/24 11:08 Nucleated RBC % (auto) 0 % 10/10/24 11:08 Nucleated RBCs # 0.0 /100WBC 10/10/24 11:08 Specimen Type Arterial 10/10/24 10:53 Sample Site Radial, left 10/10/24 10:53 ABG pH 7.41 (7.35-7.45) 10/10/24 10:53 ABG pCO2 71.9 mmHg (35-45) H* 10/10/24 10:53 ABG pO2 96.7 mmHg (80.0-100.0) 10/10/24 10:53 ABG HCO3 45.8 mmol/L (22-26) H 10/10/24 10:53 ABG Base Excess 18.0 mmol/L (-2.0-2.0) H 10/10/24 10:53 Obed Test Pos 10/10/24 10:53 Hematocrit 33.8 % (42-52) L 10/10/24 10:53 Hgb O2 Saturation 95.9 % (95-100) 10/10/24 10:53 Carboxyhemoglobin 1.8 %THgb (0.4-20.1) 10/10/24 10:53 Methemoglobin 0.3 % (0.4-1.5) L 10/10/24 10:53 Total Hemoglobin 11.0 g/dL (14-18) L 10/10/24 10:53 O2 Delivery Device Nc 10/10/24 10:53 O2 Liters/Min 4.0 % 10/10/24 10:53 Tankroom Worker ID [place] 10/10/24 10:53 Sodium 140 mmol/L (136-145) 10/10/24 11:08 Potassium 3.4 mmol/L (3.5-5.1) L 10/10/24 11:08 Chloride 93 mmol/L (98-107) L 10/10/24 11:08 Carbon Dioxide 42 mmol/L (22-29) H* 10/10/24 11:08 Anion Gap 8.4 (5-19) 10/10/24 11:08 BUN 9 mg/dL (8-23) 10/10/24 11:08 Creatinine 0.9 mg/dL (0.7-1.2) 10/10/24 11:08 GFR Calculation Not Reportable 10/10/24 11:08 Glucose 196 mg/dL (65-115) H 10/10/24 11:08 Calculated Osmolality 294 mOsm/kg (285-295) 10/10/24 11:08 Lactic Acid 0.9 mmol/L (0.5-2.2) 10/10/24 11:08 Calcium 11.0 mg/dL (8.5-10.5) H 10/10/24 11:08 Magnesium 1.3 mg/dL (1.7-2.3) L 10/10/24 11:08 Total Bilirubin 0.5 mg/dL (0.15-1.2) 10/10/24 11:08 AST 14 U/L (0-40) 10/10/24 11:08 ALT 9 U/L (0-41) 10/10/24 11:08 Alkaline Phosphatase 143 U/L (40-130) H 10/10/24 11:08 NT-Pro-B Natriuret Pep 3878 pg/mL (0-125) H 10/10/24 11:08 Total Protein 6.4 g/dL (6.6-8.7) L 10/10/24 11:08 Albumin 3.2 g/dL (3.5-5.2) L 10/10/24 11:08 Globulin 3.2 g/dL (1.3-4.6) 10/10/24 11:08 All radiology interpretation(s) finalized by discharge ED provider radiology interpretation(s): see [facility] Discharge Plan Discharge Patient Disposition: Home Clinical Impression: Acute on chronic congestive heart failure Condition: Stable Prescriptions: New furosemide [Lasix] 40 mg tablet 40 mg PO BID 5 Days Qty: 10 0RF No Action lamotrigine 200 mg tablet 200 mg PO BEDTIME pantoprazole 40 mg tablet,delayed release (DR/EC) 40 mg PO QAM gabapentin 300 mg capsule 900 mg PO BEDTIME aspirin [Adult Low Dose Aspirin] 81 mg tablet,delayed release (DR/EC) 81 mg PO DAILY Qty: 90 3RF mecobalamin (vitamin B12) 1,000 mcg tablet,chewable 1,000 mcg PO DAILY melatonin 10 mg capsule 10 mg PO BEDTIME methocarbamol 500 mg Tablet 500 mg PO BEDTIME PRN (Reason: muscle spasms) guaifenesin [Mucinex] 600 mg Tablet Extended Release 12hr 600 mg PO BID PRN (Reason: Congestion) acetaminophen [Tylenol Extra Strength] 500 mg Tablet 1,000 mg PO Q6H PRN (Reason: Fever Or Pain) quetiapine 100 mg Tablet 50 mg PO BEDTIME PRN (Reason: DEPRESSION) furosemide 40 mg tablet 40 mg PO DAILY 30 Days Qty: 30 0RF fluticasone propion-salmeterol [Advair Diskus] 250-50 mcg/dose Blister With Device 1 inh INHALATION BID montelukast [Singulair] 10 mg Tablet 10 mg PO QPM Stiolto Respimat 2.5-2.5 mcg/actuation mist 2 inh INHALATION DAILY albuterol sulfate 90 mcg/actuation HFA aerosol inhaler 2 puff INHALATION QID PRN (Reason: copd) atorvastatin 80 mg Tablet 80 mg PO QPM cyanocobalamin (vitamin B-12) 1,000 mcg Tablet 1,000 mcg PO DAILY mirtazapine 15 mg tablet 15 mg PO BEDTIME PRN (Reason: Sleep) potassium chloride 10 mEq tablet,ER particles/crystals 10 meq PO DAILY lisinopril 10 mg tablet 5 - 10 mg PO DAILY PRN (Reason: bp) cholecalciferol (vitamin D3) [Vitamin D3] 50 mcg (2,000 unit) Tablet 100 mcg PO DAILY lithium carbonate 300 mg capsule 300 mg PO BID Discharge Orders: Discharge ED (Routine); Ordered 10/10/24 Ordered By: Manny Hudson Referrals: Chanell Lee MD [Primary Care Provider, Family Practice] Discharge Diet: Usual diet Discharge Activity: Resume usual activity and Cpap/Bipap as instructed Patient Instructions: Heart Failure (ED) Print Language: Kyrgyz Coding Level of Care Code ED Member Services Coordinator for [place]
[2024-10-10 11:43] LABS: Lactic Sepsis W/Reflex 0.9 mmol/L (0.5-2.2)
[2024-10-10 11:56] LABS: Alanine Aminotransferase 9 U/L (0-41); Albumin Level 3.2 g/dL (3.5-5.2); Alkaline Phosphatase 143 U/L (40-130); Anion Gap 8.4 (5-19); Aspartate Amino Transferase 14 U/L (0-40); Blood Urea Nitrogen 9 mg/dL (8-23); Chloride 93 mmol/L (98-107); Creatinine Clr Calc Pharmacy 82.3391; Globulin 3.2 g/dL (1.3-4.6); Glucose 196 mg/dL (65-115); Magnesium 1.3 mg/dL (1.7-2.3); NT Pro B Type Natriuretic Pept 3878 pg/mL (0-125); Osmolality Calculated 294 mOsm/kg (285-295); Potassium 3.4 mmol/L (3.5-5.1); Sodium 140 mmol/L (136-145); Total Bilirubin 0.5 mg/dL (0.15-1.2); Total Protein 6.4 g/dL (6.6-8.7)
[2024-10-10] MEDS: FUROsemide 10 mg/mL SDV 4mL 40 MG IVP (11:56)
[2024-10-10 12:04] LABS: Carbon Dioxide 42 mmol/L (22-29)
--- NOTE | 2024-10-10 12:18 | PC.NURSE ---
pt pace maker interrogated at 1212.
[2024-10-10] MEDS: magnesium sulfate premix 4 GM/100 ML PREMIX IV (13:16)
[2024-10-10 13:48] LABS: Procalcitonin 0.12 ng/mL (0-0.5)
== END 2024-10-10 16:07 | disposition home or self-care (01) ==
PROVIDERS: Emergency Provider Emergency Medicine; PCP Family Medicine
DX: I50.9 Heart failure, unspecified (principal); I25.10 Atherosclerotic heart disease of native coronary artery without angina pectoris; E78.5 Hyperlipidemia, unspecified; Z87.891 Personal history of nicotine dependence; Z79.82 Long term (current) use of aspirin
CPT/HCPCS: 36415; 36600; 71045; 80053; 82805; 83605; 83735; 83880; 84145; 85025; 93005; 96365; 96366; 96375; 99285; J1940; J3475

== ENCOUNTER 2024-10-19 08:03 | Day surgery (SDC) | payer OTHER, SELFPAY ==
[2024-10-19] VITALS (25 sets, daily range): BP systolic 74–123; BP diastolic 52–83; PULSE 102–157; RESP 14–60; TEMP 36.9; O2SAT 60–100; BMI 33.4
[2024-10-19] MEDS: etomidate 2 mg/mL INJ SDV 10 mL 10 MG IVP ×2 (08:06→08:25)
--- NOTE | 2024-10-19 08:12 | XRR_ITS ---
PROCEDURE INFORMATION: Exam: XR Chest Exam date and time: 10/19/2024 8:23 AM Age: 69 years old Clinical indication: Chest pressure; Prior surgery; Surgery date: 6+ months; Surgery type: Pacer; Chesst pain; Tachycardia; Exxternal defib pads in place, unable to remove for cxr TECHNIQUE: Imaging protocol: Radiologic exam of the chest. Views: 1 view. COMPARISON: CR XR chest 1V portable [id number] 10/10/2024 11:07 AM FINDINGS: Tubes, catheters and devices: A defibrillator device is present, and its leads are in appropriate position. Lungs: Left lower lobe consolidation/collapse. Pleural spaces: Moderate left pleural effusion. Heart/Mediastinum: The heart is enlarged. Bones/joints: Mild degenerative disease of bilateral acromioclavicular joints. There are mild degenerative changes of the glenohumeral joint. The thoracic spine demonstrates mild degenerative changes at multiple levels. XR/XR chest 1V portable [id number] IMPRESSION: Stable left pleural effusion with left lower lobe consolidation/collapse.
--- NOTE | 2024-10-19 08:13 | ECG_ITS ---
[facility] Pat Name: Jim Carney Department: Room: Gender: Male It Service Delivery Manager: : 1955 Requested By: Renato Jefferson Order Number: [id number] Reading MD: ABIOLA BATISTA Measurements Intervals [place] Rate: 104 P: 46 VT: 155 QRS: 259 QRSD: 198 T: 88 QT: 413 QTc: 544 Interpretive Statements ELECTRONIC VENTRICULAR PACEMAKER ABNORMAL RHYTHM ECG Compared to ECG 10/10/2024 10:29:54 ST (T wave) deviation no longer present Myocardial infarct finding no longer present Electronically Signed On 10-21-2024 19:06:37 CDT by ABIOLA BATISTA [id number]
[2024-10-19 08:22] LABS: Basophils # 0.1 10^3/uL (0.0-0.1); Basophils % 0.8 %; Eosinophils % 0.1 %; Hematocrit 38.1 % (37-53); Lymphocytes # 1.7 10^3/uL (0.8-4.8); Lymphocytes % 12.5 %; Mean Corpuscular HGB Conc 29.7 g/dL (30-55); Mean Corpuscular Hemoglobin 29.5 pg (27-33); Mean Corpuscular Volume 99.5 fl (82-101); Mean Platelet Volume 10.4 fL (7.4-10.4); Monocytes # 0.9 10^3/uL (0.2-0.9); Monocytes % 6.5 %; Neutrophils # 10.83 10^3/uL (1.8-7.7); Neutrophils % 79.5 %; Nucleated Red Blood Cells % 0 %; Platelet Count 288 10^3/cmm (157-399); Red Blood Count 3.83 10^6/uL (3.85-5.65); Red Cell Distribution Width 14.6 % (12.1-15.1); White Blood Count 13.63 10^3/uL (3.29-11.43)
[2024-10-19 08:38] LABS: INR 0.88 (0.8-1.2)
--- NOTE | 2024-10-19 08:41 | PC.NURSE ---
pt arrives via [facility] in [place]; Dr. Jefferson at bedside @0806: 10mg Etomidate administered per Dr. Jefferson @0808: [place]; defibrillator shock administered @120 Joules @0823: Amiodorone gtt started @0823: pt's rhythm back to [place] @0824: 10mg Etomidate administered per Dr. Jefferson @0824: [place]; defibrillator shock administered @200 Joules @0825: 100mg Lidocaine administered @0825: [place]; defibrillator shock administered @200 Joules @0826: [place]; defibrillator shock administered @200 Joules @0827: [place]; defibrillator shock administered @200 Joules @0830: [place]; defibrillator shock administered @200 Joules @0835: [place]; defibrillator shock administered @200 Joules
--- NOTE | 2024-10-19 08:44 | W.ED.CHESTPA ---
HPI - Chest Pain General: Chief Complaint: Chest Pain Stated Complaint: chest pain Time Seen by Provider: 10/19/24 08:12 Source: patient Mode of arrival: ambulatory Limitations: no limitations History of Present Illness: 69-year-old male history of CHF states he woke up this morning having chest pressure he states his heart rate was elevated as well. Patient brought in by EMS appears to be in V. tach he is given amiodarone and route with no change in his rhythm. States the pain is a pressure pain he rates a 3 out of 10 he wears oxygen at baseline denies any increasing shortness of breath. Associated symptoms: Deny abdominal pain, dyspnea, fever(s), nausea or vomiting Related Data Home Medications ?Medication ?Instructions ?Recorded ?Confirmed gabapentin 300 mg capsule 900 mg PO BEDTIME 05/05/22 10/19/24 lamotrigine 200 mg tablet 200 mg PO BEDTIME 05/05/22 10/19/24 pantoprazole 40 mg tablet,delayed 40 mg PO QAM 05/05/22 10/19/24 release guaifenesin 600 mg tablet, 600 mg PO BID PRN Congestion 05/21/24 10/19/24 extended release 12 hr (Mucinex) methocarbamol 500 mg tablet 500 mg PO BEDTIME PRN muscle spasms 05/21/24 10/19/24 mecobalamin (vitamin B12) 1,000 1,000 mcg PO DAILY 06/18/24 10/19/24 mcg chewable tablet melatonin 10 mg capsule 10 mg PO BEDTIME 06/18/24 10/19/24 acetaminophen 500 mg tablet 1,000 mg PO Q6H PRN Fever Or Pain 06/24/24 10/19/24 (Tylenol Extra Strength) quetiapine 100 mg tablet 50 mg PO BEDTIME PRN DEPRESSION 06/24/24 10/19/24 albuterol sulfate 90 mcg/actuation 2 puff inhalation QID PRN copd 08/21/24 10/19/24 aerosol inhaler atorvastatin 80 mg tablet 80 mg PO QPM 08/21/24 10/19/24 cyanocobalamin (vitamin B-12) 1,000 mcg PO DAILY 08/21/24 10/19/24 1,000 mcg tablet fluticasone 250 mcg-salmeterol 50 1 inh inhalation BID 08/21/24 10/19/24 mcg/dose blistr powdr for inhalation (Advair Diskus) montelukast 10 mg tablet 10 mg PO QPM 08/21/24 10/19/24 (Singulair) tiotropium 2.5 mcg-olodaterol 2.5 2 inh inhalation DAILY 08/21/24 10/19/24 mcg/actuation mist for inhalation (Stiolto Respimat) cholecalciferol (vitamin D3) 50 100 mcg PO DAILY 10/10/24 10/19/24 mcg (2,000 unit) tablet (Vitamin D3) lisinopril 10 mg tablet 5 - 10 mg PO DAILY PRN bp 10/10/24 10/19/24 lithium carbonate 300 mg capsule 300 mg PO BID 10/10/24 10/19/24 mirtazapine 15 mg tablet 15 mg PO BEDTIME PRN Sleep 10/10/24 10/19/24 potassium chloride 10 mEq 10 meq PO DAILY 10/10/24 10/19/24 tablet,extended release(part/cryst) olanzapine 10 mg tablet 10 mg PO BEDTIME 10/19/24 10/19/24 Previous Rx's ?Medication ?Instructions ?Recorded aspirin 81 mg tablet,delayed 81 mg PO DAILY #90 tabs 05/05/22 release (Adult Low Dose Aspirin) furosemide 40 mg tablet 40 mg PO DAILY 30 days #30 tabs 09/11/24 Allergies Allergy/AdvReac Type Severity Reaction Status Date / Time No Known Allergies Allergy Verified 09/23/24 16:48 Review of Systems Const: Denies: fever(s), chills, body aches or change in appetite ENMT: Denies: throat pain or dental pain Card: Reports: chest pain Resp: Denies: dyspnea GI: Denies: abdominal pain, nausea, vomiting or diarrhea Musc: Denies: neck pain or back pain Skin/Breast: Denies: rash Neuro: Denies: headache(s) PFSH ED PFSH: Medical History Anxiety Osteoporosis without pathological fracture Bipolar disorder, unspecified Benign prostatic hyperplasia without lower urinary tract symptoms Gastritis, unspecified, without bleeding Gastrointestinal stromal tumor of stomach Low back pain, unspecified Umbilical hernia without obstruction or gangrene Hyperparathyroidism s/p parathyroid tumor removal Depression Bipolar 1 disorder Gastrointestinal stromal tumor s/p surgery in 2019 in [place]. No chemo or radiation needed. 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 Hyperlipidemia, unspecified Surgical History History of lumbar laminectomy in 2013 in [place] Abdominal aortic aneurysm (AAA) without rupture s/p surgery in 2018 or 2019 in [place] Family History Father Heart attack Social History Smoking and tobacco/nicotine status: former use of tobacco/nicotine (2022) Alcohol intake: never Substance/Drug Use: current Physical Exam Const: COMMON NORMALS: patient oriented x3 GENERAL APPEARANCE: in distress HENMT: COMMON NORMALS: normocephalic and atraumatic HEAD & SCALP: normocephalic and atraumatic Eye: COMMON NORMALS: conjunctivae normal CONJUNCTIVA: Yes conjunctivae normal Neck/C-Spine: COMMON NORMALS: full ROM and supple Chest: COMMONS NORMALS: normal inspection of the chest Resp: COMMON NORMALS: normal respiratory effort, No retractions, No use of accessory muscles and clear to auscultation bilaterally AUSCULTATION: clear to auscultation bilaterally Cardio: COMMON NORMALS: No murmurs present (Cardio) RATE: tachycardic GI: COMMON NORMALS: Normal to inspection, nondistended, normoactive bowel sounds present, Soft to palpation, non-tender and no masses PALPATION: Yes Soft to palpation Extremity: COMMON NORMALS: normal to inspection and full ROM Neuro: COMMON NORMALS: patient oriented x3, moves all extremities and no focal motor deficits Psych: COMMON NORMALS: mental status grossly normal, Normal thought process present and cooperative THOUGHT PROCESS: Normal thought process present Skin: COMMON NORMALS: no rashes or lesions noted and no wounds GENERAL SKIN EXAM: no rashes or lesions noted Procedures Intubation Time out performed: Yes sedative: Etomidate Mg Given: 20 paralytic: Vecuronium Mg Given: 10 Laryngoscope: Angelica ET Tube Size: 8 ET Tube Uncuffed: Yes Tube Secured Depth (cm): 26 Tube Secured Location: teeth Tube Placement Confirmation: visualized tube passing through cords Patient Tolerated Procedure: well Intubation Complications: none Course Vital Signs: Vital signs: Vital Signs Temperature 98.4 F 10/19/24 08:15 Pulse Rate 157 H 10/19/24 08:15 Respiratory Rate 14 10/19/24 09:35 Blood Pressure 96/73 10/19/24 08:15 Pulse Oximetry 93 10/19/24 08:15 Oxygen Delivery Me thod Nasal Cannula 10/19/24 08:15 Oxygen Flow Rate 4 10/19/24 08:15 Fraction of Inspir ed Oxygen 60 10/19/24 09:35 MDM - Chest Pain Medical Decision Making Patient presents here with sustained V. tach did defibrillated multiple times he was given lidocaine amiodarone and amiodarone drip spud driller came and seen patient and we did call the Distributor Cleaner team and he was going to go to the catheter did intubate him he then went into cardiac arrest with V-fib he ended up expiring. Medical Records I reviewed the patient's medical records. Lab Data I reviewed the patient's lab results. 10/19/24 08:16 10/19/24 08:16 Radiology Impressions Chest X-Ray 10/19/24 09:33 IMPRESSION: 1. Post intubation with tip of the ET tube 5.5 cm proximal to the severo. 2. Decrease in the left lower lobe consolidation. Laboratory Results WBC 13.63 10^3/uL (3.29-11.43) H 10/19/24 08:16 RBC 3.83 10^6/uL (3.85-5.65) L 10/19/24 08:16 Hgb 11.30 g/dL (11.27-16.99) 10/19/24 08:16 Hct 38.1 % (37-53) 10/19/24 08:16 MCV 99.5 fl (82-101) 10/19/24 08:16 MCH 29.5 pg (27-33) 10/19/24 08:16 MCHC 29.7 g/dL (30-55) L 10/19/24 08:16 RDW 14.6 % (12.1-15.1) 10/19/24 08:16 Plt Count 288 10^3/cmm (157-399) 10/19/24 08:16 MPV 10.4 fL (7.4-10.4) 10/19/24 08:16 Neut % (Auto) 79.5 % 10/19/24 08:16 Lymph % (Auto) 12.5 % 10/19/24 08:16 Barber % (Auto) 6.5 % 10/19/24 08:16 Eos % (Auto) 0.1 % 10/19/24 08:16 Baso % (Auto) 0.8 % 10/19/24 08:16 Neut # (Auto) 10.83 10^3/uL (1.8-7.7) H 10/19/24 08:16 Lymph # (Auto) 1.7 10^3/uL (0.8-4.8) 10/19/24 08:16 Barber # (Auto) 0.9 10^3/uL (0.2-0.9) 10/19/24 08:16 Eos # (Auto) 0.0 10^3/uL (0.0-0.8) 10/19/24 08:16 Baso # (Auto) 0.1 10^3/uL (0.0-0.1) 10/19/24 08:16 Nucleated RBC % (auto) 0 % 10/19/24 08:16 Nucleated RBCs # 0.0 /100WBC 10/19/24 08:16 PT 12.60 SECONDS (12.1-14.9) 10/19/24 08:16 INR 0.88 (0.8-1.2) 10/19/24 08:16 Sodium 141 mmol/L (136-145) 10/19/24 08:16 Potassium 4.1 mmol/L (3.5-5.1) 10/19/24 08:16 Chloride 94 mmol/L (98-107) L 10/19/24 08:16 Carbon Dioxide 39 mmol/L (22-29) H 10/19/24 08:16 Anion Gap 12.1 (5-19) 10/19/24 08:16 BUN 14 mg/dL (8-23) 10/19/24 08:16 Creatinine 0.9 mg/dL (0.7-1.2) 10/19/24 08:16 GFR Calculation Not Reportable 10/19/24 08:16 Glucose 224 mg/dL (65-115) H 10/19/24 08:16 Calculated Osmolality 299 mOsm/kg (285-295) H 10/19/24 08:16 Calcium 10.5 mg/dL (8.5-10.5) 10/19/24 08:16 Total Bilirubin 0.4 mg/dL (0.15-1.2) 10/19/24 08:16 AST 16 U/L (0-40) 10/19/24 08:16 ALT 9 U/L (0-41) 10/19/24 08:16 Alkaline Phosphatase 140 U/L (40-130) H 10/19/24 08:16 Troponin T Baseline 181 ng/L (0-15) H* 10/19/24 08:16 NT-Pro-B Natriuret Pep 3061 pg/mL (0-125) H 10/19/24 08:16 Total Protein 6.0 g/dL (6.6-8.7) L 10/19/24 08:16 Albumin 3.6 g/dL (3.5-5.2) 10/19/24 08:16 Globulin 2.4 g/dL (1.3-4.6) 10/19/24 08:16 All radiology interpretation(s) finalized by discharge Critical Care Time Critical Care Time: Critical Care Time: Yes Total Critical Care Time: 55 Attestation: The high probability of a clinically significant, sudden or life threatening deterioration of the patient's cv system(s) required my full and direct attention, intervention and personal management. The critical care time is as shown. 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
[2024-10-19 08:49] LABS: Troponin(5th) Baseline 181 ng/L (0-15)
[2024-10-19 08:53] LABS: Alanine Aminotransferase 9 U/L (0-41); Albumin Level 3.6 g/dL (3.5-5.2); Alkaline Phosphatase 140 U/L (40-130); Blood Urea Nitrogen 14 mg/dL (8-23); Calcium 10.5 mg/dL (8.5-10.5); Carbon Dioxide 39 mmol/L (22-29); Chloride 94 mmol/L (98-107); Creatinine Clr Calc Pharmacy 86.2031; Globulin 2.4 g/dL (1.3-4.6); Glucose 224 mg/dL (65-115); NT Pro B Type Natriuretic Pept 3061 pg/mL (0-125); Osmolality Calculated 299 mOsm/kg (285-295); Sodium 141 mmol/L (136-145); Total Bilirubin 0.4 mg/dL (0.15-1.2)
[2024-10-19 09:00] LABS: Anion Gap 12.1 (5-19); Aspartate Amino Transferase 16 U/L (0-40); Potassium 4.1 mmol/L (3.5-5.1)
--- NOTE | 2024-10-19 09:02 | PM.CONSULT ---
Providers/Reason For Consult Consulting Physician/Specialty*: Remington Pringle MD Reason for Consult*: Incessant ventricular tachycardia requiring multiple shocks Acute decompensated systolic heart failure Hypotension Shock History of ICD permanent pacemaker History of severely depressed ejection fraction 25 to 30% History of cardiomyopathy Requesting Physician: Dr. 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 Patient presented with worsening of shortness of breath palpitation and tachycardia going on for the last couple of days at home. Twelve-lead EKG showed paced rhythm with right bundle branch block no ST elevation, troponin was elevated, in the ER he was noted to be in Aleksey ventricular rhythm with high suspicion of ventricular tachycardia and slow VT. Patient was started on amiodarone and defibrillated with multiple shock by ER physician despite of that patient stayed in ventricular tachycardia. I was informed, we discussed and decided to add lidocaine, IV Lasix and if needed pressors I saw patient in the ER and decided to proceed with angiogram given patient in incessant ventricular tachycardia and heart failure we decided to intubate for hemodynamic stability and developing. During the process of intubation I was informed that patient had V-fib arrest he was again defibrillated and CPR was started, patient was treated as per ACLS protocol please see details in ER physician note. I had detailed discussion with family including his son and as we were continuing CPR. They were kept informed and agreed to the treatment. Nearly more than 20 minutes of CPR we were not able to revive the patient and he was pronounced in the ER. Patient family was again informed by myself his and son and they understood and were satisfied with effort. Review of Systems Const: Denies: fever(s), chills, body aches or change in appetite Eyes: Denies: photophobia ENMT: Denies: throat pain, enlarged tonsils or dental pain Card: Reports: chest pain Resp: Denies: dyspnea GI: Denies: abdominal pain, nausea, vomiting or diarrhea Musc: Denies: neck pain, back pain or joint warmth Skin/Breast: Denies: rash Neuro: Denies: headache(s) All/Imm: Denies: acute wheezing Medications/Allergies Home Medications ?Medication ?Instructions ?Recorded ?Confirmed ?Last Taken ?Type aspirin 81 mg tablet,delayed 81 mg PO DAILY #90 tabs 05/05/22 10/19/24 06/22/24 19:00 Rx release (Adult Low Dose Aspirin) gabapentin 300 mg capsule 900 mg PO BEDTIME 05/05/22 10/19/24 10/09/24 History lamotrigine 200 mg tablet 200 mg PO BEDTIME 05/05/22 10/19/24 10/09/24 History pantoprazole 40 mg tablet,delayed 40 mg PO QAM 05/05/22 10/19/24 10/10/24 History release guaifenesin 600 mg tablet, 600 mg PO BID PRN Congestion 05/21/24 10/19/24 05/21/24 History extended release 12 hr (Mucinex) methocarbamol 500 mg tablet 500 mg PO BEDTIME PRN muscle spasms 05/21/24 10/19/24 10/09/24 History mecobalamin (vitamin B12) 1,000 1,000 mcg PO DAILY 06/18/24 10/19/24 10/09/24 History mcg chewable tablet melatonin 10 mg capsule 10 mg PO BEDTIME 06/18/24 10/19/24 10/09/24 History acetaminophen 500 mg tablet 1,000 mg PO Q6H PRN Fever Or Pain 06/24/24 10/19/24 Unknown History (Tylenol Extra Strength) quetiapine 100 mg tablet 50 mg PO BEDTIME PRN DEPRESSION 06/24/24 10/19/24 10/09/24 History albuterol sulfate 90 mcg/actuation 2 puff inhalation QID PRN copd 08/21/24 10/19/24 Unknown History aerosol inhaler atorvastatin 80 mg tablet 80 mg PO QPM 08/21/24 10/19/24 10/09/24 History cyanocobalamin (vitamin B-12) 1,000 mcg PO DAILY 08/21/24 10/19/24 10/09/24 History 1,000 mcg tablet fluticasone 250 mcg-salmeterol 50 1 inh inhalation BID 08/21/24 10/19/24 10/10/24 History mcg/dose blistr powdr for inhalation (Advair Diskus) montelukast 10 mg tablet 10 mg PO QPM 08/21/24 10/19/24 10/09/24 History (Singulair) tiotropium 2.5 mcg-olodaterol 2.5 2 inh inhalation DAILY 08/21/24 10/19/24 10/09/24 History mcg/actuation mist for inhalation (Stiolto Respimat) furosemide 40 mg tablet 40 mg PO DAILY 30 days #30 tabs 09/11/24 10/19/24 10/10/24 Rx cholecalciferol (vitamin D3) 50 100 mcg PO DAILY 10/10/24 10/19/24 10/09/24 History mcg (2,000 unit) tablet (Vitamin D3) lisinopril 10 mg tablet 5 - 10 mg PO DAILY PRN bp 10/10/24 10/19/24 10/10/24 History lithium carbonate 300 mg capsule 300 mg PO BID 10/10/24 10/19/24 10/09/24 History mirtazapine 15 mg tablet 15 mg PO BEDTIME PRN Sleep 10/10/24 10/19/24 10/09/24 History potassium chloride 10 mEq 10 meq PO DAILY 10/10/24 10/19/24 10/09/24 History tablet,extended release(part/cryst) olanzapine 10 mg tablet 10 mg PO BEDTIME 10/19/24 10/19/24 Unknown History Allergies Allergy/AdvReac Type Severity Reaction Status Date / Time No Known Allergies Allergy Verified 09/23/24 16:48 PFSH Acute PFSH: Medical History (Updated 10/19/24 @ 12:07 by Remington Pringle MD) Cardiomyopathy Anxiety Osteoporosis without pathological fracture Bipolar disorder, unspecified Benign prostatic hyperplasia without lower urinary tract symptoms Gastritis, unspecified, without bleeding Gastrointestinal stromal tumor of stomach Low back pain, unspecified Umbilical hernia without obstruction or gangrene Hyperparathyroidism s/p parathyroid tumor removal Depression Bipolar 1 disorder Gastrointestinal stromal tumor s/p surgery in 2019 in [place]. No chemo or radiation needed. 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 Hyperlipidemia, unspecified Surgical History History of lumbar laminectomy in 2013 in [place] Abdominal aortic aneurysm (AAA) without rupture s/p surgery in 2018 or 2018 in [place] Family History Father Heart attack Social History Smoking and tobacco/nicotine status: former use of tobacco/nicotine (2022) Alcohol intake: never Substance/Drug Use: current Dietary Habits: Current diet type/program: regular Caffeine: Yes Vitals/I&O/Wt Last Vital Signs Temp 98.4 F 10/19/24 08:15 Pulse 157 H 10/19/24 08:15 Resp 24 H 10/19/24 08:15 BP 96/73 10/19/24 08:15 Pulse Ox 93 10/19/24 08:15 O2 Del Method Nasal Cannula 10/19/24 08:15 O2 Flow Rate 4 10/19/24 08:15 Weight last 48 hrs Weight 220 lb Physical Exam Const: OTHER: GENERAL: Patient is fatigued lethargic but oriented x 2 at the time of my examination HEART: Regular S1 and S2. No murmur, rub or gallop. LUNGS: Decreased breath sounds in generally bilaterally more on left than right CENTRAL NERVOUS SYSTEM: Grossly nonfocal. EXTREMITIES: Lower extremities with 2+ edema bilaterally. Data 10/19/24 08:16 10/19/24 08:16 A&P Assessment and plan (1) Ventricular tachycardia: (2) Cardiac arrest: (3) Heart failure with reduced ejection fraction: (4) Cardiomyopathy: Plan As defined above patient presented with ventricle tachycardia degenerated into V-fib . Multiple shock was delivered amiodarone and lidocaine was started, it was our intention to stabilize patient hemodynamically and take him to the Manufacturing Engineering Technologist however given his history of advanced cardiomyopathy decompensated heart failure with pleural effusion and ventricular arrhythmia tachycardia patient had cardiac arrest in the ER despite of utmost effort and CPR as per ACS protocol patient was not able to be revived into normal rhythm. At the end of 20-minute of CPR patient was pronounced by ER physician. Family was informed and discussed at all time and stages of the CPR. They are in agreement and satisfied it. PDMP PDMP Reviewed: Not Reviewed Consult Attestations Medical Necessity Statement: As above patient was pronounced Coding Level of Care Code Critical Care >/= 30 minutes Diagnoses Ventricular tachycardia I47.20 Cardiac arrest I46.9 Heart failure with reduced ejection fraction I50.20 Cardiomyopathy I42.9
[2024-10-19] MEDS: FUROsemide 10 mg/mL SDV 10mL 80 MG IVP (09:10)
[2024-10-19] MEDS: norepinephrine 4 MG/250 ML BAG 30 MG IV (09:25)
[2024-10-19] MEDS: etomidate 2 mg/mL INJ SDV 10 mL 20 MG IVP (09:30)
--- NOTE | 2024-10-19 09:30 | PC.NURSE ---
INTUBATION: @0930: 20mg Etomidate administered per Dr. Jefferson @0931: 10mg Vecuronium administered per Dr. Jefferson @0932: pt intubated, see respiratory charting
[2024-10-19] MEDS: vecuronium 10 mg SDV IVP (09:31)
--- NOTE | 2024-10-19 09:33 | XRR_ITS ---
PROCEDURE INFORMATION: Exam: XR Chest Exam date and time: 10/19/2024 9:34 AM Age: 69 years old Clinical indication: Device placement; Ett placement (vent status); Ett/of confirmation TECHNIQUE: Imaging protocol: Radiologic exam of the chest. Views: 1 view. COMPARISON: CR (CHEST, ) 10/19/2024 8:23 AM FINDINGS: Tubes, catheters and devices: Post intubation with the tip of the ET tube 5.5 cm proximal to the severo. A defibrillator device is present, and its leads are in appropriate position. Tip of the feeding tube is in the stomach. Lungs: Decrease in the left lower lobe consolidation/collapse. Pleural spaces: Left pleural effusion. Heart/Mediastinum: The heart is enlarged. Bones/joints: Mild degenerative disease of bilateral acromioclavicular joints. There are mild degenerative changes of the glenohumeral joint. Narrowing of the right subacromial distance consistent with chronic rotator cuff disease. XR/XR chest 1V portable 17158 IMPRESSION: 1. Post intubation with tip of the ET tube 5.5 cm proximal to the severo. 2. Decrease in the left lower lobe consolidation.
--- NOTE | 2024-10-19 09:58 | PC.NURSE ---
Addendum entered by Nica Zhong RN 10/19/24 11:41: add: @0958: x1 Epi administered @1001: 200J shock administered @1001: x1 Epi administered Original Note: CODE BLUE: ED physician x2, decorator hand, hospitalist, Closing Manager, x2 ED nurses at bedside @0957: pt's defibrillator shocked pt @0958: Dr. Jefferson at bedside unable to obtain pulse; CPR started. @1001: pulse check, pulseless VFIB; CPR continued; @1004: pulse check, pulseless VFIB; 200J shock administered; CPR continued @1006: I/O obtained in LLE; x1 Epi dose administered, pulse check; pulseless, CPR continued @1007: pulse check, pulseless; CPR continued @1008: 150mg Amiodorone bolus administered @1010: pulse check, pulseless VFIB; TOD 1010
--- NOTE | 2024-10-19 10:15 | PC.NURSE ---
@0957: pts defibrillator started shocking pt, obtained manual pressure of 80s/40s, weak/thready pulse. Dr. Jefferson at bedside @0958: unable to obtain femoral pulse via doppler, CPR started.
--- NOTE | 2024-10-19 10:22 | PC.NURSE ---
pt's watch, necklace, x2 rings given to family.
--- NOTE | 2024-10-19 10:37 | PC.NURSE ---
pt cleaned and prepared for family, lines/tubes still in place. pt family in room @[id number]
--- NOTE | 2024-10-19 11:05 | PC.NURSE ---
MTS notified of cardiac arrest and TOD 1010 AM. Spoke with Demetrius. Reference number [id number]. Waiting for family to decide home.
--- NOTE | 2024-10-19 11:37 | PC.NURSE ---
INTUBATION: @0930: 20mg Etomidate administered per Dr. Jefferson @0931: 10mg Vecuronium administered per Dr. Jefferson @0932: pt intubated, see respiratory charting
--- NOTE | 2024-10-19 11:37 | PC.NURSE ---
PROJECT INSPECTOR CONTACTED [facility] AT 1132 AND HE DID RELEASE THE BODY AT THAT TIME.
--- NOTE | 2024-10-19 12:21 | PC.NURSE ---
ALL IV'S, CATHETERS, IO AND TUBING REMOVED FROM PT. PLACED IN COOLER AT 1220. HAS SIGNED THE BODY TRANSFER FORM BUT HAS NOT DECIDED WHAT HOME TO USE. AWAITING CALL FROM WITH HOME DECISION. STAFF AWARE.
--- NOTE | 2024-10-20 00:08 | PC.NURSE ---
Spoke with [facility] at this time. more information was given and we are still to hold the body in the morgue until released. [facility] and [facility] are still in the process of contacting the spouse.
--- NOTE | 2024-10-20 03:33 | PC.NURSE ---
Pt was picked up by [facility] team) by Claude at this time.
== END 2024-10-19 09:21 ==
LOC: ER 09:17 → CCL 09:22
PROVIDERS: Emergency Provider Emergency Medicine; PCP Family Medicine; Visit Provider Internal Medicine Cardiovascular Disease
DX: I46.9 Cardiac arrest, cause unspecified (principal); I47.20 Ventricular tachycardia, unspecified; I42.9 Cardiomyopathy, unspecified; I11.0 Hypertensive heart disease with heart failure; I50.20 Unspecified systolic (congestive) heart failure; Z87.891 Personal history of nicotine dependence; F41.9 Anxiety disorder, unspecified; F31.9 Bipolar disorder, unspecified; E21.3 Hyperparathyroidism, unspecified; E78.5 Hyperlipidemia, unspecified; Z95.810 Presence of automatic (implantable) cardiac defibrillator; Z82.49 Family history of ischemic heart disease and other diseases of the circulatory system; Z79.82 Long term (current) use of aspirin; K21.9 Gastro-esophageal reflux disease without esophagitis; Z99.81 Dependence on supplemental oxygen; J44.9 Chronic obstructive pulmonary disease, unspecified; Z95.5 Presence of coronary angioplasty implant and graft
CPT/HCPCS: 51702; 71045; 80053; 83880; 84484; 85025; 85610; 93005; 94002; 99291; 99292; J0283; J1938; J2003; J2704; J3490; J9999